=== PATIENT | female | born 2005 | race Hispanic/Latino ===

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

== ENCOUNTER 2023-02-27 20:08 | Emergency (ER) | payer OTHER ==
--- OUTSIDE RECORDS SUMMARY | 2023-02-27 20:13 | XMS REPORT | Continuity of Care Document ---
:2005 Author Organization [facility] t Address [address] [place] [address] Care Team Providers Name Role Phone LIDIA PHELAN Primary Care Physician Unavailable LES HUGGINS Attending Clinician Unavailable JOYCE ANDREWS Attending Clinician Unavailable ROBERTO GRIFFITH Attending Clinician Unavailable Roberto Griffith MD Attending Clinician WENDY JANE Attending Clinician Unavailable WENDY JANE Attending Clinician Unavailable Joyce Andrews CNM Attending Clinician Doctor Unassigned, Cesar Chavez Attending Clinician Unavailable ALEXIS MITCHELL Attending Clinician Unavailable Alexis Odell S Attending Clinician ANNABELLE JO Attending Clinician Unavailable BANDAR CASTILLO Attending Clinician Unavailable Bandar Castillo MD Attending Clinician Facundo Kwon Attending Clinician Unavailable Mayra Pandey Attending Clinician MAYRA SAAVEDRA Attending Clinician Unavailable RENETTA COON Attending Clinician Unavailable VIANEY GARCIA Attending Clinician Unavailable Renetta Clark Attending Clinician 2, [facility] Attending Clinician Unavailable Annabelle Jo PA-C Attending Clinician Nurse, [facility] Attending Clinician Unavailable Radha MORENO, Vianey Hernandez Attending Clinician Jovanny MORENO, Samanta Groves Attending Clinician Teri RN, Lucrecia M Attending Clinician Unavailable Belinda Hall DO Attending Clinician Les Huggins MD Attending Clinician Lab, [facility] Attending Clinician Unavailable Page Barker Attending Clinician PAGE RED Attending Clinician Unavailable PANKAJ REESE Attending Clinician Unavailable Butch MENDEZ, Mariaa Gibbs Attending Clinician MARIAA RAE Attending Clinician Unavailable LES HUGGINS Admitting Clinician Unavailable KNOW, DOES_NOT Admitting Clinician Unavailable Les Huggins MD Admitting Clinician BELINDA HALL Admitting Clinician Unavailable Payers Payer Name Policy Type Policy Number Effective Date Expiration Date Camille PETERSON [id number] 2020 HEALTH 00:00:00 Problems Condition Condition Condition Status Onset Resolution Last Treating Co mments Source Name Details Category Date Date Treatment Clinician Date Obesity Obesity Disease Active Univers (BMI (BMI 5-06 ity of 30-39.9) 30-39.9) 00:00: [address] Encounter Encounter Disease Active Uni vers for other for other 5-05 ity of general general 00:00: [place] counseling counseling 00 Me dical or advice or advice Bran ch on on contracept contracept ion ion BMI BMI Disease Active 2021- Univers 29.0-29.9, 29.0-29.9, 5-05 it y of adult adult 00:00: [address] BMI BMI Disease Active 2021- Univers 29.0-29.9, 29.0-29.9, 5-05 it y of adult adult 00:00: [address] Menorrhagi Menorrhagi Disease Active U nivers a with a with 3-16 ity of irregular irregular 00:00: [facility] s cycle cycle 00 Medical Branch Vitamin D Vitamin D Disease Active Uni vers deficiency deficiency 3-16 it y of 00:00: [place] 00 Medical Branch Depo-Prove Depo-Prove Disease Active U nivers ra ra 3-16 [place]y of contrace[place] kamran status 00 Me dical Branch Acute Acute Disease Active Overview: Univer s medial medial 9- Formattin ity of meniscus meniscus 00:00: g of this [place] as tear, tear, 00 note Medical left, left, might be Branch subsequent subsequent different encounter encounter from the original. Added automatic ally from request for surgery [id number] Allergies, Adverse Reactions, Alerts Allergy Allergy Status Severity Reaction(s) Onset Inactive Treating Comm ents Source Name Type Date Date Clinician No Known DA Active U [facility] NO KNOWN Drug Active Univers ALLERGIE Class ity of S [facility] Social History Social Habit Start Date Stop Date Quantity Comments Source History [facility] o f Alcohol Comment [place] [facility] ical [facility] Exposure to 2022-12-26 2023-01-05 Not sure [facility] SARS-CoV-2 00:00:00 08:00:00 [facility] (event) Branch Tobacco use and 2022-12-27 2022-12-27 Smokeless tobacco Un iversity of exposure 00:00:00 00:00:00 non-user [facility] Alcohol intake 2022-12-27 2022-12-27 Lifetime University of 00:00:00 00:00:00 non-drinker [place] [facility] (finding) Branch History [facility] 2020-04-05 2020-04-05 1 University o f Alcohol Frequency 00:00:00 00:00:00 [place] M edical Branch History [facility] 2020-04-05 2020-04-05 99 University o f Alcohol Std 00:00:00 00:00:00 [place] [facility] Drinks Branch History [facility] 2020-04-05 2020-04-05 1 University o f Alcohol Binge 00:00:00 00:00:00 [place] [facility] al Branch Sex Assigned At [birth year] Universit y of 00:00:00 00:00:00 [facility] Smoking Status Start Date Stop Date Source Never smoked tobacco [facility] Medications Ordered Filled Start Stop Current Ordering Indication Dosage Frequency Signature Comments Components Source Medication Medication Date Date Medication? Clinician (SIG) Name Name acetaminoph 2022- No 650mg 650 mg, U nivers en 01-05 Oral, ity of (TYLENOL) 13:15: 13:14 ONCE, [place] tablet 650 00 :00 dose, On Medic al mg Fri Branch 01/05/23 at 0815, ALLI amoxicillin 0 Yes [id number] 500mg Take 1 Univers 500 mg 5-12 capsule by ity of capsule 00:00: mouth in [address] and 1 capsule at noon and 1 capsule in the evening. ondansetron Yes [id number] 4mg Take 1 Univers 4 mg 5-12 tablet by ity of disintegrat 00:00: mouth [place] ing tablet 00 every 4 Medica l (four) Branch hours as needed for Nausea and Vomiting (N/V). naproxen 2022- Yes [id number] 500mg Take 1 Univers 500 mg -01-16 tablet by ity of tablet 00:00: 04:59 mouth in [place] 00 :00 [facility] and 1 tablet in the evening. Take with meals. Do all this for 10 days. norethindro Yes [id number] 1{tbl} Take 1 Univers ne-e.estrad 5-03 tablet by ity of ioL-iron 00:00: mouth in [place] (MICROGESTI [facility]) 1.5 morning. Branch mg-30 mcg (21)/75 mg (7) per tablet norethindro Yes [id number] 1{tbl} Take 1 Univers ne-e.estrad 5-03 tablet by ity of ioL-iron 00:00: mouth in [place] (MICROGESTI 00 [facility]) 1.5 morning. Branch mg-30 mcg (21)/75 mg (7) per tablet norethindro 0 Yes [id number] 1{tbl} Take 1 Univers ne-e.estrad 5-03 tablet by ity of ioL-iron 00:00: mouth in [place] (MICROGESTI 00 [facility]) 1.5 morning. Branch mg-30 mcg (21)/75 mg (7) per tablet naproxen 2022-0 Yes [id number] 500mg Take 1 U nivers (NAPROSYN) 2-01 tablet by ity of 500 mg 00:00: mouth in [place] tablet 00 the Medical morning Branch and 1 tablet in the evening. Take with meals. naproxen 2022-0 Yes [id number] 500mg Take 1 U nivers (NAPROSYN) 2- tablet by ity of 500 mg 00:00: mouth in [place] tablet 00 the Medical morning Branch and 1 tablet in the evening. Take with meals. naproxen 2022- No [id number] 500mg Take 1 Univers (NAPROSYN) 09-27- tablet by ity of 500 mg 00:00: 00:00 mouth in [place] tablet 00 :00 the Medical morning Branch and 1 tablet in the evening. Take with meals. naproxen 2022-0 2022- No [id number] 500mg Take 1 Univers (NAPROSYN) 09-27 tablet by ity of 500 mg 00:00: 00:00 mouth in [place] tablet 00 :00 the Medical morning Branch and 1 tablet in the evening. Take with meals. ibuprofen 2022- No 800mg 800 mg, Uni vers (IBU) 09-2530 Oral, ity of tablet 800 04:30: 04:33 ONCE, 1 [place] mg 00 :00 dose, On [facility] Branch 09/24/22 at 2230, ALLI No known No Univers medications -05 ity of 16:08: [address] No known No No known Unive rs medications -05 medication it y of 16:08: s [address] pantoprazol 2021- No 40mg Take 40 mg Univers e 40 mg EC 12-0505 by mouth ity of tablet 00:00: 00:00 daily. [place] 00 :00 [facility] metroNIDAZO 2021- No [id number] 500mg Take 1 Univers LE 500 mg 11-1605 tablet by ity of tablet 00:00: 00:00 mouth [place] 00 :00 every 12 Medical (twelve) Branch hours. ergocalcife 2021- No [id number] 84580N Take 1 Univers rol, 12-29 capsule by ity of vitamin d2, 00:00: 00:00 [place] 1,250 mcg 00 :00 weekly. Medical (50,000 Branch unit) capsule ranitidine 2021- 150mg Take 1 Uni vers (ZANTAC) 10-07 tablet by ity o f 150 mg 00:00: 00:00 mouth 2 [place] tablet 00 :00 (two) Medical times Branch daily. Follow up with your MD for further evaluation and treatment. Immunizations Ordered Immunization Filled Immunization Date Status Commen ts Source Name Name [facility] 2022-12-27 Completed University of 00:00:[place] [id number] 2022-12-27 Completed University of 00:00:00 [place] [id number] 2022-12-27 Completed University of 00:00:00 [facility] Meningococcal 2020-03-30 Completed University of Polysaccharide 00:00:00 [place] Medi lucia (groups A, C, Y and Branc h W-135) conjugate vaccine (MCV4P) Meningococcal 2020-03-30 Completed University of Polysaccharide 00:00:00 [place] Medi lucia (groups A, C, Y and Branc h W-135) conjugate vaccine (MCV4P) Meningococcal 2020-03-30 Completed University of Polysaccharide 00:00:00 [place] Medi lucia (groups A, C, Y and Branc h W-135) conjugate vaccine (MCV4P) [facility] 2016-04-17 Completed University of 00:00:00 [facility] Meningococcal 2016-04-17 Completed University of Polysaccharide 00:00:00 [place] Medi lucia (groups A, C, Y and Branc h W-135) conjugate vaccine (MCV4P) TDAP 2016-04-17 Completed University of 00:00:00 [facility] HPV9 2016-04-17 Completed University of 00:00:00 [facility] Meningococcal 2016-04-17 Completed University of Polysaccharide 00:00:00 [place] Medi lucia (groups A, C, Y and Branc h W-135) conjugate vaccine (MCV4P) TDAP 2016-04-17 Completed University of 00:00:00 [facility] HPV9 2016-04-17 Completed University of 00:00:00 [facility] Meningococcal 2016-04-17 Completed University of Polysaccharide 00:00:00 [place] Medi lucia (groups A, C, Y and Branc h W-135) conjugate vaccine (MCV4P) TDAP 2016-04-17 Completed University of 00:00:00 [facility] HEPATITIS A 2009-06-30 Completed University of 00:00:00 [facility] Varicella 2009-06-30 Completed University of (varivax)(chicken 00:00:00 [place] M edical pox) Branch HEPATITIS A 2009-06-30 Completed University of 00:00:00 [facility] Varicella 2009-06-30 Completed University of (varivax)(chicken 00:00:00 [facility] edical pox) Branch HEPATITIS A 2009-06-30 Completed University of 00:00:00 [facility] Varicella 2009-06-30 Completed University of (varivax)(chicken 00:00:00 [facility] edical pox) Branch DTaP, Unspecified 2007-06-10 Completed Univers ity of Formulation 00:00:00 [facility] HEPATITIS A 2007-06-10 Completed University of 00:00:00 [facility] Hib-HbOC 2007-06-10 Completed University of 00:00:00 [facility] MMR 2007-06-10 Completed University of 00:00:00 [facility] Pneumococcal 7 2007-06-10 Completed University of Conjugate, PCV7 00:00:00 [place] [facility] ical (Prevnar7) Branch IPV 2007-06-10 Completed University of 00:00:00 [facility] DTaP, Unspecified 2007-06-10 Completed Univers ity of Formulation 00:00:00 [facility] HEPATITIS A 2007-06-10 Completed University of 00:00:00 [facility] Hib-HbOC 2007-06-10 Completed University of 00:00:00 [facility] MMR 2007-06-10 Completed University of 00:00:00 [facility] Pneumococcal 7 2007-06-10 Completed University of Conjugate, PCV7 00:00:00 [place] [facility] ical (Prevnar7) Branch IPV 2007-06-10 Completed University of 00:00:00 [facility] DTaP, Unspecified 2007-06-10 Completed Univers ity of Formulation 00:00:00 [facility] HEPATITIS A 2007-06-10 Completed University of 00:00:00 [facility] Hib-HbOC 2007-06-10 Completed University of 00:00:00 [facility] MMR 2007-06-10 Completed University of 00:00:00 [place] [facility] Pneumococcal 7 2007-06-10 Completed University of Conjugate, PCV7 00:00:00 [place] [facility] ical (Prevnar7) Branch IPV 2007-06-10 Completed University of 00:00:00 [facility] Branch DTaP, Unspecified 2004-03-30 Completed Univers ity of Formulation 00:00:00 [facility] HIB 4 Dose Schedule 2004-03-30 Completed Unive rsity of 00:00:00 [facility] MMR 2004-03-30 Completed University of 00:00:00 [facility] Branch IPV 2004-03-30 Completed University of 00:00:00 [facility] Branch Varicella 2004-03-30 Completed University of (varivax)(chicken 00:00:00 [place] M [facility]ical pox) Branch DTaP, Unspecified 2004-03-30 Completed Univers ity of Formulation 00:00:00 [facility] HIB 4 Dose Schedule 2004-03-30 Completed Unive rsity of 00:00:00 [facility] MMR 2004-03-30 Completed University of 00:00:00 [facility] IPV 2004-03-30 Completed University of 00:00:00 [facility] Varicella 2004-03-30 Completed University of (varivax)(chicken 00:00:00 [place] M edical pox) Branch DTaP, Unspecified 2004-03-30 Completed Univers ity of Formulation 00:00:00 [facility] HIB 4 Dose Schedule 2004-03-30 Completed Unive rsity of 00:00:00 [facility] MMR 2004-03-30 Completed University of 00:00:00 [facility] IPV 2004-03-30 Completed University of 00:00:00 [facility] Varicella 2004-03-30 Completed University of (varivax)(chicken 00:00:00 [place] M edical pox) Branch DTaP, Unspecified 2003 Completed Univers ity of Formulation 00:00:00 [facility] Hep B, Adol or Pedi 2003 Completed Unive rsity of Dosage 00:00:00 [facility] HIB 4 Dose Schedule 2003 Completed Unive rsity of 00:00:00 [facility] Pneumococcal 7 2003 Completed University of Conjugate, PCV7 00:00:00 [place] [facility] ical (Prevnar7) Branch IPV 2003 Completed University of 00:00:00 [facility] Branch DTaP, Unspecified 2003 Completed Univers ity of Formulation 00:00:00 [facility] Hep B, Adol or Pedi 2003 Completed Unive rsity of Dosage 00:00:00 [facility] HIB 4 Dose Schedule 2003 Completed Unive rsity of 00:00:00 [facility] Pneumococcal 7 2003 Completed University of Conjugate, PCV7 00:00:00 [place] [facility] ical (Prevnar7) Branch IPV 2003 Completed University of 00:00:00 [facility] DTaP, Unspecified 2003 Completed Univers ity of Formulation 00:00:00 [facility] Hep B, Adol or Pedi 2003 Completed Unive rsity of Dosage 00:00:00 [facility] HIB 4 Dose Schedule 2003 Completed Unive rsity of 00:00:00 [facility] Pneumococcal 7 2003 Completed University of Conjugate, PCV7 00:00:00 [place] [facility] ical (Prevnar7) Branch IPV 2003 Completed University of 00:00:00 [facility] DTaP, Unspecified 2003 Completed Univers ity of Formulation 00:00:00 [facility] Hep B, Adol or Pedi 2003 Completed Unive rsity of Dosage 00:00:00 [facility] HIB 4 Dose Schedule 2003 Completed Unive rsity of 00:00:00 [facility] Pneumococcal 7 2003 Completed University of Conjugate, PCV7 00:00:00 [place] Med ical (Prevnar7) Branch IPV 2003 Completed University of 00:00:00 [facility] DTaP, Unspecified 2003 Completed Univers ity of Formulation 00:00:00 [facility] Hep B, Adol or Pedi 2003 Completed Unive rsity of Dosage 00:00:00 [facility] HIB 4 Dose Schedule 2003 Completed Unive rsity of 00:00:00 [facility] Pneumococcal 7 2003 Completed University of Conjugate, PCV7 00:00:00 [place] [facility] ical (Prevnar7) Branch IPV 2003 Completed University of 00:00:00 [facility] DTaP, Unspecified 2003 Completed Univers ity of Formulation 00:00:00 [facility] Hep B, Adol or Pedi 2003 Completed Unive rsity of Dosage 00:00:00 [facility] HIB 4 Dose Schedule 2003 Completed Unive rsity of 00:00:00 [facility] Pneumococcal 7 2003 Completed University of Conjugate, PCV7 00:00:00 [place] Med ical (Prevnar7) Branch IPV 2003 Completed University of 00:00:00 [facility] Hep B, Adol or Pedi 2003 Completed Unive rsity of Dosage 00:00:00 [facility] Hep B, Adol or Pedi 2003 Completed Unive rsity of Dosage 00:00:00 [facility] Hep B, Adol or Pedi 2003 Completed Unive rsity of Dosage 00:00:00 [facility] Vital Signs Vital Name Observation Time Observation Value Comments Source Body temperature 2023-01-05 14:10:13 37.72 [place] Univ ersity of [facility] Systolic blood 2023-01-05 14:00:00 119 mm[Hg] Univer sity of pressure [facility] Diastolic blood 2023-01-05 14:00:00 79 mm[Hg] Unive rsity of pressure [facility] Heart rate 2023-01-05 14:00:00 89 /min [facility] Respiratory rate 2023-01-05 14:00:00 15 /[facility] in 2023-01-05 14:00:00 96 /min [facility] Arterial blood by [facility] Pulse oximetry [place] Body height 2023-01-05 13:02:00 152.4 cm [facility] Body weight 2023-01-05 13:02:00 72.576 kg [facility] BMI 2023-01-05 13:02:00 31.25 kg/m2 [facility] Systolic blood 2022-12-27 16:46:00 105 mm[Hg] Univer sity of pressure [facility] Diastolic blood 2022-12-27 16:46:00 70 mm[Hg] Unive rsity of pressure [facility] Heart rate 2022-12-27 16:46:00 71 /min [facility] Body temperature 2022-12-27 16:46:00 36.78 [place] Univ ersity of [place] [facility] Respiratory rate 2022-12-27 16:46:00 18 /min Univ ersity of [place] [facility] Body height 2022-12-27 16:46:00 152.4 cm Universi ty of [place] [facility] [place] Body weight 2022-12-27 16:46:00 73.539 kg Universi ty of [place] [facility] BMI 2022-12-27 16:46:00 31.66 kg/m2 Universi ty of [facility] Systolic blood 2022-09-28 02:27:00 133 mm[Hg] Univer sity of pressure [place] [facility] Diastolic blood 2022-09-28 02:27:00 91 mm[Hg] Unive rsity of pressure [facility] Branch Heart rate 2022-09-28 02:27:00 94 /min Universi ty of [facility] Body temperature 2022-09-28 02:27:00 37.39 [place] Univ ersity of [facility] Respiratory rate 2022-09-28 02:27:00 16 /min Univ ersity of [facility] Body height 2022-09-28 02:27:00 152.4 cm Universi ty of [place] [facility] Body weight 2022-09-28 02:27:00 68.13 kg Universi ty of [place] [facility] BMI 2022-09-28 02:27:00 29.33 kg/m2 Universi ty of [place] [facility] Oxygen saturation in 2022-09-28 02:27:00 100 /min University of Arterial blood by [facility] Pulse oximetry Branch Systolic blood 2022-09-25 03:45:00 124 mm[Hg] Univer sity of pressure [place] [facility] Diastolic blood 2022-09-25 03:45:00 79 mm[Hg] Unive rsity of pressure [facility] Heart rate 2022-09-25 03:45:00 81 /min Universi ty of [facility] Body temperature 2022-09-25 03:45:00 36.89 [place] Univ ersity of [facility] Respiratory rate 2022-09-25 03:45:00 15 /min Univ ersity of [facility] Branch Body height 2022-09-25 03:45:00 152.4 cm Universi ty of [facility] Branch Body weight 2022-09-25 03:45:00 68.04 kg [facility] BMI 2022-09-25 03:45:00 29.29 kg/m2 [facility] Oxygen saturation in 2022-09-25 03:45:00 100 /min [facility] blood by [facility] Pulse oximetry Branch Systolic blood 2021-12-29 20:04:00 134 mm[Hg] Univer sity of pressure [facility] Diastolic blood 2021-12-29 20:04:00 86 [facility]Hg[facility] 2021-12-29 20:04:00 76 /min [facility] Body temperature 2021-12-29 20:04:00 36.94 [place] [facility] Respiratory rate 2021-12-29 20:04:00 18 /min [facility] Body height 2021-12-29 20:04:00 152.4 cm [facility] Body weight 2021-12-29 20:04:00 68.856 kg [facility] BMI 2021-12-29 20:04:00 29.65 kg/m2 [facility] Body mass index 2021-12-29 20:04:00 93.49 % Unive rsity of (BMI) [Percentile] [facility] ica Per age and sex Branch Procedures Procedure Date / Time Performing Clinician Source Performed RAPID STREP SCREEN FOR 2023-01-05 13:18:00 [facility] GROUP A [facility] RAPID INFLUENZA A/B 2023-01-05 13:09:00 Roberto Griffith [facility] COVID-19 (ID NOW RAPID 2023-01-05 13:09:00 [facility] TESTING) [facility] THYROID STIMULATING 2022-12-27 17:10:00 Joyce Andrews [facility] HORMONE [facility] CBC WITH DIFF 2022-12-27 17:10:00 Joyce Andrews [facility] GLYCOSYLATED HEMOGLOBIN 2022-12-27 17:10:00 Joyce Andrews [facility] (A1C) [facility] RUBELLA SCREEN IGG 2022-12-27 17:10:00 [facility] HCV ANTIBODY 2022-12-27 17:10:00 Joyce Andrews [facility] GC & CHLAMYDIA 2022-12-27 17:10:00 Joyce Andrews [facility] AMPLIFIED ASSAY [facility] HIV 1/2 AG-AB WITH 2022-12-27 17:10:00 [facility] REFLEX [facility] SYPHILIS IGG/IGM 2022-12-27 17:10:00 Joyce Andrews [facility] GARDASIL 9 (HPV 9V) 2022-12-27 16:53:08 Joyce Andrews [facility] VACCINE [facility] POCT TEST 2022-12-27 16:47:00 Joyce Andrews [facility] ASSIGNMENT OF BENEFITS 2022-12-27 15:53:31 Doctor Unassigned, No [facility] CONSENT/REFUSAL FOR 2022-09-28 02:20:10 [facility] POCT TEST 2022-09-25 04:35:00 Bandar Castillo [facility] NOTICE OF PRIVACY 2022-09-25 03:45:44 Doctor Unassigned, No [facility] PRACTICES [facility] CONSENT/REFUSAL FOR 2022-09-25 03:44:56 [facility] Encounters Start End Encounter Admission Attending Care Care Encounter Source Date/Time Date/Time Type Type Clinicians Facility Department ID 2021-06-[address] [facility] [id number] Univers 08:58:39 [facility] 2021-06-[address] [facility] [id number] Univers 18:43:46 LES [facility] 2023-03-27 2023-03-[address] [facility] [id number] Univers 13:30:00 13:30:00 JOYCE [facility] 2023-01-05 2023-01-05 Emergency X NACHO [facility] ERT [id number] Univers 08:03:00 09:46:00 ROBERTO [facility] 2023-01-05 2023-01-05 Emergency Nacho [facility] [id number] Univers 08:03:00 09:46:00 Roberto ROBERTO [id number] i ty of [place] [id number] [facility] [id number] [address] 2022-12-27 2022-12-[address] [facility] [id number] Univers 11:00:00 12:13:57 JOYCE [facility] 2022-12-27 2022-12-27 [facility] [id number] Univers 11:00:00 12:13:57 Visit Joyce Carl TANNERY GUMMER [id number] i ty of [facility] [id number] [place] as MATERNAL [id number] Med ical & CHILD [address] [place] [address] 2022-12-27 2022-12-27 Orders Doctor BLAYNE [id number] Univers 00:00:00 00:00:00 Only Unassigned, ULISES [id number] ity of Cesar Chavez [facility] [id number] [place] as [id number] [address] 2022-09-27 2022-09-27 Emergency X ANDRES [facility] ERT [id number] Univers 20:33:00 21:45:00 ALEXIS [facility] 2022-09-27 2022-09-27 [facility] [id number] Univers 20:33:00 21:45:00 Alexis ROBERTO [id number] i ty of [place] [id number] [facility] [id number] [address] 2022-09-27 2022-09-[address] [facility] [id number] Univers 10:15:00 10:15:00 ANNABELLE [facility] 2022-09-24 2022-09-24 Emergency X JONATHAN [facility] ERT [id number] Univers 21:55:00 23:00:00 BANDAR ity of [facility] 2022-09-24 2022-09-24 Emergency [facility] 1.2.663.502 [id number] Univers 21:55:00 23:00:00 Bandar Obrien IRON [place] 350.1.13.10 ity of [place] 4.2.7.2.686 [facility] [phone] [facility] [address] 2022-01-06 2022-01-06 Outpatient Facundo Almanzar [facility] DAYS [id number] [facility] 09:56:00 09:56:[address] [place] [address] 2021-12-30 2021-12-30 Telephone [facility] 1.2.668.559 [id number] Univers 00:00:00 00:00:00 Mayra Tony TANNERY GUMMER 350.1.13.10 ity of [facility] 4.2.7.2.686 Marcos as MATERNAL [phone] Med ical & CHILD [address] [place] [address] 2021-12-29 2021-12-[address] [facility] [id number] Univers 15:15:00 15:46:42 JESSEARSEN ity o f [facility] 2021-12-29 2021-12-29 Office [facility] 1.2.840.114 [id number] Univers 15:15:00 15:46:42 Visit Mayra Tony TANNERY GUMMER 350.1.13.10 ity of [facility] 4.2.7.2.686 Marcos as MATERNAL [phone] Med ical & CHILD [address] [place] [address] 2021-12-29 2021-12-29 Orders Doctor CISNEROS 1.2.840.114 [id number] Univers 00:00:00 00:00:00 Only Unassigned, ULISES 350.1.13.10 ity of [place] [facility] 4.2.7.2.686 Marcos as [phone] [facility] [address] 2021-12-22 2021-12-[address] [facility] [id number] Univers 09:45:00 09:45:[address] [facility] 2021-12-22 2021-12-[address] [facility] [id number] Univers 09:45:00 09:45:[address] [facility] 2021-12-14 2021-12-[address] [facility] [id number] Univers 15:00:00 15:00:00 [facility] 2021-12-08 2021-12-[address] [facility] [id number] Univers 08:53:50 23:59:00 [facility] 2021-12-08 2021-12-[address] [facility] [id number] Univers 08:45:00 10:02:07 [facility] 2021-12-08 2021-12-[address] [facility] [id number] Univers 08:45:00 10:02:07 [facility] 2021-12-08 2021-12-08 Office [facility] 1.2.840.114 [id number] Univers 08:45:00 09:00:[address] [facility] 350.1.13.10 it y of [place] 4.2.7.2.686 Marcos as MAURICE?BLEA [phone] In derrellal JOHANNY [address] [place] [address] MEDICAL OFFICE BUILDING 2021-12-01 2021-12-[address] [facility] [id number] Univers 14:15:00 14:15:00 [facility] 2021-12-01 2021-12-[address] [facility] [id number] Univers 14:15:00 14:15:00 [facility] 2021-11-29 2021-11-29 Construction Materials Tester 2, Adc Lab [facility] 1.2.840.114 [id number] Univers 09:15:00 09:30:00 Visit Annabelle Jo 350.1.13.10 ity of [place].2.[place] [phone] [facility] 353 [facility] 2021-11-29 2021-11-[address] [facility] [id number] Univers 09:15:00 09:15:[address] [facility] 2021-11-29 2021-11-[address] [facility] [id number] Univers 09:15:00 09:15:[address] [facility] 2021-11-29 2021-11-29 Office Sandro [facility] 1.2.436.736 [id number] Univers 08:30:00 08:30:00 Visit Annabelle ROBERTO 350.1.13.10 i ty of [place].2.7.2.[place] [phone] [address] 2021-11-24 2021-11-24 Orders Doctor BLAYNE 1.2.840.114 [id number] Univers 00:00:00 00:00:00 Only Unassigned, ULISES 350.1.13.10 ity of [facility] 4.2.7.2.686 Marcos as [phone] [address] 2021-11-17 2021-11-[address] [facility] [id number] Univers 15:00:00 15:00:[address] [facility] 2021-11-09 2021-11-[address] [facility] [id number] Univers 09:00:00 09:00:00 ANNABELLE [facility] 2021-09-21 2021-09-21 Nurse Nurse, [facility] 1.2.840.114 [id number] Univers 15:30:00 15:41:13 Visit Vianey Garcia 350.1.13.10 ity of [place].2.[place] [phone] [address] 2021-09-21 2021-09-[address] [facility] [id number] Univers 15:30:00 15:30:[address] [facility] 2021-09-13 2021-09-13 Outpatient R RADHA, [facility] [id number] Univers 15:30:00 15:30:00 VIANEY ity of [facility] 2021-08-03 2021-08-[address] [facility] [id number] Univers 15:30:00 15:30:00 ity of [facility] 2021-05-11 2021-05-11 Nurse Nurse, [facility] 1.2.840.114 [id number] Univers 15:44:35 16:44:44 Visit Jovanny Samantamane Roberto 350.1.13.10 ity [facility] 4.2.7.2.686 [place] [phone] In dical [address] 2021-05-11 2021-05-[address] [facility] [id number] Univers 08:00:00 08:00:[address] [facility] 2021-05-11 2021-05-11 Orders Doctor CISNEROS 1.2.840.114 [id number] Univers 00:00:00 00:00:00 Only Unassigned, ULISES 350.1.13.10 ity of [facility] 4.2.7.2.686 Marcos as [phone] [facility] [address] 2021-05-10 2021-05-[address] [facility] [id number] Univers 08:00:00 08:00:00 ity of [facility] 2021-05-03 2021-05-[address] [facility] [id number] Univers 15:00:00 15:00:00 ity of [facility] 2021-04-30 2021-04-30 Nurse Lucrecia Williamson 1.2.840.114 [id number] Univers 00:00:00 00:00:00 Triage ULISES 350.1.13.10 it y of [facility] 4.2.7.2.686 Marcos as [phone] [facility] [address] 2021-03-18 2021-03-[address] [facility] [id number] Univers 15:30:00 15:30:00 ity of [facility] 2021-03-16 2021-03-[address] [facility] [id number] Univers 14:30:00 14:30:[address] [facility] 2021-03-16 2021-03-16 Telephone [facility] 1.2.941.483 [id number] Univers 00:00:00 00:00:00 Vianey Pedroton 350.1.13.10 ity of [place].2.7.2.686 [place] [phone] [facility] 134 [facility] 2021-02-25 2021-02-[address] [facility] [id number] Univers 10:15:00 10:15:00 [facility] 2021-02-17 2021-02-17 [facility] [id number] Univers 15:00:00 15:00:00 RENETTA [facility] 2021-02-11 2021-02-[address] [facility] [id number] Univers 10:00:00 10:00:00 RENETTA [facility] 2020-12-15 2020-12-15 Construction Materials Tester 2, [facility] 1.2.840.114 [id number] Univers 14:23:49 14:38:49 Visit Tigrezahida Vianey Hernandez Felisa 350.1.13.10 ity of [place].2.7.2.[place] [phone] [facility] 353 [facility] 2020-12-15 2020-12-15 Nurse Nurse, [facility] 1.2.840.114 [id number] Univers 13:51:57 14:18:57 Visit TigreVianey teagueton 350.1.13.10 ity of [place].2.[place] [phone] [facility] 134 [facility] 2020-12-15 2020-12-[address] [facility] [id number] Univers 14:00:00 14:00:[address] [facility] 2020-12-06 2020-12-06 Out[facility] [id number] Univers 13:30:00 13:30:00 [facility] 2020-11-20 2020-11-20 Emergency [facility] 1.2.840.114 [id number] Univers 17:26:00 17:37:00 Belinda Fenton Felisa 350.1.13.10 ity of [place] 4.2.7.2.686 [place] [phone] [facility] [address] 2020-11-20 2020-11-20 Orders Doctor BLAYNE 1.2.840.114 [id number] Univers 00:00:00 00:00:00 Only Unassigned, ULISES 350.1.13.10 [facility] 4.2.7.2.686 Marcos as [phone] [facility] [address] 2020-11-16 2020-11-16 [facility] 1.2.840.114 [id number] Univers 00:00:00 00:00:00 Management Vianey David Fel[place] 350.1.13.10 ity of [place].2.[place] [phone] In dical nal [address] [place] [address] 2020-11-09 2020-11-09 [facility] 1.2.840.114 [id number] Univers 13:35:56 15:09:56 Visit Vianey Hernandez Felisa 350.1.13.10 ity of [place] 4.2.7.2.686 [place] [phone] In dical nal [address] [place] [address] 2020-11-09 2020-11-09 Outpatient R RADHA, [facility] [id number] Univers 13:30:00 13:30:[address] [facility] 2020-11-08 2020-11-[address] [facility] [id number] Univers 15:45:00 15:45:[address] [facility] 2020-11-05 2020-11-05 Outpatient R RADHA, [facility] [id number] Univers 15:00:00 15:00:[address] [facility] 2020-11-04 2020-11-04 Outpatient R ADUM, [facility] [id number] Univers 14:30:00 14:30:00 VIANEY ity of [facility] 2020-11-02 2020-11-02 Telephone Adum, [facility] 1.2.941.456 [id number] Univers 00:00:00 00:00:00 Vianey Roberto 350.1.13.10 ity of [place].2.[place] [phone] In dical nal 134 [facility] 2020-09-23 2020-09-23 Orders Doctor BLAYNE 1.2.840.114 [id number] Univers 00:00:00 00:00:00 Only Unassigned, ULISES 350.1.13.10 [facility] 4.2.7.2.686 Marcos as [phone] [address] 2020-09-15 2020-09-15 Case Ad, [facility] 1.2.840.114 [id number] Univers 00:00:00 00:00:00 Management Vianey Roberto 350.1.13.10 ity of [place] 4[place]2.7.2.686 [place] [phone] In dical nal 134 [facility] 2020-09-10 2020-09-10 Case Ad, [facility] 1.2.840.114 [id number] Univers 00:00:00 00:00:00 Management Vianey Roberto 350.1.13.10 ity of [place] 4.2.7.2.686 [place] [phone] In dical nal 134 [facility] 2020-09-09 2020-09-09 Construction Materials Tester 2, Adc Lab [facility] 1.2.840.114 [id number] Univers 10:14:30 10:29:30 Visit Adum, Vianey Roberto 350.1.13.10 ity of [place] 4.2.7.2.686 [place] [phone] In dical nal 353 [facility] 2020-09-09 2020-09-09 Office Adum, [facility] 1.2.840.114 [id number] Univers 08:31:02 09:58:53 Visit Vianey Roberto 350.1.13.10 ity of [place] 4.2.7.2.686 [place] [phone] Me dical nal 134 [facility] 2020-09-09 2020-09-[address] [facility] [id number] Univers 09:00:00 09:00:[address] [facility] 2020-09-09 2020-09-09 Orders Doctor BLAYNE 1.2.840.114 [id number] Univers 00:00:00 00:00:00 Only Unassigned, ULISES 350.1.13.10 ity of [facility] 4.2.7.2.686 Marcos as [phone] [address] 2020-06-15 2020-06-15 Orders Doctor BLAYNE 1.2.840.114 [id number] Univers 00:00:00 00:00:00 Only Unassigned, ULISES 350.1.13.10 ity of [facility] 4.2.7.2.686 Marcos as [id number] [address] 2020-06-07 2020-06-07 Office [facility] 1.2.840.114 [id number] Univers 15:12:17 15:27:17 Visit [facility] 350.1.13.10 it y of Surgical 4.2.7.2.686 Marcos as Specialti [phone] In dical 198 [facility] 2020-06-07 2020-06-07 Out[facility] [id number] Univers 15:00:00 15:00:[address] [facility] 2020-05-24 2020-05-24 [facility] 1.2.840.114 [id number] Univers 05:58:00 09:24:00 Encounter Les Roberto 350.1.13.10 ity of [place].2.[place] Surgical [phone] [address] 2020-05-22 2020-05-22 Laboratory Lab, Adc Fam Pob I [facility] 1.2. 840.114 [id number] Univers 13:24:32 13:44:32 Only Page Red [facility] 350.1.13.10 ity of [place] 4.2.7.2.686 Marcos as Professio [phone] Me dical nal [address] Office [facility] 2020-05-22 2020-05-[address] [facility] [id number] Univers 13:20:00 13:20:00 PAGE [facility] 2020-05-21 2020-05-[address] [facility] [id number] Univers 11:00:00 11:00:[address] [facility] 2020-05-17 2020-05-17 Prep [facility] 1.2.840.114 [id number] Univers 00:00:00 00:00:00 Surgery Les Hernandez Health 350.1.13.10 it y of Surgical 4.2.7.2.686 Marcos as Specialti [phone] Me dical es 198 [facility] 2020-05-13 2020-05-13 Office Renetta Coon [facility] 1.2.840.114 [id number] Univers 11:14:45 11:39:37 Visit Les Huggins I.Predictus 350.1.13.10 ity of Surgical 4.2.7.2.686 Marcos as Specialti [phone] Me dical es 198 [facility] 2020-05-13 2020-05-13 Outpatient [facility] [id number] Univers 11:00:00 11:00:00 LES [facility] 2020-05-13 2020-05-13 Letter [facility] 1.2.840.114 [id number] Univers 00:00:00 00:00:00 (Out) Renetta S Health 350.1.13.10 it y of Surgical 4.2.7.2.686 Marcos as Specialti [phone] In dical es 198 [facility] 2020-05-13 2020-05-13 Letter [facility] 1.2.840.114 [id number] Univers 00:00:00 00:00:00 (Out) Renetta S Health 350.1.13.10 it y of Surgical 4.2.7.2.686 Marcos as Specialti [phone] In dical es 198 [facility] 2020-05-05 2020-05-05 Hospital [facility] 1.2.840.114 [id number] Univers 15:15:00 23:59:00 Encounter Les L SPECIALTY 350.1.13.10 ity of [place] 4.2.7.2.686 [place] C[place] AT [phone] In dicmerle FAJARDO 804 [facility] 2020-05-05 2020-05-05 Outpatient [facility] [id number] Univers 00:00:00 00:00:00 [facility] 2020-04-15 2020-04-15 Orders Doctor BLAYNE 1.2.840.114 [id number] Univers 00:00:00 00:00:00 Only Unassigned, ULISES 350.1.13.10 ity of [place] [facility] 4.2.7.2.686 Marcos as [phone] [address] 2020-04-08 2020-04-08 Telephone [facility] 1.2.840.114 [id number] Univers 00:00:00 00:00:00 Les L Health 350.1.13.10 it y of Surgical 4.2.7.2.686 Marcos as Specialti [phone] In dical es 198 [facility] 2020-04-05 2020-04-05 Office [facility] 1.2.840.114 [id number] Univers 14:45:57 15:00:57 Visit [facility] 350.1.13.10 it y of Surgical 4.2.7.2.686 Marcos as Specialti [phone] In dical es 198 [facility] 2020-04-05 2020-04-05 Outpatient Cecily [facility] [id number] Univers 15:00:00 15:00:[address] [facility] 2020-04-01 2020-04-01 Outpatient Cec[facility] [id number] Univers 14:00:00 14:00:00 [facility]ETTA [facility] 2020 2020 Emergency [facility] 1.2.752.178 [id number] Univers 11:37:49 13:13:00 Mariaa Roberto 350.1.13.10 [facility] 4.2.7.2.686 [facility] [phone] [address] 2020 2020 Aishwarya X BUTCH [facility] ERT [id number] Univers 11:37:49 13:13:[address] [facility] Results Test Description Test Time Test Comments Results Result Comments Source RUBELLA SCREEN (ANGELIC) IGG 2022-12-28 19:07:18 Test Item Value Reference Range Interpretation Comme nts Rubella screen IgG (test code = Positive Negative [id number]) ZORAIDA (test code = ZORAIDA) Positive - Indicates the patient was exposed to Rubella through infection or vaccination.Negative - Indicates the patient could be susceptible to Rubella infection.Equivocal - A second specimen should be sent. [facility]IC[facility] [id number] 19:07:18 Test Item Value Reference Range Interpretation Comments Rubella screen IgG Positive Negative (test code = 5232324587) ZORAIDA (test code = ZORAIDA) Positive - Indicates the patient was exposed to Rubella through infection or vaccination.Negative - Indicates the patient could be susceptible to Rubella infection.Equivocal - A second specimen should be sent. [facility] ONLY - SYPHILIS [id number] 17:26:01 Test Item Value Reference Range Interpretation Comments Syphilis IgG/IgM (test Non-reactive Non-reactive code = 08788-0) ZORAIDA (test code = ZORAIDA) Non-reactive - No serologic evidence of T. pallidum infection. Cannot exclude incubating or early syphilis. Submit a second specimen in 2-4 weeks if syphilis is clinically suspected. Equivocal - Further testing to follow. Reactive - Further testing to follow. Lab Interpretation (test Normal code = 56842-3) [facility] ONLY - SYPHILIS [id number] 17:26:01 Test Item Value Reference Range Interpretation Comments Syphilis IgG/IgM (test Non-reactive Non-reactive code = 32384-1) ZORAIDA (test code = ZORAIDA) Non-reactive - No serologic evidence of T. pallidum infection. Cannot exclude incubating or early syphilis. Submit a second specimen in 2-4 weeks if syphilis is clinically suspected. Equivocal - Further testing to follow. Reactive - Further testing to follow. Lab Interpretation (test Normal code = 96663-7) [facility] Center[facility]OGLOBIN (A1C)2022-12-28 15:57:54 Test Item Value Reference Range Interpretation Comments HGB A1C (test code = 5.5 % 4.0-5.7 4548-4) ZORAIDA (test code = ZORAIDA) Reference RangesNormal: <5.7%Prediabetes: 5.7 - 6.4%Diabetes: > 6.5% Lab Interpretation (test Normal code = 12390-6) [facility] (A1C)2022-12-28 15:57:54 Test Item Value Reference Range Interpretation Comments HGB A1C (test code = 5.5 % 4.0-5.7 4548-4) ZORAIDA (test code = ZORAIDA) Reference RangesNormal: <5.7%Prediabetes: 5.7 - 6.4%Diabetes: > 6.5% Lab Interpretation (test Normal code = 05696-5) [facility] Center[facility]/2 AG-AB WITH [id number] 12:20:58 Test Item Value Reference Range Interpretation Comments HIV 0.07 Negative Semi-quantitative (test code = 11006-7) ZORAIDA (test code = Non-reactive for HIV-1 ZORAIDA) antigen and HIV-1/HIV-2 antibodies. ?No laboratory evidence of HIV infection. ?Repeat in 2-4 weeks if acute HIV infection is suspected. [facility] 1/2 AG-AB WITH [id number] 12:20:58 Test Item Value Reference Range Interpretation Comments HIV 0.07 Negative Semi-quantitative (test code = 09018-0) ZORAIDA (test code = Non-reactive for HIV-1 ZROAIDA) antigen and HIV-1/HIV-2 antibodies. ?No laboratory evidence of HIV infection. ?Repeat in 2-4 weeks if acute HIV infection is suspected. [facility] Center[facility] [id number] 09:03:31 Test Item Value Reference Range Interpretation Comments HCV Ab (test code = 05067-6) Negative HCV Semi-Quantitative (test code = 0.02 58418-7) [facility] [id number] 09:03:31 Test Item Value Reference Range Interpretation Comments HCV Ab (test code = 44469-1) Negative HCV Semi-Quantitative (test code = 0.02 03277-8) [facility] CenterTHY[facility]ID STIMULATING [id number] 08:28:04 Test Item Value Reference Range Interpretation Comments TSH (test code = 0.99 See_Comment [Automated message] [id number]) The system [employer] generated this result transmitted ref erence range: 0.45 - 4 .70 mIU/L. The refe rence range was not u sed to interpret this result as normal/abnor mal. Lab Interpretation (test Normal code = 01319-3) [facility] CenterTHY[facility]ID STIMULATING [id number] 08:28:04 Test Item Value Reference Range Interpretation Comments TSH (test code = 0.99 See_Comment [Automated message] [id number]) The system [employer] generated this result transmitted ref erence range: 0.45 - 4 .70 mIU/L. The refe rence range was not u sed to interpret this result as normal/abnor mal. Lab Interpretation (test Normal code = 84028-5) [facility] WITH [id number] 07:54:04 Test Item Value Reference Range Interpretation Comments WBC (test code = 9.41 See_Comment [Automated 6690-2) message] The sy stem which generated this result transmitted reference range : 4.30 - 11.10 10*3/?L. The reference range was not used to interpret this result as normal/abnormal . RBC (test code = 4.84 See_Comment [Automated 789-8) message] The sy stem which generated this result transmitted reference range : 3.93 - 5.25 10*6/?L. The reference range was not used to interpret this result as normal/abnormal . HGB (test code = 14.1 g/dL 11.6-15.0 718-7) HCT (test code = 43.1 % 35.7-45.2 4544-3) MCV (test code = 89.0 fL 80.6-95.5 787-2) MCH (test code = 29.1 pg 25.9-32.8 785-6) MCHC (test code = 32.7 g/dL 31.6-35.1 786-4) RDW-SD (test code = 42.5 fL 39.0-49.9 78260-8) RDW-CV (test code = 13.0 % 12.0-15.5 788-0) PLT (test code = 232 See_Comment [Automated 777-3) message] The sy stem which generated this result transmitted reference range : 166 - 358 10*3/ ?L. The reference r desmond was not used to interpret this result as normal/abnormal . MPV (test code = 11.5 fL 9.5-12.9 46707-0) NRBC/100 WBC (test 0.0 See_Comment [Automat ed code = 6773672317) message] The system which generated this result transmitted reference range : 0.0 - 10.0 /100 WBCs. The refer ence range was not u sed to interpret th is result as normal/abnormal . NRBC x10^3 (test code See_Comment [Auto mated = 1368515316) message] The s ystem which generated this result transmitted reference range : 10*3/?L. The reference range was not used to interpret this result as normal/abnormal . GRAN MAT (NEUT) % 57.6 % (test code = 770-8) IMM GRAN % (test code 0.20 % = 5766749479) LYMPH % (test code = 29.9 % 736-9) MONO % (test code = 8.6 % 5905-5) EOS % (test code = 2.7 % 713-8) BASO % (test code = 1.0 % 706-2) GRAN MAT x10^3(ANC) 5.43 10*3/uL 1.88-7.09 (test code = 3557127968) IMM GRAN x10^3 (test 0.00-0.06 code = 9191509204) LYMPH x10^3 (test code 2.81 10*3/uL 1.32-3.29 = 731-0) MONO x10^3 (test code 0.81 10*3/uL 0.33-0.92 = 742-7) EOS x10^3 (test code = 0.25 10*3/uL 0.03-0.39 711-2) BASO x10^3 (test code 0.09 10*3/uL 0.01-0.07 H = 704-7) Lab Interpretation Abnormal (test code = 26774-5) [facility] WITH [id number] 07:54:04 Test Item Value Reference Range Interpretation Comments WBC (test code = 9.41 See_Comment [Automated 6690-2) message] The sy stem which generated this result transmitted reference range : 4.30 - 11.10 10*3/?L. The reference range was not used to interpret this result as normal/abnormal . RBC (test code = 4.84 See_Comment [Automated 789-8) message] The sy stem which generated this result transmitted reference range : 3.93 - 5.25 10*6/?L. The reference range was not used to interpret this result as normal/abnormal . HGB (test code = 14.1 g/dL 11.6-15.0 718-7) HCT (test code = 43.1 % 35.7-45.2 4544-3) MCV (test code = 89.0 fL 80.6-95.5 787-2) MCH (test code = 29.1 pg 25.9-32.8 785-6) MCHC (test code = 32.7 g/dL 31.6-35.1 786-4) RDW-SD (test code = 42.5 fL 39.0-49.9 68740-3) RDW-CV (test code = 13.0 % 12.0-15.5 788-0) PLT (test code = 232 See_Comment [Automated 777-3) message] The sy stem which generated this result transmitted reference range : 166 - 358 10*3/ ?L. The reference r desmond was not used to interpret this result as normal/abnormal . MPV (test code = 11.5 fL 9.5-12.9 77283-1) NRBC/100 WBC (test 0.0 See_Comment [Automat ed code = [id number]) message] The system which generated this result transmitted reference range : 0.0 - 10.0 /100 WBCs. The refer ence range was not u sed to interpret th is result as normal/abnormal . NRBC x10^3 (test code See_Comment [Auto mated = [id number]) message] The s ystem which generated this result transmitted reference range : 10*3/?L. The reference range was not used to interpret this result as normal/abnormal . GRAN MAT (NEUT) % 57.6 % (test code = 770-8) IMM GRAN % (test code 0.20 % = 0011493483) LYMPH % (test code = 29.9 % 736-9) MONO % (test code = 8.6 % 5905-5) EOS % (test code = 2.7 % 713-8) BASO % (test code = 1.0 % 706-2) GRAN MAT x10^3(ANC) 5.43 10*3/uL 1.88-7.09 (test code = 0481832608) IMM GRAN x10^3 (test 0.00-0.06 code = 2887057844) LYMPH x10^3 (test code 2.81 10*3/uL 1.32-3.29 = 731-0) MONO x10^3 (test code 0.81 10*3/uL 0.33-0.92 = 742-7) EOS x10^3 (test code = 0.25 10*3/uL 0.03-0.39 711-2) BASO x10^3 (test code 0.09 10*3/uL 0.01-0.07 H = 704-7) Lab Interpretation Abnormal (test code = 82711-5) [facility] [id number] 16:47:00 Test Item Value Reference Range Interpretation Comments POCT PREG (test code = 1605) Negative On board controls acceptable with C Yes Line (test code = 3574) POCT PREG LOT # (test code = 3575) POCT PREG TEST DATE (test code = 3576) [facility] [id number] 16:47:00 Test Item Value Reference Range Interpretation Comments POCT PREG (test code = 1605) Negative On board controls acceptable with C Yes Line (test code = 3574) POCT PREG LOT # (test code = 3575) POCT PREG TEST DATE (test code = 3576) [facility] [id number] 04:35:00 Test Item Value Reference Range Interpretation Comments POCT PREG (test code = 1605) negative On board controls acceptable with present C Line (test code = 3574) POCT PREG LOT # (test code = 3575) [id number] POCT PREG TEST DATE (test 2023-11-25 code = 3576) Lab Interpretation (test code = Normal 65221-0) [facility] Test Item Value Reference Range Interpretation Comments SURGICAL (test code = SR) R UN DATE: 01/17/22 [place] - Lab PAGE 1 RUN TIME: 1221 Specimen Inquiry RUN USER: INTERFACE P ATIENT: KATRIN CHASE LOC: ARIELA U #: [id number] AGE/SX: 16/F ROOM: RE01/06/22[facility]: Facundo Kwon MD : 03 BED: DIS: STATUS: ZAHRA JUSTICE TLOC: SPEC #: [id number] RECD: 01/09/22 STATUS: JORDAN LEAVITT #: [id number] KI: 01/06/22-[address] [facility] [address]: Facundo Kwon MD ENTERED: 01/09/22 SP TYPE: SURGICAL OTHR DR: DOES_NOT KNOW ORDERED: 58275/2, 20018, ANATOMIC SPEC COPIES TO: DOES_NOT KNOW Facundo Kwon MD [address] [place] [address] PROCEDURES: 71380 (01/09/22) 12551 (01/10/22-1630) TISSUES: A. DUODENUM BIOPSY B. STOMACH BIOPSY/POLYP - GASTRIC FINAL DIAGNOSIS A) SMALL BOWEL, DUODENUM, BIOPSIES: -Small-bowel duodenal mucosa with no pathologic alteration. -Negative for villous blunting, increased intraepithelial lymphocytes, viral cytopathicchanges, dysplasia, and malignancy. B) STOMACH, BIOPSY:-Gastric mucosa with no pathologic alteration. -Negative for intestinal metaplasia, dysplasia, and malignancy. -Negative for Helicobacter pylori organisms by Giemsa staining; Giemsa control isappropriate. GROSS DESCRIPTION A). The specimen received in formalin labeled, "duodenum biopsy" consists of 3 irregularpink-ibarra soft tissue fragments measuring up to 0.6 cm in greatest dimension in aggregate. The specimen is entirely submitted in cassette A1 B). The specimen received in formalin labeled, "gastric biopsy" consists of 2 irregularpink-ibarra soft tissue fragments measuring up to 0.6 cm in greatest dimension in aggregate. The specimen is entirely submitted in cassette B1 KK CONTINUED ON NEXT PAGE R UN DATE: 01/17/22 [facility] PAGE 2 RUN TIME: 1221 Specimen Inquiry RUN USER: INTERFACE S PEC #: [id number] PATIENT: KATRIN CHASE #[id number] (Continued) GROSS DESCRIPTION (Continued) Technical component excluding immunohistochemistry is performed at [facility], [address] [place] [address] Technical component of all immunohistochemistry is performed at [employer], [address], [address], [place] [address] Immunohistochemistry: This test was developed and its performance characteristicsdetermined by this laboratory. It has not been approved nor does it need approval by the USFDA. Appropriate positive and negative controls are reviewed and judged to be acceptable.This laboratory is certified under the Clinical Laboratory Improvement Amendments (CLIA-88)as qualified to perform high complexity clinical laboratory testing. Unless gross only, the diagnosis is based upon microscopic examination. MICROSCOPIC DESCRIPTION A/B) Microscopic examination supports the pathologic diagnosis. CLINICAL INFORMATION COLLECTION DATE: 01/06/2022 ABDOMINAL PAINPOST-OP DIAGNOSIS: MILD DUODENITIS --------- Signed SIGNATURE ON FILE Zoraida North 01/17/22 1221 END OF REPORT UR HCG [id number] 12:02:00 Test Item Value Reference Range Interpretation Comments UR HCG QUAL (test NEGATIVE This HCGQL test is NOT code = HCGQLU) applicable fo r MALE patients.Check with nurse about probable order error.If Tumor Marker Test needed, nu rse should order test "HCG TU"(Test #[id number])---- - Notes Date/Time Note Provider Source 2022-01-06 15:10:00-00:00 [facility] ([facility]) Post Anesthesia Evaluation REPORT#:[id number] REPORT STATUS: Signed DATE:01/06/22 TIME: 1510 PATIENT: KATRIN CHASE UNIT #: [id number] ROOM/BED: : 03 AGE: 16 SEX: F ATTEND: Facundo Kwon MD ADM AUTHOR: James Conrad MD * ALL edits or amendments must be made on the el [employer]/computer document * Post Anesthesia Evaluation Anes. changes from pre-op eval ORM Surgeries: Surgery Date and Time: 01/06/2022 1040 Proposed Primary Procedure: ESOPHAGOGASTRODUODE NOSCOPY Anesthetic: TIVA Date: 01/06/22 Level of consciousness: tosin ent awake, able to answer questions, participate in this eval. Vital signs: Last Documented: Result Date Time Pulse Ox 100 01/06 141 B/P 121/73 01/06 141 O2 Delivery Room air 01/06 1413 Temp 36.7 01/06 141 Pulse 87 01/06 141 Resp 16 01/06 141 Cardiovascular: CV system stable, vital signs st able Respiratory/Airway: respiratory system stable, m aintains without support Pain: adequately controlled Hydration: adequate, euvolemic Temp status: greater than 96.8F, normothermic Presence of N/V: no Anesthesia complications: no Other changes requiring f/u: none Conclusions: no apparent anes. issues, outpts ev al prior DC home Electronically Signed by James Conrad MD 01/06/[address] [facility] #:[id number] END OF REPORT 2022-01-06 13:42:00-00:00 [id number] [facility] PATIENT NAME: KATRIN CHASE ADMIT DATE: 01/06/22 ACCOUNT NO: [id number] ROOM NO: AGE: 16 REPORT TYPE: ENDOSCOPY REPORT SEX: F DATE OF : 03 ADMITTING PHYSICIAN: ATTENDING PHYSICIAN:Facundo Kwon MD Patient Name: Katrin Chase Attending MD: Edvin Kwon MD Procedure Date: 01/06/2022 1:42 PM 7 Date of : 01/09 Procedure: Upper GI endoscopy Pre Procedure Diagnosis: Epigastric abdominal pa in, Functional Dyspepsia Assistants: Facundo Kwon MD Anesthesia: Monitored Anesthesia Care Procedure: Pre-Anesthesia Assessment: - Prior to the procedure, a History and Physica l was performed, and patient medications and allergies were reviewed. The patient's toleran ce of previous anesthesia was also reviewed. The risk s and benefits of the procedure and the sedation options and risks were discussed with the patie nt. All questions were answered, and informed conse nt was obtained. Prior Anticoagulants: The patien t has taken no anticoagulant or antiplatelet agents. ASA Grade Assessment: I - A normal, healthy patient . After reviewing the risks and benefits, the reggie tenorio was deemed in satisfactory condition to undergo the procedure. The benefits, risks, and alternatives to the procedure were discussed and informed consent w as obtained from the patient. I've assesed the laura beckford on this date and reviewed the medical history, drug history, and previous anesthesia experience. Af ter obtaining informed consent, the scope was passe d under direct vision. Throughout the procedure, the patient's blood pressure, pulse, and oxygen saturations were monitored continuously.s were monitored continuously. The Endoscope was introduced through the mouth, and advanced to t he second part of duodenum. The upper GI endoscopy was accomplished without difficulty. The patient tolerated the procedure well. Post Procedure Findings: The examined esophagus was normal. The entire examined stomach was normal. Biopsi es were taken with a cold forceps for histology. Patchy mild inflammation characterized by PATIENT NAME: KATRIN CHASE 667 congestion (edema) and erythema was found in th e duodenal bulb. Biopsies were taken with a cold forceps for histology. The second portion of the duodenum was normal. Biopsies were taken with a cold forceps for histology. Complications: No immediate complications. Estimated Blood Loss: Estimated blood loss was m inimal. Post Procedure Diagnosis: - Normal esophagus. - Normal stomach. Biopsied. - Duodenitis. Biopsied. - Normal second portion of the duodenum. Biopsi ed. Recommendation: - [facility]. The signs and symptoms of potentia l delayed complications were discussed with the patient. Return to normal activities tomorrow. Written discharge instructions were provided to the patient. - Discharge patient to home. - Resume previous diet. - Continue present medications. - No aspirin, ibuprofen, naproxen, or other non-steroidal anti-inflammatory drugs. - Await pathology results. - Use Protonix (pantoprazole) 40 mg PO daily. - Return to my office in 2 weeks. Facundo Kwon MD 01/06/2022 1:58:50 PM This report has been signed electronically. Number of Addenda: 0 Note Initiated On: 01/06/2022 1:42 PM Procedure Code(s): --- Professional --- 05301, Esophagogastroduodenoscopy, flexible, transoral; with biopsy, single or multiple Diagnosis Code(s): --- Professional --- K29.80, Duodenitis without bleeding R10.13, Epigastric pain K30, Functional dyspepsia CPT copyright 2020 [employer]. All rights reserved. The codes documented in this report are prelimin arjun and upon law clerk review may be revised to meet current compliance requiremen ts. Scope In: Scope Out: Provation {[id number]}.pdf ProVation FT PDF PATIENT NAME: KATRIN CHASE 667 Electronically Signed by Facundo Kwon MD on 01/06 at 1359 PATIENT NAME: KATRIN CHSAE 667
[2023-02-27] MEDS ORDERED: DIPHENHYDRAMINE 50 MG/ML VIAL ONE (20:39)
[2023-02-27] MEDS ORDERED: MORPHINE 4 MG/ML SYR ONE (20:39)
[2023-02-27 20:40] LABS: Absolute Lymphocytes (CBC) 1.1 K/uL (0.7-4.9); Hematocrit 44.8 % (36.0-45.0); Lymphocytes % 6.9 % (15.3-44.8); MCV 87.9 fL (80-100); MPV 8.9 fL (7.6-11.3)
[2023-02-27] MEDS ORDERED: NA CHLORIDE 0.9% 1,000 ML ONE (20:40)
[2023-02-27] MEDS ORDERED: ONDANSETRON 4 MG/2 ML VIAL ONE (20:40)
[2023-02-27] MEDS ORDERED: FAMOTIDINE 20 MG/2 ML VIAL IV ONE (20:40)
[2023-02-27] MEDS ORDERED: KETOROLAC 30 MG/ML INJ ONE (20:40)
[2023-02-27 20:53] LABS: Specific Gravity > 1.030 (1.005-1.030)
[2023-02-27 20:55] LABS: Albumin 4.4 g/dL (3.4-5.0); Bilirubin Total 0.5 mg/dL (0.2-1.0); Potassium 3.8 mEq/L (3.5-5.1); Protein, Total 9.7 g/dL (6.4-8.2)
[2023-02-27 21:06] LABS: Specific Gravity > 1.030 (1.005-1.030); Urine Bacteria None Seen /HPF (<20); Urine Bilirubin NEGATIVE (Negative); Urine Blood 1+ (Negative); Urine Clarity Extremely Turbid (Clear); Urine Color Yellow (Yellow); Urine Glucose NEGATIVE (Negative); Urine Mucus 4+ /HPF (None Seen); Urine Protein 1+ (Negative); Urine Urobilinogen 1+ (Normal)
[2023-02-27 22:13] LABS: Barbiturates NEGATIVE (NEGATIVE); Benzodiazepines NEGATIVE (NEGATIVE); Cocaine NEGATIVE (NEGATIVE); METHAMPHETAM NEGATIVE (NEGATIVE); Methadone NEGATIVE (NEGATIVE); Opiates NEGATIVE (NEGATIVE); Phencyclidine NEGATIVE (NEGATIVE); THC Cannibis POSITIVE (NEGATIVE)
--- NOTE | 2023-02-27 22:17 | RAD REPORT ---
EXAM DESCRIPTION: CT - Abdomen Pelvis W Contrast - 02/27/2023 9:52 pm CLINICAL HISTORY: ABD PAIN COMPARISON: No comparisons TECHNIQUE: Thin cut axial CT imaging of the abdomen and pelvis was performed following intravenous a dministration of 100 mL Isovue 300. Multiplanar reformats were generated and reviewed. All CT scans are performed using dose optimization technique as appropriate and may include automated exposure control or mA/KV adjustment according to patient size. FINDINGS: No suspicious findings in the lung bases. The liver, spleen, and pancreas show no suspicious findings. Gallbladder and biliary tree are also wi thout suspicious finding. Symmetric renal function is seen with no hydronephrosis or suspicious renal mass. No dilated bowel loops or bowel wall thickening. Appendix is not discretely identified. No free air, free fluid or inflammatory stranding. No hernia, mass or bulky lymphadenopathy. The urinary bladder i s suboptimally distended limiting evaluation. Bilateral small ovarian cysts. No suspicious bony findings. IMPRESSION: No acute intra-abdominal process.
--- NOTE | 2023-02-27 22:36 | ER ---
Nurse's Notes [facility] Name: Lizzie Chase Age: 18 yrs Sex: Female : 2005 Arrival Date: 02/27/2023 Time: 20:08 Bed 4 Private MD: Bolivar Cisse W Diagnosis: Lower abdominal pain, unspecified;Acute tension headache, emotional upset, anxiety reaction secondary to stress Presentation: 02/27 20:18 Chief complaint: Patient states: Headache for a week, abdominal pain/nausea/vomiting nj1 since yesterday. Unable to keep anything down. Coronavirus screen: Vaccine status: Patient reports being unvaccinated. Ebola Screen: Patient denies travel to an Ebola-affected area in the 21 days before illness onset. Initial Sepsis Screen: Does the patient meet any 2 criteria? HR > 90 bpm. No. Patient's initial sepsis screen is negative. Does the patient have a suspected source of infection? No. Patient's initial sepsis screen is negative. Risk Assessment: Do you want to hurt yourself or someone else? Patient reports no desire to harm self or others. Onset of symptoms was February 26, 2023. 20:18 Method Of Arrival: Ambulatory [facility] 20:18 Acuity: NACHO 3 nj1 Historical: - Allergies: 20:17 No Known Allergies; nj1 - PSHx: 20:18 Knee surgery, left; nj1 - Immunization history:: Client reports having NOT received the Covid vaccine. - Social history:: Smoking status: Reported history of juuling and/or vaping. - Family history:: not pertinent. - Hospitalizations: : No recent hospitalization is reported. Screenin:49 [facility] ED Fall Risk Assessment (Adult) History of falling in the last 3 months, mb9 including since admission No falls in past 3 months (0 pts) Confusion or Disorientation No (0 pts) Intoxicated or Sedated No (0 pts) Impaired Gait No (0 pts) Mobility Assist Device Used No (0 pt) Altered Elimination No (0 pt) Score/Fall Risk Level 0 - 2 = Low Risk Oriented to surroundings, Maintained a safe environment, Educated pt \T\ family on fall prevention, incl call for assistance when getting out of bed. Abuse screen: Denies threats or abuse. Nutritional screening: No deficits noted. Tuberculosis screening: No symptoms or risk factors identified. Assessment: 20:33 General: Appears uncomfortable, Behavior is crying. Pain: Complains of pain in abdomen mb9 Pain does not radiate. Pain currently is 10 out of 10 on a pain scale. Quality of pain is described as throbbing. Neuro: [place] Agitation-Sedation Scale (RASS): 0 - Alert and Calm Level of Consciousness is awake, alert, obeys commands, Oriented to person, place, time, situation, Appropriate for age. Cardiovascular: Patient's skin is warm and dry. Respiratory: Airway is patent Respiratory effort is even, unlabored, Respiratory pattern is regular, symmetrical. GI: Abdomen is round non-distended, Bowel sounds present X 4 quads. Abd is soft Abdomen is tender to palpation in epigastric area and umbilical area Reports nausea, vomiting, Patient currently denies diarrhea. Derm: Skin is pink, warm \T\ dry. Musculoskeletal: Range of motion: intact in all extremities. 21:43 Reassessment: Patient and/or family updated on plan of care and expected duration. Pain mb9 level reassessed. Patient is alert, oriented x 3, equal unlabored respirations, skin warm/dry/pink. Patient states feeling better. Patient states symptoms have improved. 22:52 Reassessment: Patient appears in no apparent distress at this time. Patient and/or jb4 family updated on plan of care and expected duration. Pain level reassessed. Patient is alert, oriented x 3, equal unlabored respirations, skin warm/dry/pink. Vital Signs: 20:18 BP 121 / 90; Pulse 92; Resp 18; Temp 98.3; Pulse Ox 100% ; Weight 74.39 kg; Height 5 nj1 ft. 0 in. ; Pain 10/10; 21:42 BP 110 / 60; Pulse 74; Resp 16; Pulse Ox 100% on R/A; mb9 20:18 Body Mass Index 32.03 (74.39 kg, 152.4 cm) nj1 20:18 Pain Scale: Adult nj1 [place] Coma Score: 22:32 Eye Response: spontaneous(4). Motor Response: obeys commands(6). Verbal Response: sp4 oriented(5). Total: 15. ED Course: 20:10 Patient arrived in ED. im 20:10 Bolivar Cisse MD is Private Physician. im 20:10 Maged Hernandez MD is Attending Physician. sp4 20:21 Triage completed. nj1 20:21 Arm band placed on left wrist. nj1 20:28 Amarilys Gallo RN is Primary Nurse. mb9 20:33 Placed in gown. Bed in low position. Call light in reach. Side rails up X 1. Client mb9 placed on continuous cardiac and pulse oximetry monitoring. NIBP monitoring applied. 20:33 Inserted saline lock: 20 gauge in right antecubital area, using aseptic technique. ah1 Blood collected. 20:33 CBC with Diff Sent. ah1 20:33 CMP Sent. ah1 20:33 Lipase Sent. ah1 20:34 No provider procedures requiring assistance completed. mb9 20:48 Radiology exam delayed due to test not completed at this time. IV insertion jg10 attempt and/or patient not having appropriate IV at this time. 20:48 Urine Drug Screen Sent. mb9 20:48 Urinalysis W/Microscopic Sent. mb9 20:48 Test, Urine Sent. mb9 21:53 CT Abd/Pelvis - IV Contrast Only In Process Unspecified. EDMS 22:52 IV discontinued, intact, bleeding controlled, No redness/swelling at site. Pressure jb4 dressing applied. Administered Medications: 20:32 Drug: NS 0.9% IV 1000 ml Route: IV; Rate: 1 bolus; Site: right antecubital; mb9 20:32 Drug: Ondansetron IVP 4 mg Route: IVP; Site: right antecubital; mb9 21:04 Follow up: Response: No adverse reaction mb9 20:36 Drug: morphine IVP or IV 4 mg Route: IVP; Infused Over: 4 mins; Site: right antecubital;mb9 21:04 Follow up: Response: No adverse reaction mb9 20:38 Drug: Famotidine IVP 20 mg Route: IVP; Site: right antecubital; mb9 21:05 Follow up: Response: No adverse reaction mb9 20:40 Drug: Ketorolac IVP 30 mg Route: IVP; Site: right antecubital; mb9 21:05 Follow up: Response: No adverse reaction mb9 20:49 Drug: diphenhydrAMINE IVP 25 mg Route: IVP; Site: right antecubital; mb9 21:05 Follow up: Response: No adverse reaction mb9 Medication: 20:34 VIS not applicable for this client. mb9 Outcome: 22:35 Discharge ordered by . sp4 22:52 Discharged to home ambulatory. jb4 22:52 Condition: stable 22:52 Discharge instructions given to patient, Instructed on discharge instructions, follow up and referral plans. medication usage, Demonstrated understanding of instructions, follow-up care, medications, Prescriptions given X 2. 22:52 Patient left the ED. jb4 Signatures: Dispatcher [employer] EDMS Catracho Martínez, RN RN jb4 [facility] Amarilys Gallo RN RN mb9 Maged Hernandez MD MD sp4 Donna Cortez RN RN nj1 Dennis Hogan [facility] Mariah Napier Corrections: (The following items were deleted from the chart) 20:18 20:17 PSHx: None; nj1 nj1 20:21 20:18 Pulse 92bpm; Resp 18bpm; Pulse Ox 100%; Temp 98.3F; 74.39 kg; Height 5 ft. 0 in.; nj1 BMI: 32.0; Pain 10/, Adult; nj1
--- NOTE | 2023-02-27 22:36 | EDPHYS ---
Physician Documentation [facility] Name: Lizzie Chase Age: 18 yrs Sex: Female : 2005 Arrival Date: 02/27/2023 Time: 20:08 Bed 4 Private MD: Bolivar Cisse W ED Physician Maged Hernandez HPI: 02/27 20:10 This 18 yrs old Female presents to ER via Unassigned with complaints of sp4 Abdominal Pain, Headache, Nausea/Vomiting. 20:20 18-year-old female with no significant past medical history presents with a cute onset sp4 of headache and abdominal pain starting yesterday associated with nausea and vomiting. Headache is global, abdominal pain is diffuse. Patient on initial assessment is emotionally upset crying tearful. Patient has history of abdominal issues that were previously assessed at [facility] without any specific diagnosis. . Historical: - Allergies: 20:17 No Known Allergies; nj1 - PSHx: 20:18 Knee surgery, left; nj1 - Immunization history:: Client reports having NOT received the Covid vaccine. - Social history:: Smoking status: Reported history of juuling and/or vaping. - Family history:: not pertinent. - Hospitalizations: : No recent hospitalization is reported. ROS: 20:20 Constitutional: Negative for fever, chills, and weight loss, Eyes: Negative for injury, sp4 pain, redness, and discharge, ENT: Negative for injury, pain, and discharge, Neck: Negative for injury, pain, and swelling, Cardiovascular: Negative for chest pain, palpitations, and edema, Respiratory: Negative for shortness of breath, cough, wheezing, and pleuritic chest pain, Abdomen/GI: Positive for abdominal pain, nausea, vomiting, negative for diarrhea or constipation. Back: Negative for injury and pain, : Negative for injury, bleeding, discharge, and swelling, MS/Extremity: Negative for injury and deformity, Skin: Negative for injury, rash, and discoloration, Neuro: Negative for headache, weakness, numbness, tingling, and seizure, Psych: Negative for depression, anxiety, Allergy/Immunology: Negative for hives, rash, and allergies Endocrine: Negative for neck swelling, polydipsia, polyuria, polyphagia, and weight changes Hematologic/Lymphatic: Negative for swollen nodes, abnormal bleeding, and unusual bruising Exam: 20:20 Constitutional: This is a well developed, well nourished patient who is awake, alert, sp4 emotional upset on exam, tearful and anxious Head/Face: Normocephalic, atraumatic. Eyes: Pupils equal round and reactive to light, extra-ocular motions intact. Lids and lashes normal. Conjunctiva and sclera are not injected. Cornea within normal limits. Periorbital areas with no swelling, redness, or edema. ENT: Nares patent. No nasal discharge, no septal abnormalities noted. Tympanic membranes are normal and external auditory canals are clear. Oropharynx with no redness, swelling, or masses, exudates, or evidence of obstruction, uvula midline. Mucous membranes moist. Neck: Trachea midline, no thyromegaly or masses palpated, and no cervical lymphadenopathy. Supple, full range of motion without nuchal rigidity, or vertebral point tenderness. Chest/axilla: Normal chest wall appearance and motion. Nontender with no deformity. No lesions are appreciated. Cardiovascular: Regular rate and rhythm with a normal S1 and S2. No gallops, murmurs, or rubs. Normal PMI, no JVD. No pulse deficits. Respiratory: Lungs have equal breath sounds bilaterally, clear to auscultation and percussion. No rales, rhonchi or wheezes noted. No increased work of breathing, no retractions or nasal flaring. Abdomen/GI: Soft, there is diffuse abdominal discomfort to palpation, no rebound, no rigidity, no distention, no discoloration, normal active bowel sounds Back: No spinal tenderness. No costovertebral tenderness. Skin: Warm, dry with normal turgor. Normal color with no rashes, no lesions, and no evidence of cellulitis. MS/ Extremity: Pulses equal, no cyanosis. Neurovascular intact. Full, normal range of motion. Neuro: Awake and alert, GCS 15, oriented to person, place, time, and situation. Cranial nerves II-XII grossly intact. Motor strength 5/5 in all extremities. Sensory grossly intact. Psych: Awake, alert, with orientation to person, place and time. Behavior, mood, and affect are within normal limits Vital Signs: 20:18 BP 121 / 90; Pulse 92; Resp 18; Temp 98.3; Pulse Ox 100% ; Weight 74.39 kg; Height 5 nj1 ft. 0 in. ; Pain 10/10; 21:42 BP 110 / 60; Pulse 74; Resp 16; Pulse Ox 100% on R/A; mb9 20:18 Body Mass Index 32.03 (74.39 kg, 152.4 cm) nj1 20:18 Pain Scale: Adult nj1 Monroe Coma Score: 22:32 Eye Response: spontaneous(4). Motor Response: obeys commands(6). Verbal Response: sp4 oriented(5). Total: 15. MDM: 20:13 Patient medically screened. sp4 22:32 Differential diagnosis: migraine, sinusitis, vasomotor headache, Stress related sp4 headache. Data reviewed: vital signs, nurses notes, old medical records, lab test result(s), CBC, electrolytes, hepatic panel, urinalysis, urine drug screen, radiologic studies, CT scan. Consideration of Admission/Observation Escalation of care including admission/observation considered. ED course: Work-up suggests hematuria secondary to menstrual period, CT abdomen pelvis is unremarkable. Labs are consistent with moderate to severe emotional upset with leukocytosis secondary to demargination. Patient did admit that she was very emotionally upset about argument at home. This time patient is stable for discharge home with as needed ondansetron and ibuprofen as needed for symptoms. . 02/27 20:13 Order name: Test, Urine; Complete Time: 21:49 sp4 02/27 20:13 Order name: Urinalysis W/Microscopic; Complete Time: 21:49 sp4 02/27 20:18 Order name: Urine Drug Screen; Complete Time: 22:25 sp4 02/27 20:19 Order name: CBC with Diff; Complete Time: 21:49 sp4 02/27 20:19 Order name: CMP; Complete Time: 21:49 sp4 02/27 20:19 Order name: Lipase; Complete Time: 21:49 sp4 02/27 20:19 Order name: CT Abd/Pelvis - IV Contrast Only; Complete Time: 22:25 sp4 02/27 20:19 Order name: IV Saline Lock; Complete Time: 20:33 sp4 02/27 20:19 Order name: Labs collected and sent; Complete Time: 20:33 sp4 Administered Medications: 20:32 Drug: NS 0.9% IV 1000 ml Route: IV; Rate: 1 bolus; Site: right antecubital; mb9 20:32 Drug: Ondansetron IVP 4 mg Route: IVP; Site: right antecubital; mb9 21:04 Follow up: Response: No adverse reaction mb9 20:36 Drug: morphine IVP or IV 4 mg Route: IVP; Infused Over: 4 mins; Site: right antecubital;mb9 21:04 Follow up: Response: No adverse reaction mb9 20:38 Drug: Famotidine IVP 20 mg Route: IVP; Site: right antecubital; mb9 21:05 Follow up: Response: No adverse reaction mb9 20:40 Drug: Ketorolac IVP 30 mg Route: IVP; Site: right antecubital; mb9 21:05 Follow up: Response: No adverse reaction mb9 20:49 Drug: diphenhydrAMINE IVP 25 mg Route: IVP; Site: right antecubital; mb9 21:05 Follow up: Response: No adverse reaction mb9 Disposition Summary: 02/27/23 22:35 Discharge Ordered Location: Home sp4 Problem: new sp4 Symptoms: have improved sp4 Condition: Stable sp4 Diagnosis - Lower abdominal pain, unspecified sp4 - Acute tension headache, emotional upset, anxiety reaction secondary to stress sp4 Followup: sp4 - With: Private Physician - When: 1 week - Reason: Recheck today's complaints Discharge Instructions: - Discharge Summary Sheet sp4 - Abdominal Pain, Adult, [id number] sp4 Forms: - [email or web address] sp4 Prescriptions: - ondansetron 4 mg Oral Tablet,disintegrating - take 1 tablet by ORAL route every 6 hours PRN anxiety; 30 tablet; Refills: 0, sp4 Product Selection Permitted - Ibuprofen 600 mg Oral Tablet - take 1 tablet by ORAL route every 6 hours As needed take with food; 30 tablet; sp4 Refills: 0, Product Selection Permitted Signatures: [facility] Am[facility]il[facility] Houston RN RN mb9 Maged Hernandez MD MD sp4 Donna Cortez RN RN nj1 Corrections: (The following items were deleted from the chart) 20:18 20:17 PSHx: None; nj1 nj1
[2023-02-27 23:06] VITALS: TEMP 98.3; O2SAT 100
[2023-02-27 23:09] VITALS: BP 110/60
== END 2023-02-27 22:52 | disposition home or self-care (01) ==
LOC: ER 20:08
DX: R10.30 Lower abdominal pain, unspecified (principal); G44.209 Tension-type headache, unspecified, not intractable; F41.1 Generalized anxiety disorder; F43.0 Acute stress reaction
CPT/HCPCS: 85025; 81001; 36415; 81025; 83690; 80053; 80307; 74177; 96375; 96374; 99284; J1200; J2405; J7030

== ENCOUNTER 2023-12-28 01:00 | Emergency (ER) | payer OTHER, SELFPAY ==
--- OUTSIDE RECORDS SUMMARY | 2023-12-28 01:06 | XMS REPORT | Continuity of Care Document ---
Author Name Unknown Address [address] [facility]. 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 Name Role Phone LIDIA PHELAN Primary Care Physician Vannesa vailaLES Trammell Attending Clinician UnavailALAN Wang Attending Clinician Unavailable GERARD NOBLES Attending Clinician Unavailable Gerard Suazo Attending Clinician [phone] CATRACHITA NGUYEN Attending Clinician Unavail able Doctor Unassigned, [place] Attending Clinician U ROBERTO Alegria Attending Clinician Unavailable Roberto Griffith MD Attending Clinician [phone] Sandi Cardozo NP Attending Clinician [phone] VIANEY GARCIA Attending Clinician Unavailable FAROOQ DAVIS Attending Clinician Unavailable Farooq Barnett Attending Clinician [phone] Unknown, Attending Attending Clinician Unavailab JOYCE Kumar Attending Clinician Unavaila Joyce Hinds CNM Attending Clinician WENDY JANE Attending Clinician Unavaila WENDY Fowler Attending Clinician Unavaila ALEXIS Monae S Attending Clinician Unavailable Andres PAC, Alexis S Attending Clinician [phone] ANNABELLE JO Attending Clinician Unavailable BANDAR CASTILLO Attending Clinician Unavailable Bandar Castillo MD Attending Clinician [phone] Facundo Kwon Attending Clinician Unavailable Jacques DORAN, Mayra Tony Attending Clinician [phone] MAYRA SAAVEDRA Attending Clinician Unavailab RENETTA Lam S Attending Clinician Unavailable Renetta Clark S Attending Clinician [phone] , [facility] Attending Clinician Unavailable Annabelle Jo PA-C Attending Clinician [phone] Nurse, [facility] Attending Clinician Un available Vianey Garcia MD Attending Clinician [phone] Samanta Petty MD Attending Clinician [phone] Teri RN, Lucrecia M Attending Clinician Unavailable Belinda Hall DO Attending Clinician [phone] Les Huggins MD Attending Clinician [phone] Lab, [facility] Fam Pob I Attending Clinician Unavailab Page Gorman Attending Clinician [phone] PAGE RED Attending Clinician Unavailable PANKAJ REESE Attending Clinician UnavailMariaa Mccormack NP Attending Clinician [phone] MARIAA RAE Attending Clinician Unavailable LES HUGGINS Admitting Clinician UnavailSANDI Vaughan Admitting Clinician Unavailable KNOW, DOES_NOT Admitting Clinician Unavailable Les Huggins MD Admitting Clinician [phone] BELINDA HALL Admitting Clinician Unavailab niko Payers Payer Name Policy Type Policy Number Effective Date Expirati on Date Source [facility] [id number] 00:00:00 [facility] SHAYLA PANIAGUA COPAY FOCUS 9 [id number] 2023 00:00:00 [employer] [id number] 2023 00:00:00 Problems Condition Name Condition Details Condition Category Status Onset Date Resolution Date Last Treatment Date Treating Clinician Comments Source Obesity (BMI 30-39.9) Obesity (BMI 30-39.9) Disease Active 12-30 00:00: 00 [facility] Encounter for other general counseling or advice on contracept ion Encounter for other general counseling or advice on contracept ion Disease Active 12-29 00:00: 00 [facility] BMI 29.0-29.9, adult BMI 29.0-29.9, adult Disease Active 12-29 00:00: 00 [facility] BMI 29.0-29.9, adult BMI 29.0-29.9, adult Disease Active 12-29 00:00: 00 [facility] Menorrhagi a with irregular cycle Menorrhagi a with irregular cycle Disease Active 11-09 00:00: 00 [facility] Vitamin D deficiency Vitamin D deficiency Disease Active 11-09 00:00: 00 [facility] Depo-Prove ra contracept kamran status Depo-Prove ra contracept kamran status Disease Active 11-09 00:00: 00 [facility] Acute medial meniscus tear, left, subsequent encounter Acute medial meniscus tear, left, subsequent encounter Disease Active -22 00:00: 00 Overview: Formattin g of this note might be different from the original. Added automatic ally from request for surgery [id number] [facility] Allergies, Adverse Reactions, Alerts Allergy Name Allergy Type Status Severity Reaction(s) Onset Date Inactive Date Treating Clinician Comments Source No Known Allergie s DA Active U 01-06 00:00: 00 [facility] NO KNOWN ALLERGIE S Drug Class Active [facility] Social History Social Habit Start Date Stop Date Quantity Comments Source Gender identity [facility] SDOH Alcohol Comment [place] [facility] Alcohol intake 2023-10-26 00:00:00 2023-10-26 00:00:00 Lifetime non-drinker (finding) [facility] Exposure to SARS-CoV-2 (event) 2022-12-26 00:00:00 2023-01-05 08:00:00 Not sure [facility] Tobacco use and exposure 2022-12-27 00:00:00 2022-12-27 00:00:00 Smokeless tobacco non-user [facility] History of Social function 2022-12-27 00:00:00 2022-12-27 00:00:00 [facility] History SDOH Alcohol Frequency 2020-04-05 00:00:00 2020-04-05 00:00:00 1 [facility] History SDOH Alcohol Std Drinks 2020-04-05 00:00:00 2020-04-05 00:00:00 99 [facility] History SDOH Alcohol Binge 2020-04-05 00:00:00 2020-04-05 00:00:00 1 [facility] Sex Assigned At 2005 00:00:00 2005 00:00:00 [facility] Smoking Status Start Date Stop Date Source Never smoked tobacco [facility] Medications Ordered Medication Name Filled Medication Name Start Date Stop Date Current Medication? Ordering Clinician Indication Dosage Frequency Signature (SIG) Comments Components Source ketorolac (TORADOL) injection 30 mg 10-26 06:00: 00 10-26 05:23 :00 No 30mg 30 mg, Slow IV Push, ONCE, 1 dose, On Sun10/27/23 at 0000, Routine [facility] cefTRIAXone (ROCEPHIN) 1,000 mg in NaCl 0.9% (NS) 100 mL MINI-BAG 10-26 05:15: 00 10-26 05:52 :00 No 1000mg 1,000 mg, IV Piggyback, ONCE, 1 dose, On Sun10/26/23 at 2315, Administer over 30 Minutes, 100 mL
Reas on for Anti-Infec tive: Documented Infection< br>Documen christiano Infection Site: Urine
D uration of Therapy: Other (see Comments) [facility] cefdinir 300 mg capsule 10-25 00:00: 11-02 05:59 :00 Yes [id number] 300mg Take 1 capsule by mouth in the morning and 1 capsule in the evening. Do all this for 7 days. [facility] methylPREDN ISolone 4 mg tablets 09-20 00:00: 00 Yes [id number] Take by mouth SEE-INSTRU CTIONS. follow package directions [facility] amoxicillin -clavulanat e 875-125 mg per tablet 09-20 00:00: 00 Yes [id number] 1{tbl} Take 1 tablet by mouth every 12 (twelve) hours. [facility] iopamidol (ISOVUE 370-500 mL) injection 100 mL 2022-08 03:30: 00 07-17 03:30 :00 No [id number] 100mL 100 mL, Intravenou s, ONCE, 1 dose, On Sun07/16/23 at 2130, Routine [facility] methylPREDN ISolone 4 mg tablets 2022-08 00:00: 00 09-20 00:00 :00 No [id number] Take by mouth SEE-INSTRU CTIONS. follow package directions [facility] clindamycin 300 mg capsule 2022-08 00:00: 00 07-27 05:59 :00 No [id number] 300mg Take 1 capsule by mouth 4 (four) times daily for 10 days. [facility] cefdinir 300 mg capsule 05-17 00:00: 00 05-28 04:59 :00 No [id number] 600mg Take 2 capsules by mouth in the morning for 10 days. [facility] acetaminoph en (TYLENOL) tablet 650 mg 01-05 13:15: 00 01-05 13:14 :00 No 650mg 650 mg, Oral, ONCE, 1 dose, On Sun01/05/23 at 0815, ALLI [facility] amoxicillin 500 mg capsule 01-05 00:00: 00 Yes [id number] 500mg Take 1 capsule by mouth in the morning and 1 capsule at noon and 1 capsule in the evening. [facility] ondansetron 4 mg disintegrat ing tablet 01-05 00:00: 00 Yes [id number] 4mg Take 1 tablet by mouth every 4 (four) hours as needed for Nausea and Vomiting (N/V). [facility] naproxen 500 mg tablet 01-05 00:00: 00 01-16 04:59 :00 No [id number] 500mg Take 1 tablet by mouth in the morning and 1 tablet in the evening. Take with meals. Do all this for 10 days. [facility] norethindro ne-e.estrad ioL-iron (MICROGESTI N FE) 1.5 mg-30 mcg (21)/75 mg (7) per tablet 12-27 00:00: 00 Yes [id number] 1{tbl} Take 1 tablet by mouth in the morning. [facility] naproxen (NAPROSYN) 500 mg tablet 09-27 00:00: 00 12-27 00:00 :00 No [id number] 500mg Take 1 tablet by mouth in the morning and 1 tablet in the evening. Take with meals. [facility] ibuprofen (IBU) tablet 800 mg 09-25 04:30: 00 09-25 04:33 :00 No 800mg 800 mg, Oral, ONCE, 1 dose, On 09/24/22 at 2230, ALLI [facility] No known medications 12-29 16:08: 37 No [facility] pantoprazol e 40 mg EC tablet 4-11 00:00: 00 12-29 00:00 :00 No 40mg Take 40 mg by mouth daily. [facility] metroNIDAZO LE 500 mg tablet - 00:00: 00 12-29 00:00 :00 No [id number] 500mg Take 1 tablet by mouth every 12 (twelve) hours. [facility] ergocalcife rol, vitamin d2, 1,250 mcg (50,000 unit) capsule 1-15 00:00: 00 12-29 00:00 :00 No [id number] 53520F Take 1 capsule by mouth weekly. [facility] ranitidine (ZANTAC) 150 mg tablet 10-07 00:00: 00 12-29 00:00 :00 No 150mg Take 1 tablet by mouth 2 (two) times daily. Follow up with your MD for further evaluation and treatment. [facility] Immunizations Ordered Immunization Name Filled Immunization Name Date Status Comments Source [facility] 2022-12-27 00:00:00 Completed [place] [id number] 2022-12-27 00:00:00 Completed [place] [id number] 2022-12-27 00:00:00 Completed [place] [id number] 2022-12-27 00:00:00 Completed [facility] Meningococcal Polysaccharide (groups A, C, Y and W-135) conjugate vaccine (MCV4P) 2020-03-30 00:00:00 Completed [facility] Meningococcal Polysaccharide (groups A, C, Y and W-135) conjugate vaccine (MCV4P) 2020-03-30 00:00:00 Completed [facility] Meningococcal Polysaccharide (groups A, C, Y and W-135) conjugate vaccine (MCV4P) 2020-03-30 00:00:00 Completed [facility] Meningococcal Polysaccharide (groups A, C, Y and W-135) conjugate vaccine (MCV4P) 2020-03-30 00:00:00 Completed [facility] HPV9 2016-04-17 00:00:00 Completed [facility] Meningococcal Polysaccharide (groups A, C, Y and W-135) conjugate vaccine (MCV4P) 2016-04-17 00:00:00 Completed [facility] TDAP 2016-04-17 00:00:00 Completed [facility] HPV9 2016-04-17 00:00:00 Completed [facility] Meningococcal Polysaccharide (groups A, C, Y and W-135) conjugate vaccine (MCV4P) 2016-04-17 00:00:00 Completed [facility] TDAP 2016-04-17 00:00:00 Completed [facility] HPV9 2016-04-17 00:00:00 Completed [facility] Meningococcal Polysaccharide (groups A, C, Y and W-135) conjugate vaccine (MCV4P) 2016-04-17 00:00:00 Completed [facility] TDAP 2016-04-17 00:00:00 Completed [facility] HPV9 2016-04-17 00:00:00 Completed [facility] Meningococcal Polysaccharide (groups A, C, Y and W-135) conjugate vaccine (MCV4P) 2016-04-17 00:00:00 Completed [facility] TDAP 2016-04-17 00:00:00 Completed [facility] HEPATITIS A 2009-06-30 00:00:00 Completed [facility] Varicella (varivax)(chicken pox) 2009-06-30 00:00:00 Completed [facility] HEPATITIS A 2009-06-30 00:00:00 Completed [facility] Varicella (varivax)(chicken pox) 2009-06-30 00:00:00 Completed [facility] HEPATITIS A 2009-06-30 00:00:00 Completed [facility] Varicella (varivax)(chicken pox) 2009-06-30 00:00:00 Completed [facility] HEPATITIS A 2009-06-30 00:00:00 Completed [facility] Varicella (varivax)(chicken pox) 2009-06-30 00:00:00 Completed [facility] DTaP, Unspecified Formulation 2007-06-10 00:00:00 Completed [facility] HEPATITIS A 2007-06-10 00:00:00 Completed [facility] Hib-HbOC 2007-06-10 00:00:00 Completed [facility] MMR 2007-06-10 00:00:00 Completed [facility] Pneumococcal 7 Conjugate, PCV7 (Prevnar7) 2007-06-10 00:00:00 Completed [facility] IPV 2007-06-10 00:00:00 Completed [facility] DTaP, Unspecified Formulation 2007-06-10 00:00:00 Completed [facility] HEPATITIS A 2007-06-10 00:00:00 Completed [facility] Hib-HbOC 2007-06-10 00:00:00 Completed [facility] MMR 2007-06-10 00:00:00 Completed [facility] Pneumococcal 7 Conjugate, PCV7 (Prevnar7) 2007-06-10 00:00:00 Completed [facility] IPV 2007-06-10 00:00:00 Completed [facility] DTaP, Unspecified Formulation 2007-06-10 00:00:00 Completed [facility] HEPATITIS A 2007-06-10 00:00:00 Completed [facility] Hib-HbOC 2007-06-10 00:00:00 Completed [facility] MMR 2007-06-10 00:00:00 Completed [facility] Pneumococcal 7 Conjugate, PCV7 (Prevnar7) 2007-06-10 00:00:00 Completed [facility] IPV 2007-06-10 00:00:00 Completed [facility] DTaP, Unspecified Formulation 2007-06-10 00:00:00 Completed [facility] HEPATITIS A 2007-06-10 00:00:00 Completed [facility] Hib-HbOC 2007-06-10 00:00:00 Completed [facility] MMR 2007-06-10 00:00:00 Completed [facility] Pneumococcal 7 Conjugate, PCV7 (Prevnar7) 2007-06-10 00:00:00 Completed [facility] IPV 2007-06-10 00:00:00 Completed [facility] DTaP, Unspecified Formulation 2004-03-30 00:00:00 Completed [facility] HIB 4 Dose Schedule 2004-03-30 00:00:00 Completed [facility] MMR 2004-03-30 00:00:00 Completed [facility] IPV 2004-03-30 00:00:00 Completed [facility] Varicella (varivax)(chicken pox) 2004-03-30 00:00:00 Completed [facility] DTaP, Unspecified Formulation 2004-03-30 00:00:00 Completed [facility] HIB 4 Dose Schedule 2004-03-30 00:00:00 Completed [facility] MMR 2004-03-30 00:00:00 Completed [facility] IPV 2004-03-30 00:00:00 Completed [facility] Varicella (varivax)(chicken pox) 2004-03-30 00:00:00 Completed [facility] DTaP, Unspecified Formulation 2004-03-30 00:00:00 Completed [facility] HIB 4 Dose Schedule 2004-03-30 00:00:00 Completed [facility] MMR 2004-03-30 00:00:00 Completed [facility] IPV 2004-03-30 00:00:00 Completed [facility] Varicella (varivax)(chicken pox) 2004-03-30 00:00:00 Completed [facility] DTaP, Unspecified Formulation 2004-03-30 00:00:00 Completed [facility] HIB 4 Dose Schedule 2004-03-30 00:00:00 Completed [facility] MMR 2004-03-30 00:00:00 Completed [facility] IPV 2004-03-30 00:00:00 Completed [facility] Varicella (varivax)(chicken pox) 2004-03-30 00:00:00 Completed [facility] DTaP, Unspecified Formulation 2003 00:00:00 Completed [facility] Hep B, Adol or Pedi Dosage 2003 00:00:00 Completed [facility] HIB 4 Dose Schedule 2003 00:00:00 Completed [facility] Pneumococcal 7 Conjugate, PCV7 (Prevnar7) 2003 00:00:00 Completed [facility] IPV 2003 00:00:00 Completed [facility] DTaP, Unspecified Formulation 2003 00:00:00 Completed [facility] Hep B, Adol or Pedi Dosage 2003 00:00:00 Completed [facility] HIB 4 Dose Schedule 2003 00:00:00 Completed [facility] Pneumococcal 7 Conjugate, PCV7 (Prevnar7) 2003 00:00:00 Completed [facility] IPV 2003 00:00:00 Completed [facility] DTaP, Unspecified Formulation 2003 00:00:00 Completed [facility] Hep B, Adol or Pedi Dosage 2003 00:00:00 Completed [facility] HIB 4 Dose Schedule 2003 00:00:00 Completed [facility] Pneumococcal 7 Conjugate, PCV7 (Prevnar7) 2003 00:00:00 Completed [facility] IPV 2003 00:00:00 Completed [facility] DTaP, Unspecified Formulation 2003 00:00:00 Completed [facility] Hep B, Adol or Pedi Dosage 2003 00:00:00 Completed [facility] HIB 4 Dose Schedule 2003 00:00:00 Completed [facility] Pneumococcal 7 Conjugate, PCV7 (Prevnar7) 2003 00:00:00 Completed [facility] IPV 2003 00:00:00 Completed [facility] DTaP, Unspecified Formulation 2003 00:00:00 Completed [facility] Hep B, Adol or Pedi Dosage 2003 00:00:00 Completed [facility] HIB 4 Dose Schedule 2003 00:00:00 Completed [facility] Pneumococcal 7 Conjugate, PCV7 (Prevnar7) 2003 00:00:00 Completed [facility] IPV 2003 00:00:00 Completed [facility] DTaP, Unspecified Formulation 2003 00:00:00 Completed [facility] Hep B, Adol or Pedi Dosage 2003 00:00:00 Completed [facility] HIB 4 Dose Schedule 2003 00:00:00 Completed [facility] Pneumococcal 7 Conjugate, PCV7 (Prevnar7) 2003 00:00:00 Completed [facility] IPV 2003 00:00:00 Completed [facility] DTaP, Unspecified Formulation 2003 00:00:00 Completed [facility] Hep B, Adol or Pedi Dosage 2003 00:00:00 Completed [facility] HIB 4 Dose Schedule 2003 00:00:00 Completed [facility] Pneumococcal 7 Conjugate, PCV7 (Prevnar7) 2003 00:00:00 Completed [facility] IPV 2003 00:00:00 Completed [facility] DTaP, Unspecified Formulation 2003 00:00:00 Completed [facility] Hep B, Adol or Pedi Dosage 2003 00:00:00 Completed [facility] HIB 4 Dose Schedule 2003 00:00:00 Completed [facility] Pneumococcal 7 Conjugate, PCV7 (Prevnar7) 2003 00:00:00 Completed [facility] IPV 2003 00:00:00 Completed [facility] Hep B, Adol or Pedi Dosage 2003 00:00:00 Completed [facility] Hep B, Adol or Pedi Dosage 2003 00:00:00 Completed [facility] Hep B, Adol or Pedi Dosage 2003 00:00:00 Completed [facility] Hep B, Adol or Pedi Dosage 2003 00:00:00 Completed [facility] DTaP, Unspecified Formulation Unknown Completed [facility] DTaP, Unspecified Formulation Unknown Completed [facility] DTaP, Unspecified Formulation Unknown Completed [facility] DTaP, Unspecified Formulation Unknown Completed [facility] HEPATITIS A Unknown Completed [facility] HEPATITIS A Unknown Completed [facility] Hep B, Adol or Pedi Dosage Unknown Completed [facility] Hep B, Adol or Pedi Dosage Unknown Completed [facility] Hep B, Adol or Pedi Dosage Unknown Completed [facility] Hib-HbOC Unknown Completed [facility] HIB 4 Dose Schedule Unknown Completed [facility] HIB 4 Dose Schedule Unknown Completed [facility] HIB 4 Dose Schedule Unknown Completed [facility] HPV9 Unknown Completed [facility] Meningococcal Polysaccharide (groups A, C, Y and W-135) conjugate vaccine (MCV4P) Unknown Completed [facility] Meningococcal Polysaccharide (groups A, C, Y and W-135) conjugate vaccine (MCV4P) Unknown Completed [facility] MMR Unknown Completed [facility] MMR Unknown Completed [facility] Pneumococcal 7 Conjugate, PCV7 (Prevnar7) Unknown Completed [facility] Pneumococcal 7 Conjugate, PCV7 (Prevnar7) Unknown Completed [facility] Pneumococcal 7 Conjugate, PCV7 (Prevnar7) Unknown Completed [facility] IPV Unknown Completed [facility] IPV Unknown Completed [facility] IPV Unknown Completed [facility] IPV Unknown Completed [facility] Varicella (varivax)(chicken pox) Unknown Completed [facility] Varicella (varivax)(chicken pox) Unknown Completed [facility] TDAP Unknown Completed [facility] HPV9 Unknown Completed [facility] DTaP, Unspecified Formulation Unknown Completed [facility] DTaP, Unspecified Formulation Unknown Completed [facility] DTaP, Unspecified Formulation Unknown Completed [facility] DTaP, Unspecified Formulation Unknown Completed [facility] HEPATITIS A Unknown Completed [facility] HEPATITIS A Unknown Completed [facility] Hep B, Adol or Pedi Dosage Unknown Completed [facility] Hep B, Adol or Pedi Dosage Unknown Completed [facility] Hep B, Adol or Pedi Dosage Unknown Completed [facility] Hib-HbOC Unknown Completed [facility] HIB 4 Dose Schedule Unknown Completed [facility] HIB 4 Dose Schedule Unknown Completed [facility] HIB 4 Dose Schedule Unknown Completed [facility] HPV9 Unknown Completed [facility] Meningococcal Polysaccharide (groups A, C, Y and W-135) conjugate vaccine (MCV4P) Unknown Completed [facility] Meningococcal Polysaccharide (groups A, C, Y and W-135) conjugate vaccine (MCV4P) Unknown Completed [facility] MMR Unknown Completed [facility] MMR Unknown Completed [facility] Pneumococcal 7 Conjugate, PCV7 (Prevnar7) Unknown Completed [facility] Pneumococcal 7 Conjugate, PCV7 (Prevnar7) Unknown Completed [facility] Pneumococcal 7 Conjugate, PCV7 (Prevnar7) Unknown Completed [facility] IPV Unknown Completed [facility] IPV Unknown Completed [facility] IPV Unknown Completed [facility] IPV Unknown Completed [facility] Varicella (varivax)(chicken pox) Unknown Completed [facility] Varicella (varivax)(chicken pox) Unknown Completed [facility] TDAP Unknown Completed [facility] HPV9 Unknown Completed [facility] DTaP, Unspecified Formulation Unknown Completed [facility] DTaP, Unspecified Formulation Unknown Completed [facility] DTaP, Unspecified Formulation Unknown Completed [facility] DTaP, Unspecified Formulation Unknown Completed [facility] HEPATITIS A Unknown [facility] HEPATITIS A Unknown Completed [facility] Hep B, Adol or Pedi Dosage Unknown Completed [facility] Hep B, Adol or Pedi Dosage Unknown Completed [facility] Hep B, Adol or Pedi Dosage Unknown Completed [facility] Hib-HbOC Unknown Completed [facility] HIB 4 Dose Schedule Unknown Completed [facility] HIB 4 Dose Schedule Unknown Completed [facility] HIB 4 Dose Schedule Unknown Completed [facility] HPV9 Unknown Completed [facility] Meningococcal Polysaccharide (groups A, C, Y and W-135) conjugate vaccine (MCV4P) Unknown Completed [facility] Meningococcal Polysaccharide (groups A, C, Y and W-135) conjugate vaccine (MCV4P) Unknown Completed [facility] MMR Unknown Completed [facility] MMR Unknown Completed [facility] Pneumococcal 7 Conjugate, PCV7 (Prevnar7) Unknown Completed [facility] Pneumococcal 7 Conjugate, PCV7 (Prevnar7) Unknown Completed [facility] Pneumococcal 7 Conjugate, PCV7 (Prevnar7) Unknown Completed [facility] IPV Unknown Completed [facility] IPV Unknown Completed [facility] IPV Unknown Completed [facility] IPV Unknown Completed [facility] Varicella (varivax)(chicken pox) Unknown Completed [facility] Varicella (varivax)(chicken pox) Unknown Completed [facility] TDAP Unknown Completed [facility] HPV9 Unknown Completed [facility] DTaP, Unspecified Formulation Unknown Completed [facility] DTaP, Unspecified Formulation Unknown Completed [facility] DTaP, Unspecified Formulation Unknown Completed [facility] DTaP, Unspecified Formulation Unknown Completed [facility] HEPATITIS A Unknown Completed [facility] HEPATITIS A Unknown Completed [facility] Hep B, Adol or Pedi Dosage Unknown Completed [facility] Hep B, Adol or Pedi Dosage Unknown Completed [facility] Hep B, Adol or Pedi Dosage Unknown Completed [facility] Hib-HbOC Unknown Completed [facility] HIB 4 Dose Schedule Unknown Completed [facility] HIB 4 Dose Schedule Unknown Completed [facility] HIB 4 Dose Schedule Unknown Completed [facility] HPV9 Unknown Completed [facility] Meningococcal Polysaccharide (groups A, C, Y and W-135) conjugate vaccine (MCV4P) Unknown Completed [facility] Meningococcal Polysaccharide (groups A, C, Y and W-135) conjugate vaccine (MCV4P) Unknown Completed [facility] MMR Unknown Completed [facility] MMR Unknown Completed [facility] Pneumococcal 7 Conjugate, PCV7 (Prevnar7) Unknown Completed [facility] Pneumococcal 7 Conjugate, PCV7 (Prevnar7) Unknown Completed [facility] Pneumococcal 7 Conjugate, PCV7 (Prevnar7) Unknown Completed [facility] IPV Unknown Completed [facility] IPV Unknown Completed [facility] IPV Unknown Completed [facility] IPV Unknown Completed [facility] Varicella (varivax)(chicken pox) Unknown Completed [facility] Varicella (varivax)(chicken pox) Unknown Completed [facility] TDAP Unknown Completed [facility] HPV9 Unknown Completed [facility] DTaP, Unspecified Formulation Unknown Completed [facility] DTaP, Unspecified Formulation Unknown Completed [facility] DTaP, Unspecified Formulation Unknown Completed [facility] DTaP, Unspecified Formulation Unknown Completed [facility] HEPATITIS A Unknown Completed [facility] HEPATITIS A Unknown Completed [facility] Hep B, Adol or Pedi Dosage Unknown Completed [facility] Hep B, Adol or Pedi Dosage Unknown Completed [facility] Hep B, Adol or Pedi Dosage Unknown Completed [facility] Hib-HbOC Unknown Completed [facility] HIB 4 Dose Schedule Unknown Completed [facility] HIB 4 Dose Schedule Unknown Completed [facility] HIB 4 Dose Schedule Unknown Completed [facility] HPV9 Unknown Completed [facility] Meningococcal Polysaccharide (groups A, C, Y and W-135) conjugate vaccine (MCV4P) Unknown Completed [facility] Meningococcal Polysaccharide (groups A, C, Y and W-135) conjugate vaccine (MCV4P) Unknown Completed [facility] MMR Unknown Completed [facility] MMR Unknown Completed [facility] Pneumococcal 7 Conjugate, PCV7 (Prevnar7) Unknown Completed [facility] Pneumococcal 7 Conjugate, PCV7 (Prevnar7) Unknown Completed [facility] Pneumococcal 7 Conjugate, PCV7 (Prevnar7) Unknown Completed [facility] IPV Unknown Completed [facility] IPV Unknown Completed [facility] IPV Unknown Completed [facility] IPV Unknown Completed [facility] Varicella (varivax)(chicken pox) Unknown Completed [facility] Varicella (varivax)(chicken pox) Unknown Completed [facility] TDAP Unknown Completed [facility] HPV9 Unknown Completed [facility] Vital Signs Vital Name Observation Time Observation Value Comments S ource Systolic blood pressure 2023-10-27 03:54:00 135 mm[Hg] [facility] Diastolic blood pressure 2023-10-27 03:54:00 103 mm[Hg] [facility] Heart rate 2023-10-27 03:54:00 95 /min Un[facility] Body temperature 2023-10-27 03:54:00 36.72 [place] [facility] Respiratory rate 2023-10-27 03:54:00 18 /min [facility] Body height 2023-10-27 03:54:00 152.4 cm [facility] Body weight 2023-10-27 03:54:00 70.761 kg [facility] BMI 2023-10-27 03:54:00 30.47 kg/m2 [facility] Oxygen saturation in Arterial blood by Pulse oximetry 2023-10-27 03:54:00 100 /min [facility] Systolic blood pressure 2023-09-21 04:15:00 120 mm[Hg] [facility] Diastolic blood pressure 2023-09-21 04:15:00 68 mm[Hg] [facility] Heart rate 2023-09-21 04:15:00 93 /min Unive [facility] Body temperature 2023-09-21 04:15:00 36.89 [place] [facility] Respiratory rate 2023-09-21 04:15:00 16 /min [facility] Body height 2023-09-21 04:15:00 152.4 cm [facility] Body weight 2023-09-21 04:15:00 70.761 kg [facility] BMI 2023-09-21 04:15:00 30.47 kg/m2 [facility] Oxygen saturation in Arterial blood by Pulse oximetry 2023-09-21 04:15:00 100 /min [facility] Systolic blood pressure 2023-07-17 03:00:00 122 mm[Hg] [facility] Diastolic blood pressure 2023-07-17 03:00:00 86 mm[Hg] [facility] Heart rate 2023-07-17 03:00:00 73 /min Un[facility] Respiratory rate 2023-07-17 03:00:00 16 /min [facility] Oxygen saturation in Arterial blood by Pulse oximetry 2023-07-17 03:00:00 100 /min [facility] Body weight 2023-07-17 00:43:00 69.854 kg [facility] BMI 2023-07-17 00:43:00 30.08 kg/m2 [facility] Body temperature 2023-07-17 00:43:00 36.78 [place] [facility] Body height 2023-07-17 00:43:00 152.4 cm [facility] Systolic blood pressure 2023-05-17 19:58:00 112 mm[Hg] [facility] Diastolic blood pressure 2023-05-17 19:58:00 76 mm[Hg] [facility] Heart rate 2023-05-17 19:58:00 71 /min Unive [facility] Body temperature 2023-05-17 19:58:00 36.61 [place] [facility] Respiratory rate 2023-05-17 19:58:00 16 /min [facility] Body height 2023-05-17 19:58:00 152.4 cm [facility] Body weight 2023-05-17 19:58:00 66.225 kg [facility] BMI 2023-05-17 19:58:00 28.51 kg/m2 [facility] Oxygen saturation in Arterial blood by Pulse oximetry 2023-05-17 19:58:00 98 /min [facility] Body temperature 2023-01-05 14:10:13 37.72 [place] [facility] Systolic blood pressure 2023-01-05 14:00:00 119 mm[Hg] [facility] Diastolic blood pressure 2023-01-05 14:00:00 79 mm[Hg] [facility] Heart rate 2023-01-05 14:00:00 89 /min Un[facility] Respiratory rate 2023-01-05 14:00:00 15 /min [facility] Oxygen saturation in Arterial blood by Pulse oximetry 2023-01-05 14:00:00 96 /min [facility] Body height 2023-01-05 13:02:00 152.4 cm [facility] Body weight 2023-01-05 13:02:00 72.576 kg [facility] BMI 2023-01-05 13:02:00 31.25 kg/m2 [facility] Systolic blood pressure 2022-12-27 16:46:00 105 mm[Hg] [facility] Diastolic blood pressure 2022-12-27 16:46:00 70 mm[Hg] [facility] Heart rate 2022-12-27 16:46:00 71 /min Un[facility] Body temperature 2022-12-27 16:46:00 36.78 [place] [facility] Respiratory rate 2022-12-27 16:46:00 18 /min [facility] Body height 2022-12-27 16:46:00 152.4 cm [facility] Body weight 2022-12-27 16:46:00 73.539 kg [facility] BMI 2022-12-27 16:46:00 31.66 kg/m2 [facility] Systolic blood pressure 2022-09-28 02:27:00 133 mm[Hg] [facility] Diastolic blood pressure 2022-09-28 02:27:00 91 mm[Hg] [facility] Heart rate 2022-09-28 02:27:00 94 /min [facility] Body temperature 2022-09-28 02:27:00 37.39 [place] [facility] Respiratory rate 2022-09-28 02:27:00 16 /min [facility] Body height 2022-09-28 02:27:00 152.4 cm [facility] Body weight 2022-09-28 02:27:00 68.13 kg [facility] BMI 2022-09-28 02:27:00 29.33 kg/m2 [facility] Oxygen saturation in Arterial blood by Pulse oximetry 2022-09-28 02:27:00 100 /min [facility] Systolic blood pressure 2022-09-25 03:45:00 124 mm[Hg] [facility] Diastolic blood pressure 2022-09-25 03:45:00 79 mm[Hg] [facility] Heart rate 2022-09-25 03:45:00 81 /min Unive [facility] Body temperature 2022-09-25 03:45:00 36.89 [place] [facility] Respiratory rate 2022-09-25 03:45:00 15 /min [facility] Body height 2022-09-25 03:45:00 152.4 cm [facility] Body weight 2022-09-25 03:45:00 68.04 kg [facility] BMI 2022-09-25 03:45:00 29.29 kg/m2 [facility] Oxygen saturation in Arterial blood by Pulse oximetry 2022-09-25 03:45:00 100 /min [facility] Systolic blood pressure 2021-12-29 20:04:00 134 mm[Hg] [facility] Diastolic blood pressure 2021-12-29 20:04:00 86 mm[Hg] [facility] Heart rate 2021-12-29 20:04:00 76 /min Unive [facility] Body temperature 2021-12-29 20:04:00 36.94 [place] [facility] Respiratory rate 2021-12-29 20:04:00 18 /min [facility] Body height 2021-12-29 20:04:00 152.4 cm [facility] Body weight 2021-12-29 20:04:00 68.856 kg [facility] BMI 2021-12-29 20:04:00 29.65 kg/m2 [facility] Body mass index (BMI) [Percentile] Per age and sex 2021-12-29 20:04:00 93.49 % [facility] Procedures Procedure Date / Time Performed Performing Clinician Source POCT TEST 2023-10-27 04:27:00 Darion Nobles [facility] TEST, SERUM 2023-10-27 04:26:00 Lory Nobles [facility] COMP. METABOLIC PANEL (00565) 2023-10-27 04:26:00 Gerard Nobles [facility] CBC WITH DIFF 2023-10-27 04:26:00 Gerard Nobles [facility] URINALYSIS 2023-10-27 04:26:00 Gerard Nobles [facility] CONSENT/REFUSAL FOR DIAGNOSIS AND TREATMENT 2023-10-27 03:50:18 Doctor Unassigned, [place] [facility] ASSIGNMENT OF BENEFITS 2023-09-28 16:03:04 Docto r Unassigned, [place] [facility] NOTICE OF PRIVACY PRACTICES 2023-09-21 04:06:10 Doctor Unassigned, [place] [facility] CONSENT/REFUSAL FOR DIAGNOSIS AND TREATMENT 2023-09-21 04:05:29 Doctor Unassigned, [place] [facility] RAPID STREP SCREEN FOR GROUP A 2023-07-17 03:07:00 Roberto Griffith [facility] POCT TEST 2023-07-17 01:53:00 Marcelina Cardozo [facility] COMP. METABOLIC PANEL ([id number]) 2023-07-17 01:51:00 Sandi Cardozo [facility] CBC WITH DIFF 2023-07-17 01:51:00 Sandi Cardozo [facility] URINALYSIS 2023-07-17 01:51:00 Sandi Cardozo [facility] EBV-MONONUCLEOSIS SCREEN 2023-07-17 01:51:00 Roberto Griffith [facility] CONSENT/REFUSAL FOR DIAGNOSIS AND TREATMENT 2023-07-17 00:37:35 Doctor Unassigned, [place] [facility] POCT TEST 2023-05-17 20:06:00 Farooq Davis [facility] POCT URINALYSIS 2023-05-17 20:00:00 Farooq Davis [facility] RAPID STREP SCREEN FOR GROUP A 2023-01-05 13:18:00 Roberto Griffith [facility] RAPID INFLUENZA A/B 2023-01-05 13:09:00 Aminah Griffith [facility] COVID-19 (ID NOW RAPID TESTING) 2023-01-05 13:09:00 Roberto Griffith [facility] THYROID STIMULATING HORMONE 2022-12-27 17:10:00 Joyce Lopez [facility] CBC WITH DIFF 2022-12-27 17:10:00 Joyce Lopez [facility] GLYCOSYLATED HEMOGLOBIN (A1C) 2022-12-27 17:10:00 Joyce Lopez [facility] RUBELLA SCREEN IGG 2022-12-27 17:10:00 Gretchen Lopez [facility] HCV ANTIBODY 2022-12-27 17:10:00 Joyce Lopez [facility] GC & CHLAMYDIA AMPLIFIED ASSAY 2022-12-27 17:10:00 Joyce Lopez [facility] HIV 1/2 AG-AB WITH REFLEX 2022-12-27 17:10:00 Joyce Lopez [facility] SYPHILIS IGG/IGM 2022-12-27 17:10:00 Joyce Lopez [facility] GARDASIL 9 (HPV 9V) VACCINE 2022-12-27 16:53:08 Joyce Lopez [facility] POCT TEST 2022-12-27 16:47:00 Danielle Lopez [facility] ASSIGNMENT OF BENEFITS 2022-12-27 15:53:31 Docto r Unassigned, [place] [facility] CONSENT/REFUSAL FOR DIAGNOSIS AND TREATMENT 2022-09-28 02:20:10 Doctor Unassigned, [place] [facility] POCT TEST 2022-09-25 04:35:00 Bandar Castillo [facility] NOTICE OF PRIVACY PRACTICES 2022-09-25 03:45:44 Doctor Unassigned, [place] [facility] CONSENT/REFUSAL FOR DIAGNOSIS AND TREATMENT 2022-09-25 03:44:56 Doctor Unassigned, [place] [facility] Encounters Start Date/Time End Date/Time Encounter Type Admission Type Attending [facility] Care Facility Care Department Encounter ID Source 2021-06-26 08:58:39 Emergency [facility] [id number] [facility] 2021-06-24 18:43:46 Outpatient LES HUGGINS [facility] [id number] [facility] 2023-11-29 15:30:00 2023-11-29 15:30:00 Outpatient ALAN BAEZA [id number] Yady López 2023-10-26 21:57:00 2023-10-26 23:58:00 Emergency X GERARD NOBLES [facility] ERT [id number] [facility] 2023-10-26 21:57:00 2023-10-26 23:58:00 Emergency Gerard Nobles [facility] 1..840.114 350.1.13.10 4.2.7.2.686 [id number] [facility] 2023-10-16 15:53:57 2023-10-16 15:53:57 Outpatient SFA STEPHANIE [id number] Marquis Gill Tanner 2023-09-28 10:15:00 2023-09-28 10:15:00 Outpatient R CATRACHITA NGUYEN [facility] [id number] [facility] 2023-09-28 00:00:00 2023-09-28 00:00:00 Orders Only Doctor Unassigned, [place] [facility] 1..840.114 350.1.13.10 4.2.7.2.686 [id number] [facility] 2023-09-20 22:18:00 2023-09-20 23:14:00 Emergency X ROBERTO GRIFFITH [facility] ERT [id number] [facility] 2023-09-20 22:18:00 2023-09-20 23:14:00 Emergency Roberto Griffith [facility] 1..840.114 350.1.13.10 4.2.7.2.686 [id number] [facility] 2023-07-16 18:45:00 2023-07-16 22:54:00 Emergency X ROBERTO GRIFFITH [facility] ERT [id number] [facility] 2023-07-16 18:45:00 2023-07-16 22:54:00 Emergency Cas SandiRoberto Reyna [facility] 1..840.114 350.1.13.10 4.2.7.2.686 [id number] [facility] 2023-07-03 14:00:00 2023-07-03 14:00:00 Outpatient R VIANEY GARCIA [facility] [id number] [facility] 2023-05-17 15:00:00 2023-05-17 15:24:56 Outpatient R FAROOQ DAVIS [facility] [id number] [facility] 2023-05-17 15:00:00 2023-05-17 15:20:00 Urgent Care SusanFarooq Unknown, Attending [facility] 1..840.114 350.1.13.10 4.2.7.2.686 [id number] [facility] 2023-03-27 13:30:00 2023-03-27 13:30:00 Outpatient R JOYCE LOPEZ [facility] [id number] [facility] 2023-03-13 00:00:00 2023-03-13 00:00:00 Tele[address] Joyce Lopez [facility] 1.2.840.114 350.1.13.10 4.2.7.2.686 [id number] [facility] 2023-01-05 08:03:00 2023-01-05 09:46:00 Emergency X ISAAC ROBERTO [facility] ERT [id number] [facility] 2023-01-05 08:03:00 2023-01-05 09:46:00 Emergency GriffithRoberto [facility] 1.2.840.114 350.1.13.10 4.2.7.2.686 [id number] [facility] 2022-12-27 11:00:00 2022-12-27 12:13:57 Outpatient R JOYCE LOPEZ [facility] [id number] [facility] 2022-12-27 11:00:00 2022-12-27 12:13:57 Office Visit Joyce Lopez [facility]ILD [facility] 1.2.840.114 350.1.13.10 4.2.7.2.686 [id number] [facility] 2022-12-27 00:00:00 2022-12-27 00:00:00 Orders Only Doctor Unassigned, [place] [facility] 1.2.840.114 350.1.13.10 4.2.7.2.686 [id number] [facility] 2022-09-27 20:33:00 2022-09-27 21:45:00 Emergency X ALEXIS CAMPOS [facility] ERT [id number] [facility] 2022-09-27 20:33:00 2022-09-27 21:45:00 Emergency Alexis Campos [facility] 1.2.840.114 350.1.13.10 4.2.7.2.686 [id number] [facility] 2022-09-27 10:15:00 2022-09-27 10:15:00 Outpatient ANNABELLE WISE [facility] [id number] [facility] 2022-09-24 21:55:00 2022-09-24 23:00:00 Emergency X BANDAR CASTILLO [facility] ERT [id number] [facility] 2022-09-24 21:55:00 2022-09-24 23:00:00 Emergency Bandar Castillo S [facility] 1..114 350.1.13.10 4.2.7.2.686 [id number] [facility] 2022-01-06 09:56:00 2022-01-06 09:56:00 Outpatient Facundo Almanzar [facility] [id number] [facility] 2021-12-30 00:00:00 2021-12-30 00:00:00 Telephone Mayra Saavedra [facility] 1..114 350.1.13.10 4.2.7.2.686 [id number] [facility] 2021-12-29 15:15:00 2021-12-29 15:46:42 Outpatient R MAYRA SAAVEDRA [facility] [id number] [facility] 2021-12-29 15:15:00 2021-12-29 15:46:42 Office Visit Mayra Saavedra [facility] 1..114 350.1.13.10 4.2.7.2.686 [id number] [facility] 2021-12-29 00:00:00 2021-12-29 00:00:00 Orders Only Doctor Unassigned, [place] [facility] 1.114 350.1.13.10 4.2.7.2.686 [id number] [facility] 2021-12-22 09:45:00 2021-12-22 09:45:00 Outpatient RENETTA JULIEN [facility] [id number] [facility] 2021-12-22 09:45:00 2021-12-22 09:45:00 Outpatient RENETTA JULIEN [facility] [id number] [facility] 2021-12-14 15:00:00 2021-12-14 15:00:00 Outpatient VIANEY RUIZ [facility] [id number] [facility] 2021-12-08 08:53:50 2021-12-08 23:59:00 Outpatient RENETTA JULIEN [facility] [id number] [facility] 2021-12-08 08:45:00 2021-12-08 10:02:07 Outpatient RENETTA JULIEN [facility] [id number] [facility] 2021-12-08 08:45:00 2021-12-08 10:02:07 Outpatient Cecily COON [facility] [id number] [facility] 2021-12-08 08:45:00 2021-12-08 09:00:00 Office Visit Renetta Coon [facility] 1.2.840.114 350.1.13.10 4.2.7.2.686 [id number] [facility] 2021-12-01 14:15:00 2021-12-01 14:15:00 Outpatient RENETTA JULIEN [facility] [id number] [facility] 2021-12-01 14:15:00 2021-12-01 14:15:00 Outpatient RENETTA JULIEN [facility] [id number] [facility] 2021-11-29 09:15:00 2021-11-29 09:30:00 Replenishment Buyer Visit 2, [facility], [facility] BUILDING 1..840.114 350.1.13.10 4.2.7.2.686 [id number] [facility] 2021-11-29 09:15:00 2021-11-29 09:15:00 Outpatient Cecily RIVERASOFÍA [facility] [id number] [facility] 2021-11-29 09:15:00 2021-11-29 09:15:00 Outpatient Cecily RIVERASOFÍA [facility] [id number] [facility] 2021-11-29 08:30:00 2021-11-29 08:30:00 Office Visit Tylor Annabelle [facility] 1..840.114 350.1.13.10 4.2.7.2.686 [id number] [facility] 2021-11-24 00:00:00 2021-11-24 00:00:00 Orders Only Doctor Unassigned, [place] [facility] 1..840.114 350.1.13.10 4.2.7.2.686 [id number] [facility] 2021-11-17 15:00:00 2021-11-17 15:00:00 Outpatient Cecily JO [facility] [id number] [facility] 2021-11-09 09:00:00 2021-11-09 09:00:00 Outpatient Cecily JO [facility] [id number] [facility] 2021-09-21 15:30:00 2021-09-21 15:41:13 Nurse Visit Nurse, [facility] Vianey Garcia [facility] 1..840.114 350.1.13.10 4.2.7.2.686 [id number] [facility] 2021-09-21 15:30:00 2021-09-21 15:30:00 Outpatient R VIANEY GARCIA [facility] [id number] [facility] 2021-09-13 15:30:00 2021-09-13 15:30:00 Outpatient R VIANEY GARCIA [facility] [id number] [facility] 2021-08-03 15:30:00 2021-08-03 15:30:00 Outpatient R [facility] [id number] [facility] 2021-05-11 15:44:35 2021-05-11 16:44:44 Nurse Visit Nurse, [facility] Samanta Petty [facility] 1..840.114 350.1.13.10 4.2.7.2.686 [id number] [facility] 2021-05-11 08:00:00 2021-05-11 08:00:00 Outpatient R [facility] [id number] [facility] 2021-05-11 00:00:00 2021-05-11 00:00:00 Orders Only Doctor Unassigned, [place] [facility] 1.840.114 350.1.13.10 4.2.7.2.686 [id number] [facility] 2021-05-10 08:00:00 2021-05-10 08:00:00 Outpatient R [facility] [id number] [facility] 2021-05-03 15:00:00 2021-05-03 15:00:00 Outpatient R [facility] [id number] [facility] 2021-04-30 00:00:00 2021-04-30 00:00:00 Nurse Triage Lucrecia Williamson [facility] 1.840.114 350.1.13.10 4.2.7.2.686 [id number] [facility] 2021-03-18 15:30:00 2021-03-18 15:30:00 Outpatient R [facility] [id number] [facility] 2021-03-16 14:30:00 2021-03-16 14:30:00 Outpatient R [facility] [id number] [facility] 2021-03-16 00:00:00 2021-03-16 00:00:00 [facility] 1..840.114 350.1.13.10 4.2.7.2.686 [id number] [facility] 2021-02-25 10:15:00 2021-02-25 10:15:00 Outpatient Cecily COON [facility] [id number] [facility] [facility] 2021-02-17 15:00:00 2021-02-17 15:00:00 Outpatient Cecily COON [facility] [id number] [facility] 2021-02-11 10:00:00 2021-02-11 10:00:00 Outpatient Cecily COON [facility] [id number] [facility] 2020-12-15 14:23:49 2020-12-15 14:38:49 Replenishment Buyer Visit 2, [facility] Lab AdVianey teague [facility] 1.2.840.114 350.1.13.10 4.2.7.2.686 [id number] [facility] 2020-12-15 13:51:57 2020-12-15 14:18:57 Nurse Visit Nurse, [facility] Ad Vianey [facility] 1.2.840.114 350.1.13.10 4.2.7.2.686 [id number] [facility] 2020-12-15 14:00:00 2020-12-15 14:00:00 Outpatient R JASPREET [facility] [id number] [facility] 2020-12-06 13:30:00 2020-12-06 13:30:00 Outpatient R [facility]ET[facility]ANEY [facility] [id number] [facility] 2020-11-20 17:26:00 2020-11-20 17:37:[address] [facility] 1.2.840.114 350.1.13.10 4.2.7.2.686 [id number] [facility] 2020-11-20 00:00:00 2020-11-20 00:00:00 Orders Only Doctor Unassigned, [place] [facility] 1.2.840.114 350.1.13.10 4.2.7.2.686 [id number] [facility] 2020-11-16 00:00:00 2020-11-16 00:00:00 Case Management Vianey Garcia [facility] 1.2.840.114 350.1.13.10 4.2.7.2.686 [id number] [facility] 2020-11-09 13:35:56 2020-11-09 15:09:56 Office Visit [facility] 1.2.840.114 350.1.13.10 4.2.7.2.686 [id number] [facility] 2020-11-09 13:30:00 2020-11-09 13:30:00 Outpatient R JASPREET [facility] [id number] [facility] 2020-11-08 15:45:00 2020-11-08 15:45:00 Outpatient ANNABELLE WISE [facility] [id number] [facility] 2020-11-05 15:00:00 2020-11-05 15:00:00 Outpatient R JASPREET [facility] [id number] [facility] 2020-11-04 14:30:00 2020-11-04 14:30:00 [facility] [id number] [facility] 2020-11-02 00:00:00 2020-11-02 00:00:00 Telephone Adum, Vianey Hernandez [facility] [place] [facility] 1.2.840.114 350.1.13.10 4.2.7.2.686 [id number] [facility] 2020-09-23 00:00:00 2020-09-23 00:00:00 Orders Only Doctor Unassigned, [place] [facility] 1.2.840.114 350.1.13.10 4.2.7.2.686 [id number] [facility] 2020-09-15 00:00:00 2020-09-15 00:00:00 Case Management Adum, Vianey Hernandez [facility] 1.2840.114 350.1.13.10 4.2.7.2.686 [id number] [facility] 2020-09-10 00:00:00 2020-09-10 00:00:00 Case Management Adum, Vianey Hernandez [facility] 1.2.840.114 350.1.13.10 4.2.7.2.686 [id number] [facility] 2020-09-09 10:14:30 2020-09-09 10:29:30 Replenishment Buyer Visit 2, [facility] Lab Adum, Vianey Hernandez [facility] 1.2.840.114 350.1.13.10 4.2.7.2.686 [id number] [facility] 2020-09-09 08:31:02 2020-09-09 09:58:53 Office Visit Adum, Vianey Hernandez [facility] 1.2.840.114 350.1.13.10 4.2.7.2.686 [id number] [facility] 2020-09-09 09:00:00 2020-09-09 09:00:00 Outpatient R VIANEY GARCIA [facility] [id number] [facility] 2020-09-09 00:00:00 2020-09-09 00:00:00 Orders Only Doctor Unassigned, [place] [facility] 1.0.114 350.1.13.10 4.2.7.2.686 [id number] [facility] 2020-06-15 00:00:00 2020-06-15 00:00:00 Orders Only Doctor Unassigned, [place] [facility] 1..114 350.1.13.10 4.2.7.2.686 [id number] [facility] 2020-06-07 15:12:17 2020-06-07 15:27:17 Office Visit Renetta Coon [facility] 1.114 350.1.13.10 4.2.7.2.686 [id number] [facility] 2020-06-07 15:00:00 2020-06-07 15:00:00 Outpatient R JAYMIE [facility] [id number] [facility] 2020-05-24 05:58:00 2020-05-24 09:24:00 Hospital Encounter Les Huggins [facility] 1.114 350.1.13.10 4.2.7.2.686 [id number] [facility] 2020-05-22 13:24:32 2020-05-22 13:44:32 Laboratory Only Lab, Adc Fam Pob Page Holman [facility] One 1..114 350.1.13.10 4.2.7.2.686 [id number] [facility] 2020-05-22 13:20:00 2020-05-22 13:20:00 Outpatient R PAGE RED [facility] [id number] [facility] 2020-05-21 11:00:00 2020-05-21 11:00:00 Outpatient R PANKAJ REESE [facility] [id number] [facility] 2020-05-17 00:00:00 2020-05-17 00:00:00 Prep For Surgery Les Huggins [facility] Surgical Specialti es [place] 1.20.114 350.1.13.10 4.2.7.2.686 [id number] [facility] 2020-05-13 11:14:45 2020-05-13 11:39:37 Office Visit Renetta Coon [facility] Surgical Specialti yamilex [place] 1..114 350.1.13.10 4.2.7.2.686 [id number] [facility] 2020-05-13 11:00:00 2020-05-13 11:00:00 Outpatient R LES HUGGINS [facility] [id number] [facility] 2020-05-13 00:00:00 2020-05-13 00:00:00 Letter (Out) Renetta Coon [facility] Surgical Specialti es [place] 1.2.114 350.1.13.10 4.2.7.2.686 [id number] [facility] 2020-05-13 00:00:00 2020-05-13 00:00:00 Letter (Out) Renetta Coon [facility] Surgical Specialti es [place] 1.2840.114 350.1.13.10 4.2.7.2.686 [id number] [facility] 2020-05-05 15:15:00 2020-05-05 23:59:00 Hospital Encounter Les Huggins [facility] 1.2840.114 350.1.13.10 4.2.7.2.686 [id number] [facility] 2020-05-05 00:00:00 2020-05-05 00:00:00 Outpatient R LES HUGGINS [facility] [id number] [facility] 2020-04-15 00:00:00 2020-04-15 00:00:00 Orders Only Doctor Unassigned, [place] [facility] 1.2.840.114 350.1.13.10 4.2.7.2.686 [id number] [facility] 2020-04-08 00:00:00 2020-04-08 00:00:00 Telephone Les Huggins [facility] Surgical Specialti [facility] 1.2.840.114 350.1.13.10 4.2.7.2.686 [id number] [facility] 2020-04-05 14:45:57 2020-04-05 15:00:57 Office Visit Renetta Coon [facility] Surgical Specialti [facility] 1.2840.114 350.1.13.10 4.2.7.2.686 [id number] [facility] 2020-04-05 15:00:00 2020-04-05 15:00:00 Outpatient Cecily COON [facility] [id number] [facility] 2020-04-01 14:00:00 2020-04-01 14:00:00 Outpatient Cecily COON [facility] [id number] [facility] 2020 11:37:49 2020 13:13:[address] [facility] 1.284.114 350.1.13.10 4.2.7.2.686 [id number] [facility] 2020 11:37:49 2020 13:13:00 Emergency X MARIAA RAE [facility] ERT [id number] [place] [address] Results Test Description Test Time Test Comments Results Result Co [facility] Source [facility] ([id number])2023-10-27 04:49:57* Test Item Value Reference Range Interpretation Comme nts NA (test code = 7485731128) 139 mmol/L 135-145 K (test code = 1157410368) 4.0 mmol/L 3.5-5.0 CL (test code = 3355727120) 108 mmol/L 98-108 CO2 TOTAL (test code = 5888207558) 25 mmol/L 23-31 AGAP (test code = 8864233570) 6 2-16 BUN (test code = 4258085513) 14 mg/dL 7-23 GLUCOSE (test code = 6938376415) 97 mg/dL 70-110 CREATININE (test code = 2160-0) 0.56 mg/dL 0.50-1.04 TOTAL BILI (test code = 5690136803) 0.7 mg/dL 0.1-1.1 CALCIUM (test code = 4087003528) 8.8 mg/dL 8.6-10.6 T PROTEIN (test code = 9638241202) 8.4 g/dL 6.3-8.2 H ALBUMIN (test code = 0183872048) 4.1 g/dL 3.5-5.0 ALK PHOS (test code = 9442108259) 65 U/L 34-122 ALTv (test code = 1742-6) 21 U/L 5-35 AST(SGOT) (test code = 1886462874) 37 U/L 13-40 eGFR (test code = 69807-9) 134.2 mL/min/1.73m2 CKD-EPI eGFR (2020). Assuming creatinine has been stable day-to-day for at least three months, the eGFR indicates Category G1 (>= 90 mL/min/1.73 m2) Lab Interpretation (test code = 60903-3) [facility]normal [facility] [id number] 04:36:34* Test Item Value Reference Range Interpretation Comme nts WBC (test code = 6690-2) 12.62 4.30-11.10 H RBC (test code = 789-8) 4.18 3.93-5.25 HGB (test code = 718-7) 12.3 g/dL 11.6-15.0 HCT (test code = 4544-3) 36.6 % 35.7-45.2 MCV (test code = 787-2) 87.6 fL 80.6-95.5 MCH (test code = 785-6) 29.4 pg 25.9-32.8 MCHC (test code = 786-4) 33.6 g/dL 31.6-35.1 RDW-SD (test code = 75716-2) 43.0 fL 39.0-49.9 RDW-CV (test code = 788-0) 13.5 % 12.0-15.5 PLT (test code = 777-3) 241 166-358 MPV (test code = 93752-0) 12.1 fL 9.5-12.9 NRBC/100 WBC (test code = 5687230284) 0.0 0.0-10.0 NRBC x10^3 (test code = 0194680995) See_Comment [Automated messa ge] The system which generated this result transmitted reference range: 10*3/?L. The reference range was not used to interpret this result as normal/abnormal. GRAN MAT (NEUT) % (test code = 770-8) 67.8 % IMM GRAN % (test code = 5748573708) 0.60 % LYMPH % (test code = 736-9) 21.2 % MONO % (test code = 5905-5) 8.9 % EOS % (test code = 713-8) 1.0 % BASO % (test code = 706-2) 0.5 % GRAN MAT x10^3(ANC) (test code = 0101945640) 8.58 10*3/uL 1.88-7.09 H IMM GRAN x10^3 (test code = 2882045604) 0.07 10*3/uL 0.00-0.06 H LYMPH x10^3 (test code = 731-0) 2.67 10*3/uL 1.32-3.29 MONO x10^3 (test code = 742-7) 1.12 10*3/uL 0.33-0.92 H EOS x10^3 (test code = 711-2) 0.12 10*3/uL 0.03-0.39 BASO x10^3 (test code = 704-7) 0.06 10*3/uL 0.01-0.07 Lab Interpretation (test code = 09851-3) [facility]normal [facility] [id number] 04:27:00* Test Item Value Reference Range Interpretation Comme nts POCT PREG (test code = 1605) Negative On board controls acceptable with C Line (test code = 3574) Yes POCT PREG LOT # (test code = 3575) [id number] POCT PREG TEST DATE ( test code = 3576) 10-01-2024 Lab Interpretation (test cod e = 92098-6) Normal [facility]. METABOLIC PANEL (16946)2023-07-17 02:17:29* Test Item Value Reference Range Interpretation Comme nts NA (test code = 8796135911) 140 mmol/L 135-145 K (test code = 7035530384) 3.9 mmol/L 3.5-5.0 CL (test code = 2509682931) 103 mmol/L 98-108 CO2 TOTAL (test code = 2886813693) 29 mmol/L 23-31 AGAP (test code = 8287983339) 8 2-16 BUN (test code = 0896774709) 10 mg/dL 7-23 GLUCOSE (test code = 0886720429) 95 mg/dL 70-110 CREATININE (test code = 9704494143) 0.84 mg/dL 0.50-1.04 TOTAL BILI (test code = 3744860888) 0.3 mg/dL 0.1-1.1 CALCIUM (test code = 9189504795) 9.1 mg/dL 8.6-10.6 T PROTEIN (test code = 4245973961) 8.4 g/dL 6.3-8.2 H ALBUMIN (test code = 7338914624) 4.5 g/dL 3.5-5.0 ALK PHOS (test code = 4562815229) 80 U/L 34-122 ALTv (test code = 1742-6) 16 U/L 5-35 AST(SGOT) (test code = 1946795538) 22 U/L 13-40 eGFR (test code = 03526-0) 102.2 mL/min/1.73m2 CKD-EPI eGFR (2020). Assuming creatinine has been stable day-to-day for at least three months, the eGFR indicates Category G1 (>= 90 mL/min/1.73 m2) Lab Interpretation (test code = 36868-8) Abnormal [facility] WITH [id number] 02:15:48* Test Item Value Reference Range Interpretation Comme nts WBC (test code = 6690-2) 11.54 See_Comment H [Automated O2 Medtecha ge] The system which generated this result transmitted reference range: 4.30 - 11.10 10*3/?L. The reference range was not used to interpret this result as normal/abnormal. RBC (test code = 789-8) 4.87 See_Comment [Automated O2 Medtecha ge] The system which generated this result transmitted reference range: 3.93 - 5.25 10*6/?L. The reference range was not used to interpret this result as normal/abnormal. HGB (test code = 718-7) 14.4 g/dL 11.6-15.0 HCT (test code = 4544-3) 43.2 % 35.7-45.2 MCV (test code = 787-2) 88.7 fL 80.6-95.5 MCH (test code = 785-6) 29.6 pg 25.9-32.8 MCHC (test code = 786-4) 33.3 g/dL 31.6-35.1 RDW-SD (test code = 76921-8) 42.6 fL 39.0-49.9 RDW-CV (test code = 788-0) 13.2 % 12.0-15.5 PLT (test code = 777-3) 277 See_Comment [Automated O2 Medtecha ge] The system which generated this result transmitted reference range: 166 - 358 10*3/?L. The reference range was not used to interpret this result as normal/abnormal. MPV (test code = 44155-2) 10.5 fL 9.5-12.9 NRBC/100 WBC (test code = 5213461525) 0.0 See_Comment [Automated [employer] ssage] The system which generated this result transmitted reference range: 0.0 - 10.0 /100 WBCs. The reference range was not used to interpret this result as normal/abnormal. NRBC x10^3 (test code = 5857835099) See_Comment [Automated messa ge] The system which generated this result transmitted reference range: 10*3/?L. The reference range was not used to interpret this result as normal/abnormal. GRAN MAT (NEUT) % (test code = 770-8) 60.3 % IMM GRAN % (test code = 2519895794) 0.30 % LYMPH % (test code = 736-9) 25.9 % MONO % (test code = 5905-5) 10.8 % EOS % (test code = 713-8) 2.0 % BASO % (test code = 706-2) 0.7 % GRAN MAT x10^3(ANC) (test code = 4491975864) 6.95 10*3/uL 1.88-7.09 IMM GRAN x10^3 (test code = 9059994478) 0.04 10*3/uL 0.00-0.06 LYMPH x10^3 (test code = 731-0) 2.99 10*3/uL 1.32-3.29 MONO x10^3 (test code = 742-7) 1.25 10*3/uL 0.33-0.92 H EOS x10^3 (test code = 711-2) 0.23 10*3/uL 0.03-0.39 BASO x10^3 (test code = 704-7) 0.08 10*3/uL 0.01-0.07 H Lab Interpretation (test code = 47997-7) [id number] 01:53:00* Test Item Value Reference Range Interpretation Comme nts POCT PREG (test code = 1605) Negative On board controls acceptable with C Line (test code = 3574) Yes POCT PREG LOT # (test code = 3575) [id number] POCT PREG TEST DATE ( test code = 3576) 2024-11-29 Lab Interpretation (test cod e = 11499-1) [facility] [id number] 20:06:00* Test Item Value Reference Range Interpretation Comme nts POCT PREG (test code = 1605) Negative On board controls acceptable with C Line (test code = 3574) Yes POCT PREG LOT # (test code = 3575) POCT PREG TEST DATE ( test code = 3576) [facility]IFIC [id number] 20:01:00* Test Item Value Reference Range Interpretation Comme nts POCT U SP GRAV (test code = 3255) 1.020 mg/dl 1.005-1.025 POCT PH U (test code = 3254) 5.0 mg/dl 5-8 POCT U LEUK EST (test code = 3263) 1+ Negative - Negative POCT U NIT (test code = 3262) neg Negative - Negati ve POCT U PROT (test code = 3259) trace Negative - Negative POCT U GLU (test code = 3256) normal Negative - Negati ve POCT U KETONE (test code = 3258) neg Negative - Negative POCT U UROBILI (test code = 3260) normal 0.2-1 POCT U BILI (test code = 3261) neg Negative - Negative POCT U BLD (test code = 3257) 50 Negative - Negati ve POCT U COLOR (test code = 3266) yellow POCT U APPEAR (test code = 3267) cloudy [facility] SCREEN (ANGELIC) [id number] 19:07:18 * Test Item Value Reference Range Interpretation Comme [facility] Rubella screen IgG (test code = 9824285881) Positive Negative ZORAIDA (test code = ZORAIDA) Positive - Indicat es the patient was exposed to Rubella through infection or vaccination.Negative - Indicates the patient could be susceptible to Rubella infection.Equivocal - A second specimen should be sent. [facility] SCREEN (ANGELIC) [id number] 19:07:18 * Test Item Value Reference Range Interpretation Comme [facility] Rubella screen IgG (test code = 7618146298) Positive Negative ZORAIDA (test code = ZORAIDA) Positive - Indicat es the patient was exposed to Rubella through infection or vaccination.Negative - Indicates the patient could be susceptible to Rubella infection.Equivocal - A second specimen should be sent. [facility] SY[facility]IL[facility] [id number] 17:26:01* Test Item Value Reference Range Interpretation Comme nts Syphilis IgG/IgM (test code = 61471-0) Non-reactive Non-reactive ZORAIDA (test code = ZORAIDA) Non-reactive - No serologic evidence of T. pallidum infection. Cannot exclude incubating or early syphilis. Submit a second specimen in 2-4 weeks if syphilis is clinically suspected. Equivocal - Further testing to follow. Reactive - Further testing to follow. Lab Interpretation (test code = 05918-9) Normal [facility] SYPHILIS [id number] 17:26:01* Test Item Value Reference Range Interpretation Comme nts Syphilis IgG/IgM (test code = 52399-1) Non-reactive Non-reactive ZORAIDA (test code = ZORAIDA) Non-reactive - No serologic evidence of T. pallidum infection. Cannot exclude incubating or early syphilis. Submit a second specimen in 2-4 weeks if syphilis is clinically suspected. Equivocal - Further testing to follow. Reactive - Further testing to follow. Lab Interpretation (test code = 66470-4) Normal [facility]A1C)2022-12-28 15:57:54* Test Item Value Reference Range Interpretation Comme nts HGB A1C (test code = 4548-4) 5.5 % 4.0-5.7 ZORAIDA (test code = ZORAIDA) Reference RangesNormal: <5.7%Prediabetes: 5.7 - 6.4%Diabetes: > 6.5% Lab Interpretation (test code = 59017-6) Normal [facility]A1C)2022-12-28 15:57:54* Test Item Value Reference Range Interpretation Comme nts HGB A1C (test code = 4548-4) 5.5 % 4.0-5.7 ZORAIDA (test code = ZORAIDA) Reference RangesNormal: <5.7%Prediabetes: 5.7 - 6.4%Diabetes: > 6.5% Lab Interpretation (test code = 09531-7) [facility]-AB WITH [id number] 12:20:58* Test Item Value Reference Range Interpretation Comme nts HIV Semi-quantitative (test code = 45114-3) 0.07 Negative ZORAIDA (test code = ZORAIDA) Non-reactive for HIV-1 antigen and HIV-1/HIV-2 antibodies. ?No laboratory evidence of HIV infection. ?Repeat in 2-4 weeks if acute HIV infection is suspected. [facility] WITH [id number] 12:20:58* Test Item Value Reference Range Interpretation Comme nts HIV Semi-quantitative (test code = 32563-3) 0.07 Negative ZORAIDA (test code = ZORAIDA) Non-reactive for HIV-1 antigen and HIV-1/HIV-2 antibodies. ?No laboratory evidence of HIV infection. ?Repeat in 2-4 weeks if acute HIV infection is suspected. [facility] [id number] 09:03:31* Test Item Value Reference Range Interpretation Comme nts HCV Ab (test code = 60724-3) Negative HCV Semi-Quantitative (test code = 06165-9) 0.02 [facility] [id number] 09:03:31* Test Item Value Reference Range Interpretation Comme nts HCV Ab (test code = 39154-9) Negative HCV Semi-Quantitative (test code = 17013-1) 0.02 [facility] [id number] 08:28:04 * Test Item Value Reference Range Interpretation Comme nts TSH (test code = 8965574634) 0.99 See_Comment [Automated messa ge] The system which generated this result transmitted reference range: 0.45 - 4.70 mIU/L. The reference range was not used to interpret this result as normal/abnormal. Lab Interpretation (test code = 59650-2) Normal [facility] [id number] 08:28:04 * Test Item Value Reference Range Interpretation Comme nts TSH (test code = 7258556914) 0.99 See_Comment [Automated messa ge] The system which generated this result transmitted reference range: 0.45 - 4.70 mIU/L. The reference range was not used to interpret this result as normal/abnormal. Lab Interpretation (test code = 29465-0) Normal [facility] WITH [id number] 07:54:04* Test Item Value Reference Range Interpretation Comme nts WBC (test code = 6690-2) 9.41 See_Comment [Automated messa ge] The system which generated this result transmitted reference range: 4.30 - 11.10 10*3/?L. The reference range was not used to interpret this result as normal/abnormal. RBC (test code = 789-8) 4.84 See_Comment [Automated messa ge] The system which generated this result transmitted reference range: 3.93 - 5.25 10*6/?L. The reference range was not used to interpret this result as normal/abnormal. HGB (test code = 718-7) 14.1 g/dL 11.6-15.0 HCT (test code = 4544-3) 43.1 % 35.7-45.2 MCV (test code = 787-2) 89.0 fL 80.6-95.5 MCH (test code = 785-6) 29.1 pg 25.9-32.8 MCHC (test code = 786-4) 32.7 g/dL 31.6-35.1 RDW-SD (test code = 17179-8) 42.5 fL 39.0-49.9 RDW-CV (test code = 788-0) 13.0 % 12.0-15.5 PLT (test code = 777-3) 232 See_Comment [Automated O2 Medtecha ge] The system which generated this result transmitted reference range: 166 - 358 10*3/?L. The reference range was not used to interpret this result as normal/abnormal. MPV (test code = 91149-9) 11.5 fL 9.5-12.9 NRBC/100 WBC (test code = 6481866786) 0.0 See_Comment [Automated [employer] ssage] The system which generated this result transmitted reference range: 0.0 - 10.0 /100 WBCs. The reference range was not used to interpret this result as normal/abnormal. NRBC x10^3 (test code = 9480810642) See_Comment [Automated O2 Medtecha ge] The system which generated this result transmitted reference range: 10*3/?L. The reference range was not used to interpret this result as normal/abnormal. GRAN MAT (NEUT) % (test code = 770-8) 57.6 % IMM GRAN % (test code = 2293637269) 0.20 % LYMPH % (test code = 736-9) 29.9 % MONO % (test code = 5905-5) 8.6 % EOS % (test code = 713-8) 2.7 % BASO % (test code = 706-2) 1.0 % GRAN MAT x10^3(ANC) (test code = 7036900644) 5.43 10*3/uL 1.88-7.09 IMM GRAN x10^3 (test code = 5787610088) 0.00-0.06 LYMPH x10^3 (test code = 731-0) 2.81 10*3/uL 1.32-3.29 MONO x10^3 (test code = 742-7) 0.81 10*3/uL 0.33-0.92 EOS x10^3 (test code = 711-2) 0.25 10*3/uL 0.03-0.39 BASO x10^3 (test code = 704-7) 0.09 10*3/uL 0.01-0.07 H Lab Interpretation (test code = 22891-0) Abnormal [facility] WITH [id number] 07:54:04* Test Item Value Reference Range Interpretation Comme nts WBC (test code = 6690-2) 9.41 See_Comment [Automated [employer]2 [employer] Hear It First] The system which generated this result transmitted reference range: 4.30 - 11.10 10*3/?L. The reference range was not used to interpret this result as normal/abnormal. RBC (test code = 789-8) 4.84 See_Comment [Automated [employer]2 [employer] Hear It First] The system which generated this result transmitted reference range: 3.93 - 5.25 10*6/?L. The reference range was not used to interpret this result as normal/abnormal. HGB (test code = 718-7) 14.1 g/dL 11.6-15.0 HCT (test code = 4544-3) 43.1 % 35.7-45.2 MCV (test code = 787-2) 89.0 fL 80.6-95.5 MCH (test code = 785-6) 29.1 pg 25.9-32.8 MCHC (test code = 786-4) 32.7 g/dL 31.6-35.1 RDW-SD (test code = 07057-7) 42.5 fL 39.0-49.9 RDW-CV (test code = 788-0) 13.0 % 12.0-15.5 PLT (test code = 777-3) 232 See_Comment [Automated messa ge] The system which generated this result transmitted reference range: 166 - 358 10*3/?L. The reference range was not used to interpret this result as normal/abnormal. MPV (test code = 07298-2) 11.5 fL 9.5-12.9 NRBC/100 WBC (test code = [id number]) 0.0 See_Comment [Automated [employer] ssage] The system which generated this result transmitted reference range: 0.0 - 10.0 /100 WBCs. The reference range was not used to interpret this result as normal/abnormal. NRBC x10^3 (test code = 9026805715) See_Comment [Automated [employer] ge] The system which generated this result transmitted reference range: 10*3/?L. The reference range was not used to interpret this result as normal/abnormal. GRAN MAT (NEUT) % (test code = 770-8) 57.6 % IMM GRAN % (test code = 3944176135) 0.20 % LYMPH % (test code = 736-9) 29.9 % MONO % (test code = 5905-5) 8.6 % EOS % (test code = 713-8) 2.7 % BASO % (test code = 706-2) 1.0 % GRAN MAT x10^3(ANC) (test code = 9905482926) 5.43 10*3/uL 1.88-7.09 IMM GRAN x10^3 (test code = 5332659616) 0.00-0.06 LYMPH x10^3 (test code = 731-0) 2.81 10*3/uL 1.32-3.29 MONO x10^3 (test code = 742-7) 0.81 10*3/uL 0.33-0.92 EOS x10^3 (test code = 711-2) 0.25 10*3/uL 0.03-0.39 BASO x10^3 (test code = 704-7) 0.09 10*3/uL 0.01-0.07 H Lab Interpretation (test code = 20055-7) Abnormal [facility] AHJI2092-06-77 16:47:00* Test Item Value Reference Range Interpretation Comme nts POCT PREG (test code = 1605) Negative On board controls acceptable with C Line (test code = 3574) Yes POCT PREG LOT # (test code = 3575) POCT PREG TEST DATE ( test code = 3576) [facility] BUID3530-08-81 16:47:00* Test Item Value Reference Range Interpretation Comme nts POCT PREG (test code = 1605) Negative On board controls acceptable with C Line (test code = 3574) Yes POCT PREG LOT # (test code = 3575) POCT PREG TEST DATE ( test code = 3576) [facility] WRXM3718-58-40 04:35:00* Test Item Value Reference Range Interpretation Comme nts POCT PREG (test code = 1605) negative On board controls acceptable with C Line (test code = 3574) present POCT PREG LOT # (test code = 3575) [id number] POCT PREG TEST DATE ( test code = 3576) 2023-11-25 Lab Interpretation (test cod e = 98427-1) [facility]* Test Item Value Reference Range Interpretation Comme nts SURGICAL (test code = SR) R UN DATE: 01/17/22 [facility] PAGE 1 RUN TIME: 1221 Specimen Inquiry RUN USER: INTERFACE P ATIENT: KATRIN PEREZ LOC: [facility] U #: [id number] AGE/SX: 16/F ROOM: RE01/06/22REG DR: Facundo Kwon MD : 03 BED: DIS: STATUS: [facility] TLOC: SPEC #: [id number] RECD: 01/09/22 STATUS: [facility] #: [id number] KI: 01/06/22-[address] [place] [address] DR: Facundo Kwon MD ENTERED: 01/09/22 SP TYPE: SURGICAL OTHR DR: DOES_NOT KNOW ORDERED: 00971/2, 87767, ANATOMIC SPEC COPIES TO: DOES_NOT KNOW Facundo Kwon MD [address] [place] [address] PROCEDURES: 04144 (01/09/22-715) 02441 (01/10/22-163) TISSUES: A. DUODENUM BIOPSY B. STOMACH BIOPSY/POLYP [...] ON NEXT PAGE R UN DATE: 01/17/22 [facility] PAGE 2 RUN TIME: 1221 Specimen Inquiry RUN USER: INTERFACE S PEC #: [id number] PATIENT: KATRIN PEREZ #[id number] (Continued) GROSS DESCRIPTION (Continued) Technical component excluding immunohistochemistry is performed at [facility], [address] [facility] [place] [address] Technical component of all immunohistochemistry is performed at [facility], [address] [place] [address], [address], [facility] [place] [address] Immunohistochemistry: This test was developed and its [...] 01/17/22 1221 END OF REPORT UR HCG CFDI0199-30-90 12:02:00* Test Item Value Reference Range Interpretation Comme nts UR HCG QUAL (test code = HCGQLU) NEGATIVE This HCGQL test is NOT applicable for MALE patients.Check with nurse about probable order error.If Tumor Marker Test needed, nurse should order test "HCGTU"(Test #550.17861) Notes Date/Time Note Provider Source 2023-10-26 23:53:53 +L2ms0Yu9/mi10oY0NKc hFxr4YK35FUZr3u Ywk7J3Kv6k7zG8cYlhEpoJzUytpIO4050-2 3:53:53 Pt discharged home following ERP eval. Pt given all education and information regarding s/s of worsening condition, the importance of follow up and prescription use and purpose. Pt verbalized understanding. Alert and ambulatory to pov with family. [address]-[address] EywlUT5174-50-09H98:55:08[facility] NoteTXT1.2.840.502595.1.13.104.2.7. 2.430483|[id number] for patient adlz82888-0MysnYWMTDMCNVDWBjwfchqui C-CDA narrative [id number] A Paul RN[id number] 8OXQAASUJAVXSGFKHKRHQNY9607-69-14J7 3:55:081.2.840.959018.1.72.3.15|1.2 .840.714119.1.13.104.2.7.2.727879_2 [id number] Charlie Romero RN [facility] 2023-10-26 21:57:03 VcwXaz8IQQgz89zG5KE1 NYqcB4t7/A56fOx vsVzklz9THmhYjYETM0q2lwapJLwi1111-9 10-25T21:57:03 Pt given urine cup and placed in the lobby, pt advice to notify nurse with any other concerns or if symptoms worsen. [address] HbqmAH5532-13-41C45:57:12[facility] NoteTXT1.2.840.903160.1.13.104.2.7. 2.124740|[id number] for patient gvib66965-0OpikCGCDCSGLIFHKmycugxit C-CDA narrative text[id number] 6EJJSTNEQVXSOBMDMPWXBSK6679-87-07P1 1:57:121.2.840.314358.1.72.3.15|1.2 .840.533541.1.13.104.2.7.2.727879_2 [id number] [facility] 2023-10-26 21:53:04 MXZHlckhkfzaEykiBR3D L3hLhQxGL3dplq+ OU5wnpzXUaPUslq+LbDsS36e7JAlS4516-9 10-25T21:53:04 Vaginal bleeding that started today with clots, pt states that she has used 4 pads. Pt c/o lower pelvic and lower back pain. Pt states LMP: 10/13/2023 41221-1Erebzietu department Triage uzosIY5353-59-20E52:54:20[facility] Triage noteTXT1.2.840.953201.1.13.104.2.7. 2.932101|[id number] for patient rili26352-4Ytyjupusc department NoteLNNARRATIVEFormatted C-CDA narrative [id number] J Hoot RN[address] XspiOaznlnufzPwglavavbDYNZ347593409 8IFUHWBNSCEMTDJQSBNDEDO8036-25-47Y7 1:54:201.2.840.877105.1.72.3.15|1.2 .840.238526.1.13.104.2.7.2.727879_2 [id number] Cassandra Nassar RN [facility] 2023-09-20 23:01:05 TLoC0P7tImSurxHACoDg U0pIhkXjBwwxMpn pvXMQC9vl9wGPtj736Cc0o/Tn8YiJ3405-9 09-20T23:01:05 Pt given printed and verbal discharge instructions regarding lymphadenitisPrescriptions providedDiscussed antibiotic therapy and to take until all completed unless adverse reaction occurs - if occurs, discontinue medication and follow up with pcp/seek medical attentionPt verbalized understanding of instructions, pt awake alert oriented, resp reg unlabored, skin w/d, color appropriate for race, moves all ext well,pt encouraged to follow up with pcpAdvised to seek medical attention for new/prolonged/worsening of symptomsNo adverse reaction to meds given in ER noted upon dischargeAwake, alert oriented, resp reg unlabored, skin w/d, pt leaving amb with steady gait, in no apparent distress 04506-3Okzaardvi department SuzaUD5297-70-67J62:01:44Emergency department NoteTXT1.2.840.055833.1.13.104.2.7. 2.124180|[id number] for patient gmzu81430-4MwpxKANPEUYAUVJPhyxwgnyw C-CDA narrative spts161571322Swrepyu A Diaz RNUT[address] QdywYhafqnfytVcwaljypxEIFU280593713 8QPAWHIVUNHSHGPXTMAAXQO1613-44-90J6 3:01:441.2.840.567190.1.72.3.15|1.2 .840.487788.1.13.104.2.7.2.727879_2 [id number] Sulema Leger RN [facility] 2023-09-20 22:13:39 1Dlc29GOvU1qBahL6kCI xVeJPzEWSIhtnGt zHH5cvbkFFtFooyQhsVigNDCD3UnM9806-7 09-20T22:13:39 Pt arrives ambulatory to ED reporting that her lymph nodes are swollen and has been since she was here last time. After review pt was seen here 07/16/2023. She also wanted to be checked for all STD's. 60685-5Qatrjgoay department Triage bhvgPL6124-89-29N62:15:12[facility] Triage noteTXT1.2.840.620704.1.13.104.2.7. 2.684823|[id number] for patient cpzm93972-5Zemgmbygy department NoteLNNARRATIVEFormatted C-CDA narrative [id number] L Williams RNUT[address] CbdhTzqzbrrwzReojttuekIIZK030933673 5GJFNIEFXVORAJUUZWVVFWW6661-89-63S6 2:15:121.2.840.780458.1.72.3.15|1.2 .840.365206.1.13.104.2.7.2.727879_2 [id number] Heidi Hall RN [facility] 2022-01-06 15:10:00 [id number]+ nWWemfvz/Lu6ql3 4HNdSYDgraRLGa0+2djlRQ8JRLb3NJW0hnF ckCH1E0131-39-24T64:10:00 [facility]Post Anesthesia EvaluationREPORT#:[id number] REPORT STATUS: SignedDATE:01/06/22 TIME: 1510 PATIENT: KATRIN PEREZ UNIT #: [id number]#: [id number] ROOM/BED:: 03 AGE: 16 SEX: F ATTEND: Facundo Kwon AUTHOR: James Conrad MD * ALL edits or amendments must be made on the electronic/computer document * Post Anesthesia Evaluation Anes. changes from pre-op evalORM Surgeries: Surgery Date and Time: 01/06/2022 1040 Proposed Primary Procedure: ESOPHAGOGASTRODUODENOSCOPY Anesthetic: TIVADate: 01/06/22Level of consciousness: patient awake, able to answer questions, participate in this eval.Vital signs:Last Documented: Result Date Time Pulse Ox 100 01/06 1413 B/P 121/73 01/06 141 O2 Delivery Room air 01/06 1413 Temp 36.7 01/06 141 Pulse 87 01/06 141 Resp 16 01/06 141 Cardiovascular: CV system stable, vital signs stableRespiratory/Airway: respiratory system stable, maintains without supportPain: adequately controlledHydration: adequate, euvolemicTemp status: greater than 96.8F, normothermicPresence of N/V: noAnesthesia complications: noOther changes requiring f/u: noneConclusions: no apparent anes. issues, outpts eval prior DC home at 1511 RPT #:[id number] OF REPORTPRProgress gjsv7737-07-75R96:10:00V.CQMX742271 AVAvailable for patient ogpsBVLBQBEFORXTVL1250-38-95J11:12: 08 [facility] 2022-01-06 13:42:00 [id number] CCp7BNOKQ1rNQ7I fhsYsIqEeaEbKKA0Xujo1mdb2Bp5ZLEqA6v RioklA9037-18-47F59:42:047420-9262 [facility] PATIENT NAME: KATRIN PEREZ ADMIT DATE: 01/06/22ACCOUNT NO: [id number] ROOM NO: AGE: 16 REPORT TYPE: ENDOSCOPY REPORT SEX: F DATE OF : [birth year]ADMITTING PHYSICIAN: ATTENDING PHYSICIAN:Facundo Kwon MD Patient Name: Katrin Perez Attending MD: Chelsi Gonzalez Date: 01/06/2022 1:42 PM Number: [id number] Date of : 2005 Procedure: Upper GI endoscopyPre Procedure Diagnosis: Epigastric abdominal pain, Functional DyspepsiaAssistants: Facundo Kwon MDAnesthesia: Monitored Anesthesia Care Procedure: Pre-Anesthesia Assessment: - Prior to the procedure, a History and Physical was performed, and patient medications and allergies were reviewed. The patient's tolerance of previous anesthesia was also reviewed. The risks and benefits of the procedure and the sedation options and risks were discussed with the patient. All questions were answered, and informed consent was obtained. Prior Anticoagulants: The patient has taken no anticoagulant or antiplatelet agents. ASA Grade Assessment: I - A normal, healthy patient. After reviewing the risks and benefits, the patient was deemed in satisfactory condition to undergo the procedure. The benefits, risks, and alternatives to the procedure were discussed and informed consent was obtained from the patient. I've assesed the patient on this date and reviewed the medical history, drug history, and previous anesthesia experience. After obtaining informed consent, the scope was passed under direct vision. Throughout the procedure, the patient's blood pressure, pulse, and oxygen saturations were monitored continuously.s were monitored continuously. The Endoscope was introduced through the mouth, and advanced to the second part of duodenum. The upper GI endoscopy was accomplished without difficulty. The patient tolerated the procedure well.Post Procedure Findings: The examined esophagus was normal. The entire examined stomach was normal. Biopsies were taken with a cold forceps for histology. Patchy mild inflammation characterized by PATIENT NAME: KATRIN PEREZ congestion (edema) and erythema was found in the duodenal bulb. Biopsies were taken with a cold forceps for histology. The second portion of the duodenum was normal. Biopsies were taken with a cold forceps for histology.Complications: No immediate complications.Estimated Blood Loss: Estimated blood loss was minimal.Post Procedure Diagnosis: - Normal esophagus. - Normal stomach. Biopsied. - Duodenitis. Biopsied. - Normal second portion of the duodenum. Biopsied.Recommendation: - Patient has a contact number available for emergencies. The signs and symptoms of potential delayed complications were discussed with the patient. [...] my office in 2 weeks. Facundo Kwon MD01/06/2022 1:58:50 PMThis report has been signed electronically.Number of Addenda: 0 Note Initiated On: 01/06/2022 1:42 PMProcedure Code(s): --- Professional --- 80010, Esophagogastroduodenoscopy, flexible, transoral; with biopsy, single or multipleDiagnosis Code(s): --- Professional --- K29.80, Duodenitis without bleeding R10.13, Epigastric pain K30, Functional dyspepsia CPT copyright 2020 [employer]. All rights reserved. The codes documented in this report are preliminary and upon tank house operator helper review may be revised to meet current compliance requirements.Scope In:Scope Out:Provation {[id number]}. pdf ProVation FT PDF PATIENT NAME: KATRIN PEREZ at 1359 PATIENT NAME: KATRIN PEREZ awbqpbq7192-56-66K38:59:00V.PGO3923 0513-0114AVAvailable for patient aqdvORSUYZANGIBPKO1521-07-56X86:59: 17 [facility]
[2023-12-28 02:13] LABS: Specific Gravity 1.024 (1.005-1.030)
[2023-12-28 02:16] LABS: Urine Bacteria None Seen /HPF (<20); Urine Culture Reflex Order REFLEXED; Urine Micro Reflex YN NO BILL MICROSCOPIC; Urine Mucus Slight /HPF (None Seen); Urine WBC >50 /HPF (<5)
--- NOTE | 2023-12-28 03:08 | ER ---
Nurse's Notes [facility] Name: Lizzie Chase Age: 18 yrs Sex: Female : 2005 Arrival Date: 12/28/2023 Time: 01:00 Bed 14 Private MD: Diagnosis: Encounter for examination and observation for unspecified reason Presentation: 12/27 01:21 Chief complaint: Patient states: Discharge from belly button onset yesterday. Pt states cm10 that she is also having pain. pt reports the discharge had a foul smell. Pt denies fevers. Coronavirus screen: Client denies travel out of the [place] in the last 14 days. At this time, the client does not indicate any symptoms associated with coronavirus-19. Ebola Screen: Patient denies travel to an Ebola-affected area in the 21 days before illness onset. No symptoms or risks identified at this time. Initial Sepsis Screen: Does the patient meet any 2 criteria? No. Patient's initial sepsis screen is negative. Does the patient have a suspected source of infection? No. Patient's initial sepsis screen is negative. Risk Assessment: Do you want to hurt yourself or someone else? Patient reports no desire to harm self or others. Onset of symptoms was December 28, 2023. 01:21 Method Of Arrival: Ambulatory cm10 01:21 Acuity: NACHO 4 cm10 Triage Assessment: 01:23 General: Appears in no apparent distress. comfortable, Behavior is calm, cooperative. cm10 Pain: Complains of pain in umbilical area Pain currently is 9 out of 10 on a pain scale. Neuro: No deficits noted. Level of Consciousness is awake, alert, obeys commands, Oriented to person, place, time, situation. Respiratory: No deficits noted. Airway is patent Respiratory effort is even, unlabored, Respiratory pattern is regular, symmetrical. Historical: - Allergies: 01: No Known Allergies; cm10 - Home Meds: : None [Active]; cm10 - PMHx: : None; cm10 - PSHx: 01:23 Knee surgery; cm10 - Immunization history:: Adult Immunizations up to date. - Infectious Disease History:: Denies. - Social history:: Smoking status: unknown. Screenin:06 [facility] ED Fall Risk Assessment (Adult) History of falling in the last 3 months, jb4 including since admission No falls in past 3 months (0 pts) Confusion or Disorientation No (0 pts) Intoxicated or Sedated No (0 pts) Impaired Gait No (0 pts) Mobility Assist Device Used No (0 pt) Altered Elimination No (0 pt) Score/Fall Risk Level 0 - 2 = Low Risk Oriented to surroundings, Maintained a safe environment. Abuse screen: Denies threats or abuse. Nutritional screening: No deficits noted. Tuberculosis screening: No symptoms or risk factors identified. Assessment: 01:30 General: Appears in no apparent distress. comfortable, Behavior is calm, cooperative, jb4 appropriate for age. Pain: Complains of pain in umbilical area Pain does not radiate. Pain currently is 9 out of 10 on a pain scale. Neuro: Level of Consciousness is awake, alert, obeys commands, Oriented to person, place, time, situation. Cardiovascular: Patient's skin is warm and dry. Respiratory: Airway is patent Respiratory effort is even, labored, Respiratory pattern is regular, symmetrical. GI: Abdomen is flat, non-distended, Reports white discharge from the umbilical area. : No signs and/or symptoms were reported regarding the genitourinary system. EENT: No signs and/or symptoms were reported regarding the EENT system. Derm: Skin is intact, Skin is pink, warm \T\ dry. 02:29 Reassessment: Patient appears in no apparent distress at this time. Patient and/or tm6 family updated on plan of care and expected duration. Pain level reassessed. Patient is alert, oriented x 3, equal unlabored respirations, skin warm/dry/pink. 03:19 Reassessment: Patient appears in no apparent distress at this time. Patient and/or tm6 family updated on plan of care and expected duration. Pain level reassessed. Patient is alert, oriented x 3, equal unlabored respirations, skin warm/dry/pink. Vital Signs: 01:21 BP 115 / 76; Pulse 79; Resp 16; Temp 97.9(O); Pulse Ox 100% on R/A; Weight 73.5 kg; cm10 Height 5 ft. 0 in. ; Pain 9/10; 02:28 Pulse 89; Pulse Ox 99% on R/A; Pain 0/10; tm6 03:19 BP 118 / 74; Pulse 82; Resp 17; Temp 97.7(TE); Pulse Ox 99% on R/A; Pain 0/10; tm6 01:21 Body Mass Index 31.65 (73.50 kg, 152.4 cm) cm10 01:21 Pain Scale: Adult cm10 02:28 Pain Scale: Adult tm6 03:19 Pain Scale: Adult tm6 ED Course: 01:03 Patient arrived in ED. ra3 01:04 Samuel Bunch PA is PHCP. cp 01:04 Samuel Stewart MD is Attending Physician. cp 01:23 Triage completed. cm10 01:23 Arm band placed on Patient placed in an exam room, on a stretcher. cm10 01:47 US Abdomen Limited In Process Unspecified. EDMS 02:06 Patient has correct armband on for positive identification. Bed in low position. Call jb4 light in reach. Side rails up X 1. Provided Education on: plan of care. 02:06 No provider procedures requiring assistance completed. Patient did not have IV access jb4 during this emergency room visit. 02:28 Gina Burns, RADHA is Primary Nurse. tm6 Administered Medications: No medications were administered Medication: 02:29 VIS not applicable for this client. tm6 Outcome: 03:07 Discharge ordered by MD. cp 03:19 Discharged to home ambulatory, tm6 03:19 Condition: stable 03:19 Discharge instructions given to patient, Instructed on discharge instructions, follow up and referral plans. medication usage, Demonstrated understanding of instructions, follow-up care, medications, Prescriptions given X 1, 03:20 Patient left the ED. tm6 Signatures: Dispatcher [employer] EDNC Samuel Bunch PA PA cp Bryson, James, RN RN jb4 Lavern Brumfield RN RN cm10 Gina Burns RN RN tm6 Gabriela Bloom ra3 Corrections: (The following items were deleted from the chart) 02:09 01:30 Pain: Complains of pain in umbilical area Pain does not radiate. Pain currently jb4 is 4 out of 10 on a pain scale. jb4
--- NOTE | 2023-12-28 03:08 | EDPHYS ---
Physician Documentation [facility] Name: Lizzie Chase Age: 18 yrs Sex: Female : 2005 Arrival Date: 12/28/2023 Time: 01:00 Bed 14 Private MD: [email or web address] Physician Samuel Stewart HPI: 12/27 01:23 This 18 yrs old Female presents to ER via Unassigned with complaints of cp discharge from belly button. 01:23 The patient presents with abdominal pain umbilical drainage from umbilical area. Onset: cp The symptoms/episode began/occurred today. The symptoms do not radiate. Associated signs and symptoms: Pertinent negatives: diarrhea, fever, vomiting. The symptoms are described as dull. : patient reports discharge appeared clear/white, had odor. cp Historical: - Allergies: : No Known Allergies; cm10 - Home Meds: : None [Active]; cm10 - PMHx: : None; cm10 - PSHx: : Knee surgery; cm10 - Immunization history:: Adult Immunizations up to date. - Infectious Disease History:: Denies. - Social history:: Smoking status: unknown. ROS: 01:25 Constitutional: Negative for body aches, chills, fever, poor PO intake, cp 01:25 Cardiovascular: Negative for chest pain, :25 Respiratory: Negative for cough, shortness of breath, wheezing, 01:25 Abdomen/GI: Positive for abdominal pain, of the umbilical area, drainage from umbilical area, Negative for vomiting, diarrhea, constipation, anorexia, 01:25 Skin: Positive for :25 Neuro: Negative for altered mental status, dizziness, headache, weakness, 01:25 All other systems are negative, cp Exam: 01:30 Constitutional: The patient appears in no acute distress, alert, awake, comfortable, cp non-toxic, well developed, well nourished, 01:30 Head/Face: Normocephalic, atraumatic. cp 01:30 Eyes: Periorbital structures: appear normal, Conjunctiva: normal, no exudate, no injection, Sclera: no appreciated abnormality, Lids and lashes: appear normal, bilaterally, 01:30 ENT: External ear(s): are unremarkable, Nose: is normal, Mouth: Lips: moist, Posterior pharynx: Airway: no evidence of obstruction, patent, 01:30 Chest/axilla: Inspection: normal, 01:30 Cardiovascular: Rate: normal, 01:30 Respiratory: the patient does not display signs of respiratory distress, Respirations: normal, no use of accessory muscles, no retractions, 01:30 Abdomen/GI: Inspection: abdomen appears normal, Bowel sounds: active, all quadrants, Palpation: soft, in all quadrants, mild abdominal tenderness, in the umbilical area, no swelling, minimal erythema, no drainage expressed, Vital Signs: 01:21 BP 115 / 76; Pulse 79; Resp 16; Temp 97.9(O); Pulse Ox 100% on R/A; Weight 73.5 kg; cm10 Height 5 ft. 0 in. ; Pain 9/10; 02:28 Pulse 89; Pulse Ox 99% on R/A; Pain 0/10; tm6 03:19 BP 118 / 74; Pulse 82; Resp 17; Temp 97.7(TE); Pulse Ox 99% on R/A; Pain 0/10; tm6 01:21 Body Mass Index 31.65 (73.50 kg, 152.4 cm) cm10 01:21 Pain Scale: Adult cm10 02:28 Pain Scale: Adult tm6 03:19 Pain Scale: Adult tm6 MDM: 01:08 Patient medically screened. cp 03:06 Data reviewed: vital signs, nurses notes, radiologic studies, ultrasound, and as a cp result, I will discharge patient. 03:06 Differential diagnosis: cellulitis, abscess, hernia. Counseling: I had a detailed cp discussion with the patient and/or guardian regarding the historical points, exam findings, and any diagnostic results supporting the discharge/admit diagnosis, radiology results, to return to the emergency department if symptoms worsen or persist or if there are any questions or concerns that arise at home. Response to treatment: the patient's symptoms have mildly improved after treatment, and as a result, I will discharge patient. 12/27 01:22 Order name: Urine Microscopic Only cp 12/27 01:22 Order name: Test, Urine cp 12/27 01:22 Order name: US Abdomen Limited cp Administered Medications: No medications were administered Disposition Summary: 12/28/23 03:07 Discharge Ordered Notes: Location: Home cp Problem: new cp Symptoms: have improved cp Condition: Stable cp Diagnosis - Encounter for examination and observation for unspecified reason cp Followup: cp - With: Private Physician - When: 2 - 3 days - Reason: Worsening of condition Discharge Instructions: - Discharge Summary Sheet cp - Form - Excuse from Work, School, or Physical Activity cp Forms: - Medication Reconciliation Form cp - Antibiotic Education cp - Prescription Opioid Use cp - Patient Portal Instructions cp - Leadership Thank You Letter cp Prescriptions: - Cephalexin 500 mg Oral Capsule - take 1 capsule ORAL route every 8 hours for 10 days; 30 capsule; Refills: 0, cp Product Selection Permitted Signatures: Dispatcher [employer] EDMD Samuel Bunch PA PA cp Lavern Brumfield, RN RN cm10 Corrections: (The following items were deleted from the chart) 01:22 Urine Microscopic+U.LAB.BRZ ordered. [facility] 01:22 Test, Urine+UC.LAB.BRZ ordered. [facility] 12/28 00: 00:50 Skin: Positive for cp cp 00: 00:50 Abdomen/GI: Positive for abdominal pain, of the umbilical area, drainage from cp umbilical area, Negative for vomiting, diarrhea, constipation, anorexia, cp : 00:50 Constitutional: Negative for body aches, chills, fever, poor PO intake, cp cp 00: 00:50 Cardiovascular: Negative for chest pain, cp cp 00: 00:50 Respiratory: Negative for cough, shortness of breath, wheezing, cp cp 00: 00:50 Neuro: Negative for altered mental status, dizziness, headache, weakness, cp cp
[2023-12-29 14:32] VITALS: BP 118/74; TEMP 97.7; O2SAT 99
--- NOTE | 2023-12-29 14:33 | RAD REPORT ---
EXAM DESCRIPTION: Abdomen Exam Limited RadLex: US ABDOMEN LIMITED CLINICAL HISTORY: 18 years Female; pain and drainage from umbilical area TECHNIQUE: Abdominal ultrasound was performed. COMPARISON: None. FINDINGS: Gallbladder is contracted, limiting evaluation. No discrete stones. Correlate measures 3 mm. No focal sonographic abnormality at the umbilical region. IMPRESSION: 1. Contracted gallbladder limiting evaluation. No discrete gallstones. No sonographic evidence of acute cholecystitis. 2. No focal sonographic abnormality at the umbilical region. Electronically signed by: Thuy Sanchez MD 12/28/2023 03:20 AM CDT Due to temporary technical issues with the PACS/Fluency reporting system, reports are being signed by the in house radiologists without review as a courtesy to insure prompt reporting. The interpreting radiologist is fully responsible for the content of the report.
== END 2023-12-28 03:20 | disposition home or self-care (01) ==
LOC: ER 01:00
DX: Z71.1 Person with feared health complaint in whom no diagnosis is made (principal)
CPT/HCPCS: 76705; 81015; 81025; 87086; 87088; 99283

== ENCOUNTER 2024-01-18 03:28 | Emergency (ER) | payer OTHER ==
--- OUTSIDE RECORDS SUMMARY | 2024-01-18 03:33 | XMS REPORT | Continuity of Care Document ---
Author Name Unknown Address [address] [facility] [place] [address] [facility] thconnect Address [address] [facility] [address] [place] [address] Care Team Providers Care Surgical Rn Name Role Phone LIDIA PHELAN Primary Care Physician Vannesa mikelilaLES Trammell Attending Clinician UnavailALAN Wang Attending Clinician Unavailable GERARD NOBLES Attending Clinician Unavailable Gerard Suazo Attending Clinician [phone] CATRACHITA NGUYEN Attending Clinician Unavail able Doctor Unassigned, [place] Attending Clinician U ROBERTO Alegria Attending Clinician Unavailable Roberto Griffith MD Attending Clinician [phone] Sandi Cardozo NP Attending Clinician [phone] VIANEY GARCIA Attending Clinician Unavailable FAROOQ DAVIS Attending Clinician Unavailable Farooq Barnett Attending Clinician [phone] Unknown, Attending Attending Clinician Unavailab JOYCE Kumar Attending Clinician Unavaila Joyce Hinds CNM Attending Clinician WENDY JANE Attending Clinician Unavaila WENDY Fowler Attending Clinician Unavaila ALEXIS Monae S Attending Clinician Unavailable Andres PAC, Alexis S Attending Clinician [phone] ANNABELLE JO Attending Clinician Unavailable BANDAR CASTILLO Attending Clinician Unavailable Bandar Castillo MD Attending Clinician [phone] Facundo Kwon Attending Clinician Unavailable Jacques DORAN, Mayra Tony Attending Clinician + [phone] MAYRA SAAVEDRA Attending Clinician Unavailab RENETTA Lam S Attending Clinician Unavailable Renetta Clark S Attending Clinician [phone] , [facility] Attending Clinician Unavailable Annabelle Jo PA-C Attending Clinician [phone] Nurse, [facility] Attending Clinician Un available Vianey Garcia MD Attending Clinician [phone] Samanta Petty MD Attending Clinician [phone] Teri RN, Lucrecia M Attending Clinician Unavailable Belinda Hall DO Attending Clinician [phone] Les Huggins MD Attending Clinician [phone] Lab, [facility] Attending Clinician Unavailab Page Gorman Attending Clinician [phone] PAGE RED Attending Clinician Unavailable PANKAJ REESE Attending Clinician UnavailMariaa Mccormack NP Attending Clinician [phone] MARIAA RAE Attending Clinician Unavailable LES HUGGINS Admitting Clinician UnavailSANDI Vaughan Admitting Clinician Unavailable KNOW, DOES_NOT Admitting Clinician Unavailable Les Huggins MD Admitting Clinician [phone] BELINDA HALL Admitting Clinician Unavailab niko Payers Payer Name Policy Type Policy Number Effective Date Expirati on Date Source [facility] [id number] 00:00:00 [facility] SHAYLA PANIAGUA COPAY FOCUS 9 [id number] 2023 00:00:00 [employer] [id number] 2023 00:00:00 Problems Condition Name Condition Details Condition Category Status Onset Date Resolution Date Last Treatment Date Treating Clinician Comments Source Obesity (BMI 30-39.9) Obesity (BMI 30-39.9) Disease Active 12-30 00:00: 00 [facility] Encounter for other general counseling or advice on contracept ion Encounter for other general counseling or advice on contracept ion Disease Active 12-29 00:00: 00 [facility] BMI 29.0-29.9, adult BMI 29.0-29.9, adult Disease Active 12-29 00:00: 00 [facility] BMI 29.0-29.9, adult BMI 29.0-29.9, adult Disease Active 12-29 00:00: 00 [facility] Menorrhagi a with irregular cycle Menorrhagi a with irregular cycle Disease Active 11-09 00:00: 00 [facility] Vitamin D deficiency Vitamin D deficiency Disease Active 11-09 00:00: 00 [facility] Depo-Prove ra contracept kamran status Depo-Prove ra contracept kamran status Disease Active 11-09 00:00: 00 [facility] Acute medial meniscus tear, left, subsequent encounter Acute medial meniscus tear, left, subsequent encounter Disease Active -22 00:00: 00 Overview: Formattin g of this note might be different from the original. Added automatic ally from request for surgery [id number] [facility] Allergies, Adverse Reactions, Alerts Allergy Name Allergy Type Status Severity Reaction(s) Onset Date Inactive Date Treating Clinician Comments Source No Known Allergie s DA Active U 01-06 00:00: 00 [facility] NO KNOWN ALLERGIE S Drug Class Active [facility] Social History Social Habit Start Date Stop Date Quantity Comments Source Gender identity [facility] SD[facility] Alcohol Comment Frannie o f [facility] Alcohol intake 2023-10-26 00:00:00 2023-10-26 00:00:00 Lifetime non-drinker (finding) [facility] Exposure to SARS-CoV-2 (event) 2022-12-26 00:00:00 2023-01-05 08:00:00 Not sure [facility] Tobacco use and exposure 2022-12-27 00:00:00 2022-12-27 00:00:00 Smokeless tobacco non-user [facility] History of Social function 2022-12-27 00:00:00 2022-12-27 00:00:00 [facility] History SDOH Alcohol Frequency 2020-04-05 00:00:00 2020-04-05 00:00:00 1 [facility] History SDOH Alcohol Std Drinks 2020-04-05 00:00:00 2020-04-05 00:00:00 99 [facility] History SDOH Alcohol Binge 2020-04-05 00:00:00 2020-04-05 00:00:00 1 [facility] Sex Assigned At 2003 00:00:00 2003 00:00:00 [facility] Smoking Status Start Date Stop Date Source Never smoked tobacco [facility] Medications Ordered Medication Name Filled Medication Name Start Date Stop Date Current Medication? Ordering Clinician Indication Dosage Frequency Signature (SIG) Comments Components Source ketorolac (TORADOL) injection 30 mg 10-26 06:00: 00 10-26 05:23 :00 No 30mg 30 mg, Slow IV Push, ONCE, 1 dose, On Sun10/27/23 at 0000, Routine [facility] cefTRIAXone (ROCEPHIN) 1,000 mg in NaCl 0.9% (NS) 100 mL MINI-BAG 10-26 05:15: 00 10-26 05:52 :00 No 1000mg 1,000 mg, IV Piggyback, ONCE, 1 dose, On Sun10/26/23 at 2315, Administer over 30 Minutes, 100 mL
Reas on for Anti-Infec tive: Documented Infection< br>Documen christiano Infection Site: Urine
D uration of Therapy: Other (see Comments) [facility] cefdinir 300 mg capsule 10-25 00:00: 11-02 05:59 :00 Yes [id number] 300mg Take 1 capsule by mouth in the morning and 1 capsule in the evening. Do all this for 7 days. [facility] methylPREDN ISolone 4 mg tablets 09-20 00:00: 00 Yes [id number] Take by mouth SEE-INSTRU CTIONS. follow package directions [facility] amoxicillin -clavulanat e 875-125 mg per tablet 09-20 00:00: 00 Yes [id number] 1{tbl} Take 1 tablet by mouth every 12 (twelve) hours. [facility] iopamidol (ISOVUE 370-500 mL) injection 100 mL 2022-08 03:30: 00 07-17 03:30 :00 No [id number] 100mL 100 mL, Intravenou s, ONCE, 1 dose, On Sun07/16/23 at 2130, Routine [facility] methylPREDN ISolone 4 mg tablets 2022-08 00:00: 00 Yes [id number] Take by mouth SEE-INSTRU CTIONS. follow package directions [facility] clindamycin 300 mg capsule 2022-08 00:00: 00 07-27 05:59 :00 No [id number] 300mg Take 1 capsule by mouth 4 (four) times daily for 10 days. [facility] cefdinir 300 mg capsule 05-17 00:00: 00 05-28 04:59 :00 No [id number] 600mg Take 2 capsules by mouth in the morning for 10 days. [facility] acetaminoph en (TYLENOL) tablet 650 mg 01-05 13:15: 00 01-05 13:14 :00 No 650mg 650 mg, Oral, ONCE, 1 dose, On Sun01/05/23 at 0815, ALLI [facility] amoxicillin 500 mg capsule 01-05 00:00: 00 Yes [id number] 500mg Take 1 capsule by mouth in the morning and 1 capsule at noon and 1 capsule in the evening. [facility] ondansetron 4 mg disintegrat ing tablet 01-05 00:00: 00 Yes [id number] 4mg Take 1 tablet by mouth every 4 (four) hours as needed for Nausea and Vomiting (N/V). [facility] naproxen 500 mg tablet 01-05 00:00: 00 01-16 04:59 :00 No [id number] 500mg Take 1 tablet by mouth in the morning and 1 tablet in the evening. Take with meals. Do all this for 10 days. [facility] norethindro ne-e.estrad ioL-iron (MICROGESTI N FE) 1.5 mg-30 mcg (21)/75 mg (7) per tablet 12-27 00:00: 00 Yes [id number] 1{tbl} Take 1 tablet by mouth in the morning. [facility] naproxen (NAPROSYN) 500 mg tablet 09-27 00:00: 00 12-27 00:00 :00 No [id number] 500mg Take 1 tablet by mouth in the morning and 1 tablet in the evening. Take with meals. [facility] ibuprofen (IBU) tablet 800 mg 09-25 04:30: 00 09-25 04:33 :00 No 800mg 800 mg, Oral, ONCE, 1 dose, On 09/24/22 at 2230, ALLI [facility] No known medications 12-29 16:08: 37 No [facility] pantoprazol e 40 mg EC tablet 4-11 00:00: 00 12-29 00:00 :00 No 40mg Take 40 mg by mouth daily. [facility] metroNIDAZO LE 500 mg tablet -23 00:00: 00 12-29 00:00 :00 No [id number] 500mg Take 1 tablet by mouth every 12 (twelve) hours. [facility] ergocalcife rol, vitamin d2, 1,250 mcg (50,000 unit) capsule 1-15 00:00: 00 12-29 00:00 :00 No [id number] 82909T Take 1 capsule by mouth weekly. [facility] ranitidine (ZANTAC) 150 mg tablet 2017- 2- 00:00: 00 12-29 00:00 :00 No 150mg Take 1 tablet by mouth 2 (two) times daily. Follow up with your MD for further evaluation and treatment. [facility] Immunizations Ordered Immunization Name Filled Immunization Name Date Status Comments Source [facility] 2022-12-27 00:00:00 Completed [place] [id number] 2022-12-27 00:00:00 Completed [place] [address] 2022-12-27 00:00:00 Completed [place] [address] 2022-12-27 00:00:00 Completed [facility] Meningococcal Polysaccharide (groups A, C, Y and W-135) conjugate vaccine (MCV4P) 2020-03-30 00:00:00 Completed [facility] Meningococcal Polysaccharide (groups A, C, Y and W-135) conjugate vaccine (MCV4P) 2020-03-30 00:00:00 Completed [facility] Meningococcal Polysaccharide (groups A, C, Y and W-135) conjugate vaccine (MCV4P) 2020-03-30 00:00:00 Completed [facility] Meningococcal Polysaccharide (groups A, C, Y and W-135) conjugate vaccine (MCV4P) 2020-03-30 00:00:00 Completed [facility] HPV9 2016-04-17 00:00:00 Completed [facility] Meningococcal Polysaccharide (groups A, C, Y and W-135) conjugate vaccine (MCV4P) 2016-04-17 00:00:00 Completed [facility] TDAP 2016-04-17 00:00:00 Completed [facility] HPV9 2016-04-17 00:00:00 Completed [facility] Meningococcal Polysaccharide (groups A, C, Y and W-135) conjugate vaccine (MCV4P) 2016-04-17 00:00:00 Completed [facility] TDAP 2016-04-17 00:00:00 Completed [facility] HPV9 2016-04-17 00:00:00 Completed [facility] Meningococcal Polysaccharide (groups A, C, Y and W-135) conjugate vaccine (MCV4P) 2016-04-17 00:00:00 Completed [facility] TDAP 2016-04-17 00:00:00 Completed [facility] HPV9 2016-04-17 00:00:00 Completed [facility] Meningococcal Polysaccharide (groups A, C, Y and W-135) conjugate vaccine (MCV4P) 2016-04-17 00:00:00 Completed [facility] TDAP 2016-04-17 00:00:00 Completed [facility] HEPATITIS A 2009-06-30 00:00:00 Completed [facility] Varicella (varivax)(chicken pox) 2009-06-30 00:00:00 Completed [facility] HEPATITIS A 2009-06-30 00:00:00 Completed [facility] Varicella (varivax)(chicken pox) 2009-06-30 00:00:00 Completed [facility] HEPATITIS A 2009-06-30 00:00:00 Completed [facility] Varicella (varivax)(chicken pox) 2009-06-30 00:00:00 Completed [facility] HEPATITIS A 2009-06-30 00:00:00 Completed [facility] Varicella (varivax)(chicken pox) 2009-06-30 00:00:00 Completed [facility] DTaP, Unspecified Formulation 2007-06-10 00:00:00 Completed [facility] HEPATITIS A 2007-06-10 00:00:00 Completed [facility] Hib-HbOC 2007-06-10 00:00:00 Completed [facility] MMR 2007-06-10 00:00:00 Completed [facility] Pneumococcal 7 Conjugate, PCV7 (Prevnar7) 2007-06-10 00:00:00 Completed [facility] IPV 2007-06-10 00:00:00 Completed [facility] DTaP, Unspecified Formulation 2007-06-10 00:00:00 Completed [facility] HEPATITIS A 2007-06-10 00:00:00 Completed [facility] Hib-HbOC 2007-06-10 00:00:00 Completed [facility] MMR 2007-06-10 00:00:00 Completed [facility] Pneumococcal 7 Conjugate, PCV7 (Prevnar7) 2007-06-10 00:00:00 Completed [facility] IPV 2007-06-10 00:00:00 Completed [facility] DTaP, Unspecified Formulation 2007-06-10 00:00:00 Completed [facility] HEPATITIS A 2007-06-10 00:00:00 Completed [facility] Hib-HbOC 2007-06-10 00:00:00 Completed [facility] MMR 2007-06-10 00:00:00 Completed [facility] Pneumococcal 7 Conjugate, PCV7 (Prevnar7) 2007-06-10 00:00:00 Completed [facility] IPV 2007-06-10 00:00:00 Completed [facility] DTaP, Unspecified Formulation 2007-06-10 00:00:00 Completed [facility] HEPATITIS A 2007-06-10 00:00:00 Completed [facility] Hib-HbOC 2007-06-10 00:00:00 Completed [facility] MMR 2007-06-10 00:00:00 Completed [facility] Pneumococcal 7 Conjugate, PCV7 (Prevnar7) 2007-06-10 00:00:00 Completed [facility] IPV 2007-06-10 00:00:00 Completed [facility] DTaP, Unspecified Formulation 2004-03-30 00:00:00 Completed [facility] HIB 4 Dose Schedule 2004-03-30 00:00:00 Completed [facility] MMR 2004-03-30 00:00:00 Completed [facility] IPV 2004-03-30 00:00:00 Completed [facility] Varicella (varivax)(chicken pox) 2004-03-30 00:00:00 Completed [facility] DTaP, Unspecified Formulation 2004-03-30 00:00:00 Completed [facility] HIB 4 Dose Schedule 2004-03-30 00:00:00 Completed [facility] MMR 2004-03-30 00:00:00 Completed [facility] IPV 2004-03-30 00:00:00 Completed [facility] Varicella (varivax)(chicken pox) 2004-03-30 00:00:00 Completed [facility] DTaP, Unspecified Formulation 2004-03-30 00:00:00 Completed [facility] HIB 4 Dose Schedule 2004-03-30 00:00:00 Completed [facility] MMR 2004-03-30 00:00:00 Completed [facility] IPV 2004-03-30 00:00:00 Completed [facility] Varicella (varivax)(chicken pox) 2004-03-30 00:00:00 Completed [facility] DTaP, Unspecified Formulation 2004-03-30 00:00:00 Completed [facility] HIB 4 Dose Schedule 2004-03-30 00:00:00 Completed [facility] MMR 2004-03-30 00:00:00 Completed [facility] IPV 2004-03-30 00:00:00 Completed [facility] Varicella (varivax)(chicken pox) 2004-03-30 00:00:00 Completed [facility] DTaP, Unspecified Formulation 2003 00:00:00 Completed [facility] Hep B, Adol or Pedi Dosage 2003 00:00:00 Completed [facility] HIB 4 Dose Schedule 2003 00:00:00 Completed [facility] Pneumococcal 7 Conjugate, PCV7 (Prevnar7) 2003 00:00:00 Completed [facility] IPV 2003 00:00:00 Completed [facility] DTaP, Unspecified Formulation 2003 00:00:00 Completed [facility] Hep B, Adol or Pedi Dosage 2003 00:00:00 Completed [facility] HIB 4 Dose Schedule 2003 00:00:00 Completed [facility] Pneumococcal 7 Conjugate, PCV7 (Prevnar7) 2003 00:00:00 Completed [facility] IPV 2003 00:00:00 Completed [facility] DTaP, Unspecified Formulation 2003 00:00:00 Completed [facility] Hep B, Adol or Pedi Dosage 2003 00:00:00 Completed [facility] HIB 4 Dose Schedule 2003 00:00:00 Completed [facility] Pneumococcal 7 Conjugate, PCV7 (Prevnar7) 2003 00:00:00 Completed [facility] IPV 2003 00:00:00 Completed [facility] DTaP, Unspecified Formulation 2003 00:00:00 Completed [facility] Hep B, Adol or Pedi Dosage 2003 00:00:00 Completed [facility] HIB 4 Dose Schedule 2003 00:00:00 Completed [facility] Pneumococcal 7 Conjugate, PCV7 (Prevnar7) 2003 00:00:00 Completed [facility] IPV 2003 00:00:00 Completed [facility] DTaP, Unspecified Formulation 2003 00:00:00 Completed [facility] Hep B, Adol or Pedi Dosage 2003 00:00:00 Completed [facility] HIB 4 Dose Schedule 2003 00:00:00 Completed [facility] Pneumococcal 7 Conjugate, PCV7 (Prevnar7) 2003 00:00:00 Completed [facility] IPV 2003 00:00:00 Completed [facility] DTaP, Unspecified Formulation 2003 00:00:00 Completed [facility] Hep B, Adol or Pedi Dosage 2003 00:00:00 Completed [facility] HIB 4 Dose Schedule 2003 00:00:00 Completed [facility] Pneumococcal 7 Conjugate, PCV7 (Prevnar7) 2003 00:00:00 Completed [facility] IPV 2003 00:00:00 Completed [facility] DTaP, Unspecified Formulation 2003 00:00:00 Completed [facility] Hep B, Adol or Pedi Dosage 2003 00:00:00 Completed [facility] HIB 4 Dose Schedule 2003 00:00:00 Completed [facility] Pneumococcal 7 Conjugate, PCV7 (Prevnar7) 2003 00:00:00 Completed [facility] IPV 2003 00:00:00 Completed [facility] DTaP, Unspecified Formulation 2003 00:00:00 Completed [facility] Hep B, Adol or Pedi Dosage 2003 00:00:00 Completed [facility] HIB 4 Dose Schedule 2003 00:00:00 Completed [facility] Pneumococcal 7 Conjugate, PCV7 (Prevnar7) 2003 00:00:00 Completed [facility] IPV 2003 00:00:00 Completed [facility] Hep B, Adol or Pedi Dosage 2003 00:00:00 Completed [facility] Hep B, Adol or Pedi Dosage 2003 00:00:00 Completed [facility] Hep B, Adol or Pedi Dosage 2003 00:00:00 Completed [facility] Hep B, Adol or Pedi Dosage 2003 00:00:00 Completed [facility] DTaP, Unspecified Formulation Unknown Completed [facility] DTaP, Unspecified Formulation Unknown Completed [facility] DTaP, Unspecified Formulation Unknown Completed [facility] DTaP, Unspecified Formulation Unknown Completed [facility] HEPATITIS A Unknown Completed [facility] HEPATITIS A Unknown Completed [facility] Hep B, Adol or Pedi Dosage Unknown Completed [facility] Hep B, Adol or Pedi Dosage Unknown Completed [facility] Hep B, Adol or Pedi Dosage Unknown Completed [facility] Hib-HbOC Unknown Completed [facility] HIB 4 Dose Schedule Unknown Completed [facility] HIB 4 Dose Schedule Unknown Completed [facility] HIB 4 Dose Schedule Unknown Completed [facility] HPV9 Unknown Completed [facility] Meningococcal Polysaccharide (groups A, C, Y and W-135) conjugate vaccine (MCV4P) Unknown Completed [facility] Meningococcal Polysaccharide (groups A, C, Y and W-135) conjugate vaccine (MCV4P) Unknown Completed [facility] MMR Unknown Completed [facility] MMR Unknown Completed [facility] Pneumococcal 7 Conjugate, PCV7 (Prevnar7) Unknown Completed [facility] Pneumococcal 7 Conjugate, PCV7 (Prevnar7) Unknown Completed [facility] Pneumococcal 7 Conjugate, PCV7 (Prevnar7) Unknown Completed [facility] IPV Unknown Completed [facility] IPV Unknown Completed [facility] IPV Unknown Completed [facility] IPV Unknown Completed [facility] Varicella (varivax)(chicken pox) Unknown Completed [facility] Varicella (varivax)(chicken pox) Unknown Completed [facility] TDAP Unknown Completed [facility] HPV9 Unknown Completed [facility] DTaP, Unspecified Formulation Unknown Completed [facility] DTaP, Unspecified Formulation Unknown Completed [facility] DTaP, Unspecified Formulation Unknown Completed [facility] DTaP, Unspecified Formulation Unknown Completed [facility] HEPATITIS A Unknown Completed [facility] HEPATITIS A Unknown Completed [facility] Hep B, Adol or Pedi Dosage Unknown Completed [facility] Hep B, Adol or Pedi Dosage Unknown Completed [facility] Hep B, Adol or Pedi Dosage Unknown Completed [facility] Hib-HbOC Unknown Completed [facility] HIB 4 Dose Schedule Unknown Completed [facility] HIB 4 Dose Schedule Unknown Completed [facility] HIB 4 Dose Schedule Unknown Completed [facility] HPV9 Unknown Completed [facility] Meningococcal Polysaccharide (groups A, C, Y and W-135) conjugate vaccine (MCV4P) Unknown Completed [facility] Meningococcal Polysaccharide (groups A, C, Y and W-135) conjugate vaccine (MCV4P) Unknown Completed [facility] MMR Unknown Completed [facility] MMR Unknown Completed [facility] Pneumococcal 7 Conjugate, PCV7 (Prevnar7) Unknown Completed [facility] Pneumococcal 7 Conjugate, PCV7 (Prevnar7) Unknown Completed [facility] Pneumococcal 7 Conjugate, PCV7 (Prevnar7) Unknown Completed [facility] IPV Unknown Completed [facility] IPV Unknown Completed [facility] IPV Unknown Completed [facility] IPV Unknown Completed [facility] Varicella (varivax)(chicken pox) Unknown Completed [facility] Varicella (varivax)(chicken pox) Unknown Completed [facility] TDAP Unknown Completed [facility] HPV9 Unknown Completed [facility] DTaP, Unspecified Formulation Unknown Completed [facility] DTaP, Unspecified Formulation Unknown Completed [facility] DTaP, Unspecified Formulation Unknown Completed [facility] DTaP, Unspecified Formulation Unknown Completed [facility] HEPATITIS A Unknown Completed [facility] HEPATITIS A Unknown Completed [facility] Hep B, Adol or Pedi Dosage Unknown Completed [facility] Hep B, Adol or Pedi Dosage Unknown Completed [facility] Hep B, Adol or Pedi Dosage Unknown Completed [facility] Hib-HbOC Unknown Completed [facility] HIB 4 Dose Schedule Unknown Completed [facility] HIB 4 Dose Schedule Unknown Completed [facility] HIB 4 Dose Schedule Unknown Completed [facility] HPV9 Unknown Completed [facility] Meningococcal Polysaccharide (groups A, C, Y and W-135) conjugate vaccine (MCV4P) Unknown Completed [facility] Meningococcal Polysaccharide (groups A, C, Y and W-135) conjugate vaccine (MCV4P) Unknown Completed [facility] MMR Unknown Completed [facility] MMR Unknown Completed [facility] Pneumococcal 7 Conjugate, PCV7 (Prevnar7) Unknown Completed [facility] Pneumococcal 7 Conjugate, PCV7 (Prevnar7) Unknown Completed [facility] Pneumococcal 7 Conjugate, PCV7 (Prevnar7) Unknown Completed [facility] IPV Unknown Completed [facility] IPV Unknown Completed [facility] IPV Unknown Completed [facility] IPV Unknown Completed [facility] Varicella (varivax)(chicken pox) Unknown Completed [facility] Varicella (varivax)(chicken pox) Unknown Completed [facility] TDAP Unknown Completed [facility] HPV9 Unknown Completed [facility] DTaP, Unspecified Formulation Unknown Completed [facility] DTaP, Unspecified Formulation Unknown Completed [facility] DTaP, Unspecified Formulation Unknown Completed [facility] DTaP, Unspecified Formulation Unknown Completed [facility] HEPATITIS A [facility] HEPATITIS A Unknown Completed [facility] Hep B, Adol or Pedi Dosage Unknown Completed [facility] Hep B, Adol or Pedi Dosage Unknown Completed [facility] Hep B, Adol or Pedi Dosage Unknown Completed [facility] Hib-HbOC Unknown Completed [facility] HIB 4 Dose Schedule Unknown Completed [facility] HIB 4 Dose Schedule Unknown Completed [facility] HIB 4 Dose Schedule Unknown Completed [facility] HPV9 Unknown Completed [facility] Meningococcal Polysaccharide (groups A, C, Y and W-135) conjugate vaccine (MCV4P) Unknown Completed [facility] Meningococcal Polysaccharide (groups A, C, Y and W-135) conjugate vaccine (MCV4P) Unknown Completed [facility] MMR Unknown Completed [facility] MMR Unknown Completed [facility] Pneumococcal 7 Conjugate, PCV7 (Prevnar7) Unknown Completed [facility] Pneumococcal 7 Conjugate, PCV7 (Prevnar7) Unknown Completed [facility] Pneumococcal 7 Conjugate, PCV7 (Prevnar7) Unknown Completed [facility] IPV Unknown Completed [facility] IPV Unknown Completed [facility] IPV Unknown Completed [facility] IPV Unknown Completed [facility] Varicella (varivax)(chicken pox) Unknown Completed [facility] Varicella (varivax)(chicken pox) Unknown Completed [facility] TDAP Unknown Completed [facility] HPV9 Unknown Completed [facility] DTaP, Unspecified Formulation Unknown Completed [facility] DTaP, Unspecified Formulation Unknown Completed [facility] DTaP, Unspecified Formulation Unknown Completed [facility] DTaP, Unspecified Formulation Unknown Completed [facility] HEPATITIS A Unknown Completed [facility] HEPATITIS A Unknown Completed [facility] Hep B, Adol or Pedi Dosage Unknown Completed [facility] Hep B, Adol or Pedi Dosage Unknown Completed [facility] Hep B, Adol or Pedi Dosage Unknown Completed [facility] Hib-HbOC Unknown Completed [facility] HIB 4 Dose Schedule Unknown Completed [facility] HIB 4 Dose Schedule Unknown Completed [facility] HIB 4 Dose Schedule Unknown Completed [facility] HPV9 Unknown Completed [facility] Meningococcal Polysaccharide (groups A, C, Y and W-135) conjugate vaccine (MCV4P) Unknown Completed [facility] Meningococcal Polysaccharide (groups A, C, Y and W-135) conjugate vaccine (MCV4P) Unknown Completed [facility] MMR Unknown Completed [facility] MMR Unknown Completed [facility] Pneumococcal 7 Conjugate, PCV7 (Prevnar7) Unknown Completed [facility] Pneumococcal 7 Conjugate, PCV7 (Prevnar7) Unknown Completed [facility] Pneumococcal 7 Conjugate, PCV7 (Prevnar7) Unknown Completed [facility] IPV Unknown Completed [facility] IPV Unknown Completed [facility] IPV Unknown Completed [facility] IPV Unknown Completed [facility] Varicella (varivax)(chicken pox) Unknown Completed [facility] Varicella (varivax)(chicken pox) Unknown Completed [facility] TDAP Unknown Completed [facility] HPV9 Unknown Completed [facility] Vital Signs Vital Name Observation Time Observation Value Comments S ource Systolic blood pressure 2023-10-27 03:54:00 135 mm[Hg] [facility] Diastolic blood pressure 2023-10-27 03:54:00 103 mm[Hg] [facility] Heart rate 2023-10-27 03:54:00 95 /min [facility] Body temperature 2023-10-27 03:54:00 36.72 [place] [facility] Respiratory rate 2023-10-27 03:54:00 18 /min [facility] Body height 2023-10-27 03:54:00 152.4 cm [facility] Body weight 2023-10-27 03:54:00 70.761 kg [facility] BMI 2023-10-27 03:54:00 30.47 kg/m2 [facility] Oxygen saturation in Arterial blood by Pulse oximetry 2023-10-27 03:54:00 100 /min [facility] Systolic blood pressure 2023-09-21 04:15:00 120 mm[Hg] [facility] Diastolic blood pressure 2023-09-21 04:15:00 68 mm[Hg] [facility] Heart rate 2023-09-21 04:15:00 93 /min [facility] Body temperature 2023-09-21 04:15:00 36.89 [place] [facility] Respiratory rate 2023-09-21 04:15:00 16 /min [facility] Body height 2023-09-21 04:15:00 152.4 cm [facility] Body weight 2023-09-21 04:15:00 70.761 kg [facility] BMI 2023-09-21 04:15:00 30.47 kg/m2 [facility] Oxygen saturation in Arterial blood by Pulse oximetry 2023-09-21 04:15:00 100 /min [facility] Systolic blood pressure 2023-07-17 03:00:00 122 mm[Hg] [facility] Diastolic blood pressure 2023-07-17 03:00:00 86 mm[Hg] [facility] Heart rate 2023-07-17 03:00:00 73 /min [facility] Respiratory rate 2023-07-17 03:00:00 16 /min [facility] Oxygen saturation in Arterial blood by Pulse oximetry 2023-07-17 03:00:00 100 /min [facility] Body weight 2023-07-17 00:43:00 69.854 kg [facility] BMI 2023-07-17 00:43:00 30.08 kg/m2 [facility] Body temperature 2023-07-17 00:43:00 36.78 [place] [facility] Body height 2023-07-17 00:43:00 152.4 cm [facility] Systolic blood pressure 2023-05-17 19:58:00 112 mm[Hg] [facility] Diastolic blood pressure 2023-05-17 19:58:00 76 mm[Hg] [facility] Heart rate 2023-05-17 19:58:00 71 /min [facility] Body temperature 2023-05-17 19:58:00 36.61 [place] [facility] Respiratory rate 2023-05-17 19:58:00 16 /min [facility] Body height 2023-05-17 19:58:00 152.4 cm [facility] 2023-05-17 19:58:00 66.225 kg [facility] BMI 2023-05-17 19:58:00 28.51 kg/m2 [facility] Oxygen saturation in Arterial blood by Pulse oximetry 2023-05-17 19:58:00 98 /min [facility] Body temperature 2023-01-05 14:10:13 37.72 [place] [facility] Systolic blood pressure 2023-01-05 14:00:00 119 mm[Hg] [facility] Diastolic blood pressure 2023-01-05 14:00:00 79 mm[Hg] [facility] Heart rate 2023-01-05 14:00:00 89 /min [facility] Respiratory rate 2023-01-05 14:00:00 15 /min [facility] Oxygen saturation in Arterial blood by Pulse oximetry 2023-01-05 14:00:00 96 /min [facility] Body height 2023-01-05 13:02:00 152.4 cm [facility] Body weight 2023-01-05 13:02:00 72.576 kg [facility] BMI 2023-01-05 13:02:00 31.25 kg/m2 [facility] Systolic blood pressure 2022-12-27 16:46:00 105 mm[Hg] [facility] Diastolic blood pressure 2022-12-27 16:46:00 70 mm[Hg] [facility] Heart rate 2022-12-27 16:46:00 71 /min [facility] Body temperature 2022-12-27 16:46:00 36.78 [place] [facility] Respiratory rate 2022-12-27 16:46:00 18 /min [facility] Body height 2022-12-27 16:46:00 152.4 cm [facility] Body weight 2022-12-27 16:46:00 73.539 kg [facility] BMI 2022-12-27 16:46:00 31.66 kg/m2 [facility] Systolic blood pressure 2022-09-28 02:27:00 133 mm[Hg] [facility] Diastolic blood pressure 2022-09-28 02:27:00 91 mm[Hg] [facility] Heart rate 2022-09-28 02:27:00 94 /min [facility] Body temperature 2022-09-28 02:27:00 37.39 [place] [facility] Respiratory rate 2022-09-28 02:27:00 16 /min [facility] Body height 2022-09-28 02:27:00 152.4 cm [facility] Body weight 2022-09-28 02:27:00 68.13 kg [facility] BMI 2022-09-28 02:27:00 29.33 kg/m2 [facility] Oxygen saturation in Arterial blood by Pulse oximetry 2022-09-28 02:27:00 100 /min [facility] Systolic blood pressure 2022-09-25 03:45:00 124 mm[Hg] [facility] Diastolic blood pressure 2022-09-25 03:45:00 79 mm[Hg] [facility] Heart rate 2022-09-25 03:45:00 81 /min [facility] Body temperature 2022-09-25 03:45:00 36.89 [place] [facility] Respiratory rate 2022-09-25 03:45:00 15 /min [facility] Body height 2022-09-25 03:45:00 152.4 cm [facility] Body weight 2022-09-25 03:45:00 68.04 kg [facility] BMI 2022-09-25 03:45:00 29.29 kg/m2 [facility] Oxygen saturation in Arterial blood by Pulse oximetry 2022-09-25 03:45:00 100 /min [facility] Systolic blood pressure 2021-12-29 20:04:00 134 mm[Hg] [facility] Diastolic blood pressure 2021-12-29 20:04:00 86 mm[Hg] [facility] Heart rate 2021-12-29 20:04:00 76 /min [facility] Body temperature 2021-12-29 20:04:00 36.94 [place] [facility] Respiratory rate 2021-12-29 20:04:00 18 /min [facility] Body height 2021-12-29 20:04:00 152.4 cm [facility] Body weight 2021-12-29 20:04:00 68.856 kg [facility] BMI 2021-12-29 20:04:00 29.65 kg/m2 [facility] Body mass index (BMI) [Percentile] Per age and sex 2021-12-29 20:04:00 93.49 % [facility] Procedures Procedure Date / Time Performed Performing Clinician Source POCT TEST 2023-10-27 04:27:00 Darion Nobles [facility] TEST, SERUM 2023-10-27 04:26:00 Lory Nobles [facility] COMP. METABOLIC PANEL (87320) 2023-10-27 04:26:00 Gerard Nobles [facility] CBC WITH DIFF 2023-10-27 04:26:00 Gerard Nobles [facility] URINALYSIS 2023-10-27 04:26:00 Gerard Nobles [facility] CONSENT/REFUSAL FOR DIAGNOSIS AND TREATMENT 2023-10-27 03:50:18 Doctor Unassigned, [place] [facility] ASSIGNMENT OF BENEFITS 2023-09-28 16:03:04 Docto r Unassigned, [place] [facility] NOTICE OF PRIVACY PRACTICES 2023-09-21 04:06:10 Doctor Unassigned, [place] [facility] CONSENT/REFUSAL FOR DIAGNOSIS AND TREATMENT 2023-09-21 04:05:29 Doctor Unassigned, [place] [facility] RAPID STREP SCREEN FOR GROUP A 2023-07-17 03:07:00 Roberto Griffith [facility] POCT TEST 2023-07-17 01:53:00 Marcelina Cadrozo [facility] COMP. METABOLIC PANEL ([id number]) 2023-07-17 01:51:00 Sandi Cardozo [facility] CBC WITH DIFF 2023-07-17 01:51:00 Sandi Cardozo [facility] URINALYSIS 2023-07-17 01:51:00 Sandi Cardozo [facility] EBV-MONONUCLEOSIS SCREEN 2023-07-17 01:51:00 Roberto Grfifith [facility] CONSENT/REFUSAL FOR DIAGNOSIS AND TREATMENT 2023-07-17 00:37:35 Doctor Unassigned, [place] [facility] POCT TEST 2023-05-17 20:06:00 Farooq Davis [facility] POCT URINALYSIS 2023-05-17 20:00:00 Farooq Davis [facility] RAPID STREP SCREEN FOR GROUP A 2023-01-05 13:18:00 Roberto Griffith [facility] RAPID INFLUENZA A/B 2023-01-05 13:09:00 Aminah Griffith [facility] COVID-19 (ID NOW RAPID TESTING) 2023-01-05 13:09:00 Roberto Griffith [facility] THYROID STIMULATING HORMONE 2022-12-27 17:10:00 Joyce Lopez [facility] CBC WITH DIFF 2022-12-27 17:10:00 Joyce Lopez [facility] GLYCOSYLATED HEMOGLOBIN (A1C) 2022-12-27 17:10:00 Joyce Lopez [facility] RUBELLA SCREEN IGG 2022-12-27 17:10:00 Gretchen Lopez [facility] HCV ANTIBODY 2022-12-27 17:10:00 Joyce Lopez [facility] GC & CHLAMYDIA AMPLIFIED ASSAY 2022-12-27 17:10:00 Joyce Lopez [facility] HIV 1/2 AG-AB WITH REFLEX 2022-12-27 17:10:00 Joyce Lopez [facility] SYPHILIS IGG/IGM 2022-12-27 17:10:00 Joyce Lopez [facility] GARDASIL 9 (HPV 9V) VACCINE 2022-12-27 16:53:08 Joyce Lopez [facility] POCT TEST 2022-12-27 16:47:00 Vignesh Lopez [facility] ASSIGNMENT OF BENEFITS 2022-12-27 15:53:31 Docto r Unassigned, [place] [facility] CONSENT/REFUSAL FOR DIAGNOSIS AND TREATMENT 2022-09-28 02:20:10 Doctor Unassigned, [place] [facility] POCT TEST 2022-09-25 04:35:00 Bandar Castillo [facility] NOTICE OF PRIVACY PRACTICES 2022-09-25 03:45:44 Doctor Unassigned, [place] [facility] CONSENT/REFUSAL FOR DIAGNOSIS AND TREATMENT 2022-09-25 03:44:56 Doctor Unassigned, [place] [facility] Encounters Start Date/Time End Date/Time Encounter Type Admission Type Attending [facility] Care Facility Care Department Encounter ID Source 2021-06-26 08:58:[address] [facility] [id number] [facility] 2021-06-24 18:43:46 Outpatient LES HUGGINS [facility] [id number] [facility] 2023-11-29 15:30:00 2023-11-29 15:30:00 Outpatient LAAN BAEZA [id number] Yady López 2023-10-26 21:57:00 2023-10-26 23:58:00 Emergency X GERARD NOBLES [facility] ERT [id number] [facility] 2023-10-26 21:57:00 2023-10-26 23:58:00 Emergency Gerard Nobles [facility] 1..840.114 350.1.13.10 4.2.7.2.686 [id number] [facility] 2023-10-16 15:53:57 2023-10-16 15:53:57 Outpatient SFA STEPHANIE [id number] Marquis Hart 2023-09-28 10:15:00 2023-09-28 10:15:00 Outpatient R CATRACHITA GNUYEN [facility] [id number] [facility] 2023-09-28 00:00:00 2023-09-28 00:00:00 Orders Only Doctor Unassigned, [place] [facility] 1..840.114 350.1.13.10 4.2.7.2.686 [id number] [facility] 2023-09-20 22:18:00 2023-09-20 23:14:00 Emergency X ROBERTO GRIFFITH [facility] ERT [id number] [facility] 2023-09-20 22:18:00 2023-09-20 23:14:00 Emergency Roberto Griffith [facility] 1.2.840.114 350.1.13.10 4.2.7.2.686 [id number] [facility] 2023-07-16 18:45:00 2023-07-16 22:54:00 Emergency X ROBERTO GRIFFITH [facility] ERT [id number] [facility] 2023-07-16 18:45:00 2023-07-16 22:54:00 Emergency Sandi Cardozo Roberto [facility] 1..840.114 350.1.13.10 4.2.7.2.686 [id number] [facility] 2023-07-03 14:00:00 2023-07-03 14:00:00 Outpatient R VIANEY GARCIA [facility] [id number] [facility] 2023-05-17 15:00:00 2023-05-17 15:24:56 Outpatient R FAROOQ DAVIS [facility] [id number] [facility] 2023-05-17 15:00:00 2023-05-17 15:20:00 Urgent Care SusanFarooq Unknown, Attending [facility] 1..840.114 350.1.13.10 4.2.7.2.686 [id number] [facility] 2023-03-27 13:30:00 2023-03-27 13:30:00 Outpatient R JOYCE LOPEZ [facility] [id number] [facility] 2023-03-13 00:00:00 2023-03-13 00:00:00 Telephone Joyce Lopez [facility] STATISTICAL METHODS [facility] CHILD [facility] 1.2.840.114 350.1.13.10 4.2.7.2.686 [id number] [facility] 2023-01-05 08:03:00 2023-01-05 09:46:00 Emergency X ROBERTO GRIFFITH [facility] ERT [id number] [facility] 2023-01-05 08:03:00 2023-01-05 09:46:00 Emergency Roberto Griffith [facility] 1.2.840.114 350.1.13.10 4.2.7.2.686 [id number] [facility] 2022-12-27 11:00:00 2022-12-27 12:13:57 Outpatient R JOYCE LOPEZ [facility] [id number] [facility] 2022-12-27 11:00:00 2022-12-27 12:13:57 Office Visit Joyce Lopez [facility] STATISTICAL METHODS TEACHER [facility] MATERNAL & CHILD [facility] 1.2840.114 350.1.13.10 4.2.7.2.686 [id number] [facility] 2022-12-27 00:00:00 2022-12-27 00:00:00 Orders Only Doctor Unassigned, [place] [facility] 1.2840.114 350.1.13.10 4.2.7.2.686 [id number] [facility] 2022-09-27 20:33:00 2022-09-27 21:45:00 Emergency X ALEXIS CAMPOS [facility] ERT [id number] [facility] 2022-09-27 20:33:00 2022-09-27 21:45:00 Emergency Alexis Campos S [facility] 1.2.840.114 350.1.13.10 4.2.7.2.686 [id number] [facility] 2022-09-27 10:15:00 2022-09-27 10:15:00 Outpatient DARRON WISECY [facility] [id number] [facility] 2022-09-24 21:55:00 2022-09-24 23:00:00 Emergency X BANDAR CASTILLO [facility] ERT [id number] [facility] 2022-09-24 21:55:00 2022-09-24 23:00:00 Emergency Bandar Castillo S [facility] 1.0.114 350.1.13.10 4.2.7.2.686 [id number] [facility] 2022-01-06 09:56:00 2022-01-06 09:56:00 Outpatient Facundo Almanzar [facility] [id number] [facility] 2021-12-30 00:00:00 2021-12-30 00:00:00 Telephone Mayra Saavedra [facility] STATISTICAL METHODS TEACHER [facility] MATERNAL & CHILD HEALTH [facility] 1..114 350.1.13.10 4.2.7.2.686 [id number] [facility] 2021-12-29 15:15:00 2021-12-29 15:46:42 Outpatient R MAYRA SAAVEDRA [facility] [id number] [facility] 2021-12-29 15:15:00 2021-12-29 15:46:42 Office Visit Mayra Saavedra [facility] STATISTICAL METHODS TEACHER [facility] MATERNAL & CHILD [facility] 1.0.114 350.1.13.10 4.2.7.2.686 [id number] [facility] 2021-12-29 00:00:00 2021-12-29 00:00:00 Orders Only Doctor Unassigned, [place] [facility] 1.840.114 350.1.13.10 4.2.7.2.686 [id number] [facility] 2021-12-22 09:45:00 2021-12-22 09:45:00 Outpatient RENETTA JULIEN [facility] [id number] [facility] 2021-12-22 09:45:00 2021-12-22 09:45:00 Outpatient Cecily COON RENETTA [facility] [id number] [facility] 2021-12-14 15:00:00 2021-12-14 15:00:00 Outpatient VIANEY RUIZ [facility] [id number] [facility] 2021-12-08 08:53:50 2021-12-08 23:59:00 Outpatient RENETTA JULIEN [facility] [id number] [facility] 2021-12-08 08:45:00 2021-12-08 10:02:07 Outpatient RENETTA JULIEN [facility] [id number] [facility] 2021-12-08 08:45:00 2021-12-08 10:02:07 Outpatient Cecily COON RENETTA [facility] [id number] [facility] 2021-12-08 08:45:00 2021-12-08 09:00:00 [facility] 1.2.840.114 350.1.13.10 4.2.7.2.686 [id number] [facility] 2021-12-01 14:15:00 2021-12-01 14:15:00 Outpatient RENETTA JULIEN [facility] [id number] [facility] 2021-12-01 14:15:00 2021-12-01 14:15:00 Outpatient RENETTA JULIEN [facility] [id number] [facility] 2021-11-29 09:15:00 2021-11-29 09:30:00 Silviculture Professor Visit 2, [facility] Annabelle Jo [facility] NAL BUILD[facility] 1..840.114 350.1.13.10 4.2.7.2.686 [id number] [facility] 2021-11-29 09:15:00 2021-11-29 09:15:00 Outpatient Cecily JO ANNABELLE [facility] [id number] [facility] 2021-11-29 09:15:00 2021-11-29 09:15:00 Outpatient [facility] [id number] [facility] 2021-11-29 08:30:00 2021-11-29 08:30:00 Office Visit Annabelle Jo [facility] BUILD[facility] 1..840.114 350.1.13.10 4.2.7.2.686 [id number] [facility] 2021-11-24 00:00:00 2021-11-24 00:00:00 Orders Only Doctor Unassigned, [place] [facility] 1..840.114 350.1.13.10 4.2.7.2.686 [id number] [id number] [facility] 2021-11-17 15:00:00 2021-11-17 15:00:00 Outpatient Cecily JO [facility] [id number] [facility] 2021-11-09 09:00:00 2021-11-09 09:00:00 Outpatient ANNABELLE WISE [facility] [id number] [facility] 2021-09-21 15:30:00 2021-09-21 15:41:13 Nurse Visit Nurse, [facility] Vianey Garcia [facility] 1..840.114 350.1.13.10 4.2.7.2.686 [id number] [facility] 2021-09-21 15:30:00 2021-09-21 15:30:00 Outpatient R ADUM, [facility] [id number] [facility] 2021-09-13 15:30:00 2021-09-13 15:30:00 Outpatient R VIANEY GARCIA [facility] [id number] [facility] 2021-08-03 15:30:00 2021-08-03 15:30:00 Outpatient R [facility] [id number] [facility] 2021-05-11 15:44:35 2021-05-11 16:44:44 Nurse Visit Nurse, [facility] PettySamanta [facility] 1..840.114 350.1.13.10 4.2.7.2.686 [id number] [facility] 2021-05-11 08:00:00 2021-05-11 08:00:00 Outpatient R [facility] [id number] [facility] 2021-05-11 00:00:00 2021-05-11 00:00:00 Orders Only Doctor Unassigned, [place] [facility] 1..840.114 350.1.13.10 4.2.7.2.686 [id number] [id number] [facility] 2021-05-10 08:00:00 2021-05-10 08:00:00 Outpatient R [facility] [id number] [facility] 2021-05-03 15:00:00 2021-05-03 15:00:00 Outpatient R [facility] [id number] [facility] 2021-04-30 00:00:00 2021-04-30 00:00:00 Nurse Triage Lucrecia Williamson [facility] 1..840.114 350.1.13.10 4.2.7.2.686 [id number] [facility] 2021-03-18 15:30:00 2021-03-18 15:30:00 Outpatient R [facility] [id number] [facility] 2021-03-16 14:30:00 2021-03-16 14:30:00 Outpatient R [facility] [id number] [facility] 2021-03-16 00:00:00 2021-03-16 00:00:00 Telephone AdVianey teague [facility] 1.2.840.114 350.1.13.10 4.2.7.2.686 [id number] [facility] 2021-02-25 10:15:00 2021-02-25 10:15:00 Outpatient Cecily COON RENETTA [facility] [id number] [facility] 2021-02-17 15:00:00 2021-02-17 15:00:00 [facility] [id number] [facility] 2021-02-11 10:00:00 2021-02-11 10:00:00 Outpatient Cecily COON RENETTA [facility] [id number] [facility] 2020-12-15 14:23:49 2020-12-15 14:38:49 Silviculture Professor Visit 2, [facility] AdVianey teague [facility] 1.2.840.114 350.1.13.10 4.2.7.2.686 [id number] [facility] 2020-12-15 13:51:57 2020-12-15 14:18:57 Nurse Visit Nurse, [facility] AdVianey teague [facility] 1.2.840.114 350.1.13.10 4.2.7.2.686 [id number] [facility] 2020-12-15 14:00:00 2020-12-15 14:00:00 Outpatient R JABIERWOODROW [facility] [id number] [facility] 2020-12-06 13:30:00 2020-12-06 13:30:00 Outpatient R JASPREET [facility] [id number] [facility] 2020-11-20 17:26:00 2020-11-20 17:37:00 Emergency EdmundBelinda [facility] 1.2.840.114 350.1.13.10 4.2.7.2.686 [id number] [facility] 2020-11-20 00:00:00 2020-11-20 00:00:00 Orders Only Doctor Unassigned, [place] [facility] 1.2.840.114 350.1.13.10 4.2.7.2.686 [id number] [facility] 2020-11-16 00:00:00 2020-11-16 00:00:00 Case Management Adwoodrow Vianey Hernandez [facility] 1.2.840.114 350.1.13.10 4.2.7.2.686 [id number] [facility] 2020-11-09 13:35:56 2020-11-09 15:09:56 Office Visit Adwoodrow Vianey Hernandez [facility] 1.2.840.114 350.1.13.10 4.2.7.2.686 [id number] [facility] 2020-11-09 13:30:00 2020-11-09 13:30:00 Outpatient R JASPREET VIANEY [facility] [id number] [facility] 2020-11-08 15:45:00 2020-11-08 15:45:00 Outpatient R ANNABELLE JO [facility] [id number] [facility] 2020-11-05 15:00:00 2020-11-05 15:00:00 Outpatient R JASPREET [facility] [id number] [facility] 2020-11-04 14:30:00 2020-11-04 14:30:00 Outpatient R JASPREET [facility] [id number] [facility] 2020-11-02 00:00:00 2020-11-02 00:00:00 Telephone Adum, Vianey Hernandez [facility] 1.2.840.114 350.1.13.10 4.2.7.2.686 [id number] [facility] 2020-09-23 00:00:00 2020-09-23 00:00:00 Orders Only Doctor Unassigned, [place] [facility] 1.2.840.114 350.1.13.10 4.2.7.2.686 [id number] [id number] [facility] 2020-09-15 00:00:00 2020-09-15 00:00:00 Case Management Adum, Vianey Hernandez [facility] 1.2.840.114 350.1.13.10 4.2.7.2.686 [id number] [facility] 2020-09-10 00:00:00 2020-09-10 00:00:00 Case Management Adum, Vianey Hernandez [facility] 1.2.840.114 350.1.13.10 4.2.7.2.686 [id number] 134 [id number] [facility] 2020-09-09 10:14:30 2020-09-09 10:29:30 Silviculture Professor Visit 2, Adc Lab Adum, Vianey Hernandez [facility] 1.2.840.114 350.1.13.10 4.2.7.2.686 [id number] [facility] 2020-09-09 08:31:02 2020-09-09 09:58:53 Office Visit Adum, Vianey Hernandez [facility] 1.2.840.114 350.1.13.10 4.2.7.2.686 [id number] [facility] 2020-09-09 09:00:00 2020-09-09 09:00:00 Outpatient R VIANEY GARCIA [facility] [id number] [facility] 2020-09-09 00:00:00 2020-09-09 00:00:00 Orders Only Doctor Unassigned, [place] [facility] 1..114 350.1.13.10 4.2.7.2.686 [id number] [facility] 2020-06-15 00:00:00 2020-06-15 00:00:00 Orders Only Doctor Unassigned, [place] [facility] 1.114 350.1.13.10 4.2.7.2.686 [id number] [id number] [facility] 2020-06-07 15:12:17 2020-06-07 15:27:17 Office Visit Renetta Coon [facility] 1.114 350.1.13.10 4.2.7.2.686 [id number] [facility] 2020-06-07 15:00:00 2020-06-07 15:00:00 Outpatient R RENETTA COON [facility] [id number] [facility] 2020-05-24 05:58:00 2020-05-24 09:24:00 Hospital Encounter Les Huggins [facility] 1.114 350.1.13.10 4.2.7.2.686 [id number] [facility] 2020-05-22 13:24:32 2020-05-22 13:44:32 Laboratory Only Lab, Adc Fam Pob Page [facility] Professio nal Office Building One 1..114 350.1.13.10 4.2.7.2.686 [id number] [facility] 2020-05-22 13:20:00 2020-05-22 13:20:00 Outpatient PAGE BALDERAS [facility] [id number] [facility] 2020-05-21 11:00:00 2020-05-21 11:00:00 Outpatient R PANKAJ REESE [facility] [id number] [facility] 2020-05-17 00:00:00 2020-05-17 00:00:00 Prep For Surgery Les Huggins [facility] Surgical Specialti es [place] 1.2.840.114 350.1.13.10 4.2.7.2.686 [id number] [facility] 2020-05-13 11:14:45 2020-05-13 11:39:37 [facility] 1.2840.114 350.1.13.10 4.2.7.2.686 [id number] [facility] 2020-05-13 11:00:00 2020-05-13 11:00:00 Outpatient R LES HUGGINS [facility] [id number] [facility] 2020-05-13 00:00:00 2020-05-13 00:00:00 Letter (Out) Renetta Coon [facility]ti y[place] 1.2.840.114 350.1.13.10 4.2.7.2.686 [id number] [facility] 2020-05-13 00:00:00 2020-05-13 00:00:00 Letter (Out) Renetta Coon [facility] Surgical Specialti y[place]x [place] 1.2.840.114 350.1.13.10 4.2.7.2.686 [id number] [facility] 2020-05-05 15:15:00 2020-05-05 23:59:00 Hospital Encounter Les Huggins [facility] 1.2.840.114 350.1.13.10 4.2.7.2.686 [id number] [facility] 2020-05-05 00:00:00 2020-05-05 00:00:00 Outpatient R LES HUGGINS [facility] [id number] [facility] 2020-04-15 00:00:00 2020-04-15 00:00:00 Orders Only Doctor Unassigned, [place] [facility] 1.2840.114 350.1.13.10 4.2.7.2.686 [id number] [facility] 2020-04-08 00:00:00 2020-04-08 00:00:00 Telephone Les Huggins [facility] 1.2.840.114 350.1.13.10 4.2.7.2.686 [id number] [facility] 2020-04-05 14:45:57 2020-04-05 15:00:57 Office Visit Renetta Coon [facility] 1.2840.114 350.1.13.10 4.2.7.2.686 [id number] [facility] 2020-04-05 15:00:00 2020-04-05 15:00:00 [facility] [id number] 2020-04-01 14:00:00 2020-04-01 14:00:00 Outpatient R RENETTA COON [facility] [id number] [facility] 2020 11:37:49 2020 13:13:00 Emergency Mariaa Rae [facility] 1.284.114 350.1.13.10 4.2.7.2.686 [id number] [facility] 2020 11:37:49 2020 13:13:00 Emergency X MARIAA RAE [facility] ERT [id number] [facility] Results Test Description Test Time Test Comments Results Result Co mments Source [facility] ([id number])2023-10-27 04:49:57* Test Item Value Reference Range Interpretation Comme nts NA (test code = 7427706014) 139 mmol/L 135-145 K (test code = 0288309733) 4.0 mmol/L 3.5-5.0 CL (test code = 4531634357) 108 mmol/L 98-108 CO2 TOTAL (test code = 8863059337) 25 mmol/L 23-31 AGAP (test code = 8737121582) 6 2-16 BUN (test code = 1399842332) 14 mg/dL 7-23 GLUCOSE (test code = 9022494070) 97 mg/dL 70-110 CREATININE (test code = 2160-0) 0.56 mg/dL 0.50-1.04 TOTAL BILI (test code = 6357572682) 0.7 mg/dL 0.1-1.1 CALCIUM (test code = 4060541632) 8.8 mg/dL 8.6-10.6 T PROTEIN (test code = 9149851323) 8.4 g/dL 6.3-8.2 H ALBUMIN (test code = 9057959959) 4.1 g/dL 3.5-5.0 ALK PHOS (test code = 3799070501) 65 U/L 34-122 ALTv (test code = 1742-6) 21 U/L 5-35 AST(SGOT) (test code = 2421300097) 37 U/L 13-40 eGFR (test code = 62800-8) 134.2 mL/min/1.73m2 CKD-EPI eGFR (2020). Assuming creatinine has been stable day-to-day for at least three months, the eGFR indicates Category G1 (>= 90 mL/min/1.73 m2) Lab Interpretation (test code = 90509-7) Abnormal [facility] with [id number] 04:36:34* Test Item Value Reference Range Interpretation [...] 33.6 g/dL 31.6-35.1 RDW-SD (test code = 25591-1) 43.0 fL 39.0-49.9 RDW-CV (test code = 788-0) 13.5 % 12.0-15.5 PLT (test code = 777-3) 241 166-358 MPV (test code = 42344-5) 12.1 fL 9.5-12.9 NRBC/100 WBC (test code = 9174037722) 0.0 0.0-10.0 NRBC x10^3 (test code = 4199390161) See_Comment [Automated messa ge] The system which generated this result transmitted reference range: 10*3/?L. The reference range was not used to interpret this result as normal/abnormal. GRAN MAT (NEUT) % (test code = 770-8) 67.8 % IMM GRAN % (test code = 4921069345) 0.60 % LYMPH % (test code = 736-9) 21.2 % MONO % (test code = 5905-5) 8.9 % EOS % (test code = 713-8) 1.0 % BASO % (test code = 706-2) 0.5 % GRAN MAT x10^3(ANC) (test code = 8062458363) 8.58 10*3/uL 1.88-7.09 H IMM GRAN x10^3 (test code = 4222472625) 0.07 10*3/uL 0.00-0.06 H LYMPH x10^3 (test code = 731-0) 2.67 10*3/uL 1.32-3.29 MONO x10^3 (test code = 742-7) 1.12 10*3/uL 0.33-0.92 H EOS x10^3 (test code = 711-2) 0.12 10*3/uL 0.03-0.39 BASO x10^3 (test code = 704-7) 0.06 10*3/uL 0.01-0.07 Lab Interpretation (test code = 94562-6) Abnormal [facility] [id number] 04:27:00* Test Item Value Reference Range Interpretation Comme nts POCT PREG (test code = 1605) Negative On board controls acceptable with C Line (test code = 3574) Yes POCT PREG LOT # (test code = 3575) [id number] POCT PREG TEST DATE ( test code = 3576) 10-01-2024 Lab Interpretation (test cod e = 09283-0) Normal [facility]. METABOLIC PANEL (62774)2023-07-17 02:17:29* Test Item Value Reference Range Interpretation Comme nts NA (test code = 4757860951) 140 mmol/L 135-145 K (test code = 1175859758) 3.9 mmol/L 3.5-5.0 CL (test code = 2985334268) 103 mmol/L 98-108 CO2 TOTAL (test code = 7964519925) 29 mmol/L 23-31 AGAP (test code = 4064793319) 8 2-16 BUN (test code = 1690179318) 10 mg/dL 7-23 GLUCOSE (test code = 4920998639) 95 mg/dL 70-110 CREATININE (test code = 4242735306) 0.84 mg/dL 0.50-1.04 TOTAL BILI (test code = 1186395432) 0.3 mg/dL 0.1-1.1 CALCIUM (test code = 0564077347) 9.1 mg/dL 8.6-10.6 T PROTEIN (test code = 8379097920) 8.4 g/dL 6.3-8.2 H ALBUMIN (test code = 3112617872) 4.5 g/dL 3.5-5.0 ALK PHOS (test code = 8780130248) 80 U/L 34-122 ALTv (test code = 1742-6) 16 U/L 5-35 AST(SGOT) (test code = 7932525542) 22 U/L 13-40 eGFR (test code = 78576-8) 102.2 mL/min/1.73m2 CKD-EPI eGFR (2020). Assuming creatinine has been stable day-to-day for at least three months, the eGFR indicates Category G1 (>= 90 mL/min/1.73 m2) Lab Interpretation (test code = 58438-8) Abnormal [facility] WITH [id number] 02:15:48* Test Item Value Reference Range Interpretation Comme nts WBC (test code = 6690-2) 11.54 See_Comment H [Automated messa ge] The system which generated this result transmitted reference range: 4.30 - 11.10 10*3/?L. The reference range was not used to interpret this result as normal/abnormal. RBC (test code = 789-8) 4.87 See_Comment [Automated G.ho.sta ge] The system which generated this result [...] 33.3 g/dL 31.6-35.1 RDW-SD (test code = 76390-1) 42.6 fL 39.0-49.9 RDW-CV (test code = 788-0) 13.2 % 12.0-15.5 PLT (test code = 777-3) 277 See_Comment [Automated messa ge] The system which generated this result transmitted reference range: 166 - 358 10*3/?L. The reference range was not used to interpret this result as normal/abnormal. MPV (test code = 84161-4) 10.5 fL 9.5-12.9 NRBC/100 WBC (test code = 4454829528) 0.0 See_Comment [Automated [employer] ssage] The system which generated this result transmitted reference range: 0.0 - 10.0 /100 WBCs. The reference range was not used to interpret this result as normal/abnormal. NRBC x10^3 (test code = 6323670787) See_Comment [Automated messa ge] The system which generated this result transmitted reference range: 10*3/?L. The reference range was not used to interpret this result as normal/abnormal. GRAN MAT (NEUT) % (test code = 770-8) 60.3 % IMM GRAN % (test code = 1145748582) 0.30 % LYMPH % (test code = 736-9) 25.9 % MONO % (test code = 5905-5) 10.8 % EOS % (test code = 713-8) 2.0 % BASO % (test code = 706-2) 0.7 % GRAN MAT x10^3(ANC) (test code = 4846785458) 6.95 10*3/uL 1.88-7.09 IMM GRAN x10^3 (test code = 0086486272) 0.04 10*3/uL 0.00-0.06 LYMPH x10^3 (test code = 731-0) 2.99 10*3/uL 1.32-3.29 MONO x10^3 (test code = 742-7) 1.25 10*3/uL 0.33-0.92 H EOS x10^3 (test code = 711-2) 0.23 10*3/uL 0.03-0.39 BASO x10^3 (test code = 704-7) 0.08 10*3/uL 0.01-0.07 H Lab Interpretation (test code = 42353-2) Abnormal [facility] [id number] 01:53:00* Test Item Value Reference Range Interpretation Comme nts POCT PREG (test code = 1605) Negative On board controls acceptable with C Line (test code = 3574) Yes POCT PREG LOT # (test code = 3575) [id number] POCT PREG TEST DATE ( test code = 3576) 2024-11-29 Lab Interpretation (test cod e = 82694-1) [facility] [id number] 20:06:00* Test Item Value Reference Range Interpretation Comme nts POCT PREG (test code = 1605) Negative On board controls acceptable with C Line (test code = 3574) Yes POCT PREG LOT # (test code = 3575) POCT PREG TEST DATE ( test code = 3576) [facility] W SPECIFIC [id number] 20:01:00* Test Item Value Reference Range Interpretation [...] U APPEAR (test code = 3267) cloudy [facility] SCREEN (ANGELIC) [id number] 19:07:18 * Test Item Value Reference Range Interpretation Comme [facility] IgG (test code = 9453261541) Positive Negative ZORAIDA (test code = ZORAIDA) Positive - Indicat es the patient was exposed to Rubella through infection or vaccination.Negative - Indicates the patient could be susceptible to Rubella infection.Equivocal - A second specimen should be sent. [facility] (ANGELIC) [id number] 19:07:18 * Test Item Value Reference Range Interpretation Comme [facility] Rub[facility] IgG (test code = 6685930039) Positive Negative ZORAIDA (test code = ZORAIDA) Positive - Indicat es the patient was exposed to Rubella through infection or vaccination.Negative - Indicates the patient could be susceptible to Rubella infection.Equivocal - A second specimen should be sent. [facility] ONLY - SYPHILIS [id number] 17:26:01* Test Item Value Reference Range Interpretation Comme nts Syphilis IgG/IgM (test code = 16841-6) Non-reactive Non-reactive ZORAIDA (test code = ZORAIDA) Non-reactive - No serologic evidence of T. pallidum infection. Cannot exclude incubating or early syphilis. Submit a second specimen in 2-4 weeks if syphilis is clinically suspected. Equivocal - Further testing to follow. Reactive - Further testing to follow. Lab Interpretation (test code = 05001-1) Normal [facility] - SYPHILIS [id number] 17:26:01* Test Item Value Reference Range Interpretation Comme nts Syphilis IgG/IgM (test code = 58453-5) Non-reactive Non-reactive ZORAIDA (test code = ZORAIDA) Non-reactive - No serologic evidence of T. pallidum infection. Cannot exclude incubating or early syphilis. Submit a second specimen in 2-4 weeks if syphilis is clinically suspected. Equivocal - Further testing to follow. Reactive - Further testing to follow. Lab Interpretation (test code = 43328-3) Normal [facility]OSYL[facility] HEMOGLOBIN (A1C)2022-12-28 15:57:54* Test Item Value Reference Range Interpretation Comme nts HGB A1C (test code = 4548-4) 5.5 % 4.0-5.7 ZORAIDA (test code = ZORAIDA) Reference RangesNormal: <5.7%Prediabetes: 5.7 - 6.4%Diabetes: > 6.5% Lab Interpretation (test code = 90725-6) Normal [facility]GLOB[facility] (A1C)2022-12-28 15:57:54* Test Item Value Reference Range Interpretation Comme nts HGB A1C (test code = 4548-4) 5.5 % 4.0-5.7 ZORAIDA (test code = ZORAIDA) Reference RangesNormal: <5.7%Prediabetes: 5.7 - 6.4%Diabetes: > 6.5% Lab Interpretation (test code = 00140-0) Normal [facility]2 AG-AB WITH [id number] 12:20:58* Test Item Value Reference Range Interpretation Comme nts HIV Semi-quantitative (test code = 06984-0) 0.07 Negative ZORAIDA (test code = ZORAIDA) Non-reactive for HIV-1 antigen and HIV-1/HIV-2 antibodies. ?No laboratory evidence of HIV infection. ?Repeat in 2-4 weeks if acute HIV infection is suspected. [facility]/2 AG-AB WITH [id number] 12:20:58* Test Item Value Reference Range Interpretation Comme nts HIV Semi-quantitative (test code = 78028-6) 0.07 Negative ZORAIDA (test code = ZORAIDA) Non-reactive for HIV-1 antigen and HIV-1/HIV-2 antibodies. ?No laboratory evidence of HIV infection. ?Repeat in 2-4 weeks if acute HIV infection is suspected. [facility] District[facility] [id number] 09:03:31* Test Item Value Reference Range Interpretation Comme nts HCV Ab (test code = 35052-1) Negative HCV Semi-Quantitative (test code = 67262-8) 0.02 [facility] [id number] 09:03:31* Test Item Value Reference Range Interpretation Comme nts HCV Ab (test code = 76329-8) Negative HCV Semi-Quantitative (test code = 17329-8) 0.02 [facility]YRO[facility] STIMULATING [id number] 08:28:04 * Test Item Value Reference Range Interpretation Comme nts TSH (test code = 0290385143) 0.99 See_Comment [Automated messa ge] The system which generated this result transmitted reference range: 0.45 - 4.70 mIU/L. The reference range was not used to interpret this result as normal/abnormal. Lab Interpretation (test code = 13622-2) Normal [facility] STIMULATING [id number] 08:28:04 * Test Item Value Reference Range Interpretation Comme nts TSH (test code = 7955847190) 0.99 See_Comment [Automated messa ge] The system which generated this result transmitted reference range: 0.45 - 4.70 mIU/L. The reference range was not used to interpret this result as normal/abnormal. Lab Interpretation (test code = 65030-8) Normal [facility] WITH [id number] 07:54:04* Test Item Value Reference Range Interpretation [...] 32.7 g/dL 31.6-35.1 RDW-SD (test code = 57251-6) 42.5 fL 39.0-49.9 RDW-CV (test code = 788-0) 13.0 % 12.0-15.5 PLT (test code = 777-3) 232 See_Comment [Automated messa ge] The system which generated this result transmitted reference range: 166 - 358 10*3/?L. The reference range was not used to interpret this result as normal/abnormal. MPV (test code = 40619-6) 11.5 fL 9.5-12.9 NRBC/100 WBC (test code = 5026361979) 0.0 See_Comment [Automated [employer] ssage] The system which generated this result transmitted reference range: 0.0 - 10.0 /100 WBCs. The reference range was not used to interpret this result as normal/abnormal. NRBC x10^3 (test code = 9286981840) See_Comment [Automated messa ge] The system which generated this result transmitted reference range: 10*3/?L. The reference range was not used to interpret this result as normal/abnormal. GRAN MAT (NEUT) % (test code = 770-8) 57.6 % IMM GRAN % (test code = 6260777445) 0.20 % LYMPH % (test code = 736-9) 29.9 % MONO % (test code = 5905-5) 8.6 % EOS % (test code = 713-8) 2.7 % BASO % (test code = 706-2) 1.0 % GRAN MAT x10^3(ANC) (test code = 0497319182) 5.43 10*3/uL 1.88-7.09 IMM GRAN x10^3 (test code = 1141949465) 0.00-0.06 LYMPH x10^3 (test code = 731-0) 2.81 10*3/uL 1.32-3.29 MONO x10^3 (test code = 742-7) 0.81 10*3/uL 0.33-0.92 EOS x10^3 (test code = 711-2) 0.25 10*3/uL 0.03-0.39 BASO x10^3 (test code = 704-7) 0.09 10*3/uL 0.01-0.07 H Lab Interpretation (test code = 16554-9) Abnormal [facility] WITH MOTE8543-04-94 07:54:04* Test Item Value Reference Range Interpretation Comme nts WBC (test code = 6690-2) 9.41 See_Comment [Automated G.ho[employer]sta ge] The system which generated this result transmitted reference range: 4.30 - 11.10 10*3/?L. The reference range was not used to interpret this result as normal/abnormal. RBC (test code = 789-8) 4.84 See_Comment [Automated G.ho[employer]sta ge] The system which generated this result [...] 32.7 g/dL 31.6-35.1 RDW-SD (test code = 67612-8) 42.5 fL 39.0-49.9 RDW-CV (test code = 788-0) 13.0 % 12.0-15.5 PLT (test code = 777-3) 232 See_Comment [Automated messa ge] The system which generated this result transmitted reference range: 166 - 358 10*3/?L. The reference range was not used to interpret this result as normal/abnormal. MPV (test code = 95964-5) 11.5 fL 9.5-12.9 NRBC/100 WBC (test code = 6860560245) 0.0 See_Comment [Automated me ssage] The system which generated this result transmitted reference range: 0.0 - 10.0 /100 WBCs. The reference range was not used to interpret this result as normal/abnormal. NRBC x10^3 (test code = 3415835816) See_Comment [Automated messa ge] The system which generated this result transmitted reference range: 10*3/?L. The reference range was not used to interpret this result as normal/abnormal. GRAN MAT (NEUT) % (test code = 770-8) 57.6 % IMM GRAN % (test code = 4535582728) 0.20 % LYMPH % (test code = 736-9) 29.9 % MONO % (test code = 5905-5) 8.6 % EOS % (test code = 713-8) 2.7 % BASO % (test code = 706-2) 1.0 % GRAN MAT x10^3(ANC) (test code = 0115954812) 5.43 10*3/uL 1.88-7.09 IMM GRAN x10^3 (test code = 8361183470) 0.00-0.06 LYMPH x10^3 (test code = 731-0) 2.81 10*3/uL 1.32-3.29 MONO x10^3 (test code = 742-7) 0.81 10*3/uL 0.33-0.92 EOS x10^3 (test code = 711-2) 0.25 10*3/uL 0.03-0.39 BASO x10^3 (test code = 704-7) 0.09 10*3/uL 0.01-0.07 H Lab Interpretation (test code = 36342-3) [facility] 16:47:00* Test Item Value Reference Range Interpretation Comme nts POCT PREG (test code = 1605) Negative On board controls acceptable with C Line (test code = 3574) Yes POCT PREG LOT # (test code = 3575) POCT PREG TEST DATE ( test code = 3576) [facility] BIZZ9858-74-87 16:47:00* Test Item Value Reference Range Interpretation Comme nts POCT PREG (test code = 1605) Negative On board controls acceptable with C Line (test code = 3574) Yes POCT PREG LOT # (test code = 3575) POCT PREG TEST DATE ( test code = 3576) [facility] EMNM9900-48-18 04:35:00* Test Item Value Reference Range Interpretation Comme nts POCT PREG (test code = 1605) negative On board controls acceptable with C Line (test code = 3574) present POCT PREG LOT # (test code = 3575) [id number] POCT PREG TEST DATE ( test code = 3576) 2023-11-25 Lab Interpretation (test cod e = 66615-4) [facility]21[facility]* Test Item Value Reference Range Interpretation Comme nts SURGICAL (test code = SR) R UN DATE: 01/17/22 [facility] Lab PAGE 1 RUN TIME: 1221 Specimen Inquiry RUN USER: INTERFACE P ATIENT: KATRIN PEREZ LOC: ARIELA #: [id number] AGE/SX: 16/F ROOM: RE01/06/22REG DR: Facundo Kwon MD : 03 BED: DIS: STATUS: [facility] TLOC: SPEC #: [id number] RECD: 01/09/22 STATUS: [facility] #: [id number] KI: 01/06/22 [facility] DR: Facundo Kwon MD ENTERED: 01/09/22 SP TYPE: SURGICAL OTHR DR: DOES_NOT KNOW ORDERED: 70912/2, 89387, ANATOMIC SPEC COPIES TO: DOES_NOT KNOW Facundo Kwon MD [address] [place] [address] PROCEDURES: 09761 (01/09/22) 68492 (01/10/22) TISSUES: A. DUODENUM BIOPSY B. STOMACH BIOPSY/POLYP [...] ON NEXT PAGE R UN DATE: 01/17/22 [place] - Lab PAGE 2 RUN TIME: 1221 Specimen Inquiry RUN USER: INTERFACE S PEC #: [id number] PATIENT: KATRIN PEREZ #[id number] (Continued) GROSS DESCRIPTION (Continued) Technical component excluding immunohistochemistry is performed at [facility], [address] [place] [address] Technical component of all immunohistochemistry is performed at [facility], [address] [place] [address], [address], [facility] [place] [place] [address] Immunohistochemistry: This test was developed and its [...] MILD DUODENITIS --------- Signed SIGNATURE ON FILE [place] 01/17/22 1221 END OF REPORT UR HCG [id number] 12:02:00* Test Item Value Reference Range Interpretation Comme nts UR HCG QUAL (test code = HCGQLU) NEGATIVE This HCGQL test is NOT applicable for MALE patients.Check with nurse about probable order error.If Tumor Marker Test needed, nurse should order test "HCGTU"(Test #550.73145) Notes Date/Time Note Provider Source 2023-10-26 23:53:53 +W9jr1De5/fi67iV6KVo nRds7OU35CDVu6m Qbv7E0Aj3v9nJ9lNxoFwuFiOqwzXS9736-2 10-25T23:53:53 Pt discharged home following ERP eval. Pt given all education and information regarding s/s of worsening condition, the importance of follow up and prescription use and purpose. Pt verbalized understanding. Alert and ambulatory to pov with family. 74945-7Vnedbywdg department OzgmZC7954-51-34E51:55:08[facility] NoteTXT1.2.840.502556.1.13.104.2.7. 2.723727|[id number] for patient chre67763-2MlkaLAZRGVVJEZWXgcfcdngn C-CDA narrative ltdi613090681Ubvpbt A Paul RN[id number] 6HWBCOCCLUFEFITTTIMEKZQ1085-35-26V5 3:55:081.2.840.128384.1.72.3.15|1.2 .840.623858.1.13.104.2.7.2.727879_2 [id number] Charlie Romero RN [facility] 2023-10-26 21:57:03 AvqVqn8EJXbi80wH4ZL0 WGymM0l3/A56fOx leYdunr2BVmiMbDCPY0w0effkXXxb3049-4 10-25T21:57:03 Pt given urine cup and placed in the lobby, pt advice to notify nurse with any other concerns or if symptoms worsen. 15060-7Oeposfhie department OcjkSD7522-08-71S42:57:12[facility] NoteTXT1.2.840.196097.1.13.104.2.7. 2.009557|[id number] for patient frnp50179-9WpdcQUFPLSZUMANLifkrvyhe C-CDA narrative text[id number] 0YMWPERUWNACKZQZIQLBCQS0826-38-90B0 1:57:121.2.840.004958.1.72.3.15|1.2 .840.593808.1.13.104.2.7.2.727879_2 [id number] [facility] 2023-10-26 21:53:04 ZARYdhffbohkLywcTJ8B V2pOjChUQ1bmoa+ AT6gfeaVWfKCqlq+XtXzA42u4BUbF4885-1 10-25T21:53:04 Vaginal bleeding that started today with clots, pt states that she has used 4 pads. Pt c/o lower pelvic and lower back pain. Pt states LMP: 10/13/2023 25554-3Mockzowgq department Triage dihuRG0491-03-90R34:54:20[facility] Triage noteTXT1.2.840.283695.1.13.104.2.7. 2.685149|[id number] for patient vqnf75930-7Xfewvaont department NoteLNNARRATIVEFormatted C-CDA narrative [id number] J Hoot RN[address] TvubXkookthwjDcsokgrtoWGHD063083064 0EYFKCSDAQJSUNIFDKHVRWM7972-85-24F2 1:54:201.2.840.728517.1.72.3.15|1.2 .840.726911.1.13.104.2.7.2.727879_2 [id number] Cassandra Nassar RN [facility] 2023-09-20 23:01:05 ROoM5S1tLmLbvmTYCbAw O2kYzxPfHmvxKdq eyYJMP7vd2qYBkc301Ey4s/Fs4GzG7669-2 09-20T23:01:05 Pt given printed and verbal discharge [...] with steady gait, in no apparent distress 04220-2Akzmisqku department GnaaRA8497-88-38I24:01:44[facility] NoteTXT1.2.840.602254.1.13.104.2.7. 2.341223|[id number] for patient aslp88565-4CunhPRXLBJWWXHYAzngisjmq C-CDA narrative jkde472085074Eutgdft A Diaz RNUT[address] MbsqTpgvfldlyYpglxgpmqWKWF811723879 8QEPXMFFJVOBGCAAWIUACTL6683-15-07U7 3:01:441.2.840.428051.1.72.3.15|1.2 .840.103638.1.13.104.2.7.2.727879_2 [id number] Sulema Leger RN [facility] 2023-09-20 22:13:39 0Cnd80SQvK0eMasD7gPU xVeJPzEWSIhtnGt bMT0luygAPpRthiZhwYbhUXHC3OdJ4050-2 09-20T22:13:39 Pt arrives ambulatory to ED reporting that her lymph nodes are swollen and has been since she was here last time. After review pt was seen here 07/16/2023. She also wanted to be checked for all STD's. 55515-7Sivtjabrw department Triage prtmBM8403-71-48M59:15:12[facility] Triage noteTXT1.2.840.260232.1.13.104.2.7. 2.100306|[id number] for patient lwlc33726-5Atbepheie department NoteLNNARRATIVEFormatted C-CDA narrative jglr284372368Qsospw L Williams RNUT[address] ThfrDwufedpqpYupfzzsvgLRBS115855142 2AJOCITLJKUDMLUAMEYAPUZ7974-98-81G1 2:15:121.2.840.912795.1.72.3.15|1.2 .840.835993.1.13.104.2.7.2.727879_2 [id number] Heidi Hall RN [facility] 2022-01-06 15:10:00 A04013982918Nfr4Mus+ nWWemfvz/Lu6ql3 4OBoGJLkzcVRTf4+0zdvIO2RDFz0FBT1bqT huMX5I6551-28-51Z08:10:00 [facility] EvaluationREPORT#:[id number] REPORT STATUS: SignedDATE:01/06/22 TIME: 1510 PATIENT: KATRIN PEREZ UNIT #: [id number]#: [id number] ROOM/BED:: 03 AGE: 16 SEX: F ATTEND: Facundo Kwon [facility] AUTHOR: Jamse Conrad MD * ALL edits or amendments must be made on the electronic/computer document * Post Anesthesia Evaluation Anes. changes from pre-op evalORM Surgeries: Surgery Date and Time: 01/06/2022 1040 Proposed Primary Procedure: ESOPHAGOGASTRODUODENOSCOPY Anesthetic: TIVADate: 01/06/22Level of consciousness: patient awake, able to answer questions, participate in this eval.Vital signs:Last Documented: Result Date Time Pulse Ox 100 01/06 1413 B/P 121/73 01/06 1413 O2 Delivery Room air 01/06 141 Temp 36.7 01/06 141 Pulse 87 01/06 1413 Resp 16 01/06 1413 Cardiovascular: CV system stable, vital signs stableRespiratory/Airway: respiratory system stable, maintains without supportPain: adequately controlledHydration: adequate, euvolemicTemp status: greater than 96.8F, normothermicPresence of N/V: noAnesthesia complications: noOther changes requiring f/u: noneConclusions: no apparent anes. issues, outpts eval prior DC home at 1511 [facility] #:[id number] OF REPORTPRProgress pnxf3482-43-79W74:10:00V.XMBO228764 AVAvailable for patient ibulCVHESKBRIQLRGP7894-59-42D90:12: 08 [facility] 2022-01-06 13:42:00 [id number] HLz7IRQHI0tJR1C igcOfSyNkcEhGTB5Edgz6cmj9Sl5ZFHzV2w UqurdZ1867-97-24J47:42:601630-1553 [facility] PATIENT NAME: KATRIN PEREZ ADMIT DATE: 01/06/22ACCOUNT NO: [id number] ROOM NO: AGE: 16 REPORT TYPE: ENDOSCOPY REPORT SEX: F DATE OF : [birth year]ADMITTING PHYSICIAN: ATTENDING PHYSICIAN:Facundo Kwon MD Patient Name: Katrin Perez Attending MD: ABIDA Gonzalezroceddanette Date: 01/06/2022 1:42 PM Number: [id number] Date of : 2005 Procedure: Upper GI endoscopyPre Procedure Diagnosis: Epigastric abdominal pain, Functional DyspepsiaAssistants: Juan Manuel Gonzalezthesia: Monitored Anesthesia Care Procedure: Pre-Anesthesia Assessment: - [...] 01/06/2022 1:42 PMProcedure Code(s): --- Professional --- 45114, Esophagogastroduodenoscopy, flexible, transoral; with biopsy, single or multipleDiagnosis Code(s): --- Professional --- K29.80, Duodenitis without bleeding R10.13, Epigastric pain K30, Functional dyspepsia CPT copyright 2020 [employer]. All rights reserved. The codes documented in this report are preliminary and upon state inspector review may be revised to meet current compliance requirements.Scope In:Scope Out:Provation {[id number]}. pdf ProVation FT PDF PATIENT NAME: KATRIN PEREZ at 1359 PATIENT NAME: KATRIN PEREZ daaatpk0592-44-00M63:59:00V.RAN2514 0513-0114AVAvailable for patient hngeVOKOLQYJBHXNXW4003-62-58Y24:59: 17 [facility]
[2024-01-18 04:23] LABS: Specific Gravity < 1.005 (1.005-1.030); Sqamous Epithelial <5 /HPF (None Seen); Urine Bacteria None Seen /HPF (<20); Urine Bilirubin NEGATIVE (Negative); Urine Blood Negative (Negative); Urine Clarity Turbid (Clear); Urine Color Colorless (Yellow); Urine Culture Reflex Order NOT NEEDED; Urine Glucose NEGATIVE (Negative); Urine Ketones NEGATIVE (Negative); Urine Micro Reflex YN NO BILL MICROSCOPIC; Urine Nitrite NEGATIVE (Negative); Urine Protein NEGATIVE (Negative); Urine RBC <5 /HPF (None Seen); Urine Urobilinogen Normal (Normal)
[2024-01-18 04:24] LABS: Specific Gravity 1.004 (1.005-1.030)
--- NOTE | 2024-01-18 04:35 | ER ---
Nurse's Notes [facility] Name: Lizzie Chase Age: 19 yrs Sex: Female : 2005 Arrival Date: 01/18/2024 Time: 03:28 Bed 8 Private MD: Diagnosis: Dysuria Presentation: 01/17 03:36 Chief complaint: Patient states: urinary frequency, urgency, dysuria and having pink pf1 tinged urine when wiping,onset yesterday. Patient stated is currently 4 days late with her menstrual cycle. 03:36 Coronavirus screen: Vaccine status: Patient reports being unvaccinated. Client denies pf1 travel out of the [place] in the last 14 days. At this time, the client does not indicate any symptoms associated with coronavirus-19. Ebola Screen: Patient negative for fever greater than or equal to 101.5 degrees Fahrenheit, and additional compatible Ebola Virus Disease symptoms. Initial Sepsis Screen: Does the patient meet any 2 criteria? No. Patient's initial sepsis screen is negative. Does the patient have a suspected source of infection? No. Patient's initial sepsis screen is negative. Risk Assessment: Do you want to hurt yourself or someone else? Patient reports no desire to harm self or others. Onset of symptoms was January 17, 2024. 03:36 Method Of Arrival: Ambulatory pf1 03:36 Acuity: NACHO 4 pf1 Triage Assessment: 03:38 General: Appears in no apparent distress. comfortable, well groomed, well developed, pf1 Behavior is calm, cooperative, appropriate for age, quiet. Pain: Denies pain. : Reports burning with urination, urgency, urinary frequency. Historical: - Allergies: 03:59 No Known Allergies; pf1 - PMHx: 03:59 None; pf1 - PSHx: 03:59 Knee surgery; pf1 - Immunization history:: Adult Immunizations not up to date, Client reports having NOT received the Covid vaccine. Last tetanus immunization: < 10 years ago Flu vaccine is up to date. - Infectious Disease History:: Denies. - Social history:: Smoking status: Patient denies any tobacco usage or history of. Patient/guardian denies using alcohol, street drugs. Screenin:10 [facility] ED Fall Risk Assessment (Adult) History of falling in the last 3 months, cm10 including since admission No falls in past 3 months (0 pts) Confusion or Disorientation No (0 pts) Intoxicated or Sedated No (0 pts) Impaired Gait No (0 pts) Mobility Assist Device Used No (0 pt) Altered Elimination No (0 pt) Score/Fall Risk Level 0 - 2 = Low Risk Oriented to surroundings, Maintained a safe environment, Hourly rounding (assess needs \T\ fall precautionary measures) done. Abuse screen: Denies threats or abuse. Denies injuries from another. Nutritional screening: No deficits noted. Tuberculosis screening: No symptoms or risk factors identified. Assessment: 04:09 General: Appears in no apparent distress. comfortable, Behavior is calm, cooperative. cm10 Pain: Complains of pain in suprapubic area Pain currently is 0 out of 10 on a pain scale. Neuro: No deficits noted. Level of Consciousness is awake, alert, obeys commands, Oriented to person, place, time, situation. Cardiovascular: No deficits noted. Patient's skin is warm and dry. : Reports burning with urination, urgency, urinary frequency. Derm: No deficits noted. Skin is healthy with good turgor, Skin is pink, warm \T\ dry. Musculoskeletal: No deficits noted. Range of motion: intact in all extremities. Vital Signs: 03:36 BP 118 / 77; Pulse 87; Resp 16; Temp 97.9; Pulse Ox 100% on R/A; Weight 73.03 kg; pf1 Height 5 ft. 0 in. ; Pain 0/10; 04:41 BP 114 / 65; Pulse 89; Resp 19; Temp 97.3(TE); Pulse Ox 100% on R/A; Pain 0/10; tm6 03:36 Body Mass Index 31.44 (73.03 kg, 152.4 cm) pf1 03:36 Pain Scale: Adult pf1 04:41 Pain Scale: Adult tm6 ED Course: 03:30 Patient arrived in ED. jj6 03:31 Clary Moreno MD is Attending Physician. sp3 03:42 Triage completed. pf1 04:00 Lavern Brumfield, RADHA is Primary Nurse. cm10 04:00 Urine collected: clean catch specimen, cloudy. cm10 04:08 Arm band placed on Patient placed in an exam room, on a stretcher, on pulse oximetry. cm10 04:08 Patient has correct armband on for positive identification. Bed in low position. Call tm6 light in reach. Side rails up X 1. Provided Education on: use of call [employer]. 04:39 No provider procedures requiring assistance completed. Patient did not have IV access tm6 during this emergency room visit. Administered Medications: No medications were administered Medication: 04:10 VIS not applicable for this client. cm10 Outcome: 04:34 Discharge ordered by . sp3 04:42 Discharged to home ambulatory, with friend, tm6 04:42 Condition: stable 04:42 Discharge instructions given to patient, Instructed on discharge instructions, follow up and referral plans. Demonstrated understanding of instructions, follow-up care, 04:43 Patient left the ED. tm6 Signatures: Clary Morneo MD MD sp3 Johnna Rivera Pamala RN RN pf1 Lavern Brumfield RN RN cm10 Gina Burns RN RN tm6 Corrections: (The following items were deleted from the chart) 03:59 03:58 Triage completed. pf1 pf1 04:41 04:38 Reassessment: patient left without receiving discharge paperwork and before nurse tm6 obtained discharge vitals. tm6
--- NOTE | 2024-01-18 04:35 | EDPHYS ---
Physician Documentation [facility] Name: Lizzie Chase Age: 19 yrs Sex: Female : 2005 Arrival Date: 01/18/2024 Time: 03:28 Bed 8 Private MD: ED Physician Clary Moreno HPI: 01/17 04:31 This 19 yrs old Female presents to ER via Ambulatory with complaints of sp3 Urinary Incontinence, PT STATES SHE IS HAVING UTI SYMPTOMS AND WOULD LIKE A TEST. 04:31 19-year-old female presents with dysuria and "I am 4 days late on my cycle". She denies sp3 any vaginal bleeding, discharge, flank pain, urinary frequency, or any other signs or symptoms on ROS at this time. Symptoms been going on for 2 to 3 days.. Historical: - Allergies: 03:59 No Known Allergies; pf1 - PMHx: 03:59 None; pf1 - PSHx: 03:59 Knee surgery; pf1 - Immunization history:: Adult Immunizations not up to date, Client reports having NOT received the Covid vaccine. Last tetanus immunization: < 10 years ago Flu vaccine is up to date. - Infectious Disease History:: Denies. - Social history:: Smoking status: Patient denies any tobacco usage or history of. Patient/guardian denies using alcohol, street drugs. ROS: 04:32 Constitutional: Negative for fever, chills, and weight loss, Eyes: Negative for injury, sp3 pain, redness, and discharge, Neck: Negative for injury, pain, and swelling, Cardiovascular: Negative for chest pain, palpitations, and edema, Respiratory: Negative for shortness of breath, cough, wheezing, and pleuritic chest pain, Abdomen/GI: Negative for abdominal pain, nausea, vomiting, diarrhea, and constipation, Back: Negative for injury and pain, MS/Extremity: Negative for injury and deformity, Skin: Negative for injury, rash, and discoloration, Neuro: Negative for headache, weakness, numbness, tingling, and seizure, Psych: Negative for depression, anxiety, suicide ideation, homicidal ideation, and hallucinations, Allergy/Immunology: Negative for hives, rash, and allergies, Endocrine: Negative for neck swelling, polydipsia, polyuria, polyphagia, and marked weight changes, 04:32 All other systems are negative, Exam: 04:32 Constitutional: This is a well developed, well nourished patient who is awake, alert, sp3 and in no acute distress. Head/Face: Normocephalic, atraumatic. Chest/axilla: Normal chest wall appearance and motion. Nontender with no deformity. No lesions are appreciated. Cardiovascular: Regular rate and rhythm with a normal S1 and S2. No gallops, murmurs, or rubs. Normal PMI, no JVD. No pulse deficits. Respiratory: Lungs have equal breath sounds bilaterally, clear to auscultation and percussion. No rales, rhonchi or wheezes noted. No increased work of breathing, no retractions or nasal flaring. Abdomen/GI: Soft, non-tender, with normal bowel sounds. No distension or tympany. No guarding or rebound. No evidence of tenderness throughout. Back: No spinal tenderness. No costovertebral tenderness. Full range of motion. Skin: Warm, dry with normal turgor. Normal color with no rashes, no lesions, and no evidence of cellulitis. MS/ Extremity: Pulses equal, no cyanosis. Neurovascular intact. Full, normal range of motion. Neuro: Awake and alert, GCS 15, oriented to person, place, time, and situation. Cranial nerves II-XII grossly intact. Motor strength 5/5 in all extremities. Sensory grossly intact. Cerebellar exam normal. Normal gait. Vital Signs: 03:36 BP 118 / 77; Pulse 87; Resp 16; Temp 97.9; Pulse Ox 100% on R/A; Weight 73.03 kg; pf1 Height 5 ft. 0 in. ; Pain 0/10; 04:41 BP 114 / 65; Pulse 89; Resp 19; Temp 97.3(TE); Pulse Ox 100% on R/A; Pain 0/10; tm6 03:36 Body Mass Index 31.44 (73.03 kg, 152.4 cm) pf1 03:36 Pain Scale: Adult pf1 04:41 Pain Scale: Adult tm6 MDM: 03:37 Patient medically screened. sp3 04:33 Data reviewed: vital signs, nurses notes, lab test result(s). ED course: Differential sp3 diagnosis includes dysuria versus UTI/pyelonephritis spectrum versus hCG positive/ versus kidney stone. Clinically have ruled out kidney stone, aortic pathology, sepsis, shock. Patient is in no acute distress with friends laughing and on her phone. UA demonstrates no UTI and hCG is negative. We will safely discharge patient home at this time.. 01/17 03:37 Order name: UAM; Complete Time: 04:27 sp3 01/17 03:37 Order name: Test, Urine; Complete Time: 04: sp3 Administered Medications: No medications were administered Disposition Summary: 01/18/24 04:34 Discharge Ordered Notes: Location: Home sp3 Condition: Stable sp3 Diagnosis - Dysuria sp3 Followup: sp3 - With: Private Physician - When: Upon discharge from the Emergency Department - Reason: Continuance of care Discharge Instructions: - Discharge Summary Sheet sp3 - Dysuria sp3 Forms: - Medication Reconciliation Form sp3 - Antibiotic Education sp3 - Prescription Opioid Use sp3 - Patient Portal Instructions sp3 - Leadership Thank You Letter sp3 Signatures: Dispatcher [employer] Clary Jose MD MD sp3 Mariaa Harris RN RN pf1
[2024-01-18 05:06] VITALS: O2SAT 100
[2024-01-18 05:23] VITALS: BP 114/65; TEMP 97.3
== END 2024-01-18 04:43 | disposition home or self-care (01) ==
LOC: ER 03:28
DX: R30.0 Dysuria (principal)
CPT/HCPCS: 81001; 81025; 99283

== ENCOUNTER 2024-05-02 15:18 | Emergency (ER) | payer OTHER ==
--- OUTSIDE RECORDS SUMMARY | 2024-05-02 15:24 | XMS REPORT | Continuity of Care Document ---
Author Name Unknown Address [address] [facility]. [address] [place] [address] [facility] [address] [facility] [address] [place] [address] Care Team Providers Care Well Digger Name Role Phone LIDIA PHELAN Primary Care Physician Vannesa vailable LES HUGGINS Attending Clinician UnavailALAN Wang Attending Clinician Unavailable GERARD NOBLES Attending Clinician Unavailable Gerard Suazo Attending Clinician [phone] CATRACHITA NGUYEN Attending Clinician Unavail able Doctor Unassigned, [place] Attending Clinician U ROBERTO Alegria Attending Clinician Unavailable Roberto Griffith MD Attending Clinician [phone] Sandi Cardozo NP Attending Clinician [phone] VIANEY GARCIA Attending Clinician Unavailable FAROOQ DAVIS Attending Clinician Unavailable Farooq Barnett Attending Clinician [phone] Unknown, Attending Attending Clinician UnavailJOYCE aLuren Attending Clinician UnavailJoyce Fuentes CNM Attending Clinician [phone] WENDY JANE Attending Clinician UnavailWENDY Crane Attending Clinician Unavaila ALEXIS Monae Attending Clinician Unavailable Alexis Odell S Attending Clinician [phone] ANNABELLE JO Attending Clinician Unavailable BANDAR CASTILLO Attending Clinician Unavailable Bandar Castillo MD Attending Clinician [phone] Facundo Kwon Attending Clinician Unavailable Jacques DORAN, Mayra R Attending Clinician + [phone] MAYRA SAAVEDRA R Attending Clinician Unavailab RENETTA Lam Attending Clinician Unavailable Renetta Clark S Attending Clinician [phone] , [facility] Attending Clinician Unavailable Annabelle Jo PA-C Attending Clinician [phone] Nurse, [facility] Attending Clinician Un available Vianey Garcia MD Attending Clinician [phone] Samanta Petty MD Attending Clinician [phone] Teri RN, Lucrecia M Attending Clinician Unavailable Belinda Hall DO Attending Clinician [phone] Les Huggins MD Attending Clinician [phone] [facility], [facility] Attending Clinician Unavailab Page Gorman Attending Clinician [phone] PAGE RED Attending Clinician Unavailable PANKAJ REESE Attending Clinician UnavailMariaa Mccormack NP Attending Clinician [phone] MARIAA RAE Attending Clinician Unavailable LES HUGGINS Admitting Clinician UnavailSANDI Vaughan Admitting Clinician Unavailable KNOW, DOES_NOT Admitting Clinician Unavailable Les Huggins MD Admitting Clinician [phone] BELINDA HALL Admitting Clinician Unavailab niko Payers Payer Name Policy Type Policy Number Effective Date Expirati on Date Source [facility] [id number] 00:00:00 [facility] SHAYLA PANIAGUA COPAY FOCUS 9 [id number] 2023 00:00:00 [employer] [id number] 2023 00:00:00 Problems Condition Name Condition Details Condition Category Status Onset Date Resolution Date Last Treatment Date Treating Clinician Comments Source Obesity (BMI 30-39.9) Obesity (BMI 30-39.9) Disease Active 12-30 00:00: 00 [facility] Encounter for other general counseling or advice on contracept ion Encounter for other general counseling or advice on contracept ion Disease Active 12-29 00:00: 00 [facility] BMI 29.0-29.9, adult BMI 29.0-29.9, adult Disease Active 12-29 00:00: 00 [facility] BMI 29.0-29.9, adult BMI 29.0-29.9, adult Disease Active 12-29 00:00: 00 [facility] Menorrhagi a with irregular cycle Menorrhagi a with irregular cycle Disease Active 11-09 00:00: 00 [facility] Vitamin D deficiency Vitamin D deficiency Disease Active 16 00:00: 00 [facility] Depo-Prove ra contracept kamran status Depo-Prove ra contracept kamran status Disease Active 16 00:00: 00 [facility] Acute medial meniscus tear, left, subsequent encounter Acute medial meniscus tear, left, subsequent encounter Disease Active -22 00:00: 00 Overview: Formattin g of this note might be different from the original. Added automatic ally from request for surgery [id number] [facility] Allergies, Adverse Reactions, Alerts Allergy Name Allergy Type Status Severity Reaction(s) Onset Date Inactive Date Treating Clinician Comments Source No Known Allergie s DA Active U 01-06 00:00: [address] [facility] NO KNOWN ALLERGIE S Drug Class Active [facility] Social History Social Habit Start Date Stop Date Quantity Comments Source [facility] SDOH Alcohol Comment [facility] Alcohol intake 2023-10-26 00:00:00 2023-10-26 00:00:00 Lifetime non-drinker (finding) [facility] Exposure to SARS-CoV-2 (event) 2022-12-26 00:00:00 2023-01-05 08:00:00 Not sure [facility] Tobacco use and exposure 2022-12-27 00:00:00 2022-12-27 00:00:00 Smokeless tobacco non-user [facility] History of Social function 2022-12-27 00:00:00 2022-12-27 00:00:00 [facility] History SDOH Alcohol Frequency 2020-04-05 00:00:00 2020-04-05 00:00:00 1 [facility] History SDOH Alcohol Std Drinks 2020-04-05 00:00:00 2020-04-05 00:00:00 99 [facility] History SDOH Alcohol Binge 2020-04-05 00:00:00 2020-04-05 00:00:00 1 [facility] Sex Assigned At 2003 00:00:00 2005 00:00:00 [facility] Smoking Status Start Date Stop Date Source Never smoked tobacco [facility] Medications Ordered Medication Name Filled Medication Name Start Date Stop Date Current Medication? Ordering Clinician Indication Dosage Frequency Signature (SIG) Comments Components Source ketorolac (TORADOL) injection 30 mg 10-26 06:00: 00 10-26 05:23 :00 No 30mg 30 mg, Slow IV Push, ONCE, 1 dose, On Sun10/27/23 at 0000, Routine [facility] cefTRIAXone (ROCEPHIN) 1,000 mg in NaCl 0.9% (NS) 100 mL MINI-BAG 10-26 05:15: 00 10-26 05:52 :00 No 1000mg 1,000 mg, IV Piggyback, ONCE, 1 dose, On Sun10/26/23 at 2315, Administer over 30 Minutes, 100 mL
Reas on for Anti-Infec tive: Documented Infection< br>Documen christiano Infection Site: Urine
D uration of Therapy: Other (see Comments) [facility] cefdinir 300 mg capsule 10-25 00:00: 00 11-02 05:59 :00 No [id number] 300mg Take 1 capsule by mouth in the morning and 1 capsule in the evening. Do all this for 7 days. [facility] methylPREDN ISolone 4 mg tablets 09-20 00:00: 00 Yes [id number] Take by mouth SEE-INSTRU CTIONS. follow package directions [facility] amoxicillin -clavulanat e 875-125 mg per tablet 09-20 00:00: 00 Yes [id number] 1{tbl} Take 1 tablet by mouth every 12 (twelve) hours. [facility] iopamidol (ISOVUE 370-500 mL) injection 100 mL 2022-08 03:30: 00 07-17 03:30 :00 No [id number] 100mL 100 mL, Intravenou s, ONCE, 1 dose, On Sun07/16/23 at 2130, Routine [facility] methylPREDN ISolone 4 mg tablets 2022-08 00:00: 00 Yes [id number] Take by mouth SEE-INSTRU CTIONS. follow package directions [facility] clindamycin 300 mg capsule 2022-08 00:00: 00 07-27 05:59 :00 No [id number] 300mg Take 1 capsule by mouth 4 (four) times daily for 10 days. [facility] cefdinir 300 mg capsule 05-17 00:00: 00 05-28 04:59 :00 No [id number] 600mg Take 2 capsules by mouth in the morning for 10 days. [facility] acetaminoph en (TYLENOL) tablet 650 mg 01-05 13:15: 00 01-05 13:14 :00 No 650mg 650 mg, Oral, ONCE, 1 dose, On Sun01/05/23 at 0815, ALLI [facility] amoxicillin 500 mg capsule 01-05 00:00: 00 Yes [id number] 500mg Take 1 capsule by mouth in the morning and 1 capsule at noon and 1 capsule in the evening. [facility] ondansetron 4 mg disintegrat ing tablet 01-05 00:00: 00 Yes [id number] 4mg Take 1 tablet by mouth every 4 (four) hours as needed for Nausea and Vomiting (N/V). [facility] naproxen 500 mg tablet 01-05 00:00: 00 01-16 04:59 :00 No [id number] 500mg Take 1 tablet by mouth in the morning and 1 tablet in the evening. Take with meals. Do all this for 10 days. [facility] norethindro ne-e.estrad ioL-iron (MICROGESTI N FE) 1.5 mg-30 mcg (21)/75 mg (7) per tablet 12-27 00:00: 00 Yes [id number] 1{tbl} Take 1 tablet by mouth in the morning. [facility] naproxen (NAPROSYN) 500 mg tablet 09-27 00:00: 00 12-27 00:00 :00 No [id number] 500mg Take 1 tablet by mouth in the morning and 1 tablet in the evening. Take with meals. [facility] ibuprofen (IBU) tablet 800 mg 09-25 04:30: 00 09-25 04:33 :00 No 800mg 800 mg, Oral, ONCE, 1 dose, On 09/24/22 at 2230, ALLI [facility] No known medications 12-29 16:08: 37 No [facility] pantoprazol e 40 mg EC tablet -11 00:00: 00 12-29 00:00 :00 No 40mg Take 40 mg by mouth daily. [facility] metroNIDAZO LE 500 mg tablet 11-16 00:00: 00 12-29 00:00 :00 No [id number] 500mg Take 1 tablet by mouth every 12 (twelve) hours. [facility] ergocalcife rol, vitamin d2, 1,250 mcg (50,000 unit) capsule 2021-0 1-15 00:00: 00 12-29 00:00 :00 No [id number] 32446E Take 1 capsule by mouth weekly. [facility] ranitidine (ZANTAC) 150 mg tablet 2-11 00:00: 00 12-29 00:00 :00 No 150mg Take 1 tablet by mouth 2 (two) times daily. Follow up with your MD for further evaluation and treatment. [facility] Immunizations Ordered Immunization Name Filled Immunization Name Date Status Comments Source [facility] 2022-12-27 00:00:00 Completed [place] [id number] 2022-12-27 00:00:00 Completed [place] [address] 2022-12-27 00:00:00 Completed [place] [address] 2022-12-27 00:00:00 Completed [facility] Meningococcal Polysaccharide (groups A, C, Y and W-135) conjugate vaccine (MCV4P) 2020-03-30 00:00:00 Completed [facility] Meningococcal Polysaccharide (groups A, C, Y and W-135) conjugate vaccine (MCV4P) 2020-03-30 00:00:00 Completed [facility] Meningococcal Polysaccharide (groups A, C, Y and W-135) conjugate vaccine (MCV4P) 2020-03-30 00:00:00 Completed [facility] Meningococcal Polysaccharide (groups A, C, Y and W-135) conjugate vaccine (MCV4P) 2020-03-30 00:00:00 Completed [facility] 2016-04-17 00:00:00 Completed [facility] Meningococcal Polysaccharide (groups A, C, Y and W-135) conjugate vaccine (MCV4P) 2016-04-17 00:00:00 Completed [facility] TDAP 2016-04-17 00:00:00 Completed [facility] HPV9 2016-04-17 00:00:00 Completed [facility] Meningococcal Polysaccharide (groups A, C, Y and W-135) conjugate vaccine (MCV4P) 2016-04-17 00:00:00 Completed [facility] TDAP 2016-04-17 00:00:00 Completed [facility] HPV9 2016-04-17 00:00:00 Completed [facility] Meningococcal Polysaccharide (groups A, C, Y and W-135) conjugate vaccine (MCV4P) 2016-04-17 00:00:00 Completed [facility] TDAP 2016-04-17 00:00:00 Completed [facility] HPV9 2016-04-17 00:00:00 Completed [facility] Meningococcal Polysaccharide (groups A, C, Y and W-135) conjugate vaccine (MCV4P) 2016-04-17 00:00:00 Completed [facility] TDAP 2016-04-17 00:00:00 Completed [facility] HEPATITIS A 2009-06-30 00:00:00 Completed [facility] Varicella (varivax)(chicken pox) 2009-06-30 00:00:00 Completed [facility] HEPATITIS A 2009-06-30 00:00:00 Completed [facility] Varicella (varivax)(chicken pox) 2009-06-30 00:00:00 Completed [facility] HEPATITIS A 2009-06-30 00:00:00 Completed [facility] Varicella (varivax)(chicken pox) 2009-06-30 00:00:00 Completed [facility] HEPATITIS A 2009-06-30 00:00:00 Completed [facility] Varicella (varivax)(chicken pox) 2009-06-30 00:00:00 Completed [facility] DTaP, Unspecified Formulation 2007-06-10 00:00:00 Completed [facility] HEPATITIS A 2007-06-10 00:00:00 Completed [facility] Hib-HbOC 2007-06-10 00:00:00 Completed [facility] MMR 2007-06-10 00:00:00 Completed [facility] Pneumococcal 7 Conjugate, PCV7 (Prevnar7) 2007-06-10 00:00:00 Completed [facility] IPV 2007-06-10 00:00:00 Completed [facility] DTaP, Unspecified Formulation 2007-06-10 00:00:00 Completed [facility] HEPATITIS A 2007-06-10 00:00:00 Completed [facility] Hib-HbOC 2007-06-10 00:00:00 Completed [facility] MMR 2007-06-10 00:00:00 Completed [facility] Pneumococcal 7 Conjugate, PCV7 (Prevnar7) 2007-06-10 00:00:00 Completed [facility] IPV 2007-06-10 00:00:00 Completed [facility] DTaP, Unspecified Formulation 2007-06-10 00:00:00 Completed [facility] HEPATITIS A 2007-06-10 00:00:00 Completed [facility] Hib-HbOC 2007-06-10 00:00:00 Completed [facility] MMR 2007-06-10 00:00:00 Completed [facility] Pneumococcal 7 Conjugate, PCV7 (Prevnar7) 2007-06-10 00:00:00 Completed [facility] IPV 2007-06-10 00:00:00 Completed [facility] DTaP, Unspecified Formulation 2007-06-10 00:00:00 Completed [facility] HEPATITIS A 2007-06-10 00:00:00 Completed [facility] Hib-HbOC 2007-06-10 00:00:00 Completed [facility] MMR 2007-06-10 00:00:00 Completed [facility] Pneumococcal 7 Conjugate, PCV7 (Prevnar7) 2007-06-10 00:00:00 Completed [facility] IPV 2007-06-10 00:00:00 Completed [facility] DTaP, Unspecified Formulation 2004-03-30 00:00:00 Completed [facility] HIB 4 Dose Schedule 2004-03-30 00:00:00 Completed [facility] MMR 2004-03-30 00:00:00 Completed [facility] IPV 2004-03-30 00:00:00 Completed [facility] Varicella (varivax)(chicken pox) 2004-03-30 00:00:00 Completed [facility] DTaP, Unspecified Formulation 2004-03-30 00:00:00 Completed [facility] HIB 4 Dose Schedule 2004-03-30 00:00:00 Completed [facility] MMR 2004-03-30 00:00:00 Completed [facility] IPV 2004-03-30 00:00:00 Completed [facility] Varicella (varivax)(chicken pox) 2004-03-30 00:00:00 Completed [facility] DTaP, Unspecified Formulation 2004-03-30 00:00:00 Completed [facility] HIB 4 Dose Schedule 2004-03-30 00:00:00 Completed [facility] MMR 2004-03-30 00:00:00 Completed [facility] IPV 2004-03-30 00:00:00 Completed [facility] Varicella (varivax)(chicken pox) 2004-03-30 00:00:00 Completed [facility] DTaP, Unspecified Formulation 2004-03-30 00:00:00 Completed [facility] HIB 4 Dose Schedule 2004-03-30 00:00:00 Completed [facility] MMR 2004-03-30 00:00:00 Completed [facility] IPV 2004-03-30 00:00:00 Completed [facility] Varicella (varivax)(chicken pox) 2004-03-30 00:00:00 Completed [facility] DTaP, Unspecified Formulation 2003 00:00:00 Completed [facility] Hep B, Adol or Pedi Dosage 2003 00:00:00 Completed [facility] HIB 4 Dose Schedule 2003 00:00:00 Completed [facility] Pneumococcal 7 Conjugate, PCV7 (Prevnar7) 2003 00:00:00 Completed [facility] IPV 2003 00:00:00 Completed [facility] DTaP, Unspecified Formulation 2003 00:00:00 Completed [facility] Hep B, Adol or Pedi Dosage 2003 00:00:00 Completed [facility] HIB 4 Dose Schedule 2003 00:00:00 Completed [facility] Pneumococcal 7 Conjugate, PCV7 (Prevnar7) 2003 00:00:00 Completed [facility] IPV 2003 00:00:00 Completed [facility] DTaP, Unspecified Formulation 2003 00:00:00 Completed [facility] Hep B, Adol or Pedi Dosage 2003 00:00:00 Completed [facility] HIB 4 Dose Schedule 2003 00:00:00 Completed [facility] Pneumococcal 7 Conjugate, PCV7 (Prevnar7) 2003 00:00:00 Completed [facility] IPV 2003 00:00:00 Completed [facility] DTaP, Unspecified Formulation 2003 00:00:00 Completed [facility] Hep B, Adol or Pedi Dosage 2003 00:00:00 Completed [facility] HIB 4 Dose Schedule 2003 00:00:00 Completed [facility] Pneumococcal 7 Conjugate, PCV7 (Prevnar7) 2003 00:00:00 Completed [facility] IPV 2003 00:00:00 Completed [facility] DTaP, Unspecified Formulation 2003 00:00:00 Completed [facility] Hep B, Adol or Pedi Dosage 2003 00:00:00 Completed [facility] HIB 4 Dose Schedule 2003 00:00:00 Completed [facility] Pneumococcal 7 Conjugate, PCV7 (Prevnar7) 2003 00:00:00 Completed [facility] IPV 2003 00:00:00 Completed [facility] DTaP, Unspecified Formulation 2003 00:00:00 Completed [facility] Hep B, Adol or Pedi Dosage 2003 00:00:00 Completed [facility] HIB 4 Dose Schedule 2003 00:00:00 Completed [facility] Pneumococcal 7 Conjugate, PCV7 (Prevnar7) 2003 00:00:00 Completed [facility] IPV 2003 00:00:00 Completed [facility] DTaP, Unspecified Formulation 2003 00:00:00 Completed [facility] Hep B, Adol or Pedi Dosage 2003 00:00:00 Completed [facility] HIB 4 Dose Schedule 2003 00:00:00 Completed [facility] Pneumococcal 7 Conjugate, PCV7 (Prevnar7) 2003 00:00:00 Completed [facility] IPV 2003 00:00:00 Completed [facility] DTaP, Unspecified Formulation 2003 00:00:00 Completed [facility] Hep B, Adol or Pedi Dosage 2003 00:00:00 Completed [facility] HIB 4 Dose Schedule 2003 00:00:00 Completed [facility] Pneumococcal 7 Conjugate, PCV7 (Prevnar7) 2003 00:00:00 Completed [facility] IPV 2003 00:00:00 Completed [facility] Hep B, Adol or Pedi Dosage 2003 00:00:00 Completed [facility] Hep B, Adol or Pedi Dosage 2003 00:00:00 Completed [facility] Hep B, Adol or Pedi Dosage 2003 00:00:00 Completed [facility] Hep B, Adol or Pedi Dosage 2003 00:00:00 Completed [facility] DTaP, Unspecified Formulation Unknown Completed [facility] DTaP, Unspecified Formulation Unknown Completed [facility] DTaP, Unspecified Formulation Unknown Completed [facility] DTaP, Unspecified Formulation Unknown Completed [facility] HEPATITIS A Unknown Completed [facility] HEPATITIS A Unknown Completed [facility] Hep B, Adol or Pedi Dosage Unknown Completed [facility] Hep B, Adol or Pedi Dosage Unknown Completed [facility] Hep B, Adol or Pedi Dosage Unknown Completed [facility] Hib-HbOC Unknown Completed [facility] HIB 4 Dose Schedule Unknown Completed [facility] HIB 4 Dose Schedule Unknown Completed [facility] HIB 4 Dose Schedule Unknown Completed [facility] HPV9 Unknown Completed [facility] Meningococcal Polysaccharide (groups A, C, Y and W-135) conjugate vaccine (MCV4P) Unknown Completed [facility] Meningococcal Polysaccharide (groups A, C, Y and W-135) conjugate vaccine (MCV4P) Unknown Completed [facility] MMR Unknown Completed [facility] MMR Unknown Completed [facility] Pneumococcal 7 Conjugate, PCV7 (Prevnar7) Unknown Completed [facility] Pneumococcal 7 Conjugate, PCV7 (Prevnar7) Unknown Completed [facility] Pneumococcal 7 Conjugate, PCV7 (Prevnar7) Unknown Completed [facility] IPV Unknown Completed [facility] IPV Unknown Completed [facility] IPV Unknown Completed [facility] IPV Unknown Completed [facility] Varicella (varivax)(chicken pox) Unknown Completed [facility] Varicella (varivax)(chicken pox) Unknown Completed [facility] TDAP Unknown Completed [facility] HPV9 Unknown Completed [facility] DTaP, Unspecified Formulation Unknown Completed [facility] DTaP, Unspecified Formulation Unknown Completed [facility] DTaP, Unspecified Formulation Unknown Completed [facility] DTaP, Unspecified Formulation Unknown Completed [facility] HEPATITIS A Unknown Completed [facility] HEPATITIS A Unknown Completed [facility] Hep B, Adol or Pedi Dosage Unknown Completed [facility] Hep B, Adol or Pedi Dosage Unknown Completed [facility] Hep B, Adol or Pedi Dosage Unknown Completed [facility] Hib-HbOC Unknown Completed [facility] HIB 4 Dose Schedule Unknown Completed [facility] HIB 4 Dose Schedule Unknown Completed [facility] HIB 4 Dose Schedule Unknown Completed [facility] HPV9 Unknown Completed [facility] Meningococcal Polysaccharide (groups A, C, Y and W-135) conjugate vaccine (MCV4P) Unknown Completed [facility] Meningococcal Polysaccharide (groups A, C, Y and W-135) conjugate vaccine (MCV4P) Unknown Completed [facility] MMR Unknown Completed [facility] MMR Unknown Completed [facility] Pneumococcal 7 Conjugate, PCV7 (Prevnar7) Unknown Completed [facility] Pneumococcal 7 Conjugate, PCV7 (Prevnar7) Unknown Completed [facility] Pneumococcal 7 Conjugate, PCV7 (Prevnar7) Unknown Completed [facility] IPV Unknown Completed [facility] IPV Unknown Completed [facility] IPV Unknown Completed [facility] IPV Unknown Completed [facility] Varicella (varivax)(chicken pox) Unknown Completed [facility] Varicella (varivax)(chicken pox) Unknown Completed [facility] TDAP Unknown Completed [facility] HPV9 Unknown Completed [facility] DTaP, Unspecified Formulation Unknown Completed [facility] DTaP, Unspecified Formulation Unknown Completed [facility] DTaP, Unspecified Formulation Unknown Completed [facility] DTaP, Unspecified Formulation Unknown Completed [facility] HEPATITIS A Unknown [facility] HEPATITIS A Unknown Completed [facility] Hep B, Adol or Pedi Dosage Unknown Completed [facility] Hep B, Adol or Pedi Dosage Unknown Completed [facility] [facility] Hep B, Adol or Pedi Dosage Unknown Completed [facility] Hib-HbOC Unknown Completed [facility] HIB 4 Dose Schedule Unknown Completed [facility] HIB 4 Dose Schedule Unknown Completed [facility] HIB 4 Dose Schedule Unknown Completed [facility] HPV9 Unknown Completed [facility] Meningococcal Polysaccharide (groups A, C, Y and W-135) conjugate vaccine (MCV4P) Unknown Completed [facility] Meningococcal Polysaccharide (groups A, C, Y and W-135) conjugate vaccine (MCV4P) Unknown Completed [facility] MMR Unknown Completed [facility] MMR Unknown Completed [facility] Pneumococcal 7 Conjugate, PCV7 (Prevnar7) Unknown Completed [facility] Pneumococcal 7 Conjugate, PCV7 (Prevnar7) Unknown Completed [facility] Pneumococcal 7 Conjugate, PCV7 (Prevnar7) Unknown Completed [facility] IPV Unknown Completed [facility] IPV Unknown Completed [facility] IPV Unknown Completed [facility] IPV Unknown Completed [facility] Varicella (varivax)(chicken pox) Unknown Completed [facility] Varicella (varivax)(chicken pox) Unknown Completed [facility] TDAP Unknown Completed [facility] HPV9 Unknown Completed [facility] DTaP, Unspecified Formulation Unknown Completed [facility] DTaP, Unspecified Formulation Unknown Completed [facility] DTaP, Unspecified Formulation Unknown Completed [facility] DTaP, Unspecified Formulation Unknown Completed [facility] HEPATITIS A Unknown Completed [facility] HEPATITIS A Unknown Completed [facility] Hep B, Adol or Pedi Dosage Unknown Completed [facility] Hep B, Adol or Pedi Dosage Unknown Completed [facility] Hep B, Adol or Pedi Dosage Unknown Completed [facility] Hib-HbOC Unknown Completed [facility] HIB 4 Dose Schedule Unknown Completed [facility] HIB 4 Dose Schedule Unknown Completed [facility] HIB 4 Dose Schedule Unknown Completed [facility] HPV9 Unknown Completed [facility] Meningococcal Polysaccharide (groups A, C, Y and W-135) conjugate vaccine (MCV4P) Unknown Completed [facility] Meningococcal Polysaccharide (groups A, C, Y and W-135) conjugate vaccine (MCV4P) Unknown Completed [facility] MMR Unknown Completed [facility] MMR Unknown Completed [facility] Pneumococcal 7 Conjugate, PCV7 (Prevnar7) Unknown Completed [facility] Pneumococcal 7 Conjugate, PCV7 (Prevnar7) Unknown Completed [facility] Pneumococcal 7 Conjugate, PCV7 (Prevnar7) Unknown Completed [facility] IPV Unknown Completed [facility] IPV Unknown Completed [facility] IPV Unknown Completed [facility] IPV Unknown Completed [facility] Varicella (varivax)(chicken pox) Unknown Completed [facility] Varicella (varivax)(chicken pox) Unknown Completed [facility] TDAP Unknown Completed [facility] HPV9 Unknown Completed [facility] DTaP, Unspecified Formulation Unknown Completed [facility] DTaP, Unspecified Formulation Unknown Completed [facility] DTaP, Unspecified Formulation Unknown Completed [facility] DTaP, Unspecified Formulation Unknown Completed [facility] HEPATITIS A Unknown Completed [facility] HEPATITIS A Unknown Completed [facility] Hep B, Adol or Pedi Dosage Unknown Completed [facility] Hep B, Adol or Pedi Dosage Unknown Completed [facility] Hep B, Adol or Pedi Dosage Unknown Completed [facility] Hib-HbOC Unknown Completed [facility] HIB 4 Dose Schedule Unknown Completed [facility] HIB 4 Dose Schedule Unknown Completed [facility] HIB 4 Dose Schedule Unknown Completed [facility] HPV9 Unknown Completed [facility] Meningococcal Polysaccharide (groups A, C, Y and W-135) conjugate vaccine (MCV4P) Unknown Completed [facility] Meningococcal Polysaccharide (groups A, C, Y and W-135) conjugate vaccine (MCV4P) Unknown Completed [facility] MMR Unknown Completed [facility] MMR Unknown Completed [facility] Pneumococcal 7 Conjugate, PCV7 (Prevnar7) Unknown Completed [facility] Pneumococcal 7 Conjugate, PCV7 (Prevnar7) Unknown Completed [facility] Pneumococcal 7 Conjugate, PCV7 (Prevnar7) Unknown Completed [facility] IPV Unknown Completed [facility] IPV Unknown Completed [facility] IPV Unknown Completed [facility] IPV Unknown Completed [facility] Varicella (varivax)(chicken pox) Unknown Completed [facility] Varicella (varivax)(chicken pox) Unknown Completed [facility] TDAP Unknown Completed [facility] HPV9 Unknown Completed [facility] Vital Signs Vital Name Observation Time Observation Value Comments S ource Systolic blood pressure 2023-10-27 03:54:00 135 mm[Hg] [facility] Diastolic blood pressure 2023-10-27 03:54:00 103 mm[Hg] [facility] Heart rate 2023-10-27 03:54:00 95 /min [facility] Body temperature 2023-10-27 03:54:00 36.72 [place] [facility] Respiratory rate 2023-10-27 03:54:00 18 /min [facility] Body height 2023-10-27 03:54:00 152.4 cm [facility] Body weight 2023-10-27 03:54:00 70.761 kg [facility] BMI 2023-10-27 03:54:00 30.47 kg/m2 [facility] Oxygen saturation in Arterial blood by Pulse oximetry 2023-10-27 03:54:00 100 /min [facility] Systolic blood pressure 2023-09-21 04:15:00 120 mm[Hg] [facility] Diastolic blood pressure 2023-09-21 04:15:00 68 mm[Hg] [facility] Heart rate 2023-09-21 04:15:00 93 /min [facility] Body temperature 2023-09-21 04:15:00 36.89 [place] [facility] Respiratory rate 2023-09-21 04:15:00 16 /min [facility] Body height 2023-09-21 04:15:00 152.4 cm [facility] Body weight 2023-09-21 04:15:00 70.761 kg [facility] BMI 2023-09-21 04:15:00 30.47 kg/m2 [facility] Oxygen saturation in Arterial blood by Pulse oximetry 2023-09-21 04:15:00 100 /min [facility] Systolic blood pressure 2023-07-17 03:00:00 122 mm[Hg] [facility] Diastolic blood pressure 2023-07-17 03:00:00 86 mm[Hg] [facility] Heart rate 2023-07-17 03:00:00 73 /min [facility] Respiratory rate 2023-07-17 03:00:00 16 /min [facility] Oxygen saturation in Arterial blood by Pulse oximetry 2023-07-17 03:00:00 100 /min [facility] Body weight 2023-07-17 00:43:00 69.854 kg [facility] BMI 2023-07-17 00:43:00 30.08 kg/m2 [facility] Body temperature 2023-07-17 00:43:00 36.78 [place] [facility] Body height 2023-07-17 00:43:00 152.4 cm [facility] Systolic blood pressure 2023-05-17 19:58:00 112 mm[Hg] [facility] Diastolic blood pressure 2023-05-17 19:58:00 76 mm[Hg] [facility] Heart rate 2023-05-17 19:58:00 71 /min [facility] Body temperature 2023-05-17 19:58:00 36.61 [place] [facility] Respiratory rate 2023-05-17 19:58:00 16 /min [facility] Body height 2023-05-17 19:58:00 152.4 cm [facility] Body weight 2023-05-17 19:58:00 66.225 kg [facility] BMI 2023-05-17 19:58:00 28.51 kg/m2 [facility] Oxygen saturation in Arterial blood by Pulse oximetry 2023-05-17 19:58:00 98 /min [facility] Body temperature 2023-01-05 14:10:13 37.72 [place] [facility] Systolic blood pressure 2023-01-05 14:00:00 119 mm[Hg] [facility] Diastolic blood pressure 2023-01-05 14:00:00 79 mm[Hg] [facility] Heart rate 2023-01-05 14:00:00 89 /min [facility] Respiratory rate 2023-01-05 14:00:00 15 /min [facility] Oxygen saturation in Arterial blood by Pulse oximetry 2023-01-05 14:00:00 96 /min [facility] Body height 2023-01-05 13:02:00 152.4 cm [facility] Body weight 2023-01-05 13:02:00 72.576 kg [facility] BMI 2023-01-05 13:02:00 31.25 kg/m2 [facility] Systolic blood pressure 2022-12-27 16:46:00 105 mm[Hg] [facility] Diastolic blood pressure 2022-12-27 16:46:00 70 mm[Hg] [facility] Heart rate 2022-12-27 16:46:00 71 /min [facility] Body temperature 2022-12-27 16:46:00 36.78 [place] [facility] Respiratory rate 2022-12-27 16:46:00 18 /min [facility] Body height 2022-12-27 16:46:00 152.4 cm [facility] Body weight 2022-12-27 16:46:00 73.539 kg [facility] BMI 2022-12-27 16:46:00 31.66 kg/m2 [facility] Systolic blood pressure 2022-09-28 02:27:00 133 mm[Hg] [facility] Diastolic blood pressure 2022-09-28 02:27:00 91 mm[Hg] [facility] Heart rate 2022-09-28 02:27:00 94 /min [facility] Body temperature 2022-09-28 02:27:00 37.39 [place] [facility] Respiratory rate 2022-09-28 02:27:00 16 /min [facility] Body height 2022-09-28 02:27:00 152.4 cm [facility] Body weight 2022-09-28 02:27:00 68.13 kg [facility] BMI 2022-09-28 02:27:00 29.33 kg/m2 [facility] Oxygen saturation in Arterial blood by Pulse oximetry 2022-09-28 02:27:00 100 /min [facility] Systolic blood pressure 2022-09-25 03:45:00 124 mm[Hg] [facility] Diastolic blood pressure 2022-09-25 03:45:00 79 mm[Hg] [facility] Heart rate 2022-09-25 03:45:00 81 /min [facility] Body temperature 2022-09-25 03:45:00 36.89 [place] [facility] Respiratory rate 2022-09-25 03:45:00 15 /min [facility] Body height 2022-09-25 03:45:00 152.4 cm [facility] Body weight 2022-09-25 03:45:00 68.04 kg [facility] BMI 2022-09-25 03:45:00 29.29 kg/m2 [facility] Oxygen saturation in Arterial blood by Pulse oximetry 2022-09-25 03:45:00 100 /min [facility] Systolic blood pressure 2021-12-29 20:04:00 134 mm[Hg] [facility] Diastolic blood pressure 2021-12-29 20:04:00 86 mm[Hg] [facility] Heart rate 2021-12-29 20:04:00 76 /min [facility] Body temperature 2021-12-29 20:04:00 36.94 [place] [facility] Respiratory rate 2021-12-29 20:04:00 18 /min [facility] Body height 2021-12-29 20:04:00 152.4 cm [facility] Body weight 2021-12-29 20:04:00 68.856 kg [facility] BMI 2021-12-29 20:04:00 29.65 kg/m2 [facility] Body mass index (BMI) [Percentile] Per age and sex 2021-12-29 20:04:00 93.49 % [facility] Procedures Procedure Date / Time Performed Performing Clinician Source POCT TEST 2023-10-27 04:27:00 Darion Nobles [facility] TEST, SERUM 2023-10-27 04:26:00 Lory Nobles [facility] COMP. METABOLIC PANEL (38331) 2023-10-27 04:26:00 Gerard Nobles [facility] CBC WITH DIFF 2023-10-27 04:26:00 Gerard Nobles [facility] URINALYSIS 2023-10-27 04:26[facility]REATMENT 2023-10-27 03:50:18 Doctor Unassigned, [place] [facility] ASSIGNMENT OF BENEFITS 2023-09-28 16:03:04 Docto r Unassigned, [place] [facility] NOTICE OF PRIVACY PRACTICES 2023-09-21 04:06:10 Doctor Unassigned, [place] [facility] CONSENT/REFUSAL FOR DIAGNOSIS AND TREATMENT 2023-09-21 04:05:29 Doctor Unassigned, [place] [facility] RAPID STREP SCREEN FOR GROUP A 2023-07-17 03:07:00 Roberto Griffith [facility] POCT TEST 2023-07-17 01:53:00 Marcelina Cardozo [facility] COMP. METABOLIC PANEL ([id number]) 2023-07-17 01:51:00 Sandi Cardozo [facility] CBC WITH DIFF 2023-07-17 01:51:00 Sandi Cardozo [facility] URINALYSIS 2023-07-17 01:51:00 Sandi Cardozo [facility] EBV-MONONUCLEOSIS SCREEN 2023-07-17 01:51:00 Roberto Griffith [facility] CONSENT/REFUSAL FOR DIAGNOSIS AND TREATMENT 2023-07-17 00:37:35 Doctor Unassigned, [place] [facility] POCT TEST 2023-05-17 20:06:00 Farooq Davis [facility] POCT URINALYSIS 2023-05-17 20:00:00 Farooq Davis [facility] RAPID STREP SCREEN FOR GROUP A 2023-01-05 13:18:00 Roberto Griffith [facility] RAPID INFLUENZA A/B 2023-01-05 13:09:00 Aminah Griffith [facility] COVID-19 (ID NOW RAPID TESTING) 2023-01-05 13:09:00 Roberto Griffith [facility] THYROID STIMULATING HORMONE 2022-12-27 17:10:00 Joyce Lopez [facility] CBC WITH DIFF 2022-12-27 17:10:00 Joyce Lopez [facility] GLYCOSYLATED HEMOGLOBIN (A1C) 2022-12-27 17:10:00 Joyce Lopez [facility] RUBELLA SCREEN IGG 2022-12-27 17:10:00 Gretchen Lopez [facility] HCV ANTIBODY 2022-12-27 17:10:00 Joyce Lopez [facility] GC & CHLAMYDIA AMPLIFIED ASSAY 2022-12-27 17:10:00 Joyce Lopez [facility] HIV 1/2 AG-AB WITH REFLEX 2022-12-27 17:10:00 Joyce Lopez [facility] SYPHILIS IGG/IGM 2022-12-27 17:10:00 Joyce Lopez [facility] GARDASIL 9 (HPV 9V) VACCINE 2022-12-27 16:53:08 Joyce Lopez [facility] POCT TEST 2022-12-27 16:47:00 Danielle Lopez [facility] ASSIGNMENT OF BENEFITS 2022-12-27 15:53:31 Docto r Unassigned, [place] [facility] CONSENT/REFUSAL FOR DIAGNOSIS AND TREATMENT 2022-09-28 02:20:10 Doctor Unassigned, [place] [facility] POCT TEST 2022-09-25 04:35:00 Bandar Castillo [facility] NOTICE OF PRIVACY PRACTICES 2022-09-25 03:45:44 Doctor Unassigned, [place] [facility] CONSENT/REFUSAL FOR DIAGNOSIS AND TREATMENT 2022-09-25 03:44:56 Doctor Unassigned, [place] [facility] Encounters Start Date/Time End Date/Time Encounter Type Admission Type Attending [facility] Facility Care Department Encounter ID Source 2021-06-26 08:58:39 Emergency [facility] [id number] [facility] 2021-06-24 18:43:46 Outpatient LES HUGGINS [facility] [id number] [facility] 2023-11-29 15:30:00 2023-11-29 15:30:00 Outpatient ALAN BAEZA [id number] Yady López 2023-10-26 21:57:00 2023-10-26 23:58:00 Emergency X GERARD NOBLES [facility] ERT [id number] [facility] 2023-10-26 21:57:00 2023-10-26 23:58:00 Emergency Gerard Nobles [facility] 1.840.114 350.1.13.10 4.2.7.2.686 [id number] [facility] 2023-10-16 15:53:57 2023-10-16 15:53:57 Outpatient SFA STEPHANIE [id number] Marquis Jairo Hart 2023-09-28 10:15:00 2023-09-28 10:15:00 Outpatient CATRACHITA PRATHER [facility] [id number] [facility] 2023-09-28 00:00:00 2023-09-28 00:00:00 Orders Only Doctor Unassigned, [place] [facility] 1.840.114 350.1.13.10 4.2.7.2.686 [id number] [facility] 2023-09-20 22:18:00 2023-09-20 23:14:00 Emergency X ROBERTO GRIFFITH [facility] ERT [id number] [facility] 2023-09-20 22:18:00 2023-09-20 23:14:00 Emergency Roberto Griffith [facility] 1..840.114 350.1.13.10 4.2.7.2.686 [id number] [facility] 2023-07-16 18:45:00 2023-07-16 22:54:00 Emergency X ROBERTO GRIFFITH [facility] ERT [id number] [facility] 2023-07-16 18:45:00 2023-07-16 22:54:00 Emergency Cas Sandi Nacho [facility] 1..840.114 350.1.13.10 4.2.7.2.686 [id number] [facility] 2023-07-03 14:00:00 2023-07-03 14:00:00 Outpatient R VIANEY GARCIA [facility] [id number] [facility] 2023-05-17 15:00:00 2023-05-17 15:24:56 Outpatient R FAROOQ DAVIS [facility] [id number] [facility] 2023-05-17 15:00:00 2023-05-17 15:20:00 Urgent Care Farooq Davis Unknown, Attending [facility] 1..840.114 350.1.13.10 4.2.7.2.686 [id number] [facility] 2023-03-27 13:30:00 2023-03-27 13:30:00 Outpatient R JOYCE LOPEZ [facility] [id number] [facility] 2023-03-13 00:00:00 2023-03-13 00:00:00 Telephone Joyce Lopez [facility] 1.2.840.114 350.1.13.10 4.2.7.2.686 [id number] [facility] 2023-01-05 08:03:00 2023-01-05 09:46:00 Emergency X ROBERTO GRIFFITH [facility] ERT [id number] [facility] 2023-01-05 08:03:00 2023-01-05 09:46:00 Emergency Roberto Griffith [facility] 1.2840.114 350.1.13.10 4.2.7.2.686 [id number] [facility] 2022-12-27 11:00:00 2022-12-27 12:13:57 Outpatient R JOYCE LOPEZ [facility] [id number] [facility] 2022-12-27 11:00:00 2022-12-27 12:13:57 Office Visit Joyce Lopez [facility] 1.2.840.114 350.1.13.10 4.2.7.2.686 [id number] [facility] 2022-12-27 00:00:00 2022-12-27 00:00:00 Orders Only Doctor Unassigned, [place] [facility] 1.2.840.114 350.1.13.10 4.2.7.2.686 [id number] [facility] 2022-09-27 20:33:00 2022-09-27 21:45:00 Emergency X ALEXIS CAMPOS [facility] ERT [id number] [facility] 2022-09-27 20:33:00 2022-09-27 21:45:00 Emergency Alexis Campos [facility] 1.2.840.114 350.1.13.10 4.2.7.2.686 [id number] [facility] 2022-09-27 10:15:00 2022-09-27 10:15:00 Outpatient Cecily RIVERAANNABELLE GORE [facility] [id number] [facility] 2022-09-24 21:55:00 2022-09-24 23:00:00 Emergency X BANDAR CASTILLO [facility] ERT [id number] [facility] 2022-09-24 21:55:00 2022-09-24 23:00:00 Emergency Bandar Castillo S [facility] 1..840.114 350.1.13.10 4.2.7.2.686 [id number] [facility] 2022-01-06 09:56:00 2022-01-06 09:56:00 Outpatient Facundo Almanzar [facility] [id number] [address] [facility] 2021-12-30 00:00:00 2021-12-30 00:00:00 Telephone Mayra Saavedra [facility] 1..840.114 350.1.13.10 4.2.7.2.686 [id number] [facility] 2021-12-29 15:15:00 2021-12-29 15:46:42 Outpatient R MAYRA SAAVEDRA [facility] [id number] [facility] 2021-12-29 15:15:00 2021-12-29 15:46:42 Office Visit Mayra Saavedra [facility] 1..840.114 350.1.13.10 4.2.7.2.686 [id number] [facility] 2021-12-29 00:00:00 2021-12-29 00:00:00 Orders Only Doctor Unassigned, [place] [facility] 1..840.114 350.1.13.10 4.2.7.2.686 [id number] [facility] 2021-12-22 09:45:00 2021-12-22 09:45:00 Outpatient RENETTA JULIEN [facility] [id number] [facility] 2021-12-22 09:45:00 2021-12-22 09:45:00 Outpatient RENETTA JULIEN [facility] [id number] [facility] 2021-12-14 15:00:00 2021-12-14 15:00:00 Outpatient VIANEY RUIZ [facility] [id number] [facility] 2021-12-08 08:53:50 2021-12-08 23:59:00 Outpatient RENETTA JULIEN [facility] [id number] [facility] 2021-12-08 08:45:00 2021-12-08 10:02:07 Outpatient RENETTA JULIEN [facility] [id number] [facility] 2021-12-08 08:45:00 2021-12-08 10:02:07 Outpatient RENETTA JULIEN [facility] [id number] [facility] 2021-12-08 08:45:00 2021-12-08 09:00:00 Office Visit Renetta Coon [facility] [address].840.114 350.1.13.10 4.2.7.2.686 [id number] [facility] 2021-12-01 14:15:00 2021-12-01 14:15:00 Outpatient RENETTA JULIEN [facility] [id number] [facility] 2021-12-01 14:15:00 2021-12-01 14:15:00 Outpatient RENETTA JULIEN [facility] [id number] [facility] 2021-11-29 09:15:00 2021-11-29 09:30:00 Game Agent Visit 2, [facility] Annabelle Jo [facility] 1.840.114 350.1.13.10 4.2.7.2.686 [id number] [facility] 2021-11-29 09:15:00 2021-11-29 09:15:00 Outpatient Cecily JO [facility] [id number] [facility] 2021-11-29 09:15:00 2021-11-29 09:15:00 Outpatient R SANDRO [facility] [id number] [facility] 2021-11-29 08:30:00 2021-11-29 08:30:00 Office Visit Annabelle Jo [facility] 1.2840.114 350.1.13.10 4.2.7.2.686 [id number] [facility] 2021-11-24 00:00:00 2021-11-24 00:00:00 Orders Only Doctor Unassigned, [place] [facility] 1.84.114 350.1.13.10 4.2.7.2.686 [id number] [facility] 2021-11-17 15:00:00 2021-11-17 15:00:00 Outpatient Cecily JO [facility] [id number] [facility] 2021-11-09 09:00:00 2021-11-09 09:00:00 Outpatient R SANDRO [facility] [id number] [facility] 2021-09-21 15:30:00 2021-09-21 15:41:13 Nurse Visit Nurse, [facility] AdumVianey [facility] 1..84.114 350.1.13.10 4.2.7.2.686 [id number] [facility] 2021-09-21 15:30:00 2021-09-21 15:30:00 Outpatient R VIANEY GARCIA [facility] [id number] [facility] 2021-09-13 15:30:00 2021-09-13 15:30:00 Outpatient R VIANEY GARCIA [facility] [id number] [facility] 2021-08-03 15:30:00 2021-08-03 15:30:00 Outpatient R [facility] [id number] [facility] 2021-05-11 15:44:35 2021-05-11 16:44:44 Nurse Visit Nurse, [facility] Samanta Petty [facility] 1..840.114 350.1.13.10 4.2.7.2.686 [id number] [facility] 2021-[facility]11 08:00:00 2021-05-11 08:00:00 Outpatient [facility] [id number] [facility] 2021-05-11 00:00:00 2021-05-11 00:00:00 Orders Only Doctor Unassigned, [place] [facility] 1.840.114 350.1.13.10 4.2.7.2.686 [id number] [facility] 2021-05-10 08:00:00 2021-05-10 08:00:00 Outpatient [facility] [id number] [facility] 2021-05-03 15:00:00 2021-05-03 15:00:00 Outpatient [facility] [id number] [facility] 2021-04-30 00:00:00 2021-04-30 00:00:00 Nurse Triage Lucrecia Williamson [facility] 1.840.114 350.1.13.10 4.2.7.2.686 [id number] [facility] 2021-03-18 15:30:00 2021-03-18 15:30:00 Outpatient [facility] [id number] [facility] 2021-03-16 14:30:00 2021-03-16 14:30:00 Outpatient [facility] [id number] [facility] 2021-03-16 00:00:00 2021-03-16 00:00:00 Telephone AdVianey teague [facility] 1.2.840.114 350.1.13.10 4.2.7.2.686 [id number] [facility] 2021-02-25 10:15:00 2021-02-25 10:15:00 Outpatient Cecily JAYMIE REN[facility]TA [facility] [id number] [facility] 2021-02-17 15:00:00 2021-02-17 15:00:00 Outpatient Cecily JAYMIE [facility] [id number] [facility] 2021-02-11 10:00:00 2021-02-11 10:00:00 Outpatient Cecily JAYMIE [facility] [id number] [facility] 2020-12-15 14:23:49 2020-12-15 14:38:49 Game Agent Visit 2, [facility] AdVianey teague [facility] 1.2.840.114 350.1.13.10 4.2.7.2.686 [id number] [facility] 2020-12-15 13:51:57 2020-12-15 14:18:57 Nurse Visit Nurse, [facility] 1.2.840.114 350.1.13.10 4.2.7.2.686 [id number] [facility] 2020-12-15 14:00:00 2020-12-15 14:00:[address] [facility] [id number] [facility] 2020-12-06 13:30:00 2020-12-06 13:30:00 Outpatient R JASPREETVIANEY [facility] [id number] [facility] 2020-11-20 17:26:00 2020-11-20 17:37:00 Emergency Belinda Hall [facility] 1.2.840.114 350.1.13.10 4.2.7.2.686 [id number] [facility] 2020-11-20 00:00:00 2020-11-20 00:00:00 Orders Only Doctor Unassigned, [place] [facility] 1.2.840.114 350.1.13.10 4.2.7.2.686 [id number] [facility] 2020-11-16 00:00:00 2020-11-16 00:00:00 Case Management Ad[facility]ianey teague [facility] 1.2.840.114 350.1.13.10 4.2.7.2.686 [id number] [facility] 2020-11-09 13:35:56 2020-11-09 15:09:56 Office [facility]ey [facility] 1.2.840.114 350.1.13.10 4.2.7.2.686 [id number] [facility] 2020-11-09 13:30:00 2020-11-09 13:30:00 Outpatient R JASPREET VIANEY [facility] [id number] [facility] 2020-11-08 15:45:00 2020-11-08 15:45:00 Outpatient R ANNABELLE JO [facility] [id number] [facility] 2020-11-05 15:00:00 2020-11-05 15:00:00 Outpatient R JASPREET VIANEY [facility] [id number] [facility] 2020-11-04 14:30:00 2020-11-04 14:30:00 Outpatient R ADUM, VIANEY [facility] [id number] [facility] 2020-11-02 00:00:00 2020-11-02 00:00:00 Telephone Adum, Vianey Hernandez [facility] [place] [facility] 1.2.840.114 350.1.13.10 4.2.7.2.686 [id number] [facility] 2020-09-23 00:00:00 2020-09-23 00:00:00 Orders Only Doctor Unassigned, [place] [facility] 1.2.840.114 350.1.13.10 4.2.7.2.686 [id number] [facility] 2020-09-15 00:00:00 2020-09-15 00:00:00 Case Management Adum, Vianey Hernandez [facility] 1.2.840.114 350.1.13.10 4.2.7.2.686 [id number] [facility] 2020-09-10 00:00:00 2020-09-10 00:00:00 Case Management Adum, Vianey Hernandez [facility] 1.2.840.114 350.1.13.10 4.2.7.2.686 [id number] [facility] 2020-09-09 10:14:30 2020-09-09 10:29:30 Game Agent Visit 2, [facility] Lab Adum, Vianey Hernandez [facility] 1.2.840.114 350.1.13.10 4.2.7.2.686 [id number] [facility] 2020-09-09 08:31:02 2020-09-09 09:58:53 Office Visit Adum, Vianey Hernandez [facility] 1.2.840.114 350.1.13.10 4.2.7.2.686 [id number] [facility] 2020-09-09 09:00:00 2020-09-09 09:00:00 Outpatient R VIANEY GARCIA [facility] [id number] [facility] 2020-09-09 00:00:00 2020-09-09 00:00:00 Orders Only Doctor Unassigned, [place] [facility] 1.2840.114 350.1.13.10 4.2.7.2.686 [id number] [facility] 2020-06-15 00:00:00 2020-06-15 00:00:00 Orders Only Doctor Unassigned, [place] [facility] 1.0.114 350.1.13.10 4.2.7.2.686 [id number] [id number] [facility] 2020-06-07 15:12:17 2020-06-07 15:27:17 Office Visit Renetta Coon [facility] 1..114 350.1.13.10 4.2.7.2.686 [id number] [facility] 2020-06-07 15:00:00 2020-06-07 15:00:00 Outpatient R JAYMIE [facility] [id number] [facility] 2020-05-24 05:58:00 2020-05-24 09:24:00 Hospital Encounter Les Huggins [facility] 1.114 350.1.13.10 4.2.7.2.686 [id number] [facility] 2020-05-22 13:24:32 2020-05-22 13:44:32 Laboratory Only Lab, Adc Fam Pob Page Hol[facility] 1..114 350.1.13.10 4.2.7.2.686 [id number] [facility] 2020-05-22 13:20:00 2020-05-22 13:20:00 Outpatient PAGE BALDERAS [facility] [id number] [facility] 2020-05-21 11:00:00 2020-05-21 11:00:00 Outpatient R PANKAJ REESE [facility] [id number] [facility] 2020-05-17 00:00:00 2020-05-17 00:00:00 Prep For Surgery Les Huggins [facility] [place] 1..840.114 350.1.13.10 4.2.7.2.686 [id number] [facility] 2020-05-13 11:14:45 2020-05-13 11:39:37 Office Visit Renetta Coon [facility] [place] 1..840.114 350.1.13.10 4.2.7.2.686 [id number] [facility] 2020-05-13 11:00:00 2020-05-13 11:00:00 Outpatient R LES HUGGINS [facility] [id number] [facility] 2020-05-13 00:00:00 2020-05-13 00:00:00 Letter (Out) Renetta Coon [facility] 1..840.114 350.1.13.10 4.2.7.2.686 [id number] [facility] 2020-05-13 00:00:00 2020-05-13 00:00:00 Letter (Out) Renetta Coon [facility] [place] 1..840.114 350.1.13.10 4.2.7.2.686 [id number] [facility] 2020-05-05 15:15:00 2020-05-05 23:59:00 Hospital Encounter Les Huggins [facility] 1.2.840.114 350.1.13.10 4.2.7.2.686 [id number] [facility] 2020-05-05 00:00:00 2020-05-05 00:00:00 Outpatient R HUGGINSLES [facility] [id number] [facility] 2020-04-15 00:00:00 2020-04-15 00:00:00 Orders Only Doctor Unassigned, [place] [facility] 1.2.840.114 350.1.13.10 4.2.7.2.686 [id number] [facility] 2020-04-08 00:00:00 2020-04-08 00:00:00 Telephone Les Huggins [facility] [place] 1.2.840.114 350.1.13.10 4.2.7.2.686 [id number] [facility] 2020-04-05 14:45:57 2020-04-05 15:00:57 Office Visit Renetta Coon [facility] [place] 1.2.840.114 350.1.13.10 4.2.7.2.686 [id number] [facility] 2020-04-05 15:00:00 2020-04-05 15:00:00 Outpatient R RENETTA COON [facility] [id number] [facility] 2020-04-01 14:00:00 2020-04-01 14:00:00 Outpatient R JAYMIE RENETTA [facility] [id number] [facility] 2020 11:37:49 2020 13:13:00 Emergency Mariaa Rae [facility] 1.2.840.114 350.1.13.10 4.2.7.2.686 [id number] [facility] 2020 11:37:49 2020 13:13:00 Emergency X MARIAA RAE [facility] ERT [id number] [facility] Results Test Description Test Time Test Comments Results Result Co mments Source [facility] ([id number])2023-10-27 04:49:57* Test Item Value Reference Range Interpretation Comme nts NA (test code = 6022022294) 139 mmol/L 135-145 K (test code = 7785329367) 4.0 mmol/L 3.5-5.0 CL (test code = 2067879381) 108 mmol/L 98-108 CO2 TOTAL (test code = 6380275652) 25 mmol/L 23-31 AGAP (test code = 4487176506) 6 2-16 BUN (test code = 8796814447) 14 mg/dL 7-23 GLUCOSE (test code = 7051469953) 97 mg/dL 70-110 CREATININE (test code = 2160-0) 0.56 mg/dL 0.50-1.04 TOTAL BILI (test code = 3675872560) 0.7 mg/dL 0.1-1.1 CALCIUM (test code = 0081754102) 8.8 mg/dL 8.6-10.6 T PROTEIN (test code = 3126821058) 8.4 g/dL 6.3-8.2 H ALBUMIN (test code = 0285013535) 4.1 g/dL 3.5-5.0 ALK PHOS (test code = 9542587056) 65 U/L 34-122 ALTv (test code = 1742-6) 21 U/L 5-35 AST(SGOT) (test code = 1300943430) 37 U/L 13-40 eGFR (test code = 30416-7) 134.2 mL/min/1.73m2 CKD-EPI eGFR (2020). Assuming creatinine has been stable day-to-day for at least three months, the eGFR indicates Category G1 (>= 90 mL/min/1.73 m2) Lab Interpretation (test code = 58692-9) Abnormal [facility] [id number] 04:36:34* Test Item Value Reference Range Interpretation [...] 33.6 g/dL 31.6-35.1 RDW-SD (test code = 73517-0) 43.0 fL 39.0-49.9 RDW-CV (test code = 788-0) 13.5 % 12.0-15.5 PLT (test code = 777-3) 241 166-358 MPV (test code = 71283-4) 12.1 fL 9.5-12.9 NRBC/100 WBC (test code = 4094558551) 0.0 0.0-10.0 NRBC x10^3 (test code = 1652774406) See_Comment [Automated messa ge] The system which generated this result transmitted reference range: 10*3/?L. The reference range was not used to interpret this result as normal/abnormal. GRAN MAT (NEUT) % (test code = 770-8) 67.8 % IMM GRAN % (test code = 2750154614) 0.60 % LYMPH % (test code = 736-9) 21.2 % MONO % (test code = 5905-5) 8.9 % EOS % (test code = 713-8) 1.0 % BASO % (test code = 706-2) 0.5 % GRAN MAT x10^3(ANC) (test code = 2970048180) 8.58 10*3/uL 1.88-7.09 H IMM GRAN x10^3 (test code = 2943906866) 0.07 10*3/uL 0.00-0.06 H LYMPH x10^3 (test code = 731-0) 2.67 10*3/uL 1.32-3.29 MONO x10^3 (test code = 742-7) 1.12 10*3/uL 0.33-0.92 H EOS x10^3 (test code = 711-2) 0.12 10*3/uL 0.03-0.39 BASO x10^3 (test code = 704-7) 0.06 10*3/uL 0.01-0.07 Lab Interpretation (test code = 18091-8) Abnormal [facility] [id number] 04:27:00* Test Item Value Reference Range Interpretation Comme nts POCT PREG (test code = 1605) Negative On board controls acceptable with C Line (test code = 3574) Yes POCT PREG LOT # (test code = 3575) [id number] POCT PREG TEST DATE ( test code = 3576) 10-01-2024 Lab Interpretation (test cod e = 12932-6) Normal [facility]. METABOLIC PANEL (63244)2023-07-17 02:17:29* Test Item Value Reference Range Interpretation Comme nts NA (test code = 6840159116) 140 mmol/L 135-145 K (test code = 4047155452) 3.9 mmol/L 3.5-5.0 CL (test code = 4334477297) 103 mmol/L 98-108 CO2 TOTAL (test code = 7154645435) 29 mmol/L 23-31 AGAP (test code = 0850575362) 8 2-16 BUN (test code = 1255461835) 10 mg/dL 7-23 GLUCOSE (test code = 0488948719) 95 mg/dL 70-110 CREATININE (test code = 5163992231) 0.84 mg/dL 0.50-1.04 TOTAL BILI (test code = 8318763764) 0.3 mg/dL 0.1-1.1 CALCIUM (test code = 7823802952) 9.1 mg/dL 8.6-10.6 T PROTEIN (test code = 9124338510) 8.4 g/dL 6.3-8.2 H ALBUMIN (test code = 9653251342) 4.5 g/dL 3.5-5.0 ALK PHOS (test code = 0960219989) 80 U/L 34-122 ALTv (test code = 1742-6) 16 U/L 5-35 AST(SGOT) (test code = 9487401775) 22 U/L 13-40 eGFR (test code = 73936-0) 102.2 mL/min/1.73m2 CKD-EPI eGFR (2020). Assuming creatinine has been stable day-to-day for at least three months, the eGFR indicates Category G1 (>= 90 mL/min/1.73 m2) Lab Interpretation (test code = 57334-1) Abnormal [facility] WITH [id number] 02:15:48* Test Item Value Reference Range Interpretation Comme nts WBC (test code = 6690-2) 11.54 See_Comment H [Automated messa ge] The system which generated this result transmitted reference range: 4.30 - 11.10 10*3/?L. The reference range was not used to interpret this result as normal/abnormal. RBC (test code = 789-8) 4.87 See_Comment [Automated messa ge] The system which [...] 33.3 g/dL 31.6-35.1 RDW-SD (test code = 57962-7) 42.6 fL 39.0-49.9 RDW-CV (test code = 788-0) 13.2 % 12.0-15.5 PLT (test code = 777-3) 277 See_Comment [Automated messa ge] The system which generated this result transmitted reference range: 166 - 358 10*3/?L. The reference range was not used to interpret this result as normal/abnormal. MPV (test code = 01305-9) 10.5 fL 9.5-12.9 NRBC/100 WBC (test code = 5448946034) 0.0 See_Comment [Automated me ssage] The system which generated this result transmitted reference range: 0.0 - 10.0 /100 WBCs. The reference range was not used to interpret this result as normal/abnormal. NRBC x10^3 (test code = 2208781581) See_Comment [Automated messa ge] The system which generated this result transmitted reference range: 10*3/?L. The reference range was not used to interpret this result as normal/abnormal. GRAN MAT (NEUT) % (test code = 770-8) 60.3 % IMM GRAN % (test code = 9545421344) 0.30 % LYMPH % (test code = 736-9) 25.9 % MONO % (test code = 5905-5) 10.8 % EOS % (test code = 713-8) 2.0 % BASO % (test code = 706-2) 0.7 % GRAN MAT x10^3(ANC) (test code = 4496651597) 6.95 10*3/uL 1.88-7.09 IMM GRAN x10^3 (test code = 7438911161) 0.04 10*3/uL 0.00-0.06 LYMPH x10^3 (test code = 731-0) 2.99 10*3/uL 1.32-3.29 MONO x10^3 (test code = 742-7) 1.25 10*3/uL 0.33-0.92 H EOS x10^3 (test code = 711-2) 0.23 10*3/uL 0.03-0.39 BASO x10^3 (test code = 704-7) 0.08 10*3/uL 0.01-0.07 H Lab Interpretation (test code = 96437-0) Abnormal [facility] [id number] 01:53:00* Test Item Value Reference Range Interpretation Comme nts POCT PREG (test code = 1605) Negative On board controls acceptable with C Line (test code = 3574) Yes POCT PREG LOT # (test code = 3575) [id number] POCT PREG TEST DATE ( test code = 3576) 2024-11-29 Lab Interpretation (test cod e = 74686-4) [id number] 20:06:00* Test Item Value Reference Range Interpretation Comme nts POCT PREG (test code = 1605) Negative On board controls acceptable with C Line (test code = 3574) Yes POCT PREG LOT # (test code = 3575) POCT PREG TEST DATE ( test code = 3576) [facility] SPECIFIC [id number] 20:01:00* Test Item Value Reference Range Interpretation [...] U APPEAR (test code = 3267) cloudy [facility] SCREEN (ANGELIC) [id number] 19:07:18 * Test Item Value Reference Range Interpretation Comme [facility] Rubella screen IgG (test code = 2265469289) Positive Negative ZORAIDA (test code = ZORAIDA) Positive - Indicat es the patient was exposed to Rubella through infection or vaccination.Negative - Indicates the patient could be susceptible to Rubella infection.Equivocal - A second specimen should be sent. [facility] SCREEN (ANGELIC) [id number] 19:07:18 * Test Item Value Reference Range Interpretation Comme [facility] Rubella screen IgG (test code = 4718566099) Positive Negative ZORAIDA (test code = ZORAIDA) Positive - Indicat es the patient was exposed to Rubella through infection or vaccination.Negative - Indicates the patient could be susceptible to Rubella infection.Equivocal - A second specimen should be sent. [facility] ONLY - SYPHILIS [id number] 17:26:01* Test Item Value Reference Range Interpretation Comme nts Syphilis IgG/IgM (test code = 02996-7) Non-reactive Non-reactive ZORAIDA (test code = ZORAIDA) Non-reactive - No serologic evidence of T. pallidum infection. Cannot exclude incubating or early syphilis. Submit a second specimen in 2-4 weeks if syphilis is clinically suspected. Equivocal - Further testing to follow. Reactive - Further testing to follow. Lab Interpretation (test code = 65203-0) Normal [facility] ONLY - SYPHILIS [id number] 17:26:01* Test Item Value Reference Range Interpretation Comme nts Syphilis IgG/IgM (test code = 69195-6) Non-reactive Non-reactive ZORAIDA (test code = ZORAIDA) Non-reactive - No serologic evidence of T. pallidum infection. Cannot exclude incubating or early syphilis. Submit a second specimen in 2-4 weeks if syphilis is clinically suspected. Equivocal - Further testing to follow. Reactive - Further testing to follow. Lab Interpretation (test code = 68741-6) Normal [facility] (A1C)2022-12-28 15:57:54* Test Item Value Reference Range Interpretation Comme nts HGB A1C (test code = 4548-4) 5.5 % 4.0-5.7 ZORAIDA (test code = ZORAIDA) Reference RangesNormal: <5.7%Prediabetes: 5.7 - 6.4%Diabetes: > 6.5% Lab Interpretation (test code = 31599-2) Normal [facility] (A1C)2022-12-28 15:57:54* Test Item Value Reference Range Interpretation Comme nts HGB A1C (test code = 4548-4) 5.5 % 4.0-5.7 ZORAIDA (test code = ZORAIDA) Reference RangesNormal: <5.7%Prediabetes: 5.7 - 6.4%Diabetes: > 6.5% Lab Interpretation (test code = 63926-7) Normal [facility] AG-AB WITH [id number] 12:20:58* Test Item Value Reference Range Interpretation Comme nts HIV Semi-quantitative (test code = 55978-6) 0.07 Negative ZORAIDA (test code = ZROAIDA) Non-reactive for HIV-1 antigen and HIV-1/HIV-2 antibodies. ?No laboratory evidence of HIV infection. ?Repeat in 2-4 weeks if acute HIV infection is suspected. [facility] WITH [id number] 12:20:58* Test Item Value Reference Range Interpretation Comme nts HIV Semi-quantitative (test code = 14286-7) 0.07 Negative ZORAIDA (test code = ZORAIDA) Non-reactive for HIV-1 antigen and HIV-1/HIV-2 antibodies. ?No laboratory evidence of HIV infection. ?Repeat in 2-4 weeks if acute HIV infection is suspected. [facility] [id number] 09:03:31* Test Item Value Reference Range Interpretation Comme nts HCV Ab (test code = 77556-8) Negative HCV Semi-Quantitative (test code = 97947-8) 0.02 [facility] [id number] 09:03:31* Test Item Value Reference Range Interpretation Comme nts HCV Ab (test code = 63026-8) Negative HCV Semi-Quantitative (test code = 11455-8) 0.02 [facility] Hospital[facility]ID STIMULATING [id number] 08:28:04 * Test Item Value Reference Range Interpretation Comme nts TSH (test code = 1209340396) 0.99 See_Comment [Automated messa ge] The system which generated this result transmitted reference range: 0.45 - 4.70 mIU/L. The reference range was not used to interpret this result as normal/abnormal. Lab Interpretation (test code = 92495-6) Normal [facility]IM[facility] [id number] 08:28:04 * Test Item Value Reference Range Interpretation Comme nts TSH (test code = 0721468147) 0.99 See_Comment [Automated messa ge] The system which generated this result transmitted reference range: 0.45 - 4.70 mIU/L. The reference range was not used to interpret this result as normal/abnormal. Lab Interpretation (test code = 40972-8) Normal [facility] WITH [id number] 07:54:04* Test Item Value Reference Range Interpretation [...] 32.7 g/dL 31.6-35.1 RDW-SD (test code = 76575-4) 42.5 fL 39.0-49.9 RDW-CV (test code = 788-0) 13.0 % 12.0-15.5 PLT (test code = 777-3) 232 See_Comment [Automated [employer]] The system which generated this result transmitted reference range: 166 - 358 10*3/?L. The reference range was not used to interpret this result as normal/abnormal. MPV (test code = 91878-6) 11.5 fL 9.5-12.9 NRBC/100 WBC (test code = 2484857219) 0.0 See_Comment [Automated [employer] ssage] The system which generated this result transmitted reference range: 0.0 - 10.0 /100 WBCs. The reference range was not used to interpret this result as normal/abnormal. NRBC x10^3 (test code = 4900735202) See_Comment [Automated [employer]] The system which generated this result transmitted reference range: 10*3/?L. The reference range was not used to interpret this result as normal/abnormal. GRAN MAT (NEUT) % (test code = 770-8) 57.6 % IMM GRAN % (test code = 9377525541) 0.20 % LYMPH % (test code = 736-9) 29.9 % MONO % (test code = 5905-5) 8.6 % EOS % (test code = 713-8) 2.7 % BASO % (test code = 706-2) 1.0 % GRAN MAT x10^3(ANC) (test code = 1643039584) 5.43 10*3/uL 1.88-7.09 IMM GRAN x10^3 (test code = 7305130065) 0.00-0.06 LYMPH x10^3 (test code = 731-0) 2.81 10*3/uL 1.32-3.29 MONO x10^3 (test code = 742-7) 0.81 10*3/uL 0.33-0.92 EOS x10^3 (test code = 711-2) 0.25 10*3/uL 0.03-0.39 BASO x10^3 (test code = 704-7) 0.09 10*3/uL 0.01-0.07 H Lab Interpretation (test code = 05722-7) Abnormal [facility] acute [facility] WITH [id number] 07:54:04* Test Item Value Reference Range Interpretation Comme nts WBC (test code = 6690-2) 9.41 See_Comment [Automated [employer]] The system which generated this result transmitted reference range: 4.30 - 11.10 10*3/?L. The reference range was not used to interpret this result as normal/abnormal. RBC (test code = 789-8) 4.84 See_Comment [Automated [employer]] The system which generated this result [...] 32.7 g/dL 31.6-35.1 RDW-SD (test code = 92731-0) 42.5 fL 39.0-49.9 RDW-CV (test code = 788-0) 13.0 % 12.0-15.5 PLT (test code = 777-3) 232 See_Comment [Automated messa ge] The system which generated this result transmitted reference range: 166 - 358 10*3/?L. The reference range was not used to interpret this result as normal/abnormal. MPV (test code = 84340-8) 11.5 fL 9.5-12.9 NRBC/100 WBC (test code = 7475315107) 0.0 See_Comment [Automated [employer] ssage] The system which generated this result transmitted reference range: 0.0 - 10.0 /100 WBCs. The reference range was not used to interpret this result as normal/abnormal. NRBC x10^3 (test code = 8530745956) See_Comment [Automated messa ge] The system which generated this result transmitted reference range: 10*3/?L. The reference range was not used to interpret this result as normal/abnormal. GRAN MAT (NEUT) % (test code = 770-8) 57.6 % IMM GRAN % (test code = 9314395343) 0.20 % LYMPH % (test code = 736-9) 29.9 % MONO % (test code = 5905-5) 8.6 % EOS % (test code = 713-8) 2.7 % BASO % (test code = 706-2) 1.0 % GRAN MAT x10^3(ANC) (test code = 6942125963) 5.43 10*3/uL 1.88-7.09 IMM GRAN x10^3 (test code = 1263214289) 0.00-0.06 LYMPH x10^3 (test code = 731-0) 2.81 10*3/uL 1.32-3.29 MONO x10^3 (test code = 742-7) 0.81 10*3/uL 0.33-0.92 EOS x10^3 (test code = 711-2) 0.25 10*3/uL 0.03-0.39 BASO x10^3 (test code = 704-7) 0.09 10*3/uL 0.01-0.07 H Lab Interpretation (test code = 71325-7) Abnormal [facility] [id number] 16:47:00* Test Item Value Reference Range Interpretation Comme nts POCT PREG (test code = 1605) Negative On board controls acceptable with C Line (test code = 3574) Yes POCT PREG LOT # (test code = 3575) POCT PREG TEST DATE ( test code = 3576) [facility] [id number] 16:47:00* Test Item Value Reference Range Interpretation Comme nts POCT PREG (test code = 1605) Negative On board controls acceptable with C Line (test code = 3574) Yes POCT PREG LOT # (test code = 3575) POCT PREG TEST DATE ( test code = 3576) [facility] [id number] 04:35:00* Test Item Value Reference Range Interpretation Comme nts POCT PREG (test code = 1605) negative On board controls acceptable with C Line (test code = 3574) present POCT PREG LOT # (test code = 3575) [id number] POCT PREG TEST DATE ( test code = 3576) 2023-11-25 Lab Interpretation (test cod e = [address]-4) [facility]* Test Item Value Reference Range Interpretation Comme nts SURGICAL (test code = SR) Cecily PEREZ DATE: 01/17/22 [place] - Lab PAGE 1 RUN TIME: 1221 Specimen Inquiry RUN USER: INTERFACE P ATIENT: KATRIN PEREZ LOC: [facility] U #: [id number] AGE/SX: 16/F ROOM: RE01/06/22REG DR: Facundo Kwon MD : 03 BED: DIS: STATUS: [facility] TLOC: SPEC #: [id number] RECD: 01/09/22 STATUS: [facility] #: [id number] KI: 01/06/[address] [facility] [address]: Facundo Kwon MD ENTERED: 01/09/22 SP TYPE: SURGICAL OTHR DR: DOES_NOT KNOW ORDERED: 10302/2, 37601, ANATOMIC SPEC COPIES TO: DOES_NOT KNOW Facundo Kwon MD [address] [place] [address] PROCEDURES: [id number] (01/09/22) 71735 (01/10/22) TISSUES: A. DUODENUM BIOPSY B. STOMACH [...] ON NEXT PAGE R UN DATE: 01/17/22 [facility] ([facility]) PAGE 2 RUN TIME: 1221 Specimen Inquiry RUN USER: INTERFACE S PEC #: [id number] PATIENT: KATRIN PEREZ #[id number] (Continued) GROSS DESCRIPTION (Continued) Technical component excluding immunohistochemistry is performed at [facility], [address] [place] [address] Technical component of all immunohistochemistry is performed at [email or web address], [address] [place] [address], [address], [place] [address] Immunohistochemistry: This test was developed and its [...] 01/17/22 1221 END OF REPORT UR HCG [id number] 12:02:00* Test Item Value Reference Range Interpretation Comme nts UR HCG QUAL (test code = HCGQLU) NEGATIVE This HCGQL test is NOT applicable for MALE patients.Check with nurse about probable order error.If Tumor Marker Test needed, nurse should order test "HCGTU"(Test #[id number]) Notes Date/Time Note Provider Source 2023-10-26 23:53:53 Pt discharged home following ERP eval. Pt given all education and information regarding s/s of worsening condition, the importance of follow up and prescription use and purpose. Pt verbalized understanding. Alert and ambulatory to pov with family. UCE RUNNER Charlie Romero RN [facility] 2023-10-26 21:57:03 Pt given urine cup and placed in the lobby, pt advice to notify nurse with any other concerns or if symptoms worsen. [facility] 2023-10-26 21:53:04 Vaginal bleeding that started today with clots, pt states that she has used 4 pads. Pt c/o lower pelvic and lower back pain. Pt states LMP: 10/13/2023 Nassar RN [facility] 2023-09-20 23:01:05 Pt given printed and verbal discharge instructions regarding lymphadenitis Prescriptions provided Discussed antibiotic therapy and to take until all completed unless adverse reaction occurs - if occurs, discontinue medication and follow up with pcp/seek medical attention Pt verbalized understanding of instructions, pt awake alert oriented, resp reg unlabored, skin w/d, color appropriate for race, moves all ext well,pt encouraged to follow up with pcp Advised to seek medical attention for new/prolonged/worsening of symptoms No adverse reaction to meds given in ER noted upon discharge Awake, alert oriented, resp reg unlabored, skin w/d, pt leaving amb with steady gait, in no apparent distress Leger RN [facility] 2023-09-20 22:13:39 Pt arrives ambulatory to ED reporting that her lymph nodes are swollen and has been since she was here last time. After review pt was seen here 07/16/2023. She also wanted to be checked for all STD's. Hall RN [facility] 2022-01-06 15:10:00 [facility] ([facility]) Post Anesthesia Evaluation REPORT#:[id number] REPORT STATUS: Signed DATE:01/06/22 TIME: 1510 PATIENT: KATRIN PEREZ UNIT #: [id number] ROOM/BED: : 03 AGE: 16 SEX: F ATTEND: Facundo Kwon MD ADM AUTHOR: James Conrad MD * ALL edits or amendments must be made on the electronic/computer document * Post Anesthesia Evaluation Anes. changes from pre-op eval ORM Surgeries: Surgery Date and Time: 01/06/2022 1040 Proposed Primary Procedure: ESOPHAGOGASTRODUODENOSCOPY Anesthetic: TIVA Date: 01/06/22 Level of consciousness: patient awake, able to answer questions, participate in this eval. Vital signs: Last Documented: Result Date Time Pulse Ox 100 01/06 1413 B/P 121/73 01/06 1413 O2 Delivery Room air 01/06 141 Temp 36.7 01/06 141 Pulse 87 01/06 1413 Resp 16 01/06 1413 Cardiovascular: CV system stable, vital signs stable Respiratory/Airway: respiratory system stable, maintains without support Pain: adequately controlled Hydration: adequate, euvolemic Temp status: greater than 96.8F, normothermic Presence of N/V: no Anesthesia complications: no Other changes requiring f/u: none Conclusions: no apparent anes. issues, outpts eval prior DC home at 1511 RPT #:[id number] END OF REPORT [facility] 2022-01-06 13:42:00 [id number] [facility] PATIENT NAME: KATRIN PEREZ ADMIT DATE: 01/06/22 ACCOUNT NO: [id number] ROOM NO: AGE: 16 REPORT TYPE: ENDOSCOPY REPORT SEX: F DATE OF : 03 ADMITTING PHYSICIAN: ATTENDING PHYSICIAN:Facundo Kwon MD Patient Name: Katrin Perez Attending MD: Facundo Kwon MD Procedure Date: 01/06/2022 1:42 PM Date of : 2005 Procedure: Upper GI endoscopy Pre Procedure Diagnosis: Epigastric abdominal pain, Functional Dyspepsia Assistants: Facundo Kwon MD Anesthesia: [...] Estimated Blood Loss: Estimated blood loss was minimal. Post Procedure Diagnosis: - Normal esophagus. - Normal stomach. Biopsied. - Duodenitis. Biopsied. - Normal second portion of the duodenum. Biopsied. Recommendation: - Patient has a contact number available [...] 1:42 PM Procedure Code(s): --- Professional --- 20971, Esophagogastroduodenoscopy, flexible, transoral; with biopsy, single or multiple Diagnosis Code(s): --- Professional --- K29.80, Duodenitis without bleeding R10.13, Epigastric pain K30, Functional dyspepsia CPT copyright 2020 [employer]. All rights reserved. The codes documented in this report are preliminary and upon physician coder review may be revised to meet current compliance requirements. Scope In: Scope Out: Provation {[id number]}. pdf ProVation FT PDF PATIENT NAME: KATRIN PEREZ at 1359 PATIENT NAME: KATRIN PEREZ [facility]
[2024-05-02 16:59] LABS: Specific Gravity 1.025 (1.005-1.030)
[2024-05-02 17:00] LABS: Specific Gravity 1.026 (1.005-1.030); Urine Bacteria None Seen /HPF (<20); Urine Bilirubin NEGATIVE (Negative); Urine Blood Negative (Negative); Urine Clarity Turbid (Clear); Urine Color Light-Yellow (Yellow); Urine Culture Reflex Order NOT NEEDED; Urine Glucose NEGATIVE (Negative); Urine Ketones NEGATIVE (Negative); Urine Micro Reflex YN NO BILL MICROSCOPIC; Urine Mucus Slight /HPF (None Seen); Urine Nitrite NEGATIVE (Negative); Urine Protein NEGATIVE (Negative); Urine RBC <5 /HPF (None Seen); Urine Urobilinogen Normal (Normal); Urine WBC <5 /HPF (<5)
[2024-05-02 17:02] LABS: Absolute Basophils 0.1 K/uL (0-0.5); Absolute Eosinophils 0.5 K/uL (0-0.5); Absolute Lymphocytes (CBC) 3.4 K/uL (0.7-4.9); Absolute Monocytes 1.3 K/uL (0.1-1.3); Basophils % 1.1 % (0-1.3); Eosinophils % 3.6 % (0-4.4); Hematocrit 42.7 % (36.0-45.0); Lymphocytes % 25.3 % (15.3-44.8); MCH 27.8 pg (27.0-35.0); MCHC 32.7 g/dL (32.0-36.0); MCV 84.9 fL (80-100); MPV 9.9 fL (7.6-11.3); Monocytes % 9.8 % (3.3-12.3); Neutrophils % 60.2 % (41.7-73.7); Nucleated Red Blood Cells % 0.2 % (0-0); Platelets 195 thou/uL (152-406); RBC Red Blood Cell Count 5.03 M/uL (3.86-4.86); Red Cell Distribution Width 16.4 % (12.1-15.2)
[2024-05-02 17:15] LABS: Anion Gap 8.8 mEq/L (5.0-15.0)
[2024-05-02 17:16] LABS: Potassium 3.8 mEq/L (3.5-5.1)
[2024-05-02] MEDS ORDERED: ONDANSETRON 4 MG/2 ML VIAL ONE (17:52)
[2024-05-02] MEDS ORDERED: KETOROLAC 30 MG/ML INJ ONE (17:52)
[2024-05-02] MEDS ORDERED: NA CHLORIDE 0.9% 1,000 ML ONE (17:53)
[2024-05-02 18:05] LABS: Blood Morphology Comment NOT SEEN (NOT SEEN); Platelet Estimate ADEQ; Platelets Clumped FEW; White Blood Cell Scan OK (OK)
[2024-05-02 18:21] LABS: SARS-CoV-2 Antigen CONTROL BLUE LINE VIS/BG OK; SARS-CoV-2 Antigen Rapid Res Negative (Negative)
--- NOTE | 2024-05-02 18:31 | EDPHYS ---
Physician Documentation [facility] Name: Lizzie Chase Age: 19 yrs Sex: Female : 2005 Arrival Date: 05/02/2024 Time: 15:18 Bed 10 Private MD: ED Physician Varghese Kumar HPI: 05/02 15:34 This 19 yrs old Female presents to ER via Ambulatory with complaints of sb4 Headache, Nausea. 15:34 headache, nausea, and urinary frequency x 3 days. no vomiting, blurry vision, chest sb4 pain, palpitations, diarrhea, abdominal pain. 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 - Infectious Disease History:: Denies. - Social history:: Smoking status: Patient denies any tobacco usage or history of. Patient/guardian denies using alcohol. ROS: 15:34 Constitutional: Negative for fever, chills, and weight loss, sb4 15:34 Abdomen/GI: Positive for nausea, 15:34 : Positive for urinary frequency, 15:34 Neuro: Positive for headache, 15:34 All other systems are negative, Exam: 15:34 Head/Face: Normocephalic, atraumatic. Eyes: Extra-ocular motions intact. Periorbital sb4 areas with no swelling, redness, or edema. ENT: Mucous membranes moist. Cardiovascular: Regular rate and rhythm with a normal S1 and S2. Respiratory: Lungs have equal breath sounds bilaterally, clear to auscultation and percussion. No rales, rhonchi or wheezes noted. No increased work of breathing, no retractions or nasal flaring. Abdomen/GI: Soft, non-tender, no distension. Skin: Warm, dry with normal turgor. Normal color with no rashes, no lesions, and no evidence of cellulitis. 15:34 Constitutional: The patient appears in no acute distress, alert, awake, 15:34 Psych: Affect is flat, Vital Signs: 15:29 BP 136 / 94; Pulse 81; Resp 18; Temp 97.4(TE); Pulse Ox 99% on R/A; Weight 68.04 kg; ld1 Height 5 ft. 0 in. ; 15:29 Pain 0/10; ld1 18:02 BP 117 / 76; Pulse 77; Resp 18; Temp 98.3; Pulse Ox 100% ; ar6 18:44 BP 118 / 74; Pulse 78; Resp 16; Pulse Ox 99% on R/A; ar6 15:29 Body Mass Index 29.29 (68.04 kg, 152.4 cm) ld1 15:29 Pain Scale: Adult ld1 Nicolette Coma Score: 18:31 Eye Response: spontaneous(4). Motor Response: obeys commands(6). Verbal Response: sb4 oriented(5). Total: 15. MDM: 15:30 Patient medically screened. sb4 18:31 Data reviewed: vital signs, nurses notes, lab test result(s), and as a result, I will sb4 discharge patient. Counseling: I had a detailed discussion with the patient and/or guardian regarding the historical points, exam findings, and any diagnostic results supporting the discharge/admit diagnosis, lab results, to return to the emergency department if symptoms worsen or persist or if there are any questions or concerns that arise at home. 05/02 15:34 Order name: UAM; Complete Time: 17:01 sb4 05/02 15:34 Order name: Test, Urine; Complete Time: 17:01 sb4 05/02 15:34 Order name: CBC with Diff; Complete Time: 18:05 sb4 05/02 15:34 Order name: BMP; Complete Time: 17:18 sb4 05/02 17:09 Order name: CBC Smear Scan; Complete Time: 18:05 EDMS 05/02 17:19 Order name: SARS RAPID; Complete Time: 18:27 sb4 05/02 17:19 Order name: Flu; Complete Time: 18:27 sb4 05/02 15:34 Order name: IV Start; Complete Time: 16:47 sb4 Administered Medications: 18:01 Drug: Ketorolac IVP 30 mg IVP once Route: IVP; Site: left hand; ar6 18:47 Follow up: Response: No adverse reaction; Pain is decreased ar6 18:01 Drug: Ondansetron IVP 4 mg IVP once; over 2 minutes Route: IVP; Site: left hand; ar6 18:47 Follow up: Response: No adverse reaction ar6 18:02 Drug: NS 0.9% IV 1000 ml IV at 1 bolus Per protocol; 1000 mL bolus Route: IV; Rate: 1 ar6 bolus; Site: left hand; 18:47 Follow up: Response: No adverse reaction; IV Status: Completed infusion; IV Intake: ar6 1000ml Disposition: 16:25 I was immediately available on-site in the Emergency Department for consultation in the ms3 care of the patient. Disposition Summary: 05/02/24 18:31 Discharge Ordered Notes: Location: Home sb4 Problem: new sb4 Symptoms: have improved sb4 Condition: Stable sb4 Diagnosis - Nausea sb4 - Headache sb4 Followup: sb4 - With: Private Physician - When: 2 - 3 days - Reason: Recheck today's complaints, Re-evaluation by your physician Discharge Instructions: - Discharge Summary Sheet sb4 - Nausea, Adult sb4 - General Headache Without Cause, [id number] sb4 Forms: - Patient Portal Instructions sb4 - Leadership Thank You Letter sb4 Prescriptions: - Zofran 4 mg Oral tablet - take 1 tablet ORAL route every 6 hours As needed; 12 tablet; Refills: 0, sb4 Product Selection Permitted Signatures: Dispatcher [employer] EDMS Varghese Kumar, DO ms3 Jessie Kumar RN RN ld1 Alejandrina Yanez PA-C PA-C sb4 Maryann Min RN RN ar6 Corrections: (The following items were deleted from the chart) 15:30 15:30 PSHx: Knee surgery, left; ld1 ld1
--- NOTE | 2024-05-02 18:31 | ER ---
Nurse's Notes [facility] Name: Lizzie Chase Age: 19 yrs Sex: Female : 2005 Arrival Date: 05/02/2024 Time: 15:18 Bed 10 Private MD: Diagnosis: Nausea;Headache Presentation: 05/02 15:29 Chief complaint: Patient states: headache and nausea, frequent urination. Coronavirus ld1 screen: At this time, the client does not indicate any symptoms associated with coronavirus-19. Ebola Screen: No symptoms or risks identified at this time. Initial Sepsis Screen: Does the patient meet any 2 criteria? No. Patient's initial sepsis screen is negative. Does the patient have a suspected source of infection? No. Patient's initial sepsis screen is negative. Risk Assessment: Do you want to hurt yourself or someone else? Patient reports no desire to harm self or others. Onset of symptoms was May 02, 2024. 15:29 Method Of Arrival: Ambulatory ld1 15:29 Acuity: NACHO 4 ld1 Triage Assessment: 15:30 Headache History: Denies prior headaches. General: Appears in no apparent distress. ld1 comfortable, Behavior is calm, cooperative, appropriate for age. Pain: Complains of pain in face Pain does not radiate. Pain currently is 6 out of 10 on a pain scale. Quality of pain is described as throbbing, Pain began suddenly, Is continuous, Also complains of no other associated symptoms. EENT: No signs and/or symptoms were reported regarding the EENT system. Neuro: Level of Consciousness is awake, alert, obeys commands, Oriented to person, place, time, situation, Appropriate for age. Cardiovascular: Capillary refill < 3 seconds Patient's skin is warm and dry. Respiratory: Airway is patent Respiratory effort is even, unlabored. GI: Abdomen is round non-distended. : No signs and/or symptoms were reported regarding the genitourinary system. Derm: No signs and/or symptoms reported regarding the dermatologic system. Musculoskeletal: No signs and/or symptoms reported regarding the musculoskeletal system. 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 - Infectious Disease History:: Denies. - Social history:: Smoking status: Patient denies any tobacco usage or history of. Patient/guardian denies using alcohol. Screenin:02 [facility] ED Fall Risk Assessment (Adult) History of falling in the last 3 months, ar6 including since admission No falls in past 3 months (0 pts) Confusion or Disorientation No (0 pts) Intoxicated or Sedated No (0 pts) Impaired Gait No (0 pts) Mobility Assist Device Used No (0 pt) Altered Elimination No (0 pt) Score/Fall Risk Level 0 - 2 = Low Risk Oriented to surroundings, Maintained a safe environment, Educated pt \T\ family on fall prevention, incl call for assistance when getting out of bed, Hourly rounding (assess needs \T\ fall precautionary measures) done. Abuse screen: Denies threats or abuse. Denies injuries from another. Nutritional screening: No deficits noted. Tuberculosis screening: No symptoms or risk factors identified. Assessment: 18:02 General: Appears in no apparent distress. comfortable, Behavior is calm, cooperative, ar6 appropriate for age. Pain: Complains of pain in scalp. Neuro: Level of Consciousness is awake, alert, obeys commands, Oriented to person, place, time, situation. Cardiovascular: Capillary refill < 3 seconds. Respiratory: Airway is patent. GI: Abdomen is round non-distended, Reports nausea. : No signs and/or symptoms were reported regarding the genitourinary system. EENT: Oral mucosa is moist. Derm: Skin is intact, is healthy with good turgor, Skin is dry, Skin is pink, warm \T\ dry. Musculoskeletal: No signs and/or symptoms reported regarding the musculoskeletal system. Vital Signs: 15:29 BP 136 / 94; Pulse 81; Resp 18; Temp 97.4(TE); Pulse Ox 99% on R/A; Weight 68.04 kg; ld1 Height 5 ft. 0 in. ; 15:29 Pain 0/10; ld1 18:02 BP 117 / 76; Pulse 77; Resp 18; Temp 98.3; Pulse Ox 100% ; ar6 18:44 BP 118 / 74; Pulse 78; Resp 16; Pulse Ox 99% on R/A; ar6 15:29 Body Mass Index 29.29 (68.04 kg, 152.4 cm) ld1 15:29 Pain Scale: Adult ld1 [place] Coma Score: 18:31 Eye Response: spontaneous(4). Motor Response: obeys commands(6). Verbal Response: sb4 oriented(5). Total: 15. ED Course: 15:20 Patient arrived in ED. mr 15:27 Alejandrina [facility]anez [facility] sb4 15:27 Varghese Kumar DO is Attending Physician. sb4 15:30 Triage completed. ld1 15:30 Arm band placed on right wrist. ld1 16:47 Initial lab(s) drawn, by me, sent to lab. Inserted saline lock: 22 gauge in right em1 wrist, using aseptic technique. Blood collected. Flushed with 10 mL NS. 16:47 BMP Sent. em1 16:47 CBC with Diff Sent. em1 16:47 Test, Urine Sent. em1 16:47 UAM Sent. em1 16:55 Test, Urine Sent. hb 16:55 UAM Sent. hb 16:55 BMP Sent. hb 16:55 CBC with Diff Sent. hb 17:49 Maryann Min, RN is Primary Nurse. ar6 18:01 Flu Sent. ar6 18:01 SARS RAPID Sent. ar6 18:02 No apparent distress. Awaiting lab results. ar6 18:02 Patient has correct armband on for positive identification. Bed in low position. Call ar6 light in reach. Side rails up X 1. Provided Education on: fall precautions and call light. Pulse ox on. NIBP on. Door closed. Noise minimized. Lights dimmed. Warm blanket given. Head of bed elevated. 18:02 No provider procedures requiring assistance completed. IV is patent, is intact. ar6 18:44 IV discontinued, intact, bleeding controlled, No redness/swelling at site. Pressure ar6 dressing applied. Administered Medications: 18:01 Drug: Ketorolac IVP 30 mg IVP once Route: IVP; Site: left hand; ar6 18:47 Follow up: Response: No adverse reaction; Pain is decreased ar6 18:01 Drug: Ondansetron IVP 4 mg IVP once; over 2 minutes Route: IVP; Site: left hand; ar6 18:47 Follow up: Response: No adverse reaction ar6 18:02 Drug: NS 0.9% IV 1000 ml IV at 1 bolus Per protocol; 1000 mL bolus Route: IV; Rate: 1 ar6 bolus; Site: left hand; 18:47 Follow up: Response: No adverse reaction; IV Status: Completed infusion; IV Intake: ar6 1000ml Medication: 18:02 VIS not applicable for this client. ar6 Intake: 18:47 IV: 1000ml; Total: 1000ml. ar6 Outcome: 18:31 Discharge ordered by MD. sb4 18:44 Discharged to home ambulatory, ar6 18:44 Condition: good 18:44 Discharge instructions given to patient, Instructed on discharge instructions, follow up and referral plans. medication usage, Demonstrated understanding of instructions, follow-up care, medications, Prescriptions given X 1, 18:45 Patient left the ED. ar6 Signatures: Amarilys Mar, Reg Reg Tayo Ramirez em1 Hazel Dorman RN RN Jessie Kumar RN RN ld1 Alejandrina Yanez, PA-C PA-C Maryann Rivas, RADHA RN ar6 Corrections: (The following items were deleted from the chart) 15:30 15:30 PSHx: Knee surgery, left; ld1 ld1
[2024-05-02 19:47] VITALS: TEMP 98.3
[2024-05-02 19:48] VITALS: BP 118/74; O2SAT 99
== END 2024-05-02 18:45 | disposition home or self-care (01) ==
LOC: ER 15:18
DX: R11.0 Nausea (principal); R51.9 Headache, unspecified; Z11.52 Encounter for screening for COVID-19
CPT/HCPCS: 96361; 85025; 81001; 80048; 36415; 81025; 87804 ×2; 96375; 96374; 99284; 87811; J2405; J7030

== ENCOUNTER 2024-06-02 00:30 | Emergency (ER) | payer OTHER ==
--- OUTSIDE RECORDS SUMMARY | 2024-06-02 00:36 | XMS REPORT | Continuity of Care Document ---
Author Name Unknown Address [address] [facility] [address] [place] [address] [facility] thconnect Address [address] [facility]. [address] [place] [address] Care Team Providers Care Cooker Loader Name Role Phone Tanna Bolivar Harrell Primary Care Physician [phone]- [phone] LES HUGGINS Attending Clinician Unavailabl e Kristian TERRELL Attending Clinician Unavailable Kristian TERRELL Attending Clinician Unavailable Kristian Denney Attending Clinician [phone] ALAN BAEZA Attending Clinician Unavailable GERARD NOBLES Attending Clinician Unavailable Gerard Suazo Attending Clinician [phone] CATRACHITA NGUYEN Attending Clinician Unavail able Doctor Unassigned, [place] Attending Clinician ROBERTO Echavarria Attending Clinician Unavailable Roberto Griffith MD Attending Clinician [phone] Sandi Cardozo NP Attending Clinician [phone] VIANEY GARCIA Attending Clinician Unavailable FAROOQ DAVIS Attending Clinician Unavailable Farooq Barnett Attending Clinician [phone], Attending Attending Clinician Unavailab JOYCE Kumar Attending Clinician Unavailsiddhartha Lopez CNM Joyce Cral Attending Clinician [phone] WENDY JANE Attending Clinician UnavailWENDY Crane Attending Clinician UnavailALEXIS Shore S Attending Clinician Unavailable Campos PACJudsonya S Attending Clinician [phone] ANNABELLE JO Attending Clinician Unavailable BANDAR CASTILLO Attending Clinician Unavailable Bandar Castillo MD Attending Clinician [phone] Facundo Kwon Attending Clinician Unavailable Mayra Pandey Attending Clinician + [phone] MAYRA SAAVEDRA Attending Clinician Unavailab RENETTA Lam S Attending Clinician Unavailable Renetta Clark S Attending Clinician [phone] , [facility] Attending Clinician Unavailable Annabelle Jo PA-C Attending Clinician [phone] Nurse, [facility] Attending Clinician Un available Vianey Garcia MD Attending Clinician [phone] Samanta Petty MD Attending Clinician [phone] Teri GARCIA, Lucrecia Martínez Attending Clinician Unavailable Belinda Hall DO Attending Clinician [phone] Les Huggins MD Attending Clinician [phone] Lab, [facility] Fam Pob I Attending Clinician Unavailab Page Gorman Attending Clinician [phone] PAGE RED Attending Clinician Unavailable PANKAJ REESE Attending Clinician UnavailMariaa Mccormack NP Attending Clinician [phone] MARIAA RAE Attending Clinician Unavailable LES HUGGINS Admitting Clinician UnavailSANDI Vaughan Admitting Clinician Unavailable KNOW, DOES_NOT Admitting Clinician Unavailable Les Huggins MD Admitting Clinician [phone] BELINDA HALL Admitting Clinician Unavailab niko Payers Payer Name Policy Type Policy Number Effective Date Expirati on Date Source [facility] [id number] 2020 00:00:00 [employer] W/ YADY LÓPEZ OOO [id number] 2024 00:00:00 [facility] SHAYLA DURAN COPAY FOCUS 9 [id number] 2023 00:00:00 Problems Condition Name Condition Details Condition Category Status Onset Date Resolution Date Last Treatment Date Treating Clinician Comments Source Obesity (BMI 30-39.9) Obesity (BMI 30-39.9) Disease Active 12-30 00:00: 00 [facility] BMI 29.0-29.9, adult BMI 29.0-29.9, adult Disease Active 12-29 00:00: 00 [facility] Menorrhagi a with irregular cycle Menorrhagi a with irregular cycle Disease Active 11-09 00:00: 00 [facility] Encounter for other general counseling or advice on contracept ion Encounter for other general counseling or advice on contracept ion Disease Resolve d 12-29 00:00: 00 2022-12-30 00:00:00 2022-12-30 11:00:39 [facility] BMI 29.0-29.9, adult BMI 29.0-29.9, adult Disease Resolve d 505 00:00: 00 2022-12-30 00:00:00 2022-12-30 11:00:33 [facility] Vitamin D deficiency Vitamin D deficiency Disease Resolve d -16 00:00: 00 2022-12-30 00:00:00 2022-12-30 11:00:56 [facility] Depo-Prove ra contracept kamran status Depo-Prove ra contracept kamran status Disease Resolve d 3-16 00:00: 00 2022-12-30 00:00:00 2022-12-30 11:00:37 [facility] Acute medial meniscus tear, left, subsequent encounter Acute medial meniscus tear, left, subsequent encounter Disease Resolve d 9-22 00:00: 00 2022-12-30 00:00:00 2022-12-30 11:00:54 Overview: Formattin g of this note might be different from the original. Added automatic ally from request for surgery [id number] [facility] Allergies, Adverse Reactions, Alerts Allergy Name Allergy Type Status Severity Reaction(s) Onset Date Inactive Date Treating Clinician Comments Source No Known Allergie s DA Active U 01-06 00:00: 00 [facility] NO KNOWN ALLERGIE S Drug Class Active [facility] Social History Social Habit Start Date Stop Date Quantity Comments Source Gender identity [facility] Sexual orientation [facility] History SDOH Alcohol Comment [place] [facility] Alcoholic beverage intake 2023-10-26 00:00:00 2023-10-26 00:00:00 Lifetime non-drinker (finding) [facility] Alcohol intake 2023-10-26 00:00:00 2023-10-26 00:00:00 Lifetime non-drinker (finding) [facility] Exposure to SARS-CoV-2 (event) 2022-12-26 00:00:00 2023-01-05 08:00:[address] [facility] Tobacco use and exposure 2022-12-27 00:00:00 2022-12-27 00:00:00 Smokeless tobacco non-user [facility] History of Social function 2022-12-27 00:00:00 2022-12-27 00:00:00 [facility] History SDOH Alcohol Frequency 2020-04-05 00:00:00 2020-04-05 00:00:[address] [facility] History SDOH Alcohol Std Drinks 2020-04-05 00:00:00 2020-04-05 00:00:[address] [facility] History SDOH Alcohol Binge 2020-04-05 00:00:00 2020-04-05 00:00:[address] [facility] Sex assigned at 2003 00:00:00 2003 00:00:00 [facility] Smoking Status Start Date Stop Date Source Never smoked tobacco [facility] Medications Ordered Medication Name Filled Medication Name Start Date Stop Date Current Medication? Ordering Clinician Indication Dosage Frequency Signature (SIG) Comments Components Source cefdinir 300 mg capsule 2023-08 00:00: 00 06-09 04:59 :00 Yes [id number] 300mg Take 1 capsule by mouth every 12 (twelve) hours for 10 days. [facility] ketorolac (TORADOL) injection 30 mg 10-26 06:00: 00 10-26 05:23 :00 No 30mg 30 mg, Slow IV Push, ONCE, 1 dose, On Sun10/27/23 at 0000, Routine [facility] cefTRIAXone (ROCEPHIN) 1,000 mg in NaCl 0.9% (NS) 100 mL MINI-BAG 10-26 05:15: 00 10-26 05:52 :00 No 1000mg 1,000 mg, IV Piggyback, ONCE, 1 dose, On Sun10/26/23 at 2315, Administer over 30 Minutes, 100 mL
Reas on for Anti-Infec tive: Documented Infection< br>Documen christiano Infection Site: Urine
D uration of Therapy: Other (see Comments) [facility] cefdinir 300 mg capsule 10-25 00:00: 00 11-02 05:59 :00 No [id number] 300mg Take 1 capsule by mouth in the morning and 1 capsule in the evening. Do all this for 7 days. [facility] methylPREDN ISolone 4 mg tablets 09-20 00:00: 00 Yes [id number] Take by mouth SEE-INSTRU CTIONS. follow package directions [facility] amoxicillin -clavulanat e 875-125 mg per tablet 09-20 00:00: 00 Yes [id number] 1{tbl} Take 1 tablet by mouth every 12 (twelve) hours. [facility] iopamidol (ISOVUE 370-500 mL) injection 100 mL 2022-08 03:30: 00 07-17 03:30 :00 No [id number] 100mL 100 mL, Intravenou s, ONCE, 1 dose, On 07/16/23 at 2130, Routine [facility] methylPREDN ISolone 4 mg tablets 2023-1 1-20 00:00: 00 Yes [id number] Take by mouth SEE-INSTRU CTIONS. follow package directions [facility] clindamycin 300 mg capsule 2022-08 1-20 00:00: 00 07-27 05:59 :00 No [id number] 300mg Take 1 capsule by mouth 4 (four) times daily for 10 days. [facility] cefdinir 300 mg capsule 05-17 00:00: 00 05-28 04:59 :00 No [id number] 600mg Take 2 capsules by mouth in the morning for 10 days. [facility] acetaminoph en (TYLENOL) tablet 650 mg 01-05 13:15: 00 01-05 13:14 :00 No 650mg 650 mg, Oral, ONCE, 1 dose, On Sun01/05/23 at 0815, ALLI [facility] amoxicillin 500 mg capsule 01-05 00:00: 00 Yes [id number] 500mg Take 1 capsule by mouth in the morning and 1 capsule at noon and 1 capsule in the evening. [facility] ondansetron 4 mg disintegrat ing tablet 01-05 00:00: 00 Yes [id number] 4mg Take 1 tablet by mouth every 4 (four) hours as needed for Nausea and Vomiting (N/V). [facility] naproxen 500 mg tablet 01-05 00:00: 01-16 04:59 :00 No [id number] 500mg Take 1 tablet by mouth in the morning and 1 tablet in the evening. Take with meals. Do all this for 10 days. [facility] norethindro michelle-teestrad ioL-iron (MICROGESTI N FE) 1.5 mg-30 mcg (21)/75 mg (7) per tablet 12-27 00:00: 00 Yes [id number] 1{tbl} Take 1 tablet by mouth in the morning. [facility] naproxen (NAPROSYN) 500 mg tablet 09-27 00:00: 00 12-27 00:00 :00 No [id number] 500mg Take 1 tablet by mouth in the morning and 1 tablet in the evening. Take with meals. [facility] ibuprofen (IBU) tablet 800 mg 09-25 04:30: 00 09-25 04:33 :00 No 800mg 800 mg, Oral, ONCE, 1 dose, On 09/24/22 at 2230, ALLI [facility] No known medications 12-29 16:08: 37 No [facility] pantoprazol e 40 mg EC tablet 4-11 00:00: 00 12-29 00:00 :00 No 40mg Take 40 mg by mouth daily. [facility] metroNIDAZO LE 500 mg tablet 11-16 00:00: 00 12-29 00:00 :00 No [id number] 500mg Take 1 tablet by mouth every 12 (twelve) hours. [facility] ergocalcife rol, vitamin d2, 1,250 mcg (50,000 unit) capsule 1-15 00:00: 00 12-29 00:00 :00 No [id number] 43685M Take 1 capsule by mouth weekly. [facility] ranitidine (ZANTAC) 150 mg tablet 2 00:00: 00 12-29 00:00 :00 No 150mg Take 1 tablet by mouth 2 (two) times daily. Follow up with your MD for further evaluation and treatment. [facility] Immunizations Ordered Immunization Name Filled Immunization Name Date Status Comments Source [facility] 2022-12-27 00:00:00 Completed HPV9 2022-12-27 00:00:[address] [facility] HPV9 2022-12-27 00:00:[address] [facility] HPV9 2022-12-27 00:00:[address] [facility] Meningococcal Polysaccharide (groups A, C, Y and W-135) conjugate vaccine (MCV4P) 2020-03-30 00:00:00 Completed Meningococcal Polysaccharide (groups A, C, Y and W-135) conjugate vaccine (MCV4P) 2020-03-30 00:00:[address] [facility] Meningococcal Polysaccharide (groups A, C, Y and W-135) conjugate vaccine (MCV4P) 2020-03-30 00:00:[address] [facility] Meningococcal Polysaccharide (groups A, C, Y and W-135) conjugate vaccine (MCV4P) 2020-03-30 00:00:[address] [facility] HPV9 2016-04-17 00:00:00 Completed Meningococcal Polysaccharide (groups A, C, Y and W-135) conjugate vaccine (MCV4P) 2016-04-17 00:00:00 Completed TDAP 2016-04-17 00:00:00 Completed HPV9 2016-04-17 00:00:[address] [facility] Meningococcal Polysaccharide (groups A, C, Y and W-135) conjugate vaccine (MCV4P) 2016-04-17 00:00:[address] [facility] TDAP 2016-04-17 00:00:[address] [facility] HPV9 2016-04-17 00:00:[address] [facility] Meningococcal Polysaccharide (groups A, C, Y and W-135) conjugate vaccine (MCV4P) 2016-04-17 00:00:[address] [facility] TDAP 2016-04-17 00:00:[address] [facility] HPV9 2016-04-17 00:00:[address] [facility] Meningococcal Polysaccharide (groups A, C, Y and W-135) conjugate vaccine (MCV4P) 2016-04-17 00:00:[address] [facility] TDAP 2016-04-17 00:00:[address] [facility] HEPATITIS A 2009-06-30 00:00:00 Completed Varicella (varivax)(chicken pox) 2009-06-30 00:00:00 Completed HEPATITIS A 2009-06-30 00:00:[address] [facility] Varicella (varivax)(chicken pox) 2009-06-30 00:00:[address] [facility] HEPATITIS A 2009-06-30 00:00:[address] [facility] Varicella (varivax)(chicken pox) 2009-06-30 00:00:[address] [facility] HEPATITIS A 2009-06-30 00:00:[address] [facility] Varicella (varivax)(chicken pox) 2009-06-30 00:00:[address] [facility] DTaP, Unspecified Formulation 2007-06-10 00:00:00 Completed HEPATITIS A 2007-06-10 00:00:00 Completed Hib-HbOC 2007-06-10 00:00:00 Completed MMR 2007-06-10 00:00:00 Completed Pneumococcal 7 Conjugate, PCV7 (Prevnar7) 2007-06-10 00:00:00 Completed IPV 2007-06-10 00:00:00 Completed DTaP, Unspecified Formulation 2007-06-10 00:00:[address] [facility] HEPATITIS A 2007-06-10 00:00:[address] [facility] Hib-HbOC 2007-06-10 00:00:[address] [facility] MMR 2007-06-10 00:00:[address] [facility] Pneumococcal 7 Conjugate, PCV7 (Prevnar7) 2007-06-10 00:00:[address] [facility] IPV 2007-06-10 00:00:[address] [facility] DTaP, Unspecified Formulation 2007-06-10 00:00:[address] [facility] HEPATITIS A 2007-06-10 00:00:[address] [facility] Hib-HbOC 2007-06-10 00:00:[address] [facility] MMR 2007-06-10 00:00:[address] [facility] Pneumococcal 7 Conjugate, PCV7 (Prevnar7) 2007-06-10 00:00:[address] [facility] IPV 2007-06-10 00:00:[address] [facility] DTaP, Unspecified Formulation 2007-06-10 00:00:[address] [facility] HEPATITIS A 2007-06-10 00:00:[address] [facility] Hib-HbOC 2007-06-10 00:00:[address] [facility] MMR 2007-06-10 00:00:[address] [facility] Pneumococcal 7 Conjugate, PCV7 (Prevnar7) 2007-06-10 00:00:[address] [facility] IPV 2007-06-10 00:00:[address] [facility] DTaP, Unspecified Formulation 2004-03-30 00:00:[address] [facility] HIB 4 Dose Schedule 2004-03-30 00:00:00 Completed MMR 2004-03-30 00:00:00 Completed IPV 2004-03-30 00:00:00 Completed Varicella (varivax)(chicken pox) 2004-03-30 00:00:00 Completed DTaP, Unspecified Formulation 2004-03-30 00:00:[address] [facility] HIB 4 Dose Schedule 2004-03-30 00:00:[address] [facility] MMR 2004-03-30 00:00:[address] [facility] IPV 2004-03-30 00:00:[address] [facility] Varicella (varivax)(chicken pox) 2004-03-30 00:00:[address] [facility] DTaP, Unspecified Formulation 2004-03-30 00:00:[address] [facility] HIB 4 Dose Schedule 2004-03-30 00:00:[address] [facility] MMR 2004-03-30 00:00:[address] [facility] IPV 2004-03-30 00:00:[address] [facility] Varicella (varivax)(chicken pox) 2004-03-30 00:00:[address] [facility] DTaP, Unspecified Formulation 2004-03-30 00:00:[address] [facility] HIB 4 Dose Schedule 2004-03-30 00:00:[address] [facility] MMR 2004-03-30 00:00:[address] [facility] IPV 2004-03-30 00:00:[address] [facility] Varicella (varivax)(chicken pox) 2004-03-30 00:00:[address] [facility] DTaP, Unspecified Formulation 2003 00:00:00 Completed Hep B, Adol or Pedi Dosage 2003 00:00:00 Completed HIB 4 Dose Schedule 2003 00:00:00 Completed Pneumococcal 7 Conjugate, PCV7 (Prevnar7) 2003 00:00:00 Completed IPV 2003 00:00:00 Completed DTaP, Unspecified Formulation 2003 00:00:[address] [facility] Hep B, Adol or Pedi Dosage 2003 00:00:[address] [facility] HIB 4 Dose Schedule 2003 00:00:[address] [facility] Pneumococcal 7 Conjugate, PCV7 (Prevnar7) 2003 00:00:[address] [facility] IPV 2003 00:00:[address] [facility] DTaP, Unspecified Formulation 2003 00:00:[address] [facility] Hep B, Adol or Pedi Dosage 2003 00:00:[address] [facility] HIB 4 Dose Schedule 2003 00:00:[address] [facility] Pneumococcal 7 Conjugate, PCV7 (Prevnar7) 2003 00:00:[address] [facility] IPV 2003 00:00:[address] [facility] DTaP, Unspecified Formulation 2003 00:00:[address] [facility] Hep B, Adol or Pedi Dosage 2003 00:00:[address] [facility] HIB 4 Dose Schedule 2003 00:00:[address] [facility] Pneumococcal 7 Conjugate, PCV7 (Prevnar7) 2003 00:00:[address] [facility] IPV 2003 00:00:[address] [facility] DTaP, Unspecified Formulation 2003 00:00:00 Completed Hep B, Adol or Pedi Dosage 2003 00:00:00 Completed HIB 4 Dose Schedule 2003 00:00:00 Completed Pneumococcal 7 Conjugate, PCV7 (Prevnar7) 2003 00:00:00 Completed IPV 2003 00:00:00 Completed DTaP, Unspecified Formulation 2003 00:00:[address] [facility] Hep B, Adol or Pedi Dosage 2003 00:00:[address] [facility] HIB 4 Dose Schedule 2003 00:00:[address] [facility] Pneumococcal 7 Conjugate, PCV7 (Prevnar7) 2003 00:00:[address] [facility] IPV 2003 00:00:[address] [facility] DTaP, Unspecified Formulation 2003 00:00:[address] [facility] Hep B, Adol or Pedi Dosage 2003 00:00:[address] [facility] HIB 4 Dose Schedule 2003 00:00:[address] [facility] Pneumococcal 7 Conjugate, PCV7 (Prevnar7) 2003 00:00:[address] [facility] IPV 2003 00:00:[address] [facility] DTaP, Unspecified Formulation 2003 00:00:[address] [facility] Hep B, Adol or Pedi Dosage 2003 00:00:[address] [facility] HIB 4 Dose Schedule 2003 00:00:[address] [facility] Pneumococcal 7 Conjugate, PCV7 (Prevnar7) 2003 00:00:[address] [facility] IPV 2003 00:00:[address] [facility] Hep B, Adol or Pedi Dosage 2003 00:00:00 Completed Hep B, Adol or Pedi Dosage 2003 00:00:[address] [facility] Hep B, Adol or Pedi Dosage 2003 00:00:[address] [facility] Hep B, Adol or Pedi Dosage 2003 00:00:[address] [facility] DTaP, Unspecified Formulation Unknown Completed [facility] HEPATITIS A Unknown Completed [facility] Hep B, Adol or Pedi Dosage Unknown Completed [facility] Hib-HbOC Unknown Completed [facility] HIB 4 Dose Schedule Unknown Completed [facility] HPV9 [address] [facility] Meningococcal Polysaccharide (groups A, C, Y and W-135) conjugate vaccine (MCV4P) Unknown Completed [facility] MMR Unknown Completed [facility] Pneumococcal 7 Conjugate, PCV7 (Prevnar7) Unknown Completed [facility] IPV Unknown Completed [facility] Varicella (varivax)(chicken pox) Unknown Completed [facility] TDAP Unknown Completed [facility] DTaP, Unspecified Formulation Unknown Completed [facility] HEPATITIS A Unknown Completed [facility] Hep B, Adol or Pedi Dosage Unknown Completed [facility] Hib-HbOC Unknown Completed [facility] HIB 4 Dose Schedule Unknown Completed [facility] HPV9 [address] [facility] Meningococcal Polysaccharide (groups A, C, Y and W-135) conjugate vaccine (MCV4P) Unknown Completed [facility] MMR Unknown Completed [facility] Pneumococcal 7 Conjugate, PCV7 (Prevnar7) Unknown Completed [facility] IPV Unknown Completed [facility] Varicella (varivax)(chicken pox) Unknown Completed [facility] TDAP Unknown Completed [facility] DTaP, Unspecified Formulation Unknown Completed [facility] HEPATITIS A Unknown Completed [facility] Hep B, Adol or Pedi Dosage Unknown Completed [facility] Hib-HbOC Unknown Completed [facility] HIB 4 Dose Schedule Unknown Completed [facility] HPV9 [address] [facility] Meningococcal Polysaccharide (groups A, C, Y and W-135) conjugate vaccine (MCV4P) Unknown Completed [facility] MMR Unknown Completed [facility] Pneumococcal 7 Conjugate, PCV7 (Prevnar7) Unknown Completed [facility] IPV Unknown Completed [facility] Varicella (varivax)(chicken pox) Unknown Completed [facility] TDAP Unknown Completed [facility] DTaP, Unspecified Formulation Unknown Completed [facility] HEPATITIS A Unknown Completed [facility] Hep B, Adol or Pedi Dosage Unknown Completed [facility] Hib-HbOC Unknown Completed [facility] HIB 4 Dose Schedule Unknown Completed [facility] HPV9 [address] Com[address] [facility] Meningococcal Polysaccharide (groups A, C, Y and W-135) conjugate vaccine (MCV4P) Unknown Completed [facility] MMR Unknown Completed [facility] Pneumococcal 7 Conjugate, PCV7 (Prevnar7) Unknown Completed [facility] IPV Unknown Completed [facility] Varicella (varivax)(chicken pox) Unknown Completed [facility] TDAP Unknown Completed [facility] DTaP, Unspecified Formulation Unknown Completed [facility] HEPATITIS A Unknown Completed [facility] Hep B, Adol or Pedi Dosage Unknown Completed [facility] Hib-HbOC Unknown Completed [facility] HIB 4 Dose Schedule Unknown Completed [facility] HPV9 [address] Com[address] [facility] Meningococcal Polysaccharide (groups A, C, Y and W-135) conjugate vaccine (MCV4P) Unknown Completed [facility] MMR Unknown Completed [facility] Pneumococcal 7 Conjugate, PCV7 (Prevnar7) Unknown Completed [facility] IPV Unknown Completed [facility] Varicella (varivax)(chicken pox) Unknown Completed [facility] TDAP Unknown Completed [facility] Vital Signs Vital Name Observation Time Observation Value Comments S ource Systolic blood pressure 2024-05-29 21:17:00 135 mm[Hg] [facility] Diastolic blood pressure 2024-05-29 21:17:00 91 mm[Hg] [facility] Heart rate 2024-05-29 21:17:00 102 /min [facility] Body temperature 2024-05-29 21:17:[address] [place] [facility] Respiratory rate 2024-05-29 21:17:00 16 /min [facility] Body height 2024-05-29 21:17:00 152.4 cm [facility] Body weight 2024-05-29 21:17:00 79.833 kg [facility] BMI 2024-05-29 21:17:00 34.37 kg/m2 [facility] Oxygen saturation in Arterial blood by Pulse oximetry 2024-05-29 21:17:00 100 /min [facility] Systolic blood pressure 2023-10-27 03:54:00 135 mm[Hg] [facility] Diastolic blood pressure 2023-10-27 03:54:00 103 mm[Hg] [facility] Heart rate 2023-10-27 03:54:00 95 /min [facility] Body temperature 2023-10-27 03:54:00 36.72 [place] [facility] Respiratory rate 2023-10-27 03:54:00 18 /min [facility] Body height 2023-10-27 03:54:00 152.4 cm [facility] Body weight 2023-10-27 03:54:00 70.761 kg [facility] BMI 2023-10-27 03:54:00 30.47 kg/m2 [facility] Oxygen saturation in Arterial blood by Pulse oximetry 2023-10-27 03:54:00 100 /min [facility] Systolic blood pressure 2023-09-21 04:15:00 120 mm[Hg] [facility] Diastolic blood pressure 2023-09-21 04:15:00 68 mm[Hg] [facility] Heart rate 2023-09-21 04:15:00 93 /min [facility] Body temperature 2023-09-21 04:15:[address] [facility] Respiratory rate 2023-09-21 04:15:00 16 /min [facility] Body height 2023-09-21 04:15:00 152.4 cm [facility] Body weight 2023-09-21 04:15:00 70.761 kg [facility] BMI 2023-09-21 04:15:00 30.47 kg/m2 [facility] Oxygen saturation in Arterial blood by Pulse oximetry 2023-09-21 04:15:00 100 /min [facility] Systolic blood pressure 2023-07-17 03:00:00 122 mm[Hg] [facility] Diastolic blood pressure 2023-07-17 03:00:00 86 mm[Hg] [facility] Heart rate 2023-07-17 03:00:00 73 /min [facility] Respiratory rate 2023-07-17 03:00:00 16 /min [facility] Oxygen saturation in Arterial blood by Pulse oximetry 2023-07-17 03:00:00 100 /min [facility] Body weight 2023-07-17 00:43:00 69.854 kg [facility] BMI 2023-07-17 00:43:00 30.08 kg/m2 [facility] Body temperature 2023-07-17 00:43:[address] [facility] Body height 2023-07-17 00:43:00 152.4 cm [facility] Systolic blood pressure 2023-05-17 19:58:00 112 mm[Hg] [facility] Diastolic blood pressure 2023-05-17 19:58:00 76 mm[Hg] [facility] Heart rate 2023-05-17 19:58:00 71 /min [facility] Body temperature 2023-05-17 19:58:[address] [facility] Respiratory rate 2023-05-17 19:58:00 16 /min [facility] Body height 2023-05-17 19:58:00 152.4 cm [facility] Body weight 2023-05-17 19:58:00 66.225 kg [facility] BMI 2023-05-17 19:58:00 28.51 kg/m2 [facility] Oxygen saturation in Arterial blood by Pulse oximetry 2023-05-17 19:58:00 98 /min [facility] Body temperature 2023-01-05 14:10:[address] [facility] Systolic blood pressure 2023-01-05 14:00:00 119 mm[Hg] [facility] Diastolic blood pressure 2023-01-05 14:00:00 79 mm[Hg] [facility] Heart rate 2023-01-05 14:00:00 89 /min [facility] Respiratory rate 2023-01-05 14:00:00 15 /min [facility] Oxygen saturation in Arterial blood by Pulse oximetry 2023-01-05 14:00:00 96 /min [facility] Body height 2023-01-05 13:02:00 152.4 cm [facility] Body weight 2023-01-05 13:02:00 72.576 kg [facility] BMI 2023-01-05 13:02:00 31.25 kg/m2 [facility] Systolic blood pressure 2022-12-27 16:46:00 105 mm[Hg] [facility] Diastolic blood pressure 2022-12-27 16:46:00 70 mm[Hg] [facility] Heart rate 2022-12-27 16:46:00 71 /min [facility] Body temperature 2022-12-27 16:46:[address] [facility] Respiratory rate 2022-12-27 16:46:00 18 /min [facility] Body height 2022-12-27 16:46:00 152.4 cm [facility] Body weight 2022-12-27 16:46:00 73.539 kg [facility] BMI 2022-12-27 16:46:00 31.66 kg/m2 [facility] Systolic blood pressure 2022-09-28 02:27:00 133 mm[Hg] [facility] Diastolic blood pressure 2022-09-28 02:27:00 91 mm[Hg] [facility] Heart rate 2022-09-28 02:27:00 94 /min [facility] Body temperature 2022-09-28 02:27:[address] [facility] Respiratory rate 2022-09-28 02:27:00 16 /min [facility] Body height 2022-09-28 02:27:00 152.4 cm [facility] Body weight 2022-09-28 02:27:00 68.13 kg [facility] BMI 2022-09-28 02:27:00 29.33 kg/m2 [facility] Oxygen saturation in Arterial blood by Pulse oximetry 2022-09-28 02:27:00 100 /min [facility] Systolic blood pressure 2022-09-25 03:45:00 124 mm[Hg] [facility] Diastolic blood pressure 2022-09-25 03:45:00 79 mm[Hg] [facility] Heart rate 2022-09-25 03:45:00 81 /min [facility] Body temperature 2022-09-25 03:45:[address] [facility] Respiratory rate 2022-09-25 03:45:00 15 /min [facility] Body height 2022-09-25 03:45:00 152.4 cm [facility] Body weight 2022-09-25 03:45:00 68.04 kg [facility] BMI 2022-09-25 03:45:00 29.29 kg/m2 [facility] Oxygen saturation in Arterial blood by Pulse oximetry 2022-09-25 03:45:00 100 /min [facility] Systolic blood pressure 2021-12-29 20:04:00 134 mm[Hg] [facility] Diastolic blood pressure 2021-12-29 20:04:00 86 mm[Hg] [facility] Heart rate 2021-12-29 20:04:00 76 /min [facility] Body temperature 2021-12-29 20:04:[address] [facility] Respiratory rate 2021-12-29 20:04:00 18 /min [facility] Body height 2021-12-29 20:04:00 152.4 cm [facility] Body weight 2021-12-29 20:04:00 68.856 kg [facility] BMI 2021-12-29 20:04:00 29.65 kg/m2 [facility] Body mass index (BMI) [Percentile] Per age and sex 2021-12-29 20:04:00 93.49 % [facility] Procedures Procedure Date / Time Performed Performing Clinician Source URINALYSIS 2024-05-29 21:20:00 [facility] TEST 2024-05-29 21:20:[address] [facility] POCT TEST 2023-10-27 04:27:[address] [facility] TEST, SERUM 2023-10-27 04:26:[address] [facility] COMP. METABOLIC PANEL ([id number]) 2023-10-27 04:26:[address] [facility] CBC WITH DIFF 2023-10-27 04:26:00 Gerard Nobles [facility] URINALYSIS 2023-10-27 04:26:00 [facility] CONSENT/REFUSAL FOR DIAGNOSIS AND TREATMENT 2023-10-27 03:50:18 Doctor Unassigned, [place] [facility] ASSIGNMENT OF BENEFITS 2023-09-28 16:03:04 Docto r Unassigned, [place] [facility] NOTICE OF PRIVACY PRACTICES 2023-09-21 04:06:10 Doctor Unassigned, [place] [facility] CONSENT/REFUSAL FOR DIAGNOSIS AND TREATMENT 2023-09-21 04:05:29 Doctor Unassigned, [place] [facility] RAPID STREP SCREEN FOR GROUP A 2023-07-17 03:07:[address] [facility] POCT TEST 2023-07-17 01:53:[address] [facility] COMP. METABOLIC PANEL ([id number]) 2023-07-17 01:51:[address] [facility] CBC WITH DIFF 2023-07-17 01:51:00 Sandi Cardozo [facility] URINALYSIS 2023-07-17 01:51:00 Sandi Cardozo [facility] EBV-MONONUCLEOSIS SCREEN 2023-07-17 01:51:[address] [facility] CONSENT/REFUSAL FOR DIAGNOSIS AND TREATMENT 2023-07-17 00:37:35 Doctor Unassigned, [place] [facility] POCT TEST 2023-05-17 20:06:[address] [facility] POCT URINALYSIS 2023-05-17 20:00:00 Farooq Davis [facility] RAPID STREP SCREEN FOR GROUP A 2023-01-05 13:18:[address] [facility] RAPID INFLUENZA A/B 2023-01-05 13:09:[address] [facility] COVID-19 (ID NOW RAPID TESTING) 2023-01-05 13:09:[address] [facility] THYROID STIMULATING HORMONE 2022-12-27 17:10:[address] [facility] CBC WITH DIFF 2022-12-27 17:10:[address] [facility] GLYCOSYLATED HEMOGLOBIN (A1C) 2022-12-27 17:10:[address] [facility] RUBELLA SCREEN IGG 2022-12-27 17:10:[address] [facility] HCV ANTIBODY 2022-12-27 17:10:00 [facility] & CHLAMYDIA AMPLIFIED ASSAY 2022-12-27 17:10:[address] [facility] HIV 1/2 AG-AB WITH REFLEX 2022-12-27 17:10:[address] [facility] SYPHILIS IGG/IGM 2022-12-27 17:10:[address] [facility] GARDASIL 9 (HPV 9V) VACCINE 2022-12-27 16:53:[address] [facility] POCT TEST 2022-12-27 16:47:[address] [facility] ASSIGNMENT OF BENEFITS 2022-12-27 15:53:31 Docto r Unassigned, [place] [facility] CONSENT/REFUSAL FOR DIAGNOSIS AND TREATMENT 2022-09-28 02:20:10 Doctor Unassigned, [place] [facility] POCT TEST 2022-09-25 04:35:[address] [facility] NOTICE OF PRIVACY PRACTICES 2022-09-25 03:45:44 Doctor Unassigned, [place] [facility] CONSENT/REFUSAL FOR DIAGNOSIS AND TREATMENT 2022-09-25 03:44:56 Doctor Unassigned, [place] [facility] Encounters Start Date/Time End Date/Time Encounter Type Admission Type Attending Clinicians Care Facility Care Department Encounter ID Source 2021-06-26 08:58:39 Emergency [facility] [id number] [facility] 2021-06-24 18:43:46 Outpatient LES HUGGINS [facility] [id number] [facility] 2024-05-29 16:19:00 2024-05-29 17:53:00 Emergency X Kristian TERRELL K [facility] ERT [id number] [facility] 2024-05-29 16:19:00 2024-05-29 17:53:00 Emergency Kristian Terrell [facility] 1.840.114 350.1.13.10 4.2.7.2.686 [id number] [facility] 2023-11-29 15:30:00 2023-11-29 15:30:00 Outpatient ALAN BAEZA [id number] Yady López 2023-10-26 21:57:00 2023-10-26 23:58:00 Emergency X GERARD NOBLES [facility] ERT [id number] [facility] 2023-10-26 21:57:00 2023-10-26 23:58:00 [facility] 1.2840.114 350.1.13.10 4.2.7.2.686 [id number] [facility] 2023-10-16 15:53:57 2023-10-16 15:53:[address] [facility] [id number] Marquis Hart 2023-09-28 10:15:00 2023-09-28 10:15:00 Outpatient CATRACHITA PRATHER [facility] [id number] [facility] 2023-09-28 00:00:00 2023-09-28 00:00:00 Orders Only Doctor Unassigned, [place] [facility] 1.0.114 350.1.13.10 4.2.7.2.686 [id number] [facility] 2023-09-20 22:18:00 2023-09-20 23:14:00 Emergency X ROBERTO GRIFFITH [facility] ERT [id number] [facility] 2023-09-20 22:18:00 2023-09-20 23:14:00 Emergency Roberto Griffith [facility] 1.840.114 350.1.13.10 4.2.7.2.686 [id number] [facility] 2023-07-16 18:45:00 2023-07-16 22:54:00 Emergency X ROBERTO GRIFFITH [facility] ERT [id number] [facility] 2023-07-16 18:45:00 2023-07-16 22:54:00 Emergency CasSandi simpson Roberto Griffith [facility] 1..840.114 350.1.13.10 4.2.7.2.686 [id number] [facility] 2023-07-03 14:00:00 2023-07-03 14:00:00 Outpatient R VIANEY GARCIA [facility] [id number] [facility] 2023-05-17 15:00:00 2023-05-17 15:24:56 Outpatient R FAROOQ DAVIS [facility] [id number] [facility] 2023-05-17 15:00:00 2023-05-17 15:20:00 Urgent Care Farooq Davis Unknown, Attending [facility]TANYA [facility] 1..840.114 350.1.13.10 4.2.7.2.686 [id number] [facility] 2023-03-27 13:30:00 2023-03-27 13:30:00 Outpatient R JOYCE LOPEZ [facility] [id number] [facility] 2023-03-13 00:00:00 2023-03-13 00:00:00 Telephone Joyce Lopez [facility] [employer] [facility] 1..840.114 350.1.13.10 4.2.7.2.686 [id number] [facility] 2023-01-05 08:03:00 2023-01-05 09:46:00 Emergency X ROBERTO GRIFFITH [facility] ERT [id number] [facility] 2023-01-05 08:03:00 2023-01-05 09:46:00 Emergency Roberto Griffith [facility] 1.2.840.114 350.1.13.10 4.2.7.2.686 [id number] [facility] 2022-12-27 11:00:00 2022-12-27 12:13:57 Outpatient R JOYCE LOPEZ [facility] [id number] [facility] 2022-12-27 11:00:00 2022-12-27 12:13:57 Office Visit Joyce Lopez [facility] [employer]PER[employer] [facility] 1.2.840.114 350.1.13.10 4.2.7.2.686 [id number] [facility] 2022-12-27 00:00:00 2022-12-27 00:00:00 Orders Only Doctor Unassigned, [place] [facility] 1.2.840.114 350.1.13.10 4.2.7.2.686 [id number] [facility] 2022-09-27 20:33:00 2022-09-27 21:45:00 Emergency X ALEXIS CAMPOS [facility] ERT [id number] [facility] 2022-09-27 20:33:00 2022-09-27 21:45:00 Emergency Alexis Campos S [facility] 1.2.840.114 350.1.13.10 4.2.7.2.686 [id number] [facility] 2022-09-27 10:15:00 2022-09-27 10:15:00 Outpatient ANNABELLE WISE [facility] [id number] [facility] 2022-09-24 21:55:00 2022-09-24 23:00:00 Emergency X BANDAR CASTILLO [facility] ERT [id number] [facility] 2022-09-24 21:55:00 2022-09-24 23:00:00 Emergency Bandar Castillo [facility] 1.2.840.114 350.1.13.10 4.2.7.2.686 [id number] [facility] 2022-01-06 09:56:00 2022-01-06 09:56:00 Outpatient Facundo Almanzar [facility] [id number] [facility] 2021-12-30 00:00:00 2021-12-30 00:00:00 Telephone Mayra Saavedra [facility] [employer] [facility] 1.2.840.114 350.1.13.10 4.2.7.2.686 [id number] [facility] 2021-12-29 15:15:00 2021-12-29 15:46:42 Outpatient R MAYRA SAAVEDRA [facility] [id number] [facility] 2021-12-29 15:15:00 2021-12-29 15:46:42 Office Visit Mayra Saavedra [facility] [employer] OPERATOR [facility] 1.2.840.114 350.1.13.10 4.2.7.2.686 [id number] [facility] 2021-12-29 00:00:00 2021-12-29 00:00:00 Orders Only Doctor Unassigned, [place] [facility] 1..840.114 350.1.13.10 4.2.7.2.686 [id number] [facility] 2021-12-22 09:45:00 2021-12-22 09:45:00 Outpatient RENETTA JULIEN [facility] [id number] [facility] 2021-12-22 09:45:00 2021-12-22 09:45:00 Outpatient RENETTA JULIEN [facility] [id number] [facility] 2021-12-14 15:00:00 2021-12-14 15:00:00 Outpatient R VIANEY GARCIA [facility] [id number] [facility] 2021-12-08 08:53:50 2021-12-08 23:59:00 Outpatient Cecily VIGNESH COONTT [facility] [id number] [facility] 2021-12-08 08:45:00 2021-12-08 10:02:07 Outpatient VIGNESH JULIENTT [facility] [id number] [facility] 2021-12-08 08:45:00 2021-12-08 10:02:07 Outpatient Cecily COON RENETTA [facility] [id number] [facility] 2021-12-08 08:45:00 2021-12-08 09:00:00 [facility] 1.2.840.114 350.1.13.10 4.2.7.2.686 [id number] [facility] 2021-12-01 14:15:00 2021-12-01 14:15:00 Outpatient RENETTA JULIEN [facility] [id number] [facility] 2021-12-01 14:15:00 2021-12-01 14:15:00 Outpatient RENETTA JULIEN [facility] [id number] [facility] 2021-11-29 09:15:00 2021-11-29 09:30:00 Collar Padder Blindstitch Visit 2, [facility] 1.2.840.114 350.1.13.10 4.2.7.2.686 [id number] [facility] 2021-11-29 09:15:00 2021-11-29 09:15:00 Outpatient ANNABELLE WISE [facility] [id number] [facility] 2021-11-29 09:15:00 2021-11-29 09:15:00 Outpatient R ANNABELLE JO [facility] [id number] [facility] 2021-11-29 08:30:00 2021-11-29 08:30:00 Office Visit Annabelle Jo [facility] 1.2.840.114 350.1.13.10 4.2.7.2.686 [id number] [facility] 2021-11-24 00:00:00 2021-11-24 00:00:00 Orders Only Doctor Unassigned, [place] [facility] 1.2.840.114 350.1.13.10 4.2.7.2.686 [id number] [facility] 2021-11-17 15:00:00 2021-11-17 15:00:00 [id number] 2021-11-09 09:00:00 2021-11-09 09:00:00 [facility] [id number] [facility] 2021-09-21 15:30:00 2021-09-21 15:41:13 Nurse Visit Nurse, [facility] Vianey Garcia [facility] 1.2.840.114 350.1.13.10 4.2.7.2.686 [id number] [facility] 2021-09-21 15:30:00 2021-09-21 15:30:00 Outpatient R JASPREET [facility] [id number] [facility] 2021-09-13 15:30:00 2021-09-13 15:30:00 Outpatient Cecily GARCIA [facility] [id number] [facility] 2021-08-03 15:30:00 2021-08-03 15:30:00 Outpatient R [facility] [id number] [facility] 2021-05-11 15:44:35 2021-05-11 16:44:44 Nurse Visit Nurse, [facility] Samanta Petty [facility] 1.84.114 350.1.13.10 4.2.7.2.686 [id number] [facility] 2021-05-11 08:00:00 2021-05-11 08:00:00 Outpatient R [facility] [id number] [facility] 2021-05-11 00:00:00 2021-05-11 00:00:00 Orders Only Doctor Unassigned, [place] [facility] 1..114 350.1.13.10 4.2.7.2.686 [id number] [facility] 2021-05-10 08:00:00 2021-05-10 08:00:00 Outpatient R [facility] [id number] [facility] 2021-05-03 15:00:00 2021-05-03 15:00:00 Outpatient R [facility] [id number] [facility] 2021-04-30 00:00:00 2021-04-30 00:00:00 Nurse Triage Lucrecia Williamson [facility] 1..114 350.1.13.10 4.2.7.2.686 [id number] [facility] 2021-03-18 15:30:00 2021-03-18 15:30:00 Outpatient R [facility] [id number] [facility] 2021-03-16 14:30:00 2021-03-16 14:30:00 Outpatient R [facility] [id number] [facility] 2021-03-16 00:00:00 2021-03-16 00:00:00 Telephone AdVianey troy [facility] 1.840.114 350.1.13.10 4.2.7.2.686 [id number] [facility] 2021-02-25 10:15:00 2021-02-25 10:15:00 Outpatient RENETTA JULIEN [facility] [id number] [facility] 2021-02-17 15:00:00 2021-02-17 15:00:00 Outpatient RENETTA JULIEN [facility] [id number] [facility] 2021-02-11 10:00:00 2021-02-11 10:00:00 Outpatient RENETTA JULIEN [facility] [id number] [facility] 2020-12-15 14:23:49 2020-12-15 14:38:49 Collar Padder Blindstitch Visit 2, [facility] Lab Adum, Vianey Hernandez [facility] 1.2.840.114 350.1.13.10 4.2.7.2.686 [id number] [facility] 2020-12-15 13:51:57 2020-12-15 14:18:57 Nurse Visit Nurse, [facility] Ad, [facility] 1..840.114 350.1.13.10 4.2.7.2.686 [id number] [facility] 2020-12-15 14:00:00 2020-12-15 14:00:00 Outpatient Cecily JASPREET [facility] [id number] [facility] 2020-12-06 13:30:00 2020-12-06 13:30:00 Outpatient Cecily GARCIA [facility] [id number] [facility] 2020-11-20 17:26:00 2020-11-20 17:37:00 Emergency Belinda Hall [facility] 1..840.114 350.1.13.10 4.2.7.2.686 [id number] [facility] 2020-11-20 00:00:00 2020-11-20 00:00:00 Orders Only Doctor Unassigned, [place] [facility] 1.840.114 350.1.13.10 4.2.7.2.686 [id number] [facility] 2020-11-16 00:00:00 2020-11-16 00:00:00 Case Management Adum Vianey Hernandez [facility] 1..840.114 350.1.13.10 4.2.7.2.686 [id number] [facility] 2020-11-09 13:35:56 2020-11-09 15:09:56 Office Visit Adzahida, Vianey Hernandez [facility] 1..840.114 350.1.13.10 4.2.7.2.686 [id number] [facility] 2020-11-09 13:30:00 2020-11-09 13:30:00 Outpatient R JASPREET VIANEY [facility] [id number] [facility] 2020-11-08 15:45:00 2020-11-08 15:45:00 Outpatient R ANNABELLE JO [facility] [id number] [facility] 2020-11-05 15:00:00 2020-11-05 15:00:00 Outpatient R JASPREET [facility] [id number] [facility] 2020-11-04 14:30:00 2020-11-04 14:30:00 Outpatient R JASPREET [facility] [id number] [facility] 2020-11-02 00:00:00 2020-11-02 00:00:00 Telephone Adzahida Vianey Hernandez [facility] 1..840.114 350.1.13.10 4.2.7.2.686 [id number] [facility] 2020-09-23 00:00:00 2020-09-23 00:00:00 Orders Only Doctor Unassigned, [place] [facility] 1.2.840.114 350.1.13.10 4.2.7.2.686 [id number] [facility] 2020-09-15 00:00:00 2020-09-15 00:00:00 Case Management AdVianey troy [facility] 1.2.840.114 350.1.13.10 4.2.7.2.686 [id number] [facility] 2020-09-10 00:00:00 2020-09-10 00:00:00 Case Management Vianey Garcia [facility] 1.2.840.114 350.1.13.10 4.2.7.2.686 [id number] [facility] 2020-09-09 10:14:30 2020-09-09 10:29:30 Collar Padder Blindstitch Visit 2, Adc Lab Vianey Garcia [facility] 1.2840.114 350.1.13.10 4.2.7.2.686 [id number] [facility] 2020-09-09 08:31:02 2020-09-09 09:58:53 Office Visit Vianey Garcia [facility] 1.2840.114 350.1.13.10 4.2.7.2.686 [id number] 134 [id number] [facility] 2020-09-09 09:00:00 2020-09-09 09:00:00 Outpatient R [facility] [id number] [facility] 2020-09-09 00:00:00 2020-09-09 00:00:00 Orders Only Doctor Unassigned, [place] [facility] 1.2840.114 350.1.13.10 4.2.7.2.686 [id number] [id number] [facility] 2020-06-15 00:00:00 2020-06-15 00:00:00 Orders Only Doctor Unassigned, [place] [facility] 1.2840.114 350.1.13.10 4.2.7.2.686 [id number] 009 [id number] [facility] 2020-06-07 15:12:17 2020-06-07 15:27:17 Office Visit Renetta [facility]on [facility] [place] 1.84.114 350.1.13.10 4.2.7.2.686 [id number] [facility] 2020-06-07 15:00:00 2020-06-07 15:00:00 Outpatient R [facility]TA [facility] [id number] [facility] 2020-05-24 05:58:00 2020-05-24 09:24:00 Hospital Encounter Les Huggins [facility] 1..114 350.1.13.10 4.2.7.2.686 [id number] [facility] 2020-05-22 13:24:32 2020-05-22 13:44:32 Laboratory Only Lab, Adc Fam Pob I Adam [facility] Professio nal Office Building One 1.84.114 350.1.13.10 4.2.7.2.686 [id number] [facility] 2020-05-22 13:20:00 2020-05-22 13:20:00 Outpatient R [facility] [id number] [facility] 2020-05-21 11:00:00 2020-05-21 11:00:00 Outpatient PANKAJ [facility]ERS [facility] [id number] [facility] 2020-05-17 00:00:00 2020-05-17 00:00:00 Prep For Surgery Les Huggins [facility] Surgical Specialti yamilex [place] 1.2.840.114 350.1.13.10 4.2.7.2.686 [id number] [facility] 2020-05-13 11:14:45 2020-05-13 11:39:37 Office Visit Renetta Coon Craig L [facility] Surgical Special yamilex [place] 1.2.840.114 350.1.13.10 4.2.7.2.686 [id number] [facility] 2020-05-13 11:00:00 2020-05-13 11:00:00 Outpatient R LES [facility] [id number] [facility] 2020-05-13 00:00:00 2020-05-13 00:00:00 Letter (Out) Vignesh Coonjim Obrien [facility] Surgical Special yamilex [place] 1.2840.114 350.1.13.10 4.2.7.2.686 [id number] [facility] 2020-05-13 00:00:00 2020-05-13 00:00:00 Letter (Out) Renetta Coon [facility] Surgical Special yamilex [place] 1.2.840.114 350.1.13.10 4.2.7.2.686 [id number] [facility] 2020-05-05 15:15:00 2020-05-05 23:59:00 Hospital Encounter Les Huggins [facility] 1.2.840.114 350.1.13.10 4.2.7.2.686 [id number] [facility] 2020-05-05 00:00:00 2020-05-05 00:00:00 Outpatient R LES HU[facility]INS [facility] [id number] [facility] 2020-04-15 00:00:00 2020-04-15 00:00:00 Orders Only Doctor Unassigned, [place] [facility] 1.2.840.114 350.1.13.10 4.2.7.2.686 [id number] [facility] 2020-04-08 00:00:00 2020-04-08 00:00:00 Telephone Les Huggins [facility] Surgical Specialti yamilex [place] 1.2.840.114 350.1.13.10 4.2.7.2.686 [id number] [facility] 2020-04-05 14:45:57 2020-04-05 15:00:57 Office Visit Sergo Renetta Obrien [facility] Surgical Specialti yamilex [place] 1.2.840.114 350.1.13.10 4.2.7.2.686 [id number] [facility] 2020-04-05 15:00:00 2020-04-05 15:00:00 Outpatient Cecily COON [facility] [id number] [facility] 2020-04-01 14:00:00 2020-04-01 14:00:00 Outpatient Cecily COON [facility] [id number] [facility] 2020 11:37:49 2020 13:13:00 Emergency Mariaa Rae [facility] 1.2.840.114 350.1.13.10 4.2.7.2.686 [id number] [facility] 2020 11:37:49 2020 13:13:00 Emergency X AMRIAA RAE [facility] ERT [id number] [facility] Results Test Description Test Time Test Comments Results Result Co mments Source [facility], [id number] 04:54:53* Test Item Value Reference Range Interpretation Comme nts PREG SERUM (test code = 3520747739) Negative ZORAIDA (test code = ZORAIDA) Less than 10 IU/L. ?If low titer or ectopic is suspected, resubmit specimen in 48-[address] [facility] Met[facility] Panel (80293)2023-10-27 04:49:57* Test Item Value Reference Range Interpretation Comme nts NA (test code = 7812637501) 139 mmol/L 135-145 K (test code = 4476615009) 4.0 mmol/L 3.5-5.0 CL (test code = 2458059353) 108 mmol/L 98-108 CO2 TOTAL (test code = 0818097022) 25 mmol/L 23-31 AGAP (test code = 5494234150) 6 2-16 BUN (test code = 2172968556) 14 mg/dL 7-23 GLUCOSE (test code = 8832137086) 97 mg/dL 70-110 CREATININE (test code = 2160-0) 0.56 mg/dL 0.50-1.04 TOTAL BILI (test code = 0691530266) 0.7 mg/dL 0.1-1.1 CALCIUM (test code = 4549756492) 8.8 mg/dL 8.6-10.6 T PROTEIN (test code = 7059572069) 8.4 g/dL 6.3-8.2 H ALBUMIN (test code = 1122717325) 4.1 g/dL 3.5-5.0 ALK PHOS (test code = 3366113075) 65 U/L 34-122 ALTv (test code = 1742-6) 21 U/L 5-35 AST(SGOT) (test code = 2759606535) 37 U/L 13-40 eGFR (test code = 25262-9) 134.2 mL/min/1.73m2 CKD-EPI eGFR (2020). Assuming creatinine has been stable day-to-day for at least three months, the eGFR indicates Category G1 (>= 90 mL/min/1.73 m2) Lab Interpretation (test code = 63656-3) Abnormal [facility] with [id number] 04:36:34* Test Item Value Reference Range Interpretation [...] 33.6 g/dL 31.6-35.1 RDW-SD (test code = 36615-4) 43.0 fL 39.0-49.9 RDW-CV (test code = 788-0) 13.5 % 12.0-15.5 PLT (test code = 777-3) 241 166-358 MPV (test code = 43302-0) 12.1 fL 9.5-12.9 NRBC/100 WBC (test code = 2171474393) 0.0 0.0-10.0 NRBC x10^3 (test code = 7368245831) See_Comment [Automated messa ge] The system which generated this result transmitted reference range: 10*3/?L. The reference range was not used to interpret this result as normal/abnormal. GRAN MAT (NEUT) % (test code = 770-8) 67.8 % IMM GRAN % (test code = 7302431167) 0.60 % LYMPH % (test code = 736-9) 21.2 % MONO % (test code = 5905-5) 8.9 % EOS % (test code = 713-8) 1.0 % BASO % (test code = 706-2) 0.5 % GRAN MAT x10^3(ANC) (test code = 7718355644) 8.58 10*3/uL 1.88-7.09 H IMM GRAN x10^3 (test code = 2855215458) 0.07 10*3/uL 0.00-0.06 H LYMPH x10^3 (test code = 731-0) 2.67 10*3/uL 1.32-3.29 MONO x10^3 (test code = 742-7) 1.12 10*3/uL 0.33-0.92 H EOS x10^3 (test code = 711-2) 0.12 10*3/uL 0.03-0.39 BASO x10^3 (test code = 704-7) 0.06 10*3/uL 0.01-0.07 Lab Interpretation (test code = 75739-0) [facility]normal [facility] [id number] 04:27:00* Test Item Value Reference Range Interpretation Comme nts POCT PREG (test code = 1605) Negative On board controls acceptable with C Line (test code = 3574) Yes POCT PREG LOT # (test code = 3575) [id number] POCT PREG TEST DATE ( test code = 3576) 10-01-2024 Lab Interpretation (test cod e = 76430-9) Normal [facility]. METABOLIC PANEL (58239)2023-07-17 02:17:29* Test Item Value Reference Range Interpretation Comme nts NA (test code = 9053301615) 140 mmol/L 135-145 K (test code = 8853149584) 3.9 mmol/L 3.5-5.0 CL (test code = 9401046553) 103 mmol/L 98-108 CO2 TOTAL (test code = 5595814945) 29 mmol/L 23-31 AGAP (test code = 7576512624) 8 2-16 BUN (test code = 3528598633) 10 mg/dL 7-23 GLUCOSE (test code = 2982375390) 95 mg/dL 70-110 CREATININE (test code = 0334538972) 0.84 mg/dL 0.50-1.04 TOTAL BILI (test code = 3287378554) 0.3 mg/dL 0.1-1.1 CALCIUM (test code = 5968133658) 9.1 mg/dL 8.6-10.6 T PROTEIN (test code = 5960831484) 8.4 g/dL 6.3-8.2 H ALBUMIN (test code = 9066485298) 4.5 g/dL 3.5-5.0 ALK PHOS (test code = 3083966143) 80 U/L 34-122 ALTv (test code = 1742-6) 16 U/L 5-35 AST(SGOT) (test code = 2650842297) 22 U/L 13-40 eGFR (test code = 14604-6) 102.2 mL/min/1.73m2 CKD-EPI eGFR (2020). Assuming creatinine has been stable day-to-day for at least three months, the eGFR indicates Category G1 (>= 90 mL/min/1.73 m2) Lab Interpretation (test code = 92148-4) Abnormal [facility] WITH [id number] 02:15:48* Test Item Value Reference Range Interpretation [...] 33.3 g/dL 31.6-35.1 RDW-SD (test code = 49379-9) 42.6 fL 39.0-49.9 RDW-CV (test code = 788-0) 13.2 % 12.0-15.5 PLT (test code = 777-3) 277 See_Comment [Automated messa ge] The system which generated this result transmitted reference range: 166 - 358 10*3/?L. The reference range was not used to interpret this result as normal/abnormal. MPV (test code = 23672-4) 10.5 fL 9.5-12.9 NRBC/100 WBC (test code = 7997036160) 0.0 See_Comment [Automated Fididel ssage] The system which generated this result transmitted reference range: 0.0 - 10.0 /100 WBCs. The reference range was not used to interpret this result as normal/abnormal. NRBC x10^3 (test code = 9341143054) See_Comment [Automated messa ge] The system which generated this result transmitted reference range: 10*3/?L. The reference range was not used to interpret this result as normal/abnormal. GRAN MAT (NEUT) % (test code = 770-8) 60.3 % IMM GRAN % (test code = 2185761808) 0.30 % LYMPH % (test code = 736-9) 25.9 % MONO % (test code = 5905-5) 10.8 % EOS % (test code = 713-8) 2.0 % BASO % (test code = 706-2) 0.7 % GRAN MAT x10^3(ANC) (test code = 7513722839) 6.95 10*3/uL 1.88-7.09 IMM GRAN x10^3 (test code = 4512890030) 0.04 10*3/uL 0.00-0.06 LYMPH x10^3 (test code = 731-0) 2.99 10*3/uL 1.32-3.29 MONO x10^3 (test code = 742-7) 1.25 10*3/uL 0.33-0.92 H EOS x10^3 (test code = 711-2) 0.23 10*3/uL 0.03-0.39 BASO x10^3 (test code = 704-7) 0.08 10*3/uL 0.01-0.07 H Lab Interpretation (test code = 32498-6) Abnormal [facility] [id number] 01:53:00* Test Item Value Reference Range Interpretation Comme nts POCT PREG (test code = 1605) Negative On board controls acceptable with C Line (test code = 3574) Yes POCT PREG LOT # (test code = 3575) [id number] POCT PREG TEST DATE ( test code = 3576) 2024-11-29 Lab Interpretation (test cod e = 71641-9) Normal [facility] [id number] 20:06:00* Test Item Value Reference Range Interpretation Comme nts POCT PREG (test code = 1605) Negative On board controls acceptable with C Line (test code = 3574) Yes POCT PREG LOT # (test code = 3575) POCT PREG TEST DATE ( test code = 3576) [facility] SPECIFIC [id number] 20:01:00* Test Item Value Reference Range Interpretation [...] APPEAR (test code = 3267) cloudy [facility] SCREEN (ANGELIC) [id number] 19:07:18 * Test Item Value Reference Range Interpretation Comme [facility] IgG (test code = 2685229721) Positive Negative ZORAIDA (test code = ZORAIDA) Positive - Indicat es the patient was exposed to Rubella through infection or vaccination.Negative - Indicates the patient could be susceptible to Rubella infection.Equivocal - A second specimen should be sent. [facility] (ANGELIC) [id number] 19:07:18 * Test Item Value Reference Range Interpretation Comme [facility] Rubella screen IgG (test code = 5421423038) Positive Negative ZORAIDA (test code = ZORAIDA) Positive - Indicat es the patient was exposed to Rubella through infection or vaccination.Negative - Indicates the patient could be susceptible to Rubella infection.Equivocal - A second specimen should be sent. [facility] ONLY - SYPHILIS IGG/[id number] 17:26:01* Test Item Value Reference Range Interpretation Comme [facility] Syphilis IgG/IgM (test code = 53062-6) Non-reactive Non-reactive ZORAIDA (test code = ZORAIDA) Non-reactive - No serologic evidence of T. pallidum infection. Cannot exclude incubating or early syphilis. Submit a second specimen in 2-4 weeks if syphilis is clinically suspected. Equivocal - Further testing to follow. Reactive - Further testing to follow. Lab Interpretation (test code = 62158-1) Normal [facility] ONLY - SYPHILIS IGG/[id number] 17:26:01* Test Item Value Reference Range Interpretation Comme nts Syphilis IgG/IgM (test code = 58511-4) Non-reactive Non-reactive ZORAIDA (test code = ZORAIDA) Non-reactive - No serologic evidence of T. pallidum infection. Cannot exclude incubating or early syphilis. Submit a second specimen in 2-4 weeks if syphilis is clinically suspected. Equivocal - Further testing to follow. Reactive - Further testing to follow. Lab Interpretation (test code = 54094-0) Normal [facility]YLATED HEMOGLOBIN (A1C)2022-12-28 15:57:54* Test Item Value Reference Range Interpretation Comme nts HGB A1C (test code = 4548-4) 5.5 % 4.0-5.7 ZORAIDA (test code = ZORAIDA) Reference RangesNormal: <5.7%Prediabetes: 5.7 - 6.4%Diabetes: > 6.5% Lab Interpretation (test code = 47387-6) Normal [facility]EMOGLOBIN (A1C)2022-12-28 15:57:54* Test Item Value Reference Range Interpretation Comme nts HGB A1C (test code = 4548-4) 5.5 % 4.0-5.7 ZORAIDA (test code = ZORAIDA) Reference RangesNormal: <5.7%Prediabetes: 5.7 - 6.4%Diabetes: > 6.5% Lab Interpretation (test code = 46546-6) Normal [facility] 1/2 AG-AB WITH [id number] 12:20:58* Test Item Value Reference Range Interpretation Comme nts HIV Semi-quantitative (test code = 80381-9) 0.07 Negative ZORAIDA (test code = ZORAIDA) Non-reactive for HIV-1 antigen and HIV-1/HIV-2 antibodies. ?No laboratory evidence of HIV infection. ?Repeat in 2-4 weeks if acute HIV infection is suspected. [facility] WITH [id number] 12:20:58* Test Item Value Reference Range Interpretation Comme nts HIV Semi-quantitative (test code = 70888-2) 0.07 Negative ZORAIDA (test code = ZORAIDA) Non-reactive for HIV-1 antigen and HIV-1/HIV-2 antibodies. ?No laboratory evidence of HIV infection. ?Repeat in 2-4 weeks if acute HIV infection is suspected. [facility] Hospital[facility] [id number] 09:03:31* Test Item Value Reference Range Interpretation Comme nts HCV Ab (test code = 93005-3) Negative HCV Semi-Quantitative (test code = 56079-5) 0.02 [facility] [id number] 09:03:31* Test Item Value Reference Range Interpretation Comme nts HCV Ab (test code = 76069-4) Negative HCV Semi-Quantitative (test code = 08727-9) 0.02 [facility] HospitalTHYROID STIMULATING [id number] 08:28:04 * Test Item Value Reference Range Interpretation Comme nts TSH (test code = 1394939951) 0.99 See_Comment [Automated messa ge] The system which generated this result transmitted reference range: 0.45 - 4.70 mIU/L. The reference range was not used to interpret this result as normal/abnormal. Lab Interpretation (test code = 53925-1) Normal [facility] HospitalTHY[facility]ID STIMULATING [id number] 08:28:04 * Test Item Value Reference Range Interpretation Comme nts TSH (test code = 5487319696) 0.99 See_Comment [Automated messa ge] The system which generated this result transmitted reference range: 0.45 - 4.70 mIU/L. The reference range was not used to interpret this result as normal/abnormal. Lab Interpretation (test code = 41734-3) Normal [facility] WITH [id number] 07:54:04* Test Item Value Reference Range Interpretation [...] 32.7 g/dL 31.6-35.1 RDW-SD (test code = 22138-7) 42.5 fL 39.0-49.9 RDW-CV (test code = 788-0) 13.0 % 12.0-15.5 PLT (test code = 777-3) 232 See_Comment [Automated messa ge] The system which generated this result transmitted reference range: 166 - 358 10*3/?L. The reference range was not used to interpret this result as normal/abnormal. MPV (test code = 62067-4) 11.5 fL 9.5-12.9 NRBC/100 WBC (test code = 7652665132) 0.0 See_Comment [Automated Fididel ssage] The system which generated this result transmitted reference range: 0.0 - 10.0 /100 WBCs. The reference range was not used to interpret this result as normal/abnormal. NRBC x10^3 (test code = 9289086807) See_Comment [Automated messa ge] The system which generated this result transmitted reference range: 10*3/?L. The reference range was not used to interpret this result as normal/abnormal. GRAN MAT (NEUT) % (test code = 770-8) 57.6 % IMM GRAN % (test code = 3470806331) 0.20 % LYMPH % (test code = 736-9) 29.9 % MONO % (test code = 5905-5) 8.6 % EOS % (test code = 713-8) 2.7 % BASO % (test code = 706-2) 1.0 % GRAN MAT x10^3(ANC) (test code = 1083489714) 5.43 10*3/uL 1.88-7.09 IMM GRAN x10^3 (test code = 6408242488) 0.00-0.06 LYMPH x10^3 (test code = 731-0) 2.81 10*3/uL 1.32-3.29 MONO x10^3 (test code = 742-7) 0.81 10*3/uL 0.33-0.92 EOS x10^3 (test code = 711-2) 0.25 10*3/uL 0.03-0.39 BASO x10^3 (test code = 704-7) 0.09 10*3/uL 0.01-0.07 H Lab Interpretation (test code = 37651-7) Abnormal [facility] WITH [id number] 07:54:04* Test Item Value Reference Range Interpretation Comme nts WBC (test code = 6690-2) 9.41 See_Comment [Automated Openbuildsa ge] The system which generated this result transmitted reference range: 4.30 - 11.10 10*3/?L. The reference range was not used to interpret this result as normal/abnormal. RBC (test code = 789-8) 4.84 See_Comment [Automated Openbuildsa ge] The system which generated this result [...] 32.7 g/dL 31.6-35.1 RDW-SD (test code = 72456-9) 42.5 fL 39.0-49.9 RDW-CV (test code = 788-0) 13.0 % 12.0-15.5 PLT (test code = 777-3) 232 See_Comment [Automated Openbuildsa ge] The system which generated this result transmitted reference range: 166 - 358 10*3/?L. The reference range was not used to interpret this result as normal/abnormal. MPV (test code = 20758-8) 11.5 fL 9.5-12.9 NRBC/100 WBC (test code = 5219114962) 0.0 See_Comment [Automated Fididel ssage] The system which generated this result transmitted reference range: 0.0 - 10.0 /100 WBCs. The reference range was not used to interpret this result as normal/abnormal. NRBC x10^3 (test code = 5584066747) See_Comment [Automated Openbuildsa ge] The system which generated this result transmitted reference range: 10*3/?L. The reference range was not used to interpret this result as normal/abnormal. GRAN MAT (NEUT) % (test code = 770-8) 57.6 % IMM GRAN % (test code = 7448356967) 0.20 % LYMPH % (test code = 736-9) 29.9 % MONO % (test code = 5905-5) 8.6 % EOS % (test code = 713-8) 2.7 % BASO % (test code = 706-2) 1.0 % GRAN MAT x10^3(ANC) (test code = 3407751858) 5.43 10*3/uL 1.88-7.09 IMM GRAN x10^3 (test code = 3160096224) 0.00-0.06 LYMPH x10^3 (test code = 731-0) 2.81 10*3/uL 1.32-3.29 MONO x10^3 (test code = 742-7) 0.81 10*3/uL 0.33-0.92 EOS x10^3 (test code = 711-2) 0.25 10*3/uL 0.03-0.39 BASO x10^3 (test code = 704-7) 0.09 10*3/uL 0.01-0.07 H Lab Interpretation (test code = 78375-0) Abnormal [facility] [id number] 16:47:00* Test Item Value Reference Range Interpretation Comme nts POCT PREG (test code = 1605) Negative On board controls acceptable with C Line (test code = 3574) Yes POCT PREG LOT # (test code = 3575) POCT PREG TEST DATE ( test code = 3576) [facility] [id number] 16:47:00* Test Item Value Reference Range Interpretation Comme nts POCT PREG (test code = 1605) Negative On board controls acceptable with C Line (test code = 3574) Yes POCT PREG LOT # (test code = 3575) POCT PREG TEST DATE ( test code = 3576) [facility] [id number] 04:35:00* Test Item Value Reference Range Interpretation Comme nts POCT PREG (test code = 1605) negative On board controls acceptable with C Line (test code = 3574) present POCT PREG LOT # (test code = 3575) [id number] POCT PREG TEST DATE ( test code = 3576) 2023-11-25 Lab Interpretation (test cod e = 63168-6) Normal [facility]2022-05-24 12:21:00* Test Item Value Reference Range Interpretation Comme nts SURGICAL (test code = SR) R UN DATE: 01/17/22 [facility] - Lab PAGE 1 RUN TIME: 1221 Specimen Inquiry RUN USER: INTERFACE P ATIENT: KATRIN PEREZ LOC: ARIELA U #: [id number] AGE/SX: 16/F ROOM: RE01/06/22REG DR: Facundo Kwon MD : 03 BED: DIS: STATUS: [facility] TLOC: SPEC #: [id number] RECD: 01/09/22 STATUS: [facility] #: [id number] KI: 01/06/22-13[address] [facility] [address]: Facundo Kwon MD ENTERED: 01/09/22 SP TYPE: SURGICAL OTHR DR: DOES_NOT KNOW ORDERED: 65980/2, 69498, ANATOMIC SPEC COPIES TO: DOES_NOT KNOW Facundo Kwon MD [address] [place] [address] PROCEDURES: 81207 (01/09/22-715) 56485 (01/10/22-1630) TISSUES: A. DUODENUM BIOPSY B. STOMACH [...] ON NEXT PAGE R UN DATE: 01/17/22 [facility] PAGE 2 RUN TIME: 1221 Specimen Inquiry RUN USER: INTERFACE S PEC #: [id number] PATIENT: KATRIN PEREZ #[id number] (Continued) GROSS DESCRIPTION (Continued) Technical component excluding immunohistochemistry is performed at [facility], [address] [place] [address] Technical component of all immunohistochemistry is performed at [facility], [address] [place] [address], [address], [facility] [place] [address] Immunohistochemistry: This test was developed and its [...] 01/17/22 1221 END OF REPORT UR HCG [id number] 12:02:00* Test Item Value Reference Range Interpretation Comme nts UR HCG QUAL (test code = HCGQLU) NEGATIVE This HCGQL test is NOT applicable for MALE patients.Check with nurse about probable order error.If Tumor Marker Test needed, nurse should order test "HCGTU"(Test #550.88134) Notes Date/Time Note Provider Source 2024-05-29 17:41:[address] Lynda Mejia RN [facility] [employer] 2024-05-29 17:38:00 Not in lobby to discharge [facility] 2024-05-29 16:16:33 Summary: Triage CC: Patient vomited this morning and is late on her period, patient is here for a test PMHx: none PSH:none MEDS:none LMP: 04/19/24 Tetanus: UTD Awake, alert, oriented, resp reg unlabored, skin warm, color appropriate for race, moves all ext without difficulty, amb with out assistance Appears in no distress Shu Singh RN [facility] 2023-10-26 23:53:53 Pt discharged home following ERP eval. Pt given all education and information regarding s/s of worsening condition, the importance of follow up and prescription use and purpose. Pt verbalized understanding. Alert and ambulatory to pov with family. [employer] PRINTING MACHINIST Charlie Rmoero RN [facility] 2023-10-26 21:57:03 Pt given urine cup and placed in the lobby, pt advice to notify nurse with any other concerns or if symptoms worsen. [facility] 2023-10-26 21:53:04 Vaginal bleeding that started today with clots, pt states that she has used 4 pads. Pt c/o lower pelvic and lower back pain. Pt states LMP: 10/13/2023 [employer] PRINTING MACHINIST Cassandra Nassar RN [facility] 2023-09-20 23:01:05 Pt given printed and [...] with steady gait, in no apparent distress U[employer] PR[employer] MACHINIST Sulema Leger RN [facility] 2023-09-20 22:13:39 Pt arrives ambulatory to ED reporting that her lymph nodes are swollen and has been since she was here last time. After review pt was seen here 07/16/2023. She also wanted to be checked for all STD's. URE PRINTING MACHINIST Heidi Hall RN [facility] 2022-01-06 15:10:00 [facility] ([facility] Post Anesthesia Evaluation REPORT#:[id number] REPORT STATUS: Signed DATE:01/06/22 TIME: 1510 PATIENT: KATRIN PEREZ UNIT #: [id number] ROOM/BED: : 03 AGE: 16 SEX: F [...] Room air 01/06 1413 Temp 36.7 01/06 1413 Pulse 87 01/06 141 Resp 16 01/06 141 Cardiovascular: CV system stable, vital signs stable Respiratory/Airway: respiratory system stable, maintains without support Pain: adequately controlled Hydration: adequate, euvolemic Temp status: greater than 96.8F, normothermic Presence of N/V: no Anesthesia complications: no Other changes requiring f/u: none Conclusions: no apparent anes. issues, outpts eval prior DC home at 1511 RPT #:[id number] END OF REPORT [facility] 2022-01-06 13:42:00 [id number] [facility] PATIENT NAME: KATRIN PEREZ ADMIT DATE: 01/06/22 ACCOUNT NO: [id number] ROOM NO: AGE: 16 REPORT TYPE: ENDOSCOPY [...] 1:42 PM Procedure Code(s): --- Professional --- 21068, Esophagogastroduodenoscopy, flexible, transoral; with biopsy, single or multiple Diagnosis Code(s): --- Professional --- K29.80, Duodenitis without bleeding R10.13, Epigastric pain K30, Functional dyspepsia CPT copyright 2020 [employer]. All rights reserved. The codes documented in this report are preliminary and upon machine clothing man review may be revised to meet current compliance requirements. Scope In: Scope Out: Provation {[id number]}. pdf ProVation FT PDF PATIENT NAME: KATRIN PEREZ at 1359 PATIENT NAME: KATRIN PEREZ [facility]
--- NOTE | 2024-06-02 00:58 | EDPHYS ---
Physician Documentation [facility] Name: Lizzie Chase Age: 19 yrs Sex: Female : 2005 Arrival Date: 06/02/2024 Time: 00:30 Bed 11 Private MD: ED Physician Jj Anderson HPI: 06/02 01:00 This 19 yrs old Female presents to ER via Ambulatory with complaints of ec2 Patient states her belly button is "leaking with an odor" and is also now red and hurting from her messing with it.. 01:00 Patient arrives today for evaluation of leakage from her bellybutton. No fevers or ec2 chills, no abdominal pain, no stool leakage. No vomiting, no diarrhea. 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 - Infectious Disease History:: Denies. - Social history:: Smoking status: Patient denies any tobacco usage or history of. ROS: 01:00 Constitutional: as per hpi ec2 Exam: 01:00 Constitutional: GEN: NAD Head: atraumatic Eyes: EOMI Ears: External ears are ec2 normal. CV: regular rate LUNGS: no respiratory distress ABD: non-distended, soft, nontender, not guarding, not rigid SKIN: Scant erythema noted within the umbilicus MSK: no evidence of trauma Vital Signs: 00:38 BP 119 / 90; Pulse 82; Resp 17 S; Temp 98.1; Pulse Ox 100% on R/A; Weight 77.56 kg; ha1 Height 5 ft. 0 in. ; 00:38 Body Mass Index 33.40 (77.56 kg, 152.4 cm) ha1 MDM: 00:44 Patient medically screened. ec2 01:00 Data reviewed: vital signs. ED course: Patient arrives today for irritation of the ec2 umbilicus. Examination remarkable for skin findings as above. Start the patient on Augmentin and bacitracin. Patient discharged. Return precautions given.. Administered Medications: 01:00 Drug: Bacitracin Topical Ointment (500 unit/g) 1 application Topical once Route: ha1 Topical; Site: affected area; 01:19 Follow up: Response: No adverse reaction ha1 01:00 Drug: Amoxicillin-Clavulanate PO 875 mg PO once Route: PO; ha1 01:18 Follow up: Response: No adverse reaction ha1 Disposition Summary: 06/02/24 00:57 Discharge Ordered Notes: Location: Home ec2 Condition: Stable ec2 Diagnosis - Cellulitis of abdominal wall ec2 Followup: ec2 - With: Private Physician - When: - Reason: Re-evaluation by your physician Discharge Instructions: - Discharge Summary Sheet ec2 - Cellulitis, Adult ec2 Forms: - Medication Reconciliation Form ec2 - Antibiotic Education ec2 - Prescription Opioid Use ec2 - Patient Portal Instructions ec2 - Leadership Thank You Letter ec2 Prescriptions: - bacitracin 500 unit/gram Topical Packet - apply 1 application TOPICAL route daily; 14 gram tube; Refills: 0, Product ec2 Selection Permitted - Augmentin 875-125 mg Oral Tablet - take 1 tablet ORAL route every 12 hours for 10 days; 20 tablet; Refills: 0, ec2 Product Selection Permitted Signatures: Fany Quiroz RN RN ha1 Jj Anderson MD MD ec2
--- NOTE | 2024-06-02 00:58 | ER ---
Nurse's Notes [facility] Name: Lizzie Chase Age: 19 yrs Sex: Female : 2005 Arrival Date: 06/02/2024 Time: 00:30 Bed 11 Private MD: Diagnosis: Cellulitis of abdominal wall Presentation: 06/02 00:38 Chief complaint: Patient states: DISCHARGE FROM [facility]. TI HAS BEEN GOING ON FOR ha1 16 YEARS. 00:38 Coronavirus screen: Vaccine status: Patient reports being unvaccinated. Ebola Screen: ha1 No symptoms or risks identified at this time. Initial Sepsis Screen: Does the patient meet any 2 criteria? No. Patient's initial sepsis screen is negative. Does the patient have a suspected source of infection? No. Patient's initial sepsis screen is negative. Risk Assessment: Do you want to hurt yourself or someone else? Patient reports no desire to harm self or others. Onset of symptoms was June 02, 2024. 00:38 Method Of Arrival: Ambulatory ha1 00:38 Acuity: NACHO 4 ha1 Triage Assessment: 00:38 General: Appears in no apparent distress. comfortable, well nourished, Behavior is ha1 calm, cooperative, Reports PAIN IN NAVEL WITH YELLOW IN COLOR DISCHARGE. Pain: Complains of pain in umbilical area Pain currently is 9 out of 10 on a pain scale. Quality of pain is described as pulsating, Pain began years ago. Is intermittent. Neuro:. Cardiovascular: Capillary refill < 3 seconds Patient's skin is warm and dry. Respiratory: Airway is patent Respiratory effort is even, unlabored, Respiratory pattern is regular, symmetrical. GI: Reports DISCHARGE FROM [facility]. 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 - Infectious Disease History:: Denies. - Social history:: Smoking status: Patient denies any tobacco usage or history of. Screenin:38 [facility] ED Fall Risk Assessment (Adult) History of falling in the last 3 months, ha1 including since admission No falls in past 3 months (0 pts) Confusion or Disorientation No (0 pts) Intoxicated or Sedated No (0 pts) Impaired Gait No (0 pts) Mobility Assist Device Used No (0 pt) Altered Elimination No (0 pt) Score/Fall Risk Level 0 - 2 = Low Risk Oriented to surroundings, Maintained a safe environment, Educated pt \T\ family on fall prevention, incl call for assistance when getting out of bed, Hourly rounding (assess needs \T\ fall precautionary measures) done. 00:39 Abuse screen: Denies threats or abuse. Denies injuries from another. Nutritional ha1 screening: No deficits noted. Tuberculosis screening: No symptoms or risk factors identified. Assessment: 01:20 Reassessment: Patient and/or family updated on plan of care and expected duration. Pain ha1 level reassessed. Patient is alert, oriented x 3, equal unlabored respirations, skin warm/dry/pink. Vital Signs: 00:38 BP 119 / 90; Pulse 82; Resp 17 S; Temp 98.1; Pulse Ox 100% on R/A; Weight 77.56 kg; ha1 Height 5 ft. 0 in. ; 00:38 Body Mass Index 33.40 (77.56 kg, 152.4 cm) ha1 ED Course: 00:33 Patient arrived in ED. [email or web address] 00:38 Patient has correct armband on for positive identification. Placed in gown. Bed in low ha1 position. Call light in reach. Side rails up X 1. 00:42 Jj Anderson MD is Attending Physician. ec2 01:00 Triage completed. ha1 01:07 Fany Quiroz, RN is Primary Nurse. ha1 01:20 Arm band placed on right wrist. ha1 01:20 Provided Education on: FOLLOWING UP WITH PCP. ha1 01:20 No provider procedures requiring assistance completed. ha1 01:20 Patient did not have IV access during this emergency room visit. ha1 Administered Medications: 01:00 Drug: Bacitracin Topical Ointment (500 unit/g) 1 application Topical once Route: ha1 Topical; Site: affected area; 01:19 Follow up: Response: No adverse reaction ha1 01:00 Drug: Amoxicillin-Clavulanate PO 875 mg PO once Route: PO; ha1 01:18 Follow up: Response: No adverse reaction ha1 Medication: 01:34 VIS not applicable for this client. ha1 Outcome: 00:57 Discharge ordered by . ec2 01:20 Patient left the ED. ha1 01:20 Discharged to home ambulatory, ha1 01:20 Condition: stable 01:20 Discharge instructions given to patient, Instructed on discharge instructions, follow ha1 up and referral plans. medication usage, Demonstrated understanding of instructions, follow-up care, medications, Prescriptions given X 2, Signatures: Johnna Rivera [email or web address] Fany Quiroz RN RN ha1 Jj Anderson MD MD ec2 Corrections: (The following items were deleted from the chart) 01:06 00:38 GI: Reports [facility] 01:32 Abuse screen: Denies threats or abuse. Denies injuries from another. [facility] 01:32 Nutritional screening: No deficits noted. 1 01:32 Tuberculosis screening: No symptoms or risk factors identified. [facility] 01:32 [facility] ED Fall Risk Assessment (Adult) History of falling in the last 3 months, ha1 including since admission No falls in past 3 months (0 pts) Confusion or Disorientation No (0 pts) Intoxicated or Sedated No (0 pts) Impaired Gait No (0 pts) Mobility Assist Device Used No (0 pt) Altered Elimination No (0 pt) Score/Fall Risk Level 0 - 2 = Low Risk Oriented to surroundings, Maintained a safe environment, Educated pt \T\ family on fall prevention, incl call for assistance when getting out of bed, Hourly rounding (assess needs \T\ fall precautionary measures) done, ha1
[2024-06-02] MEDS ORDERED: AMOX/K CLAV 875 MG TAB ONE (01:13)
[2024-06-02 01:45] VITALS: BP 119/90; TEMP 98.1; O2SAT 100
== END 2024-06-02 01:20 | disposition home or self-care (01) ==
LOC: ER 00:30
DX: L03.311 Cellulitis of abdominal wall (principal)
CPT/HCPCS: 99283

== ENCOUNTER 2024-06-16 20:57 | Emergency (ER) | payer OTHER ==
--- OUTSIDE RECORDS SUMMARY | 2024-06-16 21:01 | XMS REPORT | Continuity of Care Document ---
Author Name Unknown Address [address] [facility] [address] [place] [address] [facility] thconnect Address [address] [facility]. [address] [place] [address] Care Team Providers Care Staff Respiratory Therapist Name Role Phone Bolivar Cisse Primary Care Physician + [phone] LES HUGGINS Attending Clinician Unavailabl Kristian Miranda Attending Clinician Unavailable Kristian TERRELL Attending Clinician Unavailable Kristian Denney Attending Clinician [phone] ALAN BAEZA Attending Clinician Unavailable GERARD NOBLES Attending Clinician Unavailable Gerard Suazo Attending Clinician [phone] CATRACHITA NGUYEN Attending Clinician Unavail able Doctor Unassigned, [place] Attending Clinician ROBERTO Echavarria Attending Clinician Unavailable Roberto Griffith MD Attending Clinician [phone] Sandi Cardozo NP Attending Clinician [phone] VIANEY GARCIA Attending Clinician Unavailable FAROOQ DAVIS Attending Clinician Unavailable Farooq Barnett Attending Clinician [phone] Unknown, Attending Attending Clinician Unavailab JOYCE Kumar Attending Clinician UnavailJoyce Fuentes CNM Attending Clinician [phone] WENDY JANE Attending Clinician UnavailWENDY Crane Attending Clinician UnavailALEXIS Shore S Attending Clinician Unavailable Campos PAC, Alexis S Attending Clinician [phone] ANNABELLE JO Attending Clinician Unavailable BANDAR CASTILLO Attending Clinician Unavailable Bandar Castillo MD Attending Clinician [phone] Facundo Kwon Attending Clinician Unavailable Mayra Pandey Attending Clinician + [phone] MAYRA SAAVEDRA Attending Clinician Unavailab RENETTA Lam S Attending Clinician Unavailable Renetta Clark S Attending Clinician [phone] , [facility] Attending Clinician Unavailable Annabelle Jo PA-C Attending Clinician [phone] Nurse, [facility] Attending Clinician Un available Vianey Garcia MD Attending Clinician [phone] Samanta Petty MD Attending Clinician [phone] Teri GARCIA, Lucrecia Martínez Attending Clinician Unavailable Belinda Hall DO Attending Clinician [phone] Les Huggins MD Attending Clinician [phone] Lab, [facility] Pob I Attending Clinician Unavailab Page Gorman Attending Clinician [phone] PAGE MEDINA Attending Clinician Unavailable PANKAJ REESE Attending Clinician UnavailMariaa Mccormack NP Attending Clinician [phone] MARIAA RAE Attending Clinician Unavailable LES HUGGINS Admitting Clinician UnavailSANDI Vaughan Admitting Clinician Unavailable KNOW, DOES_NOT Admitting Clinician Unavailable Les Huggins MD Admitting Clinician [phone] BELINDA HALL Admitting Clinician Unavailab niko Payers Payer Name Policy Type Policy Number Effective Date Expirati on Date Source [facility] [id number] 2020 00:00:00 AERICKY W/ YADY LÓPEZ OOO [id number] 2024 00:00:00 [facility] SHAYLA DURAN COPAY FOCUS 9 [id number] 2023 00:00:00 Problems Condition Name Condition Details Condition Category Status Onset Date Resolution Date Last Treatment Date Treating Clinician Comments Source Obesity (BMI 30-39.9) Obesity (BMI 30-39.9) Disease Active 12-30 00:00: 00 [facility] BMI 29.0-29.9, adult BMI 29.0-29.9, adult Disease Active 12-29 00:00: 00 [facility] Menorrhagi a with irregular cycle Menorrhagi a with irregular cycle Disease Active 11-09 00:00: 00 [facility] Encounter for other general counseling or advice on contracept ion Encounter for other general counseling or advice on contracept ion Disease Resolve d 12-29 00:00: 00 2022-12-30 00:00:00 2022-12-30 11:00:39 [facility] BMI 29.0-29.9, adult BMI 29.0-29.9, adult Disease Resolve d 505 00:00: 00 2022-12-30 00:00:00 2022-12-30 11:00:33 [facility] Vitamin D deficiency Vitamin D deficiency Disease Resolve d 16 00:00: 00 2022-12-30 00:00:00 2022-12-30 11:00:56 [facility] Depo-Prove ra contracept kamran status Depo-Prove ra contracept kamran status Disease Resolve d -16 00:00: 00 2022-12-30 00:00:00 2022-12-30 11:00:37 [facility] Acute medial meniscus tear, left, subsequent encounter Acute medial meniscus tear, left, subsequent encounter Disease Resolve d 9-22 00:00: 00 2022-12-30 00:00:00 2022-12-30 11:00:54 Overview: Formattin g of this note might be different from the original. Added automatic ally from request for surgery [id number] [facility] Allergies, Adverse Reactions, Alerts Allergy Name Allergy Type Status Severity Reaction(s) Onset Date Inactive Date Treating Clinician Comments Source No Known Allergie s DA Active U 01-06 00:00: 00 [facility] NO KNOWN ALLERGIE S Drug Class Active [facility] Social History Social Habit Start Date Stop Date Quantity Comments Source [facility] History SDOH Alcohol Comment [place] [facility] Alcoholic beverage intake 2023-10-26 00:00:00 2023-10-26 00:00:00 Lifetime non-drinker (finding) [facility] Alcohol intake 2023-10-26 00:00:00 2023-10-26 00:00:00 Lifetime non-drinker (finding) [facility] Exposure to SARS-CoV-2 (event) 2022-12-26 00:00:00 2023-01-05 08:00:00 Not sure [facility] Tobacco use and exposure 2022-12-27 00:00:00 2022-12-27 00:00:00 Smokeless tobacco non-user [facility] History of Social function 2022-12-27 00:00:00 2022-12-27 00:00:00 [facility] History SDOH Alcohol Frequency 2020-04-05 00:00:00 2020-04-05 00:00:00 1 [facility] History SDOH Alcohol Std Drinks 2020-04-05 00:00:00 2020-04-05 00:00:00 99 [facility] History SDOH Alcohol Binge 2020-04-05 00:00:00 2020-04-05 00:00:00 1 [facility] Sex assigned at 2003 00:00:00 2003 00:00:00 [facility] Smoking Status Start Date Stop Date Source Never smoked tobacco [facility] Medications Ordered Medication Name Filled Medication Name Start Date Stop Date Current Medication? Ordering Clinician Indication Dosage Frequency Signature (SIG) Comments Components Source cefdinir 300 mg capsule 2023-08 00:00: 00 06-09 04:59 :00 Yes [id number] 300mg Take 1 capsule by mouth every 12 (twelve) hours for 10 days. [facility] ketorolac (TORADOL) injection 30 mg 10-26 06:00: 00 10-26 05:23 :00 No 30mg 30 mg, Slow IV Push, ONCE, 1 dose, On Sun10/27/23 at 0000, Routine [facility] cefTRIAXone (ROCEPHIN) 1,000 mg in NaCl 0.9% (NS) 100 mL MINI-BAG 10-26 05:15: 00 10-26 05:52 :00 No 1000mg 1,000 mg, IV Piggyback, ONCE, 1 dose, On Sun10/26/23 at 2315, Administer over 30 Minutes, 100 mL
Reas on for Anti-Infec tive: Documented Infection< br>Documen christiano Infection Site: Urine
D uration of Therapy: Other (see Comments) [facility] cefdinir 300 mg capsule 10-25 00:00: 00 11-02 05:59 :00 No [id number] 300mg Take 1 capsule by mouth in the morning and 1 capsule in the evening. Do all this for 7 days. [facility] methylPREDN ISolone 4 mg tablets 09-20 00:00: 00 Yes [id number] Take by mouth SEE-INSTRU CTIONS. follow package directions [facility] amoxicillin -clavulanat e 875-125 mg per tablet 09-20 00:00: 00 Yes [id number] 1{tbl} Take 1 tablet by mouth every 12 (twelve) hours. [facility] iopamidol (ISOVUE 370-500 mL) injection 100 mL 2022-08 03:30: 00 07-17 03:30 :00 No [id number] 100mL 100 mL, Intravenou s, ONCE, 1 dose, On 07/16/23 at 2130, Routine [facility] methylPREDN ISolone 4 mg tablets 2022-08 00:00: 00 Yes [id number] Take by mouth SEE-INSTRU CTIONS. follow package directions [facility] clindamycin 300 mg capsule 2022-08 00:00: 00 07-27 05:59 :00 No [id number] 300mg Take 1 capsule by mouth 4 (four) times daily for 10 days. [facility] cefdinir 300 mg capsule 05-17 00:00: 00 05-28 04:59 :00 No [id number] 600mg Take 2 capsules by mouth in the morning for 10 days. [facility] acetaminoph en (TYLENOL) tablet 650 mg 01-05 13:15: 00 01-05 13:14 :00 No 650mg 650 mg, Oral, ONCE, 1 dose, On Sun01/05/23 at 0815, ALLI [facility] amoxicillin 500 mg capsule 01-05 00:00: 00 Yes [id number] 500mg Take 1 capsule by mouth in the morning and 1 capsule at noon and 1 capsule in the evening. [facility] ondansetron 4 mg disintegrat ing tablet 01-05 00:00: 00 Yes [id number] 4mg Take 1 tablet by mouth every 4 (four) hours as needed for Nausea and Vomiting (N/V). [facility] naproxen 500 mg tablet 01-05 00:00: 01-16 04:59 :00 No [id number] 500mg Take 1 tablet by mouth in the morning and 1 tablet in the evening. Take with meals. Do all this for 10 days. [facility] norethindro michelle-teestrad ioL-iron (MICROGESTI N FE) 1.5 mg-30 mcg (21)/75 mg (7) per tablet 12-27 00:00: 00 Yes [id number] 1{tbl} Take 1 tablet by mouth in the morning. [facility] naproxen (NAPROSYN) 500 mg tablet 09-27 00:00: 00 12-27 00:00 :00 No [id number] 500mg Take 1 tablet by mouth in the morning and 1 tablet in the evening. Take with meals. [facility] ibuprofen (IBU) tablet 800 mg 09-25 04:30: 00 09-25 04:33 :00 No 800mg 800 mg, Oral, ONCE, 1 dose, On 09/24/22 at 2230, ALLI [facility] No known medications 12-29 16:08: 37 No [facility] pantoprazol e 40 mg EC tablet 4-11 00:00: 00 12-29 00:00 :00 No 40mg Take 40 mg by mouth daily. [facility] metroNIDAZO LE 500 mg tablet 11-16 00:00: 00 12-29 00:00 :00 No [id number] 500mg Take 1 tablet by mouth every 12 (twelve) hours. [facility] ergocalcife rol, vitamin d2, 1,250 mcg (50,000 unit) capsule 1-15 00:00: 00 12-29 00:00 :00 No [id number] 79510F Take 1 capsule by mouth weekly. [facility] ranitidine (ZANTAC) 150 mg tablet 10-07 00:00: 00 12-29 00:00 :00 No 150mg Take 1 tablet by mouth 2 (two) times daily. Follow up with your MD for further evaluation and treatment. [facility] Immunizations Ordered Immunization Name Filled Immunization Name Date Status Comments Source [facility] 2022-12-27 00:00:00 Completed [facility] 2022-12-27 00:00:00 Completed [facility] HPV9 2022-12-27 00:00:00 Completed [facility] 2022-12-27 00:00:00 Completed [facility] Meningococcal Polysaccharide (groups A, C, Y and W-135) conjugate vaccine (MCV4P) 2020-03-30 00:00:00 Completed Meningococcal Polysaccharide (groups A, C, Y and W-135) conjugate vaccine (MCV4P) 2020-03-30 00:00:00 Completed [facility] Meningococcal Polysaccharide (groups A, C, Y and W-135) conjugate vaccine (MCV4P) 2020-03-30 00:00:00 Completed [facility] Meningococcal Polysaccharide (groups A, C, Y and W-135) conjugate vaccine (MCV4P) 2020-03-30 00:00:00 Completed [facility] HPV9 2016-04-17 00:00:00 Completed Meningococcal Polysaccharide (groups A, C, Y and W-135) conjugate vaccine (MCV4P) 2016-04-17 00:00:00 Completed TDAP 2016-04-17 00:00:00 Completed HPV9 2016-04-17 00:00:00 Completed [facility] Meningococcal Polysaccharide (groups A, C, Y and W-135) conjugate vaccine (MCV4P) 2016-04-17 00:00:00 Completed [facility] TDAP 2016-04-17 00:00:00 Completed [facility] HPV9 2016-04-17 00:00:00 Completed [facility] Meningococcal Polysaccharide (groups A, C, Y and W-135) conjugate vaccine (MCV4P) 2016-04-17 00:00:00 Completed [facility] TDAP 2016-04-17 00:00:00 Completed [facility] HPV9 2016-04-17 00:00:00 Completed [facility] Meningococcal Polysaccharide (groups A, C, Y and W-135) conjugate vaccine (MCV4P) 2016-04-17 00:00:00 Completed [facility] TDAP 2016-04-17 00:00:00 Completed [facility] HEPATITIS A 2009-06-30 00:00:00 Completed Varicella (varivax)(chicken pox) 2009-06-30 00:00:00 Completed HEPATITIS A 2009-06-30 00:00:00 Completed [facility] Varicella (varivax)(chicken pox) 2009-06-30 00:00:00 Completed [facility] HEPATITIS A 2009-06-30 00:00:00 Completed [facility] Varicella (varivax)(chicken pox) 2009-06-30 00:00:00 Completed [facility] HEPATITIS A 2009-06-30 00:00:00 Completed [facility] Varicella (varivax)(chicken pox) 2009-06-30 00:00:00 Completed [facility] DTaP, Unspecified Formulation 2007-06-10 00:00:00 Completed HEPATITIS A 2007-06-10 00:00:00 Completed Hib-HbOC 2007-06-10 00:00:00 Completed MMR 2007-06-10 00:00:00 Completed Pneumococcal 7 Conjugate, PCV7 (Prevnar7) 2007-06-10 00:00:00 Completed IPV 2007-06-10 00:00:00 Completed DTaP, Unspecified Formulation 2007-06-10 00:00:00 Completed [facility] HEPATITIS A 2007-06-10 00:00:00 Completed [facility] Hib-HbOC 2007-06-10 00:00:00 Completed [facility] MMR 2007-06-10 00:00:00 Completed [facility] Pneumococcal 7 Conjugate, PCV7 (Prevnar7) 2007-06-10 00:00:00 Completed [facility] IPV 2007-06-10 00:00:00 Completed [facility] DTaP, Unspecified Formulation 2007-06-10 00:00:00 Completed [facility] HEPATITIS A 2007-06-10 00:00:00 Completed [facility] Hib-HbOC 2007-06-10 00:00:00 Completed [facility] MMR 2007-06-10 00:00:00 Completed [facility] Pneumococcal 7 Conjugate, PCV7 (Prevnar7) 2007-06-10 00:00:00 Completed [facility] IPV 2007-06-10 00:00:00 Completed [facility] DTaP, Unspecified Formulation 2007-06-10 00:00:00 Completed [facility] HEPATITIS A 2007-06-10 00:00:00 Completed [facility] Hib-HbOC 2007-06-10 00:00:00 Completed [facility] MMR 2007-06-10 00:00:00 Completed [facility] Pneumococcal 7 Conjugate, PCV7 (Prevnar7) 2007-06-10 00:00:00 Completed [facility] IPV 2007-06-10 00:00:00 Completed [facility] DTaP, Unspecified Formulation 2004-03-30 00:00:00 Completed [facility] HIB 4 Dose Schedule 2004-03-30 00:00:00 Completed MMR 2004-03-30 00:00:00 Completed IPV 2004-03-30 00:00:00 Completed Varicella (varivax)(chicken pox) 2004-03-30 00:00:00 Completed DTaP, Unspecified Formulation 2004-03-30 00:00:00 Completed [facility] HIB 4 Dose Schedule 2004-03-30 00:00:00 Completed [facility] MMR 2004-03-30 00:00:00 Completed [facility] IPV 2004-03-30 00:00:00 Completed [facility] Varicella (varivax)(chicken pox) 2004-03-30 00:00:00 Completed [facility] DTaP, Unspecified Formulation 2004-03-30 00:00:00 Completed [facility] HIB 4 Dose Schedule 2004-03-30 00:00:00 Completed [facility] MMR 2004-03-30 00:00:00 Completed [facility] IPV 2004-03-30 00:00:00 Completed [facility] Varicella (varivax)(chicken pox) 2004-03-30 00:00:00 Completed [facility] DTaP, Unspecified Formulation 2004-03-30 00:00:00 Completed [facility] HIB 4 Dose Schedule 2004-03-30 00:00:00 Completed [facility] MMR 2004-03-30 00:00:00 Completed [facility] IPV 2004-03-30 00:00:00 Completed [facility] Varicella (varivax)(chicken pox) 2004-03-30 00:00:00 Completed [facility] DTaP, Unspecified Formulation 2003 00:00:00 Completed Hep B, Adol or Pedi Dosage 2003 00:00:00 Completed HIB 4 Dose Schedule 2003 00:00:00 Completed Pneumococcal 7 Conjugate, PCV7 (Prevnar7) 2003 00:00:00 Completed IPV 2003 00:00:00 Completed DTaP, Unspecified Formulation 2003 00:00:00 Completed [facility] Hep B, Adol or Pedi Dosage 2003 00:00:00 Completed [facility] HIB 4 Dose Schedule 2003 00:00:00 Completed [facility] Pneumococcal 7 Conjugate, PCV7 (Prevnar7) 2003 00:00:00 Completed [facility] IPV 2003 00:00:00 Completed [facility] DTaP, Unspecified Formulation 2003 00:00:00 Completed [facility] Hep B, Adol or Pedi Dosage 2003 00:00:00 Completed [facility] HIB 4 Dose Schedule 2003 00:00:00 Completed [facility] Pneumococcal 7 Conjugate, PCV7 (Prevnar7) 2003 00:00:00 Completed [facility] IPV 2003 00:00:00 Completed [facility] DTaP, Unspecified Formulation 2003 00:00:00 Completed [facility] Hep B, Adol or Pedi Dosage 2003 00:00:00 Completed [facility] HIB 4 Dose Schedule 2003 00:00:00 Completed [facility] Pneumococcal 7 Conjugate, PCV7 (Prevnar7) 2003 00:00:00 Completed [facility] IPV 2003 00:00:00 Completed [facility] DTaP, Unspecified Formulation 2003 00:00:00 Completed Hep B, Adol or Pedi Dosage 2003 00:00:00 Completed HIB 4 Dose Schedule 2003 00:00:00 Completed Pneumococcal 7 Conjugate, PCV7 (Prevnar7) 2003 00:00:00 Completed IPV 2003 00:00:00 Completed DTaP, Unspecified Formulation 2003 00:00:00 Completed [facility] Hep B, Adol or Pedi Dosage 2003 00:00:00 Completed [facility] HIB 4 Dose Schedule 2003 00:00:00 Completed [facility] Pneumococcal 7 Conjugate, PCV7 (Prevnar7) 2003 00:00:00 Completed [facility] IPV 2003 00:00:00 Completed [facility] DTaP, Unspecified Formulation 2003 00:00:00 Completed [facility] Hep B, Adol or Pedi Dosage 2003 00:00:00 Completed [facility] HIB 4 Dose Schedule 2003 00:00:00 Completed [facility] Pneumococcal 7 Conjugate, PCV7 (Prevnar7) 2003 00:00:00 Completed [facility] IPV 2003 00:00:00 Completed [facility] DTaP, Unspecified Formulation 2003 00:00:00 Completed [facility] Hep B, Adol or Pedi Dosage 2003 00:00:00 Completed [facility] HIB 4 Dose Schedule 2003 00:00:00 Completed [facility] Pneumococcal 7 Conjugate, PCV7 (Prevnar7) 2003 00:00:00 Completed [facility] IPV 2003 00:00:00 Completed [facility] Hep B, Adol or Pedi Dosage 2003 00:00:00 Completed Hep B, Adol or Pedi Dosage 2003 00:00:00 Completed [facility] Hep B, Adol or Pedi Dosage 2003 00:00:00 Completed [facility] Hep B, Adol or Pedi Dosage 2003 00:00:00 Completed [facility] DTaP, Unspecified Formulation Unknown Completed [facility] HEPATITIS A Unknown Completed [facility] Hep B, Adol or Pedi Dosage Unknown Completed [facility] Hib-HbOC Unknown Completed [facility] HIB 4 Dose Schedule Unknown Completed [facility] HPV9 Unknown Completed [facility] Meningococcal Polysaccharide (groups A, C, Y and W-135) conjugate vaccine (MCV4P) Unknown Completed [facility] MMR Unknown Completed [facility] Pneumococcal 7 Conjugate, PCV7 (Prevnar7) Unknown Completed [facility] IPV Unknown Completed [facility] Varicella (varivax)(chicken pox) Unknown Completed [facility] TDAP Unknown Completed [facility] DTaP, Unspecified Formulation Unknown Completed [facility] HEPATITIS A Unknown Completed [facility] Hep B, Adol or Pedi Dosage Unknown Completed [facility] Hib-HbOC Unknown Completed [facility] HIB 4 Dose Schedule Unknown Completed [facility] HPV9 Unknown Completed [facility] Meningococcal Polysaccharide (groups A, C, Y and W-135) conjugate vaccine (MCV4P) Unknown Completed [facility] MMR Unknown Completed [facility] Pneumococcal 7 Conjugate, PCV7 (Prevnar7) Unknown Completed [facility] IPV Unknown Completed [facility] Varicella (varivax)(chicken pox) Unknown Completed [facility] TDAP Unknown Completed [facility] DTaP, Unspecified Formulation Unknown Completed [facility] HEPATITIS A Unknown Completed [facility] Hep B, Adol or Pedi Dosage Unknown Completed [facility] Hib-HbOC Unknown Completed [facility] HIB 4 Dose Schedule Unknown Completed [facility] HPV9 Unknown Completed [facility] Meningococcal Polysaccharide (groups A, C, Y and W-135) conjugate vaccine (MCV4P) Unknown Completed [facility] MMR Unknown Completed [facility] Pneumococcal 7 Conjugate, PCV7 (Prevnar7) Unknown Completed [facility] IPV Unknown Completed [facility] Varicella (varivax)(chicken pox) Unknown Completed [facility] TDAP Unknown Completed [facility] DTaP, Unspecified Formulation Unknown Completed [facility] HEPATITIS A Unknown Completed [facility] Hep B, Adol or Pedi Dosage Unknown Completed [facility] Hib-HbOC Unknown Completed [facility] HIB 4 Dose Schedule Unknown Completed [facility] HPV9 Unknown Completed [facility] Meningococcal Polysaccharide (groups A, C, Y and W-135) conjugate vaccine (MCV4P) Unknown Completed [facility] MMR Unknown Completed [facility] Pneumococcal 7 Conjugate, PCV7 (Prevnar7) Unknown Completed [facility] IPV Unknown Completed [facility] Varicella (varivax)(chicken pox) Unknown Completed [facility] TDAP Unknown Completed [facility] DTaP, Unspecified Formulation Unknown Completed [facility] HEPATITIS A Unknown Completed [facility] Hep B, Adol or Pedi Dosage Unknown Completed [facility] Hib-HbOC Unknown Completed [facility] HIB 4 Dose Schedule Unknown Completed [facility] HPV9 Unknown Completed [facility] Meningococcal Polysaccharide (groups A, C, Y and W-135) conjugate vaccine (MCV4P) Unknown Completed [facility] MMR Unknown Completed [facility] Pneumococcal 7 Conjugate, PCV7 (Prevnar7) Unknown Completed [facility] IPV Unknown Completed [facility] Varicella (varivax)(chicken pox) Unknown Completed [facility] TDAP Unknown Completed [facility] Vital Signs Vital Name Observation Time Observation Value Comments S ource Systolic blood pressure 2024-05-29 21:17:00 135 mm[Hg] [facility] Diastolic blood pressure 2024-05-29 21:17:00 91 mm[Hg] [facility] Heart rate 2024-05-29 21:17:00 102 /min [facility] Body temperature 2024-05-29 21:17:00 36.89 [place] [facility] Respiratory rate 2024-05-29 21:17:00 16 /min [facility] Body height 2024-05-29 21:17:00 152.4 cm [facility] Body weight 2024-05-29 21:17:00 79.833 kg [facility] [facility] BMI 2024-05-29 21:17:00 34.37 kg/m2 [facility] Oxygen saturation in Arterial blood by Pulse oximetry 2024-05-29 21:17:00 100 /min [facility] Systolic blood pressure 2023-10-27 03:54:00 135 mm[Hg] [facility] Diastolic blood pressure 2023-10-27 03:54:00 103 mm[Hg] [facility] Heart rate 2023-10-27 03:54:00 95 /min [facility] Body temperature 2023-10-27 03:54:00 36.72 [place] [facility] Respiratory rate 2023-10-27 03:54:00 18 /min [facility] Body height 2023-10-27 03:54:00 152.4 cm [facility] Body weight 2023-10-27 03:54:00 70.761 kg [facility] BMI 2023-10-27 03:54:00 30.47 kg/m2 [facility] Oxygen saturation in Arterial blood by Pulse oximetry 2023-10-27 03:54:00 100 /min [facility] Systolic blood pressure 2023-09-21 04:15:00 120 mm[Hg] [facility] Diastolic blood pressure 2023-09-21 04:15:00 68 mm[Hg] [facility] Heart rate 2023-09-21 04:15:00 93 /min [facility] Body temperature 2023-09-21 04:15:00 36.89 [place] [facility] Respiratory rate 2023-09-21 04:15:00 16 /min [facility] Body height 2023-09-21 04:15:00 152.4 cm [facility] Body weight 2023-09-21 04:15:00 70.761 kg [facility] BMI 2023-09-21 04:15:00 30.47 kg/m2 [facility] Oxygen saturation in Arterial blood by Pulse oximetry 2023-09-21 04:15:00 100 /min [facility] Systolic blood pressure 2023-07-17 03:00:00 122 mm[Hg] [facility] Diastolic blood pressure 2023-07-17 03:00:00 86 mm[Hg] [facility] Heart rate 2023-07-17 03:00:00 73 /min [facility] Respiratory rate 2023-07-17 03:00:00 16 /min [facility] Oxygen saturation in Arterial blood by Pulse oximetry 2023-07-17 03:00:00 100 /min [facility] Body weight 2023-07-17 00:43:00 69.854 kg [facility] BMI 2023-07-17 00:43:00 30.08 kg/m2 [facility] Body temperature 2023-07-17 00:43:00 36.78 [place] [facility] Body height 2023-07-17 00:43:00 152.4 cm [facility] Systolic blood pressure 2023-05-17 19:58:00 112 mm[Hg] [facility] Diastolic blood pressure 2023-05-17 19:58:00 76 mm[Hg] [facility] Heart rate 2023-05-17 19:58:00 71 /min [facility] Body temperature 2023-05-17 19:58:00 36.61 [place] [facility] Respiratory rate 2023-05-17 19:58:00 16 /min [facility] Body height 2023-05-17 19:58:00 152.4 cm [facility] Body weight 2023-05-17 19:58:00 66.225 kg [facility] BMI 2023-05-17 19:58:00 28.51 kg/m2 [facility] Oxygen saturation in Arterial blood by Pulse oximetry 2023-05-17 19:58:00 98 /min [facility] Body temperature 2023-01-05 14:10:13 37.72 [place] [facility] Systolic blood pressure 2023-01-05 14:00:00 119 mm[Hg] [facility] Diastolic blood pressure 2023-01-05 14:00:00 79 mm[Hg] [facility] Heart rate 2023-01-05 14:00:00 89 /min [facility] Respiratory rate 2023-01-05 14:00:00 15 /min [facility] Oxygen saturation in Arterial blood by Pulse oximetry 2023-01-05 14:00:00 96 /min [facility] Body height 2023-01-05 13:02:00 152.4 cm [facility] Body weight 2023-01-05 13:02:00 72.576 kg [facility] BMI 2023-01-05 13:02:00 31.25 kg/m2 [facility] Systolic blood pressure 2022-12-27 16:46:00 105 mm[Hg] [facility] Diastolic blood pressure 2022-12-27 16:46:00 70 mm[Hg] [facility] Heart rate 2022-12-27 16:46:00 71 /min [facility] Body temperature 2022-12-27 16:46:00 36.78 [place] [facility] Respiratory rate 2022-12-27 16:46:00 18 /min [facility] Body height 2022-12-27 16:46:00 152.4 cm [facility] Body weight 2022-12-27 16:46:00 73.539 kg [facility] BMI 2022-12-27 16:46:00 31.66 kg/m2 [facility] Systolic blood pressure 2022-09-28 02:27:00 133 mm[Hg] [facility] Diastolic blood pressure 2022-09-28 02:27:00 91 mm[Hg] [facility] Heart rate 2022-09-28 02:27:00 94 /min [facility] Body temperature 2022-09-28 02:27:00 37.39 [place] [facility] Respiratory rate 2022-09-28 02:27:00 16 /min [facility] Body height 2022-09-28 02:27:00 152.4 cm [facility] Body weight 2022-09-28 02:27:00 68.13 kg [facility] BMI 2022-09-28 02:27:00 29.33 kg/m2 [facility] Oxygen saturation in Arterial blood by Pulse oximetry 2022-09-28 02:27:00 100 /min [facility] Systolic blood pressure 2022-09-25 03:45:00 124 mm[Hg] [facility] Diastolic blood pressure 2022-09-25 03:45:00 79 mm[Hg] [facility] Heart rate 2022-09-25 03:45:00 81 /min [facility] Body temperature 2022-09-25 03:45:00 36.89 [place] [facility] Respiratory rate 2022-09-25 03:45:00 15 /min [facility] Body height 2022-09-25 03:45:00 152.4 cm [facility] Body weight 2022-09-25 03:45:00 68.04 kg [facility] BMI 2022-09-25 03:45:00 29.29 kg/m2 [facility] Oxygen saturation in Arterial blood by Pulse oximetry 2022-09-25 03:45:00 100 /min [facility] Systolic blood pressure 2021-12-29 20:04:00 134 mm[Hg] [facility] Diastolic blood pressure 2021-12-29 20:04:00 86 mm[Hg] [facility] Heart rate 2021-12-29 20:04:00 76 /min [facility] Body temperature 2021-12-29 20:04:00 36.94 [place] [facility] Respiratory rate 2021-12-29 20:04:00 18 /min [facility] Body height 2021-12-29 20:04:00 152.4 cm [facility] Body weight 2021-12-29 20:04:00 68.856 kg [facility] BMI 2021-12-29 20:04:00 29.65 kg/m2 [facility] Body mass index (BMI) [Percentile] Per age and sex 2021-12-29 20:04:00 93.49 % [facility] Procedures Procedure Date / Time Performed Performing Clinician Source URINALYSIS 2024-05-29 21:20:00 Kristian Terrell [facility] POCT TEST 2024-05-29 21:20:00 Kristian Terrell [facility] POCT TEST 2023-10-27 04:27:00 Darion Nobles [facility] TEST, SERUM 2023-10-27 04:26:00 Lory Nobles [facility] COMP. METABOLIC PANEL (29412) 2023-10-27 04:26:00 Gerard Nobles [facility] CBC WITH DIFF 2023-10-27 04:26:00 Gerard Nobles [facility] URINALYSIS 2023-10-27 04:26:00 Gerard Nobles [facility] CONSENT/REFUSAL FOR DIAGNOSIS AND TREATMENT 2023-10-27 03:50:18 Doctor Unassigned, [place] [facility] ASSIGNMENT OF BENEFITS 2023-09-28 16:03:04 Docto r Unassigned, [place] [facility] NOTICE OF PRIVACY PRACTICES 2023-09-21 04:06:10 Doctor Unassigned, [place] [facility] CONSENT/REFUSAL FOR DIAGNOSIS AND TREATMENT 2023-09-21 04:05:29 Doctor Unassigned, [place] [facility] RAPID STREP SCREEN FOR GROUP A 2023-07-17 03:07:00 Roberto Griffith [facility] POCT TEST 2023-07-17 01:53:00 Marcelina Cardozo [facility] COMP. METABOLIC PANEL (79324) 2023-07-17 01:51:00 Sandi Cardozo [facility] CBC WITH DIFF 2023-07-17 01:51:00 Sandi Cardozo [facility] URINALYSIS 2023-07-17 01:51:00 Sandi Cardozo [facility] EBV-MONONUCLEOSIS SCREEN 2023-07-17 01:51:00 Roberto Griffith [facility] CONSENT/REFUSAL FOR DIAGNOSIS AND TREATMENT 2023-07-17 00:37:35 Doctor Unassigned, [place] [facility] POCT TEST 2023-05-17 20:06:00 Farooq Davis [facility] POCT URINALYSIS 2023-05-17 20:00:00 Farooq Davis [facility] RAPID STREP SCREEN FOR GROUP A 2023-01-05 13:18:00 Roberto Griffith [facility] RAPID INFLUENZA A/B 2023-01-05 13:09:00 Aminah Griffith [facility] COVID-19 (ID NOW RAPID TESTING) 2023-01-05 13:09:00 Roberto Griffith [facility] THYROID STIMULATING HORMONE 2022-12-27 17:10:00 Joyce Lopez [facility] CBC WITH DIFF 2022-12-27 17:10:00 Joyce Lopez [facility] GLYCOSYLATED HEMOGLOBIN (A1C) 2022-12-27 17:10:00 Joyce Lopez [facility] RUBELLA SCREEN IGG 2022-12-27 17:10:00 Gretchen Lopez [facility] HCV ANTIBODY 2022-12-27 17:10:00 [facility] GC & CHLAMYDIA AMPLIFIED ASSAY 2022-12-27 17:10:00 Joyce Lopez [facility] HIV 1/2 AG-AB WITH REFLEX 2022-12-27 17:10:00 Joyce Lopez [facility] SYPHILIS IGG/IGM 2022-12-27 17:10:00 Joyce Lopez [facility] GARDASIL 9 (HPV 9V) VACCINE 2022-12-27 16:53:08 Joyce Lopez [facility] POCT TEST 2022-12-27 16:47:00 Vignesh Lopez [facility] ASSIGNMENT OF BENEFITS 2022-12-27 15:53:31 Docto r Unassigned, [place] [facility] CONSENT/REFUSAL FOR DIAGNOSIS AND TREATMENT 2022-09-28 02:20:10 Doctor Unassigned, [place] [facility] POCT TEST 2022-09-25 04:35:00 Bandar Castillo [facility] NOTICE OF PRIVACY PRACTICES 2022-09-25 03:45:44 Doctor Unassigned, [place] [facility] CONSENT/REFUSAL FOR DIAGNOSIS AND TREATMENT 2022-09-25 03:44:56 Doctor Unassigned, [place] [facility] Encounters Start Date/Time End Date/Time Encounter Type Admission Type Attending Clinicians Care Facility Care Department Encounter ID Source 2021-06-26 08:58:39 Emergency [place] [id number] [facility] 2021-06-24 18:43:46 Outpatient LES HUGGINS [place] [id number] [facility] 2024-05-29 16:19:00 2024-05-29 17:53:00 Emergency X Kristian TERRELL K [facility] E[facility] [id number] [facility] 2024-05-29 16:19:2024-05-29 17:53:00 Emergency Kristian Terrell [facility] 1.840.114 350.1.13.10 4.2.7.2.686 [id number] [facility] 2023-11-29 15:30:00 2023-11-29 15:30:00 Outpatient ALAN BAEZA [id number] Yady López 2023-10-26 21:57:00 2023-10-26 23:58:00 [facility] [id number] [facility] 2023-10-26 21:57:00 2023-10-26 23:58:00 Emergency Gerard Nobles [facility] 1.840.114 350.1.13.10 4.2.7.2.686 [id number] [facility] 2023-10-16 15:53:57 2023-10-16 15:53:57 Outpatient [facility] [id number] Marquis Hart 2023-09-28 10:15:00 2023-09-28 10:15:00 Outpatient CATRACHITA PRATHER [place] [id number] [facility] 2023-09-28 00:00:00 2023-09-28 00:00:00 Orders Only Doctor Unassigned, [place] [facility] 1.0.114 350.1.13.10 4.2.7.2.686 [id number] [facility] 2023-09-20 22:18:00 2023-09-20 23:14:00 Emergency X ROBERTO GRIFFITH [facility] ERT [id number] [facility] 2023-09-20 22:18:00 2023-09-20 23:14:00 Emergency Roberto Griffith [facility] 1.840.114 350.1.13.10 4.2.7.2.686 [id number] [facility] 2023-07-16 18:45:00 2023-07-16 22:54:00 Emergency X ROBERTO GRIFFITH [facility] ERT [id number] [facility] 2023-07-16 18:45:00 2023-07-16 22:54:00 Emergency CasSandi simpson Roberto Griffith [facility] 1..840.114 350.1.13.10 4.2.7.2.686 [id number] [facility] 2023-07-03 14:00:00 2023-07-03 14:00:00 Outpatient R VIANEY GARCIA [place] [id number] [facility] 2023-05-17 15:00:00 2023-05-17 15:24:56 Outpatient R FAROOQ DAVIS [place] [id number] [facility] 2023-05-17 15:00:00 2023-05-17 15:20:00 Urgent Care Farooq Davis Unknown, Attending [facility] 1..840.114 350.1.13.10 4.2.7.2.686 [id number] [facility] 2023-03-27 13:30:00 2023-03-27 13:30:00 Outpatient R JOYCE LOPEZ [place] [id number] [facility] 2023-03-13 00:00:00 2023-03-13 00:00:00 Telephone Joyce Lopez [facility] [employer] [facility] 1..840.114 350.1.13.10 4.2.7.2.686 [id number] [facility] 2023-01-05 08:03:00 2023-01-05 09:46:00 Emergency X ROBERTO GRIFFITH [facility] ERT [id number] [facility] 2023-01-05 08:03:00 2023-01-05 09:46:00 Emergency Roberto Griffith [facility] 1.2.840.114 350.1.13.10 4.2.7.2.686 [id number] [facility] 2022-12-27 11:00:00 2022-12-27 12:13:57 Outpatient R JOYCE LOPEZ [place] [id number] [facility] 2022-12-27 11:00:00 2022-12-27 12:13:57 Office Visit Joyce Lopez [facility] [employer] [facility] 1.2.840.114 350.1.13.10 4.2.7.2.686 [id number] [facility] 2022-12-27 00:00:00 2022-12-27 00:00:00 Orders Only Doctor Unassigned, [place] [facility] 1.2.840.114 350.1.13.10 4.2.7.2.686 [id number] [facility] 2022-09-27 20:33:00 2022-09-27 21:45:00 Emergency X ALEXIS CAMPOS [facility] ERT [id number] [facility] 2022-09-27 20:33:00 2022-09-27 21:45:00 Emergency Alexis Campos S [facility] 1.2.840.114 350.1.13.10 4.2.7.2.686 [id number] [facility] 2022-09-27 10:15:00 2022-09-27 10:15:00 Outpatient R ANNABELLE JO [place] [id number] [facility] 2022-09-24 21:55:00 2022-09-24 23:00:00 Emergency X BANDAR CASTILLO [facility] ERT [id number] [facility] 2022-09-24 21:55:00 2022-09-24 23:00:00 Emergency Bandar Castillo [facility] 1.2.840.114 350.1.13.10 4.2.7.2.686 [id number] [facility] 2022-01-06 09:56:00 2022-01-06 09:56:00 Outpatient Facundo Almanzar [facility] [id number] [facility] 2021-12-30 00:00:00 2021-12-30 00:00:00 Telephone Mayra Saavedra [facility] [employer] [facility] 1.2.840.114 350.1.13.10 4.2.7.2.686 [id number] [facility] 2021-12-29 15:15:00 2021-12-29 15:46:42 Outpatient R MAYRA SAAVEDRA [place] [id number] [facility] 2021-12-29 15:15:00 2021-12-29 15:46:42 Office Visit Mayra Saavedra [facility] [employer]PER[employer] [facility] 1.2.840.114 350.1.13.10 4.2.7.2.686 [id number] [facility] 2021-12-29 00:00:00 2021-12-29 00:00:00 Orders Only Doctor Unassigned, [place] [facility] 1.2.840.114 350.1.13.10 4.2.7.2.686 [id number] [facility] 2021-12-22 09:45:00 2021-12-22 09:45:00 Outpatient RENETTA JULIEN [place] [id number] [facility] 2021-12-22 09:45:00 2021-12-22 09:45:00 Outpatient RENETTA JULIEN [place] [id number] [facility] 2021-12-14 15:00:00 2021-12-14 15:00:00 Outpatient R VIANEY GARCIA [place] [id number] [facility] 2021-12-08 08:53:50 2021-12-08 23:59:00 Outpatient Cecily RENETTA COON [place] [id number] [facility] 2021-12-08 08:45:00 2021-12-08 10:02:07 Outpatient Cecily VIGNESH COONTT [place] [id number] [facility] 2021-12-08 08:45:00 2021-12-08 10:02:07 Outpatient Cecily COON RENETTA [place] [id number] [facility] 2021-12-08 08:45:00 2021-12-08 09:00:00 [facility] 1.2.840.114 350.1.13.10 4.2.7.2.686 [id number] [facility] 2021-12-01 14:15:00 2021-12-01 14:15:00 Outpatient RENETTA JULIEN [place] [id number] [facility] 2021-12-01 14:15:00 2021-12-01 14:15:00 Out[facility] [id number] [facility] 2021-11-29 09:15:00 2021-11-29 09:30:00 [place] Visit 2, [facility] 1.2.840.114 350.1.13.10 4.2.7.2.686 [id number] [facility] 2021-11-29 09:15:00 2021-11-29 09:15:00 Outpatient ANNABELLE WISE [place] [id number] [facility] 2021-11-29 09:15:00 2021-11-29 09:15:00 Outpatient R ANNABELLE JO [place] [id number] [facility] 2021-11-29 08:30:00 2021-11-29 08:30:00 Office Visit Annabelle Jo [facility] 1.2.840.114 350.1.13.10 4.2.7.2.686 [id number] [facility] 2021-11-24 00:00:00 2021-11-24 00:00:00 Orders Only Doctor Unassigned, [place] [facility] 1.2.840.114 350.1.13.10 4.2.7.2.686 [id number] [facility] 2021-11-17 15:00:00 2021-11-17 15:00:00 [id number] 2021-11-09 09:00:00 2021-11-09 09:00:00 Outpatient R SANDRO [facility] [id number] [facility] 2021-09-21 15:30:00 2021-09-21 15:41:13 Nurse Visit Nurse, [facility] Vianey Garcia [facility] 1.2.840.114 350.1.13.10 4.2.7.2.686 [id number] [facility] 2021-09-21 15:30:00 2021-09-21 15:30:00 Outpatient R JASPREET [facility] [id number] [facility] 2021-09-13 15:30:00 2021-09-13 15:30:00 Outpatient R JASPREET [facility] [id number] [facility] 2021-08-03 15:30:00 2021-08-03 15:30:00 Outpatient R [place] [id number] [facility] 2021-05-11 15:44:35 2021-05-11 16:44:44 Nurse Visit Nurse, [facility] Samanta Petty [facility] 1.840.114 350.1.13.10 4.2.7.2.686 [id number] [facility] 2021-05-11 08:00:00 2021-05-11 08:00:00 Outpatient R [place] [id number] [facility] 2021-05-11 00:00:00 2021-05-11 00:00:00 Orders Only Doctor Unassigned, [place] [facility] 1.840.114 350.1.13.10 4.2.7.2.686 [id number] [facility] 2021-05-10 08:00:00 2021-05-10 08:00:00 Outpatient R [place] [id number] [facility] 2021-05-03 15:00:00 2021-05-03 15:00:00 Outpatient R [place] [id number] [facility] 2021-04-30 00:00:00 2021-04-30 00:00:00 Nurse Triage Lucrecia Williamson [facility] 1.84.114 350.1.13.10 4.2.7.2.686 [id number] [facility] 2021-03-18 15:30:00 2021-03-18 15:30:00 Outpatient R [place] [id number] [facility] 2021-03-16 14:30:00 2021-03-16 14:30:00 Outpatient R [place] [id number] [facility] 2021-03-16 00:00:00 2021-03-16 00:00:00 Telephone AdVianey troy [facility] 1.840.114 350.1.13.10 4.2.7.2.686 [id number] [facility] 2021-02-25 10:15:00 2021-02-25 10:15:00 Outpatient RENETTA JULIEN [place] [id number] [facility] 2021-02-17 15:00:00 2021-02-17 15:00:00 Outpatient RENETTA JULIEN [place] [id number] [facility] 2021-02-11 10:00:00 2021-02-11 10:00:00 Outpatient Cecily COON RENETTA [place] [id number] [facility] 2020-12-15 14:23:49 2020-12-15 14:38:49 [place] Visit 2, [facility] Adum, Vianey [facility] 1..840.114 350.1.13.10 4.2.7.2.686 [id number] [facility] 2020-12-15 13:51:57 2020-12-15 14:18:57 Nurse Visit Nurse, [facility], [facility] 1..840.114 350.1.13.10 4.2.7.2.686 [id number] [facility] 2020-12-15 14:00:00 2020-12-15 14:00:00 Outpatient Cecily GARCIA [facility] [id number] [facility] 2020-12-06 13:30:00 2020-12-06 13:30:00 Outpatient Cecily GARCIA [facility] [id number] [facility] 2020-11-20 17:26:00 2020-11-20 17:37:00 Emergency Belinda Hall [facility] 1..840.114 350.1.13.10 4.2.7.2.686 [id number] [facility] 2020-11-20 00:00:2020-11-20 00:00:00 Orders Only Doctor Unassigned, [place] [facility] 1.840.114 350.1.13.10 4.2.7.2.686 [id number] [facility] 2020-11-16 00:00:00 2020-11-16 00:00:00 Case Management Adum Vianey Hernandez [facility] Building 1..840.114 350.1.13.10 4.2.7.2.686 [id number] [facility] 2020-11-09 13:35:56 2020-11-09 15:09:56 Office Visit Adzahida, Vianey Hernandez [facility] 1..840.114 350.1.13.10 4.2.7.2.686 [id number] [facility] 2020-11-09 13:30:00 2020-11-09 13:30:00 Outpatient R JASPREET VIANEY [place] [id number] [facility] 2020-11-08 15:45:00 2020-11-08 15:45:00 Outpatient R ANNABELLE JO [place] [id number] [facility] 2020-11-05 15:00:00 2020-11-05 15:00:00 Outpatient R JASPREET [facility] [id number] [facility] 2020-11-04 14:30:00 2020-11-04 14:30:00 Outpatient R JASPREET [facility] [id number] [facility] 2020-11-02 00:00:00 2020-11-02 00:00:00 Telephone Adzahida Vianey Hernandez [facility] 1..840.114 350.1.13.10 4.2.7.2.686 [id number] [facility] 2020-09-23 00:00:00 2020-09-23 00:00:00 Orders Only Doctor Unassigned, [place] [facility] 1.2.840.114 350.1.13.10 4.2.7.2.686 [id number] [facility] 2020-09-15 00:00:00 2020-09-15 00:00:00 Case Management AdVianey troy [facility] 1.2.840.114 350.1.13.10 4.2.7.2.686 [id number] [facility] [facility]:00:00 2020-09-10 00:00:00 Case Management Vianey Garcia [facility] 1.2.840.114 350.1.13.10 4.2.7.2.686 [id number] [facility] 2020-09-09 10:14:30 2020-09-09 10:29:30 Laborer [place] Visit 2, Adc Lab Vianey Garcia [facility] 1.2.840.114 350.1.13.10 4.2.7.2.686 [id number] [facility] 2020-09-09 08:31:02 2020-09-09 09:58:53 Office Visit Vianey Garcia [facility] 1.2.840.114 350.1.13.10 4.2.7.2.686 [id number] [facility] 2020-09-09 09:00:00 2020-09-09 09:00:00 Outpatient R JABIERVIANEY TROY [place] [id number] [facility] 2020-09-09 00:00:00 2020-09-09 00:00:00 Orders Only Doctor Unassigned, [place] [facility] 1.2.840.114 350.1.13.10 4.2.7.2.686 [id number] [facility] 2020-06-15 00:00:00 2020-06-15 00:00:00 Orders Only Doctor Unassigned, [place] [facility] 1.2840.114 350.1.13.10 4.2.7.2.686 [id number] [facility] 2020-06-07 15:12:17 2020-06-07 15:27:17 Office Visit [facility]etta [facility]on [facility] 1.0.114 350.1.13.10 4.2.7.2.686 [id number] [facility] 2020-06-07 15:00:00 2020-06-07 15:00:00 Outpatient R RENETTA COON [place] [id number] [facility] 2020-05-24 05:58:00 2020-05-24 09:24:00 Hospital Encounter Les Huggins [facility] 1.84.114 350.1.13.10 4.2.7.2.686 [id number] [facility] 2020-05-22 13:24:32 2020-05-22 13:44:32 Laboratory Only Lab, Adc Fam Pob Jasmina Medina [facility] Profess[facility] nal Office Building One 1.84.114 350.1.13.10 4.2.7.2.686 [id number] [facility] 2020-05-22 13:20:00 2020-05-22 13:20:00 Outpatient R PAGE MEDINA [place] [id number] [facility] 2020-05-21 11:00:00 2020-05-21 11:00:00 Outpatient PANKAJ MYERS [place] [id number] [facility] 2020-05-17 00:00:00 2020-05-17 00:00:00 Prep For Surgery Les Huggins [facility] 1.2.840.114 350.1.13.10 4.2.7.2.686 [id number] [facility] 2020-05-13 11:14:45 2020-05-13 11:39:37 Office Visit CoonRenetta eLs Huggins [facility] yamilex [place] 1.2.840.114 350.1.13.10 4.2.7.2.686 [id number] [facility] 2020-05-13 11:00:00 2020-05-13 11:00:00 Outpatient R LES HUGGINS [place] [id number] [facility] 2020-05-13 00:00:00 2020-05-13 00:00:00 Letter (Out) SergoRenetta [facility] yamilex [place] 1.2840.114 350.1.13.10 4.2.7.2.686 [id number] [facility] 2020-05-13 00:00:00 2020-05-13 00:00:00 Letter (Out) Renetta Coon [facility] yamilex [place] 1.2.840.114 350.1.13.10 4.2.7.2.686 [id number] [facility] 2020-05-05 15:15:00 2020-05-05 23:59:00 Hospital Encounter Les Huggins [facility] 1.2.840.114 350.1.13.10 4.2.7.2.686 [id number] [facility] 2020-05-05 00:00:00 2020-05-05 00:00:00 Outpatient R LES HUGGINS [place] [id number] [facility] 2020-04-15 00:00:00 2020-04-15 00:00:00 Orders Only Doctor Unassigned, [place] [facility] 1.2.840.114 350.1.13.10 4.2.7.2.686 [id number] [facility] 2020-04-08 00:00:00 2020-04-08 00:00:00 Telephone Les Huggins [facility] yamilex [place] 1.2.840.114 350.1.13.10 4.2.7.2.686 [id number] [facility] 2020-04-05 14:45:57 2020-04-05 15:00:57 Office Visit Renetta Coon [facility] yamilex [place] 1.2.840.114 350.1.13.10 4.2.7.2.686 [id number] [facility] 2020-04-05 15:00:00 2020-04-05 15:00:00 Outpatient Cecily COON [facility] [id number] [facility] 2020-04-01 14:00:00 2020-04-01 14:00:00 Outpatient Cecily COON [facility] [id number] [facility] 2020 11:37:49 2020 13:13:00 Emergency Mariaa aRe [facility] 1.2.840.114 350.1.13.10 4.2.7.2.686 [id number] [facility] 2020 11:37:49 2020 13:13:00 Emergency X MARIAA RAE [facility] ERT [id number] [facility] Results Test Description Test Time Test Comments Results Result Co mments Source [facility], [id number] 04:54:53* Test Item Value Reference Range Interpretation Comme nts PREG SERUM (test code = 4761773894) Negative ZORAIDA (test code = ZORAIDA) Less than 10 IU/L. ?If low titer or ectopic is suspected, resubmit specimen in 48-72 hours. [facility] Center[facility]. Metabolic Panel (24188)2023-10-27 04:49:57* Test Item Value Reference Range Interpretation Comme nts NA (test code = 1532890404) 139 mmol/L 135-145 K (test code = 1218806494) 4.0 mmol/L 3.5-5.0 CL (test code = 4188725527) 108 mmol/L 98-108 CO2 TOTAL (test code = 8559359484) 25 mmol/L 23-31 AGAP (test code = 3183977050) 6 2-16 BUN (test code = 7969373244) 14 mg/dL 7-23 GLUCOSE (test code = 1503384615) 97 mg/dL 70-110 CREATININE (test code = 2160-0) 0.56 mg/dL 0.50-1.04 TOTAL BILI (test code = 5835627261) 0.7 mg/dL 0.1-1.1 CALCIUM (test code = 4204184504) 8.8 mg/dL 8.6-10.6 T PROTEIN (test code = 5224130546) 8.4 g/dL 6.3-8.2 H ALBUMIN (test code = 2753034556) 4.1 g/dL 3.5-5.0 ALK PHOS (test code = 8864539046) 65 U/L 34-122 ALTv (test code = 1742-6) 21 U/L 5-35 AST(SGOT) (test code = 5095614125) 37 U/L 13-40 eGFR (test code = 43764-2) 134.2 mL/min/1.73m2 CKD-EPI eGFR (2020). Assuming creatinine has been stable day-to-day for at least three months, the eGFR indicates Category G1 (>= 90 mL/min/1.73 m2) Lab Interpretation (test code = 95620-5) Abnormal [facility] with [id number] 04:36:34* Test Item Value Reference Range Interpretation [...] 33.6 g/dL 31.6-35.1 RDW-SD (test code = 84236-0) 43.0 fL 39.0-49.9 RDW-CV (test code = 788-0) 13.5 % 12.0-15.5 PLT (test code = 777-3) 241 166-358 MPV (test code = 82729-6) 12.1 fL 9.5-12.9 NRBC/100 WBC (test code = 4620043851) 0.0 0.0-10.0 NRBC x10^3 (test code = 0211579263) See_Comment [Automated messa ge] The system which generated this result transmitted reference range: 10*3/?L. The reference range was not used to interpret this result as normal/abnormal. GRAN MAT (NEUT) % (test code = 770-8) 67.8 % IMM GRAN % (test code = 6552180183) 0.60 % LYMPH % (test code = 736-9) 21.2 % MONO % (test code = 5905-5) 8.9 % EOS % (test code = 713-8) 1.0 % BASO % (test code = 706-2) 0.5 % GRAN MAT x10^3(ANC) (test code = 6557219279) 8.58 10*3/uL 1.88-7.09 H IMM GRAN x10^3 (test code = 2650219122) 0.07 10*3/uL 0.00-0.06 H LYMPH x10^3 (test code = 731-0) 2.67 10*3/uL 1.32-3.29 MONO x10^3 (test code = 742-7) 1.12 10*3/uL 0.33-0.92 H EOS x10^3 (test code = 711-2) 0.12 10*3/uL 0.03-0.39 BASO x10^3 (test code = 704-7) 0.06 10*3/uL 0.01-0.07 Lab Interpretation (test code = 12929-3) Abnormal [facility] [id number] 04:27:00* Test Item Value Reference Range Interpretation Comme nts POCT PREG (test code = 1605) Negative On board controls acceptable with C Line (test code = 3574) Yes POCT PREG LOT # (test code = 3575) [id number] POCT PREG TEST DATE ( test code = 3576) 10-01-2024 Lab Interpretation (test cod e = 50296-3) Normal [facility]. METABOLIC PANEL (77807)2023-07-17 02:17:29* Test Item Value Reference Range Interpretation Comme nts NA (test code = 3210529576) 140 mmol/L 135-145 K (test code = 0090689190) 3.9 mmol/L 3.5-5.0 CL (test code = 1516169276) 103 mmol/L 98-108 CO2 TOTAL (test code = 0639156225) 29 mmol/L 23-31 AGAP (test code = 5186004254) 8 2-16 BUN (test code = 5999817158) 10 mg/dL 7-23 GLUCOSE (test code = 6461249495) 95 mg/dL 70-110 CREATININE (test code = 4567465821) 0.84 mg/dL 0.50-1.04 TOTAL BILI (test code = 5186087112) 0.3 mg/dL 0.1-1.1 CALCIUM (test code = 7603102186) 9.1 mg/dL 8.6-10.6 T PROTEIN (test code = 8192537586) 8.4 g/dL 6.3-8.2 H ALBUMIN (test code = 6346862211) 4.5 g/dL 3.5-5.0 ALK PHOS (test code = 7787608285) 80 U/L 34-122 ALTv (test code = 1742-6) 16 U/L 5-35 AST(SGOT) (test code = 5261190030) 22 U/L 13-40 eGFR (test code = 52153-1) 102.2 mL/min/1.73m2 CKD-EPI eGFR (2020). Assuming creatinine has been stable day-to-day for at least three months, the eGFR indicates Category G1 (>= 90 mL/min/1.73 m2) Lab Interpretation (test code = 01543-2) Abnormal [facility] WITH [id number] 02:15:48* Test Item Value Reference Range Interpretation [...] 33.3 g/dL 31.6-35.1 RDW-SD (test code = 32782-8) 42.6 fL 39.0-49.9 RDW-CV (test code = 788-0) 13.2 % 12.0-15.5 PLT (test code = 777-3) 277 See_Comment [Automated messa ge] The system which generated this result transmitted reference range: 166 - 358 10*3/?L. The reference range was not used to interpret this result as normal/abnormal. MPV (test code = 38468-5) 10.5 fL 9.5-12.9 NRBC/100 WBC (test code = 3293801039) 0.0 See_Comment [Automated [employer] ssage] The system which generated this result transmitted reference range: 0.0 - 10.0 /100 WBCs. The reference range was not used to interpret this result as normal/abnormal. NRBC x10^3 (test code = 6303396166) See_Comment [Automated messa ge] The system which generated this result transmitted reference range: 10*3/?L. The reference range was not used to interpret this result as normal/abnormal. GRAN MAT (NEUT) % (test code = 770-8) 60.3 % IMM GRAN % (test code = 1518281852) 0.30 % LYMPH % (test code = 736-9) 25.9 % MONO % (test code = 5905-5) 10.8 % EOS % (test code = 713-8) 2.0 % BASO % (test code = 706-2) 0.7 % GRAN MAT x10^3(ANC) (test code = 9541967824) 6.95 10*3/uL 1.88-7.09 IMM GRAN x10^3 (test code = 8520645782) 0.04 10*3/uL 0.00-0.06 LYMPH x10^3 (test code = 731-0) 2.99 10*3/uL 1.32-3.29 MONO x10^3 (test code = 742-7) 1.25 10*3/uL 0.33-0.92 H EOS x10^3 (test code = 711-2) 0.23 10*3/uL 0.03-0.39 BASO x10^3 (test code = 704-7) 0.08 10*3/uL 0.01-0.07 H Lab Interpretation (test code = 40006-6) Abnormal [facility] [id number] 01:53:00* Test Item Value Reference Range Interpretation Comme nts POCT PREG (test code = 1605) Negative On board controls acceptable with C Line (test code = 3574) Yes POCT PREG LOT # (test code = 3575) [id number] POCT PREG TEST DATE ( test code = 3576) 2024-11-29 Lab Interpretation (test cod e = 85058-1) Normal [facility] [id number] 20:06:00* Test Item Value Reference Range Interpretation Comme nts POCT PREG (test code = 1605) Negative On board controls acceptable with C Line (test code = 3574) Yes POCT PREG LOT # (test code = 3575) POCT PREG TEST DATE ( test code = 3576) [facility] W SPECIFIC [id number] 20:01:00* Test Item Value Reference Range Interpretation [...] U APPEAR (test code = 3267) cloudy [facility] SCREEN (ANGELIC) [id number] 19:07:18 * Test Item Value Reference Range Interpretation Comme [facility] Rubella screen IgG (test code = 8002094095) Positive Negative ZORAIDA (test code = ZORAIDA) Positive - Indicat es the patient was exposed to Rubella through infection or vaccination.Negative - Indicates the patient could be susceptible to Rubella infection.Equivocal - A second specimen should be sent. [facility] ([facility] [id number] 19:07:18 * Test Item Value Reference Range Interpretation Comme [facility] Rubella screen IgG (test code = 2775992162) Positive Negative ZORAIDA (test code = ZORAIDA) Positive - Indicat es the patient was exposed to Rubella through infection or vaccination.Negative - Indicates the patient could be susceptible to Rubella infection.Equivocal - A second specimen should be sent. [facility] CenterGAL ONLY - SYPHILIS [id number] 17:26:01* Test Item Value Reference Range Interpretation Comme [facility] Syphilis IgG/IgM (test code = 53145-5) Non-reactive Non-reactive ZORAIDA (test code = ZORAIDA) Non-reactive - No serologic evidence of T. pallidum infection. Cannot exclude incubating or early syphilis. Submit a second specimen in 2-4 weeks if syphilis is clinically suspected. Equivocal - Further testing to follow. Reactive - Further testing to follow. Lab Interpretation (test code = 82517-1) Normal [facility] CenterGALV ONLY - SYPHILIS [id number] 17:26:01* Test Item Value Reference Range Interpretation Comme nts Syphilis IgG/IgM (test code = 55623-3) Non-reactive Non-reactive ZORAIDA (test code = ZORAIDA) Non-reactive - No serologic evidence of T. pallidum infection. Cannot exclude incubating or early syphilis. Submit a second specimen in 2-4 weeks if syphilis is clinically suspected. Equivocal - Further testing to follow. Reactive - Further testing to follow. Lab Interpretation (test code = 24805-2) Normal [facility] CenterGLYCOSYLATED HEMOGLOBIN (A1C)2022-12-28 15:57:54* Test Item Value Reference Range Interpretation Comme nts HGB A1C (test code = 4548-4) 5.5 % 4.0-5.7 ZORAIDA (test code = ZORAIDA) Reference RangesNormal: <5.7%Prediabetes: 5.7 - 6.4%Diabetes: > 6.5% Lab Interpretation (test code = 39425-6) Normal [facility] CenterGLYCOSYLATED HEMOGLOBIN (A1C)2022-12-28 15:57:54* Test Item Value Reference Range Interpretation Comme nts HGB A1C (test code = 4548-4) 5.5 % 4.0-5.7 ZORAIDA (test code = ZORAIDA) Reference RangesNormal: <5.7%Prediabetes: 5.7 - 6.4%Diabetes: > 6.5% Lab Interpretation (test code = 25262-4) Normal [facility] CenterHI 1/2 AG-AB WITH [id number] 12:20:58* Test Item Value Reference Range Interpretation Comme nts HIV Semi-quantitative (test code = 27063-2) 0.07 Negative ZORAIDA (test code = ZORAIDA) Non-reactive for HIV-1 antigen and HIV-1/HIV-2 antibodies. ?No laboratory evidence of HIV infection. ?Repeat in 2-4 weeks if acute HIV infection is suspected. [facility] CenterHIV [facility]2 AG-AB WITH [id number] 12:20:58* Test Item Value Reference Range Interpretation Comme nts HIV Semi-quantitative (test code = 99066-3) 0.07 Negative ZORAIDA (test code = ZORAIDA) Non-reactive for HIV-1 antigen and HIV-1/HIV-2 antibodies. ?No laboratory evidence of HIV infection. ?Repeat in 2-4 weeks if acute HIV infection is suspected. [facility] CenterHCV [id number] 09:03:31* Test Item Value Reference Range Interpretation Comme nts HCV Ab (test code = 86860-3) Negative HCV Semi-Quantitative (test code = 24959-1) 0.02 [facility] CenterH[facility] [id number] 09:03:31* Test Item Value Reference Range Interpretation Comme nts HCV Ab (test code = 28603-3) Negative HCV Semi-Quantitative (test code = 60703-0) 0.02 [facility] CenterTHYROID STIMULATING [id number] 08:28:04 * Test Item Value Reference Range Interpretation Comme nts TSH (test code = 8033242485) 0.99 See_Comment [Automated messa ge] The system which generated this result transmitted reference range: 0.45 - 4.70 mIU/L. The reference range was not used to interpret this result as normal/abnormal. Lab Interpretation (test code = 04948-2) Normal [facility] CenterTHYROID STIMULATING [id number] 08:28:04 * Test Item Value Reference Range Interpretation Comme nts TSH (test code = 7547619586) 0.99 See_Comment [Automated messa ge] The system which generated this result transmitted reference range: 0.45 - 4.70 mIU/L. The reference range was not used to interpret this result as normal/abnormal. Lab Interpretation (test code = 14657-3) Normal [facility] CenterCB WITH [id number] 07:54:04* Test Item Value Reference Range Interpretation [...] 32.7 g/dL 31.6-35.1 RDW-SD (test code = 99166-6) 42.5 fL 39.0-49.9 RDW-CV (test code = 788-0) 13.0 % 12.0-15.5 PLT (test code = 777-3) 232 See_Comment [Automated messa ge] The system which generated this result transmitted reference range: 166 - 358 10*3/?L. The reference range was not used to interpret this result as normal/abnormal. MPV (test code = 04760-4) 11.5 fL 9.5-12.9 NRBC/100 WBC (test code = 8667176155) 0.0 See_Comment [Automated [employer] ssage] The system which generated this result transmitted reference range: 0.0 - 10.0 /100 WBCs. The reference range was not used to interpret this result as normal/abnormal. NRBC x10^3 (test code = 3203545206) See_Comment [Automated [employer] ge] The system which generated this result transmitted reference range: 10*3/?L. The reference range was not used to interpret this result as normal/abnormal. GRAN MAT (NEUT) % (test code = 770-8) 57.6 % IMM GRAN % (test code = 1275074790) 0.20 % LYMPH % (test code = 736-9) 29.9 % MONO % (test code = 5905-5) 8.6 % EOS % (test code = 713-8) 2.7 % BASO % (test code = 706-2) 1.0 % GRAN MAT x10^3(ANC) (test code = 4062404337) 5.43 10*3/uL 1.88-7.09 IMM GRAN x10^3 (test code = 7724405348) 0.00-0.06 LYMPH x10^3 (test code = 731-0) 2.81 10*3/uL 1.32-3.29 MONO x10^3 (test code = 742-7) 0.81 10*3/uL 0.33-0.92 EOS x10^3 (test code = 711-2) 0.25 10*3/uL 0.03-0.39 BASO x10^3 (test code = 704-7) 0.09 10*3/uL 0.01-0.07 H Lab Interpretation (test code = 74644-4) Abnormal [facility] WITH [id number] 07:54:04* Test Item Value Reference Range Interpretation Comme nts WBC (test code = 6690-2) 9.41 See_Comment [Automated [employer] ge] The system which generated this result transmitted reference range: 4.30 - 11.10 10*3/?L. The reference range was not used to interpret this result as normal/abnormal. RBC (test code = 789-8) 4.84 See_Comment [Automated [employer] ge] The system which generated this result [...] 32.7 g/dL 31.6-35.1 RDW-SD (test code = 70516-0) 42.5 fL 39.0-49.9 RDW-CV (test code = 788-0) 13.0 % 12.0-15.5 PLT (test code = 777-3) 232 See_Comment [Automated [employer] ge] The system which generated this result transmitted reference range: 166 - 358 10*3/?L. The reference range was not used to interpret this result as normal/abnormal. MPV (test code = 94434-1) 11.5 fL 9.5-12.9 NRBC/100 WBC (test code = 3516000698) 0.0 See_Comment [Automated [employer] ssage] The system which generated this result transmitted reference range: 0.0 - 10.0 /100 WBCs. The reference range was not used to interpret this result as normal/abnormal. NRBC x10^3 (test code = 7593100287) See_Comment [Automated [employer] ge] The system which generated this result transmitted reference range: 10*3/?L. The reference range was not used to interpret this result as normal/abnormal. GRAN MAT (NEUT) % (test code = 770-8) 57.6 % IMM GRAN % (test code = 5892648458) 0.20 % LYMPH % (test code = 736-9) 29.9 % MONO % (test code = 5905-5) 8.6 % EOS % (test code = 713-8) 2.7 % BASO % (test code = 706-2) 1.0 % GRAN MAT x10^3(ANC) (test code = 0440971444) 5.43 10*3/uL 1.88-7.09 IMM GRAN x10^3 (test code = 9559333178) 0.00-0.06 LYMPH x10^3 (test code = 731-0) 2.81 10*3/uL 1.32-3.29 MONO x10^3 (test code = 742-7) 0.81 10*3/uL 0.33-0.92 EOS x10^3 (test code = 711-2) 0.25 10*3/uL 0.03-0.39 BASO x10^3 (test code = 704-7) 0.09 10*3/uL 0.01-0.07 H Lab Interpretation (test code = 47050-1) Abnormal [facility] [id number] 16:47:00* Test Item Value Reference Range Interpretation Comme nts POCT PREG (test code = 1605) Negative On board controls acceptable with C Line (test code = 3574) Yes POCT PREG LOT # (test code = 3575) POCT PREG TEST DATE ( test code = 3576) [facility] [id number] 16:47:00* Test Item Value Reference Range Interpretation Comme nts POCT PREG (test code = 1605) Negative On board controls acceptable with C Line (test code = 3574) Yes POCT PREG LOT # (test code = 3575) POCT PREG TEST DATE ( test code = 3576) [facility] [id number] 04:35:00* Test Item Value Reference Range Interpretation Comme nts POCT PREG (test code = 1605) negative On board controls acceptable with C Line (test code = 3574) present POCT PREG LOT # (test code = 3575) [id number] POCT PREG TEST DATE ( test code = 3576) 2023-11-25 Lab Interpretation (test cod e = 01371-3) Normal [facility] CenterS[facility]ICAL2022-05-24 12:21:00* Test Item Value Reference Range Interpretation Comme nts SURGICAL (test code = SR) R UN DATE: 01/17/22 [facility] - Lab PAGE 1 RUN TIME: 1221 Specimen Inquiry RUN USER: INTERFACE P ATIENT: KATRIN PEREZ #: [id number] LOC: ARIELA U #: [id number] AGE/SX: 16/F ROOM: RE01/06/22REG DR: Facundo Kwon MD : 03 BED: DIS: STATUS: [facility] TLOC: SPEC #: [id number] RECD: 01/09/22 STATUS: JORDAN RE #: [id number] KI: 01/06/22-[address] [facility] [address]: Facundo Kwon MD ENTERED: 01/09/22 SP TYPE: SURGICAL OTHR DR: DOES_NOT KNOW ORDERED: 86708/2, 14534, ANATOMIC SPEC COPIES TO: DOES_NOT KNOW Facundo Kwon MD [address] [place] [address] PROCEDURES: 58667 (01/09/22-715) 47179 (01/10/22-1630) TISSUES: A. DUODENUM BIOPSY B. STOMACH [...] ON NEXT PAGE R UN DATE: 01/17/22 [facility] PAGE 2 RUN TIME: 1221 Specimen Inquiry RUN USER: INTERFACE S TUSHAR #: [id number] PATIENT: KATRIN PEREZ #[id number] (Continued) GROSS DESCRIPTION (Continued) Technical component excluding immunohistochemistry is performed at [facility], [address] [place] [address] Technical component of all immunohistochemistry is performed at [facility], [address] [place] [address], [address], [place] [address] Immunohistochemistry: This test was developed and its [...] 01/17/22 1221 END OF REPORT UR HCG [id number] 12:02:00* Test Item Value Reference Range Interpretation Comme nts UR HCG QUAL (test code = HCGQLU) NEGATIVE This HCGQL test is NOT applicable for MALE patients.Check with nurse about probable order error.If Tumor Marker Test needed, nurse should order test "HCGTU"(Test #550.24226) Notes Date/Time Note Provider Source 2024-05-29 17:41:00 Not in lobby Lynda Mejia RN [facility] [employer] 2024-05-29 17:38:00 [facility] 16:16:33 Summary: Triage CC: Patient vomited this morning and is late on her period, patient is here for a test PMHx: none PSH:none MEDS:none LMP: 04/19/24 Tetanus: UTD Awake, alert, oriented, resp reg unlabored, skin warm, color appropriate for race, moves all ext without difficulty, amb with out assistance Appears in no distress Shu Singh RN [facility] 2023-10-26 23:53:53 Pt discharged home following ERP eval. Pt given all education and information regarding s/s of worsening condition, the importance of follow up and prescription use and purpose. Pt verbalized understanding. Alert and ambulatory to pov with family. WORKER Charlie Romero RN [facility] 2023-10-26 21:57:03 Pt given urine cup and placed in the lobby, pt advice to notify nurse with any other concerns or if symptoms worsen. [facility] 2023-10-26 21:53:04 Vaginal bleeding that started today with clots, pt states that she has used 4 pads. Pt c/o lower pelvic and lower back pain. Pt states LMP: 10/13/2023 WORKER Cassandra Nassar RN [facility] 2023-09-20 23:01:05 Pt given printed and verbal [...] with steady gait, in no apparent distress WORKER Sulema Leger RN [facility] 2023-09-20 22:13:39 Pt arrives ambulatory to ED reporting that her lymph nodes are swollen and has been since she was here last time. After review pt was seen here 07/16/2023. She also wanted to be checked for all STD's. WORKER Heidi Hall RN [facility] 2022-01-06 15:10:00 ([facility] Post Anesthesia Evaluation REPORT#:[id number] REPORT STATUS: Signed DATE:01/06/22 TIME: 1510 PATIENT: KATRIN PEREZ UNIT #: [id number] ROOM/BED: : 03 AGE: 16 SEX: F [...] outpts eval prior DC home at 1511 [facility] #:[id number] END OF REPORT [facility] 2022-01-06 13:42:00 [id number] PATIENT NAME: KATRIN PEREZ ADMIT DATE: 01/06/22 ACCOUNT NO: [id number] ROOM NO: AGE: 16 REPORT TYPE: ENDOSCOPY [...] 1:42 PM Procedure Code(s): --- Professional --- 73107, Esophagogastroduodenoscopy, flexible, transoral; with biopsy, single or multiple Diagnosis Code(s): --- Professional --- K29.80, Duodenitis without bleeding R10.13, Epigastric pain K30, Functional dyspepsia CPT copyright 2020 [employer]. All rights reserved. The codes documented in this report are preliminary and upon lining stuffer review may be revised to meet current compliance requirements. Scope In: Scope Out: Provation {[id number]}. pdf ProVation FT PDF PATIENT NAME: KATRIN PEREZ at 1359 PATIENT NAME: KATRIN PEREZ [facility]
[2024-06-16 22:58] LABS: Sqamous Epithelial <5 /HPF (None Seen); Urine Bacteria None Seen /HPF (<20); Urine Bilirubin NEGATIVE (Negative); Urine Blood Negative (Negative); Urine Clarity Clear (Clear); Urine Color Light-Yellow (Yellow); Urine Culture Reflex Order NOT NEEDED; Urine Glucose NEGATIVE (Negative); Urine Ketones NEGATIVE (Negative); Urine Microscopic Reflex YN ORDER UMIC; Urine Mucus 1+ /HPF (None Seen); Urine Nitrite NEGATIVE (Negative); Urine Protein TRACE (Negative); Urine RBC <5 /HPF (None Seen); Urine Urobilinogen Normal (Normal); Urine WBC <5 /HPF (<5); Urine Yeast (Budding) Trace /HPF (None Seen); Urine pH 6.5 (5.0-7.0)
--- NOTE | 2024-06-16 23:57 | ER ---
Nurse's Notes [facility] Name: Lizzie Chase Age: 19 yrs Sex: Female : 2005 Arrival Date: 06/16/2024 Time: 20:57 Bed 12 Private MD: Diagnosis: Vaginal Discharge Presentation: 06/16 21:19 Chief complaint: Patient states: Headache , nausea, abdominal pain, vaginal discharge cm10 and foul odor. pt also reports that her period is 33 days late and has had negative at home test. PT states that she wants to be checked for STD and check for with blood work. Coronavirus screen: Client denies travel out of the [place] in the last 14 days. Ebola Screen: Patient denies travel to an Ebola-affected area in the 21 days before illness onset. No symptoms or risks identified at this time. Initial Sepsis Screen: Does the patient meet any 2 criteria? No. Patient's initial sepsis screen is negative. Does the patient have a suspected source of infection? No. Patient's initial sepsis screen is negative. Risk Assessment: Do you want to hurt yourself or someone else? Patient reports no desire to harm self or others. Onset of symptoms was June 16, 2024. 21:19 Method Of Arrival: Ambulatory cm10 21:19 Acuity: NACHO 3 cm10 Triage Assessment: 21:21 General: Appears in no apparent distress. comfortable, Behavior is calm, cooperative. cm10 Neuro: No deficits noted. Level of Consciousness is awake, alert, obeys commands, Oriented to person, place, time, situation, Appropriate for age. Respiratory: No deficits noted. Airway is patent Respiratory effort is even, unlabored, Respiratory pattern is regular, symmetrical. 06/17 00:02 GI: Reports. ar6 FLAME CUTTER: 06/16 21:21 LMP 04/15/2024, unknown cm10 Historical: - Allergies: 21:21 No Known Allergies; cm10 - Home Meds: 21:21 None [Active]; cm10 - PMHx: 21:21 None; cm10 - PSHx: 21:21 None; cm10 - Immunization history:: Adult Immunizations unknown. - Infectious Disease History:: Denies. - Social history:: Smoking status: unknown. Screenin:45 [place] [facility] Fall Risk Assessment (Adult) History of falling in the last 3 months, ar6 including since admission No falls in past 3 months (0 pts) Confusion or Disorientation No (0 pts) Intoxicated or Sedated No (0 pts) Impaired Gait No (0 pts) Mobility Assist Device Used No (0 pt) Altered Elimination No (0 pt) Score/Fall Risk Level 0 - 2 = Low Risk Oriented to surroundings, Maintained a safe environment, Educated pt \T\ family on fall prevention, incl call for assistance when getting out of bed, Hourly rounding (assess needs \T\ fall precautionary measures) done. Abuse screen: Denies threats or abuse. Denies injuries from another. Nutritional screening: No deficits noted. Tuberculosis screening: No symptoms or risk factors identified. Assessment: 22:45 General: Appears in no apparent distress. comfortable, Behavior is calm, cooperative, ar6 appropriate for age. Pain: Denies pain. Neuro: Level of Consciousness is awake, alert, obeys commands, Oriented to person, place, time, situation. Cardiovascular: Capillary refill < 3 seconds. Respiratory: Airway is patent. GI: Abdomen is round non-distended, Abd is soft X 4 quads Abdomen is tender to palpation in suprapubic area. : Urine is cloudy, pt. reports odor and discharge. EENT: Oral mucosa is moist. Derm: Skin is intact, is healthy with good turgor, Skin is dry, Skin is pink, warm \T\ dry. Musculoskeletal: No signs and/or symptoms reported regarding the musculoskeletal system. Vital Signs: 21:19 BP 135 / 72; Pulse 92; Resp 16; Temp 97.1; Pulse Ox 99% on R/A; Weight 77.11 kg; Height cm10 5 ft. 0 in. ; Pain 0/10; 22:45 BP 126 / 67; Pulse 77; Resp 17; Pulse Ox 99% on R/A; Pain 0/10; ar6 21:19 Body Mass Index 33.20 (77.11 kg, 152.4 cm) cm10 21:19 Pain Scale: Adult cm10 22:45 Pain Scale: Adult ar6 ED Course: 20:58 Patient arrived in ED. jj6 21:01 Preethi Corbin [facility]-C [facility]. kb 21:01 Maged Hernandez MD is Attending Physician. kb 21:21 Triage completed. cm10 21:22 Arm band placed on Patient placed in waiting room. cm10 22:45 No apparent distress. ar6 22:45 Patient has correct armband on for positive identification. Bed in low position. Call ar6 light in reach. Side rails up X 1. Provided Education on: plan of care. Pulse ox on. NIBP on. Door closed. Lights dimmed. Moved to private room. Warm blanket given. 22:45 No provider procedures requiring assistance completed. Patient did not have IV access ar6 during this emergency room visit. 23:07 Maryann Min, RN is Primary Nurse. ar6 23:07 GC (Hi/Chl) Probe VAGINAL (Do not order if pt is under 13, order Culture instead) Sent.ar6 23:07 Wet Prep Sent. ar6 Administered Medications: No medications were administered Medication: 22:45 VIS not applicable for this client. ar6 Outcome: 23:56 Discharge ordered by . kb 23:58 Discharged to home ambulatory, ar6 23:58 Condition: good 23:58 Discharge instructions given to patient, Instructed on discharge instructions, follow up and referral plans. Demonstrated understanding of instructions, follow-up care, 06/17 00:02 Patient left the ED. ar6 Signatures: Preethi Corbin, PRODUCT SAFETY TEST ENGINEER-C PRODUCT SAFETY TEST ENGINEER-CkJohnna Drew jj6 Lavern Brumfield RN RN cm10 Maryann Min, RN RN ar6
--- NOTE | 2024-06-16 23:57 | EDPHYS ---
Physician Documentation [facility] Name: Lizzie Chase Age: 19 yrs Sex: Female : 2005 Arrival Date: 06/16/2024 Time: 20:57 Bed 12 Private MD: ED Physician Maged Hernandez HPI: 06/17 00:18 This 19 yrs old Female presents to ER via Ambulatory with complaints of Pelvic kb Pain, Nausea, Vaginal Discharge, Vaginal Itching. 00:18 Pt is a 19 year old female who presents for intermittent vaginal discharge that started kb 33 days ago when she missed her last period. States she has taken home tests that were negative. Denies vaginal bleeding, abd pain. FINANCE ADMIN: 06/16 21:21 LMP 04/15/2024, unknown cm10 Historical: - Allergies: 21:21 No Known Allergies; cm10 - Home Meds: 21:21 None [Active]; cm10 - PMHx: 21:21 None; cm10 - PSHx: 21:21 None; cm10 - Immunization history:: Adult Immunizations unknown. - Infectious Disease History:: Denies. - Social history:: Smoking status: unknown. ROS: 06/17 00:18 Constitutional: As per HPI kb Exam: 00:18 Constitutional: This is a well developed, well nourished patient who is awake, alert, kb and in no acute distress. Head/Face: Normocephalic, atraumatic. ENT: Moist Mucous membranes Cardiovascular: Regular rate Respiratory: Respirations even and unlabored. No increased work of breathing. Talking in full sentences Abdomen/GI: Soft, non-tender. No distention Skin: Warm, dry with normal turgor. Normal color. MS/ Extremity: Pulses equal, no cyanosis. Neurovascular intact. Full, normal range of motion. Neuro: Awake and alert, GCS 15, oriented to person, place, time, and situation. Vital Signs: 06/16 21:19 BP 135 / 72; Pulse 92; Resp 16; Temp 97.1; Pulse Ox 99% on R/A; Weight 77.11 kg; Height cm10 5 ft. 0 in. ; Pain 0/10; 22:45 BP 126 / 67; Pulse 77; Resp 17; Pulse Ox 99% on R/A; Pain 0/10; ar6 21:19 Body Mass Index 33.20 (77.11 kg, 152.4 cm) cm10 21:19 Pain Scale: Adult cm10 22:45 Pain Scale: Adult ar6 MDM: 21:01 Medical Screening Exam initiated kb 06/17 00:18 Differential diagnosis: UTI, STI. Data reviewed: vital signs, nurses notes. Counseling: kb I had a detailed discussion with the patient and/or guardian regarding the historical points, exam findings, and any diagnostic results supporting the discharge/admit diagnosis, lab results, the need for outpatient follow up, an OB/Gyne specialist, to return to the emergency department if symptoms worsen or persist or if there are any questions or concerns that arise at home. 06/16 21:24 Order name: Test, Urine; Complete Time: 23:00 kb 06/1624 Order name: Urinalysis w/ reflexes; Complete Time: 23:00 kb 06/16 21:24 Order name: Wet Prep; Complete Time: 23:54 kb 06/16 21:24 Order name: GC (Hi/Chl) Probe VAGINAL (Do not order if pt is under 13, order Culture kb instead) Administered Medications: No medications were administered Disposition: 04:55 Co-signature as Attending Physician, Maged Hernandez MD I agree with the assessment sp4 and plan of care. I reviewed the patient's care provided by the Advanced Practice Provider and agree with the diagnosis and treatment plan. Disposition Summary: 06/16/24 23:56 Discharge Ordered Notes: Location: Home kb Condition: Stable kb Diagnosis - Vaginal Discharge kb Followup: kb - With: Emergency Department - When: As needed - Reason: Worsening of condition Followup: kb - With: Private Physician - When: 2 - 3 days - Reason: Recheck today's complaints, Continuance of care, Re-evaluation by your physician Discharge Instructions: - Discharge Summary Sheet kb - Vaginitis, [id number] kb Forms: - Medication Reconciliation Form kb - Antibiotic Education kb - Prescription Opioid Use kb - Patient Portal Instructions kb - Leadership Thank You Letter kb Signatures: Dispatcher [employer] Preethi Dickinson, Maged Nguyen MD MD sp4 Lavern Brumfield, RN RN cm10
[2024-06-17 05:50] VITALS: TEMP 97.1; O2SAT 99
[2024-06-17 05:51] VITALS: BP 126/67
[2024-06-19 21:20] LABS: C.trachomatis RNA,TMA Not Detected (Not Detected); N.gonorrhoeae RNA,TMA Not Detected (Not Detected)
== END 2024-06-17 00:02 | disposition home or self-care (01) ==
LOC: ER 20:57
DX: N89.8 Other specified noninflammatory disorders of vagina (principal); R10.2 Pelvic and perineal pain
CPT/HCPCS: 81001; 81025; 87210; 87490; 87590; 99283

== ENCOUNTER 2024-07-22 17:31 | Emergency (ER) | payer OTHER ==
--- OUTSIDE RECORDS SUMMARY | 2024-07-22 17:36 | XMS REPORT | Continuity of Care Document ---
Author Name Unknown Address [address] [place] [address] [facility] Address [address] [facility] [address] [place] [address] Care Team Providers Care Dean Of Graduate Studies Name Role Phone LIDIA PHELAN Primary Care Physician Vannesa vailable LES HUGGINS Attending Clinician Unavailabl PHAN Ibarra Attending Clinician Unavailable Kristian TERRELL Attending Clinician Unavailable Kristian TERRELL Attending Clinician Unavailable Kristian Denney Attending Clinician [phone] ALAN BAEZA Attending Clinician Unavailable GERARD NOBLES Attending Clinician Unavailable Gerard Suazo Attending Clinician [phone] CATRACHITA NGUYEN Attending Clinician Unavail able Doctor Unassigned, [place] Attending Clinician ROBERTO Echavarria Attending Clinician Unavailable Roberto Griffith MD Attending Clinician [phone] Sandi Cardozo NP Attending Clinician [phone] VIANEY GARCIA Attending Clinician Unavailable FAROOQ DAVIS Attending Clinician Unavailable Farooq Barnett Attending Clinician [phone] Unknown, Attending Attending Clinician Unavailab JOYCE Kumar Attending Clinician Unavailsiddhartha Lopez CNM Joyce Carl Attending Clinician [phone] WENDY JANE Attending Clinician UnavailWENDY Crane Attending Clinician UnavailALEXIS Shore Attending Clinician Unavailable Andres PACJudsonya S Attending Clinician [phone] ANNABELLE JO Attending Clinician Unavailable BANDAR CASTILLO Attending Clinician Unavailable Bandar Castillo MD Attending Clinician [phone] Facundo Kwon Attending Clinician Unavailable Mayra Pandey Attending Clinician + [phone] MAYRA SAAVEDRA Attending Clinician Unavailab RENETTA Lam S Attending Clinician Unavailable Renetta Clark S Attending Clinician [phone] , [facility] Attending Clinician Unavailable Annabelle Jo PA-C Attending Clinician [phone] Nurse, [facility] Attending Clinician Un available Vianey Garcia MD Attending Clinician [phone] Samanta Petty MD Attending Clinician [phone] Teri GARCIA, Lucrecia Martínez Attending Clinician Unavailable Belinda Hall DO Attending Clinician [phone] Les Huggins MD Attending Clinician [phone] Lab, [facility] Attending Clinician Unavailab Page Gorman Attending Clinician [phone] PAGE MEDINA Attending Clinician Unavailable PANKAJ REESE Attending Clinician UnavailMariaa Mccormack NP Attending Clinician [phone] MARIAA RAE Attending Clinician Unavailable LES HUGGINS Admitting Clinician UnavailSANDI Vaughan Admitting Clinician Unavailable KNOW, DOES_NOT Admitting Clinician Unavailable Les Huggins MD Admitting Clinician [phone] BELINDA HALL Admitting Clinician Unavailab niko Payers Payer Name Policy Type Policy Number Effective Date Expirati on Date Source [facility] [id number] 2020 00:00:00 [employer] W/ YADY LÓPEZ OOO [id number] 2024 00:00:00 [facility] SHAYLA DURAN COPAY FOCUS 9 [id number] 2023 00:00:00 Problems Condition Name Condition Details Condition Category Status Onset Date Resolution Date Last Treatment Date Treating Clinician Comments Source Obesity (BMI 30-39.9) Obesity (BMI 30-39.9) Disease Active 12-30 00:00: 00 [facility] BMI 29.0-29.9, adult BMI 29.0-29.9, adult Disease Active 12-29 00:00: 00 [facility] Menorrhagi a with irregular cycle Menorrhagi a with irregular cycle Disease Active 11-09 00:00: 00 [facility] Encounter for other general counseling or advice on contracept ion Encounter for other general counseling or advice on contracept ion Disease Resolve d - 00:00: 00 2022-12-30 00:00:00 2022-12-30 11:00:39 [facility] BMI 29.0-29.9, adult BMI 29.0-29.9, adult Disease Resolve d 5-05 00:00: 00 2022-12-30 00:00:00 2022-12-30 11:00:33 [facility] Vitamin D deficiency Vitamin D deficiency Disease Resolve d -16 00:00: 00 2022-12-30 00:00:00 2022-12-30 11:00:56 [facility] Depo-Prove ra contracept kamran status Depo-Prove ra contracept kamran status Disease Resolve d 3-16 00:00: 00 2022-12-30 00:00:00 2022-12-30 11:00:37 [facility] Acute medial meniscus tear, left, subsequent encounter Acute medial meniscus tear, left, subsequent encounter Disease Resolve d 9-22 00:00: 00 2022-12-30 00:00:00 2022-12-30 11:00:54 Overview: Formattin g of this note might be different from the original. Added automatic ally from request for surgery [id number] [facility] Allergies, Adverse Reactions, Alerts Allergy Name Allergy Type Status Severity Reaction(s) Onset Date Inactive Date Treating Clinician Comments Source No Known Allergie s DA Active U 01-06 00:00: 00 [facility] ER NO KNOWN ALLERGIE S Drug Class Active [facility] Social History Social Habit Start Date Stop Date Quantity Comments Source Gender [facility] History SDOH Alcohol Comment [place] [facility] Alcoholic beverage intake 2023-10-26 00:00:00 2023-10-26 00:00:00 Lifetime non-drinker (finding) [facility] Alcohol intake 2023-10-26 00:00:00 2023-10-26 00:00:00 Lifetime non-drinker (finding) [facility] Exposure to SARS-CoV-2 (event) 2022-12-26 00:00:00 2023-01-05 08:00:00 Not sure [facility] Tobacco use and exposure 2022-12-27 00:00:00 2022-12-27 00:00:00 Smokeless tobacco non-user [facility] History of Social function 2022-12-27 00:00:00 2022-12-27 00:00:00 [facility] History SDOH Alcohol Frequency 2020-04-05 00:00:00 2020-04-05 00:00:00 1 [facility] History SDOH Alcohol Std Drinks 2020-04-05 00:00:00 2020-04-05 00:00:00 99 [facility] History SDOH Alcohol Binge 2020-04-05 00:00:00 2020-04-05 00:00:00 1 [facility] Sex assigned at 2003 00:00:00 2003 00:00:00 [facility] Smoking Status Start Date Stop Date Source Never smoked tobacco [facility] Medications Ordered Medication Name Filled Medication Name Start Date Stop Date Current Medication? Ordering Clinician Indication Dosage Frequency Signature (SIG) Comments Components Source cefdinir 300 mg capsule 2023-08 00:00: 00 06-09 04:59 :00 Yes [id number] 300mg Take 1 capsule by mouth every 12 (twelve) hours for 10 days. [facility] ketorolac (TORADOL) injection 30 mg 10-26 06:00: 00 10-26 05:23 :00 No 30mg 30 mg, Slow IV Push, ONCE, 1 dose, On Sun10/27/23 at 0000, Routine [facility] cefTRIAXone (ROCEPHIN) 1,000 mg in NaCl 0.9% (NS) 100 mL MINI-BAG 10-26 05:15: 00 10-26 05:52 :00 No 1000mg 1,000 mg, IV Piggyback, ONCE, 1 dose, On Sun10/26/23 at 2315, Administer over 30 Minutes, 100 mL
Reas on for Anti-Infec tive: Documented Infection< br>Documen christiano Infection Site: Urine
D uration of Therapy: Other (see Comments) [facility] cefdinir 300 mg capsule 10-25 00:00: 00 11-02 05:59 :00 No [id number] 300mg Take 1 capsule by mouth in the morning and 1 capsule in the evening. Do all this for 7 days. [facility] methylPREDN ISolone 4 mg tablets 09-20 00:00: 00 Yes [id number] Take by mouth SEE-INSTRU CTIONS. follow package directions [facility] amoxicillin -clavulanat e 875-125 mg per tablet 09-20 00:00: 00 Yes [id number] 1{tbl} Take 1 tablet by mouth every 12 (twelve) hours. [facility] iopamidol (ISOVUE 370-500 mL) injection 100 mL 2022-08 03:30: 00 07-17 03:30 :00 No [id number] 100mL 100 mL, Intravenou s, ONCE, 1 dose, On 07/16/23 at 2130, Routine [facility] methylPREDN ISolone 4 mg tablets 2022-08 00:00: 00 Yes [id number] Take by mouth SEE-INSTRU CTIONS. follow package directions [facility] clindamycin 300 mg capsule 2022-08 1-20 00:00: 00 07-27 05:59 :00 No [id number] 300mg Take 1 capsule by mouth 4 (four) times daily for 10 days. [facility] cefdinir 300 mg capsule 9- 00:00: 00 05-28 04:59 :00 No [id number] 600mg Take 2 capsules by mouth in the morning for 10 days. [facility] acetaminoph en (TYLENOL) tablet 650 mg 01-05 13:15: 00 01-05 13:14 :00 No 650mg 650 mg, Oral, ONCE, 1 dose, On Sun01/05/23 at 0815, ALLI [facility] amoxicillin 500 mg capsule 01-05 00:00: 00 Yes [id number] 500mg Take 1 capsule by mouth in the morning and 1 capsule at noon and 1 capsule in the evening. [facility] ondansetron 4 mg disintegrat ing tablet 01-05 00:00: 00 Yes [id number] 4mg Take 1 tablet by mouth every 4 (four) hours as needed for Nausea and Vomiting (N/V). [facility] naproxen 500 mg tablet 01-05 00:00: 01-16 04:59 :00 No [id number] 500mg Take 1 tablet by mouth in the morning and 1 tablet in the evening. Take with meals. Do all this for 10 days. [facility] norethindro ne-arminda.estrad ioL-iron (MICROGESTI N FE) 1.5 mg-30 mcg (21)/75 mg (7) per tablet 12-27 00:00: 00 Yes [id number] 1{tbl} Take 1 tablet by mouth in the morning. [facility] naproxen (NAPROSYN) 500 mg tablet 09-27 00:00: 00 12-27 00:00 :00 No [id number] 500mg Take 1 tablet by mouth in the morning and 1 tablet in the evening. Take with meals. [facility] ibuprofen (IBU) tablet 800 mg 30 04:30: 00 09-25 04:33 :00 No 800mg 800 mg, Oral, ONCE, 1 dose, On 09/24/22 at 2230, ALLI [facility] No known medications 05 16:08: 37 No [facility] pantoprazol e 40 mg EC tablet 4-11 00:00: 00 12-29 00:00 :00 No 40mg Take 40 mg by mouth daily. [facility] metroNIDAZO LE 500 mg tablet 11-16 00:00: 00 12-29 00:00 :00 No [id number] 500mg Take 1 tablet by mouth every 12 (twelve) hours. [facility] ergocalcife rol, vitamin d2, 1,250 mcg (50,000 unit) capsule 1-15 00:00: 00 12-29 00:00 :00 No [id number] 06196U Take 1 capsule by mouth weekly. [facility] ranitidine (ZANTAC) 150 mg tablet 2-11 00:00: 00 12-29 00:00 :00 No 150mg Take 1 tablet by mouth 2 (two) times daily. Follow up with your MD for further evaluation and treatment. [facility] Immunizations Ordered Immunization Name Filled Immunization Name Date Status Comments Source [facility] 2022-12-27 00:00:00 Completed [facility] 2022-12-27 00:00:00 Completed [facility] HPV9 2022-12-27 00:00:00 Completed [facility] HPV9 2022-12-27 00:00:00 Completed [facility] Meningococcal Polysaccharide (groups A, C, Y and W-135) conjugate vaccine (MCV4P) 2020-03-30 00:00:00 Completed Meningococcal Polysaccharide (groups A, C, Y and W-135) conjugate vaccine (MCV4P) 2020-03-30 00:00:00 Completed [facility] Meningococcal Polysaccharide (groups A, C, Y and W-135) conjugate vaccine (MCV4P) 2020-03-30 00:00:00 Completed [facility] Meningococcal Polysaccharide (groups A, C, Y and W-135) conjugate vaccine (MCV4P) 2020-03-30 00:00:00 Completed [facility] HPV9 2016-04-17 00:00:00 Completed Meningococcal Polysaccharide (groups A, C, Y and W-135) conjugate vaccine (MCV4P) 2016-04-17 00:00:00 Completed TDAP 2016-04-17 00:00:00 Completed HPV9 2016-04-17 00:00:00 Completed [facility] Meningococcal Polysaccharide (groups A, C, Y and W-135) conjugate vaccine (MCV4P) 2016-04-17 00:00:00 Completed [facility] TDAP 2016-04-17 00:00:00 Completed [facility] HPV9 2016-04-17 00:00:00 Completed [facility] Meningococcal Polysaccharide (groups A, C, Y and W-135) conjugate vaccine (MCV4P) 2016-04-17 00:00:00 Completed [facility] TDAP 2016-04-17 00:00:00 Completed [facility] HPV9 2016-04-17 00:00:00 Completed [facility] Meningococcal Polysaccharide (groups A, C, Y and W-135) conjugate vaccine (MCV4P) 2016-04-17 00:00:00 Completed [facility] TDAP 2016-04-17 00:00:00 Completed [facility] HEPATITIS A 2009-06-30 00:00:00 Completed Varicella (varivax)(chicken pox) 2009-06-30 00:00:00 Completed HEPATITIS A 2009-06-30 00:00:00 Completed [facility] Varicella (varivax)(chicken pox) 2009-06-30 00:00:00 Completed [facility] HEPATITIS A 2009-06-30 00:00:00 Completed [facility] Varicella (varivax)(chicken pox) 2009-06-30 00:00:00 Completed [facility] HEPATITIS A 2009-06-30 00:00:00 Completed [facility] Varicella (varivax)(chicken pox) 2009-06-30 00:00:00 Completed [facility] DTaP, Unspecified Formulation 2007-06-10 00:00:00 Completed HEPATITIS A 2007-06-10 00:00:00 Completed Hib-HbOC 2007-06-10 00:00:00 Completed MMR 2007-06-10 00:00:00 Completed Pneumococcal 7 Conjugate, PCV7 (Prevnar7) 2007-06-10 00:00:00 Completed IPV 2007-06-10 00:00:00 Completed DTaP, Unspecified Formulation 2007-06-10 00:00:00 Completed [facility] HEPATITIS A 2007-06-10 00:00:00 Completed [facility] Hib-HbOC 2007-06-10 00:00:00 Completed [facility] MMR 2007-06-10 00:00:00 Completed [facility] Pneumococcal 7 Conjugate, PCV7 (Prevnar7) 2007-06-10 00:00:00 Completed [facility] IPV 2007-06-10 00:00:00 Completed [facility] DTaP, Unspecified Formulation 2007-06-10 00:00:00 Completed [facility] HEPATITIS A 2007-06-10 00:00:00 Completed [facility] Hib-HbOC 2007-06-10 00:00:00 Completed [facility] MMR 2007-06-10 00:00:00 Completed [facility] Pneumococcal 7 Conjugate, PCV7 (Prevnar7) 2007-06-10 00:00:00 Completed [facility] IPV 2007-06-10 00:00:00 Completed [facility] DTaP, Unspecified Formulation 2007-06-10 00:00:00 Completed [facility] HEPATITIS A 2007-06-10 00:00:00 Completed [facility] Hib-HbOC 2007-06-10 00:00:00 Completed [facility] MMR 2007-06-10 00:00:00 Completed [facility] Pneumococcal 7 Conjugate, PCV7 (Prevnar7) 2007-06-10 00:00:00 Completed [facility] IPV 2007-06-10 00:00:00 Completed [facility] DTaP, Unspecified Formulation 2004-03-30 00:00:00 Completed [facility] HIB 4 Dose Schedule 2004-03-30 00:00:00 Completed MMR 2004-03-30 00:00:00 Completed IPV 2004-03-30 00:00:00 Completed Varicella (varivax)(chicken pox) 2004-03-30 00:00:00 Completed DTaP, Unspecified Formulation 2004-03-30 00:00:00 Completed [facility] HIB 4 Dose Schedule 2004-03-30 00:00:00 Completed [facility] MMR 2004-03-30 00:00:00 Completed [facility] IPV 2004-03-30 00:00:00 Completed [facility] Varicella (varivax)(chicken pox) 2004-03-30 00:00:00 Completed [facility] DTaP, Unspecified Formulation 2004-03-30 00:00:00 Completed [facility] HIB 4 Dose Schedule 2004-03-30 00:00:00 Completed [facility] MMR 2004-03-30 00:00:00 Completed [facility] IPV 2004-03-30 00:00:00 Completed [facility] Varicella (varivax)(chicken pox) 2004-03-30 00:00:00 Completed [facility] DTaP, Unspecified Formulation 2004-03-30 00:00:00 Completed [facility] HIB 4 Dose Schedule 2004-03-30 00:00:00 Completed [facility] MMR 2004-03-30 00:00:00 Completed [facility] IPV 2004-03-30 00:00:00 Completed [facility] Varicella (varivax)(chicken pox) 2004-03-30 00:00:00 Completed [facility] DTaP, Unspecified Formulation 2003 00:00:00 Completed Hep B, Adol or Pedi Dosage 2003 00:00:00 Completed HIB 4 Dose Schedule 2003 00:00:00 Completed Pneumococcal 7 Conjugate, PCV7 (Prevnar7) 2003 00:00:00 Completed IPV 2003 00:00:00 Completed DTaP, Unspecified Formulation 2003 00:00:00 Completed [facility] Hep B, Adol or Pedi Dosage 2003 00:00:00 Completed [facility] HIB 4 Dose Schedule 2003 00:00:00 Completed [facility] Pneumococcal 7 Conjugate, PCV7 (Prevnar7) 2003 00:00:00 Completed [facility] IPV 2003 00:00:00 Completed [facility] DTaP, Unspecified Formulation 2003 00:00:00 Completed [facility] Hep B, Adol or Pedi Dosage 2003 00:00:00 Completed [facility] HIB 4 Dose Schedule 2003 00:00:00 Completed [facility] Pneumococcal 7 Conjugate, PCV7 (Prevnar7) 2003 00:00:00 Completed [facility] IPV 2003 00:00:00 Completed [facility] DTaP, Unspecified Formulation 2003 00:00:00 Completed [facility] Hep B, Adol or Pedi Dosage 2003 00:00:00 Completed [facility] HIB 4 Dose Schedule 2003 00:00:00 Completed [facility] Pneumococcal 7 Conjugate, PCV7 (Prevnar7) 2003 00:00:00 Completed [facility] IPV 2003 00:00:00 Completed [facility] DTaP, Unspecified Formulation 2003 00:00:00 Completed Hep B, Adol or Pedi Dosage 2003 00:00:00 Completed HIB 4 Dose Schedule 2003 00:00:00 Completed Pneumococcal 7 Conjugate, PCV7 (Prevnar7) 2003 00:00:00 Completed IPV 2003 00:00:00 Completed DTaP, Unspecified Formulation 2003 00:00:00 Completed [facility] Hep B, Adol or Pedi Dosage 2003 00:00:00 Completed [facility] HIB 4 Dose Schedule 2003 00:00:00 Completed [facility] Pneumococcal 7 Conjugate, PCV7 (Prevnar7) 2003 00:00:00 Completed [facility] IPV 2003 00:00:00 Completed [facility] DTaP, Unspecified Formulation 2003 00:00:00 Completed [facility] Hep B, Adol or Pedi Dosage 2003 00:00:00 Completed [facility] HIB 4 Dose Schedule 2003 00:00:00 Completed [facility] Pneumococcal 7 Conjugate, PCV7 (Prevnar7) 2003 00:00:00 Completed [facility] IPV 2003 00:00:00 Completed [facility] DTaP, Unspecified Formulation 2003 00:00:00 Completed [facility] Hep B, Adol or Pedi Dosage 2003 00:00:00 Completed [facility] HIB 4 Dose Schedule 2003 00:00:00 Completed [facility] Pneumococcal 7 Conjugate, PCV7 (Prevnar7) 2003 00:00:00 Completed [facility] IPV 2003 00:00:00 Completed [facility] Hep B, Adol or Pedi Dosage 2003 00:00:00 Completed Hep B, Adol or Pedi Dosage 2003 00:00:00 Completed [facility] Hep B, Adol or Pedi Dosage 2003 00:00:00 Completed [facility] Hep B, Adol or Pedi Dosage 2003 00:00:00 Completed [facility] DTaP, Unspecified Formulation Unknown Completed [facility] HEPATITIS A Unknown Completed [facility] Hep B, Adol or Pedi Dosage Unknown Completed [facility] Hib-HbOC Unknown Completed [facility] HIB 4 Dose Schedule Unknown Completed [facility] HPV9 Unknown Completed [facility] Meningococcal Polysaccharide (groups A, C, Y and W-135) conjugate vaccine (MCV4P) Unknown Completed [facility] MMR Unknown Completed [facility] Pneumococcal 7 Conjugate, PCV7 (Prevnar7) Unknown Completed [facility] IPV Unknown Completed [facility] Varicella (varivax)(chicken pox) Unknown Completed [facility] TDAP Unknown Completed [facility] DTaP, Unspecified Formulation Unknown Completed [facility] HEPATITIS A Unknown Completed [facility] Hep B, Adol or Pedi Dosage Unknown Completed [facility] Hib-HbOC Unknown Completed [facility] HIB 4 Dose Schedule Unknown Completed [facility] HPV9 Unknown Completed [facility] Meningococcal Polysaccharide (groups A, C, Y and W-135) conjugate vaccine (MCV4P) Unknown Completed [facility] MMR Unknown Completed [facility] Pneumococcal 7 Conjugate, PCV7 (Prevnar7) Unknown Completed [facility] IPV Unknown Completed [facility] Varicella (varivax)(chicken pox) Unknown Completed [facility] TDAP Unknown Completed [facility] DTaP, Unspecified Formulation Unknown Completed [facility] HEPATITIS A Unknown Completed [facility] Hep B, Adol or Pedi Dosage Unknown Completed [facility] Hib-HbOC Unknown Completed [facility] HIB 4 Dose Schedule Unknown Completed [facility] HPV9 Unknown Completed [facility] Meningococcal Polysaccharide (groups A, C, Y and W-135) conjugate vaccine (MCV4P) Unknown Completed [facility] MMR Unknown Completed [facility] Pneumococcal 7 Conjugate, PCV7 (Prevnar7) Unknown Completed [facility] IPV Unknown Completed [facility] Varicella (varivax)(chicken pox) Unknown Completed [facility] TDAP Unknown Completed [facility] DTaP, Unspecified Formulation Unknown Completed [facility] HEPATITIS A Unknown Completed [facility] Hep B, Adol or Pedi Dosage Unknown Completed [facility] Hib-HbOC Unknown Completed [facility] HIB 4 Dose Schedule Unknown Completed [facility] HPV9 Unknown Completed [facility] Meningococcal Polysaccharide (groups A, C, Y and W-135) conjugate vaccine (MCV4P) Unknown Completed [facility] MMR Unknown Completed [facility] Pneumococcal 7 Conjugate, PCV7 (Prevnar7) Unknown Completed [facility] IPV Unknown Completed [facility] Varicella (varivax)(chicken pox) Unknown Completed [facility] TDAP Unknown Completed [facility] DTaP, Unspecified Formulation Unknown Completed [facility] HEPATITIS A Unknown Completed [facility] Hep B, Adol or Pedi Dosage Unknown Completed [facility] Hib-HbOC Unknown Completed [facility] HIB 4 Dose Schedule Unknown Completed [facility] HPV9 Unknown Completed [facility] Meningococcal Polysaccharide (groups A, C, Y and W-135) conjugate vaccine (MCV4P) Unknown Completed [facility] MMR Unknown Completed [facility] Pneumococcal 7 Conjugate, PCV7 (Prevnar7) Unknown Completed [facility] IPV Unknown Completed [facility] Varicella (varivax)(chicken pox) Unknown Completed [facility] TDAP Unknown Completed [facility] Vital Signs Vital Name Observation Time Observation Value Comments S ource Systolic blood pressure 2024-05-29 21:17:00 135 mm[Hg] [facility] Diastolic blood pressure 2024-05-29 21:17:00 91 mm[Hg] [facility] Heart rate 2024-05-29 21:17:00 102 /min [facility] Body temperature 2024-05-29 21:17:00 36.89 [place] [facility] Respiratory rate 2024-05-29 21:17:00 16 /min [facility] Body height 2024-05-29 21:17:00 152.4 cm [facility] Body weight 2024-05-29 21:17:00 79.833 kg [facility] BMI 2024-05-29 21:17:00 34.37 kg/m2 [facility] Oxygen saturation in Arterial blood by Pulse oximetry 2024-05-29 21:17:00 100 /min [facility] Systolic blood pressure 2023-10-27 03:54:00 135 mm[Hg] [facility] Diastolic blood pressure 2023-10-27 03:54:00 103 mm[Hg] [facility] Heart rate 2023-10-27 03:54:00 95 /min [facility] Body temperature 2023-10-27 03:54:00 36.72 [place] [facility] Respiratory rate 2023-10-27 03:54:00 18 /min [facility] Body height 2023-10-27 03:54:00 152.4 cm [facility] Body weight 2023-10-27 03:54:00 70.761 kg [facility] BMI 2023-10-27 03:54:00 30.47 kg/m2 [facility] Oxygen saturation in Arterial blood by Pulse oximetry 2023-10-27 03:54:00 100 /min [facility] Systolic blood pressure 2023-09-21 04:15:00 120 mm[Hg] [facility] Diastolic blood pressure 2023-09-21 04:15:00 68 mm[Hg] [facility] Heart rate 2023-09-21 04:15:00 93 /min [facility] Body temperature 2023-09-21 04:15:00 36.89 [place] [facility] Respiratory rate 2023-09-21 04:15:00 16 /min [facility] Body height 2023-09-21 04:15:00 152.4 cm [facility] Body weight 2023-09-21 04:15:00 70.761 kg [facility] BMI 2023-09-21 04:15:00 30.47 kg/m2 [facility] Oxygen saturation in Arterial blood by Pulse oximetry 2023-09-21 04:15:00 100 /min [facility] Systolic blood pressure 2023-07-17 03:00:00 122 mm[Hg] [facility] Diastolic blood pressure 2023-07-17 03:00:00 86 mm[Hg] [facility] Heart rate 2023-07-17 03:00:00 73 /min [facility] Respiratory rate 2023-07-17 03:00:00 16 /min [facility] Oxygen saturation in Arterial blood by Pulse oximetry 2023-07-17 03:00:00 100 /min [facility] Body weight 2023-07-17 00:43:00 69.854 kg [facility] BMI 2023-07-17 00:43:00 30.08 kg/m2 [facility] Body temperature 2023-07-17 00:43:00 36.78 [place] [facility] Body height 2023-07-17 00:43:00 152.4 cm [facility] Systolic blood pressure 2023-05-17 19:58:00 112 mm[Hg] [facility] Diastolic blood pressure 2023-05-17 19:58:00 76 mm[Hg] [facility] Heart rate 2023-05-17 19:58:00 71 /min [facility] Body temperature 2023-05-17 19:58:00 36.61 [place] [facility] Respiratory rate 2023-05-17 19:58:00 16 /min [facility] Body height 2023-05-17 19:58:00 152.4 cm [facility] Body weight 2023-05-17 19:58:00 66.225 kg [facility] BMI 2023-05-17 19:58:00 28.51 kg/m2 [facility] Oxygen saturation in Arterial blood by Pulse oximetry 2023-05-17 19:58:00 98 /min [facility] Body temperature 2023-01-05 14:10:13 37.72 [place] [facility] Systolic blood pressure 2023-01-05 14:00:00 119 mm[Hg] [facility] Diastolic blood pressure 2023-01-05 14:00:00 79 mm[Hg] [facility] Heart rate 2023-01-05 14:00:00 89 /min [facility] Respiratory rate 2023-01-05 14:00:00 15 /min [facility] Oxygen saturation in Arterial blood by Pulse oximetry 2023-01-05 14:00:00 96 /min [facility] Body height 2023-01-05 13:02:00 152.4 cm [facility] Body weight 2023-01-05 13:02:00 72.576 kg [facility] BMI 2023-01-05 13:02:00 31.25 kg/m2 [facility] Systolic blood pressure 2022-12-27 16:46:00 105 mm[Hg] [facility] Diastolic blood pressure 2022-12-27 16:46:00 70 mm[Hg] [facility] Heart rate 2022-12-27 16:46:00 71 /min [facility] Body temperature 2022-12-27 16:46:00 36.78 [place] [facility] Respiratory rate 2022-12-27 16:46:00 18 /min [facility] Body height 2022-12-27 16:46:00 152.4 cm [facility] Body weight 2022-12-27 16:46:00 73.539 kg [facility] BMI 2022-12-27 16:46:00 31.66 kg/m2 [facility] Systolic blood pressure 2022-09-28 02:27:00 133 mm[Hg] [facility] Diastolic blood pressure 2022-09-28 02:27:00 91 mm[Hg] [facility] Heart rate 2022-09-28 02:27:00 94 /min [facility] Body temperature 2022-09-28 02:27:00 37.39 [place] [facility] Respiratory rate 2022-09-28 02:27:00 16 /min [facility] Body height 2022-09-28 02:27:00 152.4 cm [facility] Body weight 2022-09-28 02:27:00 68.13 kg [facility] BMI 2022-09-28 02:27:00 29.33 kg/m2 [facility] Oxygen saturation in Arterial blood by Pulse oximetry 2022-09-28 02:27:00 100 /min [facility] Systolic blood pressure 2022-09-25 03:45:00 124 mm[Hg] [facility] Diastolic blood pressure 2022-09-25 03:45:00 79 mm[Hg] [facility] Heart rate 2022-09-25 03:45:00 81 /min [facility] Body temperature 2022-09-25 03:45:00 36.89 [place] [facility] Respiratory rate 2022-09-25 03:45:00 15 /min [facility] Body height 2022-09-25 03:45:00 152.4 cm [facility] Body weight 2022-09-25 03:45:00 68.04 kg [facility] BMI 2022-09-25 03:45:00 29.29 kg/m2 [facility] Oxygen saturation in Arterial blood by Pulse oximetry 2022-09-25 03:45:00 100 /min [facility] Systolic blood pressure 2021-12-29 20:04:00 134 mm[Hg] [facility] Diastolic blood pressure 2021-12-29 20:04:00 86 mm[Hg] [facility] Heart rate 2021-12-29 20:04:00 76 /min [facility] Body temperature 2021-12-29 20:04:00 36.94 [place] [facility] Respiratory rate 2021-12-29 20:04:00 18 /min [facility] Body height 2021-12-29 20:04:00 152.4 cm [facility] Body weight 2021-12-29 20:04:00 68.856 kg [facility] BMI 2021-12-29 20:04:00 29.65 kg/m2 [facility] Body mass index (BMI) [Percentile] Per age and sex 2021-12-29 20:04:00 93.49 % [facility] Procedures Procedure Date / Time Performed Performing Clinician Source URINALYSIS 2024-05-29 21:20:00 [facility] POCT TEST 2024-05-29 21:20:00 Kristian Terrell [facility] POCT TEST 2023-10-27 04:27:00 Darion Nobles [facility] TEST, SERUM 2023-10-27 04:26:00 Lory Nobles [facility] COMP. METABOLIC PANEL (52699) 2023-10-27 04:26:00 Gerard Nobles [facility] CBC WITH DIFF 2023-10-27 04:26:00 Gerard Nobles [facility] URINALYSIS 2023-10-27 04:26:00 [facility] CONSENT/REFUSAL FOR DIAGNOSIS AND TREATMENT 2023-10-27 03:50:18 Doctor Unassigned, Sherando [facility] ASSIGNMENT OF BENEFITS 2023-09-28 16:03:04 Docto r Unassigned, Sherando [facility] NOTICE OF PRIVACY PRACTICES 2023-09-21 04:06:10 Doctor Unassigned, Sherando [facility] CONSENT/REFUSAL FOR DIAGNOSIS AND TREATMENT 2023-09-21 04:05:29 Doctor Unassigned, Sherando [facility] RAPID STREP SCREEN FOR GROUP A 2023-07-17 03:07:00 Roberto Griffith [facility] POCT TEST 2023-07-17 01:53:00 Marcelina Cardozo [facility] COMP. METABOLIC PANEL (48664) 2023-07-17 01:51:00 Sandi Cardozo [facility] CBC WITH DIFF 2023-07-17 01:51:00 Sandi Cardozo [facility] URINALYSIS 2023-07-17 01:51:00 Sandi Cardozo [facility] EBV-MONONUCLEOSIS SCREEN 2023-07-17 01:51:00 Roberto Griffith [facility] CONSENT/REFUSAL FOR DIAGNOSIS AND TREATMENT 2023-07-17 00:37:35 Doctor Unassigned, Sherando [facility] POCT TEST 2023-05-17 20:06:00 Farooq Davis [facility] POCT URINALYSIS 2023-05-17 20:00:00 Farooq Davis [facility] RAPID STREP SCREEN FOR GROUP A 2023-01-05 13:18:00 Roberto Griffith [facility] RAPID INFLUENZA A/B 2023-01-05 13:09:00 Aminah Griffith [facility] COVID-19 (ID NOW RAPID TESTING) 2023-01-05 13:09:00 Roberto Griffith [facility] THYROID STIMULATING HORMONE 2022-12-27 17:10:00 Joyce Lopez [facility] CBC WITH DIFF 2022-12-27 17:10:00 Joyce Lopez [facility] GLYCOSYLATED HEMOGLOBIN (A1C) 2022-12-27 17:10:00 Joyce Lopez [facility] RUBELLA SCREEN IGG 2022-12-27 17:10:00 Gretchen Lopez [facility] HCV ANTIBODY 2022-12-27 17:10:00 [facility] GC & CHLAMYDIA AMPLIFIED ASSAY 2022-12-27 17:10:00 Joyce Lopez [facility] HIV 1/2 AG-AB WITH REFLEX 2022-12-27 17:10:00 Joyce Lopez [facility] SYPHILIS IGG/IGM 2022-12-27 17:10:00 Joyce Lopez [facility] GARDASIL 9 (HPV 9V) VACCINE 2022-12-27 16:53:08 Joyce Lopez [facility] POCT TEST 2022-12-27 16:47:00 Danielle Lopez [facility] ASSIGNMENT OF BENEFITS 2022-12-27 15:53:31 Docto r Unassigned, Sherando [facility] CONSENT/REFUSAL FOR DIAGNOSIS AND TREATMENT 2022-09-28 02:20:10 Doctor Unassigned, Sherando [facility] POCT TEST 2022-09-25 04:35:00 Bandar Castillo [facility] NOTICE OF PRIVACY PRACTICES 2022-09-25 03:45:44 Doctor Unassigned, Sherando [facility] CONSENT/REFUSAL FOR DIAGNOSIS AND TREATMENT 2022-09-25 03:44:56 Doctor Unassigned, Sherando [facility] Encounters Start Date/Time End Date/Time Encounter Type Admission Type Attending Clinicians Care Facility Care Department Encounter ID Source 2021-06-26 08:58:39 Emergency [facility] [id number] [facility] 2021-06-24 18:43:46 Outpatient LES HUGGINS [facility] [id number] [facility] 2024-05-29 16:19:00 2024-05-29 17:53:00 Emergency X Kristian TERRELL K [facility] [id number] [facility] 2024-05-29 16:19:00 2024-05-29 17:53:00 Emergency Kristian Terrell [facility] 1.840.114 350.1.13.10 4.2.7.2.686 [id number] [facility] 2023-11-29 15:30:00 2023-11-29 15:30:00 Outpatient FELISHA ALAN YADY YADY [id number] Yady López 2023-10-26 21:57:00 2023-10-26 23:58:00 Emergency X GERARD NOBLES [facility] E[facility] [id number] [facility] 2023-10-26 21:57:00 2023-10-26 23:58:00 Emergency Giuliano [facility] 1.2840.114 350.1.13.10 4.2.7.2.686 [id number] [facility] 2023-10-16 15:53:57 2023-10-16 15:53:57 Outpatient [facility] [id number] Marquis Hart 2023-09-28 10:15:00 2023-09-28 10:15:00 Outpatient CATRACHITA PRATHER [facility] [id number] [facility] 2023-09-28 00:00:00 2023-09-28 00:00:00 Orders Only Doctor Unassigned, Sherando [facility] 1.0.114 350.1.13.10 4.2.7.2.686 [id number] [facility] 2023-09-20 22:18:00 2023-09-20 23:14:00 Emergency X ROBERTO GRIFFITH [facility] [id number] [facility] 2023-09-20 22:18:00 2023-09-20 23:14:00 Emergency Roberto Griffith [facility] 1.840.114 350.1.13.10 4.2.7.2.686 [id number] [facility] 2023-07-16 18:45:00 2023-07-16 22:54:00 Emergency X ROBERTO GRIFFITH [facility] [id number] [facility] 2023-07-16 18:45:00 2023-07-16 22:54:00 Emergency CasSandi simpson Roberto Griffith [facility] 1..840.114 350.1.13.10 4.2.7.2.686 [id number] [facility] 2023-07-03 14:00:00 2023-07-03 14:00:00 Outpatient R VIANEY GARCIA [facility] [id number] [facility] 2023-05-17 15:00:00 2023-05-17 15:24:56 Outpatient R FAROOQ DAVIS [facility] [id number] [facility] 2023-05-17 15:00:00 2023-05-17 15:20:00 Urgent Care Farooq Davis Unknown, Attending [facility] 1..840.114 350.1.13.10 4.2.7.2.686 [id number] [facility] 2023-03-27 13:30:00 2023-03-27 13:30:00 Outpatient R JOYCE LOPEZ [facility] [id number] [facility] 2023-03-13 00:00:00 2023-03-13 00:00:00 Telephone Joyce Lopez [facility] [employer] [facility] 1..840.114 350.1.13.10 4.2.7.2.686 [id number] [facility] 2023-01-05 08:03:00 2023-01-05 09:46:00 Emergency X ROBERTO GRIFFITH [facility] [id number] [facility] 2023-01-05 08:03:00 2023-01-05 09:46:00 Emergency Roberto Griffith [facility] 1.2840.114 350.1.13.10 4.2.7.2.686 [id number] [facility] 2022-12-27 11:00:00 2022-12-27 12:13:57 Outpatient R JOYCE LOPEZ [facility] [id number] [facility] 2022-12-27 11:00:00 2022-12-27 12:13:57 Office Visit Joyce Lopez [facility] [employer] [facility] 1.2840.114 350.1.13.10 4.2.7.2.686 [id number] [facility] 2022-12-27 00:00:00 2022-12-27 00:00:00 Orders Only Doctor Unassigned, Sherando [facility] 1.2840.114 350.1.13.10 4.2.7.2.686 [id number] [facility] 2022-09-27 20:33:00 2022-09-27 21:45:00 Emergency X ALEXIS CAMPOS [facility] [id number] [facility] 2022-09-27 20:33:00 2022-09-27 21:45:00 Emergency Alexis Campos S [facility] 1.2840.114 350.1.13.10 4.2.7.2.686 [id number] [facility] 2022-09-27 10:15:00 2022-09-27 10:15:00 Outpatient ANNABELLE WISE [facility] [id number] [facility] 2022-09-24 21:55:00 2022-09-24 23:00:00 Emergency X BANDAR CASTILLO [facility] [id number] [facility] 2022-09-24 21:55:00 2022-09-24 23:00:00 Emergency Bandar Castillo [facility] 1.2.840.114 350.1.13.10 4.2.7.2.686 [id number] [facility] 2022-01-06 09:56:00 2022-01-06 09:56:00 Outpatient CLARA KwonFacundo [facility] [id number] [facility] ER 2021-12-30 00:00:00 2021-12-30 00:00:00 Telephone Mayra Saavedra [facility] [employer] [employer] [facility] 1.2.840.114 350.1.13.10 4.2.7.2.686 [id number] [facility] 2021-12-29 15:15:00 2021-12-29 15:46:42 Outpatient R MAYRA SAAVEDRA [facility] [id number] [facility] 2021-12-29 15:15:00 2021-12-29 15:46:42 Office Visit Mayra Saavedra [facility] [employer] [facility] 1.2.840.114 350.1.13.10 4.2.7.2.686 [id number] [facility] 2021-12-29 00:00:00 2021-12-29 00:00:00 Orders Only Doctor Unassigned, Sherando [facility] 1..840.114 350.1.13.10 4.2.7.2.686 [id number] [facility] 2021-12-22 09:45:00 2021-12-22 09:45:00 Outpatient RENETTA JULIEN [facility] [id number] [facility] 2021-12-22 09:45:00 2021-12-22 09:45:00 Outpatient RENETTA JULIEN [facility] [id number] [facility] 2021-12-14 15:00:00 2021-12-14 15:00:00 Outpatient R VIANEY GARCIA [facility] [id number] [facility] 2021-12-08 08:53:50 2021-12-08 23:59:00 Outpatient RENETTA JULIEN [facility] [id number] [facility] 2021-12-08 08:45:00 2021-12-08 10:02:07 Outpatient Cecily JAYMIERENETTA [facility] [id number] [facility] 2021-12-08 08:45:00 2021-12-08 10:02:07 Outpatient Cecily JAYMIE RENETTA [facility] [id number] [facility] 2021-12-08 08:45:00 2021-12-08 09:00:00 Office Visit [facility]on [facility] 1.2.840.114 350.1.13.10 4.2.7.2.686 [id number] [facility] 2021-12-01 14:15:00 2021-12-01 14:15:00 Outpatient Cecily JAYMIE RENETTA [facility] [id number] [facility] 2021-12-01 14:15:00 2021-12-01 14:15:00 Outpatient Cecily JAYMIE RENETTA [facility] [id number] [facility] 2021-11-29 09:15:00 2021-11-29 09:30:00 Metal Slitter Visit 2, [facility] 1.2.840.114 350.1.13.10 4.2.7.2.686 [id number] [facility] 2021-11-29 09:15:00 2021-11-29 09:15:00 Outpatient ANNABELLE WISE [facility] [id number] [facility] 2021-11-29 09:15:00 2021-11-29 09:15:00 Outpatient DARRON WISECY [facility] [id number] [facility] 2021-11-29 08:30:00 2021-11-29 08:30:00 Office Visit Annabelle Jo [facility] 1.2.840.114 350.1.13.10 4.2.7.2.686 [id number] [facility] 2021-11-24 00:00:00 2021-11-24 00:00:00 Orders Only Doctor Unassigned, Sherando [facility] 1.2.840.114 350.1.13.10 4.2.7.2.686 [id number] [facility] 2021-11-17 15:00:00 2021-11-17 15:00:00 [facility] [id number] [facility] 2021-11-09 09:00:00 2021-11-09 09:00:00 Outpatient R ANNABELLE JO [facility] [id number] [facility] 2021-09-21 15:30:00 2021-09-21 15:41:13 Nurse Visit Nurse, [facility] Vianey Garcia [facility] 1.2.840.114 350.1.13.10 4.2.7.2.686 [id number] [facility] 2021-09-21 15:30:00 2021-09-21 15:30:00 Outpatient Cecily GARCIA [facility] [id number] [facility] 2021-09-13 15:30:00 2021-09-13 15:30:00 Outpatient Cecily GARCIA VIANEY [facility] [id number] [facility] 2021-08-03 15:30:00 2021-08-03 15:30:00 Outpatient R [facility] [id number] [facility] 2021-05-11 15:44:35 2021-05-11 16:44:44 Nurse Visit Nurse, [facility] Samanta Petty [facility] 1.84.114 350.1.13.10 4.2.7.2.686 [id number] [facility] 2021-05-11 08:00:00 2021-05-11 08:00:00 Outpatient R [facility] [id number] [facility] 2021-05-11 00:00:00 2021-05-11 00:00:00 Orders Only Doctor Unassigned, Sherando [facility] 1..114 350.1.13.10 4.2.7.2.686 [id number] [facility] 2021-05-10 08:00:00 2021-05-10 08:00:00 Outpatient R [facility] [id number] [facility] 2021-05-03 15:00:00 2021-05-03 15:00:00 Outpatient R [facility] [id number] [facility] 2021-04-30 00:00:00 2021-04-30 00:00:00 Nurse Triage Lucrecia Williamson [facility] 1..114 350.1.13.10 4.2.7.2.686 [id number] [facility] 2021-03-18 15:30:00 2021-03-18 15:30:00 Outpatient R [facility] [id number] [facility] 2021-03-16 14:30:00 2021-03-16 14:30:00 Outpatient R [facility] [id number] [facility] 2021-03-16 00:00:00 2021-03-16 00:00:00 Telephone AdVianey teague [facility] 1.84.114 350.1.13.10 4.2.7.2.686 [id number] [facility] 2021-02-25 10:15:00 2021-02-25 10:15:00 Outpatient RENETTA JULIEN [facility] [id number] [facility] 2021-02-17 15:00:00 2021-02-17 15:00:00 Outpatient RENETTA JULIEN [facility] [id number] [facility] 2021-02-11 10:00:00 2021-02-11 10:00:00 Outpatient RENETTA JULIEN [facility] [id number] [facility] 2020-12-15 14:23:49 2020-12-15 14:38:49 Metal Slitter Visit 2, [facility] Lab Adum, Vianey [facility] 1..840.114 350.1.13.10 4.2.7.2.686 [id number] [facility] 2020-12-15 13:51:57 2020-12-15 14:18:57 Nurse Visit Nurse, [facility] Adum, [facility] 1..840.114 350.1.13.10 4.2.7.2.686 [id number] [facility] 2020-12-15 14:00:00 2020-12-15 14:00:00 Outpatient R JABIERWOODROW [facility] [id number] [facility] 2020-12-06 13:30:00 2020-12-06 13:30:00 Outpatient R JASPREET [facility] [id number] [facility] 2020-11-20 17:26:00 2020-11-20 17:37:00 Emergency Belinda Hall [facility] 1..840.114 350.1.13.10 4.2.7.2.686 [id number] [facility] 2020-11-20 00:00:00 2020-11-20 00:00:00 Orders Only Doctor Unassigned, Sherando [facility] 1..840.114 350.1.13.10 4.2.7.2.686 [id number] [facility] 2020-11-16 00:00:00 2020-11-16 00:00:00 Case Management AdumVianey [facility] 1..840.114 350.1.13.10 4.2.7.2.686 [id number] [facility] 2020-11-09 13:35:56 2020-11-09 15:09:56 Office Visit Adwoodrow, Vianey Hernandez [facility] 1..840.114 350.1.13.10 4.2.7.2.686 [id number] [facility] 2020-11-09 13:30:00 2020-11-09 13:30:00 Outpatient R JASPREET [facility] [id number] [facility] 2020-11-08 15:45:00 2020-11-08 15:45:00 Outpatient R ANNABELLE JO [facility] [id number] [facility] 2020-11-05 15:00:00 2020-11-05 15:00:00 Outpatient R JASPREET [facility] [id number] [facility] 2020-11-04 14:30:00 2020-11-04 14:30:00 Outpatient R JASPREET [facility] [id number] [facility] 2020-11-02 00:00:00 2020-11-02 00:00:00 Telephone AdumVianey [facility] 1.2.840.114 350.1.13.10 4.2.7.2.686 [id number] [facility] 2020-09-23 00:00:00 2020-09-23 00:00:00 Orders Only Doctor Unassigned, Sherando [facility] 1.2.840.114 350.1.13.10 4.2.7.2.686 [id number] [facility] 2020-09-15 00:00:00 2020-09-15 00:00:00 Case Management Adum, Vianey Hernandez [facility] 1.2.840.114 350.1.13.10 4.2.7.2.686 [id number] [facility] 2020-09-10 00:00:00 2020-09-10 00:00:00 Case Management Adwoodrow, Vianey Hernandez [facility] 1.2.840.114 350.1.13.10 4.2.7.2.686 [id number] [facility] 2020-09-09 10:14:30 2020-09-09 10:29:30 Metal Slitter Visit 2, Adc Lab AdVianey teague [facility] 1.2.840.114 350.1.13.10 4.2.7.2.686 [id number] [facility] 2020-09-09 08:31:02 2020-09-09 09:58:53 Office Visit Vianey Garcia [facility] 1.2.840.114 350.1.13.10 4.2.7.2.686 [id number] [facility] 2020-09-09 09:00:00 2020-09-09 09:00:00 Outpatient R JABIERWOODROW VIANEY [facility] [id number] [facility] 2020-09-09 00:00:00 2020-09-09 00:00:00 Orders Only Doctor Unassigned, Sherando [facility] 1.2.840.114 350.1.13.10 4.2.7.2.686 [id number] [facility] 2020-06-15 00:00:00 2020-06-15 00:00:00 Orders Only Doctor Unassigned, Sherando [facility] 1.0.114 350.1.13.10 4.2.7.2.686 [id number] [facility] 2020-06-07 15:12:17 2020-06-07 15:27:17 Office Visit Renetta Coon [facility] 1.84.114 350.1.13.10 4.2.7.2.686 [id number] [facility] 2020-06-07 15:00:00 2020-06-07 15:00:00 Outpatient R RENETTA COON [facility] [id number] [facility] 2020-05-24 05:58:00 2020-05-24 09:24:00 Hospital Encounter Les Huggins [facility] 1..114 350.1.13.10 4.2.7.2.686 [id number] [facility] 2020-05-22 13:24:32 2020-05-22 13:44:32 Laboratory Only Lab, Adc Fam Pob Jasmina Medina [facility] 1.84.114 350.1.13.10 4.2.7.2.686 [id number] [facility] 2020-05-22 13:20:00 2020-05-22 13:20:00 Outpatient R NEDA PAGE [facility] [id number] [facility] 2020-05-21 11:00:00 2020-05-21 11:00:00 Outpatient PANKAJ MYERS [facility] [id number] [facility] 2020-05-17 00:00:00 2020-05-17 00:00:00 Prep For Surgery Les Huggins [facility] [place] [id number] 350.1.13.10 4.2.7.2.686 [id number] [facility] 2020-05-13 11:14:45 2020-05-13 11:39:37 Office Visit Renetta Coon Craig L [facility] yamliex [place] 1.2840.114 350.1.13.10 4.2.7.2.686 [id number] [facility] 2020-05-13 11:00:00 2020-05-13 11:00:00 Outpatient R LES HUGGINS [facility] [id number] [facility] 2020-05-13 00:00:00 2020-05-13 00:00:00 Letter (Out) Danielle Coonjim Obrien [facility] yamilex [place] 1.2840.114 350.1.13.10 4.2.7.2.686 [id number] [facility] 2020-05-13 00:00:00 2020-05-13 00:00:00 Letter (Out) Renetta Coon [facility] yamilex Cameron 1.2840.114 350.1.13.10 4.2.7.2.686 [id number] [facility] 2020-05-05 15:15:00 2020-05-05 23:59:00 Hospital Encounter Les Huggins [facility] 1.2840.114 350.1.13.10 4.2.7.2.686 [id number] [facility] 2020-05-05 00:00:00 2020-05-05 00:00:00 Outpatient R LES HUGGINS [facility] [id number] [facility] 2020-04-15 00:00:00 2020-04-15 00:00:00 Orders Only Doctor Unassigned, Sherando [facility] 1.2840.114 350.1.13.10 4.2.7.2.686 [id number] [facility] 2020-04-08 00:00:00 2020-04-08 00:00:00 Telephone Les Huggins [facility] yamilex Cameron 1.2.840.114 350.1.13.10 4.2.7.2.686 [id number] [facility] 2020-04-05 14:45:57 2020-04-05 15:00:57 Office Visit Coon Renetta Obrien [facility] yamilex Cameron 1.2.840.114 350.1.13.10 4.2.7.2.686 [id number] [facility] 2020-04-05 15:00:00 2020-04-05 15:00:00 Outpatient Cecily [facility] [id number] [facility] 2020-04-01 14:00:00 2020-04-01 14:00:00 Outpatient Cecily [facility] [id number] [facility] 2020 11:37:49 2020 13:13:00 Emergency Mariaa Rae [facility] 1.2.840.114 350.1.13.10 4.2.7.2.686 [id number] [facility] 2020 11:37:49 2020 13:13:00 Emergency X MARIAA RAE [facility] ERT [id number] [facility] Results Test Description Test Time Test Comments Results Result Co mments Source [facility] [id number] 04:54:53* Test Item Value Reference Range Interpretation Comme nts PREG SERUM (test code = 4242805407) Negative ZORAIDA (test code = ZORAIDA) Less than 10 IU/L. ?If low titer or ectopic is suspected, resubmit specimen in 48-72 hours. [facility] (19376)2023-10-27 04:49:57* Test Item Value Reference Range Interpretation Comme nts NA (test code = 4112466361) 139 mmol/L 135-145 K (test code = 9493536070) 4.0 mmol/L 3.5-5.0 CL (test code = 9800588976) 108 mmol/L 98-108 CO2 TOTAL (test code = 3474399120) 25 mmol/L 23-31 AGAP (test code = 5590866530) 6 2-16 BUN (test code = 0736875135) 14 mg/dL 7-23 GLUCOSE (test code = 0778415852) 97 mg/dL 70-110 CREATININE (test code = 2160-0) 0.56 mg/dL 0.50-1.04 TOTAL BILI (test code = 6503777142) 0.7 mg/dL 0.1-1.1 CALCIUM (test code = 1751582630) 8.8 mg/dL 8.6-10.6 T PROTEIN (test code = 9539551838) 8.4 g/dL 6.3-8.2 H ALBUMIN (test code = 3144171398) 4.1 g/dL 3.5-5.0 ALK PHOS (test code = 4858678795) 65 U/L 34-122 ALTv (test code = 1742-6) 21 U/L 5-35 AST(SGOT) (test code = 1394359750) 37 U/L 13-40 eGFR (test code = 48914-6) 134.2 mL/min/1.73m2 CKD-EPI eGFR (2020). Assuming creatinine has been stable day-to-day for at least three months, the eGFR indicates Category G1 (>= 90 mL/min/1.73 m2) Lab Interpretation (test code = 54515-8) Abnormal [facility] with [id number] 04:36:34* Test Item Value Reference Range Interpretation [...] 33.6 g/dL 31.6-35.1 RDW-SD (test code = 74456-9) 43.0 fL 39.0-49.9 RDW-CV (test code = 788-0) 13.5 % 12.0-15.5 PLT (test code = 777-3) 241 166-358 MPV (test code = 45509-7) 12.1 fL 9.5-12.9 NRBC/100 WBC (test code = 9436332580) 0.0 0.0-10.0 NRBC x10^3 (test code = 8730633397) See_Comment [Automated messa ge] The system which generated this result transmitted reference range: 10*3/?L. The reference range was not used to interpret this result as normal/abnormal. GRAN MAT (NEUT) % (test code = 770-8) 67.8 % IMM GRAN % (test code = 7824950520) 0.60 % LYMPH % (test code = 736-9) 21.2 % MONO % (test code = 5905-5) 8.9 % EOS % (test code = 713-8) 1.0 % BASO % (test code = 706-2) 0.5 % GRAN MAT x10^3(ANC) (test code = 7670722920) 8.58 10*3/uL 1.88-7.09 H IMM GRAN x10^3 (test code = 5475961413) 0.07 10*3/uL 0.00-0.06 H LYMPH x10^3 (test code = 731-0) 2.67 10*3/uL 1.32-3.29 MONO x10^3 (test code = 742-7) 1.12 10*3/uL 0.33-0.92 H EOS x10^3 (test code = 711-2) 0.12 10*3/uL 0.03-0.39 BASO x10^3 (test code = 704-7) 0.06 10*3/uL 0.01-0.07 Lab Interpretation (test code = 35911-6) [facility]normal [facility] [id number] 04:27:00* Test Item Value Reference Range Interpretation Comme nts POCT PREG (test code = 1605) Negative On board controls acceptable with C Line (test code = 3574) Yes POCT PREG LOT # (test code = 3575) [id number] POCT PREG TEST DATE ( test code = 3576) 10-01-2024 Lab Interpretation (test cod e = 88890-3) Normal [facility] (85648)2023-07-17 02:17:29* Test Item Value Reference Range Interpretation Comme nts NA (test code = 4771131312) 140 mmol/L 135-145 K (test code = 1882859778) 3.9 mmol/L 3.5-5.0 CL (test code = 2720921130) 103 mmol/L 98-108 CO2 TOTAL (test code = 0537352562) 29 mmol/L 23-31 AGAP (test code = 3940951052) 8 2-16 BUN (test code = 3406721387) 10 mg/dL 7-23 GLUCOSE (test code = 3101428682) 95 mg/dL 70-110 CREATININE (test code = 1655959223) 0.84 mg/dL 0.50-1.04 TOTAL BILI (test code = 5503474050) 0.3 mg/dL 0.1-1.1 CALCIUM (test code = 4824387822) 9.1 mg/dL 8.6-10.6 T PROTEIN (test code = 3328964034) 8.4 g/dL 6.3-8.2 H ALBUMIN (test code = 4071661062) 4.5 g/dL 3.5-5.0 ALK PHOS (test code = 6029740507) 80 U/L 34-122 ALTv (test code = 1742-6) 16 U/L 5-35 AST(SGOT) (test code = 0694652751) 22 U/L 13-40 eGFR (test code = 59263-4) 102.2 mL/min/1.73m2 CKD-EPI eGFR (2020). Assuming creatinine has been stable day-to-day for at least three months, the eGFR indicates Category G1 (>= 90 mL/min/1.73 m2) Lab Interpretation (test code = 00426-0) Abnormal [facility] WITH [id number] 02:15:48* Test Item Value Reference Range Interpretation [...] 33.3 g/dL 31.6-35.1 RDW-SD (test code = 57789-4) 42.6 fL 39.0-49.9 RDW-CV (test code = 788-0) 13.2 % 12.0-15.5 PLT (test code = 777-3) 277 See_Comment [Automated messa ge] The system which generated this result transmitted reference range: 166 - 358 10*3/?L. The reference range was not used to interpret this result as normal/abnormal. MPV (test code = 66021-7) 10.5 fL 9.5-12.9 NRBC/100 WBC (test code = 6552583277) 0.0 See_Comment [Automated [employer] ssage] The system which generated this result transmitted reference range: 0.0 - 10.0 /100 WBCs. The reference range was not used to interpret this result as normal/abnormal. NRBC x10^3 (test code = 1623490781) See_Comment [Automated messa ge] The system which generated this result transmitted reference range: 10*3/?L. The reference range was not used to interpret this result as normal/abnormal. GRAN MAT (NEUT) % (test code = 770-8) 60.3 % IMM GRAN % (test code = 3455048650) 0.30 % LYMPH % (test code = 736-9) 25.9 % MONO % (test code = 5905-5) 10.8 % EOS % (test code = 713-8) 2.0 % BASO % (test code = 706-2) 0.7 % GRAN MAT x10^3(ANC) (test code = 3028187309) 6.95 10*3/uL 1.88-7.09 IMM GRAN x10^3 (test code = 4951966874) 0.04 10*3/uL 0.00-0.06 LYMPH x10^3 (test code = 731-0) 2.99 10*3/uL 1.32-3.29 MONO x10^3 (test code = 742-7) 1.25 10*3/uL 0.33-0.92 H EOS x10^3 (test code = 711-2) 0.23 10*3/uL 0.03-0.39 BASO x10^3 (test code = 704-7) 0.08 10*3/uL 0.01-0.07 H Lab Interpretation (test code = 00010-4) Abnormal [facility] [id number] 01:53:00* Test Item Value Reference Range Interpretation Comme nts POCT PREG (test code = 1605) Negative On board controls acceptable with C Line (test code = 3574) Yes POCT PREG LOT # (test code = 3575) [id number] POCT PREG TEST DATE ( test code = 3576) 2024-11-29 Lab Interpretation (test cod e = 22111-0) Normal [facility] [id number] 20:06:00* Test Item Value Reference Range Interpretation Comme nts POCT PREG (test code = 1605) Negative On board controls acceptable with C Line (test code = 3574) Yes POCT PREG LOT # (test code = 3575) POCT PREG TEST DATE ( test code = 3576) [facility] W SPECIFIC [id number] 20:01:00* Test Item Value Reference Range Interpretation [...] U APPEAR (test code = 3267) cloudy [facility] SCREEN (ANGELIC) [id number] 19:07:18 * Test Item Value Reference Range Interpretation Comme [facility] Rubella screen IgG (test code = 4613837637) Positive Negative ZORAIDA (test code = ZORAIDA) Positive - Indicat es the patient was exposed to Rubella through infection or vaccination.Negative - Indicates the patient could be susceptible to Rubella infection.Equivocal - A second specimen should be sent. [facility] SCREEN (ANGELIC) [id number] 19:07:18 * Test Item Value Reference Range Interpretation Comme [facility] Rubella screen IgG (test code = 8082601278) Positive Negative ZORAIDA (test code = ZORAIDA) Positive - Indicat es the patient was exposed to Rubella through infection or vaccination.Negative - Indicates the patient could be susceptible to Rubella infection.Equivocal - A second specimen should be sent. [facility] - SYPHILIS IGG/[id number] 17:26:01* Test Item Value Reference Range Interpretation Comme [facility] Syphilis IgG/IgM (test code = 72378-1) Non-reactive Non-reactive ZORAIDA (test code = ZORAIDA) Non-reactive - No serologic evidence of T. pallidum infection. Cannot exclude incubating or early syphilis. Submit a second specimen in 2-4 weeks if syphilis is clinically suspected. Equivocal - Further testing to follow. Reactive - Further testing to follow. Lab Interpretation (test code = 28151-9) Normal [facility] ONLY - SYPHILIS IGG/[id number] 17:26:01* Test Item Value Reference Range Interpretation Comme nts Syphilis IgG/IgM (test code = 80310-1) Non-reactive Non-reactive ZORAIDA (test code = ZORAIDA) Non-reactive - No serologic evidence of T. pallidum infection. Cannot exclude incubating or early syphilis. Submit a second specimen in 2-4 weeks if syphilis is clinically suspected. Equivocal - Further testing to follow. Reactive - Further testing to follow. Lab Interpretation (test code = 02657-5) Normal [facility] (A1C)2022-12-28 15:57:54* Test Item Value Reference Range Interpretation Comme nts HGB A1C (test code = 4548-4) 5.5 % 4.0-5.7 ZORAIDA (test code = ZORAIDA) Reference RangesNormal: <5.7%Prediabetes: 5.7 - 6.4%Diabetes: > 6.5% Lab Interpretation (test code = 64052-4) Normal [facility]A1C)2022-12-28 15:57:54* Test Item Value Reference Range Interpretation Comme nts HGB A1C (test code = 4548-4) 5.5 % 4.0-5.7 ZORAIDA (test code = ZORAIDA) Reference RangesNormal: <5.7%Prediabetes: 5.7 - 6.4%Diabetes: > 6.5% Lab Interpretation (test code = 58026-9) Normal [facility] 1/2 AG-AB WITH [id number] 12:20:58* Test Item Value Reference Range Interpretation Comme nts HIV Semi-quantitative (test code = 16540-0) 0.07 Negative ZORAIDA (test code = ZORAIDA) Non-reactive for HIV-1 antigen and HIV-1/HIV-2 antibodies. ?No laboratory evidence of HIV infection. ?Repeat in 2-4 weeks if acute HIV infection is suspected. [facility] 1/2 AG-AB WITH [id number] 12:20:58* Test Item Value Reference Range Interpretation Comme nts HIV Semi-quantitative (test code = 90832-9) 0.07 Negative ZORAIDA (test code = ZORAIDA) Non-reactive for HIV-1 antigen and HIV-1/HIV-2 antibodies. ?No laboratory evidence of HIV infection. ?Repeat in 2-4 weeks if acute HIV infection is suspected. [facility] [id number] 09:03:31* Test Item Value Reference Range Interpretation Comme nts HCV Ab (test code = 50345-4) Negative HCV Semi-Quantitative (test code = 55189-8) 0.02 [facility] [id number] 09:03:31* Test Item Value Reference Range Interpretation Comme nts HCV Ab (test code = 12795-8) Negative HCV Semi-Quantitative (test code = 85728-5) 0.02 [facility] STIM[facility]ATING [id number] 08:28:04 * Test Item Value Reference Range Interpretation Comme nts TSH (test code = 8431401728) 0.99 See_Comment [Automated messa ge] The system which generated this result transmitted reference range: 0.45 - 4.70 mIU/L. The reference range was not used to interpret this result as normal/abnormal. Lab Interpretation (test code = 64812-1) Normal [facility] [id number] 08:28:04 * Test Item Value Reference Range Interpretation Comme nts TSH (test code = 3020388513) 0.99 See_Comment [Automated messa ge] The system which generated this result transmitted reference range: 0.45 - 4.70 mIU/L. The reference range was not used to interpret this result as normal/abnormal. Lab Interpretation (test code = 29859-4) Normal [facility] WITH [id number] 07:54:04* Test Item Value Reference Range Interpretation [...] 32.7 g/dL 31.6-35.1 RDW-SD (test code = 54336-1) 42.5 fL 39.0-49.9 RDW-CV (test code = 788-0) 13.0 % 12.0-15.5 PLT (test code = 777-3) 232 See_Comment [Automated messa ge] The system which generated this result transmitted reference range: 166 - 358 10*3/?L. The reference range was not used to interpret this result as normal/abnormal. MPV (test code = 42224-8) 11.5 fL 9.5-12.9 NRBC/100 WBC (test code = 7754393344) 0.0 See_Comment [Automated [employer] ssage] The system which generated this result transmitted reference range: 0.0 - 10.0 /100 WBCs. The reference range was not used to interpret this result as normal/abnormal. NRBC x10^3 (test code = 7898219112) See_Comment [Automated messa ge] The system which generated this result transmitted reference range: 10*3/?L. The reference range was not used to interpret this result as normal/abnormal. GRAN MAT (NEUT) % (test code = 770-8) 57.6 % IMM GRAN % (test code = 0482764960) 0.20 % LYMPH % (test code = 736-9) 29.9 % MONO % (test code = 5905-5) 8.6 % EOS % (test code = 713-8) 2.7 % BASO % (test code = 706-2) 1.0 % GRAN MAT x10^3(ANC) (test code = 5876774695) 5.43 10*3/uL 1.88-7.09 IMM GRAN x10^3 (test code = 4860846203) 0.00-0.06 LYMPH x10^3 (test code = 731-0) 2.81 10*3/uL 1.32-3.29 MONO x10^3 (test code = 742-7) 0.81 10*3/uL 0.33-0.92 EOS x10^3 (test code = 711-2) 0.25 10*3/uL 0.03-0.39 BASO x10^3 (test code = 704-7) 0.09 10*3/uL 0.01-0.07 H Lab Interpretation (test code = 27031-1) Abnormal [facility] WITH [id number] 07:54:04* Test Item Value Reference Range Interpretation Comme nts WBC (test code = 6690-2) 9.41 See_Comment [[facility]ated [facility] The system which generated this result transmitted reference range: 4.30 - 11.10 10*3/?L. The reference range was not used to interpret this result as normal/abnormal. RBC (test code = 789-8) 4.84 See_Comment [Automated [facility]] The system which generated this result [...] 32.7 g/dL 31.6-35.1 RDW-SD (test code = 05136-0) 42.5 fL 39.0-49.9 RDW-CV (test code = 788-0) 13.0 % 12.0-15.5 PLT (test code = 777-3) 232 See_Comment [Automated messa ge] The system which generated this result transmitted reference range: 166 - 358 10*3/?L. The reference range was not used to interpret this result as normal/abnormal. MPV (test code = 14602-2) 11.5 fL 9.5-12.9 NRBC/100 WBC (test code = 9670874619) 0.0 See_Comment [Automated [employer] ssage] The system which generated this result transmitted reference range: 0.0 - 10.0 /100 WBCs. The reference range was not used to interpret this result as normal/abnormal. NRBC x10^3 (test code = 2854405027) See_Comment [Automated messa ge] The system which generated this result transmitted reference range: 10*3/?L. The reference range was not used to interpret this result as normal/abnormal. GRAN MAT (NEUT) % (test code = 770-8) 57.6 % IMM GRAN % (test code = 7487436016) 0.20 % LYMPH % (test code = 736-9) 29.9 % MONO % (test code = 5905-5) 8.6 % EOS % (test code = 713-8) 2.7 % BASO % (test code = 706-2) 1.0 % GRAN MAT x10^3(ANC) (test code = 1774145299) 5.43 10*3/uL 1.88-7.09 IMM GRAN x10^3 (test code = 4034750801) 0.00-0.06 LYMPH x10^3 (test code = 731-0) 2.81 10*3/uL 1.32-3.29 MONO x10^3 (test code = 742-7) 0.81 10*3/uL 0.33-0.92 EOS x10^3 (test code = 711-2) 0.25 10*3/uL 0.03-0.39 BASO x10^3 (test code = 704-7) 0.09 10*3/uL 0.01-0.07 H Lab Interpretation (test code = 69898-6) Abnormal [facility] [id number] 16:47:00* Test Item Value Reference Range Interpretation Comme nts POCT PREG (test code = 1605) Negative On board controls acceptable with C Line (test code = 3574) Yes POCT PREG LOT # (test code = 3575) POCT PREG TEST DATE ( test code = 3576) [facility] [id number] 16:47:00* Test Item Value Reference Range Interpretation Comme nts POCT PREG (test code = 1605) Negative On board controls acceptable with C Line (test code = 3574) Yes POCT PREG LOT # (test code = 3575) POCT PREG TEST DATE ( test code = 3576) [facility] [id number] 04:35:00* Test Item Value Reference Range Interpretation Comme nts POCT PREG (test code = 1605) negative On board controls acceptable with C Line (test code = 3574) present POCT PREG LOT # (test code = 3575) [id number] POCT PREG TEST DATE ( test code = 3576) 2023-11-25 Lab Interpretation (test cod e = 69029-4) [facility] Test Item Value Reference Range Interpretation Comme nts SURGICAL (test code = SR) R UN DATE: 01/17/22 [facility] Lab PAGE 1 RUN TIME: 1221 Specimen Inquiry RUN USER: INTERFACE P ATIENT: KATRIN PEREZ LOC: [facility] U #: [id number] AGE/SX: 16/F ROOM: RE01/06/22REG DR: Facundo Kwon MD : 03 BED: DIS: STATUS: [facility] TLOC: SPEC #: [id number] RECD: 01/09/22 STATUS: BRANDIEHeidi [facility] #: [id number] KI: 01/06/22-[address] [facility] [address]: Facundo Kwon MD ENTERED: 01/09/22 SP TYPE: SURGICAL OTHR DR: DOES_NOT KNOW ORDERED: 06386/2, 21161, ANATOMIC SPEC COPIES TO: DOES_NOT KNOW Facundo Kwon MD [address] [place] [address] PROCEDURES: 89686 (01/09/22-715) 52308 (01/10/22-1630) TISSUES: A. DUODENUM BIOPSY B. STOMACH [...] ON NEXT PAGE R UN DATE: 01/17/22 [facility] PAGE 2 RUN TIME: 1221 Specimen Inquiry RUN USER: INTERFACE S TUSHAR #: [id number] PATIENT: KATRIN PEREZ #[id number] (Continued) GROSS DESCRIPTION (Continued) Technical component excluding immunohistochemistry is performed at [facility], [address] [place] [address] Technical component of all immunohistochemistry is performed at [facility], [address], [address], [place] [address] Immunohistochemistry: This test was developed and its [...] 01/17/22 1221 END OF REPORT UR HCG [id number] 12:02:00* Test Item Value Reference Range Interpretation Comme nts UR HCG QUAL (test code = HCGQLU) NEGATIVE This HCGQL test is NOT applicable for MALE patients.Check with nurse about probable order error.If Tumor Marker Test needed, nurse should order test "HCGTU"(Test #550.13122) Notes Date/Time Note Provider Source 2024-05-29 17:41:[address] Lynda Mejia RN [facility] 2024-05-29 17:38:00 Not in lobby to discharge [facility] 2024-05-29 16:16:33 Summary: Triage CC: Patient vomited this morning and is late on her period, patient is here for a test PMHx: none PSH:none MEDS:none LMP: 04/19/24 Tetanus: UTD Awake, alert, oriented, resp reg unlabored, skin warm, color appropriate for race, moves all ext without difficulty, amb with out assistance Appears in no distress Shu Singh RN [facility] 2023-10-26 23:53:53 Pt discharged home following ERP eval. Pt given all education and information regarding s/s of worsening condition, the importance of follow up and prescription use and purpose. Pt verbalized understanding. Alert and ambulatory to pov with family. CAR BUILDER Charlie Romero RN [facility] 2023-10-26 21:57:03 Pt given urine cup and placed in the lobby, pt advice to notify nurse with any other concerns or if symptoms worsen. [facility] 2023-10-26 21:53:04 Vaginal bleeding that started today with clots, pt states that she has used 4 pads. Pt c/o lower pelvic and lower back pain. Pt states LMP: 10/13/2023 CAR BUILDER Cassandra Nassar RN [facility] 2023-09-20 23:01:05 Pt given printed and verbal [...] with steady gait, in no apparent distress CAR BUILDER Sulema Leger RN [facility] 2023-09-20 22:13:39 Pt arrives ambulatory to ED reporting that her lymph nodes are swollen and has been since she was here last time. After review pt was seen here 07/16/2023. She also wanted to be checked for all STD's. Hall RN [facility] 2022-01-06 15:10:00 [facility] ([facility] Post Anesthesia Evaluation REPORT#:[id number] REPORT STATUS: Signed DATE:01/06/22 TIME: 151 PATIENT: KATRIN PEREZ UNIT #: [id number] ROOM/BED: : 03 AGE: 16 SEX: F [...] Ox 100 01/06 141 B/P 121/73 01/06 1413 O2 Delivery Room air 01/06 1413 Temp 36.7 01/06 1413 Pulse 87 01/06 141 Resp 16 01/06 1413 Cardiovascular: CV system stable, vital signs stable Respiratory/Airway: respiratory system stable, maintains without support Pain: adequately controlled Hydration: adequate, euvolemic Temp status: greater than 96.8F, normothermic Presence of N/V: no Anesthesia complications: no Other changes requiring f/u: none Conclusions: no apparent anes. issues, outpts eval prior DC home at [address] [facility] #:[id number] END OF REPORT [facility] 2022-01-06 13:42:00 [id number] [facility] PATIENT NAME: KATRIN PEREZ ADMIT DATE: 01/06/22 ACCOUNT NO: [id number] ROOM NO: AGE: 16 REPORT TYPE: ENDOSCOPY [...] 1:42 PM Procedure Code(s): --- Professional --- 36167, Esophagogastroduodenoscopy, flexible, transoral; with biopsy, single or multiple Diagnosis Code(s): --- Professional --- K29.80, Duodenitis without bleeding R10.13, Epigastric pain K30, Functional dyspepsia CPT copyright 2020 [employer]. All rights reserved. The codes documented in this report are preliminary and upon cooling machine operator review may be revised to meet current compliance requirements. Scope In: Scope Out: Provation {[id number]}. pdf ProVation FT PDF PATIENT NAME: KATRIN PEREZ at 1359 PATIENT NAME: KATRIN PEREZ [facility]
[2024-07-22 18:47] LABS: Specific Gravity 1.029 (1.005-1.030)
[2024-07-22 18:49] LABS: Specific Gravity 1.029 (1.005-1.030); Sqamous Epithelial <5 /HPF (None Seen); Transitional Epithelial <5 /HPF (None Seen); Urine Bacteria <20 /HPF (<20); Urine Bilirubin NEGATIVE (Negative); Urine Blood Negative (Negative); Urine Clarity Turbid (Clear); Urine Color Light-Yellow (Yellow); Urine Culture Reflex Order NOT NEEDED; Urine Glucose NEGATIVE (Negative); Urine Ketones NEGATIVE (Negative); Urine Microscopic Reflex YN ORDER UMIC; Urine Mucus 1+ /HPF (None Seen); Urine Nitrite NEGATIVE (Negative); Urine Protein TRACE (Negative); Urine Urobilinogen Normal (Normal); Urine WBC <5 /HPF (<5); Urine pH 6.5 (5.0-7.0)
--- NOTE | 2024-07-22 19:58 | ER ---
Nurse's Notes [facility] Name: Lizzie Chase Age: 19 yrs Sex: Female : 2005 Arrival Date: 07/22/2024 Time: 17:31 Bed 11 Private MD: Diagnosis: Candidiasis of vulva and vagina;Trichomoniasis, unspecified Presentation: 07/22 17:56 Chief complaint: Patient states: Vaginal itching and discharge onset 2 days ago. Pt cm10 reports dysuria. Coronavirus screen: Client denies travel out of the [place] in the last 14 days. Ebola Screen: Patient denies travel to an Ebola-affected area in the 21 days before illness onset. No symptoms or risks identified at this time. Initial Sepsis Screen: Does the patient meet any 2 criteria? No. Patient's initial sepsis screen is negative. Does the patient have a suspected source of infection? No. Patient's initial sepsis screen is negative. Risk Assessment: Do you want to hurt yourself or someone else? Patient reports no desire to harm self or others. Onset of symptoms was July 20, 2024. 17:56 Method Of Arrival: Ambulatory cm10 17:56 Acuity: NACHO 4 cm10 Triage Assessment: 17:58 General: Appears in no apparent distress. comfortable, Behavior is calm, cooperative. cm10 Neuro: No deficits noted. Level of Consciousness is awake, alert, obeys commands, Oriented to person, place, time, situation, Appropriate for age. Respiratory: No deficits noted. Airway is patent Respiratory effort is even, unlabored, Respiratory pattern is regular, symmetrical. : Reports discharge, from vagina that is urinary frequency, vaginal itching. Historical: - Allergies: 20:18 No Known Allergies; ha1 - Immunization history:: Adult Immunizations up to date. - Infectious Disease History:: Denies. - Social history:: Smoking status: Patient denies any tobacco usage or history of. Screenin:15 [facility] ED Fall Risk Assessment (Adult) History of falling in the last 3 months, ha1 including since admission No falls in past 3 months (0 pts) Confusion or Disorientation No (0 pts) Intoxicated or Sedated No (0 pts) Impaired Gait No (0 pts) Mobility Assist Device Used No (0 pt) Altered Elimination No (0 pt) Score/Fall Risk Level 0 - 2 = Low Risk Oriented to surroundings, Maintained a safe environment, Hourly rounding (assess needs \T\ fall precautionary measures) done. Abuse screen: Denies threats or abuse. Denies injuries from another. Nutritional screening: No deficits noted. Tuberculosis screening: No symptoms or risk factors identified. Assessment: 20:14 Reassessment: Patient and/or family updated on plan of care and expected duration. Pain ha1 level reassessed. Patient is alert, oriented x 3, equal unlabored respirations, skin warm/dry/pink. Vital Signs: 17:56 BP 124 / 78; Pulse 84; Resp 16; Temp 98.2; Pulse Ox 99% on R/A; Weight 81.65 kg; Height cm10 5 ft. 0 in. ; Pain 7/10; 20:14 BP 122 / 75; Pulse 81; Resp 17 S; Pulse Ox 98% on R/A; ha1 17:56 Body Mass Index 35.15 (81.65 kg, 152.4 cm) cm10 17:56 Pain Scale: Adult cm10 ED Course: 17:35 Patient arrived in ED. ra3 17:36 [facility] Corbin [facility] kb 17:36 Samuel Stewart MD is Attending Physician. kb 17:58 Triage completed. cm10 17:58 Arm band placed on left wrist. Patient placed in an exam room, on a stretcher. cm10 19:00 Patient has correct armband on for positive identification. Bed in low position. Call ha1 light in reach. Side rails up X 1. 20:16 No provider procedures requiring assistance completed. Patient did not have IV access ha1 during this emergency room visit. 20:17 Provided Education on: follow up with OB, and medication administration . ha1 Administered Medications: 20:00 Drug: Fluconazole PO 100 mg PO once Route: PO; ha1 20:14 Follow up: Response: No adverse reaction ha1 20:00 Drug: metroNIDAZOLE PO 500 mg PO once Route: PO; ha1 20:14 Follow up: Response: No adverse reaction ha1 Medication: 20:18 VIS not applicable for this client. ha1 Outcome: 19:58 Discharge ordered by . kb 20:16 Discharged to home ambulatory, ha1 20:16 Condition: stable 20:16 Discharge instructions given to patient, Instructed on discharge instructions, follow up and referral plans. medication usage, Demonstrated understanding of instructions, follow-up care, medications, Prescriptions given X 2, 20:18 Patient left the ED. ha1 Signatures: Preethi Corbin, JUDY DORAN-Fany Turner RN RN ha1 Lavern Brumfield RN RN cm10 Gabriela Bloom 3
--- NOTE | 2024-07-22 19:59 | EDPHYS ---
Physician Documentation [facility] Name: Lizzie Chase Age: 19 yrs Sex: Female : 2005 Arrival Date: 07/22/2024 Time: 17:31 Bed 11 Private MD: ED Physician Samuel Stewart HPI: 07/22 17:53 This 19 yrs old Female presents to ER via Unassigned with complaints of kb Vaginal Discharge - Itching. 17:53 Pt is a 19 year old female who presents for vaginal discharge ("looks like cottage kb cheese") and itching that started 2 days ago. Reports dysuria. Denies fever. . Historical: - Allergies: 20:18 No Known Allergies; ha1 - Immunization history:: Adult Immunizations up to date. - Infectious Disease History:: Denies. - Social history:: Smoking status: Patient denies any tobacco usage or history of. ROS: 17:53 Constitutional: As per HPI kb Exam: 17:53 Constitutional: This is a well developed, well nourished patient who is awake, alert, kb and in no acute distress. Head/Face: Normocephalic, atraumatic. ENT: Moist Mucous membranes Cardiovascular: Regular rate Respiratory: Respirations even and unlabored. No increased work of breathing. Talking in full sentences Abdomen/GI: Soft, non-tender. No distention Skin: Warm, dry with normal turgor. Normal color. MS/ Extremity: Pulses equal, no cyanosis. Neurovascular intact. Full, normal range of motion. Neuro: Awake and alert, GCS 15, oriented to person, place, time, and situation. Vital Signs: 17:56 BP 124 / 78; Pulse 84; Resp 16; Temp 98.2; Pulse Ox 99% on R/A; Weight 81.65 kg; Height cm10 5 ft. 0 in. ; Pain 7/10; 20:14 BP 122 / 75; Pulse 81; Resp 17 S; Pulse Ox 98% on R/A; ha1 17:56 Body Mass Index 35.15 (81.65 kg, 152.4 cm) cm10 17:56 Pain Scale: Adult cm10 MDM: 17:36 Medical Screening Exam initiated kb 19:57 Differential diagnosis: urinary tract infection, vaginosis, STI, yeast. Data reviewed: kb vital signs, nurses notes. Counseling: I had a detailed discussion with the patient and/or guardian regarding the historical points, exam findings, and any diagnostic results supporting the discharge/admit diagnosis, lab results, the need for outpatient follow up, an OB/Gyne specialist, to return to the emergency department if symptoms worsen or persist or if there are any questions or concerns that arise at home. 07/22 17:37 Order name: Test, Urine; Complete Time: 18:49 kb 07/22 17:37 Order name: Urinalysis w/ reflexes; Complete Time: 18:50 kb 07/22 17:37 Order name: Wet Prep; Complete Time: 19:25 kb 07/22 18:46 Order name: GC (Hi/Chl) Probe URINE EDMS Administered Medications: 20:00 Drug: Fluconazole PO 100 mg PO once Route: PO; ha1 20:14 Follow up: Response: No adverse reaction ha1 20:00 Drug: metroNIDAZOLE PO 500 mg PO once Route: PO; ha1 20:14 Follow up: Response: No adverse reaction ha1 Disposition Summary: 07/22/24 19:58 Discharge Ordered Notes: Location: Home kb Condition: Stable kb Diagnosis - Candidiasis of vulva and vagina kb - Trichomoniasis, unspecified kb Followup: kb - With: Emergency Department - When: As needed - Reason: Worsening of condition Followup: kb - With: Private Physician - When: 2 - 3 days - Reason: Recheck today's complaints, Continuance of care, Re-evaluation by your physician Discharge Instructions: - Discharge Summary Sheet kb - Trichomoniasis kb - Vaginal Yeast Infection, Adult kb Forms: - Medication Reconciliation Form kb - Antibiotic Education kb - Prescription Opioid Use kb - Patient Portal Instructions kb - Leadership Thank You Letter kb Prescriptions: - Diflucan 150 mg Oral Tablet - take 1 tablet ORAL route one time for 1 day; 1 tablet; Refills: 0, Product kb Selection Permitted - Flagyl 500 mg Oral Tablet - take 1 tablet ORAL route every 12 hours for 7 days; 14 tablet; Refills: 0, kb Product Selection Permitted Signatures: Dispatcher [employer] EDPreethi Mijares, Fany Vazquez, RN RN ha1 Corrections: (The following items were deleted from the chart) 17:37 17:37 Test, Urine+UC.LAB.BRZ ordered. EDMS EDMS 17:37 17:37 Urinalysis+U.LAB.BRZ ordered. EDMS EDMS 17:37 17:37 Wet Prep+BA.LAB.BRZ ordered. EDMS EDMS 18:46 17:37 GC (Hi/Chl) Probe VAGINAL+R.LAB.BRZ (Do not order if pt is under 13, order EDMS Culture instead) ordered. EDMS
[2024-07-22] MEDS ORDERED: FLUCONAZOLE 100 MG TAB ONE (20:09)
[2024-07-22] MEDS ORDERED: metroNIDAZOLE 500 MG TABLET ONE (20:09)
[2024-07-23 01:31] VITALS: TEMP 98.2
[2024-07-23 01:32] VITALS: BP 122/75; O2SAT 98
[2024-07-26 13:31] LABS: C.trachomatis RNA,TMA Not Detected (Not Detected); N.gonorrhoeae RNA,TMA Not Detected (Not Detected)
== END 2024-07-22 20:18 | disposition home or self-care (01) ==
LOC: ER 17:31
DX: B37.31 Acute candidiasis of vulva and vagina (principal); A59.9 Trichomoniasis, unspecified
CPT/HCPCS: 81001; 81025; 87210; 87490; 87590; 99283

== ENCOUNTER 2024-08-08 01:38 | Emergency (ER) | payer OTHER ==
--- OUTSIDE RECORDS SUMMARY | 2024-08-08 01:42 | XMS REPORT | Continuity of Care Document ---
Author Name Unknown Address [address] [facility] [address] [place] [address] [facility] thconnect Address [address] [facility]. [address] [place] [address] Care Team Providers Care Insemination Worker Name Role Phone LIDIA PHELAN Primary Care Physician Vannesa vailaLES Trammell Attending Clinician UnavailPHAN Charlton Attending Clinician Unavailable Kristian TERRELL Attending Clinician Unavailable Kristian TERRELL Attending Clinician Unavailable Kristian Denney Attending Clinician [phone] ALAN BAEZA Attending Clinician Unavailable GERARD NOBLES Attending Clinician Unavailable GERARD NOBLES Attending Clinician Unavailable CATRACHITA NGUYEN Attending Clinician Unavail able Doctor Unassigned, [place] Attending Clinician U ROBERTO Alegria Attending Clinician Unavailable Roberto Griffith MD Attending Clinician [phone] Sandi Cardozo NP Attending Clinician [phone] VIANEY GARCIA Attending Clinician Unavailable FAROOQ DAVIS Attending Clinician Unavailable Farooq Barnett Attending Clinician [phone] Unknown, Attending Attending Clinician Unavailab JOYCE Kumar Attending Clinician UnavailJoyce Fuentes CNM Attending Clinician [phone] WENDY JANE Attending Clinician UnavailWENDY Crane Attending Clinician UnavailAELXIS Shore Attending Clinician Unavailable Alexis Odell S Attending Clinician [phone] ANNABELLE JO Attending Clinician Unavailable BANDAR CASTILLO Attending Clinician Unavailable Bandar Castillo MD Attending Clinician [phone] Facundo Kwon Attending Clinician Unavailable Mayra Pandey Attending Clinician + [phone] MAYRA SAAVEDRA Attending Clinician Unavailab RENETTA Lam Attending Clinician Unavailable Renetta Clark S Attending Clinician [phone] , [facility] Attending Clinician Unavailable Annabelle Jo PA-C Attending Clinician [phone] Nurse, [facility] Attending Clinician Un available Radha MORENO, Vianey Hernandez Attending Clinician [phone] Jovanny MORENO, Samanta Groves Attending Clinician [phone] Teri RN, Lucrecia M Attending Clinician Unavailable Belinda Hall DO Attending Clinician [phone] Les Huggins MD Attending Clinician [phone] Lab, [facility] Fam Pob I Attending Clinician UnavailPage Gifford Attending Clinician [phone] PAGE RED Attending Clinician Unavailable PANKAJ REESE Attending Clinician UnavailMariaa Mccormack NP Attending Clinician [phone] MARIAA RAE Attending Clinician Unavailable LES HUGGINS Admitting Clinician UnavailSANDI Vaughan Admitting Clinician Unavailable KNOW, DOES_NOT Admitting Clinician Unavailable Les Huggins MD Admitting Clinician [phone] BELINDA HALL Admitting Clinician Unavailab pope Payers Payer Name Policy Type Policy Number Effective Date Expirati on Date Source [facility] [id number] 00:00:00 [employer] [id number] 2023 00:00:00 [facility] [place] [facility] [id number] 00:00:00 [facility] SHAYLA PANIAGUA COPAY FOCUS 9 [id number] 2023 00:00:00 Problems Condition Name Condition Details Condition Category Status Onset Date Resolution Date Last Treatment Date Treating Clinician Comments Source Obesity (BMI 30-39.9) Obesity (BMI 30-39.9) Disease Active 12-30 00:00: 00 [facility] BMI 29.0-29.9, adult BMI 29.0-29.9, adult Disease Active 12-29 00:00: 00 [facility] Menorrhagi a with irregular cycle Menorrhagi a with irregular cycle Disease Active 11-09 00:00: 00 [facility] Encounter for other general counseling or advice on contracept ion Encounter for other general counseling or advice on contracept ion Disease Resolve d 5- 00:00: 00 2022-12-30 00:00:00 2022-12-30 11:00:39 [facility] BMI 29.0-29.9, adult BMI 29.0-29.9, adult Disease Resolve d 5-05 00:00: 00 2022-12-30 00:00:00 2022-12-30 11:00:33 [facility] Vitamin D deficiency Vitamin D deficiency Disease Resolve d -16 00:00: 00 2022-12-30 00:00:00 2022-12-30 11:00:56 [facility] Depo-Prove ra contracept kmaran status Depo-Prove ra contracept kamran status Disease Resolve d 3-16 00:00: 00 2022-12-30 00:00:00 2022-12-30 11:00:37 [facility] Acute medial meniscus tear, left, subsequent encounter Acute medial meniscus tear, left, subsequent encounter Disease Resolve d 9-22 00:00: 00 2022-12-30 00:00:00 2022-12-30 11:00:54 Overview: Formattin g of this note might be different from the original. Added automatic ally from request for surgery [id number] [facility] Allergies, Adverse Reactions, Alerts Allergy Name Allergy Type Status Severity Reaction(s) Onset Date Inactive Date Treating Clinician Comments Source No Known Allergie s DA Active U 01-06 00:00: 00 [facility] NO KNOWN ALLERGIE S Drug Class Active [facility] Social History Social Habit Start Date Stop Date Quantity Comments Source [facility] SDOH Alcohol Comment [facility] Alcoholic beverage intake 2023-10-26 00:00:00 2023-10-26 00:00:00 Lifetime non-drinker (finding) [facility] Alcohol intake 2023-10-26 00:00:00 2023-10-26 00:00:00 Lifetime non-drinker (finding) [facility] Exposure to SARS-CoV-2 (event) 2022-12-26 00:00:00 2023-01-05 08:00:00 Not sure [facility] Tobacco use and exposure 2022-12-27 00:00:00 2022-12-27 00:00:00 Smokeless tobacco non-user [facility] History of Social function 2022-12-27 00:00:00 2022-12-27 00:00:00 [facility] History SDOH Alcohol Frequency 2020-04-05 00:00:00 2020-04-05 00:00:00 1 [facility] History SDOH Alcohol Std Drinks 2020-04-05 00:00:00 2020-04-05 00:00:00 99 [facility] History SDOH Alcohol Binge 2020-04-05 00:00:00 2020-04-05 00:00:00 1 [facility] Sex assigned at 2003 00:00:00 2003 00:00:00 [facility] Smoking Status Start Date Stop Date Source Never smoked tobacco [facility] Medications Ordered Medication Name Filled Medication Name Start Date Stop Date Current Medication? Ordering Clinician Indication Dosage Frequency Signature (SIG) Comments Components Source cefdinir 300 mg capsule 2023-08 00:00: 00 06-09 04:59 :00 Yes [id number] 300mg Take 1 capsule by mouth every 12 (twelve) hours for 10 days. [facility] ketorolac (TORADOL) injection 30 mg 10-26 06:00: 00 10-26 05:23 :00 No 30mg 30 mg, Slow IV Push, ONCE, 1 dose, On Sun10/27/23 at 0000, Routine [facility] cefTRIAXone (ROCEPHIN) 1,000 mg in NaCl 0.9% (NS) 100 mL MINI-BAG 10-26 05:15: 00 10-26 05:52 :00 No 1000mg 1,000 mg, IV Piggyback, ONCE, 1 dose, On Sun10/26/23 at 2315, Administer over 30 Minutes, 100 mL
Reas on for Anti-Infec tive: Documented Infection< br>Documen christiano Infection Site: Urine
D uration of Therapy: Other (see Comments) [facility] cefdinir 300 mg capsule 10-25 00:00: 00 11-02 05:59 :00 No [id number] 300mg Take 1 capsule by mouth in the morning and 1 capsule in the evening. Do all this for 7 days. [facility] methylPREDN ISolone 4 mg tablets 09-20 00:00: 00 Yes [id number] Take by mouth SEE-INSTRU CTIONS. follow package directions [facility] amoxicillin -clavulanat e 875-125 mg per tablet 09-20 00:00: 00 Yes [id number] 1{tbl} Take 1 tablet by mouth every 12 (twelve) hours. [facility] iopamidol (ISOVUE 370-500 mL) injection 100 mL 2022-08 03:30: 00 07-17 03:30 :00 No [id number] 100mL 100 mL, Intravenou s, ONCE, 1 dose, On 07/16/23 at 2130, Routine [facility] methylPREDN ISolone 4 mg tablets 2022-08 00:00: 00 Yes [id number] Take by mouth SEE-INSTRU CTIONS. follow package directions [facility] clindamycin 300 mg capsule 2022-08 00:00: 00 07-27 05:59 :00 No [id number] 300mg Take 1 capsule by mouth 4 (four) times daily for 10 days. [facility] cefdinir 300 mg capsule 05-17 00:00: 00 05-28 04:59 :00 No [id number] 600mg Take 2 capsules by mouth in the morning for 10 days. [facility] acetaminoph en (TYLENOL) tablet 650 mg 01-05 13:15: 00 01-05 13:14 :00 No 650mg 650 mg, Oral, ONCE, 1 dose, On Sun01/05/23 at 0815, ALLI [facility] amoxicillin 500 mg capsule 01-05 00:00: 00 Yes [id number] 500mg Take 1 capsule by mouth in the morning and 1 capsule at noon and 1 capsule in the evening. [facility] ondansetron 4 mg disintegrat ing tablet 01-05 00:00: 00 Yes [id number] 4mg Take 1 tablet by mouth every 4 (four) hours as needed for Nausea and Vomiting (N/V). [facility] naproxen 500 mg tablet 01-05 00:00: 00 01-16 04:59 :00 No [id number] 500mg Take 1 tablet by mouth in the morning and 1 tablet in the evening. Take with meals. Do all this for 10 days. [facility] norethindro sobiaestrad ioL-iron (MICROGESTI N FE) 1.5 mg-30 mcg (21)/75 mg (7) per tablet 12-27 00:00: 00 Yes [id number] 1{tbl} Take 1 tablet by mouth in the morning. [facility] naproxen (NAPROSYN) 500 mg tablet 09-27 00:00: 00 12-27 00:00 :00 No [id number] 500mg Take 1 tablet by mouth in the morning and 1 tablet in the evening. Take with meals. [facility] ibuprofen (IBU) tablet 800 mg 09-25 04:30: 00 09-25 04:33 :00 No 800mg 800 mg, Oral, ONCE, 1 dose, On 09/24/22 at 2230, ALLI [facility] No known medications 12-29 16:08: 37 No [facility] pantoprazol e 40 mg EC tablet 4-11 00:00: 00 12-29 00:00 :00 No 40mg Take 40 mg by mouth daily. [facility] metroNIDAZO LE 500 mg tablet 11-16 00:00: 00 12-29 00:00 :00 No [id number] 500mg Take 1 tablet by mouth every 12 (twelve) hours. [facility] ergocalcife rol, vitamin d2, 1,250 mcg (50,000 unit) capsule 15 00:00: 00 12-29 00:00 :00 No [id number] Take 1 capsule by mouth weekly. [facility] ranitidine (ZANTAC) 150 mg tablet 10-07 00:00: 00 12-29 00:00 :00 No 150mg Take 1 tablet by mouth 2 (two) times daily. Follow up with your MD for further evaluation and treatment. [facility] Immunizations Ordered Immunization Name Filled Immunization Name Date Status Comments Source [facility] 2022-12-27 00:00:00 Completed HPV9 2022-12-27 00:00:00 Completed [facility] HPV9 2022-12-27 00:00:00 Completed [facility] HPV9 2022-12-27 00:00:00 Completed [facility] Meningococcal Polysaccharide (groups A, C, Y and W-135) conjugate vaccine (MCV4P) 2020-03-30 00:00:00 Completed Meningococcal Polysaccharide (groups A, C, Y and W-135) conjugate vaccine (MCV4P) 2020-03-30 00:00:00 Completed [facility] Meningococcal Polysaccharide (groups A, C, Y and W-135) conjugate vaccine (MCV4P) 2020-03-30 00:00:00 Completed [facility] Meningococcal Polysaccharide (groups A, C, Y and W-135) conjugate vaccine (MCV4P) 2020-03-30 00:00:00 Completed [facility] HPV9 2016-04-17 00:00:00 Completed Meningococcal Polysaccharide (groups A, C, Y and W-135) conjugate vaccine (MCV4P) 2016-04-17 00:00:00 Completed TDAP 2016-04-17 00:00:00 Completed HPV9 2016-04-17 00:00:00 Completed [facility] Meningococcal Polysaccharide (groups A, C, Y and W-135) conjugate vaccine (MCV4P) 2016-04-17 00:00:00 Completed [facility] TDAP 2016-04-17 00:00:00 Completed [facility] HPV9 2016-04-17 00:00:00 Completed [facility] Meningococcal Polysaccharide (groups A, C, Y and W-135) conjugate vaccine (MCV4P) 2016-04-17 00:00:00 Completed [facility] TDAP 2016-04-17 00:00:00 Completed [facility] HPV9 2016-04-17 00:00:00 Completed [facility] Meningococcal Polysaccharide (groups A, C, Y and W-135) conjugate vaccine (MCV4P) 2016-04-17 00:00:00 Completed [facility] TDAP 2016-04-17 00:00:00 Completed [facility] HEPATITIS A 2009-06-30 00:00:00 Completed Varicella (varivax)(chicken pox) 2009-06-30 00:00:00 Completed HEPATITIS A 2009-06-30 00:00:00 Completed [facility] Varicella (varivax)(chicken pox) 2009-06-30 00:00:00 Completed [facility] HEPATITIS A 2009-06-30 00:00:00 Completed [facility] Varicella (varivax)(chicken pox) 2009-06-30 00:00:00 Completed [facility] HEPATITIS A 2009-06-30 00:00:00 Completed [facility] Varicella (varivax)(chicken pox) 2009-06-30 00:00:00 Completed [facility] DTaP, Unspecified Formulation 2007-06-10 00:00:00 Completed HEPATITIS A 2007-06-10 00:00:00 Completed Hib-HbOC 2007-06-10 00:00:00 Completed MMR 2007-06-10 00:00:00 Completed Pneumococcal 7 Conjugate, PCV7 (Prevnar7) 2007-06-10 00:00:00 Completed IPV 2007-06-10 00:00:00 Completed DTaP, Unspecified Formulation 2007-06-10 00:00:00 Completed [facility] HEPATITIS A 2007-06-10 00:00:00 Completed [facility] Hib-HbOC 2007-06-10 00:00:00 Completed [facility] MMR 2007-06-10 00:00:00 Completed [facility] Pneumococcal 7 Conjugate, PCV7 (Prevnar7) 2007-06-10 00:00:00 Completed [facility] IPV 2007-06-10 00:00:00 Completed [facility] DTaP, Unspecified Formulation 2007-06-10 00:00:00 Completed [facility] HEPATITIS A 2007-06-10 00:00:00 Completed [facility] Hib-HbOC 2007-06-10 00:00:00 Completed [facility] MMR 2007-06-10 00:00:00 Completed [facility] Pneumococcal 7 Conjugate, PCV7 (Prevnar7) 2007-06-10 00:00:00 Completed [facility] IPV 2007-06-10 00:00:00 Completed [facility] DTaP, Unspecified Formulation 2007-06-10 00:00:00 Completed [facility] HEPATITIS A 2007-06-10 00:00:00 Completed [facility] Hib-HbOC 2007-06-10 00:00:00 Completed [facility] MMR 2007-06-10 00:00:00 Completed [facility] Pneumococcal 7 Conjugate, PCV7 (Prevnar7) 2007-06-10 00:00:00 Completed [facility] IPV 2007-06-10 00:00:00 Completed [facility] DTaP, Unspecified Formulation 2004-03-30 00:00:00 Completed [facility] HIB 4 Dose Schedule 2004-03-30 00:00:00 Completed MMR 2004-03-30 00:00:00 Completed IPV 2004-03-30 00:00:00 Completed Varicella (varivax)(chicken pox) 2004-03-30 00:00:00 Completed DTaP, Unspecified Formulation 2004-03-30 00:00:00 Completed [facility] HIB 4 Dose Schedule 2004-03-30 00:00:00 Completed [facility] MMR 2004-03-30 00:00:00 Completed [facility] IPV 2004-03-30 00:00:00 Completed [facility] Varicella (varivax)(chicken pox) 2004-03-30 00:00:00 Completed [facility] DTaP, Unspecified Formulation 2004-03-30 00:00:00 Completed [facility] HIB 4 Dose Schedule 2004-03-30 00:00:00 Completed [facility] MMR 2004-03-30 00:00:00 Completed [facility] IPV 2004-03-30 00:00:00 Completed [facility] Varicella (varivax)(chicken pox) 2004-03-30 00:00:00 Completed [facility] DTaP, Unspecified Formulation 2004-03-30 00:00:00 Completed [facility] HIB 4 Dose Schedule 2004-03-30 00:00:00 Completed [facility] MMR 2004-03-30 00:00:00 Completed [facility] IPV 2004-03-30 00:00:00 Completed [facility] Varicella (varivax)(chicken pox) 2004-03-30 00:00:00 Completed [facility] DTaP, Unspecified Formulation 2003 00:00:00 Completed Hep B, Adol or Pedi Dosage 2003 00:00:00 Completed HIB 4 Dose Schedule 2003 00:00:00 Completed Pneumococcal 7 Conjugate, PCV7 (Prevnar7) 2003 00:00:00 Completed IPV 2003 00:00:00 Completed DTaP, Unspecified Formulation 2003 00:00:00 Completed [facility] Hep B, Adol or Pedi Dosage 2003 00:00:00 Completed [facility] HIB 4 Dose Schedule 2003 00:00:00 Completed [facility] Pneumococcal 7 Conjugate, PCV7 (Prevnar7) 2003 00:00:00 Completed [facility] IPV 2003 00:00:00 Completed [facility] DTaP, Unspecified Formulation 2003 00:00:00 Completed [facility] Hep B, Adol or Pedi Dosage 2003 00:00:00 Completed [facility] HIB 4 Dose Schedule 2003 00:00:00 Completed [facility] Pneumococcal 7 Conjugate, PCV7 (Prevnar7) 2003 00:00:00 Completed [facility] IPV 2003 00:00:00 Completed [facility] DTaP, Unspecified Formulation 2003 00:00:00 Completed [facility] Hep B, Adol or Pedi Dosage 2003 00:00:00 Completed [facility] HIB 4 Dose Schedule 2003 00:00:00 Completed [facility] Pneumococcal 7 Conjugate, PCV7 (Prevnar7) 2003 00:00:00 Completed [facility] IPV 2003 00:00:00 Completed [facility] DTaP, Unspecified Formulation 2003 00:00:00 Completed Hep B, Adol or Pedi Dosage 2003 00:00:00 Completed HIB 4 Dose Schedule 2003 00:00:00 Completed Pneumococcal 7 Conjugate, PCV7 (Prevnar7) 2003 00:00:00 Completed IPV 2003 00:00:00 Completed DTaP, Unspecified Formulation 2003 00:00:00 Completed [facility] Hep B, Adol or Pedi Dosage 2003 00:00:00 Completed [facility] HIB 4 Dose Schedule 2003 00:00:00 Completed [facility] Pneumococcal 7 Conjugate, PCV7 (Prevnar7) 2003 00:00:00 Completed [facility] IPV 2003 00:00:00 Completed [facility] DTaP, Unspecified Formulation 2003 00:00:00 Completed [facility] Hep B, Adol or Pedi Dosage 2003 00:00:00 Completed [facility] HIB 4 Dose Schedule 2003 00:00:00 Completed [facility] Pneumococcal 7 Conjugate, PCV7 (Prevnar7) 2003 00:00:00 Completed [facility] IPV 2003 00:00:00 Completed [facility] DTaP, Unspecified Formulation 2003 00:00:00 Completed [facility] Hep B, Adol or Pedi Dosage 2003 00:00:00 Completed [facility] HIB 4 Dose Schedule 2003 00:00:00 Completed [facility] Pneumococcal 7 Conjugate, PCV7 (Prevnar7) 2003 00:00:00 Completed [facility] IPV 2003 00:00:00 Completed [facility] Hep B, Adol or Pedi Dosage 2003 00:00:00 Completed Hep B, Adol or Pedi Dosage 2003 00:00:00 Completed [facility] Hep B, Adol or Pedi Dosage 2003 00:00:00 Completed [facility] Hep B, Adol or Pedi Dosage 2003 00:00:00 Completed [facility] DTaP, Unspecified Formulation Unknown Completed [facility] HEPATITIS A Unknown Completed [facility] Hep B, Adol or Pedi Dosage Unknown Completed [facility] Hib-HbOC Unknown Completed [facility] HIB 4 Dose Schedule Unknown Completed [facility] HPV9 Unknown Completed [facility] Meningococcal Polysaccharide (groups A, C, Y and W-135) conjugate vaccine (MCV4P) Unknown Completed [facility] MMR Unknown Completed [facility] Pneumococcal 7 Conjugate, PCV7 (Prevnar7) Unknown Completed [facility] IPV Unknown Completed [facility] Varicella (varivax)(chicken pox) Unknown Completed [facility] TDAP Unknown Completed [facility] DTaP, Unspecified Formulation Unknown Completed [facility] HEPATITIS A Unknown Completed [facility] Hep B, Adol or Pedi Dosage Unknown Completed [facility] Hib-HbOC Unknown Completed [facility] HIB 4 Dose Schedule Unknown Completed [facility] HPV9 Unknown Completed [facility] Meningococcal Polysaccharide (groups A, C, Y and W-135) conjugate vaccine (MCV4P) Unknown Completed [facility] MMR Unknown Completed [facility] Pneumococcal 7 Conjugate, PCV7 (Prevnar7) Unknown Completed [facility] IPV Unknown Completed [facility] Varicella (varivax)(chicken pox) Unknown Completed [facility] TDAP Unknown Completed [facility] DTaP, Unspecified Formulation Unknown Completed [facility] HEPATITIS A Unknown Completed [facility] Hep B, Adol or Pedi Dosage Unknown Completed [facility] Hib-HbOC Unknown Completed [facility] HIB 4 Dose Schedule Unknown Completed [facility] HPV9 Unknown Completed [facility] Meningococcal Polysaccharide (groups A, C, Y and W-135) conjugate vaccine (MCV4P) Unknown Completed [facility] MMR Unknown Completed [facility] Pneumococcal 7 Conjugate, PCV7 (Prevnar7) Unknown Completed [facility] IPV Unknown Completed [facility] Varicella (varivax)(chicken pox) Unknown Completed [facility] TDAP Unknown Completed [facility] DTaP, Unspecified Formulation Unknown Completed [facility]PATITIS A [facility], Adol or Pedi Dosage Unknown Completed [facility] Hib-HbOC Unknown Completed [facility] HIB 4 Dose Schedule Unknown Completed [facility] HPV9 Unknown Completed [facility] Meningococcal Polysaccharide (groups A, C, Y and W-135) conjugate vaccine (MCV4P) Unknown Completed [facility] MMR Unknown Completed [facility] Pneumococcal 7 Conjugate, PCV7 (Prevnar7) Unknown Completed [facility] IPV Unknown Completed [facility] Varicella (varivax)(chicken pox) Unknown Completed [facility] TDAP Unknown Completed [facility] DTaP, Unspecified Formulation Unknown Completed [facility] HEPATITIS A Unknown Completed [facility] Hep B, Adol or Pedi Dosage Unknown Completed [facility] Hib-HbOC Unknown Completed [facility] HIB 4 Dose Schedule Unknown Completed [facility] HPV9 Unknown Completed [facility] Meningococcal Polysaccharide (groups A, C, Y and W-135) conjugate vaccine (MCV4P) Unknown Completed [facility] MMR Unknown Completed [facility] Pneumococcal 7 Conjugate, PCV7 (Prevnar7) Unknown Completed [facility] IPV Unknown Completed [facility] Varicella (varivax)(chicken pox) Unknown Completed [facility] TDAP Unknown Completed [facility] Vital Signs Vital Name Observation Time Observation Value Comments S ource Systolic blood pressure 2024-05-29 21:17:00 135 mm[Hg] [facility] Diastolic blood pressure 2024-05-29 21:17:00 91 mm[Hg] [facility] Heart rate 2024-05-29 21:17:00 102 /min [facility] Body temperature 2024-05-29 21:17:00 36.89 [place] [facility] Respiratory rate 2024-05-29 21:17:00 16 /min [facility] Body height 2024-05-29 21:17:00 152.4 cm [facility] Body weight 2024-05-29 21:17:00 79.833 kg [facility] BMI 2024-05-29 21:17:00 34.37 kg/m2 [facility] Oxygen saturation in Arterial blood by Pulse oximetry 2024-05-29 21:17:00 100 /min [facility] Systolic blood pressure 2023-10-27 03:54:00 135 mm[Hg] [facility] Diastolic blood pressure 2023-10-27 03:54:00 103 mm[Hg] [facility] Heart rate 2023-10-27 03:54:00 95 /min [facility] Body temperature 2023-10-27 03:54:00 36.72 [place] [facility] Respiratory rate 2023-10-27 03:54:00 18 /min [facility] Body height 2023-10-27 03:54:00 152.4 cm [facility] Body weight 2023-10-27 03:54:00 70.761 kg [facility] BMI 2023-10-27 03:54:00 30.47 kg/m2 [facility] Oxygen saturation in Arterial blood by Pulse oximetry 2023-10-27 03:54:00 100 /min [facility] Systolic blood pressure 2023-09-21 04:15:00 120 mm[Hg] [facility] Diastolic blood pressure 2023-09-21 04:15:00 68 mm[Hg] [facility] Heart rate 2023-09-21 04:15:00 93 /min [facility] Body temperature 2023-09-21 04:15:00 36.89 [place] [facility] Respiratory rate 2023-09-21 04:15:00 16 /min [facility] Body height 2023-09-21 04:15:00 152.4 cm [facility] Body weight 2023-09-21 04:15:00 70.761 kg [facility] BMI 2023-09-21 04:15:00 30.47 kg/m2 [facility] Oxygen saturation in Arterial blood by Pulse oximetry 2023-09-21 04:15:00 100 /min [facility] Systolic blood pressure 2023-07-17 03:00:00 122 mm[Hg] [facility] Diastolic blood pressure 2023-07-17 03:00:00 86 mm[Hg] [facility] Heart rate 2023-07-17 03:00:00 73 /min [facility] Respiratory rate 2023-07-17 03:00:00 16 /min [facility] Oxygen saturation in Arterial blood by Pulse oximetry 2023-07-17 03:00:00 100 /min [facility] Body weight 2023-07-17 00:43:00 69.854 kg [facility] BMI 2023-07-17 00:43:00 30.08 kg/m2 [facility] Body temperature 2023-07-17 00:43:00 36.78 [place] Body height 2023-07-17 00:43:00 152.4 cm [facility] Systolic blood pressure 2023-05-17 19:58:00 112 mm[Hg] [facility] Diastolic blood pressure 2023-05-17 19:58:00 76 mm[Hg] [facility] Heart rate 2023-05-17 19:58:00 71 /min [facility] Body temperature 2023-05-17 19:58:00 36.61 [place] [facility] Respiratory rate 2023-05-17 19:58:00 16 /min [facility] Body height 2023-05-17 19:58:00 152.4 cm [facility] Body weight 2023-05-17 19:58:00 66.225 kg [facility] BMI 2023-05-17 19:58:00 28.51 kg/m2 [facility] Oxygen saturation in Arterial blood by Pulse oximetry 2023-05-17 19:58:00 98 /min [facility] Body temperature 2023-01-05 14:10:13 37.72 [place] Systolic blood pressure 2023-01-05 14:00:00 119 mm[Hg] [facility] Diastolic blood pressure 2023-01-05 14:00:00 79 mm[Hg] [facility] Heart rate 2023-01-05 14:00:00 89 /min [facility] Respiratory rate 2023-01-05 14:00:00 15 /min [facility] Oxygen saturation in Arterial blood by Pulse oximetry 2023-01-05 14:00:00 96 /min [facility] Body height 2023-01-05 13:02:00 152.4 cm [facility] Body weight 2023-01-05 13:02:00 72.576 kg [facility] BMI 2023-01-05 13:02:00 31.25 kg/m2 [facility] Systolic blood pressure 2022-12-27 16:46:00 105 mm[Hg] [facility] Diastolic blood pressure 2022-12-27 16:46:00 70 mm[Hg] [facility] Heart rate 2022-12-27 16:46:00 71 /min [facility] Body temperature 2022-12-27 16:46:00 36.78 [place] [facility] Respiratory rate 2022-12-27 16:46:00 18 /min [facility] Body height 2022-12-27 16:46:00 152.4 cm [facility] Body weight 2022-12-27 16:46:00 73.539 kg [facility] BMI 2022-12-27 16:46:00 31.66 kg/m2 [facility] Systolic blood pressure 2022-09-28 02:27:00 133 mm[Hg] [facility] Diastolic blood pressure 2022-09-28 02:27:00 91 mm[Hg] [facility] Heart rate 2022-09-28 02:27:00 94 /min [facility] Body temperature 2022-09-28 02:27:00 37.39 [place] [facility] Respiratory rate 2022-09-28 02:27:00 16 /min [facility] Body height 2022-09-28 02:27:00 152.4 cm [facility] Body weight 2022-09-28 02:27:00 68.13 kg [facility] BMI 2022-09-28 02:27:00 29.33 kg/m2 [facility] Oxygen saturation in Arterial blood by Pulse oximetry 2022-09-28 02:27:00 100 /min [facility] Systolic blood pressure 2022-09-25 03:45:00 124 mm[Hg] [facility] Diastolic blood pressure 2022-09-25 03:45:00 79 mm[Hg] [facility] Heart rate 2022-09-25 03:45:00 81 /min [facility] Body temperature 2022-09-25 03:45:00 36.89 [place] [facility] Respiratory rate 2022-09-25 03:45:00 15 /min [facility] Body height 2022-09-25 03:45:00 152.4 cm [facility] Body weight 2022-09-25 03:45:00 68.04 kg [facility] BMI 2022-09-25 03:45:00 29.29 kg/m2 [facility] Oxygen saturation in Arterial blood by Pulse oximetry 2022-09-25 03:45:00 100 /min [facility] Systolic blood pressure 2021-12-29 20:04:00 134 mm[Hg] [facility] Diastolic blood pressure 2021-12-29 20:04:00 86 mm[Hg] [facility] Heart rate 2021-12-29 20:04:00 76 /min [facility] Body temperature 2021-12-29 20:04:00 36.94 [place] [facility] Respiratory rate 2021-12-29 20:04:00 18 /min [facility] Body height 2021-12-29 20:04:00 152.4 cm [facility] Body weight 2021-12-29 20:04:00 68.856 kg [facility] BMI 2021-12-29 20:04:00 29.65 kg/m2 [facility] Body mass index (BMI) [Percentile] Per age and sex 2021-12-29 20:04:00 93.49 % [facility] Procedures Procedure Date / Time Performed Performing Clinician Source URINALYSIS 2024-05-29 21:20:00 Kristian Terrell [facility] POCT TEST 2024-05-29 21:20:00 Kristian Terrell [facility] POCT TEST 2023-10-27 04:27:00 Darion Nobles [facility] TEST, SERUM 2023-10-27 04:26:00 Lory Nobles [facility] COMP. METABOLIC PANEL (10275) 2023-10-27 04:26:00 Gerard Nobles [facility] CBC WITH DIFF 2023-10-27 04:26:00 Gerard Nobles [facility] URINALYSIS 2023-10-27 04:26:00 Gerard Nobles [facility] CONSENT/REFUSAL FOR DIAGNOSIS AND TREATMENT 2023-10-27 03:50:18 Doctor Unassigned, [place] [facility] ASSIGNMENT OF BENEFITS 2023-09-28 16:03:04 Docto r Unassigned, [place] [facility] NOTICE OF PRIVACY PRACTICES 2023-09-21 04:06:10 Doctor Unassigned, [place] [facility] CONSENT/REFUSAL FOR DIAGNOSIS AND TREATMENT 2023-09-21 04:05:29 Doctor Unassigned, [place] [facility] RAPID STREP SCREEN FOR GROUP A 2023-07-17 03:07:00 Roberto Griffith [facility] POCT TEST 2023-07-17 01:53:00 Marcelina Cardozo [facility] COMP. METABOLIC PANEL (00290) 2023-07-17 01:51:00 Sandi Cardozo [facility] CBC WITH DIFF 2023-07-17 01:51:00 Sandi Cardozo [facility] URINALYSIS 2023-07-17 01:51:00 Sandi Cardozo [facility] EBV-MONONUCLEOSIS SCREEN 2023-07-17 01:51:00 Roberto Griffith [facility] CONSENT/REFUSAL FOR DIAGNOSIS AND TREATMENT 2023-07-17 00:37:35 Doctor Unassigned, [place] [facility] POCT TEST 2023-05-17 20:06:00 Farooq Davis [facility] POCT URINALYSIS 2023-05-17 20:00:00 Farooq Davis [facility] RAPID STREP SCREEN FOR GROUP A 2023-01-05 13:18:00 Roberto Griffith [facility] RAPID INFLUENZA A/B 2023-01-05 13:09:00 Aminah Griffith [facility] COVID-19 (ID NOW RAPID TESTING) 2023-01-05 13:09:00 Roberto Griffith [facility] THYROID STIMULATING HORMONE 2022-12-27 17:10:00 Joyce Lopez [facility] CBC WITH DIFF 2022-12-27 17:10:00 Joyce Lopez [facility] GLYCOSYLATED HEMOGLOBIN (A1C) 2022-12-27 17:10:00 Joyce Lopez [facility] RUBELLA SCREEN IGG 2022-12-27 17:10:00 Gretchen Lopez [facility] HCV ANTIBODY 2022-12-27 17:10:00 [facility] & CHLAMYDIA AMPLIFIED ASSAY 2022-12-27 17:10:00 Joyce Lopez [facility] HIV 1/2 AG-AB WITH REFLEX 2022-12-27 17:10:00 Joyce Lopez [facility] SYPHILIS IGG/IGM 2022-12-27 17:10:00 Joyce Lopez [facility] GARDASIL 9 (HPV 9V) VACCINE 2022-12-27 16:53:08 Joyce Lopez [facility] POCT TEST 2022-12-27 16:47:00 Vignesh Lopez [facility] ASSIGNMENT OF BENEFITS 2022-12-27 15:53:31 Docto r Unassigned, [place] [facility] CONSENT/REFUSAL FOR DIAGNOSIS AND TREATMENT 2022-09-28 02:20:10 Doctor Unassigned, [place] [facility] POCT TEST 2022-09-25 04:35:00 Bandar Castillo [facility] NOTICE OF PRIVACY PRACTICES 2022-09-25 03:45:44 Doctor Unassigned, [place] [facility] CONSENT/REFUSAL FOR DIAGNOSIS AND TREATMENT 2022-09-25 03:44:56 Doctor Unassigned, [place] [facility] Encounters Start Date/Time End Date/Time Encounter Type Admission Type Attending [facility] Care Facility Care Department Encounter ID Source 2021-06-26 08:58:39 Emergency [facility] [id number] [facility] 2021-06-24 18:43:46 Outpatient LES HUGGINS [facility] [id number] [facility] 2024-07-28 09:45:00 2024-07-28 09:45:00 Outpatient PHAN GARAY [facility] [id number] [facility] 2024-07-28 09:07:05 2024-07-28 09:07:05 Outpatient [facility] [id number] Marquis Hart 2024-05-29 16:19:00 2024-05-29 17:53:00 Emergency X Kristian TERRELL K [facility] ERT [id number] [facility] 2024-05-29 16:19:00 2024-05-29 17:53:00 Emergency Kristian Terrell [facility] 1.2.840.114 350.1.13.10 4.2.7.2.686 [id number] [facility] 2023-11-29 15:30:00 2023-11-29 15:30:00 Outpatient ALAN BAEZA [id number] Yady López 2023-10-26 21:57:00 2023-10-26 23:58:00 Emergency X GERARD NOBLES SHINTA [facility] ERT [id number] [facility] 2023-10-26 21:57:00 2023-10-26 23:58:00 Emergency Gerard Nobles [facility] 1..840.114 350.1.13.10 4.2.7.2.686 [id number] [facility] 2023-10-16 15:53:57 2023-10-16 15:53:57 Outpatient [facility] [id number] Marquis Hart 2023-09-28 10:15:00 2023-09-28 10:15:00 Outpatient CATRACHITA PRATHER [facility] [id number] [facility] 2023-09-28 00:00:00 2023-09-28 00:00:00 Orders Only Doctor Unassigned, [place] [facility] 1.2.840.114 350.1.13.10 4.2.7.2.686 [id number] [facility] 2023-09-20 22:18:00 2023-09-20 23:14:00 Emergency X ROBERTO GRIFFITH [facility] ERT [id number] [facility] 2023-09-20 22:18:00 2023-09-20 23:14:00 Emergency Roberto Griffith [facility] 1..840.114 350.1.13.10 4.2.7.2.686 [id number] [facility] 2023-07-16 18:45:00 2023-07-16 22:54:00 Emergency X ROBERTO GRIFFITH [facility] ERT [id number] [facility] 2023-07-16 18:45:00 2023-07-16 22:54:00 Emergency Sandi Cardozo [facility] 1..840.114 350.1.13.10 4.2.7.2.686 [id number] [facility] 2023-07-03 14:00:00 2023-07-03 14:00:00 Outpatient R VIANEY GARCIA [facility] [id number] [facility] 2023-05-17 15:00:00 2023-05-17 15:24:56 Outpatient R FAROOQ DAVIS [facility] [id number] [facility] 2023-05-17 15:00:00 2023-05-17 15:20:00 Urgent Care Farooq Davis Unknown, Attending [facility] ..840.114 350.1.13.10 4.2.7.2.686 [id number] [facility] 2023-03-27 13:30:00 2023-03-27 13:30:00 Outpatient R JOYCE LOPEZ [facility] [id number] [facility] 2023-03-13 00:00:00 2023-03-13 00:00:00 Telephone Joyce Lopez [facility]ONDENCE [facility]ILD [facility] 1..840.114 350.1.13.10 4.2.7.2.686 [id number] [facility] 2023-01-05 08:03:00 2023-01-05 09:46:00 Emergency X ROBERTO GRIFFITH [facility] ERT [id number] [facility] 2023-01-05 08:03:00 2023-01-05 09:46:00 Emergency Roberto Griffith [facility] 1.2840.114 350.1.13.10 4.2.7.2.686 [id number] [facility] 2022-12-27 11:00:00 2022-12-27 12:13:57 Outpatient R JOYCE LOPEZ [facility] [id number] [facility] 2022-12-27 11:00:00 2022-12-27 12:13:57 Office Visit Joyce Lopez [facility] 1.840.114 350.1.13.10 4.2.7.2.686 [id number] [facility] 2022-12-27 00:00:00 2022-12-27 00:00:00 Orders Only Doctor Unassigned, [place] [facility] 1.2840.114 350.1.13.10 4.2.7.2.686 [id number] [facility] 2022-09-27 20:33:00 2022-09-27 21:45:00 Emergency X ALEXIS CAMPOS [facility] ERT [id number] [facility] 2022-09-27 20:33:00 2022-09-27 21:45:00 Emergency Alexis Campos S [facility] 1.2840.114 350.1.13.10 4.2.7.2.686 [id number] [facility] 2022-09-27 10:15:00 2022-09-27 10:15:00 Outpatient R YENNYANNABELLE ACOSTA [facility] [id number] [facility] 2022-09-24 21:55:00 2022-09-24 23:00:00 Emergency X BANDAR CASTILLO [facility] ERT [id number] [facility] 2022-09-24 21:55:00 2022-09-24 23:00:00 Emergency Bandar Castillo S [facility] 1..114 350.1.13.10 4.2.7.2.686 [id number] [facility] 2022-01-06 09:56:00 2022-01-06 09:56:00 Outpatient Facundo Almanzar [facility] [id number] [facility] 2021-12-30 00:00:00 2021-12-30 00:00:00 Telephone Mayra Saavedra [facility] MAT[facility]NAL & CHILD [facility] 1..114 350.1.13.10 4.2.7.2.686 [id number] [facility] 2021-12-29 15:15:00 2021-12-29 15:46:42 Outpatient R MAYRA SAAVEDRA [facility] [id number] [facility] 2021-12-29 15:15:00 2021-12-29 15:46:42 Office Visit Mayra Saavedra [facility]ONDENCE [facility] MAT[facility]NAL & CHILD [facility] 1.84.114 350.1.13.10 4.2.7.2.686 [id number] [facility] 2021-12-29 00:00:00 2021-12-29 00:00:00 Orders Only Doctor Unassigned, [place] [facility] 1..114 350.1.13.10 4.2.7.2.686 [id number] [facility] 2021-12-22 09:45:00 2021-12-22 09:45:00 Outpatient VIGNESH JULIENTT [facility] [id number] [facility] 2021-12-22 09:45:00 2021-12-22 09:45:00 Outpatient Cecily COONRENETTA [facility] [id number] [facility] 2021-12-14 15:00:00 2021-12-14 15:00:00 Outpatient VIANEY RUIZ [facility] [id number] [facility] 2021-12-08 08:53:50 2021-12-08 23:59:00 Outpatient Cecily COON RENETTA [facility] [id number] [facility] 2021-12-08 08:45:00 2021-12-08 10:02:07 Outpatient RENETTA JULIEN [facility] [id number] [facility] 2021-12-08 08:45:00 2021-12-08 10:02:07 Outpatient Cecily COON RENETTA [facility] [id number] [facility] 2021-12-08 08:45:00 2021-12-08 09:00:00 [facility] 1.2.840.114 350.1.13.10 4.2.7.2.686 [id number] [facility] 2021-12-01 14:15:00 2021-12-01 14:15:00 Outpatient RENETTA JULIEN [facility] [id number] [facility] 2021-12-01 14:15:00 2021-12-01 14:15:00 Outpatient RENETTA JULIEN [facility] [id number] [facility] 2021-11-29 09:15:00 2021-11-29 09:30:00 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, [facility] Annabelle Jo [facility] 1.2.840.114 350.1.13.10 4.2.7.2.686 [id number] [facility] 2021-11-29 09:15:00 2021-11-29 09:15:00 Outpatient Cecily JOANNABELLE [facility] [id number] [facility] 2021-11-29 09:15:00 2021-11-29 09:15:00 Outpatient Cecily JOMARGACY [facility] [id number] [facility] 2021-11-29 08:30:00 2021-11-29 08:30:00 Office Visit TylorMargacy [facility] 1.2.840.114 350.1.13.10 4.2.7.2.686 [id number] [facility] 2021-11-24 00:00:00 2021-11-24 00:00:00 Orders Only Doctor Unassigned, [place] [facility] 1..840.114 350.1.13.10 4.2.7.2.686 [id number] [facility] 2021-11-17 15:00:00 2021-11-17 15:00:00 Outpatient [id number] 2021-11-09 09:00:00 2021-11-09 09:00:00 Outpatient Cecily JO [facility] [id number] [facility] 2021-09-21 15:30:00 2021-09-21 15:41:13 Nurse Visit Nurse, [facility] Vianey Garcia [facility] 1..840.114 350.1.13.10 4.2.7.2.686 [id number] [facility] 2021-09-21 15:30:00 2021-09-21 15:30:00 Outpatient VIANEY RUIZ [facility] [id number] [facility] 2021-09-13 15:30:00 2021-09-13 15:30:00 Outpatient R VIANEY GARCIA [facility] [id number] [facility] 2021-08-03 15:30:00 2021-08-03 15:30:00 Outpatient R [facility] [id number] [facility] 2021-05-11 15:44:35 2021-05-11 16:44:44 Nurse Visit Nurse, [facility] Samanta Petty [facility] 1..840.114 350.1.13.10 4.2.7.2.686 [id number] [facility] 2021-05-11 08:00:00 2021-05-11 08:00:00 Outpatient R [facility] [id number] [facility] 2021-05-11 00:00:00 2021-05-11 00:00:00 Orders Only Doctor Unassigned, [place] [facility] 1..840.114 350.1.13.10 4.2.7.2.686 [id number] [facility] 2021-05-10 08:00:00 2021-05-10 08:00:00 Outpatient R [facility] [id number] [facility] 2021-05-03 15:00:00 2021-05-03 15:00:00 Outpatient R [facility] [id number] [facility] 2021-04-30 00:00:00 2021-04-30 00:00:00 Nurse Triage Lcurecia Williamson [facility] 1..840.114 350.1.13.10 4.2.7.2.686 [id number] [facility] 2021-03-18 15:30:00 2021-03-18 15:30:00 Outpatient R [facility] [id number] [facility] 2021-03-16 14:30:00 2021-03-16 14:30:00 Outpatient R [facility] [id number] [facility] 2021-03-16 00:00:00 2021-03-16 00:00:00 Telephone AdVianey teague [facility] 1.2.840.114 350.1.13.10 4.2.7.2.686 [id number] [facility] 2021-02-25 10:15:00 2021-02-25 10:15:00 Outpatient Cecily COON RENETTA [facility] [id number] [facility] 2021-02-17 15:00:00 2021-02-17 15:00:00 Outpatient Cecily COON RENETTA [facility] [id number] [facility] 2021-02-11 10:00:00 2021-02-11 10:00:00 Outpatient Cecily COON [facility] [id number] [facility] 2020-12-15 14:23:49 2020-12-15 14:38:49 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, [facility] Lab AdVianey teague [facility] 1.2.840.114 350.1.13.10 4.2.7.2.686 [id number] [facility] 2020-12-15 13:51:57 2020-12-15 14:18:57 Nurse Visit Nurse, [facility] Adzahida Vianey [facility] 1.2.840.114 350.1.13.10 4.2.7.2.686 [id number] [facility] 2020-12-15 14:00:00 2020-12-15 14:00:00 Outpatient Cecily GARCIA [facility] [id number] [facility] 2020-12-06 13:30:00 2020-12-06 13:30:00 Outpatient Cecily GARCIA [facility] [id number] [facility] 2020-11-20 17:26:00 2020-11-20 17:37:00 Emergency Belinda Hall [facility] 1.2.840.114 350.1.13.10 4.2.7.2.686 [id number] [facility] 2020-11-20 00:00:00 2020-11-20 00:00:00 Orders Only Doctor Unassigned, [place] [facility] 1.2.840.114 350.1.13.10 4.2.7.2.686 [id number] [facility] 2020-11-16 00:00:00 2020-11-16 00:00:00 Case Management AdVianey teague [facility] 1.2.840.114 350.1.13.10 4.2.7.2.686 [id number] [facility] 2020-11-09 13:35:56 2020-11-09 15:09:56 Office Visit AdzahidaVianey [facility] 1.2.840.114 350.1.13.10 4.2.7.2.686 [id number] [facility] 2020-11-09 13:30:00 2020-11-09 13:30:00 Outpatient R VIANEY GARCIA [facility] [id number] [facility] 2020-11-08 15:45:00 2020-11-08 15:45:00 Outpatient R ANNABELLE JO [facility] [id number] [facility] 2020-11-05 15:00:00 2020-11-05 15:00:00 Outpatient R VIANEY GARCIA [facility] [id number] [facility] 2020-11-04 14:30:00 2020-11-04 14:30:00 Outpatient R VIANEY GARCIA [facility] [id number] [facility] 2020-11-02 00:00:00 2020-11-02 00:00:00 Telephone Adum, [facility] 1.2.840.114 350.1.13.10 4.2.7.2.686 [id number] [facility] 2020-09-23 00:00:00 2020-09-23 00:00:00 Orders Only Doctor Unassigned, [place] [facility] 1.2.840.114 350.1.13.10 4.2.7.2.686 [id number] [facility] 2020-09-15 00:00:00 2020-09-15 00:00:00 Case Management Adum, Vianey Hernandez [facility] 1.2.840.114 350.1.13.10 4.2.7.2.686 [id number] [facility] 2020-09-10 00:00:00 2020-09-10 00:00:00 Case Management AdumVianey [facility] 1.2.840.114 350.1.13.10 4.2.7.2.686 [id number] [facility] 2020-09-09 10:14:30 2020-09-09 10:29:30 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, [facility] AdVianey teague [facility] 1.2.840.114 350.1.13.10 4.2.7.2.686 [id number] [facility] 2020-09-09 08:31:02 2020-09-09 09:58:53 Office Visit AdVianey teague [facility] 1.2.840.114 350.1.13.10 4.2.7.2.686 [id number] [facility] 2020-09-09 09:00:00 2020-09-09 09:00:00 Outpatient R VIANEY GARCIA [facility] [id number] [facility] 2020-09-09 00:00:00 2020-09-09 00:00:00 Orders Only Doctor Unassigned, [place] [facility] 1.20.114 350.1.13.10 4.2.7.2.686 [id number] [id number] [facility] 2020-06-15 00:00:00 2020-06-15 00:00:00 Orders Only Doctor Unassigned, [place] [facility] 1.20.114 350.1.13.10 4.2.7.2.686 [id number] [id number] [facility] 2020-06-07 15:12:17 2020-06-07 15:27:17 Office Visit [facility] 1..114 350.1.13.10 4.2.7.2.686 [id number] [facility] 2020-06-07 15:00:00 2020-06-07 15:00:00 Outpatient R RENETTA COON [facility] [id number] [facility] 2020-05-24 05:58:00 2020-05-24 09:24:00 Hospital Encounter Les Huggins [facility] 1.114 350.1.13.10 4.2.7.2.686 [id number] [facility] 2020-05-22 13:24:32 2020-05-22 13:44:32 Laboratory Only Lab, Adc Fam Pob I [facility] Profess[facility] nal Office Building One 1.114 350.1.13.10 4.2.7.2.686 [id number] [facility] 2020-05-22 13:20:00 2020-05-22 13:20:00 Outpatient R [facility] [id number] [facility] 2020-05-21 11:00:00 2020-05-21 11:00:00 Outpatient R PANKAJ REESE [facility] [id number] [facility] 2020-05-17 00:00:00 2020-05-17 00:00:00 Prep For Surgery Les Huggins [facility] [place] 1.2.840.114 350.1.13.10 4.2.7.2.686 [id number] [facility] 2020-05-13 11:14:45 2020-05-13 11:39:37 Office Visit Renetta Coon [facility] [place] 1.2.840.114 350.1.13.10 4.2.7.2.686 [id number] [facility] 2020-05-13 11:00:00 2020-05-13 11:00:00 Outpatient R LES HUGGINS [facility] [id number] [facility] 2020-05-13 00:00:00 2020-05-13 00:00:00 Letter (Out) Renetta Coon [facility] [place] 1.2.840.114 350.1.13.10 4.2.7.2.686 [id number] [facility] 2020-05-13 00:00:00 2020-05-13 00:00:00 Letter (Out) Renetta Coon [facility] [place] 1.2.840.114 350.1.13.10 4.2.7.2.686 [id number] [facility] 2020-05-05 15:15:00 2020-05-05 23:59:00 Hospital Encounter Les Huggins [facility] 1.2.840.114 350.1.13.10 4.2.7.2.686 [id number] [facility] 2020-05-05 00:00:00 2020-05-05 00:00:00 Outpatient R BHAVNA LES [facility] [id number] [facility] 2020-04-15 00:00:00 2020-04-15 00:00:00 Orders Only Doctor Unassigned, [place] [facility] 1.2.840.114 350.1.13.10 4.2.7.2.686 [id number] [facility] 2020-04-08 00:00:00 2020-04-08 00:00:00 Telephone Huggins [facility] 1.2.840.114 350.1.13.10 4.2.7.2.686 [id number] [facility] 2020-04-05 14:45:57 2020-04-05 15:00:57 Office Visit Renetta Coon [facility] 1.2.840.114 350.1.13.10 4.2.7.2.686 [id number] [facility] 2020-04-05 15:00:00 2020-04-05 15:00:00 Outpatient R RENETTA COON [facility] [id number] [facility] 2020-04-01 14:00:00 2020-04-01 14:00:00 Outpatient RENETTA JULIEN [facility] [id number] [facility] 2020 11:37:49 2020 13:13:00 Emergency Mariaa Rae [facility] 1.2.840.114 350.1.13.10 4.2.7.2.686 [id number] [facility] 2020 11:37:49 2020 13:13:00 Emergency X MARIAA RAE [facility] ERT [id number] [facility] Results Test Description Test Time Test Comments Results Result Co mments Source [facility], [id number] 04:54:53* Test Item Value Reference Range Interpretation Comme nts PREG SERUM (test code = 3005744337) Negative ZORAIDA (test code = ZORAIDA) Less than 10 IU/L. ?If low titer or ectopic is suspected, resubmit specimen in 48-72 hours. [facility]. Metabolic Panel (04967)2023-10-27 04:49:57* Test Item Value Reference Range Interpretation Comme nts NA (test code = 2883448951) 139 mmol/L 135-145 K (test code = 7157515499) 4.0 mmol/L 3.5-5.0 CL (test code = 0570408964) 108 mmol/L 98-108 CO2 TOTAL (test code = 7410066207) 25 mmol/L 23-31 AGAP (test code = 7477079429) 6 2-16 BUN (test code = 4005366617) 14 mg/dL 7-23 GLUCOSE (test code = 2791020102) 97 mg/dL 70-110 CREATININE (test code = 2160-0) 0.56 mg/dL 0.50-1.04 TOTAL BILI (test code = 2219901838) 0.7 mg/dL 0.1-1.1 CALCIUM (test code = 8743624634) 8.8 mg/dL 8.6-10.6 T PROTEIN (test code = 4049545778) 8.4 g/dL 6.3-8.2 H ALBUMIN (test code = 3597296833) 4.1 g/dL 3.5-5.0 ALK PHOS (test code = 1480708514) 65 U/L 34-122 ALTv (test code = 1742-6) 21 U/L 5-35 AST(SGOT) (test code = 7562576140) 37 U/L 13-40 eGFR (test code = 81676-6) 134.2 mL/min/1.73m2 CKD-EPI eGFR (2020). Assuming creatinine has been stable day-to-day for at least three months, the eGFR indicates Category G1 (>= 90 mL/min/1.73 m2) Lab Interpretation (test code = 76494-4) Abnormal [facility] with [id number] 04:36:34* Test Item Value Reference Range Interpretation [...] 33.6 g/dL 31.6-35.1 RDW-SD (test code = 41573-7) 43.0 fL 39.0-49.9 RDW-CV (test code = 788-0) 13.5 % 12.0-15.5 PLT (test code = 777-3) 241 166-358 MPV (test code = 94950-5) 12.1 fL 9.5-12.9 NRBC/100 WBC (test code = 3423098307) 0.0 0.0-10.0 NRBC x10^3 (test code = 7032779942) See_Comment [Automated messa ge] The system which generated this result transmitted reference range: 10*3/?L. The reference range was not used to interpret this result as normal/abnormal. GRAN MAT (NEUT) % (test code = 770-8) 67.8 % IMM GRAN % (test code = 6271463215) 0.60 % LYMPH % (test code = 736-9) 21.2 % MONO % (test code = 5905-5) 8.9 % EOS % (test code = 713-8) 1.0 % BASO % (test code = 706-2) 0.5 % GRAN MAT x10^3(ANC) (test code = 4449884291) 8.58 10*3/uL 1.88-7.09 H IMM GRAN x10^3 (test code = 6896358512) 0.07 10*3/uL 0.00-0.06 H LYMPH x10^3 (test code = 731-0) 2.67 10*3/uL 1.32-3.29 MONO x10^3 (test code = 742-7) 1.12 10*3/uL 0.33-0.92 H EOS x10^3 (test code = 711-2) 0.12 10*3/uL 0.03-0.39 BASO x10^3 (test code = 704-7) 0.06 10*3/uL 0.01-0.07 Lab Interpretation (test code = 54281-4) Abnormal [facility] [id number] 04:27:00* Test Item Value Reference Range Interpretation Comme nts POCT PREG (test code = 1605) Negative On board controls acceptable with C Line (test code = 3574) Yes POCT PREG LOT # (test code = 3575) [id number] POCT PREG TEST DATE ( test code = 3576) 10-01-2024 Lab Interpretation (test cod e = 94367-3) Normal [facility]OLIC PANEL (25902)2023-07-17 02:17:29* Test Item Value Reference Range Interpretation Comme nts NA (test code = 2598983122) 140 mmol/L 135-145 K (test code = 8677141777) 3.9 mmol/L 3.5-5.0 CL (test code = 9596115609) 103 mmol/L 98-108 CO2 TOTAL (test code = 1901134945) 29 mmol/L 23-31 AGAP (test code = 5151871565) 8 2-16 BUN (test code = 6419809591) 10 mg/dL 7-23 GLUCOSE (test code = 9984107059) 95 mg/dL 70-110 CREATININE (test code = 2848914026) 0.84 mg/dL 0.50-1.04 TOTAL BILI (test code = 6125344009) 0.3 mg/dL 0.1-1.1 CALCIUM (test code = 0321316187) 9.1 mg/dL 8.6-10.6 T PROTEIN (test code = 1714025251) 8.4 g/dL 6.3-8.2 H ALBUMIN (test code = 4353938446) 4.5 g/dL 3.5-5.0 ALK PHOS (test code = 9278138264) 80 U/L 34-122 ALTv (test code = 1742-6) 16 U/L 5-35 AST(SGOT) (test code = 7631557772) 22 U/L 13-40 eGFR (test code = 32168-1) 102.2 mL/min/1.73m2 CKD-EPI eGFR (2020). Assuming creatinine has been stable day-to-day for at least three months, the eGFR indicates Category G1 (>= 90 mL/min/1.73 m2) Lab Interpretation (test code = 81176-4) Abnormal [facility] WITH [id number] 02:15:48* Test Item Value Reference Range Interpretation Comme nts WBC (test code = 6690-2) 11.54 See_Comment H [Automated Soft Tissue Regenerationa Storenvy] The system which generated this result transmitted reference range: 4.30 - 11.10 10*3/?L. The reference range was not used to interpret this result as normal/abnormal. RBC (test code = 789-8) 4.87 See_Comment [Automated Soft Tissue Regenerationa Storenvy] The system which generated this result transmitted [...] 33.3 g/dL 31.6-35.1 RDW-SD (test code = 39732-1) 42.6 fL 39.0-49.9 RDW-CV (test code = 788-0) 13.2 % 12.0-15.5 PLT (test code = 777-3) 277 See_Comment [Automated Soft Tissue Regenerationa Storenvy] The system which generated this result transmitted reference range: 166 - 358 10*3/?L. The reference range was not used to interpret this result as normal/abnormal. MPV (test code = 70065-0) 10.5 fL 9.5-12.9 NRBC/100 WBC (test code = 6905897451) 0.0 See_Comment [Automated me ssage] The system which generated this result transmitted reference range: 0.0 - 10.0 /100 WBCs. The reference range was not used to interpret this result as normal/abnormal. NRBC x10^3 (test code = 5250215518) See_Comment [Automated messa ge] The system which generated this result transmitted reference range: 10*3/?L. The reference range was not used to interpret this result as normal/abnormal. GRAN MAT (NEUT) % (test code = 770-8) 60.3 % IMM GRAN % (test code = 9291344686) 0.30 % LYMPH % (test code = 736-9) 25.9 % MONO % (test code = 5905-5) 10.8 % EOS % (test code = 713-8) 2.0 % BASO % (test code = 706-2) 0.7 % GRAN MAT x10^3(ANC) (test code = 1220851379) 6.95 10*3/uL 1.88-7.09 IMM GRAN x10^3 (test code = 8239807885) 0.04 10*3/uL 0.00-0.06 LYMPH x10^3 (test code = 731-0) 2.99 10*3/uL 1.32-3.29 MONO x10^3 (test code = 742-7) 1.25 10*3/uL 0.33-0.92 H EOS x10^3 (test code = 711-2) 0.23 10*3/uL 0.03-0.39 BASO x10^3 (test code = 704-7) 0.08 10*3/uL 0.01-0.07 H Lab Interpretation (test code = 69892-3) Abnormal [facility] [id number] 01:53:00* Test Item Value Reference Range Interpretation Comme nts POCT PREG (test code = 1605) Negative On board controls acceptable with C Line (test code = 3574) Yes POCT PREG LOT # (test code = 3572) [id number] POCT PREG TEST DATE ( test code = 3576) 2024-11-29 Lab Interpretation (test cod e = 43524-8) Normal [facility] [id number] 20:06:00* Test Item Value Reference Range Interpretation Comme nts POCT PREG (test code = 1605) Negative On board controls acceptable with C Line (test code = 3574) Yes POCT PREG LOT # (test code = 3575) POCT PREG TEST DATE ( test code = 3576) [facility] URINALYSIS W SPECIFIC [id number] 20:01:00* Test Item Value Reference Range Interpretation [...] U APPEAR (test code = 3267) cloudy [facility] CenterRU[facility]LL SCREEN (ANGELIC) [id number] 19:07:18 * Test Item Value Reference Range Interpretation Comme [facility] Rubella screen IgG (test code = 9959344429) Positive Negative ZORAIDA (test code = ZORAIDA) Positive - Indicat es the patient was exposed to Rubella through infection or vaccination.Negative - Indicates the patient could be susceptible to Rubella infection.Equivocal - A second specimen should be sent. [facility] Center[facility]LLA SCREEN (ANGELIC) [id number] 19:07:18 * Test Item Value Reference Range Interpretation Comme [facility] Rubella screen IgG (test code = 9039893222) Positive Negative ZORAIDA (test code = ZORAIDA) Positive - Indicat es the patient was exposed to Rubella through infection or vaccination.Negative - Indicates the patient could be susceptible to Rubella infection.Equivocal - A second specimen should be sent. [facility] ONLY - SYPHILIS IGG/[id number] 17:26:01* Test Item Value Reference Range Interpretation Comme nts Syphilis IgG/IgM (test code = 00301-4) Non-reactive Non-reactive ZORAIDA (test code = ZORAIDA) Non-reactive - No serologic evidence of T. pallidum infection. Cannot exclude incubating or early syphilis. Submit a second specimen in 2-4 weeks if syphilis is clinically suspected. Equivocal - Further testing to follow. Reactive - Further testing to follow. Lab Interpretation (test code = 14733-0) Normal [facility] ONLY - SYPHILIS IGG/[id number] 17:26:01* Test Item Value Reference Range Interpretation Comme nts Syphilis IgG/IgM (test code = 06493-8) Non-reactive Non-reactive ZORAIDA (test code = ZORAIDA) Non-reactive - No serologic evidence of T. pallidum infection. Cannot exclude incubating or early syphilis. Submit a second specimen in 2-4 weeks if syphilis is clinically suspected. Equivocal - Further testing to follow. Reactive - Further testing to follow. Lab Interpretation (test code = 32174-3) Normal [facility] Center[facility]OSYLATED HEMOGLOBIN (A1C)2022-12-28 15:57:54* Test Item Value Reference Range Interpretation Comme nts HGB A1C (test code = 4548-4) 5.5 % 4.0-5.7 ZORAIDA (test code = ZORAIDA) Reference RangesNormal: <5.7%Prediabetes: 5.7 - 6.4%Diabetes: > 6.5% Lab Interpretation (test code = 03455-5) Normal [facility] Center[facility]YCOSYLATED HEMOGLOBIN (A1C)2022-12-28 15:57:54* Test Item Value Reference Range Interpretation Comme nts HGB A1C (test code = 4548-4) 5.5 % 4.0-5.7 ZORAIDA (test code = ZORAIDA) Reference RangesNormal: <5.7%Prediabetes: 5.7 - 6.4%Diabetes: > 6.5% Lab Interpretation (test code = 14126-9) Normal [facility] 1/2 AG-AB WITH [id number] 12:20:58* Test Item Value Reference Range Interpretation Comme nts HIV Semi-quantitative (test code = 15810-4) 0.07 Negative ZORAIDA (test code = ZORAIDA) Non-reactive for HIV-1 antigen and HIV-1/HIV-2 antibodies. ?No laboratory evidence of HIV infection. ?Repeat in 2-4 weeks if acute HIV infection is suspected. [facility]2 AG-AB WITH [id number] 12:20:58* Test Item Value Reference Range Interpretation Comme nts HIV Semi-quantitative (test code = 28390-9) 0.07 Negative ZORAIDA (test code = ZORAIDA) Non-reactive for HIV-1 antigen and HIV-1/HIV-2 antibodies. ?No laboratory evidence of HIV infection. ?Repeat in 2-4 weeks if acute HIV infection is suspected. [facility] CenterH[facility] [id number] 09:03:31* Test Item Value Reference Range Interpretation Comme nts HCV Ab (test code = 23800-2) Negative HCV Semi-Quantitative (test code = 72084-8) 0.02 [facility] [id number] 09:03:31* Test Item Value Reference Range Interpretation Comme nts HCV Ab (test code = 16980-2) Negative HCV Semi-Quantitative (test code = 21498-5) 0.02 [facility] CenterTHYROID STIMULATING [id number] 08:28:04 * Test Item Value Reference Range Interpretation Comme nts TSH (test code = 2784305273) 0.99 See_Comment [Automated Soft Tissue Regenerationa Storenvy] The system which generated this result transmitted reference range: 0.45 - 4.70 mIU/L. The reference range was not used to interpret this result as normal/abnormal. Lab Interpretation (test code = 65838-1) Normal [facility] CenterTHYROID STIMULATING [id number] 08:28:04 * Test Item Value Reference Range Interpretation Comme nts TSH (test code = 7865515121) 0.99 See_Comment [Automated Soft Tissue Regenerationa ge] The system which generated this result transmitted reference range: 0.45 - 4.70 mIU/L. The reference range was not used to interpret this result as normal/abnormal. Lab Interpretation (test code = 61983-6) Normal [facility] WITH [id number] 07:54:04* Test Item Value Reference Range Interpretation [...] 32.7 g/dL 31.6-35.1 RDW-SD (test code = 08887-2) 42.5 fL 39.0-49.9 RDW-CV (test code = 788-0) 13.0 % 12.0-15.5 PLT (test code = 777-3) 232 See_Comment [Automated messa ge] The system which generated this result transmitted reference range: 166 - 358 10*3/?L. The reference range was not used to interpret this result as normal/abnormal. MPV (test code = 29531-7) 11.5 fL 9.5-12.9 NRBC/100 WBC (test code = 7986129296) 0.0 See_Comment [Automated ReserveOut ssage] The system which generated this result transmitted reference range: 0.0 - 10.0 /100 WBCs. The reference range was not used to interpret this result as normal/abnormal. NRBC x10^3 (test code = 0978255062) See_Comment [Automated messa ge] The system which generated this result transmitted reference range: 10*3/?L. The reference range was not used to interpret this result as normal/abnormal. GRAN MAT (NEUT) % (test code = 770-8) 57.6 % IMM GRAN % (test code = 9712459658) 0.20 % LYMPH % (test code = 736-9) 29.9 % MONO % (test code = 5905-5) 8.6 % EOS % (test code = 713-8) 2.7 % BASO % (test code = 706-2) 1.0 % GRAN MAT x10^3(ANC) (test code = 3930061247) 5.43 10*3/uL 1.88-7.09 IMM GRAN x10^3 (test code = 2869329202) 0.00-0.06 LYMPH x10^3 (test code = 731-0) 2.81 10*3/uL 1.32-3.29 MONO x10^3 (test code = 742-7) 0.81 10*3/uL 0.33-0.92 EOS x10^3 (test code = 711-2) 0.25 10*3/uL 0.03-0.39 BASO x10^3 (test code = 704-7) 0.09 10*3/uL 0.01-0.07 H Lab Interpretation (test code = 87653-1) Abnormal [facility] WITH [id number] 07:54:04* Test Item Value Reference Range Interpretation Comme nts WBC (test code = 6690-2) 9.41 See_Comment [Automated Soft Tissue Regenerationa ge] The system which generated this result [...] 32.7 g/dL 31.6-35.1 RDW-SD (test code = 53684-5) 42.5 fL 39.0-49.9 RDW-CV (test code = 788-0) 13.0 % 12.0-15.5 PLT (test code = 777-3) 232 See_Comment [Automated messa ge] The system which generated this result transmitted reference range: 166 - 358 10*3/?L. The reference range was not used to interpret this result as normal/abnormal. MPV (test code = 18689-7) 11.5 fL 9.5-12.9 NRBC/100 WBC (test code = 7267443777) 0.0 See_Comment [Automated ReserveOut ssage] The system which generated this result transmitted reference range: 0.0 - 10.0 /100 WBCs. The reference range was not used to interpret this result as normal/abnormal. NRBC x10^3 (test code = 5782833224) See_Comment [Automated Soft Tissue Regenerationa ge] The system which generated this result transmitted reference range: 10*3/?L. The reference range was not used to interpret this result as normal/abnormal. GRAN MAT (NEUT) % (test code = 770-8) 57.6 % IMM GRAN % (test code = 7307922075) 0.20 % LYMPH % (test code = 736-9) 29.9 % MONO % (test code = 5905-5) 8.6 % EOS % (test code = 713-8) 2.7 % BASO % (test code = 706-2) 1.0 % GRAN MAT x10^3(ANC) (test code = 2385708994) 5.43 10*3/uL 1.88-7.09 IMM GRAN x10^3 (test code = 8148380223) 0.00-0.06 LYMPH x10^3 (test code = 731-0) 2.81 10*3/uL 1.32-3.29 MONO x10^3 (test code = 742-7) 0.81 10*3/uL 0.33-0.92 EOS x10^3 (test code = 711-2) 0.25 10*3/uL 0.03-0.39 BASO x10^3 (test code = 704-7) 0.09 10*3/uL 0.01-0.07 H Lab Interpretation (test code = 55559-9) Abnormal [facility] [id number] 16:47:00* Test Item Value Reference Range Interpretation Comme nts POCT PREG (test code = 1605) Negative On board controls acceptable with C Line (test code = 3574) Yes POCT PREG LOT # (test code = 3575) POCT PREG TEST DATE ( test code = 3576) [facility] [id number] 16:47:00* Test Item Value Reference Range Interpretation Comme nts POCT PREG (test code = 1605) Negative On board controls acceptable with C Line (test code = 3574) Yes POCT PREG LOT # (test code = 3575) POCT PREG TEST DATE ( test code = 3576) [facility] [id number] 04:35:00* Test Item Value Reference Range Interpretation Comme nts POCT PREG (test code = 1605) negative On board controls acceptable with C Line (test code = 3574) present POCT PREG LOT # (test code = 3575) [id number] POCT PREG TEST DATE ( test code = 3576) 2023-11-25 Lab Interpretation (test cod e = 96034-4) Normal [facility]ICAL2022-[facility]-24 12:21:00* Test Item Value Reference Range Interpretation Comme nts SURGICAL (test code = SR) R UN DATE: 01/17/22 [facility] Lab PAGE 1 RUN TIME: 1221 Specimen Inquiry RUN USER: INTERFACE P ATIENT: KATRIN PEREZ [facility]: [id number] AGE/SX: 16/F ROOM: RE01/06/22REG DR: Facundo Kwon MD : 03 BED: DIS: STATUS: [facility] TLOC: SPEC #: [id number] RECD: 01/09/22 STATUS: JORD[facility] #: [id number] KI: 01/06/[address] [facility] [address]: Facundo Kwon MD ENTERED: 01/09/22 SP TYPE: SURGICAL OTHR DR: DOES_NOT KNOW ORDERED: 63245/2, 30053, ANATOMIC SPEC COPIES TO: DOES_NOT KNOW Facundo Kwon MD [address] [place] [address] PROCEDURES: 11944 (01/09/22) 45595 (01/10/22-4) TISSUES: A. DUODENUM BIOPSY B. STOMACH BIOPSY/POLYP [...] ON NEXT PAGE R UN DATE: 01/17/22 [place] - Lab PAGE 2 RUN TIME: 1221 Specimen Inquiry RUN USER: INTERFACE S TUSHAR #: [id number] PATIENT: KATRIN PEREZ #[id number] (Continued) GROSS DESCRIPTION (Continued) Technical component excluding immunohistochemistry is performed at [facility], [address] [facility] [place] [address] Technical component of all [facility] [address] [place] [address], [address], [place] [address] Immunohistochemistry: This test was developed and its [...] 01/17/22 1221 END OF REPORT UR HCG [id number] 12:02:00* Test Item Value Reference Range Interpretation Comme nts UR HCG QUAL (test code = HCGQLU) NEGATIVE This HCGQL test is NOT applicable for MALE patients.Check with nurse about probable order error.If Tumor Marker Test needed, nurse should order test "HCGTU"(Test #[id number])
--- NOTE | 2024-08-08 02:28 | ER ---
Nurse's Notes [facility] Name: Lizzie Chase Age: 19 yrs Sex: Female : 2005 Arrival Date: 08/08/2024 Time: 01:38 Bed DX3 Private MD: Diagnosis: Other viral warts;Left ring finger distal phalanx Warts , Multiple warts Presentation: 08/08 01:48 Chief complaint: Patient states: left 4th digit wart, wart medicine makes it get bigger vc1 and hurts. Coronavirus screen: Client denies travel out of the [place] in the last 14 days. At this time, the client does not indicate any symptoms associated with coronavirus-19. Ebola Screen: Patient negative for fever greater than or equal to 101.5 degrees Fahrenheit, and additional compatible Ebola Virus Disease symptoms Patient denies exposure to infectious person. Patient denies travel to an Ebola-affected area in the 21 days before illness onset. No symptoms or risks identified at this time. Initial Sepsis Screen: Does the patient meet any 2 criteria? No. Patient's initial sepsis screen is negative. Does the patient have a suspected source of infection? No. Patient's initial sepsis screen is negative. Risk Assessment: Do you want to hurt yourself or someone else? Patient reports no desire to harm self or others. Onset of symptoms is unknown. Care prior to arrival: None. Activity prior to arrival: None. Mechanism of Injury: No Mechanism of Injury. 01:48 Method Of Arrival: Ambulatory vc1 01:48 Acuity: NACHO 5 vc1 Triage Assessment: 01:52 General: Appears in no apparent distress. uncomfortable, Behavior is calm, cooperative, vc1 appropriate for age. Pain: Complains of pain in left ring finger Pain does not radiate. EENT: No deficits noted. No signs and/or symptoms were reported regarding the EENT system. Neuro: Level of Consciousness is awake, alert, obeys commands, Oriented to person, place, time, situation, Appropriate for age. Cardiovascular: Heart tones S1 S2 present Capillary refill < 3 seconds Patient's skin is warm and dry. Respiratory: Airway is patent Respiratory effort is even, unlabored, Respiratory pattern is regular, symmetrical, Breath sounds are clear bilaterally. GI: No deficits noted. No signs and/or symptoms were reported involving the gastrointestinal system. : No deficits noted. No signs and/or symptoms were reported regarding the genitourinary system. Derm: Skin is intact, is healthy with good turgor, Skin is dry, Skin is normal, Skin temperature is warm Wound noted left ring finger. Musculoskeletal: Circulation, motion, and sensation intact. Range of motion: intact in all extremities. 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 Flu vaccine is not up to date. - Infectious Disease History:: Denies. - Social history:: Smoking status: Patient denies any tobacco usage or history of. Patient uses street drugs, marijuana. - Family history:: not pertinent. Screenin:51 [facility] ED Fall Risk Assessment (Adult) History of falling in the last 3 months, vc1 including since admission No falls in past 3 months (0 pts) Confusion or Disorientation No (0 pts) Intoxicated or Sedated No (0 pts) Impaired Gait No (0 pts) Mobility Assist Device Used No (0 pt) Altered Elimination No (0 pt) Score/Fall Risk Level 0 - 2 = Low Risk Oriented to surroundings, Maintained a safe environment, Educated pt \T\ family on fall prevention, incl call for assistance when getting out of bed. Abuse screen: Denies threats or abuse. Nutritional screening: No deficits noted. Tuberculosis screening: No symptoms or risk factors identified. Vital Signs: 01:48 Weight 77.11 kg; Height 5 ft. 0 in. ; Pain 10/10; vc1 01:53 BP 131 / 81; Pulse 67; Resp 15; Temp 97; Pulse Ox 100% ; vc1 01:48 Body Mass Index 33.20 (77.11 kg, 152.4 cm) vc1 01:48 Pain Scale: Adult vc1 ED Course: 01:40 Patient arrived in ED. [id number] 01:50 Triage completed. vc1 01:51 Arm band placed on right wrist. vc1 01:51 Patient has correct armband on for positive identification. seen in diagnostic chair. vc1 Provided Education on: f/u with PCP. 01:51 No provider procedures requiring assistance completed. Patient did not have IV access vc1 during this emergency room visit. 01:56 Maged Hernandez MD is Attending Physician. sp4 02:27 Efren Fischer MD is Referral Physician. sp4 02:48 Rebeca Feng, RN is Primary Nurse. vc1 Administered Medications: No medications were administered Medication: 01:51 VIS not applicable for this client. vc1 Outcome: 02:28 Discharge ordered by . sp4 02:48 Discharged to home ambulatory, vc1 02:48 Condition: good 02:48 Discharge instructions given to patient, Instructed on discharge instructions, follow up and referral plans. Demonstrated understanding of instructions, follow-up care, 02:48 Patient left the ED. vc1 Signatures: Johnna Rivera jj6 Rebeca Feng, RN RN vc1 Maged Hernandez MD MD sp4
--- NOTE | 2024-08-08 02:29 | EDPHYS ---
Physician Documentation [facility] Name: Lizzie Chase Age: 19 yrs Sex: Female : 2005 Arrival Date: 08/08/2024 Time: 01:38 Bed DX3 Private MD: ED Physician Maged Hernandez HPI: 08/08 01:56 This 19 yrs old Female presents to ER via Ambulatory with complaints of sp4 POSSIBLE FINGER ABSCESS/CYST. 20:21 19-year-old female presents with left ring finger lesions. With ring finger lesions sp4 have been present for the past year and a half. Patient reports distal phalangeal lesions also this is extending into the fingernail . 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 Flu vaccine is not up to date. - Infectious Disease History:: Denies. - Social history:: Smoking status: Patient denies any tobacco usage or history of. Patient uses street drugs, marijuana. - Family history:: not pertinent. ROS: 20:21 Constitutional: Negative for fever, chills, and weight loss, Positive for left ring sp4 finger distal phalangeal lesions 20:21 All other systems are negative, Exam: 20:21 Constitutional: This is a well developed, well nourished patient who is awake, alert, sp4 and in no acute distress. Head/Face: Normocephalic, atraumatic. Eyes: Pupils equal round and reactive to light, extra-ocular motions intact. Lids and lashes normal. Conjunctiva and sclera are not injected. Cornea within normal limits. Periorbital areas with no swelling, redness, or edema. ENT: Nares patent. No nasal discharge, no septal abnormalities noted. Tympanic membranes are normal and external auditory canals are clear. Oropharynx with no redness, swelling, or masses, exudates, or evidence of obstruction, uvula midline. Mucous membranes moist. Neck: Trachea midline, no thyromegaly or masses palpated, and no cervical lymphadenopathy. Supple, full range of motion without nuchal rigidity, or vertebral point tenderness. Chest/axilla: Normal chest wall appearance and motion. Nontender with no deformity. No lesions are appreciated. Cardiovascular: Regular rate and rhythm with a normal S1 and S2. No gallops, murmurs, or rubs. Normal PMI, no JVD. No pulse deficits. Respiratory: Lungs have equal breath sounds bilaterally, clear to auscultation and percussion. No rales, rhonchi or wheezes noted. No increased work of breathing, no retractions or nasal flaring. Abdomen/GI: Soft, with normal bowel sounds. No distension or tympany. No guarding or rebound. No evidence of tenderness throughout. Back: No spinal tenderness. No costovertebral tenderness. Skin: Warm, dry with normal turgor. Normal color with no rashes, no lesions, and no evidence of cellulitis. MS/ Extremity: Pulses equal, no cyanosis. Neurovascular intact. Full, normal range of motion. Positive extensive skin warts to the left Ring finger distal phalanx with extension under the finger nail Neuro: Awake and alert, GCS 15, oriented to person, place, time, and situation. Cranial nerves II-XII grossly intact. Motor strength 5/5 in all extremities. Sensory grossly intact. Vital Signs: 01:48 Weight 77.11 kg; Height 5 ft. 0 in. ; Pain 10/10; vc1 01:53 BP 131 / 81; Pulse 67; Resp 15; Temp 97; Pulse Ox 100% ; vc1 01:48 Body Mass Index 33.20 (77.11 kg, 152.4 cm) vc1 01:48 Pain Scale: Adult vc1 MDM: 02:25 Medical Screening Exam initiated sp4 20:24 Differential diagnosis: closed fracture, contusion, abrasion, tendonitis. Data sp4 reviewed: vital signs, nurses notes. ED course: Patient has significant warts to the left distal ring finger. Patient was explained that she should see plastic surgeon, and this is not the condition that is fixed in the ER . . Administered Medications: No medications were administered Disposition Summary: 08/08/24 02:28 Discharge Ordered Notes: Location: Home sp4 Problem: new sp4 Symptoms: have improved sp4 Condition: Stable sp4 Diagnosis - Other viral warts sp4 - Left ring finger distal phalanx Warts , Multiple warts sp4 Followup: sp4 - With: Efren Fischer MD - When: 7 - 10 days - Reason: Recheck today's complaints Discharge Instructions: - Discharge Summary Sheet sp4 - Warts, [id number] sp4 Forms: - Patient Portal Instructions sp4 Signatures: Rebeca Feng RN RN vc1 Maged Hernandez MD MD sp4
[2024-08-08 03:05] VITALS: BP 131/81; TEMP 97; O2SAT 100
== END 2024-08-08 02:48 | disposition home or self-care (01) ==
LOC: ER 01:38
DX: B07.8 Other viral warts (principal)
CPT/HCPCS: 99282

== ENCOUNTER 2024-08-11 14:53 | Emergency (ER) | payer OTHER ==
--- OUTSIDE RECORDS SUMMARY | 2024-08-11 14:59 | XMS REPORT | Continuity of Care Document ---
Author Name Unknown Address [address] [place] [address] [facility] thconnect Address [address] [place] [address] Care Team Providers Care School Counselor Name Role Phone TAPANLIDIA Sharri Primary Care Physician Vannesa LES Calzada Attending Clinician UnavailPHAN Charlton Attending Clinician Unavailable Kristian TERRELL Attending Clinician Unavailable Kristian TERRELL Attending Clinician Unavailable Kristian Denney Attending Clinician [phone] ALAN BAEZA Attending Clinician Unavailable GERARD NOBLES Attending Clinician Unavailable GERARD NOBLES Attending Clinician Unavailable CATRACHITA NGUYEN Attending Clinician Unavail able Doctor Unassigned, Kamrar Attending Clinician U ROBERTO Alegria Attending Clinician Unavailable Roberto Griffith MD Attending Clinician [phone] Sandi Cardozo NP Attending Clinician [phone] VIANEY GARCIA Attending Clinician Unavailable FAROOQ DAVIS Attending Clinician Unavailable Farooq Barnett Attending Clinician [phone] Unknown, Attending Attending Clinician Unavailab JOYCE Kumar Attending Clinician UnavailJoyce Fuentes CNM Attending Clinician [phone] WENDY JANE Attending Clinician Unavaila WENDY Fowler Attending Clinician Unavaila malachi CAMPOS, ALEXIS S Attending Clinician Unavailable Campos PAC, Alexis S Attending Clinician [phone] ANNABELLE JO Attending Clinician Unavailable BANDAR CASTILLO Attending Clinician Unavailable Bandar Castillo MD Attending Clinician [phone] Facundo Kwon Attending Clinician Unavailable Jacques DORAN, Mayra Tony Attending Clinician + [phone] MAYRA SAAVEDRA Attending Clinician Unavailab RENETTA Lam S Attending Clinician Unavailable Renetta Clark S Attending Clinician [phone] , [facility] Attending Clinician Unavailable Annabelle Jo PA-C Attending Clinician [phone] Nurse, [facility] Attending Clinician Un available Vianey Garcia MD Attending Clinician [phone] Samanta Petty MD Attending Clinician [phone] Teri RN, Lucrecia Martínez Attending Clinician Unavailable Belinda Hall DO Attending Clinician [phone] Les Huggins MD Attending Clinician [phone] Lab, [facility] Fam Pob I Attending Clinician Unavailab Page Gorman Attending Clinician [phone] PAGE RED Attending Clinician Unavailable PANKAJ REESE Attending Clinician UnavailMariaa Mccormack NP Attending Clinician [phone] MARIAA RAE Attending Clinician Unavailable LES HUGGINS Admitting Clinician UnavailSANDI Vaughan Admitting Clinician Unavailable KNOW, DOES_NOT Admitting Clinician Unavailable Les Huggins MD Admitting Clinician [phone] BELINDA HALL Admitting Clinician Unavailab niko Payers Payer Name Policy Type Policy Number Effective Date Expirati on Date Source [facility] [id number] 00:00:00 [employer] [id number] 2023 00:00:00 [facility] [place] [facility] [id number] 00:00:00 [facility] YADYALEXUSSAI DURANPapito COPAY FOCUS [id number] 2023 00:00:00 Problems Condition Name Condition Details Condition Category Status Onset Date Resolution Date Last Treatment Date Treating Clinician Comments Source Obesity (BMI 30-39.9) Obesity (BMI 30-39.9) Disease Active 12-30 00:00: 00 [facility] BMI 29.0-29.9, adult BMI 29.0-29.9, adult Disease Active 12-29 00:00: 00 [facility] Menorrhagi a with irregular cycle Menorrhagi a with irregular cycle Disease Active 11-09 00:00: 00 [facility] Encounter for other general counseling or advice on contracept ion Encounter for other general counseling or advice on contracept ion Disease Resolve d 5-05 00:00: 00 2022-12-30 00:00:00 2022-12-30 11:00:39 [facility] BMI 29.0-29.9, adult BMI 29.0-29.9, adult Disease Resolve d 5-05 00:00: 00 2022-12-30 00:00:00 2022-12-30 11:00:33 [facility] Vitamin D deficiency Vitamin D deficiency Disease Resolve d -16 00:00: 00 2022-12-30 00:00:00 2022-12-30 11:00:56 [facility] Depo-Prove ra contracept kamran status Depo-Prove ra contracept kamran status Disease Resolve d 3-16 00:00: 00 2022-12-30 00:00:00 2022-12-30 11:00:37 [facility] Acute medial meniscus tear, left, subsequent encounter Acute medial meniscus tear, left, subsequent encounter Disease Resolve d 2020-0 9-22 00:00: 00 2022-12-30 00:00:00 2022-12-30 11:00:54 Overview: Formattin g of this note might be different from the original. Added automatic ally from request for surgery [id number] [facility] Allergies, Adverse Reactions, Alerts Allergy Name Allergy Type Status Severity Reaction(s) Onset Date Inactive Date Treating Clinician Comments Source No Known Allergie s DA Active U 5-13 00:00: 00 [facility] NO KNOWN ALLERGIE S Drug Class Active [facility] Social History Social Habit Start Date Stop Date Quantity Comments [facility] SDOH Alcohol Comment [place] [facility] Alcoholic beverage intake 2023-10-26 00:00:00 2023-10-26 00:00:00 Lifetime non-drinker (finding) [facility] Alcohol intake 2023-10-26 00:00:00 2023-10-26 00:00:00 Lifetime non-drinker (finding) [facility] Exposure to SARS-CoV-2 (event) 2022-12-26 00:00:00 2023-01-05 08:00:00 Not sure [facility] Tobacco use and exposure 2022-12-27 00:00:00 2022-12-27 00:00:00 Smokeless tobacco non-user [facility] History of Social function 2022-12-27 00:00:00 2022-12-27 00:00:00 [facility] History SDOH Alcohol Frequency 2020-04-05 00:00:00 2020-04-05 00:00:00 1 [facility] History SDOH Alcohol Std Drinks 2020-04-05 00:00:00 2020-04-05 00:00:00 99 [facility] History SDOH Alcohol Binge 2020-04-05 00:00:00 2020-04-05 00:00:00 1 [facility] Sex assigned at 2003 00:00:00 2003 00:00:00 [facility] Smoking Status Start Date Stop Date Source Never smoked tobacco [facility] Medications Ordered Medication Name Filled Medication Name Start Date Stop Date Current Medication? Ordering Clinician Indication Dosage Frequency Signature (SIG) Comments Components Source cefdinir 300 mg capsule 2023-08 00:00: 00 06-09 04:59 :00 Yes [id number] 300mg Take 1 capsule by mouth every 12 (twelve) hours for 10 days. [facility] ketorolac (TORADOL) injection 30 mg 10-26 06:00: 00 10-26 05:23 :00 No 30mg 30 mg, Slow IV Push, ONCE, 1 dose, On 10/27/23 at 0000, Routine [facility] cefTRIAXone (ROCEPHIN) 1,000 mg in NaCl 0.9% (NS) 100 mL MINI-BAG 10-26 05:15: 00 10-26 05:52 :00 No 1000mg 1,000 mg, IV Piggyback, ONCE, 1 dose, On Sun10/26/23 at 2315, Administer over 30 Minutes, 100 mL
Reas on for Anti-Infec tive: Documented Infection< br>Documen christiano Infection Site: Urine
D uration of Therapy: Other (see Comments) [facility] cefdinir 300 mg capsule 10-25 00:00: 00 11-02 05:59 :00 No [id number] 300mg Take 1 capsule by mouth in the morning and 1 capsule in the evening. Do all this for 7 days. [facility] methylPREDN ISolone 4 mg tablets 09-20 00:00: 00 Yes [id number] Take by mouth SEE-INSTRU CTIONS. follow package directions [facility] amoxicillin -clavulanat e 875-125 mg per tablet 09-20 00:00: 00 Yes [id number] 1{tbl} Take 1 tablet by mouth every 12 (twelve) hours. [facility] iopamidol (ISOVUE 370-500 mL) injection 100 mL 2022-08 03:30: 00 07-17 03:30 :00 No [id number] 100mL 100 mL, Intravenou s, ONCE, 1 dose, On 11/20/23 at 2130, Routine [facility] methylPREDN ISolone 4 mg tablets 2022-08 00:00: 00 Yes [id number] Take by mouth SEE-INSTRU CTIONS. follow package directions [facility] clindamycin 300 mg capsule 2022-08 00:00: 00 07-27 05:59 :00 No [id number] 300mg Take 1 capsule by mouth 4 (four) times daily for 10 days. [facility] cefdinir 300 mg capsule 05-17 00:00: 00 05-28 04:59 :00 No [id number] 600mg Take 2 capsules by mouth in the morning for 10 days. [facility] acetaminoph en (TYLENOL) tablet 650 mg 01-05 13:15: 00 01-05 13:14 :00 No 650mg 650 mg, Oral, ONCE, 1 dose, On Sun01/05/23 at 0815, ALLI [facility] amoxicillin 500 mg capsule 01-05 00:00: 00 Yes [id number] 500mg Take 1 capsule by mouth in the morning and 1 capsule at noon and 1 capsule in the evening. [facility] ondansetron 4 mg disintegrat ing tablet 01-05 00:00: 00 Yes [id number] 4mg Take 1 tablet by mouth every 4 (four) hours as needed for Nausea and Vomiting (N/V). [facility] naproxen 500 mg tablet 01-05 00:00: 00 01-16 04:59 :00 No [id number] 500mg Take 1 tablet by mouth in the morning and 1 tablet in the evening. Take with meals. Do all this for 10 days. [facility] claudia ramsayestrad ioL-iron (MICROGESTI N FE) 1.5 mg-30 mcg (21)/75 mg (7) per tablet 12-27 00:00: 00 Yes [id number] 1{tbl} Take 1 tablet by mouth in the morning. [facility] naproxen (NAPROSYN) 500 mg tablet 09-27 00:00: 00 12-27 00:00 :00 No [id number] 500mg Take 1 tablet by mouth in the morning and 1 tablet in the evening. Take with meals. [facility] ibuprofen (IBU) tablet 800 mg 09-25 04:30: 00 09-25 04:33 :00 No 800mg 800 mg, Oral, ONCE, 1 dose, On 09/24/22 at 2230, ALLI [facility] No known medications 5-05 16:08: 37 No [facility] pantoprazol e 40 mg EC tablet 4-11 00:00: 00 12-29 00:00 :00 No 40mg Take 40 mg by mouth daily. [facility] metroNIDAZO LE 500 mg tablet -23 00:00: 00 12-29 00:00 :00 No [id number] 500mg Take 1 tablet by mouth every 12 (twelve) hours. [facility] ergocalcife rol, vitamin d2, 1,250 mcg (50,000 unit) capsule 1-15 00:00: 00 12-29 00:00 :00 No [id number] 68535K Take 1 capsule by mouth weekly. [facility] ranitidine (ZANTAC) 150 mg tablet 2 00:00: 00 12-29 00:00 :00 No 150mg Take 1 tablet by mouth 2 (two) times daily. Follow up with your MD for further evaluation and treatment. [facility] Immunizations Ordered Immunization Name Filled Immunization Name Date Status Comments Source HPV9 2022-12-27 00:00:00 Completed HPV9 2022-12-27 00:00:00 Completed [facility] HPV9 2022-12-27 00:00:00 Completed [facility] HPV9 2022-12-27 00:00:00 Completed [facility] Meningococcal Polysaccharide (groups A, C, Y and W-135) conjugate vaccine (MCV4P) 2020-03-30 00:00:00 Completed Meningococcal Polysaccharide (groups A, C, Y and W-135) conjugate vaccine (MCV4P) 2020-03-30 00:00:00 Completed [facility] Meningococcal Polysaccharide (groups A, C, Y and W-135) conjugate vaccine (MCV4P) 2020-03-30 00:00:00 Completed [facility] Meningococcal Polysaccharide (groups A, C, Y and W-135) conjugate vaccine (MCV4P) 2020-03-30 00:00:00 Completed [facility] HPV9 2016-04-17 00:00:00 Completed Meningococcal Polysaccharide (groups A, C, Y and W-135) conjugate vaccine (MCV4P) 2016-04-17 00:00:00 Completed TDAP 2016-04-17 00:00:00 Completed HPV9 2016-04-17 00:00:00 Completed [facility] Meningococcal Polysaccharide (groups A, C, Y and W-135) conjugate vaccine (MCV4P) 2016-04-17 00:00:00 Completed [facility] TDAP 2016-04-17 00:00:00 Completed [facility] HPV9 2016-04-17 00:00:00 Completed [facility] Meningococcal Polysaccharide (groups A, C, Y and W-135) conjugate vaccine (MCV4P) 2016-04-17 00:00:00 Completed [facility] TDAP 2016-04-17 00:00:00 Completed [facility] HPV9 2016-04-17 00:00:00 Completed [facility] Meningococcal Polysaccharide (groups A, C, Y and W-135) conjugate vaccine (MCV4P) 2016-04-17 00:00:00 Completed [facility] TDAP 2016-04-17 00:00:00 Completed [facility] HEPATITIS A 2009-06-30 00:00:00 Completed Varicella (varivax)(chicken pox) 2009-06-30 00:00:00 Completed HEPATITIS A 2009-06-30 00:00:00 Completed [facility] Varicella (varivax)(chicken pox) 2009-06-30 00:00:00 Completed [facility] HEPATITIS A 2009-06-30 00:00:00 Completed [facility] Varicella (varivax)(chicken pox) 2009-06-30 00:00:00 Completed [facility] HEPATITIS A 2009-06-30 00:00:00 Completed [facility] Varicella (varivax)(chicken pox) 2009-06-30 00:00:00 Completed [facility] DTaP, Unspecified Formulation 2007-06-10 00:00:00 Completed HEPATITIS A 2007-06-10 00:00:00 Completed Hib-HbOC 2007-06-10 00:00:00 Completed MMR 2007-06-10 00:00:00 Completed Pneumococcal 7 Conjugate, PCV7 (Prevnar7) 2007-06-10 00:00:00 Completed IPV 2007-06-10 00:00:00 Completed DTaP, Unspecified Formulation 2007-06-10 00:00:00 Completed [facility] HEPATITIS A 2007-06-10 00:00:00 Completed [facility] Hib-HbOC 2007-06-10 00:00:00 Completed [facility] MMR 2007-06-10 00:00:00 Completed [facility] Pneumococcal 7 Conjugate, PCV7 (Prevnar7) 2007-06-10 00:00:00 Completed [facility] IPV 2007-06-10 00:00:00 Completed [facility] DTaP, Unspecified Formulation 2007-06-10 00:00:00 Completed [facility] HEPATITIS A 2007-06-10 00:00:00 Completed [facility] Hib-HbOC 2007-06-10 00:00:00 Completed [facility] MMR 2007-06-10 00:00:00 Completed [facility] Pneumococcal 7 Conjugate, PCV7 (Prevnar7) 2007-06-10 00:00:00 Completed [facility] IPV 2007-06-10 00:00:00 Completed [facility] DTaP, Unspecified Formulation 2007-06-10 00:00:00 Completed [facility] HEPATITIS A 2007-06-10 00:00:00 Completed [facility] Hib-HbOC 2007-06-10 00:00:00 Completed [facility] MMR 2007-06-10 00:00:00 Completed [facility] Pneumococcal 7 Conjugate, PCV7 (Prevnar7) 2007-06-10 00:00:00 Completed [facility] IPV 2007-06-10 00:00:00 Completed [facility] DTaP, Unspecified Formulation 2004-03-30 00:00:00 Completed [facility] HIB 4 Dose Schedule 2004-03-30 00:00:00 Completed MMR 2004-03-30 00:00:00 Completed IPV 2004-03-30 00:00:00 Completed Varicella (varivax)(chicken pox) 2004-03-30 00:00:00 Completed DTaP, Unspecified Formulation 2004-03-30 00:00:00 Completed [facility] HIB 4 Dose Schedule 2004-03-30 00:00:00 Completed [facility] MMR 2004-03-30 00:00:00 Completed [facility] IPV 2004-03-30 00:00:00 Completed [facility] Varicella (varivax)(chicken pox) 2004-03-30 00:00:00 Completed [facility] DTaP, Unspecified Formulation 2004-03-30 00:00:00 Completed [facility] HIB 4 Dose Schedule 2004-03-30 00:00:00 Completed [facility] MMR 2004-03-30 00:00:00 Completed [facility] IPV 2004-03-30 00:00:00 Completed [facility] Varicella (varivax)(chicken pox) 2004-03-30 00:00:00 Completed [facility] DTaP, Unspecified Formulation 2004-03-30 00:00:00 Completed [facility] HIB 4 Dose Schedule 2004-03-30 00:00:00 Completed [facility] MMR 2004-03-30 00:00:00 Completed [facility] IPV 2004-03-30 00:00:00 Completed [facility] Varicella (varivax)(chicken pox) 2004-03-30 00:00:00 Completed [facility] DTaP, Unspecified Formulation 2003 00:00:00 Completed Hep B, Adol or Pedi Dosage 2003 00:00:00 Completed HIB 4 Dose Schedule 2003 00:00:00 Completed Pneumococcal 7 Conjugate, PCV7 (Prevnar7) 2003 00:00:00 Completed IPV 2003 00:00:00 Completed DTaP, Unspecified Formulation 2003 00:00:00 Completed [facility] Hep B, Adol or Pedi Dosage 2003 00:00:00 Completed [facility] HIB 4 Dose Schedule 2003 00:00:00 Completed [facility] Pneumococcal 7 Conjugate, PCV7 (Prevnar7) 2003 00:00:00 Completed [facility] IPV 2003 00:00:00 Completed [facility] DTaP, Unspecified Formulation 2003 00:00:00 Completed [facility] Hep B, Adol or Pedi Dosage 2003 00:00:00 Completed [facility] HIB 4 Dose Schedule 2003 00:00:00 Completed [facility] Pneumococcal 7 Conjugate, PCV7 (Prevnar7) 2003 00:00:00 Completed [facility] IPV 2003 00:00:00 Completed [facility] DTaP, Unspecified Formulation 2003 00:00:00 Completed [facility] Hep B, Adol or Pedi Dosage 2003 00:00:00 Completed [facility] HIB 4 Dose Schedule 2003 00:00:00 Completed [facility] Pneumococcal 7 Conjugate, PCV7 (Prevnar7) 2003 00:00:00 Completed [facility] IPV 2003 00:00:00 Completed [facility] DTaP, Unspecified Formulation 2003 00:00:00 Completed Hep B, Adol or Pedi Dosage 2003 00:00:00 Completed HIB 4 Dose Schedule 2003 00:00:00 Completed Pneumococcal 7 Conjugate, PCV7 (Prevnar7) 2003 00:00:00 Completed IPV 2003 00:00:00 Completed DTaP, Unspecified Formulation 2003 00:00:00 Completed [facility] Hep B, Adol or Pedi Dosage 2003 00:00:00 Completed [facility] HIB 4 Dose Schedule 2003 00:00:00 Completed [facility] Pneumococcal 7 Conjugate, PCV7 (Prevnar7) 2003 00:00:00 Completed [facility] IPV 2003 00:00:00 Completed [facility] DTaP, Unspecified Formulation 2003 00:00:00 Completed [facility] Hep B, Adol or Pedi Dosage 2003 00:00:00 Completed [facility] HIB 4 Dose Schedule 2003 00:00:00 Completed [facility] Pneumococcal 7 Conjugate, PCV7 (Prevnar7) 2003 00:00:00 Completed [facility] IPV 2003 00:00:00 Completed [facility] DTaP, Unspecified Formulation 2003 00:00:00 Completed [facility] Hep B, Adol or Pedi Dosage 2003 00:00:00 Completed [facility] HIB 4 Dose Schedule 2003 00:00:00 Completed [facility] Pneumococcal 7 Conjugate, PCV7 (Prevnar7) 2003 00:00:00 Completed [facility] IPV 2003 00:00:00 Completed [facility] Hep B, Adol or Pedi Dosage 2003 00:00:00 Completed Hep B, Adol or Pedi Dosage 2003 00:00:00 Completed [facility] Hep B, Adol or Pedi Dosage 2003 00:00:00 Completed [facility] Hep B, Adol or Pedi Dosage 2003 00:00:00 Completed [facility] DTaP, Unspecified Formulation Unknown Completed [facility] HEPATITIS A Unknown Completed [facility] Hep B, Adol or Pedi Dosage Unknown Completed [facility] Hib-HbOC Unknown Completed [facility] HIB 4 Dose Schedule Unknown Completed [facility] HPV9 Unknown Completed [facility] Meningococcal Polysaccharide (groups A, C, Y and W-135) conjugate vaccine (MCV4P) Unknown Completed [facility] MMR Unknown Completed [facility] Pneumococcal 7 Conjugate, PCV7 (Prevnar7) Unknown Completed [facility] IPV Unknown Completed [facility] Varicella (varivax)(chicken pox) Unknown Completed [facility] TDAP Unknown Completed [facility] DTaP, Unspecified Formulation Unknown Completed [facility] HEPATITIS A Unknown Completed [facility] Hep B, Adol or Pedi Dosage Unknown Completed [facility] Hib-HbOC Unknown Completed [facility] HIB 4 Dose Schedule Unknown Completed [facility] HPV9 Unknown Completed [facility] Meningococcal Polysaccharide (groups A, C, Y and W-135) conjugate vaccine (MCV4P) Unknown Completed [facility] MMR Unknown Completed [facility] Pneumococcal 7 Conjugate, PCV7 (Prevnar7) Unknown Completed [facility] IPV Unknown Completed [facility] Varicella (varivax)(chicken pox) Unknown Completed [facility] TDAP Unknown Completed [facility] DTaP, Unspecified Formulation Unknown Completed [facility]ITIS A [facility], Adol or Pedi Dosage Unknown Completed [facility] Hib-HbOC Unknown Completed [facility] HIB 4 Dose Schedule Unknown Completed [facility] HPV9 Unknown Completed [facility] Meningococcal Polysaccharide (groups A, C, Y and W-135) conjugate vaccine (MCV4P) Unknown Completed [facility] MMR Unknown Completed [facility] Pneumococcal 7 Conjugate, PCV7 (Prevnar7) Unknown Completed [facility] IPV Unknown Completed [facility] Varicella (varivax)(chicken pox) Unknown Completed [facility] TDAP Unknown Completed [facility] DTaP, Unspecified Formulation Unknown Completed [facility] HEPATITIS A Unknown Completed [facility] Hep B, Adol or Pedi Dosage Unknown Completed [facility] Hib-HbOC Unknown Completed [facility] HIB 4 Dose Schedule Unknown Completed [facility] HPV9 Unknown Completed [facility] Meningococcal Polysaccharide (groups A, C, Y and W-135) conjugate vaccine (MCV4P) Unknown Completed [facility] MMR Unknown Completed [facility] Pneumococcal 7 Conjugate, PCV7 (Prevnar7) Unknown Completed [facility] IPV Unknown Completed [facility] Varicella (varivax)(chicken pox) Unknown Completed [facility] TDAP Unknown Completed [facility] DTaP, Unspecified Formulation Unknown Completed [facility] HEPATITIS A Unknown Completed [facility] Hep B, Adol or Pedi Dosage Unknown Completed [facility] Hib-HbOC Unknown Completed [facility] HIB 4 Dose Schedule Unknown Completed [facility] HPV9 Unknown Completed [facility] Meningococcal Polysaccharide (groups A, C, Y and W-135) conjugate vaccine (MCV4P) Unknown Completed [facility] MMR Unknown Completed [facility] Pneumococcal 7 Conjugate, PCV7 (Prevnar7) Unknown Completed [facility] IPV Unknown Completed [facility] Varicella (varivax)(chicken pox) Unknown Completed [facility] TDAP Unknown Completed [facility] Vital Signs Vital Name Observation Time Observation Value Comments S ource Systolic blood pressure 2024-05-29 21:17:00 135 mm[Hg] [facility] Diastolic blood pressure 2024-05-29 21:17:00 91 mm[Hg] [facility] Heart rate 2024-05-29 21:17:00 102 /min Unive [facility] Body temperature 2024-05-29 21:17:00 36.89 [place] [facility] Respiratory rate 2024-05-29 21:17:00 16 /min [facility] Body height 2024-05-29 21:17:00 152.4 cm [facility] Body weight 2024-05-29 21:17:00 79.833 kg [facility] BMI 2024-05-29 21:17:00 34.37 kg/m2 [facility] Oxygen saturation in Arterial blood by Pulse oximetry 2024-05-29 21:17:00 100 /min [facility] Systolic blood pressure 2023-10-27 03:54:00 135 mm[Hg] [facility] Diastolic blood pressure 2023-10-27 03:54:00 103 mm[Hg] [facility] Heart rate 2023-10-27 03:54:00 95 /min Unive [facility] Body temperature 2023-10-27 03:54:00 36.72 [place] [facility] Respiratory rate 2023-10-27 03:54:00 18 /min [facility] Body height 2023-10-27 03:54:00 152.4 cm [facility] Body weight 2023-10-27 03:54:00 70.761 kg [facility] BMI 2023-10-27 03:54:00 30.47 kg/m2 [facility] Oxygen saturation in Arterial blood by Pulse oximetry 2023-10-27 03:54:00 100 /min [facility] Systolic blood pressure 2023-09-21 04:15:00 120 mm[Hg] [facility] Diastolic blood pressure 2023-09-21 04:15:00 68 mm[Hg] [facility] Heart rate 2023-09-21 04:15:00 93 /min Un[facility] Body temperature 2023-09-21 04:15:00 36.89 [place] [facility] Respiratory rate 2023-09-21 04:15:00 16 /min [facility] Body height 2023-09-21 04:15:00 152.4 cm [facility] Body weight 2023-09-21 04:15:00 70.761 kg [facility] BMI 2023-09-21 04:15:00 30.47 kg/m2 [facility] Oxygen saturation in Arterial blood by Pulse oximetry 2023-09-21 04:15:00 100 /min [facility] Systolic blood pressure 2023-07-17 03:00:00 122 mm[Hg] [facility] Diastolic blood pressure 2023-07-17 03:00:00 86 mm[Hg] [facility] Heart rate 2023-07-17 03:00:00 73 /min [facility] Respiratory rate 2023-07-17 03:00:00 16 /min [facility] Oxygen saturation in Arterial blood by Pulse oximetry 2023-07-17 03:00:00 100 /min [facility] Body weight 2023-07-17 00:43:00 69.854 kg [facility] BMI 2023-07-17 00:43:00 30.08 kg/m2 [facility] Body temperature 2023-07-17 00:43:00 36.78 [place] [facility] Body height 2023-07-17 00:43:00 152.4 cm [facility] Systolic blood pressure 2023-05-17 19:58:00 112 mm[Hg] [facility] Diastolic blood pressure 2023-05-17 19:58:00 76 mm[Hg] [facility] Heart rate 2023-05-17 19:58:00 71 /min [facility] Body temperature 2023-05-17 19:58:00 36.61 [place] [facility] Respiratory rate 2023-05-17 19:58:00 16 /min [facility] Body height 2023-05-17 19:58:00 152.4 cm [facility] Body weight 2023-05-17 19:58:00 66.225 kg [facility] BMI 2023-05-17 19:58:00 28.51 kg/m2 [facility] Oxygen saturation in Arterial blood by Pulse oximetry 2023-05-17 19:58:00 98 /min [facility] Body temperature 2023-01-05 14:10:13 37.72 [place] [facility] Systolic blood pressure 2023-01-05 14:00:00 119 mm[Hg] [facility] Diastolic blood pressure 2023-01-05 14:00:00 79 mm[Hg] [facility] Heart rate 2023-01-05 14:00:00 89 /min [facility] Respiratory rate 2023-01-05 14:00:00 15 /min [facility] Oxygen saturation in Arterial blood by Pulse oximetry 2023-01-05 14:00:00 96 /min [facility] Body height 2023-01-05 13:02:00 152.4 cm [facility] Body weight 2023-01-05 13:02:00 72.576 kg [facility] BMI 2023-01-05 13:02:00 31.25 kg/m2 [facility] Systolic blood pressure 2022-12-27 16:46:00 105 mm[Hg] [facility] Diastolic blood pressure 2022-12-27 16:46:00 70 mm[Hg] [facility] Heart rate 2022-12-27 16:46:00 71 /min Unive [facility] Body temperature 2022-12-27 16:46:00 36.78 [place] [facility] Respiratory rate 2022-12-27 16:46:00 18 /min [facility] Body height 2022-12-27 16:46:00 152.4 cm [facility] Body weight 2022-12-27 16:46:00 73.539 kg [facility] BMI 2022-12-27 16:46:00 31.66 kg/m2 [facility] Systolic blood pressure 2022-09-28 02:27:00 133 mm[Hg] [facility] Diastolic blood pressure 2022-09-28 02:27:00 91 mm[Hg] [facility] Heart rate 2022-09-28 02:27:00 94 /min Unive [facility] Body temperature 2022-09-28 02:27:00 37.39 [place] [facility] Respiratory rate 2022-09-28 02:27:00 16 /min [facility] Body height 2022-09-28 02:27:00 152.4 cm [facility] Body weight 2022-09-28 02:27:00 68.13 kg [facility] BMI 2022-09-28 02:27:00 29.33 kg/m2 [facility] Oxygen saturation in Arterial blood by Pulse oximetry 2022-09-28 02:27:00 100 /min [facility] Systolic blood pressure 2022-09-25 03:45:00 124 mm[Hg] [facility] Diastolic blood pressure 2022-09-25 03:45:00 79 mm[Hg] [facility] Heart rate 2022-09-25 03:45:00 81 /min Un[facility] Body temperature 2022-09-25 03:45:00 36.89 [place] [facility] Respiratory rate 2022-09-25 03:45:00 15 /min [facility] Body height 2022-09-25 03:45:00 152.4 cm [facility] Body weight 2022-09-25 03:45:00 68.04 kg [facility] BMI 2022-09-25 03:45:00 29.29 kg/m2 [facility] Oxygen saturation in Arterial blood by Pulse oximetry 2022-09-25 03:45:00 100 /min [facility] Systolic blood pressure 2021-12-29 20:04:00 134 mm[Hg] [facility] Diastolic blood pressure 2021-12-29 20:04:00 86 mm[Hg] [facility] Heart rate 2021-12-29 20:04:00 76 /min [facility] Body temperature 2021-12-29 20:04:00 36.94 [place] [facility] Respiratory rate 2021-12-29 20:04:00 18 /min [facility] Body height 2021-12-29 20:04:00 152.4 cm [facility] Body weight 2021-12-29 20:04:00 68.856 kg [facility] BMI 2021-12-29 20:04:00 29.65 kg/m2 [facility] Body mass index (BMI) [Percentile] Per age and sex 2021-12-29 20:04:00 93.49 % [facility] Procedures Procedure Date / Time Performed Performing Clinician Source URINALYSIS 2024-05-29 21:20:00 Kristian Terrell [facility] POCT TEST 2024-05-29 21:20:00 Kristian Terrell [facility] POCT TEST 2023-10-27 04:27:00 Darion Nobles [facility] TEST, SERUM 2023-10-27 04:26:00 Lory Nobles [facility] COMP. METABOLIC PANEL (64501) 2023-10-27 04:26:00 Gerard Nobles [facility] CBC WITH DIFF 2023-10-27 04:26:00 Gerard Nobles [facility] URINALYSIS 2023-10-27 04:26:00 [facility] CONSENT/REFUSAL FOR DIAGNOSIS AND TREATMENT 2023-10-27 03:50:18 Doctor Unassigned, Kamrar [facility] ASSIGNMENT OF BENEFITS 2023-09-28 16:03:04 Docto r Unassigned, Kamrar [facility] NOTICE OF PRIVACY PRACTICES 2023-09-21 04:06:10 Doctor Unassigned, Kamrar [facility] CONSENT/REFUSAL FOR DIAGNOSIS AND TREATMENT 2023-09-21 04:05:29 Doctor Unassigned, Kamrar [facility] RAPID STREP SCREEN FOR GROUP A 2023-07-17 03:07:00 Roberto Griffith [facility] POCT TEST 2023-07-17 01:53:00 Marcelina Cardozo [facility] COMP. METABOLIC PANEL (50174) 2023-07-17 01:51:00 Sandi Cardozo [facility] CBC WITH DIFF 2023-07-17 01:51:00 Sandi Cardozo [facility] URINALYSIS 2023-07-17 01:51:00 Sandi Cardozo [facility] EBV-MONONUCLEOSIS SCREEN 2023-07-17 01:51:00 Roberto Griffith [facility] CONSENT/REFUSAL FOR DIAGNOSIS AND TREATMENT 2023-07-17 00:37:35 Doctor Unassigned, Kamrar [facility] POCT TEST 2023-05-17 20:06:00 Farooq Davis [facility] POCT URINALYSIS 2023-05-17 20:00:00 Farooq Davis [facility] RAPID STREP SCREEN FOR GROUP A 2023-01-05 13:18:00 Roberto Griffith [facility] RAPID INFLUENZA A/B 2023-01-05 13:09:00 Aminah Griffith [facility] COVID-19 (ID NOW RAPID TESTING) 2023-01-05 13:09:00 Roberto Griffith [facility] THYROID STIMULATING HORMONE 2022-12-27 17:10:00 Joyce Lopez [facility] CBC WITH DIFF 2022-12-27 17:10:00 Joyce Lopez [facility] GLYCOSYLATED HEMOGLOBIN (A1C) 2022-12-27 17:10:00 Joyce Lopez [facility] RUBELLA SCREEN IGG 2022-12-27 17:10:00 Gretchen Lopez [facility] HCV ANTIBODY 2022-12-27 17:10:00 [facility] CHLAMYDIA AMPLIFIED ASSAY 2022-12-27 17:10:00 Joyce Lopez [facility] HIV 1/2 AG-AB WITH REFLEX 2022-12-27 17:10:00 Joyce Lopez [facility] SYPHILIS IGG/IGM 2022-12-27 17:10:00 Joyce Lopez [facility] GARDASIL 9 (HPV 9V) VACCINE 2022-12-27 16:53:08 Joyce Lopez [facility] POCT TEST 2022-12-27 16:47:00 Vignesh Lopez [facility] ASSIGNMENT OF BENEFITS 2022-12-27 15:53:31 Docto r Unassigned, Kamrar [facility] CONSENT/REFUSAL FOR DIAGNOSIS AND TREATMENT 2022-09-28 02:20:10 Doctor Unassigned, Kamrar [facility] POCT TEST 2022-09-25 04:35:00 Bandar Castillo [facility] NOTICE OF PRIVACY PRACTICES 2022-09-25 03:45:44 Doctor Unassigned, Kamrar [facility] CONSENT/REFUSAL FOR DIAGNOSIS AND TREATMENT 2022-09-25 03:44:56 Doctor Unassigned, Kamrar [facility] Encounters Start Date/Time End Date/Time Encounter Type Admission Type Attending Clinicians Care Facility Care Department Encounter ID Source 2021-06-26 08:58:39 Emergency [facility] [id number] [facility] 2021-06-24 18:43:46 Outpatient LES HUGGINS [facility] [id number] [facility] 2024-07-28 09:45:00 2024-07-28 09:45:00 Outpatient PHAN GARAY [facility] [id number] [facility] 2024-07-28 09:07:05 2024-07-28 09:07:05 Outpatient [facility] [id number] Marquis Hart 2024-05-29 16:19:00 2024-05-29 17:53:00 Emergency X Kristian TERRELL AJAY, K [facility] ERT [id number] [facility] 2024-05-29 16:19:00 2024-05-29 17:53:00 Emergency Kristian Terrell Jordana [facility] 1.2840.114 350.1.13.10 4.2.7.2.686 [id number] [facility] 2023-11-29 15:30:00 2023-11-29 15:30:00 Outpatient ALAN BAEZA [id number] Yady López 2023-10-26 21:57:00 2023-10-26 23:58:00 Emergency X ROMY[facility] [id number] [facility] 2023-10-26 21:57:00 2023-10-26 23:58:00 Emergency Gerard Nobles [facility] 1.2840.114 350.1.13.10 4.2.7.2.686 [id number] [facility] 2023-10-16 15:53:57 2023-10-16 15:53:57 Outpatient [facility] [id number] Marquis Hart 2023-09-28 10:15:00 2023-09-28 10:15:00 Outpatient R CATRACHITA NGUYEN [facility] [id number] [facility] 2023-09-28 00:00:00 2023-09-28 00:00:00 Orders Only Doctor Unassigned, Kamrar [facility] 1.2.840.114 350.1.13.10 4.2.7.2.686 [id number] [facility] 2023-09-20 22:18:00 2023-09-20 23:14:00 Emergency X ROBERTO GRIFFITH [facility] ERT [id number] [facility] 2023-09-20 22:18:00 2023-09-20 23:14:00 Emergency Roberto Griffith [facility] 1.2.840.114 350.1.13.10 4.2.7.2.686 [id number] [facility] 2023-07-16 18:45:00 2023-07-16 22:54:00 Emergency X ROBERTO GRIFFITH [facility] ERT [id number] [facility] 2023-07-16 18:45:00 2023-07-16 22:54:00 Emergency Sandi Cardozo Donnell [facility] 1.2.840.114 350.1.13.10 4.2.7.2.686 [id number] [facility] 2023-07-03 14:00:00 2023-07-03 14:00:00 Outpatient R VIANEY GARCIA [facility] [id number] [facility] 2023-05-17 15:00:00 2023-05-17 15:24:56 Outpatient R FAROOQ DAVIS [facility] [id number] [facility] 2023-05-17 15:00:00 2023-05-17 15:20:00 Urgent Care AdilsonFarooq segura Unknown, Attending [facility] 1.2.840.114 350.1.13.10 4.2.7.2.686 [id number] [facility] 2023-03-27 13:30:00 2023-03-27 13:30:00 Outpatient R JOYCE LOPEZ [facility] [id number] [facility] 2023-03-13 00:00:00 2023-03-13 00:00:00 Joyce Edwards [facility] MEDICAL COLLECTIONS [facility] 1.2.840.114 350.1.13.10 4.2.7.2.686 [id number] [facility] 2023-01-05 08:03:00 2023-01-05 09:46:00 Emergency X ROBERTO GRIFFITH [facility] ERT [id number] [facility] 2023-01-05 08:03:00 2023-01-05 09:46:00 Emergency Roberto Griffith [facility] 1.2.840.114 350.1.13.10 4.2.7.2.686 [id number] [facility] 2022-12-27 11:00:00 2022-12-27 12:13:57 Outpatient R JOYCE LOPEZ [facility] [id number] [facility] 2022-12-27 11:00:00 2022-12-27 12:13:57 Office Visit Joyce Lopez [facility] MED[facility] COLLE[facility] 1.2840.114 350.1.13.10 4.2.7.2.686 [id number] [facility] 2022-12-27 00:00:00 2022-12-27 00:00:00 Orders Only Doctor Unassigned, Kamrar [facility] 1.2840.114 350.1.13.10 4.2.7.2.686 [id number] [facility] 2022-09-27 20:33:00 2022-09-27 21:45:00 Emergency X ALEXIS CAMPOS [facility] ERT [id number] [facility] 2022-09-27 20:33:00 2022-09-27 21:45:00 Emergency Alexis Campos S [facility] 1.2.840.114 350.1.13.10 4.2.7.2.686 [id number] [facility] 2022-09-27 10:15:00 2022-09-27 10:15:00 Outpatient MARGA WISECY [facility] [id number] [facility] 2022-09-24 21:55:00 2022-09-24 23:00:00 Emergency X BANDAR CASTILLO [facility] ERT [id number] [facility] 2022-09-24 21:55:00 2022-09-24 23:00:00 Emergency Bandar Castillo S [facility] 1..114 350.1.13.10 4.2.7.2.686 [id number] [facility] 2022-01-06 09:56:00 2022-01-06 09:56:00 Outpatient Facundo Almanzar [facility] [id number] 2021-12-30 00:00:00 2021-12-30 00:00:00 Telephone Mayra Saavedra [facility] MEDICAL COLLECTIONS [facility] 1..114 350.1.13.10 4.2.7.2.686 [id number] [facility] 2021-12-29 15:15:00 2021-12-29 15:46:42 Outpatient R MAYRA SAAVEDRA [facility] [id number] [facility] 2021-12-29 15:15:00 2021-12-29 15:46:42 Office Visit Mayra Saavedra [facility] MEDICAL COLLECTIONS [facility] 1..114 350.1.13.10 4.2.7.2.686 [id number] [facility] 2021-12-29 00:00:00 2021-12-29 00:00:00 Orders Only Doctor Unassigned, Kamrar [facility] 1.0.114 350.1.13.10 4.2.7.2.686 [id number] [facility] 2021-12-22 09:45:00 2021-12-22 09:45:00 Outpatient RENETTA JULIEN [facility] [id number] [facility] 2021-12-22 09:45:00 2021-12-22 09:45:00 Outpatient RENETTA JULIEN [facility] [id number] [facility] 2021-12-14 15:00:00 2021-12-14 15:00:00 Outpatient VIANEY RUIZ [facility] [id number] [facility] 2021-12-08 08:53:50 2021-12-08 23:59:00 Outpatient RENETTA JULIEN [facility] [id number] [facility] 2021-12-08 08:45:00 2021-12-08 10:02:07 Outpatient RENETTA JULIEN [facility] [id number] [facility] 2021-12-08 08:45:00 2021-12-08 10:02:07 Outpatient Cecily COON RENETTA [facility] [id number] [facility] 2021-12-08 08:45:00 2021-12-08 09:00:00 [facility] 1.2.840.114 350.1.13.10 4.2.7.2.686 [id number] [facility] 2021-12-01 14:15:00 2021-12-01 14:15:00 Outpatient RENETTA JULIEN [facility] [id number] [facility] 2021-12-01 14:15:00 2021-12-01 14:15:00 Outpatient RENETTA JULIEN [facility] [id number] [facility] 2021-11-29 09:15:00 2021-11-29 09:30:00 Applications Sales Consultant Visit 2, [facility] Annabelle Jo [facility] 1.2.840.114 350.1.13.10 4.2.7.2.686 [id number] [facility] 2021-11-29 09:15:00 2021-11-29 09:15:00 [facility] [id number] [facility] 2021-11-29 09:15:00 2021-11-29 09:15:00 Outpatient R SANDRO [facility] [id number] [facility] 2021-11-29 08:30:00 2021-11-29 08:30:00 Office Visit SandroMargacy [facility] 1..840.114 350.1.13.10 4.2.7.2.686 [id number] [facility] 2021-11-24 00:00:00 2021-11-24 00:00:00 Orders Only Doctor Unassigned, Kamrar [facility] 1..840.114 350.1.13.10 4.2.7.2.686 [id number] [facility] 2021-11-17 15:00:00 2021-11-17 15:00:00 Outpatient Cecily JO [facility] [id number] [facility] 2021-11-09 09:00:00 2021-11-09 09:00:00 [facility] [id number] [facility] 2021-09-21 15:30:00 2021-09-21 15:41:13 Nurse Visit Nurse, [facility] Vianey Garcia [facility] 1.2.840.114 350.1.13.10 4.2.7.2.686 [id number] [facility] 2021-09-21 15:30:00 2021-09-21 15:30:00 Outpatient VIANEY RUIZ [facility] [id number] [facility] 2021-09-13 15:30:00 2021-09-13 15:30:00 Outpatient R VIANEY GARCIA [facility] [id number] [facility] 2021-08-03 15:30:00 2021-08-03 15:30:00 Outpatient R [facility] [id number] [facility] 2021-05-11 15:44:35 2021-05-11 16:44:44 Nurse Visit Nurse, [facility] Samanta Petty [facility] 1..840.114 350.1.13.10 4.2.7.2.686 [id number] [facility] 2021-05-11 08:00:00 2021-05-11 08:00:00 Outpatient R [facility] [id number] [facility] 2021-05-11 00:00:00 2021-05-11 00:00:00 Orders Only Doctor Unassigned, Kamrar [facility] 1..840.114 350.1.13.10 4.2.7.2.686 [id number] [facility] 2021-05-10 08:00:00 2021-05-10 08:00:00 Outpatient R [facility] [id number] [facility] 2021-05-03 15:00:00 2021-05-03 15:00:00 Outpatient R [facility] [id number] [facility] 2021-04-30 00:00:00 2021-04-30 00:00:00 Nurse Triage Lucrecia Williamson [facility] 1..840.114 350.1.13.10 4.2.7.2.686 [id number] [facility] 2021-03-18 15:30:00 2021-03-18 15:30:00 Outpatient R [facility] [id number] [facility] 2021-03-16 14:30:00 2021-03-16 14:30:00 Outpatient R [facility] [id number] [facility] 2021-03-16 00:00:00 2021-03-16 00:00:00 Telephone AdVianey teague [facility] 1.2.840.114 350.1.13.10 4.2.7.2.686 [id number] [facility] 2021-02-25 10:15:00 2021-02-25 10:15:00 Outpatient Cecily COON RENETTA [facility] [id number] [facility] 2021-02-17 15:00:00 2021-02-17 15:00:00 Outpatient Cecily COON [facility]TA [facility] [id number] [facility] 2021-02-11 10:00:00 2021-02-11 10:00:00 Outpatient Cecily COON [facility]ENETTA [facility] [id number] [facility] 2020-12-15 14:23:49 2020-12-15 14:38:49 Applications Sales Consultant Visit 2, [facility] Lab AdVianey teague [facility] Building 1.2.840.114 350.1.13.10 4.2.7.2.686 [id number] [facility] 2020-12-15 13:51:57 2020-12-15 14:18:57 Nurse Visit Nurse, [facility] Women's Health Adzahida Vianey [facility] Building 1.2.840.114 350.1.13.10 4.2.7.2.686 [id number] 134 [id number] [facility] 2020-12-15 14:00:00 2020-12-15 14:00:00 Outpatient R JASPREET [facility] [id number] [facility] 2020-12-06 13:30:00 2020-12-06 13:30:00 [facility] [id number] 2020-11-20 17:26:00 2020-11-20 17:37:00 Emergency EdmundBelinda [facility] 1.2.840.114 350.1.13.10 4.2.7.2.686 [id number] [facility] 2020-11-20 00:00:00 2020-11-20 00:00:00 Orders Only Doctor Unassigned, Kamrar [facility] 1.2.840.114 350.1.13.10 4.2.7.2.686 [id number] [id number] [facility] 2020-11-16 00:00:00 2020-11-16 00:00:00 Case Management Vianey Garcia [facility] 1.2.840.114 350.1.13.10 4.2.7.2.686 [id number] 134 [id number] [facility] 2020-11-09 13:35:56 2020-11-09 15:09:56 Office Visit Vianey Garcia [facility] 1.2.840.114 350.1.13.10 4.2.7.2.686 [id number] 134 [id number] [facility] 2020-11-09 13:30:00 2020-11-09 13:30:00 Outpatient R JASPREET VIANEY [facility] [id number] [facility] 2020-11-08 15:45:00 2020-11-08 15:45:00 Outpatient R ANNABELLE JO [facility] [id number] [facility] 2020-11-05 15:00:00 2020-11-05 15:00:00 Outpatient R JASPREET [facility] [id number] [facility] 2020-11-04 14:30:00 2020-11-04 14:30:00 Outpatient R JASPREET [facility] [id number] [facility] 2020-11-02 00:00:00 2020-11-02 00:00:00 Telephone Adzahida, Vianey Hernandez [facility] 1.2.840.114 350.1.13.10 4.2.7.2.686 [id number] 134 [id number] [facility] 2020-09-23 00:00:00 2020-09-23 00:00:00 Orders Only Doctor Unassigned, Kamrar [facility] 1.2.840.114 350.1.13.10 4.2.7.2.686 [id number] [id number] [facility] 2020-09-15 00:00:00 2020-09-15 00:00:00 Case Management Adzahida, Vianey Hernandez [facility] 1.2.840.114 350.1.13.10 4.2.7.2.686 [id number] 134 [id number] [facility] 2020-09-10 00:00:00 2020-09-10 00:00:00 Case Management AdVianey teague [facility] 1.2.840.114 350.1.13.10 4.2.7.2.686 [id number] 134 [id number] [facility] 2020-09-09 10:14:30 2020-09-09 10:29:30 Applications Sales Consultant Visit 2, [facility] Lab Adzahida, Vianey Hernandez [facility] 1.2.840.114 350.1.13.10 4.2.7.2.686 [id number] 353 [id number] [facility] 2020-09-09 08:31:02 2020-09-09 09:58:53 Office Visit AdVianey teague [facility] 1.2.840.114 350.1.13.10 4.2.7.2.686 [id number] 134 [id number] [facility] 2020-09-09 09:00:00 2020-09-09 09:00:00 Outpatient R VIANEY GARCIA [facility] [id number] [facility] 2020-09-09 00:00:00 2020-09-09 00:00:00 Orders Only Doctor Unassigned, Kamrar [facility] 1..114 350.1.13.10 4.2.7.2.686 [id number] 009 [id number] [facility] 2020-06-15 00:00:00 2020-06-15 00:00:00 Orders Only Doctor Unassigned, Kamrar [facility] 1.114 350.1.13.10 4.2.7.2.686 [id number] 009 [id number] [facility] 2020-06-07 15:12:17 2020-06-07 15:27:17 Office Visit Renetta Coon [facility] 1.114 350.1.13.10 4.2.7.2.686 [id number] [facility] 2020-06-07 15:00:00 2020-06-07 15:00:00 Outpatient R JAYMIE RENETTA [facility] [id number] [facility] 2020-05-24 05:58:00 2020-05-24 09:24:00 Hospital Encounter Les Huggins [facility] 1.114 350.1.13.10 4.2.7.2.686 [id number] [facility] 2020-05-22 13:24:32 2020-05-22 13:44:32 Laboratory Only Lab, Adc Fam Pob Page [facility] Professio nal Office Building One 1.114 350.1.13.10 4.2.7.2.686 [id number] [id number] [facility] 2020-05-22 13:20:00 2020-05-22 13:20:00 Outpatient PAGE BALDERAS [facility] [id number] [facility] 2020-05-21 11:00:00 2020-05-21 11:00:00 Outpatient R PANKAJ REESE [facility] [id number] [facility] 2020-05-17 00:00:00 2020-05-17 00:00:00 Prep For Surgery Les Huggins [facility] [place] 1.2.840.114 350.1.13.10 4.2.7.2.686 [id number] [facility] 2020-05-13 11:14:45 2020-05-13 11:39:37 Office Visit Renetta Coon [facility] [place] 1.2840.114 350.1.13.10 4.2.7.2.686 [id number] [facility] 2020-05-13 11:00:00 2020-05-13 11:00:00 Outpatient R LES HUGGINS [facility] [id number] [facility] 2020-05-13 00:00:00 2020-05-13 00:00:00 Letter (Out) Renetta Coon [facility] [place] 1.2.840.114 350.1.13.10 4.2.7.2.686 [id number] [facility] 2020-05-13 00:00:00 2020-05-13 00:00:00 Letter (Out) Renetta Coon [facility] [place] 1.2.840.114 350.1.13.10 4.2.7.2.686 [id number] [facility] 2020-05-05 15:15:00 2020-05-05 23:59:00 Hospital Encounter Les Huggins [facility] 1.2.840.114 350.1.13.10 4.2.7.2.686 [id number] [facility] 2020-05-05 00:00:00 2020-05-05 00:00:00 Outpatient R BHAVNA LES [facility] [id number] [facility] 2020-04-15 00:00:00 2020-04-15 00:00:00 Orders Only Doctor Unassigned, Kamrar [facility] 1.2.840.114 350.1.13.10 4.2.7.2.686 [id number] [id number] [facility] 2020-04-08 00:00:00 2020-04-08 00:00:00 Telephone [facility] Hug[facility] 1.2.840.114 350.1.13.10 4.2.7.2.686 [id number] [facility] 2020-04-05 14:45:57 2020-04-05 15:00:57 Office Visit Renetta Coon [facility] 1.2.840.114 350.1.13.10 4.2.7.2.686 [id number] [facility] 2020-04-05 15:00:00 2020-04-05 15:00:00 [facility] [id number] [facility] 2020-04-01 14:00:00 2020-04-01 14:00:00 Outpatient R RENETTA COON [facility] [id number] [facility] 2020 11:37:49 2020 13:13:00 Emergency Mariaa Rae [facility] 1.2.840.114 350.1.13.10 4.2.7.2.686 [id number] [facility] 2020 11:37:49 2020 13:13:00 Emergency X MARIAA RAE [facility] ERT [id number] [facility] Results Test Description Test Time Test Comments Results Result Co mments Source [facility], [id number] 04:54:53* Test Item Value Reference Range Interpretation Comme nts PREG SERUM (test code = 8269021900) Negative ZORAIDA (test code = ZORAIDA) Less than 10 IU/L. ?If low titer or ectopic is suspected, resubmit specimen in 48-72 hours. [facility] Metabolic Panel ([id number])2023-10-27 04:49:57* Test Item Value Reference Range Interpretation Comme nts NA (test code = 6026893467) 139 mmol/L 135-145 K (test code = 1093975322) 4.0 mmol/L 3.5-5.0 CL (test code = 6440993677) 108 mmol/L 98-108 CO2 TOTAL (test code = 5379515890) 25 mmol/L 23-31 AGAP (test code = 3764902354) 6 2-16 BUN (test code = 4081350200) 14 mg/dL 7-23 GLUCOSE (test code = 2424056492) 97 mg/dL 70-110 CREATININE (test code = 2160-0) 0.56 mg/dL 0.50-1.04 TOTAL BILI (test code = 2556240194) 0.7 mg/dL 0.1-1.1 CALCIUM (test code = 5376402722) 8.8 mg/dL 8.6-10.6 T PROTEIN (test code = 2563271661) 8.4 g/dL 6.3-8.2 H ALBUMIN (test code = 8493955826) 4.1 g/dL 3.5-5.0 ALK PHOS (test code = 2680853976) 65 U/L 34-122 ALTv (test code = 1742-6) 21 U/L 5-35 AST(SGOT) (test code = 6933002760) 37 U/L 13-40 eGFR (test code = 31054-9) 134.2 mL/min/1.73m2 CKD-EPI eGFR (2020). Assuming creatinine has been stable day-to-day for at least three months, the eGFR indicates Category G1 (>= 90 mL/min/1.73 m2) Lab Interpretation (test code = 05428-8) Abnormal [facility] acute hospital with [id number] 04:36:34* Test Item Value Reference Range Interpretation [...] 33.6 g/dL 31.6-35.1 RDW-SD (test code = 45504-4) 43.0 fL 39.0-49.9 RDW-CV (test code = 788-0) 13.5 % 12.0-15.5 PLT (test code = 777-3) 241 166-358 MPV (test code = 40962-3) 12.1 fL 9.5-12.9 NRBC/100 WBC (test code = 5568515250) 0.0 0.0-10.0 NRBC x10^3 (test code = 8441818736) See_Comment [Automated messa ge] The system which generated this result transmitted reference range: 10*3/?L. The reference range was not used to interpret this result as normal/abnormal. GRAN MAT (NEUT) % (test code = 770-8) 67.8 % IMM GRAN % (test code = 0450195335) 0.60 % LYMPH % (test code = 736-9) 21.2 % MONO % (test code = 5905-5) 8.9 % EOS % (test code = 713-8) 1.0 % BASO % (test code = 706-2) 0.5 % GRAN MAT x10^3(ANC) (test code = 6351738193) 8.58 10*3/uL 1.88-7.09 H IMM GRAN x10^3 (test code = 6068655315) 0.07 10*3/uL 0.00-0.06 H LYMPH x10^3 (test code = 731-0) 2.67 10*3/uL 1.32-3.29 MONO x10^3 (test code = 742-7) 1.12 10*3/uL 0.33-0.92 H EOS x10^3 (test code = 711-2) 0.12 10*3/uL 0.03-0.39 BASO x10^3 (test code = 704-7) 0.06 10*3/uL 0.01-0.07 Lab Interpretation (test code = 05886-1) Abnormal [facility] [id number] 04:27:00* Test Item Value Reference Range Interpretation Comme nts POCT PREG (test code = 1605) Negative On board controls acceptable with C Line (test code = 3574) Yes POCT PREG LOT # (test code = 3575) [id number] POCT PREG TEST DATE ( test code = 3576) 10-01-2024 Lab Interpretation (test cod e = 93542-8) Normal [facility] METABOLIC PANEL (97780)2023-07-17 02:17:29* Test Item Value Reference Range Interpretation Comme nts NA (test code = 4168344630) 140 mmol/L 135-145 K (test code = 3826879385) 3.9 mmol/L 3.5-5.0 CL (test code = 6613883872) 103 mmol/L 98-108 CO2 TOTAL (test code = 5258789452) 29 mmol/L 23-31 AGAP (test code = 2834929977) 8 2-16 BUN (test code = 0148723436) 10 mg/dL 7-23 GLUCOSE (test code = 6847251843) 95 mg/dL 70-110 CREATININE (test code = 7883229812) 0.84 mg/dL 0.50-1.04 TOTAL BILI (test code = 5998759393) 0.3 mg/dL 0.1-1.1 CALCIUM (test code = 8148701260) 9.1 mg/dL 8.6-10.6 T PROTEIN (test code = 2028687673) 8.4 g/dL 6.3-8.2 H ALBUMIN (test code = 0544723198) 4.5 g/dL 3.5-5.0 ALK PHOS (test code = 0957220416) 80 U/L 34-122 ALTv (test code = 1742-6) 16 U/L 5-35 AST(SGOT) (test code = 3777190104) 22 U/L 13-40 eGFR (test code = 26289-9) 102.2 mL/min/1.73m2 CKD-EPI eGFR (2020). Assuming creatinine has been stable day-to-day for at least three months, the eGFR indicates Category G1 (>= 90 mL/min/1.73 m2) Lab Interpretation (test code = 13293-0) Abnormal [facility] WITH [id number] 02:15:48* Test Item Value Reference Range Interpretation Comme nts WBC (test code = 6690-2) 11.54 See_Comment H [Automated Inofilea ge] The system which generated this result [...] 33.3 g/dL 31.6-35.1 RDW-SD (test code = 04295-7) 42.6 fL 39.0-49.9 RDW-CV (test code = 788-0) 13.2 % 12.0-15.5 PLT (test code = 777-3) 277 See_Comment [Automated Inofilea ge] The system which generated this result transmitted reference range: 166 - 358 10*3/?L. The reference range was not used to interpret this result as normal/abnormal. MPV (test code = 61561-8) 10.5 fL 9.5-12.9 NRBC/100 WBC (test code = 7954330133) 0.0 See_Comment [Automated me ssage] The system which generated this result transmitted reference range: 0.0 - 10.0 /100 WBCs. The reference range was not used to interpret this result as normal/abnormal. NRBC x10^3 (test code = 7015215629) See_Comment [Automated messa ge] The system which generated this result transmitted reference range: 10*3/?L. The reference range was not used to interpret this result as normal/abnormal. GRAN MAT (NEUT) % (test code = 770-8) 60.3 % IMM GRAN % (test code = 2361287223) 0.30 % LYMPH % (test code = 736-9) 25.9 % MONO % (test code = 5905-5) 10.8 % EOS % (test code = 713-8) 2.0 % BASO % (test code = 706-2) 0.7 % GRAN MAT x10^3(ANC) (test code = 0431317286) 6.95 10*3/uL 1.88-7.09 IMM GRAN x10^3 (test code = 6589616323) 0.04 10*3/uL 0.00-0.06 LYMPH x10^3 (test code = 731-0) 2.99 10*3/uL 1.32-3.29 MONO x10^3 (test code = 742-7) 1.25 10*3/uL 0.33-0.92 H EOS x10^3 (test code = 711-2) 0.23 10*3/uL 0.03-0.39 BASO x10^3 (test code = 704-7) 0.08 10*3/uL 0.01-0.07 H Lab Interpretation (test code = 93347-3) Abnormal [facility] [id number] 01:53:00* Test Item Value Reference Range Interpretation Comme nts POCT PREG (test code = 1605) Negative On board controls acceptable with C Line (test code = 3574) Yes POCT PREG LOT # (test code = 3575) [id number] POCT PREG TEST DATE ( test code = 3576) 2024-11-29 Lab Interpretation (test cod e = 96496-7) Normal [facility] [id number] 20:06:00* Test Item Value Reference Range Interpretation Comme nts POCT PREG (test code = 1605) Negative On board controls acceptable with C Line (test code = 3574) Yes POCT PREG LOT # (test code = 3575) POCT PREG TEST DATE ( test code = 3576) [facility] URINALYSIS W SPECIFIC [id number] 20:01:00* Test Item Value Reference Range Interpretation [...] U APPEAR (test code = 3267) cloudy [facility]neRUBELLA SCREEN (ANGELIC) [id number] 19:07:18 * Test Item Value Reference Range Interpretation Comme nts Rubella screen IgG (test code = 6568963888) Positive Negative ZORAIDA (test code = ZORAIDA) Positive - Indicat es the patient was exposed to Rubella through infection or vaccination.Negative - Indicates the patient could be susceptible to Rubella infection.Equivocal - A second specimen should be sent. [facility]ne[facility]BELL[facility] S[facility]EN (ANGELIC) [id number] 19:07:18 * Test Item Value Reference Range Interpretation Comme nts Rubella screen IgG (test code = 3318328928) Positive Negative ZORAIDA (test code = ZORAIDA) Positive - Indicat es the patient was exposed to Rubella through infection or vaccination.Negative - Indicates the patient could be susceptible to Rubella infection.Equivocal - A second specimen should be sent. [facility] ONLY - SYPHILIS [id number] 17:26:01* Test Item Value Reference Range Interpretation Comme nts Syphilis IgG/IgM (test code = 20834-4) Non-reactive Non-reactive ZORAIDA (test code = ZORAIDA) Non-reactive - No serologic evidence of T. pallidum infection. Cannot exclude incubating or early syphilis. Submit a second specimen in 2-4 weeks if syphilis is clinically suspected. Equivocal - Further testing to follow. Reactive - Further testing to follow. Lab Interpretation (test code = 79458-0) Normal [facility] ONLY - SYPHILIS [id number] 17:26:01* Test Item Value Reference Range Interpretation Comme nts Syphilis IgG/IgM (test code = 45356-8) Non-reactive Non-reactive ZORAIDA (test code = ZORAIDA) Non-reactive - No serologic evidence of T. pallidum infection. Cannot exclude incubating or early syphilis. Submit a second specimen in 2-4 weeks if syphilis is clinically suspected. Equivocal - Further testing to follow. Reactive - Further testing to follow. Lab Interpretation (test code = 48227-7) Normal [facility]neGLYCOSYLATED HEMOGLOBIN (A1C)2022-12-28 15:57:54* Test Item Value Reference Range Interpretation Comme nts HGB A1C (test code = 4548-4) 5.5 % 4.0-5.7 ZORAIDA (test code = ZORAIDA) Reference RangesNormal: <5.7%Prediabetes: 5.7 - 6.4%Diabetes: > 6.5% Lab Interpretation (test code = 26376-8) Normal [facility]neGLYCOSYLATED HEMOGLOBIN (A1C)2022-12-28 15:57:54* Test Item Value Reference Range Interpretation Comme nts HGB A1C (test code = 4548-4) 5.5 % 4.0-5.7 ZORAIDA (test code = ZORAIDA) Reference RangesNormal: <5.7%Prediabetes: 5.7 - 6.4%Diabetes: > 6.5% Lab Interpretation (test code = 78407-1) Normal [facility] 1/2 AG-AB WITH [id number] 12:20:58* Test Item Value Reference Range Interpretation Comme nts HIV Semi-quantitative (test code = 27712-3) 0.07 Negative ZORAIDA (test code = ZORAIDA) Non-reactive for HIV-1 antigen and HIV-1/HIV-2 antibodies. ?No laboratory evidence of HIV infection. ?Repeat in 2-4 weeks if acute HIV infection is suspected. [facility] [id number] 12:20:58* Test Item Value Reference Range Interpretation Comme nts HIV Semi-quantitative (test code = 06525-1) 0.07 Negative ZORAIDA (test code = ZORAIDA) Non-reactive for HIV-1 antigen and HIV-1/HIV-2 antibodies. ?No laboratory evidence of HIV infection. ?Repeat in 2-4 weeks if acute HIV infection is suspected. [facility] [id number] 09:03:31* Test Item Value Reference Range Interpretation Comme nts HCV Ab (test code = 84833-4) Negative HCV Semi-Quantitative (test code = 34712-3) 0.02 [facility] [id number] 09:03:31* Test Item Value Reference Range Interpretation Comme nts HCV Ab (test code = 62455-2) Negative HCV Semi-Quantitative (test code = 31498-1) 0.02 [facility]neTHYROID STIMULATING [id number] 08:28:04 * Test Item Value Reference Range Interpretation Comme nts TSH (test code = 5120706259) 0.99 See_Comment [Automated messa ge] The system which generated this result transmitted reference range: 0.45 - 4.70 mIU/L. The reference range was not used to interpret this result as normal/abnormal. Lab Interpretation (test code = 59011-9) Normal [facility]ne[facility]YROID STIMULATING [id number] 08:28:04 * Test Item Value Reference Range Interpretation Comme nts TSH (test code = 9304230629) 0.99 See_Comment [Automated messa ge] The system which generated this result transmitted reference range: 0.45 - 4.70 mIU/L. The reference range was not used to interpret this result as normal/abnormal. Lab Interpretation (test code = 52239-2) Normal [facility] WITH [id number] 07:54:04* Test Item Value Reference Range Interpretation [...] 32.7 g/dL 31.6-35.1 RDW-SD (test code = 14325-5) 42.5 fL 39.0-49.9 RDW-CV (test code = 788-0) 13.0 % 12.0-15.5 PLT (test code = 777-3) 232 See_Comment [Automated messa ge] The system which generated this result transmitted reference range: 166 - 358 10*3/?L. The reference range was not used to interpret this result as normal/abnormal. MPV (test code = 01337-5) 11.5 fL 9.5-12.9 NRBC/100 WBC (test code = 3489072373) 0.0 See_Comment [Automated [facility] ssage] The system which generated this result transmitted reference range: 0.0 - 10.0 /100 WBCs. The reference range was not used to interpret this result as normal/abnormal. NRBC x10^3 (test code = 0386917220) See_Comment [Automated messa ge] The system which generated this result transmitted reference range: 10*3/?L. The reference range was not used to interpret this result as normal/abnormal. GRAN MAT (NEUT) % (test code = 770-8) 57.6 % IMM GRAN % (test code = 1034468520) 0.20 % LYMPH % (test code = 736-9) 29.9 % MONO % (test code = 5905-5) 8.6 % EOS % (test code = 713-8) 2.7 % BASO % (test code = 706-2) 1.0 % GRAN MAT x10^3(ANC) (test code = 7802775592) 5.43 10*3/uL 1.88-7.09 IMM GRAN x10^3 (test code = 9771433828) 0.00-0.06 LYMPH x10^3 (test code = 731-0) 2.81 10*3/uL 1.32-3.29 MONO x10^3 (test code = 742-7) 0.81 10*3/uL 0.33-0.92 EOS x10^3 (test code = 711-2) 0.25 10*3/uL 0.03-0.39 BASO x10^3 (test code = 704-7) 0.09 10*3/uL 0.01-0.07 H Lab Interpretation (test code = 43499-8) Abnormal [facility] WITH [id number] 07:54:04* Test Item Value Reference Range Interpretation Comme nts WBC (test code = 6690-2) 9.41 See_Comment [Automated Inofilea ge] The system which generated this result transmitted reference range: 4.30 - 11.10 10*3/?L. The reference range was not used to interpret this result as normal/abnormal. RBC (test code = 789-8) 4.84 See_Comment [Automated Inofilea ge] The system which generated this result [...] 32.7 g/dL 31.6-35.1 RDW-SD (test code = 81579-3) 42.5 fL 39.0-49.9 RDW-CV (test code = 788-0) 13.0 % 12.0-15.5 PLT (test code = 777-3) 232 See_Comment [Automated messa ge] The system which generated this result transmitted reference range: 166 - 358 10*3/?L. The reference range was not used to interpret this result as normal/abnormal. MPV (test code = 44020-5) 11.5 fL 9.5-12.9 NRBC/100 WBC (test code = 1567600103) 0.0 See_Comment [Automated [facility] ssage] The system which generated this result transmitted reference range: 0.0 - 10.0 /100 WBCs. The reference range was not used to interpret this result as normal/abnormal. NRBC x10^3 (test code = 6275385525) See_Comment [Automated Inofilea ge] The system which generated this result transmitted reference range: 10*3/?L. The reference range was not used to interpret this result as normal/abnormal. GRAN MAT (NEUT) % (test code = 770-8) 57.6 % IMM GRAN % (test code = 2667407596) 0.20 % LYMPH % (test code = 736-9) 29.9 % MONO % (test code = 5905-5) 8.6 % EOS % (test code = 713-8) 2.7 % BASO % (test code = 706-2) 1.0 % GRAN MAT x10^3(ANC) (test code = 5748554483) 5.43 10*3/uL 1.88-7.09 IMM GRAN x10^3 (test code = 3213294130) 0.00-0.06 LYMPH x10^3 (test code = 731-0) 2.81 10*3/uL 1.32-3.29 MONO x10^3 (test code = 742-7) 0.81 10*3/uL 0.33-0.92 EOS x10^3 (test code = 711-2) 0.25 10*3/uL 0.03-0.39 BASO x10^3 (test code = 704-7) 0.09 10*3/uL 0.01-0.07 H Lab Interpretation (test code = 75666-3) Abnormal [facility] [id number] 16:47:00* Test Item Value Reference Range Interpretation Comme nts POCT PREG (test code = 1605) Negative On board controls acceptable with C Line (test code = 3574) Yes POCT PREG LOT # (test code = 3575) POCT PREG TEST DATE ( test code = 3576) [facility] [id number] 16:47:00* Test Item Value Reference Range Interpretation Comme nts POCT PREG (test code = 1605) Negative On board controls acceptable with C Line (test code = 3574) Yes POCT PREG LOT # (test code = 3575) POCT PREG TEST DATE ( test code = 3576) [facility] [id number] 04:35:00* Test Item Value Reference Range Interpretation Comme nts POCT PREG (test code = 1605) negative On board controls acceptable with C Line (test code = 3574) present POCT PREG LOT # (test code = 3575) [id number] POCT PREG TEST DATE ( test code = 3576) 2023-11-25 Lab Interpretation (test cod e = 45660-3) [facility]* Test Item Value Reference Range Interpretation Comme nts SURGICAL (test code = SR) R UN DATE: 01/17/22 [place] - Lab PAGE 1 RUN TIME: 1221 Specimen Inquiry RUN USER: INTERFACE P ATIENT: KATRIN PEREZ [facility] U #: [id number] AGE/SX: 16/F ROOM: RE01/06/22REG DR: Facundo Kwon MD : 03 BED: DIS: STATUS: [facility] TLOC: SPEC #: [id number] RECD: 01/09/22 STATUS: JORDAN LEAVITT #: [id number] KI: 01/06/22 [facility] DR: Facundo Kwon MD ENTERED: 01/09/22 SP TYPE: SURGICAL OTHR DR: DOES_NOT KNOW ORDERED: 38032/2, 23789, ANATOMIC SPEC COPIES TO: DOES_NOT KNOW Facundo Kwon MD [address] [place] [id number] PROCEDURES: [id number] (01/09/22-715) [id number] (01/10/22-3955) TISSUES: A. DUODENUM BIOPSY B. STOMACH BIOPSY/POLYP [...] ON NEXT PAGE R UN DATE: 01/17/22 [facility] PAGE 2 RUN TIME: 1221 Specimen Inquiry RUN USER: INTERFACE S TUSHAR #: [id number] PATIENT: KATRIN PEREZ #[id number] (Continued) GROSS DESCRIPTION (Continued) Technical component excluding immunohistochemistry is performed at [facility], [address] [place] [address] Technical component of all immunohistochemistry is performed at [facility], [address] [place] [address], [address], [place] [address] Immunohistochemistry: This test was developed and its [...] 01/17/22 1221 END OF REPORT UR HCG [id number] 12:02:00* Test Item Value Reference Range Interpretation Comme nts UR HCG QUAL (test code = HCGQLU) NEGATIVE This HCGQL test is NOT applicable for MALE patients.Check with nurse about probable order error.If Tumor Marker Test needed, nurse should order test "HCGTU"(Test #[id number])
[2024-08-11 15:57] LABS: Specific Gravity 1.021 (1.005-1.030)
[2024-08-11 15:58] LABS: Specific Gravity 1.021 (1.005-1.030); Sqamous Epithelial <5 /HPF (None Seen); Urine Bacteria None Seen /HPF (<20); Urine Bilirubin NEGATIVE (Negative); Urine Blood Negative (Negative); Urine Clarity Clear (Clear); Urine Color Light-Yellow (Yellow); Urine Culture Reflex Order NOT NEEDED; Urine Glucose NEGATIVE (Negative); Urine Ketones NEGATIVE (Negative); Urine Micro Reflex YN NO BILL MICROSCOPIC; Urine Mucus Slight /HPF (None Seen); Urine Nitrite NEGATIVE (Negative); Urine Protein NEGATIVE (Negative); Urine Urobilinogen Normal (Normal); Urine WBC <5 /HPF (<5)
[2024-08-11 16:26] LABS: SARS-CoV-2 Antigen CONTROL BLUE LINE VIS/BG OK; SARS-CoV-2 Antigen Rapid Res Negative (Negative)
--- NOTE | 2024-08-11 17:35 | EDPHYS ---
Physician Documentation [facility] Name: Lizzie Chsae Age: 19 yrs Sex: Female : 2005 Arrival Date: 08/11/2024 Time: 14:53 Bed 25 Private MD: ED Physician Paul Gonzalez HPI: 08/11 16:25 This 19 yrs old Female presents to ER via Ambulatory with complaints of Flu cp Symptoms. 16:25 The patient or guardian reports cough, body aches, fever, chills. Onset: The cp symptoms/episode began/occurred last night. 16:25 Associated signs and symptoms: Pertinent negatives: diarrhea, sore throat, vomiting. cp Patient reports lower abdomen pain. History of known trichomonas infection in which she was treated but partner was not. Patient reports unknown LMP and concerns about possible . Historical: - Allergies: 15:19 No Known Allergies; cm10 - PMHx: 15:19 PRE-DIABETIC; cm10 - Immunization history:: Adult Immunizations up to date. - Infectious Disease History:: Denies. - Social history:: Smoking status: Patient denies any tobacco usage or history of. ROS: 16:30 Constitutional: Negative for body aches, chills, fever, cp 16:30 Abdomen/GI: Positive for lower abdomen pain, cp 16:30 : Positive for urinary frequency, 16:30 Eyes: Negative for injury, pain, redness, and discharge, cp 16:30 ENT: Negative for ear pain, sore throat, 16:30 Respiratory: Positive for cough, Negative for shortness of breath, wheezing, 16:30 Neuro: Negative for headache, 16:30 All other systems are negative, Exam: 16:35 Constitutional: The patient appears in no acute distress, alert, awake, non-toxic, well cp developed, well nourished, 16:35 Head/Face: Normocephalic, atraumatic. cp 16:35 Eyes: Periorbital structures: appear normal, Conjunctiva: normal, no exudate, no injection, Sclera: no appreciated abnormality, Lids and lashes: appear normal, bilaterally, 16:35 ENT: External ear(s): are unremarkable, Nose: is normal, Mouth: Lips: moist, Oral mucosa: moist, Posterior pharynx: Airway: no evidence of obstruction, patent, 16:35 Chest/axilla: Inspection: normal, 16:35 Cardiovascular: Rate: tachycardic, Rhythm: regular, 16:35 Respiratory: the patient does not display signs of respiratory distress, Respirations: normal, no use of accessory muscles, no retractions, labored breathing, is not present, Breath sounds: are clear throughout, no decreased breath sounds, no stridor, no wheezing, 16:35 Abdomen/GI: Inspection: abdomen appears normal, Palpation: soft, in all quadrants, nontender, in all quadrants, 16:35 Back: CVA tenderness, is absent, Vital Signs: 15:18 BP 140 / 92; Pulse 116; Resp 18; Temp 99.4(O); Pulse Ox 98% on R/A; Weight 77.11 kg; cm10 Height 5 ft. 0 in. ; Pain 10/10; 15:18 Body Mass Index 33.20 (77.11 kg, 152.4 cm) cm10 15:18 Pain Scale: Adult cm10 MDM: 15:23 Medical Screening Exam initiated cp 17:00 Differential diagnosis: bronchitis, flu, URI, uti, , std. cp 17:35 Data reviewed: vital signs, nurses notes, lab test result(s). cp 17:35 Counseling: I had a detailed discussion with the patient and/or guardian regarding the historical points, exam findings, and any diagnostic results supporting the discharge/admit diagnosis, lab results, to return to the emergency department if symptoms worsen or persist or if there are any questions or concerns that arise at home. 08/11 15:26 Order name: Urinalysis W/Microscopic; Complete Time: 17:27 08/11 15:26 Order name: Urine Culture 08/11 15:26 Order name: Test, Urine; Complete Time: 17:27 16 17:31 Interpretation: Reviewed. 12 15:26 Order name: SARS RAPID; Complete Time: 17:27 08/11 15:26 Order name: Strep 08/11 15:26 Order name: RSV; Complete Time: 17:27 08/11 15:26 Order name: Influenza Screen (a \T\ B); Complete Time: 17:27 08/11 16:19 Order name: Throat Culture EDMS Administered Medications: No medications were administered Disposition: 18:13 Co-signature as Attending Physician, Paul Gonzalez MD I reviewed the patient's care rn provided by the Advanced Practice Provider and agree with the diagnosis and treatment plan. Disposition Summary: 08/11/24 17:35 Discharge Ordered Notes: Location: Home cp Problem: new cp Symptoms: have improved cp Condition: Stable cp Diagnosis - Cough cp - Encounter for test, result negative cp Followup: cp - With: Private Physician - When: 2 - 3 days - Reason: Worsening of condition Discharge Instructions: - Discharge Summary Sheet cp - Viral Respiratory Infection cp - Cough, Adult cp Forms: - Medication Reconciliation Form cp - Antibiotic Education cp - Prescription Opioid Use cp - Patient Portal Instructions cp - Leadership Thank You Letter cp Prescriptions: - Tessalon Perles 100 mg Oral capsule - take 2 capsule ORAL route every 8 hours As needed; 30 capsule; Refills: 0, cp Product Selection Permitted Signatures: Dispatcher [employer] EDMS Paul Gonzalez MD MD rn Samuel Bunch PA PA cp Martinez, Clarissa RN RN cm10 Corrections: (The following items were deleted from the chart) 15:26 15:26 Urinalysis W/Microscopic+U.LAB.BRZ ordered. EDNM EDMS 15: 15:26 Urine Culture+BA.LAB.BRZ ordered. EDNM EDMS 15: 15:26 Test, Urine+UC.LAB.BRZ ordered. EDNM EDMS 15:26 15:26 SARS-COV-2 Antigen Rapid+I.LAB.BRZ ordered. EDNM EDMS 15:26 15:26 Group A Streptococcus Rapid Sc+BA.LAB.BRZ ordered. EDNM EDMS 15: 15:26 Respiratory Syncytial Virus Ag+BA.LAB.BRZ ordered. EDNM EDMS 15:26 15:26 Influenza Screen (A \T\ B)+BA.LAB.BRZ ordered. EDNM EDNM 08/12 13:47 08/11 16:25 The patient or guardian reports cough, body aches, fever, cp cp 08/12 13:53 08/11 17:25 Data reviewed: vital signs, nurses notes, lab test result(s), cp cp
--- NOTE | 2024-08-11 17:35 | ER ---
Nurse's Notes [facility] Name: Lizzie Chase Age: 19 yrs Sex: Female : 2005 Arrival Date: 08/11/2024 Time: 14:53 Bed 25 Private MD: Diagnosis: Cough;Encounter for test, result negative Presentation: 08/11 15:18 Chief complaint: Patient states: FEVER, CHILLS, BODY ACHES, AND COUGH ONSET LAST NIGHT. cm10 PT ALSO REPORTS LOWER ABDOMINAL PAIN AND URINARY FREQUENCY. Coronavirus screen: Client denies travel out of the [place] in the last 14 days. Ebola Screen: Patient denies travel to an Ebola-affected area in the 21 days before illness onset. No symptoms or risks identified at this time. Initial Sepsis Screen: Does the patient meet any 2 criteria? HR > 90 bpm. Does the patient have a suspected source of infection? No. Patient's initial sepsis screen is negative. Risk Assessment: Do you want to hurt yourself or someone else? Patient reports no desire to harm self or others. Onset of symptoms was August 10, 2024. 15:18 Method Of Arrival: Ambulatory cm10 15:18 Acuity: NACHO 3 cm10 Triage Assessment: 15:20 General: Appears in no apparent distress. comfortable, Behavior is calm, cooperative. cm10 Neuro: No deficits noted. Level of Consciousness is awake, alert, obeys commands, Oriented to person, place, time, situation, Appropriate for age. Respiratory: No deficits noted. Airway is patent Respiratory effort is even, unlabored, Respiratory pattern is regular, symmetrical. Historical: - Allergies: 15:19 No Known Allergies; cm10 - PMHx: 15:19 PRE-DIABETIC; cm10 - Immunization history:: Adult Immunizations up to date. - Infectious Disease History:: Denies. - Social history:: Smoking status: Patient denies any tobacco usage or history of. Screenin:00 [facility] ED Fall Risk Assessment (Adult) History of falling in the last 3 months, jb4 including since admission No falls in past 3 months (0 pts) Confusion or Disorientation No (0 pts) Intoxicated or Sedated No (0 pts) Impaired Gait No (0 pts) Mobility Assist Device Used No (0 pt) Altered Elimination No (0 pt) Score/Fall Risk Level 0 - 2 = Low Risk Oriented to surroundings, Maintained a safe environment. Abuse screen: Denies threats or abuse. Nutritional screening: No deficits noted. Tuberculosis screening: No symptoms or risk factors identified. Assessment: 16:32 Reassessment: Patient appears in no apparent distress at this time. Patient and/or jb4 family updated on plan of care and expected duration. Pain level reassessed. Patient is alert, oriented x 3, equal unlabored respirations, skin warm/dry/pink. 18:00 Reassessment: Patient appears in no apparent distress at this time. Patient and/or jb4 family updated on plan of care and expected duration. Pain level reassessed. Patient is alert, oriented x 3, equal unlabored respirations, skin warm/dry/pink. Vital Signs: 15:18 BP 140 / 92; Pulse 116; Resp 18; Temp 99.4(O); Pulse Ox 98% on R/A; Weight 77.11 kg; cm10 Height 5 ft. 0 in. ; Pain 10/10; 15:18 Body Mass Index 33.20 (77.11 kg, 152.4 cm) cm10 15:18 Pain Scale: Adult cm10 ED Course: 14:57 Patient arrived in ED. im 15:06 Samuel Bunch PA is PHCP. cp 15:06 Paul Gonzalez MD is Attending Physician. cp 15:19 Triage completed. cm10 15:20 Arm band placed on right wrist. Patient placed in an exam room. cm10 15:34 Catracho Martínez, RN is Primary Nurse. jb4 15:39 Urinalysis W/Microscopic Sent. jb4 15:39 Urine Culture Sent. jb4 15:39 Test, Urine Sent. jb4 15:39 SARS RAPID Sent. jb4 15:39 Strep Sent. jb4 15:39 RSV Sent. jb4 15:39 Influenza Screen (a \T\ B) Sent. jb4 18:00 Patient has correct armband on for positive identification. Bed in low position. Call jb4 light in reach. Side rails up X 1. Provided Education on: discharge instructions.. 18:00 No provider procedures requiring assistance completed. Patient did not have IV access jb4 during this emergency room visit. Administered Medications: No medications were administered Medication: 18:00 VIS not applicable for this client. jb4 Outcome: 17:35 Discharge ordered by . cp 18:00 Discharged to home ambulatory, jb4 18:00 Condition: stable 18:00 Discharge instructions given to patient, Instructed on discharge instructions, follow up and referral plans. medication usage, Demonstrated understanding of instructions, follow-up care, medications, Prescriptions given X 1, 18:01 Patient left the ED. jb4 Signatures: Samuel Bunch PA PA cp Bryson, James RN RN jb4 Mariah Napier Clarissa RN RN cm10
[2024-08-11 18:50] VITALS: BP 140/92; TEMP 99.4; O2SAT 98
== END 2024-08-11 18:01 | disposition home or self-care (01) ==
LOC: ER 14:53
DX: R05.9 Cough, unspecified (principal); Z32.02 Encounter for pregnancy test, result negative; Z11.52 Encounter for screening for COVID-19
CPT/HCPCS: 36415; 81001; 81025; 87070; 87081; 87086; 87088; 87804; 87807; 87811; 99283

== ENCOUNTER 2024-08-26 16:00 | Emergency (ER) | payer OTHER ==
--- OUTSIDE RECORDS SUMMARY | 2024-08-26 16:04 | XMS REPORT | Continuity of Care Document ---
Author Name Unknown Address [address] [facility] [place] [address] [facility] Address [address] [facility] [address] [place] [address] Care Team Providers Care Customer Service Correspondence Clerk Name Role Phone LIDIA PHELAN Primary Care Physician Vannesa vailaLES Trammell Attending Clinician UnavailPHAN Charlton Attending Clinician Unavailable Kristian TERRELL Attending Clinician Unavailable Kristian TERRELL Attending Clinician Unavailable Kristian Denney Attending Clinician [phone] ALAN BAEZA Attending Clinician Unavailable GERARD NOBLES Attending Clinician Unavailable GERARD NOBLES Attending Clinician Unavailable CATRACHITA NGUYEN Attending Clinician Unavail able Doctor Unassigned, [place] Attending Clinician U sandraailROBERTO [place] Attending Clinician Unavailable Roberto Griffith MD Attending Clinician [phone] Sandi Cardozo NP Attending Clinician [phone] VIANEY GARCIA Attending Clinician Unavailable FAROOQ DAVIS Attending Clinician Unavailable Farooq Barnett Attending Clinician [phone] Unknown, Attending Attending Clinician Unavailab JOYCE Kumar Attending Clinician UnavailJoyce Fuentes CNM Attending Clinician [phone] WENDY JANE Attending Clinician UnavailWENDY Crane Attending Clinician UnavailALEXIS Shore S Attending Clinician Unavailable Alexis Odell S Attending Clinician [phone] ANNABELLE JO Attending Clinician Unavailable BANDAR CASTILLO Attending Clinician Unavailable Bandar Castillo MD Attending Clinician [phone] Facundo Kwon Attending Clinician Unavailable Mayra Pandey Attending Clinician [phone] MAYRA SAAVEDRA Attending Clinician Unavailab RENETTA Lam Attending Clinician Unavailable Renetta Clark S Attending Clinician [phone] , [facility] Attending Clinician Unavailable Annabelle Jo PA-C Attending Clinician [phone] Nurse, [facility] Attending Clinician Un available Radha MORENO, Vianey Hernandez Attending Clinician [phone] Samanta Petty MD Attending Clinician [phone] Teri RN, Lucrecia M Attending Clinician Unavailable Belinda Hall DO Attending Clinician [phone] Les Huggins MD Attending Clinician [phone] Lab, [facility] Fam Pob I Attending Clinician Unavailab Page Gorman Attending Clinician [phone] PAGE RED Attending Clinician Unavailable PANKAJ REESE Attending Clinician UnavailMariaa Mccormack NP Attending Clinician [phone] MARIAA RAE Attending Clinician Unavailable LES HUGGINS Admitting Clinician UnavailSANDI Vaughan Admitting Clinician Unavailable KNOW, DOES_NOT Admitting Clinician Unavailable Les Huggins MD Admitting Clinician [phone] BELINDA HALL Admitting Clinician Unavailab niko Payers Payer Name Policy Type Policy Number Effective Date Expirati on Date Source [facility] [id number] 00:00:00 [employer] [id number] 2023 00:00:00 [facility] [place] [facility] [id number] 00:00:00 [facility] SHAYLA ROGERPapito COPAY FOCUS 9 [id number] 2023 00:00:00 Problems Condition Name Condition Details Condition Category Status Onset Date Resolution Date Last Treatment Date Treating Clinician Comments Source Obesity (BMI 30-39.9) Obesity (BMI 30-39.9) Disease Active 12-30 00:00: 00 [facility] BMI 29.0-29.9, adult BMI 29.0-29.9, adult Disease Active 5 00:00: 00 [facility] Menorrhagi a with irregular cycle Menorrhagi a with irregular cycle Disease Active 16 00:00: 00 [facility] Encounter for other general counseling or advice on contracept ion Encounter for other general counseling or advice on contracept ion Disease Resolve d 5-05 00:00: 00 2022-12-30 00:00:00 2022-12-30 11:00:39 [facility] BMI 29.0-29.9, adult BMI 29.0-29.9, adult Disease Resolve d 5-05 00:00: 00 2022-12-30 00:00:00 2022-12-30 11:00:33 [facility] Vitamin D deficiency Vitamin D deficiency Disease Resolve d -16 00:00: 00 2022-12-30 00:00:00 2022-12-30 11:00:56 [facility] Depo-Prove ra contracept kamran status Depo-Prove ra contracept kamran status Disease Resolve d 3-16 00:00: 00 2022-12-30 00:00:00 2022-12-30 11:00:37 [facility] Acute medial meniscus tear, left, subsequent encounter Acute medial meniscus tear, left, subsequent encounter Disease Resolve d 0 9-22 00:00: 00 2022-12-30 00:00:00 2022-12-30 11:00:54 Overview: Formattin g of this note might be different from the original. Added automatic ally from request for surgery [id number] [facility] Allergies, Adverse Reactions, Alerts Allergy Name Allergy Type Status Severity Reaction(s) Onset Date Inactive Date Treating Clinician Comments Source No Known Allergie s DA Active U 01-06 00:00: 00 [facility] NO KNOWN ALLERGIE S Drug Class Active [facility] Social History Social Habit Start Date Stop Date Quantity Comments Source [facility] SDOH Alcohol Comment [place] [facility] Alcoholic beverage intake 2023-10-26 00:00:00 2023-10-26 00:00:00 Lifetime non-drinker (finding) [facility] Alcohol intake 2023-10-26 00:00:00 2023-10-26 00:00:00 Lifetime non-drinker (finding) [facility] Exposure to SARS-CoV-2 (event) 2022-12-26 00:00:00 2023-01-05 08:00:[address] [facility] Tobacco use and exposure 2022-12-27 00:00:00 2022-12-27 00:00:00 Smokeless tobacco non-user [facility] History of Social function 2022-12-27 00:00:00 2022-12-27 00:00:[address] [facility] History SDOH Alcohol Frequency 2020-04-05 00:00:00 2020-04-05 00:00:[address] [facility] History SDOH Alcohol Std Drinks 2020-04-05 00:00:00 2020-04-05 00:00:[address] [facility] History SDOH Alcohol Binge 2020-04-05 00:00:00 2020-04-05 00:00:[address] [facility] Sex assigned at 2003 00:00:00 2003 00:00:[address] [facility] Smoking Status Start Date Stop Date Source Never smoked tobacco [facility] Medications Ordered Medication Name Filled Medication Name Start Date Stop Date Current Medication? Ordering Clinician Indication Dosage Frequency Signature (SIG) Comments Components Source cefdinir 300 mg capsule 2023-08 00:00: 00 06-09 04:59 :00 Yes [id number] 300mg Take 1 capsule by mouth every 12 (twelve) hours for 10 days. [facility] ketorolac (TORADOL) injection 30 mg 10-26 06:00: 00 10-26 05:23 :00 No 30mg 30 mg, Slow IV Push, ONCE, 1 dose, On Sun10/27/23 at 0000, Routine [facility] cefTRIAXone (ROCEPHIN) 1,000 mg in NaCl 0.9% (NS) 100 mL MINI-BAG 10-26 05:15: 00 10-26 05:52 :00 No 1000mg 1,000 mg, IV Piggyback, ONCE, 1 dose, On Sun10/26/23 at 2315, Administer over 30 Minutes, 100 mL
Reas on for Anti-Infec tive: Documented Infection< br>Documen christiano Infection Site: Urine
D uration of Therapy: Other (see Comments) [facility] cefdinir 300 mg capsule 10-25 00:00: 00 11-02 05:59 :00 No [id number] 300mg Take 1 capsule by mouth in the morning and 1 capsule in the evening. Do all this for 7 days. [facility] methylPREDN ISolone 4 mg tablets 09-20 00:00: 00 Yes [id number] Take by mouth SEE-INSTRU CTIONS. follow package directions [facility] amoxicillin -clavulanat e 875-125 mg per tablet 09-20 00:00: 00 Yes [id number] 1{tbl} Take 1 tablet by mouth every 12 (twelve) hours. [facility] iopamidol (ISOVUE 370-500 mL) injection 100 mL 2022-08 03:30: 00 07-17 03:30 :00 No [id number] 100mL 100 mL, Intravenou s, ONCE, 1 dose, On 07/16/23 at 2130, Routine [facility] methylPREDN ISolone 4 mg tablets 2022-08 00:00: 00 Yes [id number] Take by mouth SEE-INSTRU CTIONS. follow package directions [facility] clindamycin 300 mg capsule 2022-08 1-20 00:00: 00 07-27 05:59 :00 No [id number] 300mg Take 1 capsule by mouth 4 (four) times daily for 10 days. [facility] cefdinir 300 mg capsule 9- 00:00: 00 05-28 04:59 :00 No [id number] 600mg Take 2 capsules by mouth in the morning for 10 days. [facility] acetaminoph en (TYLENOL) tablet 650 mg 01-05 13:15: 00 01-05 13:14 :00 No 650mg 650 mg, Oral, ONCE, 1 dose, On Sun01/05/23 at 0815, ALLI [facility] amoxicillin 500 mg capsule 01-05 00:00: 00 Yes [id number] 500mg Take 1 capsule by mouth in the morning and 1 capsule at noon and 1 capsule in the evening. [facility] ondansetron 4 mg disintegrat ing tablet 01-05 00:00: 00 Yes [id number] 4mg Take 1 tablet by mouth every 4 (four) hours as needed for Nausea and Vomiting (N/V). [facility] naproxen 500 mg tablet 01-05 00:00: 01-16 04:59 :00 No [id number] 500mg Take 1 tablet by mouth in the morning and 1 tablet in the evening. Take with meals. Do all this for 10 days. [facility] norethindro ne-arminda.estrad ioL-iron (MICROGESTI N FE) 1.5 mg-30 mcg (21)/75 mg (7) per tablet 12-27 00:00: 00 Yes [id number] 1{tbl} Take 1 tablet by mouth in the morning. [facility] naproxen (NAPROSYN) 500 mg tablet 09-27 00:00: 00 12-27 00:00 :00 No [id number] 500mg Take 1 tablet by mouth in the morning and 1 tablet in the evening. Take with meals. [facility] ibuprofen (IBU) tablet 800 mg 30 04:30: 00 09-25 04:33 :00 No 800mg 800 mg, Oral, ONCE, 1 dose, On 09/24/22 at 2230, ALLI [facility] No known medications 05 16:08: 37 No [facility] pantoprazol e 40 mg EC tablet 4-11 00:00: 00 12-29 00:00 :00 No 40mg Take 40 mg by mouth daily. [facility] metroNIDAZO LE 500 mg tablet 11-16 00:00: 00 12-29 00:00 :00 No [id number] 500mg Take 1 tablet by mouth every 12 (twelve) hours. [facility] ergocalcife rol, vitamin d2, 1,250 mcg (50,000 unit) capsule 1-15 00:00: 00 12-29 00:00 :00 No [id number] 32616Z Take 1 capsule by mouth weekly. [facility] ranitidine (ZANTAC) 150 mg tablet 2-11 00:00: 00 12-29 00:00 :00 No 150mg Take 1 tablet by mouth 2 (two) times daily. Follow up with your MD for further evaluation and treatment. [facility] Immunizations Ordered Immunization Name Filled Immunization Name Date Status Comments Source [facility] 2022-12-27 00:00:00 Completed [facility] 2022-12-27 00:00:[address] [facility] HPV9 2022-12-27 00:00:[address] [facility] HPV9 2022-12-27 00:00:[address] [facility] Meningococcal Polysaccharide (groups A, C, Y and W-135) conjugate vaccine (MCV4P) 2020-03-30 00:00:00 Completed Meningococcal Polysaccharide (groups A, C, Y and W-135) conjugate vaccine (MCV4P) 2020-03-30 00:00:[address] [facility] Meningococcal Polysaccharide (groups A, C, Y and W-135) conjugate vaccine (MCV4P) 2020-03-30 00:00:[address] [facility] Meningococcal Polysaccharide (groups A, C, Y and W-135) conjugate vaccine (MCV4P) 2020-03-30 00:00:[address] [facility] HPV9 2016-04-17 00:00:00 Completed Meningococcal Polysaccharide (groups A, C, Y and W-135) conjugate vaccine (MCV4P) 2016-04-17 00:00:00 Completed TDAP 2016-04-17 00:00:00 Completed HPV9 2016-04-17 00:00:[address] [facility] Meningococcal Polysaccharide (groups A, C, Y and W-135) conjugate vaccine (MCV4P) 2016-04-17 00:00:[address] [facility] TDAP 2016-04-17 00:00:[address] [facility] HPV9 2016-04-17 00:00:[address] [facility] Meningococcal Polysaccharide (groups A, C, Y and W-135) conjugate vaccine (MCV4P) 2016-04-17 00:00:[address] [facility] TDAP 2016-04-17 00:00:[address] [facility] HPV9 2016-04-17 00:00:[address] [facility] Meningococcal Polysaccharide (groups A, C, Y and W-135) conjugate vaccine (MCV4P) 2016-04-17 00:00:[address] [facility] TDAP 2016-04-17 00:00:[address] [facility] HEPATITIS A 2009-06-30 00:00:00 Completed Varicella (varivax)(chicken pox) 2009-06-30 00:00:00 Completed HEPATITIS A 2009-06-30 00:00:[address] [facility] Varicella (varivax)(chicken pox) 2009-06-30 00:00:[address] [facility] HEPATITIS A 2009-06-30 00:00:[address] [facility] Varicella (varivax)(chicken pox) 2009-06-30 00:00:[address] [facility] HEPATITIS A 2009-06-30 00:00:[address] [facility] Varicella (varivax)(chicken pox) 2009-06-30 00:00:[address] [facility] DTaP, Unspecified Formulation 2007-06-10 00:00:00 Completed HEPATITIS A 2007-06-10 00:00:00 Completed Hib-HbOC 2007-06-10 00:00:00 Completed MMR 2007-06-10 00:00:00 Completed Pneumococcal 7 Conjugate, PCV7 (Prevnar7) 2007-06-10 00:00:00 Completed IPV 2007-06-10 00:00:00 Completed DTaP, Unspecified Formulation 2007-06-10 00:00:[address] [facility] HEPATITIS A 2007-06-10 00:00:[address] [facility] Hib-HbOC 2007-06-10 00:00:[address] [facility] MMR 2007-06-10 00:00:[address] [facility] Pneumococcal 7 Conjugate, PCV7 (Prevnar7) 2007-06-10 00:00:[address] [facility] IPV 2007-06-10 00:00:[address] [facility] DTaP, Unspecified Formulation 2007-06-10 00:00:[address] [facility] HEPATITIS A 2007-06-10 00:00:[address] [facility] Hib-HbOC 2007-06-10 00:00:[address] [facility] MMR 2007-06-10 00:00:[address] [facility] Pneumococcal 7 Conjugate, PCV7 (Prevnar7) 2007-06-10 00:00:[address] [facility] IPV 2007-06-10 00:00:[address] [facility] DTaP, Unspecified Formulation 2007-06-10 00:00:[address] [facility] HEPATITIS A 2007-06-10 00:00:[address] [facility] Hib-HbOC 2007-06-10 00:00:[address] [facility] MMR 2007-06-10 00:00:[address] [facility] Pneumococcal 7 Conjugate, PCV7 (Prevnar7) 2007-06-10 00:00:[address] [facility] IPV 2007-06-10 00:00:[address] [facility] DTaP, Unspecified Formulation 2004-03-30 00:00:[address] [facility] HIB 4 Dose Schedule 2004-03-30 00:00:00 Completed MMR 2004-03-30 00:00:00 Completed IPV 2004-03-30 00:00:00 Completed Varicella (varivax)(chicken pox) 2004-03-30 00:00:00 Completed DTaP, Unspecified Formulation 2004-03-30 00:00:[address] [facility] HIB 4 Dose Schedule 2004-03-30 00:00:[address] [facility] MMR 2004-03-30 00:00:[address] [facility] IPV 2004-03-30 00:00:[address] [facility] Varicella (varivax)(chicken pox) 2004-03-30 00:00:[address] [facility] DTaP, Unspecified Formulation 2004-03-30 00:00:[address] [facility] HIB 4 Dose Schedule 2004-03-30 00:00:[address] [facility] MMR 2004-03-30 00:00:[address] [facility] IPV 2004-03-30 00:00:[address] [facility] Varicella (varivax)(chicken pox) 2004-03-30 00:00:[address] [facility] DTaP, Unspecified Formulation 2004-03-30 00:00:[address] [facility] HIB 4 Dose Schedule 2004-03-30 00:00:[address] [facility] MMR 2004-03-30 00:00:[address] [facility] IPV 2004-03-30 00:00:[address] [facility] Varicella (varivax)(chicken pox) 2004-03-30 00:00:[address] [facility] DTaP, Unspecified Formulation 2003 00:00:00 Completed Hep B, Adol or Pedi Dosage 2003 00:00:00 Completed HIB 4 Dose Schedule 2003 00:00:00 Completed Pneumococcal 7 Conjugate, PCV7 (Prevnar7) 2003 00:00:00 Completed IPV 2003 00:00:00 Completed DTaP, Unspecified Formulation 2003 00:00:[address] [facility] Hep B, Adol or Pedi Dosage 2003 00:00:[address] [facility] HIB 4 Dose Schedule 2003 00:00:[address] [facility] Pneumococcal 7 Conjugate, PCV7 (Prevnar7) 2003 00:00:[address] [facility] IPV 2003 00:00:[address] [facility] DTaP, Unspecified Formulation 2003 00:00:[address] [facility] Hep B, Adol or Pedi Dosage 2003 00:00:[address] [facility] HIB 4 Dose Schedule 2003 00:00:[address] [facility] Pneumococcal 7 Conjugate, PCV7 (Prevnar7) 2003 00:00:[address] [facility] IPV 2003 00:00:[address] [facility] DTaP, Unspecified Formulation 2003 00:00:[address] [facility] Hep B, Adol or Pedi Dosage 2003 00:00:[address] [facility] HIB 4 Dose Schedule 2003 00:00:[address] [facility] Pneumococcal 7 Conjugate, PCV7 (Prevnar7) 2003 00:00:[address] [facility] IPV 2003 00:00:[address] [facility] DTaP, Unspecified Formulation 2003 00:00:00 Completed Hep B, Adol or Pedi Dosage 2003 00:00:00 Completed HIB 4 Dose Schedule 2003 00:00:00 Completed Pneumococcal 7 Conjugate, PCV7 (Prevnar7) 2003 00:00:00 Completed IPV 2003 00:00:00 Completed DTaP, Unspecified Formulation 2003 00:00:[address] [facility] Hep B, Adol or Pedi Dosage 2003 00:00:[address] [facility] HIB 4 Dose Schedule 2003 00:00:[address] [facility] Pneumococcal 7 Conjugate, PCV7 (Prevnar7) 2003 00:00:[address] [facility] IPV 2003 00:00:[address] [facility] DTaP, Unspecified Formulation 2003 00:00:[address] [facility] Hep B, Adol or Pedi Dosage 2003 00:00:[address] [facility] HIB 4 Dose Schedule 2003 00:00:[address] [facility] Pneumococcal 7 Conjugate, PCV7 (Prevnar7) 2003 00:00:[address] [facility] IPV 2003 00:00:[address] [facility] DTaP, Unspecified Formulation 2003 00:00:[address] [facility] Hep B, Adol or Pedi Dosage 2003 00:00:[address] [facility] HIB 4 Dose Schedule 2003 00:00:[address] [facility] Pneumococcal 7 Conjugate, PCV7 (Prevnar7) 2003 00:00:[address] [facility] IPV 2003 00:00:[address] [facility] Hep B, Adol or Pedi Dosage 2003 00:00:00 Completed Hep B, Adol or Pedi Dosage 2003 00:00:[address] [facility] Hep B, Adol or Pedi Dosage 2003 00:00:[address] [facility] Hep B, Adol or Pedi Dosage 2003 00:00:[address] [facility] DTaP, Unspecified Formulation Unknown Completed [facility] HEPATITIS A Unknown Completed [facility] Hep B, Adol or Pedi Dosage Unknown Completed [facility] Hib-HbOC Unknown Completed [facility] HIB 4 Dose Schedule Unknown Completed [facility] HPV9 Unknown Completed [facility] Meningococcal Polysaccharide (groups A, C, Y and W-135) conjugate vaccine (MCV4P) Unknown Completed [facility] MMR Unknown Completed [facility] Pneumococcal 7 Conjugate, PCV7 (Prevnar7) Unknown Completed [facility] IPV Unknown Completed [facility] Varicella (varivax)(chicken pox) Unknown Completed [facility] TDAP Unknown Completed [facility] DTaP, Unspecified Formulation Unknown Completed [facility] HEPATITIS A Unknown Completed [facility] Hep B, Adol or Pedi Dosage Unknown Completed [facility] Hib-HbOC Unknown Completed [facility] HIB 4 Dose Schedule Unknown Completed [facility] HPV9 Unknown Completed [facility] Meningococcal Polysaccharide (groups A, C, Y and W-135) conjugate vaccine (MCV4P) Unknown Completed [facility] MMR Unknown Completed [facility] Pneumococcal 7 Conjugate, PCV7 (Prevnar7) Unknown Completed [facility] IPV Unknown Completed [facility] Varicella (varivax)(chicken pox) Unknown Completed [facility] TDAP Unknown Completed [facility] DTaP, Unspecified Formulation Unknown Completed [facility] HEPATITIS A Unknown Completed [facility] Hep B, Adol or Pedi Dosage Unknown Completed [facility] Hib-HbOC Unknown Completed [facility] HIB 4 Dose Schedule Unknown Completed [facility] HPV9 Unknown Completed [facility] Meningococcal Polysaccharide (groups A, C, Y and W-135) conjugate vaccine (MCV4P) Unknown Completed [facility] MMR Unknown Completed [facility] Pneumococcal 7 Conjugate, PCV7 (Prevnar7) Unknown Completed [facility] IPV Unknown Completed [facility] Varicella (varivax)(chicken pox) Unknown Completed [facility] TDAP Unknown Completed [facility] DTaP, Unspecified Formulation Unknown Completed [facility] HEPATITIS A Unknown Completed [facility] Hep B, Adol or Pedi Dosage Unknown Completed [facility] Hib-HbOC Unknown Completed [facility] HIB 4 Dose Schedule Unknown Completed [facility] HPV9 Unknown Completed [facility] [facility] Meningococcal Polysaccharide (groups A, C, Y and W-135) conjugate vaccine (MCV4P) Unknown Completed [facility] MMR Unknown Completed [facility] Pneumococcal 7 Conjugate, PCV7 (Prevnar7) Unknown Completed [facility] IPV Unknown Completed [facility] Varicella (varivax)(chicken pox) Unknown Completed [facility] TDAP Unknown Completed [facility] DTaP, Unspecified Formulation Unknown Completed [facility] HEPATITIS A Unknown Completed [facility] Hep B, Adol or Pedi Dosage Unknown Completed [facility] Hib-HbOC Unknown Completed [facility] HIB 4 Dose Schedule Unknown Completed [facility] HPV9 Unknown Completed [facility] Meningococcal Polysaccharide (groups A, C, Y and W-135) conjugate vaccine (MCV4P) Unknown Completed [facility] MMR Unknown Completed [facility] Pneumococcal 7 Conjugate, PCV7 (Prevnar7) Unknown Completed [facility] IPV Unknown Completed [facility] Varicella (varivax)(chicken pox) Unknown Completed [facility] TDAP Unknown Completed [facility] Vital Signs Vital Name Observation Time Observation Value Comments S ource Systolic blood pressure 2024-05-29 21:17:00 135 mm[Hg] [facility] Diastolic blood pressure 2024-05-29 21:17:00 91 mm[Hg] [facility] Heart rate 2024-05-29 21:17:00 102 /min [facility] Body temperature 2024-05-29 21:17:[address] [facility] Respiratory rate 2024-05-29 21:17:00 16 /min [facility] Body height 2024-05-29 21:17:00 152.4 cm [facility] Body weight 2024-05-29 21:17:00 79.833 kg [facility] BMI 2024-05-29 21:17:00 34.37 kg/m2 [facility] Oxygen saturation in Arterial blood by Pulse oximetry 2024-05-29 21:17:00 100 /min [facility] Systolic blood pressure 2023-10-27 03:54:00 135 mm[Hg] [facility] Diastolic blood pressure 2023-10-27 03:54:00 103 mm[Hg] [facility] Heart rate 2023-10-27 03:54:00 95 /min [facility] Body temperature 2023-10-27 03:54:[address] [facility] Respiratory rate 2023-10-27 03:54:00 18 /min [facility] Body height 2023-10-27 03:54:00 152.4 cm [facility] Body weight 2023-10-27 03:54:00 70.761 kg [facility] BMI 2023-10-27 03:54:00 30.47 kg/m2 [facility] Oxygen saturation in Arterial blood by Pulse oximetry 2023-10-27 03:54:00 100 /min [facility] Systolic blood pressure 2023-09-21 04:15:00 120 mm[Hg] [facility] Diastolic blood pressure 2023-09-21 04:15:00 68 mm[Hg] [facility] Heart rate 2023-09-21 04:15:00 93 /min [facility] Body temperature 2023-09-21 04:15:[address] [facility] Respiratory rate 2023-09-21 04:15:00 16 /min [facility] Body height 2023-09-21 04:15:00 152.4 cm [facility] Body weight 2023-09-21 04:15:00 70.761 kg [facility] BMI 2023-09-21 04:15:00 30.47 kg/m2 [facility] Oxygen saturation in Arterial blood by Pulse oximetry 2023-09-21 04:15:00 100 /min [facility] Systolic blood pressure 2023-07-17 03:00:00 122 mm[Hg] [facility] Diastolic blood pressure 2023-07-17 03:00:00 86 mm[Hg] [facility] Heart rate 2023-07-17 03:00:00 73 /min [facility] Respiratory rate 2023-07-17 03:00:00 16 /min [facility] Oxygen saturation in Arterial blood by Pulse oximetry 2023-07-17 03:00:00 100 /min [facility] Body weight 2023-07-17 00:43:00 69.854 kg [facility] BMI 2023-07-17 00:43:00 30.08 kg/m2 [facility] Body temperature 2023-07-17 00:43:[address] [facility] Body height 2023-07-17 00:43:00 152.4 cm [facility] Systolic blood pressure 2023-05-17 19:58:00 112 mm[Hg] [facility] Diastolic blood pressure 2023-05-17 19:58:00 76 mm[Hg] [facility] Heart rate 2023-05-17 19:58:00 71 /min [facility] Body temperature 2023-05-17 19:58:[address] [facility] Respiratory rate 2023-05-17 19:58:00 16 /min [facility] Body height 2023-05-17 19:58:00 152.4 cm [facility] Body weight 2023-05-17 19:58:00 66.225 kg [facility] BMI 2023-05-17 19:58:00 28.51 kg/m2 [facility] Oxygen saturation in Arterial blood by Pulse oximetry 2023-05-17 19:58:00 98 /min [facility] Body temperature 2023-01-05 14:10:[address] [facility] Systolic blood pressure 2023-01-05 14:00:00 119 mm[Hg] [facility] Diastolic blood pressure 2023-01-05 14:00:00 79 mm[Hg] [facility] Heart rate 2023-01-05 14:00:00 89 /min [facility] Respiratory rate 2023-01-05 14:00:00 15 /min [facility] Oxygen saturation in Arterial blood by Pulse oximetry 2023-01-05 14:00:00 96 /min [facility] Body height 2023-01-05 13:02:00 152.4 cm [facility] Body weight 2023-01-05 13:02:00 72.576 kg [facility] BMI 2023-01-05 13:02:00 31.25 kg/m2 [facility] Systolic blood pressure 2022-12-27 16:46:00 105 mm[Hg] [facility] Diastolic blood pressure 2022-12-27 16:46:00 70 mm[Hg] [facility] Heart rate 2022-12-27 16:46:00 71 /min [facility] Body temperature 2022-12-27 16:46:[address] [facility] Respiratory rate 2022-12-27 16:46:00 18 /min [facility] Body height 2022-12-27 16:46:00 152.4 cm [facility] Body weight 2022-12-27 16:46:00 73.539 kg [facility] BMI 2022-12-27 16:46:00 31.66 kg/m2 [facility] Systolic blood pressure 2022-09-28 02:27:00 133 mm[Hg] [facility] Diastolic blood pressure 2022-09-28 02:27:00 91 mm[Hg] [facility] Heart rate 2022-09-28 02:27:00 94 /min [facility] Body temperature 2022-09-28 02:27:[address] [facility] Respiratory rate 2022-09-28 02:27:00 16 /min [facility] Body height 2022-09-28 02:27:00 152.4 cm [facility] Body weight 2022-09-28 02:27:00 68.13 kg [facility] BMI 2022-09-28 02:27:00 29.33 kg/m2 [facility] Oxygen saturation in Arterial blood by Pulse oximetry 2022-09-28 02:27:00 100 /min [facility] Systolic blood pressure 2022-09-25 03:45:00 124 mm[Hg] [facility] Diastolic blood pressure 2022-09-25 03:45:00 79 mm[Hg] [facility] Heart rate 2022-09-25 03:45:00 81 /min [facility] Body temperature 2022-09-25 03:45:[address] [facility] Respiratory rate 2022-09-25 03:45:00 15 /min [facility] Body height 2022-09-25 03:45:00 152.4 cm [facility] Body weight 2022-09-25 03:45:00 68.04 kg [facility] BMI 2022-09-25 03:45:00 29.29 kg/m2 [facility] Oxygen saturation in Arterial blood by Pulse oximetry 2022-09-25 03:45:00 100 /min [facility] Systolic blood pressure 2021-12-29 20:04:00 134 mm[Hg] [facility] Diastolic blood pressure 2021-12-29 20:04:00 86 mm[Hg] [facility] Heart rate 2021-12-29 20:04:00 76 /min [facility] Body temperature 2021-12-29 20:04:[address] [facility] Respiratory rate 2021-12-29 20:04:00 18 /min [facility] Body height 2021-12-29 20:04:00 152.4 cm [facility] Body weight 2021-12-29 20:04:00 68.856 kg [facility] BMI 2021-12-29 20:04:00 29.65 kg/m2 [facility] Body mass index (BMI) [Percentile] Per age and sex 2021-12-29 20:04:00 93.49 % [facility] Procedures Procedure Date / Time Performed Performing Clinician Source URINALYSIS 2024-05-29 21:20:00 [facility] POCT TEST 2024-05-29 21:20:[address] [facility] POCT TEST 2023-10-27 04:27:[address] [facility] TEST, SERUM 2023-10-27 04:26:[address] [facility] COMP. METABOLIC PANEL (97050) 2023-10-27 04:26:[address] [facility] CBC WITH DIFF 2023-10-27 04:26:00 Gerard Nobles [facility] URINALYSIS 2023-10-27 04:26:00 Ger[facility] Nobles [facility] CONSENT/REFUSAL FOR DIAGNOSIS AND TREATMENT 2023-10-27 03:50:18 Doctor Unassigned, [place] [facility] ASSIGNMENT OF BENEFITS 2023-09-28 16:03:04 Docto r Unassigned, [place] [facility] NOTICE OF PRIVACY PRACTICES 2023-09-21 04:06:10 Doctor Unassigned, [place] [facility] CONSENT/REFUSAL FOR DIAGNOSIS AND TREATMENT 2023-09-21 04:05:29 Doctor Unassigned, [place] [facility] RAPID STREP SCREEN FOR GROUP A 2023-07-17 03:07:[address] [facility] POCT TEST 2023-07-17 01:53:[address] [facility] COMP. METABOLIC PANEL ([id number]) 2023-07-17 01:51:[address] [facility] CBC WITH DIFF 2023-07-17 01:51:00 Sandi Cardozo [facility] URINALYSIS 2023-07-17 01:51:00 Sandi Cardozo [facility] EBV-MONONUCLEOSIS SCREEN 2023-07-17 01:51:[address] [facility] CONSENT/REFUSAL FOR DIAGNOSIS AND TREATMENT 2023-07-17 00:37:35 Doctor Unassigned, [place] [facility] POCT TEST 2023-05-17 20:06:[address] [facility] POCT URINALYSIS 2023-05-17 20:00:00 Farooq Davis [facility] RAPID STREP SCREEN FOR GROUP A 2023-01-05 13:18:[address] [facility] RAPID INFLUENZA A/B 2023-01-05 13:09:[address] [facility] COVID-19 (ID NOW RAPID TESTING) 2023-01-05 13:09:[address] [facility] THYROID STIMULATING HORMONE 2022-12-27 17:10:[address] [facility] CBC WITH DIFF 2022-12-27 17:10:[address] [facility] GLYCOSYLATED HEMOGLOBIN (A1C) 2022-12-27 17:10:[address] [facility] RUBELLA SCREEN IGG 2022-12-27 17:10:[address] [facility] HCV ANTIBODY 2022-12-27 17:10:00 [facility] CHLAMYDIA AMPLIFIED ASSAY 2022-12-27 17:10:[address] [facility] HIV 1/2 AG-AB WITH REFLEX 2022-12-27 17:10:[address] [facility] SYPHILIS IGG/IGM 2022-12-27 17:10:[address] [facility] GARDASIL 9 (HPV 9V) VACCINE 2022-12-27 16:53:[address] [facility] POCT TEST 2022-12-27 16:47:[address] [facility] ASSIGNMENT OF BENEFITS 2022-12-27 15:53:31 Docto r Unassigned, [place] [facility] CONSENT/REFUSAL FOR DIAGNOSIS AND TREATMENT 2022-09-28 02:20:10 Doctor Unassigned, [place] [facility] POCT TEST 2022-09-25 04:35:[address] [facility] NOTICE OF PRIVACY PRACTICES 2022-09-25 03:45:44 Doctor Unassigned, [place] [facility] CONSENT/REFUSAL FOR DIAGNOSIS AND TREATMENT 2022-09-25 03:44:56 Doctor Unassigned, [place] [facility] Encounters Start Date/Time End Date/Time Encounter Type Admission Type Attending Clinicians Care Facility Care Department Encounter ID Source 2021-06-26 08:58:[address] [facility] [id number] [facility] 2021-06-24 18:43:46 Outpatient LES HUGGINS [facility] [id number] [facility] 2024-07-28 09:45:00 2024-07-28 09:45:00 Outpatient PHAN GARAY [facility] [id number] [facility] 2024-07-28 09:07:05 2024-07-28 09:07:05 Outpatient [facility] [id number] Marquis Hart 2024-05-29 16:19:00 2024-05-29 17:53:00 Emergency X Kristian TERRELL K [facility] ERT [id number] [facility] 2024-05-29 16:19:00 2024-05-29 17:53:00 Emergency Kristian Terrell [facility] 1.2840.114 350.1.13.10 4.2.7.2.686 [id number] [facility] 2023-11-29 15:30:00 2023-11-29 15:30:00 Outpatient ALAN BAEZA [id number] Yady López 2023-10-26 21:57:00 2023-10-26 23:58:00 Emergency X GERARD NOBLES SHINTA [facility] ERT [id number] [facility] 2023-10-26 21:57:00 2023-10-26 23:58:00 Emergency Gerard Nobles [facility] 1.840.114 350.1.13.10 4.2.7.2.686 [id number] [facility] 2023-10-16 15:53:57 2023-10-16 15:53:57 Outpatient [facility] [id number] Marquis Hart 2023-09-28 10:15:00 2023-09-28 10:15:00 Outpatient CATRACHITA PRATHER [facility] [id number] [facility] 2023-09-28 00:00:00 2023-09-28 00:00:00 Orders Only Doctor Unassigned, [place] [facility] 1.2840.114 350.1.13.10 4.2.7.2.686 [id number] [facility] 2023-09-20 22:18:00 2023-09-20 23:14:00 Emergency X ROBERTO GRIFFITH [facility] ERT [id number] [facility] 2023-09-20 22:18:00 2023-09-20 23:14:00 Emergency William Griffithnell [facility] ..840.114 350.1.13.10 4.2.7.2.686 [id number] [facility] 2023-07-16 18:45:00 2023-07-16 22:54:00 Emergency X WILLIAM GRIFFITHNELL [facility] ERT [id number] [facility] 2023-07-16 18:45:00 2023-07-16 22:54:00 Emergency [facility]Sandi simpson [facility] ..840.114 350.1.13.10 4.2.7.2.686 [id number] [facility] 2023-07-03 14:00:00 2023-07-03 14:00:00 Outpatient R VIANEY GARCIA [facility] [id number] [facility] 2023-05-17 15:00:00 2023-05-17 15:24:56 Outpatient R FAROOQ DAVIS [facility] [id number] [facility] 2023-05-17 15:00:00 2023-05-17 15:20:00 Urgent Care Farooq Davis Unknown, Attending [facility] ..840.114 350.1.13.10 4.2.7.2.686 [id number] [facility] 2023-03-27 13:30:00 2023-03-27 13:30:00 Outpatient R JOYCE LOPEZ [facility] [id number] [facility] 2023-03-13 00:00:00 2023-03-13 00:00:00 Telephone Joyce Lopez [facility]WN TECHNICIAN [facility] ..840.114 350.1.13.10 4.2.7.2.686 [id number] [facility] 2023-01-05 08:03:00 2023-01-05 09:46:00 Emergency X RBOERTO GRIFFITH [facility] ERT [id number] [facility] 2023-01-05 08:03:00 2023-01-05 09:46:00 Emergency Roberto Griffith [facility] 1.2840.114 350.1.13.10 4.2.7.2.686 [id number] [facility] 2022-12-27 11:00:00 2022-12-27 12:13:57 Outpatient R JOYCE LOPEZ [facility] [id number] [facility] 2022-12-27 11:00:00 2022-12-27 12:13:57 Office Visit Joyce Lpoez [facility] TECHNICIAN [facility] 1.20.114 350.1.13.10 4.2.7.2.686 [id number] [facility] 2022-12-27 00:00:00 2022-12-27 00:00:00 Orders Only Doctor Unassigned, [place] [facility] 1.2840.114 350.1.13.10 4.2.7.2.686 [id number] [facility] 2022-09-27 20:33:00 2022-09-27 21:45:00 Emergency X ALEXIS CAMPOS [facility] ERT [id number] [facility] 2022-09-27 20:33:00 2022-09-27 21:45:00 Emergency Alexis Campos [facility] 1.2840.114 350.1.13.10 4.2.7.2.686 [id number] [facility] 2022-09-27 10:15:00 2022-09-27 10:15:00 Outpatient R ANNABELLE JO [facility] [id number] [facility] 2022-09-24 21:55:00 2022-09-24 23:00:00 Emergency X BANDAR CASTILLO [facility] ERT [id number] [facility] 2022-09-24 21:55:00 2022-09-24 23:00:00 Emergency Bandar Castillo S [facility] 1..114 350.1.13.10 4.2.7.2.686 [id number] [facility] 2022-01-06 09:56:00 2022-01-06 09:56:00 Outpatient Facundo Almanzar [facility] [id number] [facility] 2021-12-30 00:00:00 2021-12-30 00:00:00 Telephone Mayra Saavedra [facility] LAWN TECHNICIAN [facility] 1..114 350.1.13.10 4.2.7.2.686 [id number] [facility] 2021-12-29 15:15:00 2021-12-29 15:46:42 Outpatient R MAYRA SAAVEDRA [facility] [id number] [facility] 2021-12-29 15:15:00 2021-12-29 15:46:42 Office Visit Mayra Saavedra [facility]WN TECHNICIAN [facility] 1..114 350.1.13.10 4.2.7.2.686 [id number] [facility] 2021-12-29 00:00:00 2021-12-29 00:00:00 Orders Only Doctor Unassigned, [place] [facility] 1..114 350.1.13.10 4.2.7.2.686 [id number] [facility] 2021-12-22 09:45:00 2021-12-22 09:45:00 Outpatient Cecily COONRENETTA [facility] [id number] [facility] 2021-12-22 09:45:00 2021-12-22 09:45:00 Outpatient RENETTA JULIEN [facility] [id number] [facility] 2021-12-14 15:00:00 2021-12-14 15:00:00 Outpatient Cecily EUGENEWOODROWVIANEY [facility] [id number] [facility] 2021-12-08 08:53:50 2021-12-08 23:59:00 Outpatient Cecily COON RENETTA [facility] [id number] [facility] 2021-12-08 08:45:00 2021-12-08 10:02:07 Outpatient Cecily COON RENETTA [facility] [id number] [facility] 2021-12-08 08:45:00 2021-12-08 10:02:07 Outpatient Cecily COON RENETTA [facility] [id number] [facility] 2021-12-08 08:45:00 2021-12-08 09:00:00 [facility] 1..840.114 350.1.13.10 4.2.7.2.686 [id number] [facility] 2021-12-01 14:15:00 2021-12-01 14:15:00 Outpatient RENETTA JULIEN [facility] [id number] [facility] 2021-12-01 14:15:00 2021-12-01 14:15:00 Outpatient RENETTA JULIEN [facility] [id number] [facility] 2021-11-29 09:15:00 2021-11-29 09:30:00 Superintendent [employer] Visit 2, [facility] Annabelle Jo [facility] 1.2.840.114 350.1.13.10 4.2.7.2.686 [id number] [facility] 2021-11-29 09:15:00 2021-11-29 09:15:00 Outpatient Cecily JO ANNABELLE [facility] [id number] [facility] 2021-11-29 09:15:00 2021-11-29 09:15:00 Outpatient Cecily JOMARGACY [facility] [id number] [facility] 2021-11-29 08:30:00 2021-11-29 08:30:00 Office Visit TylorMargacy [facility] 1..840.114 350.1.13.10 4.2.7.2.686 [id number] [facility] 2021-11-24 00:00:00 2021-11-24 00:00:00 Orders Only Doctor Unassigned, [place] [facility] 1..840.114 350.1.13.10 4.2.7.2.686 [id number] [facility] 2021-11-17 15:00:00 2021-11-17 15:00:00 [id number] 2021-11-09 09:00:00 2021-11-09 09:00:00 Outpatient Cecily JO [facility] [id number] [facility] 2021-09-21 15:30:00 2021-09-21 15:41:13 Nurse Visit Nurse, [facility] Vianey Garcia [facility] 1..840.114 350.1.13.10 4.2.7.2.686 [id number] [facility] 2021-09-21 15:30:00 2021-09-21 15:30:00 Outpatient VIANEY RUIZ [facility] [id number] [facility] 2021-09-13 15:30:00 2021-09-13 15:30:00 Outpatient R VIANEY GARCIA [facility] [id number] [facility] 2021-08-03 15:30:00 2021-08-03 15:30:00 Outpatient R [facility] [id number] [facility] 2021-05-11 15:44:35 2021-05-11 16:44:44 Nurse Visit Nurse, [facility] 1.2.840.114 350.1.13.10 4.2.7.2.686 [id number] [facility] 2021-05-11 08:00:00 2021-05-11 08:00:00 Outpatient R [facility] [id number] [facility] 2021-05-11 00:00:00 2021-05-11 00:00:00 Orders Only Doctor Unassigned, [place] [facility] 1..840.114 350.1.13.10 4.2.7.2.686 [id number] [facility] 2021-05-10 08:00:00 2021-05-10 08:00:00 Outpatient R [facility] [id number] [facility] 2021-05-03 15:00:00 2021-05-03 15:00:00 Outpatient R [facility] [id number] [facility] 2021-04-30 00:00:00 2021-04-30 00:00:00 Nurse Triage Lucrecia Williamson [facility] 1..840.114 350.1.13.10 4.2.7.2.686 [id number] [facility] [facility] 2021-[facility]-18 15:30:00 2021-03-18 15:30:00 Outpatient R [facility] [id number] [facility] 2021-03-16 14:30:00 2021-03-16 14:30:00 Outpatient R [facility] [id number] [facility] 2021-03-16 00:00:00 2021-03-16 00:00:00 Telephone AdVianey teague [facility] 1.2.840.114 350.1.13.10 4.2.7.2.686 [id number] 134 [id number] [facility] 2021-02-25 10:15:00 2021-02-25 10:15:00 Outpatient Cecily COON RENETTA [facility] [id number] [facility] 2021-02-17 15:00:00 2021-02-17 15:00:00 Outpatient Cecily COON RENETTA [facility] [id number] [facility] 2021-02-11 10:00:00 2021-02-11 10:00:00 Outpatient Cecily [facility]ON [facility] [id number] [facility] 2020-12-15 14:23:49 2020-12-15 14:38:49 Superintendent Geophysical Laboratory Visit 2, [facility] Lab AdVianey teague [facility] 1.2.840.114 350.1.13.10 4.2.7.2.686 [id number] [facility] 2020-12-15 13:51:57 2020-12-15 14:18:57 Nurse Visit Nurse, [facility] Women[facility] AdVianey [facility] 1.2.840.114 350.1.13.10 4.2.7.2.686 [id number] [facility] 2020-12-15 14:00:00 2020-12-15 14:00:00 Outpatient R RADHA [facility] [id number] [facility] 2020-12-06 13:30:00 2020-12-06 13:30:00 Outpatient R RADHA [facility] [id number] [facility] 2020-11-20 17:26:00 2020-11-20 17:37:00 Emergency Belinda Hall [facility] 1.2840.114 350.1.13.10 4.2.7.2.686 [id number] [facility] 2020-11-20 00:00:00 2020-11-20 00:00:00 Orders Only Doctor Unassigned, [place] [facility] 1.2.840.114 350.1.13.10 4.2.7.2.686 [id number] [id number] [facility] 2020-11-16 00:00:00 2020-11-16 00:00:00 Case Management AdVianey teague [facility] 1.2.840.114 350.1.13.10 4.2.7.2.686 [id number] [facility] 2020-11-09 13:35:56 2020-11-09 15:09:56 Office Visit AdwoodrowVianey [facility] 1.2.840.114 350.1.13.10 4.2.7.2.686 [id number] [facility] 2020-11-09 13:30:00 2020-11-09 13:30:00 Outpatient R VIANEY GARCIA [facility] [id number] [facility] 2020-11-08 15:45:00 2020-11-08 15:45:00 Outpatient ANNABELLE WISE [facility] [id number] [facility] 2020-11-05 15:00:00 2020-11-05 15:00:00 Outpatient Cecily GARCIA VIANEY [facility] [id number] [facility] 2020-11-04 14:30:00 2020-11-04 14:30:00 Outpatient R RADHA VIANEY [facility] [id number] [facility] 2020-11-02 00:00:00 2020-11-02 00:00:00 [facility] 1.2.840.114 350.1.13.10 4.2.7.2.686 [id number] [facility] 2020-09-23 00:00:00 2020-09-23 00:00:00 Orders Only Doctor Unassigned, [place] [facility] 1.2.840.114 350.1.13.10 4.2.7.2.686 [id number] [facility] 2020-09-15 00:00:00 2020-09-15 00:00:00 Case Management Adum, Vianey NAVARRETE [facility] 1.2.840.114 350.1.13.10 4.2.7.2.686 [id number] [facility] 2020-09-10 00:00:00 2020-09-10 00:00:00 Case Management Adum, Vianey Hernandez [facility] 1.2.840.114 350.1.13.10 4.2.7.2.686 [id number] [facility] 2020-09-09 10:14:30 2020-09-09 10:29:30 Superintendent Geophysical Laboratory Visit 2, [facility] Lab Adum, Vianey Hernandez [facility] 1.2.840.114 350.1.13.10 4.2.7.2.686 [id number] [facility] 2020-09-09 08:31:02 2020-09-09 09:58:53 [facility] 1.2.840.114 350.1.13.10 4.2.7.2.686 [id number] [facility] 2020-09-09 09:00:00 2020-09-09 09:00:00 Outpatient R VIANEY GARCIA [facility] [id number] [facility] 2020-09-09 00:00:00 2020-09-09 00:00:00 Orders Only Doctor Unassigned, [place] [facility] 1.20.114 350.1.13.10 4.2.7.2.686 [id number] [facility] 2020-06-15 00:00:00 2020-06-15 00:00:00 Orders Only Doctor Unassigned, [place] [facility] 1.2840.114 350.1.13.10 4.2.7.2.686 [id number] [id number] [facility] 2020-06-07 15:12:17 2020-06-07 15:27:17 Office Visit Renetta Coon [facility] 1..114 350.1.13.10 4.2.7.2.686 [id number] [facility] 2020-06-07 15:00:00 2020-06-07 15:00:00 Outpatient R RENETTA COON [facility] [id number] [facility] 2020-05-24 05:58:00 2020-05-24 09:24:00 Hospital Encounter Aguilar Les Hernandez [facility] 1.114 350.1.13.10 4.2.7.2.686 [id number] [facility] 2020-05-22 13:24:32 2020-05-22 13:44:32 Laboratory Only Lab, Adc Fam Pob I Adam [facility] Professio nal Office Building One 1.114 350.1.13.10 4.2.7.2.686 [id number] [facility] 2020-05-22 13:20:00 2020-05-22 13:20:00 Outpatient Cecily RED [facility] [id number] [facility] 2020-05-21 11:00:00 2020-05-21 11:00:00 Outpatient R PANKAJ REESE [facility] [id number] [facility] 2020-05-17 00:00:00 2020-05-17 00:00:00 Prep For Surgery Les Huggins [facility] Surgical Specialti yamilex Cameron 1.2.840.114 350.1.13.10 4.2.7.2.686 [id number] [facility] 2020-05-13 11:14:45 2020-05-13 11:39:37 Office Visit Renetta Coon [facility] Surgical Specialti yamilex Cameron 1.2840.114 350.1.13.10 4.2.7.2.686 [id number] [facility] 2020-05-13 11:00:00 2020-05-13 11:00:00 Outpatient R LES HUGGINS [facility] [id number] [facility] 2020-05-13 00:00:00 2020-05-13 00:00:00 Letter (Out) Renetta Coon [facility] Surgical Special yamilex Cameron 1.2840.114 350.1.13.10 4.2.7.2.686 [id number] [facility] 2020-05-13 00:00:00 2020-05-13 00:00:00 Letter (Out) Renetta Coon [facility] Surgical Specialti yamilex Cameron 1.2.840.114 350.1.13.10 4.2.7.2.686 [id number] [facility] 2020-05-05 15:15:00 2020-05-05 23:59:00 Hospital Encounter Les Huggins [facility] 1.2.840.114 350.1.13.10 4.2.7.2.686 [id number] [facility] 2020-05-05 00:00:00 2020-05-05 00:00:00 Outpatient R HUGGINS LES [facility] [id number] [facility] 2020-04-15 00:00:00 2020-04-15 00:00:00 Orders Only Doctor Unassigned, [place] [facility] 1.2.840.114 350.1.13.10 4.2.7.2.686 [id number] [facility] 2020-04-08 00:00:00 2020-04-08 00:00:00 Telephone Les Huggins David [facility] Surgical Specialti [facility] 1.2.840.114 350.1.13.10 4.2.7.2.686 [id number] [facility] 2020-04-05 14:45:57 2020-04-05 15:00:57 Office Visit Renetta Coon [facility] 1.2.840.114 350.1.13.10 4.2.7.2.686 [id number] [facility] 2020-04-05 15:00:00 2020-04-05 15:00:00 Outpatient RENETTA JULIEN [facility] [id number] [facility] 2020-04-01 14:00:00 2020-04-01 14:00:00 Outpatient RENETTA JULIEN [facility] [id number] [facility] 2020 11:37:49 2020 13:13:00 Emergency Mariaa Rae [facility] 1.2.840.114 350.1.13.10 4.2.7.2.686 [id number] [facility] 2020 11:37:49 2020 13:13:00 Emergency X MARIAA RAE [facility] ERT [id number] [facility] Results Test Description Test Time Test Comments Results Result Co mments Source [facility], [id number] 04:54:53* Test Item Value Reference Range Interpretation Comme nts PREG SERUM (test code = 5095714879) Negative ZORAIDA (test code = ZORAIDA) Less than 10 IU/L. ?If low titer or ectopic is suspected, resubmit specimen in 48-72 hours. [facility]. Metabolic Panel (70131)2023-10-27 04:49:57* Test Item Value Reference Range Interpretation Comme nts NA (test code = 5707519915) 139 mmol/L 135-145 K (test code = 7323857989) 4.0 mmol/L 3.5-5.0 CL (test code = 9795012772) 108 mmol/L 98-108 CO2 TOTAL (test code = 1241042499) 25 mmol/L 23-31 AGAP (test code = 4056401392) 6 2-16 BUN (test code = 9100901189) 14 mg/dL 7-23 GLUCOSE (test code = 3089712541) 97 mg/dL 70-110 CREATININE (test code = 2160-0) 0.56 mg/dL 0.50-1.04 TOTAL BILI (test code = 1971755002) 0.7 mg/dL 0.1-1.1 CALCIUM (test code = 3175500037) 8.8 mg/dL 8.6-10.6 T PROTEIN (test code = 9261626603) 8.4 g/dL 6.3-8.2 H ALBUMIN (test code = 4861819210) 4.1 g/dL 3.5-5.0 ALK PHOS (test code = 4052417742) 65 U/L 34-122 ALTv (test code = 1742-6) 21 U/L 5-35 AST(SGOT) (test code = 3947059050) 37 U/L 13-40 eGFR (test code = 37032-9) 134.2 mL/min/1.73m2 CKD-EPI eGFR (2020). Assuming creatinine has been stable day-to-day for at least three months, the eGFR indicates Category G1 (>= 90 mL/min/1.73 m2) Lab Interpretation (test code = 08739-9) Abnormal [facility] with [id number] 04:36:34* Test Item Value Reference Range Interpretation [...] 33.6 g/dL 31.6-35.1 RDW-SD (test code = 25491-3) 43.0 fL 39.0-49.9 RDW-CV (test code = 788-0) 13.5 % 12.0-15.5 PLT (test code = 777-3) 241 166-358 MPV (test code = 95257-6) 12.1 fL 9.5-12.9 NRBC/100 WBC (test code = 5503727444) 0.0 0.0-10.0 NRBC x10^3 (test code = 7683295529) See_Comment [Automated messa ge] The system which generated this result transmitted reference range: 10*3/?L. The reference range was not used to interpret this result as normal/abnormal. GRAN MAT (NEUT) % (test code = 770-8) 67.8 % IMM GRAN % (test code = 9442063137) 0.60 % LYMPH % (test code = 736-9) 21.2 % MONO % (test code = 5905-5) 8.9 % EOS % (test code = 713-8) 1.0 % BASO % (test code = 706-2) 0.5 % GRAN MAT x10^3(ANC) (test code = 1923268602) 8.58 10*3/uL 1.88-7.09 H IMM GRAN x10^3 (test code = 1637399462) 0.07 10*3/uL 0.00-0.06 H LYMPH x10^3 (test code = 731-0) 2.67 10*3/uL 1.32-3.29 MONO x10^3 (test code = 742-7) 1.12 10*3/uL 0.33-0.92 H EOS x10^3 (test code = 711-2) 0.12 10*3/uL 0.03-0.39 BASO x10^3 (test code = 704-7) 0.06 10*3/uL 0.01-0.07 Lab Interpretation (test code = 45135-7) Abnormal [facility] [id number] 04:27:00* Test Item Value Reference Range Interpretation Comme nts POCT PREG (test code = 1605) Negative On board controls acceptable with C Line (test code = 3574) Yes POCT PREG LOT # (test code = 3575) [id number] POCT PREG TEST DATE ( test code = 3576) 10-01-2024 Lab Interpretation (test cod e = 87341-0) Normal [facility]. METABOLIC PANEL (14060)2023-07-17 02:17:29* Test Item Value Reference Range Interpretation Comme nts NA (test code = 1214405504) 140 mmol/L 135-145 K (test code = 5262245922) 3.9 mmol/L 3.5-5.0 CL (test code = 4223893334) 103 mmol/L 98-108 CO2 TOTAL (test code = 2585000813) 29 mmol/L 23-31 AGAP (test code = 6497934933) 8 2-16 BUN (test code = 5168186022) 10 mg/dL 7-23 GLUCOSE (test code = 0770232210) 95 mg/dL 70-110 CREATININE (test code = 4649296432) 0.84 mg/dL 0.50-1.04 TOTAL BILI (test code = 3029984812) 0.3 mg/dL 0.1-1.1 CALCIUM (test code = 5137998864) 9.1 mg/dL 8.6-10.6 T PROTEIN (test code = 0865520448) 8.4 g/dL 6.3-8.2 H ALBUMIN (test code = 0533733431) 4.5 g/dL 3.5-5.0 ALK PHOS (test code = 0251164588) 80 U/L 34-122 ALTv (test code = 1742-6) 16 U/L 5-35 AST(SGOT) (test code = 4571610000) 22 U/L 13-40 eGFR (test code = 81621-9) 102.2 mL/min/1.73m2 CKD-EPI eGFR (2020). Assuming creatinine has been stable day-to-day for at least three months, the eGFR indicates Category G1 (>= 90 mL/min/1.73 m2) Lab Interpretation (test code = 89656-4) Abnormal [facility] WITH [id number] 02:15:48* Test Item Value Reference Range Interpretation Comme nts WBC (test code = 6690-2) 11.54 See_Comment H [Automated Data [employer]] The system which generated this result transmitted reference range: 4.30 - 11.10 10*3/?L. The reference range was not used to interpret this result as normal/abnormal. RBC (test code = 789-8) 4.87 See_Comment [Automated Data [employer]] The system which generated this result transmitted [...] 33.3 g/dL 31.6-35.1 RDW-SD (test code = 75464-5) 42.6 fL 39.0-49.9 RDW-CV (test code = 788-0) 13.2 % 12.0-15.5 PLT (test code = 777-3) 277 See_Comment [Automated Data [employer]] The system which generated this result transmitted reference range: 166 - 358 10*3/?L. The reference range was not used to interpret this result as normal/abnormal. MPV (test code = 41489-4) 10.5 fL 9.5-12.9 NRBC/100 WBC (test code = 7625698871) 0.0 See_Comment [Automated me ssage] The system which generated this result transmitted reference range: 0.0 - 10.0 /100 WBCs. The reference range was not used to interpret this result as normal/abnormal. NRBC x10^3 (test code = 9536415619) See_Comment [Automated messa ge] The system which generated this result transmitted reference range: 10*3/?L. The reference range was not used to interpret this result as normal/abnormal. GRAN MAT (NEUT) % (test code = 770-8) 60.3 % IMM GRAN % (test code = 0775208802) 0.30 % LYMPH % (test code = 736-9) 25.9 % MONO % (test code = 5905-5) 10.8 % EOS % (test code = 713-8) 2.0 % BASO % (test code = 706-2) 0.7 % GRAN MAT x10^3(ANC) (test code = 0636033187) 6.95 10*3/uL 1.88-7.09 IMM GRAN x10^3 (test code = 2851943954) 0.04 10*3/uL 0.00-0.06 LYMPH x10^3 (test code = 731-0) 2.99 10*3/uL 1.32-3.29 MONO x10^3 (test code = 742-7) 1.25 10*3/uL 0.33-0.92 H EOS x10^3 (test code = 711-2) 0.23 10*3/uL 0.03-0.39 BASO x10^3 (test code = 704-7) 0.08 10*3/uL 0.01-0.07 H Lab Interpretation (test code = 60218-1) Abnormal [facility] [id number] 01:53:00* Test Item Value Reference Range Interpretation Comme nts POCT PREG (test code = 1605) Negative On board controls acceptable with C Line (test code = 3574) Yes POCT PREG LOT # (test code = 3576) [id number] POCT PREG TEST DATE ( test code = 3576) 2024-11-29 Lab Interpretation (test cod e = 81542-1) Normal [facility] [id number] 20:06:00* Test Item Value Reference Range Interpretation Comme nts POCT PREG (test code = 1605) Negative On board controls acceptable with C Line (test code = 3574) Yes POCT PREG LOT # (test code = 3575) POCT PREG TEST DATE ( test code = 3576) [facility] URINALYSIS W SPECIFIC [id number] 20:01:00* Test Item Value Reference Range Interpretation [...] U APPEAR (test code = 3267) cloudy [facility] SCREEN (ANGELIC) [id number] 19:07:18 * Test Item Value Reference Range Interpretation Comme [facility] Rubella screen IgG (test code = 2931911915) Positive Negative ZORAIDA (test code = ZORAIDA) Positive - Indicat es the patient was exposed to Rubella through infection or vaccination.Negative - Indicates the patient could be susceptible to Rubella infection.Equivocal - A second specimen should be sent. [facility] SCREEN (ANGELIC) [id number] 19:07:18 * Test Item Value Reference Range Interpretation Comme [facility] Rubella screen IgG (test code = 7839827262) Positive Negative ZORAIDA (test code = ZORAIDA) Positive - Indicat es the patient was exposed to Rubella through infection or vaccination.Negative - Indicates the patient could be susceptible to Rubella infection.Equivocal - A second specimen should be sent. [facility] ONLY - SYPHILIS [id number] 17:26:01* Test Item Value Reference Range Interpretation Comme nts Syphilis IgG/IgM (test code = 48930-3) Non-reactive Non-reactive ZORAIDA (test code = ZORAIDA) Non-reactive - No serologic evidence of T. pallidum infection. Cannot exclude incubating or early syphilis. Submit a second specimen in 2-4 weeks if syphilis is clinically suspected. Equivocal - Further testing to follow. Reactive - Further testing to follow. Lab Interpretation (test code = 44262-8) Normal [facility] ONLY - SYPHILIS [id number] 17:26:01* Test Item Value Reference Range Interpretation Comme nts Syphilis IgG/IgM (test code = 26169-4) Non-reactive Non-reactive ZORAIDA (test code = ZORAIDA) Non-reactive - No serologic evidence of T. pallidum infection. Cannot exclude incubating or early syphilis. Submit a second specimen in 2-4 weeks if syphilis is clinically suspected. Equivocal - Further testing to follow. Reactive - Further testing to follow. Lab Interpretation (test code = 48221-4) Normal [facility] Hospital[facility]YCOSYLATED HEMOGLOBIN (A1C)2022-12-28 15:57:54* Test Item Value Reference Range Interpretation Comme nts HGB A1C (test code = 4548-4) 5.5 % 4.0-5.7 ZORAIDA (test code = ZORAIDA) Reference RangesNormal: <5.7%Prediabetes: 5.7 - 6.4%Diabetes: > 6.5% Lab Interpretation (test code = 29926-6) Normal [facility]ATED HEMOGLOBIN (A1C)2022-12-28 15:57:54* Test Item Value Reference Range Interpretation Comme nts HGB A1C (test code = 4548-4) 5.5 % 4.0-5.7 ZORAIDA (test code = ZORAIDA) Reference RangesNormal: <5.7%Prediabetes: 5.7 - 6.4%Diabetes: > 6.5% Lab Interpretation (test code = 17219-0) Normal [facility] AG-AB WITH [id number] 12:20:58* Test Item Value Reference Range Interpretation Comme nts HIV Semi-quantitative (test code = 80529-6) 0.07 Negative ZORAIDA (test code = ZORAIDA) Non-reactive for HIV-1 antigen and HIV-1/HIV-2 antibodies. ?No laboratory evidence of HIV infection. ?Repeat in 2-4 weeks if acute HIV infection is suspected. [facility] AG-AB WITH [id number] 12:20:58* Test Item Value Reference Range Interpretation Comme nts HIV Semi-quantitative (test code = 31431-7) 0.07 Negative ZORAIDA (test code = ZORAIDA) Non-reactive for HIV-1 antigen and HIV-1/HIV-2 antibodies. ?No laboratory evidence of HIV infection. ?Repeat in 2-4 weeks if acute HIV infection is suspected. [facility] [id number] 09:03:31* Test Item Value Reference Range Interpretation Comme nts HCV Ab (test code = 68936-1) Negative HCV Semi-Quantitative (test code = 43209-9) 0.[address] [facility] [id number] 09:03:31* Test Item Value Reference Range Interpretation Comme nts HCV Ab (test code = 99413-2) Negative HCV Semi-Quantitative (test code = 95548-6) 0.[address] [facility] HospitalTHYROID STIMULATING [id number] 08:28:04 * Test Item Value Reference Range Interpretation Comme nts TSH (test code = 5327165275) 0.99 See_Comment [Automated messa ge] The system which generated this result transmitted reference range: 0.45 - 4.70 mIU/L. The reference range was not used to interpret this result as normal/abnormal. Lab Interpretation (test code = 47122-9) Normal [facility] HospitalTHYROID STIMULATING [id number] 08:28:04 * Test Item Value Reference Range Interpretation Comme nts TSH (test code = 2700268961) 0.99 See_Comment [Automated messa ge] The system which generated this result transmitted reference range: 0.45 - 4.70 mIU/L. The reference range was not used to interpret this result as normal/abnormal. Lab Interpretation (test code = 23933-5) Normal [facility] WITH [id number] 07:54:04* Test Item Value Reference Range Interpretation [...] 32.7 g/dL 31.6-35.1 RDW-SD (test code = 43414-6) 42.5 fL 39.0-49.9 RDW-CV (test code = 788-0) 13.0 % 12.0-15.5 PLT (test code = 777-3) 232 See_Comment [Automated messa ge] The system which generated this result transmitted reference range: 166 - 358 10*3/?L. The reference range was not used to interpret this result as normal/abnormal. MPV (test code = 46130-3) 11.5 fL 9.5-12.9 NRBC/100 WBC (test code = 0475667851) 0.0 See_Comment [Automated [employer] ssage] The system which generated this result transmitted reference range: 0.0 - 10.0 /100 WBCs. The reference range was not used to interpret this result as normal/abnormal. NRBC x10^3 (test code = 7038490847) See_Comment [Automated messa ge] The system which generated this result transmitted reference range: 10*3/?L. The reference range was not used to interpret this result as normal/abnormal. GRAN MAT (NEUT) % (test code = 770-8) 57.6 % IMM GRAN % (test code = 2408209119) 0.20 % LYMPH % (test code = 736-9) 29.9 % MONO % (test code = 5905-5) 8.6 % EOS % (test code = 713-8) 2.7 % BASO % (test code = 706-2) 1.0 % GRAN MAT x10^3(ANC) (test code = 4810194817) 5.43 10*3/uL 1.88-7.09 IMM GRAN x10^3 (test code = 1281801551) 0.00-0.06 LYMPH x10^3 (test code = 731-0) 2.81 10*3/uL 1.32-3.29 MONO x10^3 (test code = 742-7) 0.81 10*3/uL 0.33-0.92 EOS x10^3 (test code = 711-2) 0.25 10*3/uL 0.03-0.39 BASO x10^3 (test code = 704-7) 0.09 10*3/uL 0.01-0.07 H Lab Interpretation (test code = 47474-4) Abnormal [facility] WITH [id number] 07:54:04* Test Item Value Reference Range Interpretation [...] 32.7 g/dL 31.6-35.1 RDW-SD (test code = 76367-3) 42.5 fL 39.0-49.9 RDW-CV (test code = 788-0) 13.0 % 12.0-15.5 PLT (test code = 777-3) 232 See_Comment [Automated Data [employer] ge] The system which generated this result transmitted reference range: 166 - 358 10*3/?L. The reference range was not used to interpret this result as normal/abnormal. MPV (test code = 65755-5) 11.5 fL 9.5-12.9 NRBC/100 WBC (test code = 2407531001) 0.0 See_Comment [Automated [employer] ssage] The system which generated this result transmitted reference range: 0.0 - 10.0 /100 WBCs. The reference range was not used to interpret this result as normal/abnormal. NRBC x10^3 (test code = 7048739803) See_Comment [Automated Data [employer] ge] The system which generated this result transmitted reference range: 10*3/?L. The reference range was not used to interpret this result as normal/abnormal. GRAN MAT (NEUT) % (test code = 770-8) 57.6 % IMM GRAN % (test code = 5078279197) 0.20 % LYMPH % (test code = 736-9) 29.9 % MONO % (test code = 5905-5) 8.6 % EOS % (test code = 713-8) 2.7 % BASO % (test code = 706-2) 1.0 % GRAN MAT x10^3(ANC) (test code = 4465877371) 5.43 10*3/uL 1.88-7.09 IMM GRAN x10^3 (test code = [id number]) 0.00-0.06 LYMPH x10^3 (test code = 731-0) 2.81 10*3/uL 1.32-3.29 MONO x10^3 (test code = 742-7) 0.81 10*3/uL 0.33-0.92 EOS x10^3 (test code = 711-2) 0.25 10*3/uL 0.03-0.39 BASO x10^3 (test code = 704-7) 0.09 10*3/uL 0.01-0.07 H Lab Interpretation (test code = 25459-8) Abnormal [facility] [id number] 16:47:00* Test Item Value Reference Range Interpretation Comme nts POCT PREG (test code = 1605) Negative On board controls acceptable with C Line (test code = 3574) Yes POCT PREG LOT # (test code = 3575) POCT PREG TEST DATE ( test code = 3576) [facility] [id number] 16:47:00* Test Item Value Reference Range Interpretation Comme nts POCT PREG (test code = 1605) Negative On board controls acceptable with C Line (test code = 3574) Yes POCT PREG LOT # (test code = 3575) POCT PREG TEST DATE ( test code = 3576) [facility] [id number] 04:35:00* Test Item Value Reference Range Interpretation Comme nts POCT PREG (test code = 1605) negative On board controls acceptable with C Line (test code = 3574) present POCT PREG LOT # (test code = 3575) [id number] POCT PREG TEST DATE ( test code = 3576) 2023-11-25 Lab Interpretation (test cod e = 15807-3) Normal [facility]* Test Item Value Reference Range Interpretation Comme nts SURGICAL (test code = SR) R UN DATE: 01/17/22 [place] - Lab PAGE 1 RUN TIME: 1221 Specimen Inquiry RUN USER: INTERFACE P ATIENT: KATRIN PEREZ [facility]: [id number] AGE/SX: 16/F ROOM: RE01/06/22REG DR: Facundo Kwon MD : 03 BED: DIS: STATUS: [facility] TLOC: SPEC #: [id number] RECD: 01/09/22 STATUS: [facility] RE #: [id number] KI: 01/06/[address] [facility] [address]: Facundo Kwon MD ENTERED: 01/09/22 SP TYPE: SURGICAL OTHR DR: DOES_NOT KNOW ORDERED: 52646/2, 01929, ANATOMIC SPEC COPIES TO: DOES_NOT KNOW Facundo Kwon MD [address] [place] [address] PROCEDURES: [id number] (01/09/22) [id number] (01/10/22-1182) TISSUES: A. DUODENUM BIOPSY B. STOMACH BIOPSY/POLYP [...] ON NEXT PAGE R UN DATE: 01/17/22 [facility] PAGE 2 RUN TIME: 1221 Specimen Inquiry RUN USER: INTERFACE S TUSHAR #: [id number] PATIENT: KATRIN PEREZ #[id number] (Continued) GROSS DESCRIPTION (Continued) Technical component excluding immunohistochemistry is performed at [facility], [address] [place] [address] Technical component of all immunohistochemistry is performed at [facility], [address] [place] [address], [address], [place] [address] Immunohistochemistry: This test was developed and its [...] 01/17/22 1221 END OF REPORT UR HCG [id number] 12:02:00* Test Item Value Reference Range Interpretation Comme nts UR HCG QUAL (test code = HCGQLU) NEGATIVE This HCGQL test is NOT applicable for MALE patients.Check with nurse about probable order error.If Tumor Marker Test needed, nurse should order test "HCGTU"(Test #[id number])
[2024-08-26 16:45] LABS: Specific Gravity 1.028 (1.005-1.030)
[2024-08-26 16:47] LABS: Specific Gravity 1.028 (1.005-1.030); Sqamous Epithelial <5 /HPF (None Seen); Transitional Epithelial <5 /HPF (None Seen); Urine Bacteria <20 /HPF (<20); Urine Bilirubin NEGATIVE (Negative); Urine Blood Negative (Negative); Urine Clarity Turbid (Clear); Urine Color Yellow (Yellow); Urine Culture Reflex Order NOT NEEDED; Urine Glucose NEGATIVE (Negative); Urine Ketones NEGATIVE (Negative); Urine Microscopic Reflex YN ORDER UMIC; Urine Mucus 3+ /HPF (None Seen); Urine Nitrite NEGATIVE (Negative); Urine Protein TRACE (Negative); Urine RBC <5 /HPF (None Seen); Urine Urobilinogen Normal (Normal); Urine WBC <5 /HPF (<5)
--- NOTE | 2024-08-26 17:27 | EDPHYS ---
Physician Documentation [facility] Name: Lizzie Chase Age: 19 yrs Sex: Female : 2005 Arrival Date: 08/26/2024 Time: 16:00 Bed Treatment Private MD: ED Physician Paul Gonzalez HPI: 08/26 17:24 This 19 yrs old Female presents to ER via Ambulatory with complaints of kb Urinary Problem, Vomiting. 17:24 Patient is a 19-year-old female who presents for urinary frequency and vaginal kb discharge that started 2 weeks ago. States the discharge was cottage cheeselike then turned to yellow. States the symptoms went away and then came back after few days. Denies dysuria, fever, pelvic pain.. Historical: - Allergies: 16:15 No Known Allergies; ko1 - Home Meds: 16:15 None [Active]; ko1 - PMHx: 16:15 pre-diabetic; ko1 - PSHx: 16:15 None; ko1 - Immunization history:: Adult Immunizations unknown. - Infectious Disease History:: Denies. - Social history:: Smoking status: Patient denies any tobacco usage or history of. ROS: 17:24 Constitutional: As per HPI kb Exam: 17:24 Constitutional: This is a well developed, well nourished patient who is awake, alert, kb and in no acute distress. Head/Face: Normocephalic, atraumatic. ENT: Moist Mucous membranes Cardiovascular: Regular rate Respiratory: Respirations even and unlabored. No increased work of breathing. Talking in full sentences Abdomen/GI: Soft, non-tender. No distention Skin: Warm, dry with normal turgor. Normal color. MS/ Extremity: Pulses equal, no cyanosis. Neurovascular intact. Full, normal range of motion. Neuro: Awake and alert, GCS 15, oriented to person, place, time, and situation. Vital Signs: 16:09 BP 118 / 74; Pulse 72; Resp 15; Temp 98; Pulse Ox 98% ; ko1 17:43 BP 121 / 76; Pulse 74; Resp 18; Pulse Ox 99% on R/A; ld1 MDM: 16:07 Medical Screening Exam initiated kb 17:25 Differential diagnosis: UTI, Gonorrhea, chlamydia, trichomonas, candidiasis, bacterial kb vaginosis. Data reviewed: vital signs, nurses notes. Counseling: I had a detailed discussion with the patient and/or guardian regarding the historical points, exam findings, and any diagnostic results supporting the discharge/admit diagnosis, lab results, the need for outpatient follow up, a family practitioner, to return to the emergency department if symptoms worsen or persist or if there are any questions or concerns that arise at home. 08/26 16:11 Order name: Wet Prep; Complete Time: 16:58 kb 08/26 16:11 Order name: Test, Urine; Complete Time: 16:53 kb 08/26 16:11 Order name: Urinalysis w/ reflexes; Complete Time: 16:53 kb 08/26 16:11 Order name: GC (Hi/Chl) Probe VAGINAL (Do not order if pt is under 13, order Culture kb instead) Administered Medications: 17:43 Drug: Fluconazole PO 150 mg PO once Route: PO; ld1 Disposition Summary: 08/26/24 17:27 Discharge Ordered Notes: Location: Home kb Condition: Stable kb Diagnosis - Candidiasis of vulva and vagina kb - Bacterial vaginosis kb Followup: kb - With: Emergency Department - When: As needed - Reason: Worsening of condition Followup: kb - With: Private Physician - When: 2 - 3 days - Reason: Recheck today's complaints, Continuance of care, Re-evaluation by your physician Discharge Instructions: - Discharge Summary Sheet kb - Vaginal Yeast Infection, Adult kb - Bacterial Vaginosis, [id number]-nz-Mdcb kb Forms: - Medication Reconciliation Form kb - Antibiotic Education kb - Prescription Opioid Use kb - Patient Portal Instructions kb - Leadership Thank You Letter kb Prescriptions: - Cleocin 2 % Vaginal Cream - insert 5 grams VAGINAL route At bedtime for 7 days; 45 gram; Refills: 0, kb Product Selection Permitted - Fluconazole 150 mg Oral tablet - take 1 tablet ORAL route one time; 1 tablet; Refills: 0, Product Selection kb Permitted Addendum: 09/02/2024 06:58 Co-signature as Attending Physician, Paul Gonzalze MD I reviewed the patient's care r n provided by the Advanced Practice Provider and agree with the diagnosis and treatment plan. Signatures: Dispatcher [employer] Preethi Dickinson, ANDREEA-C RELOCATION COORDINATOR-Paul Hernández MD MD rn Sims, Lauren RN RN ld1 Tino, Cici, RN RN ko1
--- NOTE | 2024-08-26 17:27 | ER ---
Nurse's Notes [facility] Name: Lizzie Chase Age: 19 yrs Sex: Female : 2005 Arrival Date: 08/26/2024 Time: 16:00 Bed Treatment Private MD: Diagnosis: Candidiasis of vulva and vagina;Bacterial vaginosis Presentation: 08/26 16:06 Chief complaint: Patient states: I think I have a UTI, I have like cottage cheese ko1 discharge but its like yellow. I am nauseated too. It started about 2 weeks ago, it went away and it came back. Coronavirus screen: At this time, the client does not indicate any symptoms associated with coronavirus-19. Ebola Screen: No symptoms or risks identified at this time. 16:06 Method Of Arrival: Ambulatory ko1 16:09 Initial Sepsis Screen: Does the patient meet any 2 criteria? No. Patient's initial ko1 sepsis screen is negative. Does the patient have a suspected source of infection? No. Patient's initial sepsis screen is negative. Risk Assessment: Do you want to hurt yourself or someone else? Patient reports no desire to harm self or others. Onset of symptoms is unknown. 16:09 Acuity: NACHO 4 ko1 Triage Assessment: 16:15 General: Appears in no apparent distress. Behavior is calm, cooperative, appropriate ko1 for age. Pain: Denies pain. GI: Reports nausea. Historical: - Allergies: 16:15 No Known Allergies; ko1 - Home Meds: 16:15 None [Active]; ko1 - PMHx: 16:15 pre-diabetic; ko1 - PSHx: 16:15 None; ko1 - Immunization history:: Adult Immunizations unknown. - Infectious Disease History:: Denies. - Social history:: Smoking status: Patient denies any tobacco usage or history of. Screenin:44 [facility] ED Fall Risk Assessment (Adult) History of falling in the last 3 months, ld1 including since admission No falls in past 3 months (0 pts) Confusion or Disorientation No (0 pts) Intoxicated or Sedated No (0 pts) Impaired Gait No (0 pts) Mobility Assist Device Used No (0 pt) Altered Elimination No (0 pt) Score/Fall Risk Level 0 - 2 = Low Risk Oriented to surroundings, Maintained a safe environment, Educated pt \T\ family on fall prevention, incl call for assistance when getting out of bed, Assessed \T\ reinforced patient's understanding of fall precautions, Provided non-skid footwear, Hourly rounding (assess needs \T\ fall precautionary measures) done, Used ambulatory aids as needed (educated on \T\ assisted with), Used gait belt as appropriate. Abuse screen: Denies threats or abuse. Denies injuries from another. Nutritional screening: No deficits noted. Tuberculosis screening: No symptoms or risk factors identified. Assessment: 17:43 General: Appears in no apparent distress. comfortable, Behavior is calm, cooperative, ld1 appropriate for age. Pain: Denies pain. Neuro: Level of Consciousness is awake, alert, obeys commands, Oriented to person, place, time, situation. Cardiovascular: Capillary refill < 3 seconds Patient's skin is warm and dry. Respiratory: Airway is patent Respiratory effort is even, unlabored. GI: Abdomen is flat, non-distended. : No signs and/or symptoms were reported regarding the genitourinary system. EENT: No signs and/or symptoms were reported regarding the EENT system. Derm: No signs and/or symptoms reported regarding the dermatologic system. Musculoskeletal: No signs and/or symptoms reported regarding the musculoskeletal system. Vital Signs: 16:09 BP 118 / 74; Pulse 72; Resp 15; Temp 98; Pulse Ox 98% ; ko1 17:43 BP 121 / 76; Pulse 74; Resp 18; Pulse Ox 99% on R/A; ld1 ED Course: 16:02 Patient arrived in ED. mr 16:06 Preethi Corbin FNP-C is [facility]. kb 16:06 Paul Gonzalez MD is Attending Physician. kb 16:15 Triage completed. ko1 16:15 Arm band placed on right wrist. Patient placed in waiting room, Patient notified of ko1 wait time. 17:44 Patient has correct armband on for positive identification. Placed in gown. Bed in low ld1 position. Call light in reach. Side rails up X2. site monitor on. Pulse ox on. NIBP on. Door closed. Noise minimized. Warm blanket given. 17:44 No provider procedures requiring assistance completed. Patient did not have IV access ld1 during this emergency room visit. Administered Medications: 17:43 Drug: Fluconazole PO 150 mg PO once Route: PO; ld1 Medication: 17:43 VIS not applicable for this client. ld1 Outcome: 17:27 Discharge ordered by MD. song 17:45 Discharged to home ambulatory, ld1 17:45 Condition: stable 17:45 Discharge instructions given to patient, Instructed on discharge instructions, follow up and referral plans. medication usage, Demonstrated understanding of instructions, follow-up care, medications, Prescriptions given X 2, 17:45 Patient left the ED. ld1 Signatures: Preethi Corbin, ANDREEA-C ANDREEA-Amarilys Vilchis, Reg Reg mr Jessie Kumar, RN RN ld1 Cici Jiménez, RN RN ko1
[2024-08-26] MEDS ORDERED: FLUCONAZOLE 100 MG TAB ONE (17:36)
[2024-08-27 00:42] VITALS: TEMP 98
[2024-08-27 00:44] VITALS: BP 121/76; O2SAT 99
[2024-08-30 22:47] LABS: C.trachomatis RNA,TMA Not Detected (Not Detected); N.gonorrhoeae RNA,TMA Not Detected (Not Detected)
== END 2024-08-26 17:45 | disposition home or self-care (01) ==
LOC: ER 16:00
DX: B37.31 Acute candidiasis of vulva and vagina (principal); N76.0 Acute vaginitis
CPT/HCPCS: 81001; 81025; 87210; 87490; 87590; 99284

== ENCOUNTER 2024-11-15 10:30 | Emergency (ER) | payer OTHER, SELFPAY ==
--- OUTSIDE RECORDS SUMMARY | 2024-11-15 10:36 | XMS REPORT | Continuity of Care Document ---
Author Name Unknown Address [address] [facility] [place] [address] [facility] [place] Address [address] [facility] [place] [address] Care Team Providers Care Business Process Engineer Name Role Phone Bolivar Cisse Primary Care Physician + [phone] LES HUGGINS Attending Clinician UnavailGERARD Ngo Attending Clinician Unavailable GERARD NOBLES Attending Clinician Unavailable Gerard Suazo Attending Clinician [phone] PHAN RICHARDSON Attending Clinician Unavailable Kristian TERRELL Attending Clinician Unavailable Kristian TERRELL Attending Clinician Unavailable Kristian Denney Attending Clinician [phone] ALAN BAEZA Attending Clinician Unavailable CATRACHITA NGUYEN Attending Clinician Unavail able Doctor Unassigned, [place] Attending Clinician U ROBERTO Alegria Attending Clinician Unavailable Roberto Griffith MD Attending Clinician [phone] Sandi Cardozo NP Attending Clinician VIANEY GARCIA Attending Clinician Unavailable FAROOQ DAVIS Attending Clinician Unavailable Ebrahim ORTHOPEDIC RADIOLOGIC TECHNOLOGIST, Farooq Attending Clinician [phone] Unknown, Attending Attending Clinician Unavailab JOYCE Kumar Attending Clinician UnavailJoyce Fuentes CNM Attending Clinician [phone] WENDY JANE Attending Clinician UnavailWENDY Crane Attending Clinician Unavaila ALEXIS Monae S Attending Clinician Unavailable Campos PAC, Alexis S Attending Clinician [phone] ANNABELLE JO Attending Clinician Unavailable BANDAR CASTILLO Attending Clinician Unavailable Bandar Castillo MD Attending Clinician [phone] Facundo Kwon Attending Clinician Unavailable Jacques DORAN, Mayra Tony Attending Clinician + [phone] MAYRA SAAVEDRA Attending Clinician Unavailab RENETTA Lam Attending Clinician Unavailable Renetta Clark S Attending Clinician [phone], [facility] Attending Clinician Unavailable Annabelle Jo PA-C Attending Clinician [phone] Nurse, [facility] Attending Clinician Un available Vianey Garcia MD Attending Clinician [phone] Samanta Petty MD Attending Clinician [phone] Teri GARCIA, Lucrecia M Attending Clinician Unavailable Belinda Hall DO Attending Clinician [phone] Les Huggins MD Attending Clinician [phone] Lab, [facility] F[facility] Pob I Attending Clinician Unavailab Page Gorman Attending Clinician [phone] PAGE RED Attending Clinician Unavailable PANKAJ REESE Attending Clinician Unavailrommel Rae NP, Mariaa Gibbs Attending Clinician [phone] MARIAA RAE Attending Clinician Unavailable LES HUGGINS Admitting Clinician UnavailSANDI Vaughan Admitting Clinician Unavailable KNOW, DOES_NOT Admitting Clinician Unavailable Les Huggins MD Admitting Clinician [phone] BELINDA HALL Admitting Clinician Unavailab le Payers Payer Name Policy Type Policy Number Effective Date Expirati on Date Source [facility] [id number] 2020 00:00:00 LEANDRAMARY Harrell/ YADY LÓPEZ OOO [id number] 2023 00:00:00 [facility] [place] [facility] [id number] 2024 00:00:00 [facility] SHAYLA DURAN COPAY FOCUS 9 [id number] 2023 00:00:00 Problems Condition Name Condition Details [...] adult BMI 29.0-29.9, adult Disease Resolve d 12-29 00:00: 00 2022-12-30 00:00:00 2022-12-30 11:00:33 Tri [...] tear, left, subsequent encounter Disease Resolve d 2019- 9-22 00:00: 00 2022-12-30 00:00:00 2022-12-30 11:00:54 Overview: Formattin g of this note might be different from the original. Added automatic ally from request for surgery [id number] [facility] Allergies, Adverse Reactions, Alerts Allergy Name Allergy Type Status Severity Reaction(s) Onset Date Inactive Date Treating Clinician Comments Source No Known Allergie s DA Active U 5 00:00: 00 [facility] NO KNOWN ALLERGIE S Drug Class Active [facility] Social History Social Habit Start Date Stop Date Quantity Comments Source Gender identity [facility] SDOH Alcohol Comment [place] [facility] Alcoholic beverage intake 2024-05-31 00:00:00 2024-05-31 00:00:00 Lifetime non-drinker (finding) [facility] Alcohol intake 2023-10-26 00:00:00 2023-10-26 00:00:00 Lifetime non-drinker (finding) [facility] Exposure to SARS-CoV-2 (event) 2022-12-26 00:00:00 2023-01-05 08:00:[address] [facility] Tobacco use and exposure 2022-12-27 00:00:00 2022-12-27 00:00:[address]okeless tobacco non-user [facility] History of Social function 2022-12-27 00:00:00 2022-12-27 00:00:00 [facility] History SDOH Alcohol Frequency 2020-04-05 00:00:00 2020-04-05 00:00:[address] [facility] History SDOH Alcohol Std Drinks 2020-04-05 00:00:00 2020-04-05 00:00:[address] [facility] History SDOH Alcohol Binge 2020-04-05 00:00:00 2020-04-05 00:00:[address] [facility] Sex assigned at 2003 00:00:00 2003 00:00:00 [facility] Smoking Status Start Date Stop Date Source Never smoked tobacco [facility] Medications Ordered Medication Name Filled Medication Name Start Date Stop Date Current Medication? Ordering Clinician Indication Dosage Frequency Signature (SIG) Comments Components Source cefdinir 300 mg capsule 2023-08 00:00: 00 06-09 04:59 :00 No [id number] 300mg Take 1 capsule by mouth every [...] 10-25 00:00: 00 11-02 05:59 :00 No [id number] 300mg Take 1 capsule by mouth in the morning and 1 capsule in the evening. Do all this for 7 days. [facility] methylPREDN ISolone 4 mg tablets 09-20 00:00: 00 Yes [id number] Take by mouth SEE-INSTRU CTIONS. follow package directions [facility] amoxicillin -clavulanat e 875-125 mg per tablet 09-20 00:00: 00 Yes [id number] 1{tbl} Take 1 tablet by mouth every 12 (twelve) hours. [facility] iopamidol (ISOVUE 370-500 mL) injection 100 mL 2022-08 03:30: 00 07-17 03:30 :00 No [id number] 100mL 100 mL, Intravenou s, ONCE, 1 dose, On Sun07/16/23 at 2130, Routine [facility] methylPREDN ISolone 4 mg tablets 2022-08 00:00: 00 Yes [id number] Take by mouth SEE-INSTRU CTIONS. follow package directions [facility] clindamycin 300 mg capsule 2022-08 00:00: 00 07-27 05:59 :00 No [id number] 300mg Take 1 capsule by mouth 4 (four) times daily for 10 days. [facility] cefdinir 300 mg capsule 05-17 00:00: 00 05-28 04:59 :00 No [id number] 600mg Take 2 capsules by mouth in the morning for 10 days. [facility] acetaminoph en (TYLENOL) tablet 650 mg 01-05 13:15: 00 01-05 13:14 :00 No 650mg 650 mg, Oral, ONCE, 1 dose, On Sun01/05/23 at 0815, ALLI [facility] amoxicillin 500 mg capsule 01-05 00:00: 00 Yes [id number] 500mg Take 1 capsule by mouth in the morning and 1 capsule at noon and 1 capsule in the evening. [facility] ondansetron 4 mg disintegrat ing tablet 01-05 00:00: 00 Yes [id number] 4mg Take 1 tablet by mouth every 4 (four) hours as needed for Nausea and Vomiting (N/V). [facility] naproxen 500 mg tablet 01-05 00:00: 00 01-16 04:59 :00 No [id number] 500mg Take 1 tablet by mouth in the morning and 1 tablet in the evening. Take with meals. Do all this for 10 days. [facility] norethindro sobiaestrad ioL-iron (MICROGESTI N FE) 1.5 mg-30 mcg (21)/75 mg (7) per tablet 12-27 00:00: 00 Yes [id number] 1{tbl} Take 1 tablet by mouth in the morning. [facility] naproxen (NAPROSYN) 500 mg tablet 09-27 00:00: 00 12-27 00:00 :00 No [id number] 500mg Take 1 tablet by mouth in the morning and 1 tablet in the evening. Take with meals. [facility] ibuprofen (IBU) tablet 800 mg 09-25 04:30: 00 09-25 04:33 :00 No 800mg 800 mg, Oral, ONCE, 1 dose, On 09/24/22 at 2230, ALLI [facility] No known medications 505 16:08: 37 No [facility] pantoprazol e 40 mg EC tablet 4-11 00:00: 00 12-29 00:00 :00 No 40mg Take 40 mg by mouth daily. [facility] metroNIDAZO LE 500 mg tablet - 00:00: 00 12-29 00:00 :00 No [id number] 500mg Take 1 tablet by mouth every 12 (twelve) hours. [facility] ergocalcife rol, vitamin d2, 1,250 mcg (50,000 unit) capsule 1-15 00:00: 00 12-29 00:00 :00 No [id number] 29075A Take 1 capsule by mouth weekly. [facility] ranitidine (ZANTAC) 150 mg tablet 2 00:00: 00 12-29 00:00 :00 No 150mg Take 1 tablet by mouth 2 (two) times daily. Follow up with your MD for further evaluation and treatment. [facility] Immunizations Ordered Immunization Name Filled Immunization Name Date Status Comments Source HPV9 2022-12-27 00:00:00 [facility] 2022-12-27 00:00:00 Completed HPV9 2022-12-27 00:00:[address] [facility] HPV9 2022-12-27 00:00:[address] [facility] HPV9 2022-12-27 00:00:[address] [facility] Meningococcal Polysaccharide (groups A, C, Y and W-135) conjugate vaccine (MCV4P) 2020-03-30 00:00:00 Completed Meningococcal Polysaccharide (groups A, C, Y and W-135) conjugate vaccine (MCV4P) 2020-03-30 00:00:00 Completed Meningococcal Polysaccharide (groups A, C, Y and W-135) conjugate vaccine (MCV4P) 2020-03-30 00:00:[address] [facility] Meningococcal Polysaccharide (groups A, C, Y and W-135) conjugate vaccine (MCV4P) 2020-03-30 00:00:[address] [facility] Meningococcal Polysaccharide (groups A, C, Y and W-135) conjugate vaccine (MCV4P) 2020-03-30 00:00:[address] [facility] HPV9 2016-04-17 00:00:00 Completed Meningococcal Polysaccharide (groups A, C, Y and W-135) conjugate vaccine (MCV4P) 2016-04-17 00:00:00 Completed TDAP 2016-04-17 00:00:00 Completed HPV9 2016-04-17 00:00:00 Completed Meningococcal Polysaccharide (groups A, C, Y and W-135) conjugate vaccine (MCV4P) 2016-04-17 00:00:00 Completed TDAP 2016-04-17 00:00:00 Completed HPV9 2016-04-17 00:00:[address] [facility] Meningococcal Polysaccharide (groups A, C, Y and W-135) conjugate vaccine (MCV4P) 2016-04-17 00:00:[address] [facility] TDAP 2016-04-17 00:00:[address] [facility] HPV9 2016-04-17 00:00:[address] [facility] Meningococcal Polysaccharide (groups A, C, Y and W-135) conjugate vaccine (MCV4P) 2016-04-17 00:00:[address] [facility] TDAP 2016-04-17 00:00:[address] [facility] HPV9 2016-04-17 00:00:[address] [facility] Meningococcal Polysaccharide (groups A, C, Y and W-135) conjugate vaccine (MCV4P) 2016-04-17 00:00:[address] [facility] TDAP 2016-04-17 00:00:[address] [facility] HEPATITIS A 2009-06-30 00:00:00 Completed Varicella (varivax)(chicken pox) 2009-06-30 00:00:00 Completed HEPATITIS A 2009-06-30 00:00:00 Completed Varicella (varivax)(chicken pox) 2009-06-30 00:00:00 Completed HEPATITIS A 2009-06-30 00:00:[address] [facility] Varicella (varivax)(chicken pox) 2009-06-30 00:00:[address] [facility] HEPATITIS A 2009-06-30 00:00:[address] [facility] Varicella (varivax)(chicken pox) 2009-06-30 00:00:[address] [facility] HEPATITIS A 2009-06-30 00:00:[address] [facility] Varicella (varivax)(chicken pox) 2009-06-30 00:00:[address] [facility] DTaP, Unspecified Formulation 2007-06-10 00:00:00 Completed HEPATITIS A 2007-06-10 00:00:00 Completed Hib-HbOC 2007-06-10 00:00:00 Completed MMR 2007-06-10 00:00:00 Completed Pneumococcal 7 Conjugate, PCV7 (Prevnar7) 2007-06-10 00:00:00 Completed IPV 2007-06-10 00:00:00 Completed DTaP, Unspecified Formulation 2007-06-10 00:00:00 Completed HEPATITIS A 2007-06-10 00:00:00 Completed Hib-HbOC 2007-06-10 00:00:00 Completed MMR 2007-06-10 00:00:00 Completed Pneumococcal 7 Conjugate, PCV7 (Prevnar7) 2007-06-10 00:00:00 Completed IPV 2007-06-10 00:00:00 Completed DTaP, Unspecified Formulation 2007-06-10 00:00:[address] [facility] HEPATITIS A 2007-06-10 00:00:[address] [facility] Hib-HbOC 2007-06-10 00:00:[address] [facility] MMR 2007-06-10 00:00:[address] [facility] Pneumococcal 7 Conjugate, PCV7 (Prevnar7) 2007-06-10 00:00:[address] [facility] IPV 2007-06-10 00:00:[address] [facility] DTaP, Unspecified Formulation 2007-06-10 00:00:[address] [facility] HEPATITIS A 2007-06-10 00:00:[address] [facility] Hib-HbOC 2007-06-10 00:00:[address] [facility] MMR 2007-06-10 00:00:[address] [facility] Pneumococcal 7 Conjugate, PCV7 (Prevnar7) 2007-06-10 00:00:[address] [facility] IPV 2007-06-10 00:00:[address] [facility] DTaP, Unspecified Formulation 2007-06-10 00:00:[address] [facility] HEPATITIS A 2007-06-10 00:00:[address] [facility] Hib-HbOC 2007-06-10 00:00:[address] [facility] MMR 2007-06-10 00:00:[address] [facility] Pneumococcal 7 Conjugate, PCV7 (Prevnar7) 2007-06-10 00:00:[address] [facility] IPV 2007-06-10 00:00:[address] [facility] DTaP, Unspecified Formulation 2004-03-30 00:00:[address] [facility] HIB 4 Dose Schedule 2004-03-30 00:00:00 Completed MMR 2004-03-30 00:00:00 Completed IPV 2004-03-30 00:00:00 Completed Varicella (varivax)(chicken pox) 2004-03-30 00:00:00 Completed DTaP, Unspecified Formulation 2004-03-30 00:00:[address] [facility] HIB 4 Dose Schedule 2004-03-30 00:00:00 Completed MMR 2004-03-30 00:00:00 Completed IPV 2004-03-30 00:00:00 Completed Varicella (varivax)(chicken pox) 2004-03-30 00:00:00 Completed DTaP, Unspecified Formulation 2004-03-30 00:00:[address] [facility] HIB 4 Dose Schedule 2004-03-30 00:00:[address] [facility] MMR 2004-03-30 00:00:[address] [facility] IPV 2004-03-30 00:00:[address] [facility] Varicella (varivax)(chicken pox) 2004-03-30 00:00:[address] [facility] DTaP, Unspecified Formulation 2004-03-30 00:00:[address] [facility] HIB 4 Dose Schedule 2004-03-30 00:00:[address] [facility] MMR 2004-03-30 00:00:[address] [facility] IPV 2004-03-30 00:00:[address] [facility] Varicella (varivax)(chicken pox) 2004-03-30 00:00:[address] [facility] DTaP, Unspecified Formulation 2004-03-30 00:00:[address] [facility] HIB 4 Dose Schedule 2004-03-30 00:00:[address] [facility] MMR 2004-03-30 00:00:[address] [facility] IPV 2004-03-30 00:00:[address] [facility] Varicella (varivax)(chicken pox) 2004-03-30 00:00:[address] [facility] DTaP, Unspecified Formulation 2003 00:00:00 Completed Hep B, Adol or Pedi Dosage 2003 00:00:00 Completed HIB 4 Dose Schedule 2003 00:00:00 Completed Pneumococcal 7 Conjugate, PCV7 (Prevnar7) 2003 00:00:00 Completed IPV 2003 00:00:00 Completed DTaP, Unspecified Formulation 2003 00:00:00 Completed Hep B, Adol or Pedi Dosage 2003 00:00:00 Completed HIB 4 Dose Schedule 2003 00:00:00 Completed Pneumococcal 7 Conjugate, PCV7 (Prevnar7) 2003 00:00:00 Completed IPV 2003 00:00:00 Completed DTaP, Unspecified Formulation 2003 00:00:[address] [facility] Hep B, Adol or Pedi Dosage 2003 00:00:[address] [facility] HIB 4 Dose Schedule 2003 00:00:[address] [facility] Pneumococcal 7 Conjugate, PCV7 (Prevnar7) 2003 00:00:[address] [facility] IPV 2003 00:00:[address] [facility] DTaP, Unspecified Formulation 2003 00:00:[address] [facility] Hep B, Adol or Pedi Dosage 2003 00:00:[address] [facility] HIB 4 Dose Schedule 2003 00:00:[address] [facility] Pneumococcal 7 Conjugate, PCV7 (Prevnar7) 2003 00:00:[address] [facility] IPV 2003 00:00:[address] [facility] DTaP, Unspecified Formulation 2003 00:00:[address] [facility] Hep B, Adol or Pedi Dosage 2003 00:00:[address] [facility] HIB 4 Dose Schedule 2003 00:00:[address] [facility] Pneumococcal 7 Conjugate, PCV7 (Prevnar7) 2003 00:00:[address] [facility] IPV 2003 00:00:[address] [facility] DTaP, Unspecified Formulation 2003 00:00:00 Completed Hep B, Adol or Pedi Dosage 2003 00:00:00 Completed HIB 4 Dose Schedule 2003 00:00:00 Completed Pneumococcal 7 Conjugate, PCV7 (Prevnar7) 2003 00:00:00 Completed IPV 2003 00:00:00 Completed DTaP, Unspecified Formulation 2003 00:00:00 Completed Hep B, Adol or Pedi Dosage 2003 00:00:00 Completed HIB 4 Dose Schedule 2003 00:00:00 Completed Pneumococcal 7 Conjugate, PCV7 (Prevnar7) 2003 00:00:00 Completed IPV 2003 00:00:00 Completed DTaP, Unspecified Formulation 2003 00:00:[address] [facility] Hep B, Adol or Pedi Dosage 2003 00:00:[address] [facility] HIB 4 Dose Schedule 2003 00:00:[address] [facility] Pneumococcal 7 Conjugate, PCV7 (Prevnar7) 2003 00:00:[address] [facility] IPV 2003 00:00:[address] [facility] DTaP, Unspecified Formulation 2003 00:00:[address] [facility] Hep B, Adol or Pedi Dosage 2003 00:00:[address] [facility] HIB 4 Dose Schedule 2003 00:00:[address] [facility] Pneumococcal 7 Conjugate, PCV7 (Prevnar7) 2003 00:00:[address] [facility] IPV 2003 00:00:[address] [facility] DTaP, Unspecified Formulation 2003 00:00:[address] [facility] Hep B, Adol or Pedi Dosage 2003 00:00:[address] [facility] HIB 4 Dose Schedule 2003 00:00:[address] [facility] Pneumococcal 7 Conjugate, PCV7 (Prevnar7) 2003 00:00:[address] [facility] IPV 2003 00:00:[address] [facility] Hep B, Adol or Pedi Dosage 2003 00:00:00 Completed Hep B, Adol or Pedi Dosage 2003 00:00:00 Completed Hep B, Adol or Pedi Dosage 2003 00:00:[address] [facility] Hep B, Adol or Pedi Dosage 2003 00:00:[address] [facility] Hep B, Adol or Pedi Dosage 2003 00:00:[address] [facility] DTaP, Unspecified Formulation Unknown Completed [facility] HEPATITIS A Unknown Completed [facility] Hep B, Adol or Pedi Dosage Unknown Completed [facility] Hib-HbOC Unknown Completed [facility] HIB 4 Dose Schedule Unknown Completed [facility] HPV9 [address] Com[address] [facility] Meningococcal Polysaccharide (groups A, C, Y and W-135) conjugate vaccine (MCV4P) Unknown Completed [facility] MMR Unknown Completed [facility] Pneumococcal 7 Conjugate, PCV7 (Prevnar7) Unknown Completed [facility] IPV Unknown Completed [facility] Varicella (varivax)(chicken pox) Unknown Completed [facility] TDAP Unknown Completed [facility] DTaP, Unspecified Formulation Unknown Completed [facility] HEPATITIS A Unknown Completed [facility] Hep B, Adol or Pedi Dosage Unknown Completed [facility] Hib-HbOC Unknown Completed [facility] HIB 4 Dose Schedule Unknown Completed [facility] HPV9 [address] Com[address] [facility] Meningococcal Polysaccharide (groups A, C, Y and W-135) conjugate vaccine (MCV4P) Unknown Completed [facility] MMR Unknown Completed [facility] Pneumococcal 7 Conjugate, PCV7 (Prevnar7) Unknown Completed [facility] IPV Unknown Completed [facility] Varicella (varivax)(chicken pox) Unknown Completed [facility] TDAP Unknown Completed [facility] DTaP, Unspecified Formulation Unknown Completed [facility] HEPATITIS A Unknown Completed [facility] Hep B, Adol or Pedi Dosage Unknown Completed [facility] Hib-HbOC Unknown Completed [facility] HIB 4 Dose Schedule Unknown Completed [facility] HPV9 [address] Com[address] [facility] Meningococcal Polysaccharide (groups A, C, Y and W-135) conjugate vaccine (MCV4P) Unknown Completed [facility] MMR Unknown Completed [facility] Pneumococcal 7 Conjugate, PCV7 (Prevnar7) Unknown Completed [facility] IPV Unknown Completed [facility] Varicella (varivax)(chicken pox) Unknown Completed [facility] TDAP Unknown Completed [facility] DTaP, Unspecified Formulation Unknown Completed [facility] HEPATITIS A Unknown Completed [facility] Hep B, Adol or Pedi Dosage Unknown Completed [facility] Hib-HbOC Unknown Completed [facility] HIB 4 Dose Schedule Unknown Completed [facility] HPV9 [address] Com[address] [facility] Meningococcal Polysaccharide (groups A, C, Y and W-135) conjugate vaccine (MCV4P) Unknown Completed [facility] MMR Unknown Completed [facility] Pneumococcal 7 Conjugate, PCV7 (Prevnar7) Unknown Completed [facility] IPV Unknown Completed [facility] Varicella (varivax)(chicken pox) Unknown Completed [facility] TDAP Unknown Completed [facility] DTaP, Unspecified Formulation Unknown Completed [facility] HEPATITIS A Unknown Completed [facility] Hep B, Adol or Pedi Dosage Unknown Completed [facility] Hib-HbOC Unknown Completed [facility] HIB 4 Dose Schedule Unknown Completed [facility] HPV9 Unknown Completed [facility] Meningococcal Polysaccharide (groups A, C, Y and W-135) conjugate vaccine (MCV4P) Unknown Completed [facility] MMR Unknown Completed [facility] Pneumococcal 7 Conjugate, PCV7 (Prevnar7) Unknown Completed [facility] IPV Unknown Completed [facility] Varicella (varivax)(chicken pox) Unknown Completed [facility] TDAP Unknown Completed [facility] Vital Signs Vital Name Observation Time Observation Value Comments S ource Systolic blood pressure 2024-09-30 20:40:00 125 mm[Hg] [facility] Diastolic blood pressure 2024-09-30 20:40:00 85 mm[Hg] [facility] Heart rate 2024-09-30 20:40:00 78 /min [facility] Body temperature 2024-09-30 20:40:[address] [facility] Respiratory rate 2024-09-30 20:40:00 16 /min [facility] Oxygen saturation in Arterial blood by Pulse oximetry 2024-09-30 20:40:00 97 /min [facility] Body height 2024-09-30 20:37:00 152.4 cm [facility] Body weight 2024-09-30 20:37:00 78.245 kg [facility] BMI 2024-09-30 20:37:00 33.69 kg/m2 [facility] Systolic blood pressure 2024-05-29 21:17:00 135 mm[Hg] [facility] Diastolic blood pressure 2024-05-29 21:17:00 91 mm[Hg] [facility] Heart rate 2024-05-29 21:17:00 102 /min [facility] Body temperature 2024-05-29 21:17:[address] [facility] Respiratory rate 2024-05-29 21:17:00 16 /min [facility] Body height 2024-05-29 21:17:00 152.4 cm [facility] Body weight 2024-05-29 21:17:00 79.833 kg [facility] BMI 2024-05-29 21:17:00 34.37 kg/m2 [facility] Oxygen saturation in Arterial blood by Pulse oximetry 2024-05-29 21:17:00 100 /min [facility] Systolic blood pressure 2023-10-27 03:54:00 135 mm[Hg] [facility] Diastolic blood pressure 2023-10-27 03:54:00 103 mm[Hg] [facility] Heart rate 2023-10-27 03:54:00 95 /min [facility] Body temperature 2023-10-27 03:54:[address] [facility] Respiratory rate 2023-10-27 03:54:00 18 /min [facility] Body height 2023-10-27 03:54:00 152.4 cm [facility] Body weight 2023-10-27 03:54:00 70.761 kg [facility] BMI 2023-10-27 03:54:00 30.47 kg/m2 [facility] Oxygen saturation in Arterial blood by Pulse oximetry 2023-10-27 03:54:00 100 /min [facility] Systolic blood pressure 2023-09-21 04:15:00 120 mm[Hg] [facility] Diastolic blood pressure 2023-09-21 04:15:00 68 mm[Hg] [facility] Heart rate 2023-09-21 04:15:00 93 /min [facility] Body temperature 2023-09-21 04:15:[address] [facility] Respiratory rate 2023-09-21 04:15:00 16 /min [facility] Body height 2023-09-21 04:15:00 152.4 cm [facility] Body weight 2023-09-21 04:15:00 70.761 kg [facility] BMI 2023-09-21 04:15:00 30.47 kg/m2 [facility] Oxygen saturation in Arterial blood by Pulse oximetry 2023-09-21 04:15:00 100 /min [facility] Systolic blood pressure 2023-07-17 03:00:00 122 mm[Hg] [facility] Diastolic blood pressure 2023-07-17 03:00:00 86 mm[Hg] [facility] Heart rate 2023-07-17 03:00:00 73 /min [facility] Respiratory rate 2023-07-17 03:00:00 16 /min [facility] Oxygen saturation in Arterial blood by Pulse oximetry 2023-07-17 03:00:00 100 /min [facility] Body weight 2023-07-17 00:43:00 69.854 kg [facility] BMI 2023-07-17 00:43:00 30.08 kg/m2 [facility] Body temperature 2023-07-17 00:43:[address] [facility] Body height 2023-07-17 00:43:00 152.4 cm [facility] Systolic blood pressure 2023-05-17 19:58:00 112 mm[Hg] [facility] Diastolic blood pressure 2023-05-17 19:58:00 76 mm[Hg] [facility] Heart rate 2023-05-17 19:58:00 71 /min [facility] Body temperature 2023-05-17 19:58:[address] [facility] Respiratory rate 2023-05-17 19:58:00 16 /min [facility] Body height 2023-05-17 19:58:00 152.4 cm [facility] Body weight 2023-05-17 19:58:00 66.225 kg [facility] BMI 2023-05-17 19:58:00 28.51 kg/m2 [facility] Oxygen saturation in Arterial blood by Pulse oximetry 2023-05-17 19:58:00 98 /min [facility] Body temperature 2023-01-05 14:10:[address] [facility] Systolic blood pressure 2023-01-05 14:00:00 119 mm[Hg] [facility] Diastolic blood pressure 2023-01-05 14:00:00 79 mm[Hg] [facility] Heart rate 2023-01-05 14:00:00 89 /min [facility] Respiratory rate 2023-01-05 14:00:00 15 /min [facility] Oxygen saturation in Arterial blood by Pulse oximetry 2023-01-05 14:00:00 96 /min [facility] Body height 2023-01-05 13:02:00 152.4 cm [facility] Body weight 2023-01-05 13:02:00 72.576 kg [facility] BMI 2023-01-05 13:02:00 31.25 kg/m2 [facility] Systolic blood pressure 2022-12-27 16:46:00 105 mm[Hg] [facility] Diastolic blood pressure 2022-12-27 16:46:00 70 mm[Hg] [facility] Heart rate 2022-12-27 16:46:00 71 /min [facility] Body temperature 2022-12-27 16:46:[address] [facility] Respiratory rate 2022-12-27 16:46:00 18 /min [facility] Body height 2022-12-27 16:46:00 152.4 cm [facility] Body weight 2022-12-27 16:46:00 73.539 kg [facility] BMI 2022-12-27 16:46:00 31.66 kg/m2 [facility] Systolic blood pressure 2022-09-28 02:27:00 133 mm[Hg] [facility] Diastolic blood pressure 2022-09-28 02:27:00 91 mm[Hg] [facility] Heart rate 2022-09-28 02:27:00 94 /min [facility] Body temperature 2022-09-28 02:27:[address] [facility] Respiratory rate 2022-09-28 02:27:00 16 /min [facility] Body height 2022-09-28 02:27:00 152.4 cm [facility] Body weight 2022-09-28 02:27:00 68.13 kg [facility] BMI 2022-09-28 02:27:00 29.33 kg/m2 [facility] Oxygen saturation in Arterial blood by Pulse oximetry 2022-09-28 02:27:00 100 /min [facility] Systolic blood pressure 2022-09-25 03:45:00 124 mm[Hg] [facility] Diastolic blood pressure 2022-09-25 03:45:00 79 mm[Hg] [facility] Heart rate 2022-09-25 03:45:00 81 /min [facility] Body temperature 2022-09-25 03:45:[address] [facility] Respiratory rate 2022-09-25 03:45:00 15 /min [facility] Body height 2022-09-25 03:45:00 152.4 cm [facility] Body weight 2022-09-25 03:45:00 68.04 kg [facility] BMI 2022-09-25 03:45:00 29.29 kg/m2 [facility] Oxygen saturation in Arterial blood by Pulse oximetry 2022-09-25 03:45:00 100 /min [facility] Systolic blood pressure 2021-12-29 20:04:00 134 mm[Hg] [facility] Diastolic blood pressure 2021-12-29 20:04:00 86 mm[Hg] [facility] Heart rate 2021-12-29 20:04:00 76 /min [facility] Body temperature 2021-12-29 20:04:[address] [facility] Respiratory rate 2021-12-29 20:04:00 18 /min [facility] Body height 2021-12-29 20:04:00 152.4 [facility] 2021-12-29 20:04:00 68.856 kg [facility] BMI 2021-12-29 20:04:00 29.65 kg/m2 [facility] Body mass index (BMI) [Percentile] Per age and sex 2021-12-29 20:04:00 93.49 % [facility] Procedures Procedure Date / Time Performed Performing Clinician Source POCT TEST 2024-09-30 21:32:[address] [facility] URINALYSIS 2024-09-30 21:30:00 Gerard Nobles [facility] INFLUENZA A/B RSV COVID NAAT 2024-09-30 21:30:[address] [facility] URINALYSIS 2024-05-29 21:20:00 Kristian Terrell [facility] POCT TEST 2024-05-29 21:20:[address] [facility] POCT TEST 2023-10-27 04:27:[address] [facility] TEST, SERUM 2023-10-27 04:26:[address] [facility] COMP. METABOLIC PANEL (46944) 2023-10-27 04:26:[address] [facility] CBC WITH DIFF 2023-10-27 04:26:00 Gerard Nobles [facility] URINALYSIS 2023-10-27 04:26:00 Gerard Nobles [facility] CONSENT/REFUSAL FOR DIAGNOSIS AND TREATMENT 2023-10-27 03:50:18 Doctor Unassigned, [place] [facility] ASSIGNMENT OF BENEFITS 2023-09-28 16:03:04 Docto r Unassigned, [place] [facility] NOTICE OF PRIVACY PRACTICES 2023-09-21 04:06:10 Doctor Unassigned, [place] [facility] CONSENT/REFUSAL FOR DIAGNOSIS AND TREATMENT 2023-09-21 04:05:29 Doctor Unassigned, [place] [facility] RAPID STREP SCREEN FOR GROUP A 2023-07-17 03:07:[address] [facility] POCT TEST 2023-07-17 01:53:[address] [facility] COMP. METABOLIC PANEL (70510) 2023-07-17 01:51:[address] [facility] CBC WITH DIFF 2023-07-17 01:51:00 Sandi Cardozo [facility] URINALYSIS 2023-07-17 01:51[facility] 2023-07-17 01:51:[address] [facility] CONSENT/REFUSAL FOR DIAGNOSIS AND TREATMENT 2023-07-17 00:37:35 Doctor Unassigned, [place] [facility] POCT TEST 2023-05-17 20:06:[address] [facility] POCT URINALYSIS 2023-05-17 20:00:00 Farooq Davis [facility] RAPID STREP SCREEN FOR GROUP A 2023-01-05 13:18:[address] [facility] RAPID INFLUENZA A/B 2023-01-05 13:09:[address] [facility] COVID-19 (ID NOW RAPID TESTING) 2023-01-05 13:09:[address] [facility] THYROID STIMULATING HORMONE 2022-12-27 17:10:[address] [facility] CBC WITH DIFF 2022-12-27 17:10:[address] [facility] GLYCOSYLATED HEMOGLOBIN (A1C) 2022-12-27 17:10:[address] [facility] RUBELLA SCREEN IGG 2022-12-27 17:10:[address] [facility] HCV ANTIBODY 2022-12-27 17:10[facility]00 [facility] & CHLAMYDIA AMPLIFIED ASSAY 2022-12-27 17:10:[address] [facility] HIV 1/2 AG-AB WITH REFLEX 2022-12-27 17:10:[address] [facility] SYPHILIS IGG/IGM 2022-12-27 17:10:[address] [facility] GARDASIL 9 (HPV 9V) VACCINE 2022-12-27 16:53:[address] [facility] POCT TEST 2022-12-27 16:47:[address] [facility] ASSIGNMENT OF BENEFITS 2022-12-27 15:53:31 Docto r Unassigned, [place] [facility] CONSENT/REFUSAL FOR DIAGNOSIS AND TREATMENT 2022-09-28 02:20:10 Doctor Unassigned, [place] [facility] POCT TEST 2022-09-25 04:35:[address] [facility] NOTICE OF PRIVACY PRACTICES 2022-09-25 03:45:44 Doctor Unassigned, [place] [facility] CONSENT/REFUSAL FOR DIAGNOSIS AND TREATMENT 2022-09-25 03:44:56 Doctor Unassigned, [place] [facility] Encounters Start Date/Time End Date/Time Encounter Type Admission Type Attending [facility] Facility Care Department Encounter ID Source 2021-06-26 08:58:39 Emergency [facility] [id number] [facility] 2021-06-24 18:43:46 Outpatient LES HUGGINS [facility] [id number] [facility] 2024-09-30 14:42:00 2024-09-30 18:18:00 Emergency X GERARD NOBLES SHINTA [facility] ERT [id number] [facility] 2024-09-30 14:42:00 2024-09-30 18:18:00 Emergency Gerard Nobles [facility] AT [facility] 1.2.840.114 350.1.13.10 4.2.7.2.686 [id number] [facility] 2024-07-28 09:45:00 2024-07-28 09:45:00 Outpatient PHAN GARAY [facility] [id number] [facility] 2024-07-28 09:07:05 2024-07-28 09:07:05 Outpatient [facility] [id number] Marquis Hart 2024-05-29 16:19:00 2024-05-29 17:53:00 Emergency X Kristian TERRELL K [facility] ERT [id number] [facility] 2024-05-29 16:19:00 2024-05-29 17:53:00 Emergency Kristina Terrell [facility] 1.2840.114 350.1.13.10 4.2.7.2.686 [id number] [facility] 2023-11-29 15:30:00 2023-11-29 15:30:00 Outpatient ALAN BAEZA [id number] Yady López 2023-10-26 21:57:00 2023-10-26 23:58:00 Emergency X GERARD NOBLES SHINTA [facility] ERT [id number] [facility] 2023-10-26 21:57:00 2023-10-26 23:58:00 Emergency Gerard Nobles [facility] 1.840.114 350.1.13.10 4.2.7.2.686 [id number] [facility] 2023-10-16 15:53:57 2023-10-16 15:53:57 Outpatient [facility] [id number] Marquis Hart 2023-09-28 10:15:00 2023-09-28 10:15:00 Outpatient CATRACHITA PRATHER [facility] [id number] [facility] 2023-09-28 00:00:00 2023-09-28 00:00:00 Orders Only Doctor Unassigned, [place] [facility] 1.2840.114 350.1.13.10 4.2.7.2.686 [id number] [facility] 2023-09-20 22:18:00 2023-09-20 23:14:00 Emergency X ROBERTO GRIFFITH [facility] ERT [id number] [facility] 2023-09-20 22:18:00 2023-09-20 23:14:00 Emergency William Griffithnell [facility] ..840.114 350.1.13.10 4.2.7.2.686 [id number] [facility] 2023-07-16 18:45:00 2023-07-16 22:54:00 Emergency X WILLIAM GRIFFITHNELL [facility] ERT [id number] [facility] 2023-07-16 18:45:00 2023-07-16 22:54:00 [facility]840.114 350.1.13.10 4.2.7.2.686 [id number] [facility] 2023-07-03 14:00:00 2023-07-03 14:00:00 Outpatient R VIANEY GARCIA [facility] [id number] [facility] 2023-05-17 15:00:00 2023-05-17 15:24:56 Outpatient R FAROOQ DAVIS [facility] [id number] [facility] 2023-05-17 15:00:00 2023-05-17 15:20:00 Urgent Care Farooq Davis Unknown, Attending [facility] ..840.114 350.1.13.10 4.2.7.2.686 [id number] [facility] 2023-03-27 13:30:00 2023-03-27 13:30:00 Outpatient R JOYCE LOPEZ [facility] [id number] [facility] 2023-03-13 00:00:00 2023-03-13 00:00:00 Telephone Joyce Lopez [facility] IT SALES REPRESENTATIVE [facility] ..840.114 350.1.13.10 4.2.7.2.686 [id number] [facility] 2023-01-05 08:03:00 2023-01-05 09:46:00 Emergency X ROBERTO GRIFFITH [facility] ERT [id number] [facility] 2023-01-05 08:03:00 2023-01-05 09:46:00 Emergency Roberto Griffith [facility] 1.2840.114 350.1.13.10 4.2.7.2.686 [id number] [facility] 2022-12-27 11:00:00 2022-12-27 12:13:57 Outpatient R JOYCE LOPEZ [facility] [id number] [facility] 2022-12-27 11:00:00 2022-12-27 12:13:57 Office Visit Joyce Lopez [facility] IT SALES REPRESENTATIVE [facility] 1.20.114 350.1.13.10 4.2.7.2.686 [id number] [facility] 2022-12-27 00:00:00 2022-12-27 00:00:00 Orders Only Doctor Unassigned, [place] [facility] 1.2840.114 350.1.13.10 4.2.7.2.686 [id number] [facility] 2022-09-27 20:33:00 2022-09-27 21:45:00 Emergency X ALEXIS CAMPOS [facility] ERT [id number] [facility] 2022-09-27 20:33:00 2022-09-27 21:45:00 Emergency Alexis Campos [facility] 1.2840.114 350.1.13.10 4.2.7.2.686 [id number] [facility] 2022-09-27 10:15:00 2022-09-27 10:15:00 Outpatient R ANNABELLE JO [facility] [id number] [facility] 2022-09-24 21:55:00 2022-09-24 23:00:00 Emergency X BANDAR CASTILOL [facility] ERT [id number] [facility] 2022-09-24 21:55:00 2022-09-24 23:00:00 Emergency Bandar Castillo S [facility] 1..114 350.1.13.10 4.2.7.2.686 [id number] [facility] 2022-01-06 09:56:00 2022-01-06 09:56:00 Outpatient Facundo Almanzar [facility] [id number] [facility] 2021-12-30 00:00:00 2021-12-30 00:00:00 Telephone Mayra Saavedra [facility] IT SALES REPRESENTATIVE [facility] MATERNAL & CHILD [facility]ALTH [facility] 1..114 350.1.13.10 4.2.7.2.686 [id number] [facility] 2021-12-29 15:15:00 2021-12-29 15:46:42 Outpatient R MAYRA SAAVEDRA [facility] [id number] [facility] 2021-12-29 15:15:00 2021-12-29 15:46:42 Office Visit Mayra Saavedra [facility] IT SALES REPRESENTATIVE [facility] 1..114 350.1.13.10 4.2.7.2.686 [id number] [facility] 2021-12-29 00:00:00 2021-12-29 00:00:00 Orders Only Doctor Unassigned, [place] [facility] 1..114 350.1.13.10 4.2.7.2.686 [id number] [facility] 2021-12-22 09:45:00 2021-12-22 09:45:00 Outpatient Cecily COONRENETTA [facility] [id number] [facility] 2021-12-22 09:45:00 2021-12-22 09:45:00 Outpatient RENETTA JULIEN [facility] [id number] [facility] 2021-12-14 15:00:00 2021-12-14 15:00:00 Outpatient Cecily EUGENEWOODROWVIANEY [facility] [id number] [facility] 2021-12-08 08:53:50 2021-12-08 23:59:00 Outpatient Cecily COON RENETTA [facility] [id number] [facility] 2021-12-08 08:45:00 2021-12-08 10:02:07 Outpatient Cecily COON RENETTA [facility] [id number] [facility] 2021-12-08 08:45:00 2021-12-08 10:02:07 Outpatient Cecily COON RENETTA [facility] [id number] [facility] 2021-12-08 08:45:00 2021-12-08 09:00:00 [facility] 1..840.114 350.1.13.10 4.2.7.2.686 [id number] [facility] 2021-12-01 14:15:00 2021-12-01 14:15:00 Outpatient RENETTA JULIEN [facility] [id number] [facility] 2021-12-01 14:15:00 2021-12-01 14:15:00 Outpatient RENETTA JULIEN [facility] [id number] [facility] 2021-11-29 09:15:00 2021-11-29 09:30:00 Reporting Specialist Visit 2, [facility] Annabelle Jo [facility] 1.2.840.114 350.1.13.10 4.2.7.2.686 [id number] [facility] 2021-11-29 09:15:00 2021-11-29 09:15:00 Outpatient Cecily JO ANNABELLE [facility] [id number] [facility] 2021-11-29 09:15:00 2021-11-29 09:15:00 Outpatient Cecily JOMARGACY [facility] [id number] [facility] 2021-11-29 08:30:00 2021-11-29 08:30:00 Office Visit TylorMargacy [facility] 1..840.114 350.1.13.10 4.2.7.2.686 [id number] [facility] 2021-11-24 00:00:00 2021-11-24 00:00:00 Orders Only Doctor Unassigned, [place] [facility] 1..840.114 350.1.13.10 4.2.7.2.686 [id number] [facility] 2021-11-17 15:00:00 2021-11-17 15:00:00 [facility] [id number] [facility] 2021-11-09 09:00:00 2021-11-09 09:00:00 Outpatient Cecily JO [facility] [id number] [facility] 2021-09-21 15:30:00 2021-09-21 15:41:13 Nurse Visit Nurse, [facility] Vianey Garcia [facility] 1..840.114 350.1.13.10 4.2.7.2.686 [id number] [facility] 2021-09-21 15:30:00 2021-09-21 15:30:00 Outpatient IVANEY RUIZ [facility] [id number] [facility] 2021-09-13 15:30:00 2021-09-13 15:30:00 Outpatient R VIANEY GARCIA [facility] [id number] [facility] 2021-08-03 15:30:00 2021-08-03 15:30:00 Outpatient R [facility] [id number] [facility] 2021-05-11 15:44:35 2021-05-11 16:44:44 Nurse Visit Nurse, [facility] 1.2.840.114 350.1.13.10 4.2.7.2.686 [id number] [facility] 2021-05-11 08:00:00 2021-05-11 08:00:00 Outpatient R [facility] [id number] [facility] 2021-05-11 00:00:00 2021-05-11 00:00:00 Orders Only Doctor Unassigned, [place] [facility] 1..840.114 350.1.13.10 4.2.7.2.686 [id number] [facility] 2021-05-10 08:00:00 2021-05-10 08:00:00 Outpatient R [facility] [id number] [facility] 2021-05-03 15:00:00 2021-05-03 15:00:00 Outpatient R [facility] [id number] [facility] 2021-04-30 00:00:00 2021-04-30 00:00:00 Nurse Triage Lucrecia Williamson [facility] 1..840.114 350.1.13.10 4.2.7.2.686 [id number] [facility] 2021-03-18 15:30:00 2021-03-18 15:30:00 Outpatient R [facility] [id number] [facility] 2021-03-16 14:30:00 2021-03-16 14:30:00 Outpatient R [facility] [id number] [facility] 2021-03-16 00:00:00 2021-03-16 00:00:00 Telephone AdVianey teague [facility] 1.2.840.114 350.1.13.10 4.2.7.2.686 [id number] [facility] 2021-02-25 10:15:00 2021-02-25 10:15:00 Outpatient Cecily COON RENETTA [facility] [id number] [facility] 2021-02-17 15:00:00 2021-02-17 15:00:00 Outpatient Cecily COON RENETTA [facility] [id number] [facility] 2021-02-11 10:00:00 2021-02-11 10:00:00 Outpatient Cecily COON [facility] [id number] [facility] 2020-12-15 14:23:49 2020-12-15 14:38:49 Reporting Specialist Visit 2, [facility] Lab AdVianey teague [facility] 1.2.840.114 350.1.13.10 4.2.7.2.686 [id number] [facility] 2020-12-15 13:51:57 2020-12-15 14:18:57 Nurse Visit Nurse, [facility] AdVianey [facility] 1.2.840.114 350.1.13.10 4.2.7.2.686 [id number] [facility] 2020-12-15 14:00:00 2020-12-15 14:00:00 Outpatient R [facility]ASPREET [facility] [id number] [facility] 2020-12-06 13:30:00 2020-12-06 13:30:00 Outpatient R JASPREET [facility] [id number] [facility] 2020-11-20 17:26:00 2020-11-20 17:37:00 Emergency Belinda Hall [facility] 1.2840.114 350.1.13.10 4.2.7.2.686 [id number] [facility] 2020-11-20 00:00:00 2020-11-20 00:00:00 Orders Only Doctor Unassigned, [place] [facility] 1.2.840.114 350.1.13.10 4.2.7.2.686 [id number] [facility] 2020-11-16 00:00:00 2020-11-16 00:00:00 Case Management AdVianey teague [facility] 1.2.840.114 350.1.13.10 4.2.7.2.686 [id number] [facility] 2020-11-09 13:35:56 2020-11-09 15:09:56 Office Visit AdwoodrowVianey [facility] 1.2.840.114 350.1.13.10 4.2.7.2.686 [id number] [facility] 2020-11-09 13:30:00 2020-11-09 13:30:00 Outpatient R VIANEY GARCIA [facility] [id number] [facility] 2020-11-08 15:45:00 2020-11-08 15:45:00 Outpatient ANNABELLE WISE [facility] [id number] [facility] 2020-11-05 15:00:00 2020-11-05 15:00:00 Outpatient Cecily GARCIA VIANEY [facility] [id number] [facility] 2020-11-04 14:30:00 2020-11-04 14:30:00 Outpatient R JASPREET VIANEY [facility] [id number] [facility] 2020-11-02 00:00:00 2020-11-02 00:00:00 [facility] 1.2.840.114 350.1.13.10 4.2.7.2.686 [id number] [facility] 2020-09-23 00:00:00 2020-09-23 00:00:00 Orders Only Doctor Unassigned, [place] [facility] 1.2.840.114 350.1.13.10 4.2.7.2.686 [id number] [id number] [facility] 2020-09-15 00:00:00 2020-09-15 00:00:00 Case Management Adum, Vianey NAVARRETE [facility] 1.2.840.114 350.1.13.10 4.2.7.2.686 [id number] [facility] 2020-09-10 00:00:00 2020-09-10 00:00:00 Case Management Adum, Vianey Hernandez [facility] 1.2.840.114 350.1.13.10 4.2.7.2.686 [id number] [facility] 2020-09-09 10:14:30 2020-09-09 10:29:30 Reporting Specialist Visit 2, Adc Lab Adum, Vianey Hernandez [facility] 1.2.840.114 350.1.13.10 4.2.7.2.686 [id number] [facility] 2020-09-09 08:31:02 2020-09-09 09:58:53 [facility] 1.2.840.114 350.1.13.10 4.2.7.2.686 [id number] [facility] 2020-09-09 09:00:00 2020-09-09 09:00:00 Outpatient R VIANEY GARICA [facility] [id number] [facility] 2020-09-09 00:00:00 2020-09-09 00:00:00 Orders Only Doctor Unassigned, [place] [facility] 1.20.114 350.1.13.10 4.2.7.2.686 [id number] [facility] 2020-06-15 00:00:00 2020-06-15 00:00:00 Orders Only Doctor Unassigned, [place] [facility] 1.2840.114 350.1.13.10 4.2.7.2.686 [id number] [id number] [facility] 2020-06-07 15:12:17 2020-06-07 15:27:17 Office Visit Renetta Coon [facility] 1..114 350.1.13.10 4.2.7.2.686 [id number] [facility] 2020-06-07 15:00:00 2020-06-07 15:00:00 Outpatient R RENETTA COON [facility] [id number] [facility] 2020-05-24 05:58:00 2020-05-24 09:24:00 Hospital Encounter Aguilar Les Hernandez [facility] 1.114 350.1.13.10 4.2.7.2.686 [id number] [facility] 2020-05-22 13:24:32 2020-05-22 13:44:32 Laboratory Only Lab, Adc Fam Pob I Adam [facility] Professio nal Office Building One 1.114 350.1.13.10 4.2.7.2.686 [id number] [facility] 2020-05-22 13:20:00 2020-05-22 13:20:00 Outpatient Cecily RED [facility] [id number] [facility] 2020-05-21 11:00:00 2020-05-21 11:00:00 Outpatient R PANKAJ REESE [facility] [id number] [facility] 2020-05-17 00:00:00 2020-05-17 00:00:00 Prep For Surgery Les Huggins [facility] yamilex [place] 1.2.840.114 350.1.13.10 4.2.7.2.686 [id number] [facility] 2020-05-13 11:14:45 2020-05-13 11:39:37 Office Visit Renetta Coon [facility] Special[facility] yamilex [place] 1.2840.114 350.1.13.10 4.2.7.2.686 [id number] [facility] 2020-05-13 11:00:00 2020-05-13 11:00:00 Outpatient R LES HUGGINS [facility] [id number] [facility] 2020-05-13 00:00:00 2020-05-13 00:00:00 Letter (Out) Renetta Coon [facility] Surgical Special yamilex [place] 1.2840.114 350.1.13.10 4.2.7.2.686 [id number] [facility] 2020-05-13 00:00:00 2020-05-13 00:00:00 Letter (Out) Renetta Coon [facility] Special[facility] yamilex Cameron 1.2.840.114 350.1.13.10 4.2.7.2.686 [id number] [facility] 2020-05-05 15:15:00 2020-05-05 23:59:00 Hospital Encounter Les Huggins [facility] 1.2.840.114 350.1.13.10 4.2.7.2.686 [id number] [facility] 2020-05-05 00:00:00 2020-05-05 00:00:00 Outpatient R HUGGINS LES [facility] [id number] [facility] 2020-04-15 00:00:00 2020-04-15 00:00:00 Orders Only Doctor Unassigned, [place] [facility] 1.2.840.114 350.1.13.10 4.2.7.2.686 [id number] [facility] 2020-04-08 00:00:00 2020-04-08 00:00:00 Telephone Les Huggins David [facility] Surgical Specialti [facility] 1.2.840.114 350.1.13.10 4.2.7.2.686 [id number] [facility] 2020-04-05 14:45:57 2020-04-05 15:00:57 Office Visit [facility] Coon [facility] 1.2.840.114 350.1.13.10 4.2.7.2.686 [id number] [facility] 2020-04-05 15:00:00 2020-04-05 15:00:00 Outpatient RENETTA JULIEN [facility] [id number] [facility] 2020-04-01 14:00:00 2020-04-01 14:00:00 Outpatient RENETTA JULIEN [facility] [id number] [facility] 2020 11:37:49 2020 13:13:00 Emergency Mariaa Rae [facility] 1.2.840.114 350.1.13.10 4.2.7.2.686 [id number] [facility] 2020 11:37:49 2020 13:13:00 Emergency X MARIAA RAE [facility] ERT [id number] [facility] Results Test Description Test Time Test Comments Results Result Co mments Source [facility] [id number] 21:20:00* Test Item Value Reference Range Interpretation Comme nts POCT PREG (test code = 1605) Negative On board controls acceptable with C Line (test code = 3574) Yes POCT PREG LOT # (test code = 3575) [id number] POCT PREG TEST DATE ( test code = 3576) 08/04/2025 Lab Interpretation (test cod e = 79661-7) Normal [facility], [id number] 04:54:53* Test Item Value Reference Range Interpretation Comme nts PREG SERUM (test code = 8175521879) Negative ZORAIDA (test code = ZORAIDA) Less than 10 IU/L. ?If low titer or ectopic is suspected, resubmit specimen in 48-72 hours. [facility]. Metabolic Panel (01525)2023-10-27 04:49:57* Test Item Value Reference Range Interpretation Comme nts NA (test code = 3124423525) 139 mmol/L 135-145 K (test code = 1410754939) 4.0 mmol/L 3.5-5.0 CL (test code = 3428670138) 108 mmol/L 98-108 CO2 TOTAL (test code = 5868500498) 25 mmol/L 23-31 AGAP (test code = 3855262747) 6 2-16 BUN (test code = 2403847036) 14 mg/dL 7-23 GLUCOSE (test code = 3061524925) 97 mg/dL 70-110 CREATININE (test code = 2160-0) 0.56 mg/dL 0.50-1.04 TOTAL BILI (test code = 1660228792) 0.7 mg/dL 0.1-1.1 CALCIUM (test code = 5900759922) 8.8 mg/dL 8.6-10.6 T PROTEIN (test code = 6233655067) 8.4 g/dL 6.3-8.2 H ALBUMIN (test code = 0972420360) 4.1 g/dL 3.5-5.0 ALK PHOS (test code = 7545877919) 65 U/L 34-122 ALTv (test code = 1742-6) 21 U/L 5-35 AST(SGOT) (test code = 4310735636) 37 U/L 13-40 eGFR (test code = 93581-7) 134.2 mL/min/1.73m2 CKD-EPI eGFR (2020). Assuming creatinine has been stable day-to-day for at least three months, the eGFR indicates Category G1 (>= 90 mL/min/1.73 m2) Lab Interpretation (test code = 23054-7) Abnormal [facility] with [id number] 04:36:34* Test Item Value Reference Range Interpretation [...] 33.6 g/dL 31.6-35.1 RDW-SD (test code = 98817-0) 43.0 fL 39.0-49.9 RDW-CV (test code = 788-0) 13.5 % 12.0-15.5 PLT (test code = 777-3) 241 166-358 MPV (test code = 47824-2) 12.1 fL 9.5-12.9 NRBC/100 WBC (test code = 4623556414) 0.0 0.0-10.0 NRBC x10^3 (test code = 5578573833) See_Comment [Automated [employer] ge] The system which generated this result transmitted reference range: 10*3/?L. The reference range was not used to interpret this result as normal/abnormal. GRAN MAT (NEUT) % (test code = 770-8) 67.8 % IMM GRAN % (test code = 6673973635) 0.60 % LYMPH % (test code = 736-9) 21.2 % MONO % (test code = 5905-5) 8.9 % EOS % (test code = 713-8) 1.0 % BASO % (test code = 706-2) 0.5 % GRAN MAT x10^3(ANC) (test code = 7089217415) 8.58 10*3/uL 1.88-7.09 H IMM GRAN x10^3 (test code = 3360203691) 0.07 10*3/uL 0.00-0.06 H LYMPH x10^3 (test code = 731-0) 2.67 10*3/uL 1.32-3.29 MONO x10^3 (test code = 742-7) 1.12 10*3/uL 0.33-0.92 H EOS x10^3 (test code = 711-2) 0.12 10*3/uL 0.03-0.39 BASO x10^3 (test code = 704-7) 0.06 10*3/uL 0.01-0.07 Lab Interpretation (test code = 93847-9) Abnormal [facility] [id number] 04:27:00* Test Item Value Reference Range Interpretation Comme nts POCT PREG (test code = 1605) Negative On board controls acceptable with C Line (test code = 3574) Yes POCT PREG LOT # (test code = 3575) [id number] POCT PREG TEST DATE ( test code = 3576) 10-01-2024 Lab Interpretation (test cod e = 90697-6) Normal [facility]. METABOLIC PANEL (96375)2023-07-17 02:17:29* Test Item Value Reference Range Interpretation Comme nts NA (test code = 9334584362) 140 mmol/L 135-145 K (test code = 6984367418) 3.9 mmol/L 3.5-5.0 CL (test code = 8590396569) 103 mmol/L 98-108 CO2 TOTAL (test code = 1634154153) 29 mmol/L 23-31 AGAP (test code = 9951683964) 8 2-16 BUN (test code = 9228431758) 10 mg/dL 7-23 GLUCOSE (test code = 0997397740) 95 mg/dL 70-110 CREATININE (test code = 2163149062) 0.84 mg/dL 0.50-1.04 TOTAL BILI (test code = 9995444664) 0.3 mg/dL 0.1-1.1 CALCIUM (test code = 7180682176) 9.1 mg/dL 8.6-10.6 T PROTEIN (test code = 2840142799) 8.4 g/dL 6.3-8.2 H ALBUMIN (test code = 6283726208) 4.5 g/dL 3.5-5.0 ALK PHOS (test code = 3083541837) 80 U/L 34-122 ALTv (test code = 1742-6) 16 U/L 5-35 AST(SGOT) (test code = 2475136463) 22 U/L 13-40 eGFR (test code = 60009-0) 102.2 mL/min/1.73m2 CKD-EPI eGFR (2020). Assuming creatinine has been stable day-to-day for at least three months, the eGFR indicates Category G1 (>= 90 mL/min/1.73 m2) Lab Interpretation (test code = 60484-9) Abnormal [facility] WITH [id number] 02:15:48* Test Item Value Reference Range Interpretation Comme nts WBC (test code = 6690-2) 11.54 See_Comment H [Automated [employer]] The system which generated this result transmitted reference range: 4.30 - 11.10 10*3/?L. The reference range was not used to interpret this result as normal/abnormal. RBC (test code = 789-8) 4.87 See_Comment [Automated [employer]] The system which generated this result transmitted [...] 33.3 g/dL 31.6-35.1 RDW-SD (test code = 25727-3) 42.6 fL 39.0-49.9 RDW-CV (test code = 788-0) 13.2 % 12.0-15.5 PLT (test code = 777-3) 277 See_Comment [Automated messa ge] The system which generated this result transmitted reference range: 166 - 358 10*3/?L. The reference range was not used to interpret this result as normal/abnormal. MPV (test code = 73220-5) 10.5 fL 9.5-12.9 NRBC/100 WBC (test code = 0940771211) 0.0 See_Comment [Automated [employer] ssage] The system which generated this result transmitted reference range: 0.0 - 10.0 /100 WBCs. The reference range was not used to interpret this result as normal/abnormal. NRBC x10^3 (test code = 1504603577) See_Comment [Automated messa ge] The system which generated this result transmitted reference range: 10*3/?L. The reference range was not used to interpret this result as normal/abnormal. GRAN MAT (NEUT) % (test code = 770-8) 60.3 % IMM GRAN % (test code = 8230076572) 0.30 % LYMPH % (test code = 736-9) 25.9 % MONO % (test code = 5905-5) 10.8 % EOS % (test code = 713-8) 2.0 % BASO % (test code = 706-2) 0.7 % GRAN MAT x10^3(ANC) (test code = 1535010825) 6.95 10*3/uL 1.88-7.09 IMM GRAN x10^3 (test code = 9618995183) 0.04 10*3/uL 0.00-0.06 LYMPH x10^3 (test code = 731-0) 2.99 10*3/uL 1.32-3.29 MONO x10^3 (test code = 742-7) 1.25 10*3/uL 0.33-0.92 H EOS x10^3 (test code = 711-2) 0.23 10*3/uL 0.03-0.39 BASO x10^3 (test code = 704-7) 0.08 10*3/uL 0.01-0.07 H Lab Interpretation (test code = 11007-0) Abnormal [facility] [id number] 01:53:00* Test Item Value Reference Range Interpretation Comme nts POCT PREG (test code = 1605) Negative On board controls acceptable with C Line (test code = 3574) Yes POCT PREG LOT # (test code = 3575) [id number] POCT PREG TEST DATE ( test code = 3576) 2024-11-29 Lab Interpretation (test cod e = 28192-2) Normal [facility] [id number] 20:06:00* Test Item Value Reference Range Interpretation Comme nts POCT PREG (test code = 1605) Negative On board controls acceptable with C Line (test code = 3574) Yes POCT PREG LOT # (test code = 3575) POCT PREG TEST DATE ( test code = 3576) [facility] URINALYSIS W SPECIFIC [id number] 20:01:00* Test Item Value Reference Range Interpretation [...] APPEAR (test code = 3267) cloudy [facility] CenterRU[facility]LL[facility] SCREEN (ANGELIC) [id number] 19:07:18 * Test Item Value Reference Range Interpretation Comme nts Rubella screen IgG (test code = 7681388581) Positive Negative ZORAIDA (test code = ZORAIDA) Positive - Indicat es the patient was exposed to Rubella through infection or vaccination.Negative - Indicates the patient could be susceptible to Rubella infection.Equivocal - A second specimen should be sent. [facility] SCRE[facility] (ANGELIC) [id number] 19:07:18 * Test Item Value Reference Range Interpretation Comme [facility] Rubella screen IgG (test code = 7216554141) Positive Negative ZORAIDA (test code = ZORAIDA) Positive - Indicat es the patient was exposed to Rubella through infection or vaccination.Negative - Indicates the patient could be susceptible to Rubella infection.Equivocal - A second specimen should be sent. [facility] ONLY - SYPHILIS IGG/[id number] 17:26:01* Test Item Value Reference Range Interpretation Comme [facility] Syphilis IgG/IgM (test code = 07002-9) Non-reactive Non-reactive ZORAIDA (test code = ZORAIDA) Non-reactive - No serologic evidence of T. pallidum infection. Cannot exclude incubating or early syphilis. Submit a second specimen in 2-4 weeks if syphilis is clinically suspected. Equivocal - Further testing to follow. Reactive - Further testing to follow. Lab Interpretation (test code = 47785-2) Normal [facility] ONLY - SYPHILIS IGG/[id number] 17:26:01* Test Item Value Reference Range Interpretation Comme [facility] Syphilis IgG/IgM (test code = 34681-4) Non-reactive Non-reactive ZORAIDA (test code = ZORAIDA) Non-reactive - No serologic evidence of T. pallidum infection. Cannot exclude incubating or early syphilis. Submit a second specimen in 2-4 weeks if syphilis is clinically suspected. Equivocal - Further testing to follow. Reactive - Further testing to follow. Lab Interpretation (test code = 83294-0) Normal [facility] Center[facility]OSYLATED HEMOGLOBIN (A1C)2022-12-28 15:57:54* Test Item Value Reference Range Interpretation Comme [facility] HGB A1C (test code = 4548-4) 5.5 % 4.0-5.7 ZORAIDA (test code = ZORAIDA) Reference RangesNormal: <5.7%Prediabetes: 5.7 - 6.4%Diabetes: > 6.5% Lab Interpretation (test code = 23035-1) Normal [facility] Center[facility]OS[facility]ATED HEMOGLOBIN (A1C)2022-12-28 15:57:54* Test Item Value Reference Range Interpretation Comme nts HGB A1C (test code = 4548-4) 5.5 % 4.0-5.7 ZORAIDA (test code = ZORAIDA) Reference RangesNormal: <5.7%Prediabetes: 5.7 - 6.4%Diabetes: > 6.5% Lab Interpretation (test code = 96111-4) Normal [facility] 1/2 AG-AB WITH [id number] 12:20:58* Test Item Value Reference Range Interpretation Comme [facility] HIV Semi-quantitative (test code = 03465-6) 0.07 Negative ZORAIDA (test code = ZORAIDA) Non-reactive for HIV-1 antigen and HIV-1/HIV-2 antibodies. ?No laboratory evidence of HIV infection. ?Repeat in 2-4 weeks if acute HIV infection is suspected. [facility] 1/2 AG-AB WITH [id number] 12:20:58* Test Item Value Reference Range Interpretation Comme [facility] HIV Semi-quantitative (test code = 05190-6) 0.07 Negative ZORAIDA (test code = ZORAIDA) Non-reactive for HIV-1 antigen and HIV-1/HIV-2 antibodies. ?No laboratory evidence of HIV infection. ?Repeat in 2-4 weeks if acute HIV infection is suspected. [facility] [id number] 09:03:31* Test Item Value Reference Range Interpretation Comme [facility] HCV Ab (test code = 27086-6) Negative HCV Semi-Quantitative (test code = 86483-5) 0.02 [facility] [id number] 09:03:31* Test Item Value Reference Range Interpretation Comme [facility] HCV Ab (test code = 56629-3) Negative HCV Semi-Quantitative (test code = 49923-4) 0.02 [facility] CenterTHY[facility]ID STIMULATING [id number] 08:28:04 * Test Item Value Reference Range Interpretation Comme [facility] TSH (test code = 2808695010) 0.99 See_Comment [Automated messa ge] The system which generated this result transmitted reference range: 0.45 - 4.70 mIU/L. The reference range was not used to interpret this result as normal/abnormal. Lab Interpretation (test code = 11275-7) Normal [facility] CenterTHY[facility]ID STIM[facility]ATING [id number] 08:28:04 * Test Item Value Reference Range Interpretation Comme nts TSH (test code = 4591360134) 0.99 See_Comment [Automated messa ge] The system which generated this result transmitted reference range: 0.45 - 4.70 mIU/L. The reference range was not used to interpret this result as normal/abnormal. Lab Interpretation (test code = 30762-8) Normal [facility] CenterCB WITH [id number] 07:54:04* Test Item Value Reference Range Interpretation [...] 32.7 g/dL 31.6-35.1 RDW-SD (test code = 56492-1) 42.5 fL 39.0-49.9 RDW-CV (test code = 788-0) 13.0 % 12.0-15.5 PLT (test code = 777-3) 232 See_Comment [Automated messa ge] The system which generated this result transmitted reference range: 166 - 358 10*3/?L. The reference range was not used to interpret this result as normal/abnormal. MPV (test code = 77079-3) 11.5 fL 9.5-12.9 NRBC/100 WBC (test code = 8825293406) 0.0 See_Comment [Automated me ssage] The system which generated this result transmitted reference range: 0.0 - 10.0 /100 WBCs. The reference range was not used to interpret this result as normal/abnormal. NRBC x10^3 (test code = 1951027285) See_Comment [Automated messa ge] The system which generated this result transmitted reference range: 10*3/?L. The reference range was not used to interpret this result as normal/abnormal. GRAN MAT (NEUT) % (test code = 770-8) 57.6 % IMM GRAN % (test code = 2549159021) 0.20 % LYMPH % (test code = 736-9) 29.9 % MONO % (test code = 5905-5) 8.6 % EOS % (test code = 713-8) 2.7 % BASO % (test code = 706-2) 1.0 % GRAN MAT x10^3(ANC) (test code = 8469681762) 5.43 10*3/uL 1.88-7.09 IMM GRAN x10^3 (test code = 6295837565) 0.00-0.06 LYMPH x10^3 (test code = 731-0) 2.81 10*3/uL 1.32-3.29 MONO x10^3 (test code = 742-7) 0.81 10*3/uL 0.33-0.92 EOS x10^3 (test code = 711-2) 0.25 10*3/uL 0.03-0.39 BASO x10^3 (test code = 704-7) 0.09 10*3/uL 0.01-0.07 H Lab Interpretation (test code = 43418-6) Abnormal [facility] WITH [id number] 07:54:04* Test Item Value Reference Range Interpretation [...] 32.7 g/dL 31.6-35.1 RDW-SD (test code = 00968-5) 42.5 fL 39.0-49.9 RDW-CV (test code = 788-0) 13.0 % 12.0-15.5 PLT (test code = 777-3) 232 See_Comment [Automated messa ge] The system which generated this result transmitted reference range: 166 - 358 10*3/?L. The reference range was not used to interpret this result as normal/abnormal. MPV (test code = 39006-6) 11.5 fL 9.5-12.9 NRBC/100 WBC (test code = 7254693327) 0.0 See_Comment [Automated [employer] ssage] The system which generated this result transmitted reference range: 0.0 - 10.0 /100 WBCs. The reference range was not used to interpret this result as normal/abnormal. NRBC x10^3 (test code = 0899666941) See_Comment [Automated messa ge] The system which generated this result transmitted reference range: 10*3/?L. The reference range was not used to interpret this result as normal/abnormal. GRAN MAT (NEUT) % (test code = 770-8) 57.6 % IMM GRAN % (test code = 9334372043) 0.20 % LYMPH % (test code = 736-9) 29.9 % MONO % (test code = 5905-5) 8.6 % EOS % (test code = 713-8) 2.7 % BASO % (test code = 706-2) 1.0 % GRAN MAT x10^3(ANC) (test code = 6511553090) 5.43 10*3/uL 1.88-7.09 IMM GRAN x10^3 (test code = 5050654253) 0.00-0.06 LYMPH x10^3 (test code = 731-0) 2.81 10*3/uL 1.32-3.29 MONO x10^3 (test code = 742-7) 0.81 10*3/uL 0.33-0.92 EOS x10^3 (test code = 711-2) 0.25 10*3/uL 0.03-0.39 BASO x10^3 (test code = 704-7) 0.09 10*3/uL 0.01-0.07 H Lab Interpretation (test code = 48763-0) Abnormal [facility] [id number] 16:47:00* Test Item Value Reference Range Interpretation Comme nts POCT PREG (test code = 1605) Negative On board controls acceptable with C Line (test code = 3574) Yes POCT PREG LOT # (test code = 3575) POCT PREG TEST DATE ( test code = 3576) [facility] [id number] 16:47:00* Test Item Value Reference Range Interpretation Comme nts POCT PREG (test code = 1605) Negative On board controls acceptable with C Line (test code = 3574) Yes POCT PREG LOT # (test code = 3575) POCT PREG TEST DATE ( test code = 3576) [facility] [id number] 04:35:00* Test Item Value Reference Range Interpretation Comme nts POCT PREG (test code = 1605) negative On board controls acceptable with C Line (test code = 3574) present POCT PREG LOT # (test code = 3575) [id number] POCT PREG TEST DATE ( test code = 3576) 2023-11-25 Lab Interpretation (test cod e = 91722-5) [facility] 12:21:00* Test Item Value Reference Range Interpretation Comme nts SURGICAL (test code = SR) R UN DATE: 01/17/22 [facility] Lab PAGE 1 RUN TIME: 1221 Specimen Inquiry RUN USER: INTERFACE P ATIENT: PEREZKATRIN LOC: G U #: [id number] AGE/SX: 16/F ROOM: RE01/06/22[facility] DR: Facundo Kwon MD : 03 BED: DIS: STATUS: [facility] TLOC: SPEC #: [id number] RECD: 01/09/22 STATUS: JORDAN LEAVITT #: [id number] KI: 01/06/[address] [facility] [address]: Facundo Kwon MD ENTERED: 01/09/22 SP TYPE: SURGICAL OTHR DR: DOES_NOT KNOW ORDERED: 90008/2, 12732, ANATOMIC SPEC COPIES TO: DOES_NOT KNOW Facundo Kwon MD [address] [place] [address] PROCEDURES: 53722 (01/09/22) 29226 (01/10/22) TISSUES: A. DUODENUM BIOPSY B. STOMACH [...] ON NEXT PAGE R UN DATE: 01/17/22 [facility] PAGE 2 RUN TIME: 1221 Specimen Inquiry RUN USER: INTERFACE S PEC #: [id number] PATIENT: KATRIN PEREZ #[id number] (Continued) GROSS DESCRIPTION (Continued) Technical component excluding immunohistochemistry is performed at [facility], [address] [place] [address] Technical component of all immunohistochemistry is performed at [facility], [address], [address], [place] [address] Immunohistochemistry: This test was developed and its [...] 01/17/22 1221 END OF REPORT UR HCG [id number] 12:02:00* Test Item Value Reference Range Interpretation Comme nts UR HCG QUAL (test code = HCGQLU) NEGATIVE This HCGQL test is NOT applicable for MALE patients.Check with nurse about probable order error.If Tumor Marker Test needed, nurse should order test "HCGTU"(Test #[id number]) Notes Date/Time Note Provider Source 2024-09-30 18:14:02 Patient eloped from lobby. CIPAL EXAMINER Joe Srinivasan RN [facility] 2024-09-30 14:37:43 Pt arrived ambulatory suprapubic pain, and breast pain since 09/08/2024, frequent urination, nausea. LMP 09/03/2024. CIPAL EXAMINER Lynda Laird RN [facility] 2024-05-29 17:41:00 Not in lobby Lynda Mejia RN [facility] 2024-05-29 17:38:00 Not in lobby to discharge [facility] 2024-05-29 16:16:33 Summary: Triage CC: Patient vomited this morning and is late on her period, patient is here for a test PMHx: none PSH:none MEDS:none LMP: 04/19/24 Tetanus: UTD Awake, alert, oriented, resp reg unlabored, skin warm, color appropriate for race, moves all ext without difficulty, amb with out assistance Appears in no distress Shu Singh RN [facility] 2023-10-26 23:53:53 Pt discharged home following ERP eval. Pt given all education and information regarding s/s of worsening condition, the importance of follow up and prescription use and purpose. Pt verbalized understanding. Alert and ambulatory to pov with family. CIPAL EXAMINER Charlie Romero RN [facility] 2023-10-26 21:57:03 Pt given urine cup and placed in the lobby, pt advice to notify nurse with any other concerns or if symptoms worsen. [facility] 2023-10-26 21:53:04 Vaginal bleeding that started today with clots, pt states that she has used 4 pads. Pt c/o lower pelvic and lower back pain. Pt states LMP: 10/13/2023 Nassar RN [facility] 2023-09-20 23:01:05 Pt given printed and [...] with steady gait, in no apparent distress CIPAL EXAMINER Sulema Leger RN [facility] 2023-09-20 22:13:39 Pt arrives ambulatory to ED reporting that her lymph nodes are swollen and has been since she was here last time. After review pt was seen here 07/16/2023. She also wanted to be checked for all STD's. CIPAL EXAMINER Heidi Hall RN [facility] 2022-01-06 15:10:00 [facility] ([facility]) Post Anesthesia Evaluation REPORT#:[id number] REPORT STATUS: Signed DATE:01/06/22 TIME: 151 PATIENT: KATRIN PEREZ UNIT #: [id number] ROOM/BED: : 03 AGE: 16 SEX: F [...] eval prior DC home at 1511 RPT #:[id number] END OF REPORT [facility] 2022-01-06 13:42:00 [id number] [facility] PATIENT NAME: KATRIN PEREZ ADMIT DATE: 01/06/22 ACCOUNT NO: [id number] ROOM NO: AGE: 16 REPORT TYPE: ENDOSCOPY [...] 1:42 PM Procedure Code(s): --- Professional --- 33296, Esophagogastroduodenoscopy, flexible, transoral; with biopsy, single or multiple Diagnosis Code(s): --- Professional --- K29.80, Duodenitis without bleeding R10.13, Epigastric pain K30, Functional dyspepsia CPT copyright 2020 [employer]. All rights reserved. The codes documented in this report are preliminary and upon swager operator review may be revised to meet current compliance requirements. Scope In: Scope Out: Provation {[id number]}. pdf ProVation FT PDF PATIENT NAME: KATRIN PEREZ at 1359 PATIENT NAME: KATRIN PEREZ [facility]
[2024-11-15] MEDS ORDERED: KETOROLAC 30 MG/ML INJ ONE (11:07)
[2024-11-15] MEDS ORDERED: NA CHLORIDE 0.9% 1,000 ML ONE (11:07)
[2024-11-15] MEDS ORDERED: ONDANSETRON 4 MG/2 ML VIAL ONE (11:07)
[2024-11-15 11:39] LABS: Absolute Lymphocytes (CBC) 1.6 K/uL (0.7-4.9); Absolute Monocytes 0.7 K/uL (0.1-1.3); Absolute Neutrophil 1.8 K/uL (1.8-8.0); Basophils % 0.3 % (0-1.3); Eosinophils % 0.2 % (0-4.4); Hematocrit 41.5 % (36.0-45.0); Hemoglobin 14.1 g/dL (12.0-15.0); Lymphocytes % 38.7 % (15.3-44.8); MCH 28.6 pg (27.0-35.0); MCHC 33.9 g/dL (32.0-36.0); MCV 84.2 fL (80-100); MPV 9.2 fL (7.6-11.3); Monocytes % 16.3 % (3.3-12.3); Neutrophils % 44.5 % (41.7-73.7); Nucleated Red Blood Cells % 0.1 % (0-0); Platelets 195 thou/uL (152-406); RBC Red Blood Cell Count 4.93 M/uL (3.86-4.86); Red Cell Distribution Width 14.1 % (12.1-15.2)
[2024-11-15 11:56] LABS: Albumin 3.3 g/dL (3.4-5.0); Albumin/Globulin Ratio 0.7 (1.1-1.8); Anion Gap 4.6 mEq/L (5.0-15.0); Bilirubin Total 0.3 mg/dL (0.2-1.0); Globulin 4.6 g/dL (2.3-3.5); Potassium 3.6 mEq/L (3.5-5.1); Protein, Total 7.9 g/dL (6.4-8.2)
--- NOTE | 2024-11-15 12:17 | EDPHYS ---
Physician Documentation [facility] Name: Lizzie Chase Age: 19 yrs Sex: Female : 2005 Arrival Date: 11/15/2024 Time: 10:30 Bed 14 Private MD: ED Physician Clary Moreno HPI: 11/15 10:56 This 19 yrs old Female presents to ER via Ambulatory with complaints of sp3 Headache, Vomiting. 10:56 19-year-old female no significant past medical history presents with headache, sp3 generalized weakness and fatigue after consuming heavy amounts of alcohol yesterday. She denies any other substance. She had emesis yesterday but has now resolved. She denies any neck pain, chest pain, shortness of breath, lower abdominal pain, FACILITY REHAB DIRECTOR symptoms, symptoms or any other concerning signs or symptoms on ROS at this time.. TOUR NARRATOR: 10:56 LMP 10/29/2024, unknown ap3 Historical: - Allergies: 10:40 No Known Allergies; ll1 - Home Meds: 10:40 None [Active]; ll1 - PMHx: 10:40 pre-diabetic; ll1 - PSHx: 10:40 L knee surgery; ll1 - Immunization history:: Adult Immunizations up to date. - Infectious Disease History:: Denies. - Social history:: Smoking status: Patient reports the use of cigarette tobacco products, cigars. ROS: 10:56 Constitutional: Negative for fever, chills, and weight loss, Eyes: Negative for injury, sp3 pain, redness, and discharge, ENT: Negative for injury, pain, and discharge, Neck: Negative for injury, pain, and swelling, Cardiovascular: Negative for chest pain, palpitations, and edema, Respiratory: Negative for shortness of breath, cough, wheezing, and pleuritic chest pain, Back: Negative for injury and pain, MS/Extremity: Negative for injury and deformity, Skin: Negative for injury, rash, and discoloration, Psych: Negative for depression, anxiety, suicide ideation, homicidal ideation, and hallucinations, Allergy/Immunology: Negative for hives, rash, and allergies, Endocrine: Negative for neck swelling, polydipsia, polyuria, polyphagia, and marked weight changes, Hematologic/Lymphatic: Negative for swollen nodes, abnormal bleeding, and unusual bruising, 10:56 All other systems are negative, Exam: 10:56 Constitutional: This is a well developed, well nourished patient who is awake, alert, sp3 and in no acute distress. Head/Face: Normocephalic, atraumatic. Eyes: Pupils equal round and reactive to light, extra-ocular motions intact. Lids and lashes normal. Conjunctiva and sclera are non-icteric and not injected. Cornea within normal limits. Periorbital areas with no swelling, redness, or edema. ENT: Nares patent. No nasal discharge, no septal abnormalities noted. External auditory canals are clear. Oropharynx with no redness, swelling, or masses, exudates, or evidence of obstruction, uvula midline. Mucous membranes moist. Neck: Trachea midline, no thyromegaly or masses palpated, and no cervical lymphadenopathy. Supple, full range of motion without nuchal rigidity, or vertebral point tenderness. No Meningismus. Chest/axilla: Normal chest wall appearance and motion. Nontender with no deformity. No lesions are appreciated. Cardiovascular: Regular rate and rhythm with a normal S1 and S2. No gallops, murmurs, or rubs. Normal PMI, no JVD. No pulse deficits. Respiratory: Lungs have equal breath sounds bilaterally, clear to auscultation and percussion. No rales, rhonchi or wheezes noted. No increased work of breathing, no retractions or nasal flaring. Abdomen/GI: Soft, non-tender, with normal bowel sounds. No distension or tympany. No guarding or rebound. No evidence of tenderness throughout. Back: No spinal tenderness. No costovertebral tenderness. Full range of motion. Skin: Warm, dry with normal turgor. Normal color with no rashes, no lesions, and no evidence of cellulitis. MS/ Extremity: Pulses equal, no cyanosis. Neurovascular intact. Full, normal range of motion. Neuro: Awake and alert, GCS 15, oriented to person, place, time, and situation. Cranial nerves II-XII grossly intact. Motor strength 5/5 in all extremities. Sensory grossly intact. Cerebellar exam normal. Normal gait. Psych: Awake, alert, with orientation to person, place and time. Behavior, mood, and affect are within normal limits. Vital Signs: 10:40 BP 127 / 83; Pulse 88; Resp 17; Temp 98.1; Pulse Ox 100% ; Weight 80.74 kg; Height 5 ll1 ft. 0 in. ; Pain 10/10; 12:00 BP 117 / 92; Pulse 80; Resp 18; Pulse Ox 100% ; me1 10:40 Body Mass Index 34.76 (80.74 kg, 152.4 cm) ll1 10:40 Pain Scale: Adult ll1 MDM: 10:50 Medical Screening Exam initiated sp3 10:57 Data reviewed: vital signs, nurses notes, lab test result(s). ED course: 19-year-old sp3 female with headache and hangover type symptoms. I am not highly suspicious of any surgical abdomen or other critical abdominal pathology including pancreatitis, biliary pathology aortic pathology, sepsis or shock. Will administer IV fluids and check general electrolytes as well as administer Zofran and ketorolac. Probable discharge if workup negative.. 11/15 10:55 Order name: CBC with Diff; Complete Time: 12:16 sp3 11/15 10:55 Order name: CMP; Complete Time: 12:16 sp3 11/15 10:55 Order name: Lipase; Complete Time: 12:16 sp3 11/15 10:55 Order name: IV Saline Lock; Complete Time: 11:38 sp3 11/15 10:55 Order name: Labs collected and sent; Complete Time: 11:38 sp3 Administered Medications: 11:38 Drug: NS 0.9% IV 1000 ml IV at 1 bolus Per protocol; to be given as a bolus over 60 ap3 minutes Route: IV; Rate: 1 bolus; Site: right forearm; 12:22 Follow up: Response: No adverse reaction; IV Status: Completed infusion; IV Intake: me1 1000ml 11:38 Drug: Ketorolac IVP 30 mg IVP once Route: IVP; Site: right forearm; ap3 12:23 Follow up: Response: No adverse reaction; Pain is decreased me1 11:39 Drug: Ondansetron IVP 4 mg IVP once; over 2 minutes Route: IVP; Site: right forearm; ap3 12:22 Follow up: Response: No adverse reaction; Nausea is decreased me1 Disposition Summary: 11/15/24 12:16 Discharge Ordered Notes: Location: Home sp3 Condition: Stable sp3 Diagnosis - Dehydration, headache sp3 Followup: sp3 - With: Private Physician - When: Upon discharge from the Emergency Department - Reason: Continuance of care Discharge Instructions: - Discharge Summary Sheet sp3 - Dehydration, Adult sp3 Forms: - Medication Reconciliation Form sp3 - Antibiotic Education sp3 - Prescription Opioid Use sp3 - Patient Portal Instructions sp3 - Leadership Thank You Letter sp3 Signatures: Dispatcher [employer] EDHeidi Bradshaw RN RN ap3 Kasia Tran RN RN ll1 Clary Moreno MD MD sp3 Cecilia Montejo RN RN me1
--- NOTE | 2024-11-15 12:17 | ER ---
Nurse's Notes [facility] Name: Lizzie Chase Age: 19 yrs Sex: Female : 2005 Arrival Date: 11/15/2024 Time: 10:30 Bed 14 Private MD: Diagnosis: Dehydration, headache Presentation: 11/15 10:40 Chief complaint: Patient states: Lower abdominal pain with CAVANAUGH and N/V started this AM. ll1 No fever. Coronavirus screen: Client denies travel out of the [place] in the last 14 days. Coronavirus screen: cough unrelated to allergies, fatigue, headache, nausea, vomiting. Client presents with at least one sign or symptom that may indicate coronavirus-19. Standard/surgical mask placed on the client. Ebola Screen: Patient denies travel to an Ebola-affected area in the 21 days before illness onset. Initial Sepsis Screen: Does the patient meet any 2 criteria? No. Patient's initial sepsis screen is negative. Does the patient have a suspected source of infection? No. Patient's initial sepsis screen is negative. Risk Assessment: Do you want to hurt yourself or someone else? Patient reports no desire to harm self or others. Onset of symptoms was November 15, 2024. 10:40 Method Of Arrival: Ambulatory ll1 10:40 Acuity: NACHO 3 ll1 Triage Assessment: 10:41 General: Appears uncomfortable, Behavior is calm, cooperative, appropriate for age, ll1 Reports fatigue for. Pain: Complains of pain in head Pain Quality of pain is described as aching. EENT: Reports nasal congestion. Neuro: Reports headache. Respiratory: Reports cough that is. GI: Reports nausea, vomiting. 10:56 Headache History: The patient has had previous headaches. Pain: Pain began gradually, ap3 this morning. Pain: Also complains of nausea. 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 - Infectious Disease History:: Denies. - Social history:: Smoking status: Patient reports the use of cigarette tobacco products, cigars. Screenin:55 [facility] ED Fall Risk Assessment (Adult) History of falling in the last 3 months, ap3 including since admission No falls in past 3 months (0 pts) Confusion or Disorientation No (0 pts) Intoxicated or Sedated No (0 pts) Impaired Gait No (0 pts) Mobility Assist Device Used No (0 pt) Altered Elimination No (0 pt) Score/Fall Risk Level 0 - 2 = Low Risk Oriented to surroundings, Maintained a safe environment, Educated pt \T\ family on fall prevention, incl call for assistance when getting out of bed, Assessed \T\ reinforced patient's understanding of fall precautions, Hourly rounding (assess needs \T\ fall precautionary measures) done, Used ambulatory aids as needed (educated on \T\ assisted with). Abuse screen: Denies threats or abuse. Nutritional screening: No deficits noted. Tuberculosis screening: No symptoms or risk factors identified. Assessment: 10:55 General: Appears in no apparent distress. Behavior is calm, cooperative, appropriate ap3 for age. Pain: Complains of pain in abdomen. Neuro: Level of Consciousness is awake, alert, obeys commands, Oriented to person, place, time, situation, Appropriate for age. Cardiovascular: Patient's skin is warm and dry. Respiratory: Airway is patent Respiratory effort is even, unlabored, Respiratory pattern is regular, symmetrical. GI: Reports nausea, vomiting. Vital Signs: 10:40 BP 127 / 83; Pulse 88; Resp 17; Temp 98.1; Pulse Ox 100% ; Weight 80.74 kg; Height 5 ll1 ft. 0 in. ; Pain 10/10; 12:00 BP 117 / 92; Pulse 80; Resp 18; Pulse Ox 100% ; me1 10:40 Body Mass Index 34.76 (80.74 kg, 152.4 cm) ll1 10:40 Pain Scale: Adult ll1 ED Course: 10:34 Patient arrived in ED. sj2 10:34 Clary Moreno MD is Attending Physician. sp3 10:41 Triage completed. ll1 10:55 Heidi Acevedo, RADHA is Primary Nurse. ap3 10:56 Arm band placed on right wrist. ap3 10:56 Patient has correct armband on for positive identification. Bed in low position. Call ap3 light in reach. Side rails up X 1. Adult w/ patient. Provided Education on: fall risk education. Pulse ox on. NIBP on. 12:01 Initial lab(s) drawn, by me, sent to lab. Inserted saline lock: 22 gauge in right em1 forearm, using aseptic technique. Blood collected. Flushed with 10 mL NS. 12:21 No provider procedures requiring assistance completed. IV discontinued, intact, me1 bleeding controlled, No redness/swelling at site. Pressure dressing applied. Administered Medications: 11:38 Drug: NS 0.9% IV 1000 ml IV at 1 bolus Per protocol; to be given as a bolus over 60 ap3 minutes Route: IV; Rate: 1 bolus; Site: right forearm; 12:22 Follow up: Response: No adverse reaction; IV Status: Completed infusion; IV Intake: me1 1000ml 11:38 Drug: Ketorolac IVP 30 mg IVP once Route: IVP; Site: right forearm; ap3 12:23 Follow up: Response: No adverse reaction; Pain is decreased me1 11:39 Drug: Ondansetron IVP 4 mg IVP once; over 2 minutes Route: IVP; Site: right forearm; ap3 12:22 Follow up: Response: No adverse reaction; Nausea is decreased me1 Medication: 10:56 VIS not applicable for this client. ap3 Intake: 12:22 IV: 1000ml; Total: 1000ml. me1 Outcome: 12:16 Discharge ordered by . sp3 12:21 Discharged to home ambulatory, with friend, me1 12:21 Condition: stable 12:21 Discharge instructions given to patient, friend, Instructed on discharge instructions, follow up and referral plans. Demonstrated understanding of instructions, follow-up care, 12:22 Patient left the ED. me1 Signatures: Tayo Brumfield em1 Heidi Acevedo RN RN ap3 Kasia Tran RN RN ll1 Clary Moreno MD MD sp3 Cecilia Montejo RN RN me1 Keith Gardiner2
[2024-11-15 12:56] VITALS: BP 117/92; TEMP 98.1; O2SAT 100
== END 2024-11-15 12:22 | disposition home or self-care (01) ==
LOC: ER 10:30
DX: E86.0 Dehydration (principal)
CPT/HCPCS: 36415; 80053; 83690; 85025; 96361; 96374; 96375; 99284; J2405; J7030

== ENCOUNTER 2024-11-26 17:37 | Emergency (ER) | payer SELFPAY ==
--- OUTSIDE RECORDS SUMMARY | 2024-11-26 17:43 | XMS REPORT | Continuity of Care Document ---
Author Name Unknown Address [address] [facility] [place] [address] [facility] [place] Address [address] [facility] [place] [address] Care Team Providers Care [employer] Driver Name Role Phone Bolivar Cisse Primary Care Physician + [phone] LES HUGGINS Attending Clinician UnavailGERARD Ngo Attending Clinician Unavailable GERARD NOBLES Attending Clinician Unavailable Gerard Suazo Attending Clinician [phone] PHAN RICHARDSON Attending Clinician Unavailable Kristian TERRELL Attending Clinician Unavailable Kristian TERRELL Attending Clinician Unavailable Kristian Denney Attending Clinician [phone] ALAN BAEZA Attending Clinician Unavailable CATRACHITA NGUYEN Attending Clinician Unavail able Doctor Unassigned, [place] Attending Clinician U ROBERTO Alegria Attending Clinician Unavailable Roberto Griffith MD Attending Clinician [phone] Sandi Cardozo NP Attending Clinician [phone] VIANEY GARCIA Attending Clinician Unavailable FAROOQ DAVIS Attending Clinician Unavailable Ebrahim PSYCHOLOGISTS, Rania Attending Clinician [phone] Unknown, Attending Attending Clinician Unavailab JOYCE Kumar Attending Clinician UnavailJoyce Fuentes CNM Attending Clinician WENDY JANE Attending Clinician Unavaila WENDY Fowler Attending Clinician Unavaila malachi MANEYALEXIS S Attending Clinician Unavailable Campos PAC, Alexis S Attending Clinician [phone] ANNABELLE JO Attending Clinician Unavailable BANDAR CASTILLO Attending Clinician Unavailable Bandar Castillo MD Attending Clinician [phone] Facundo Kwon Attending Clinician Unavailable Jacques DORAN, Mayra Tony Attending Clinician + [phone] MAYRA SAAVEDRA Attending Clinician Unavailab RENETTA Lam S Attending Clinician Unavailable Jaymie PAC, Renetta S Attending Clinician [phone] , [facility] Attending Clinician Unavailable Annabelle Jo PA-C Attending Clinician [phone] Nurse, [facility] Attending Clinician Un available Vianey Garcia MD Attending Clinician [phone] Samanta Petty MD Attending Clinician [phone] Lucrecia Williamson RN Attending Clinician Unavailable Belinda Hall DO Attending Clinician [phone] Les Huggins MD Attending Clinician [phone] Lab, [facility] I Attending Clinician Unavailab Page Gorman Attending Clinician [phone] PAGE MEDINA Attending Clinician Unavailable PANKAJ REESE Attending Clinician UnavailMariaa Mccormack NP Attending Clinician [phone] MARIAA RAE Attending Clinician Unavailable LES HUGGINS Admitting Clinician UnavailSANDI Vaughan Admitting Clinician Unavailable KNOW, DOES_NOT Admitting Clinician Unavailable Les Huggins MD Admitting Clinician [phone] BELINDA HALL Admitting Clinician Unavailab le Payers Payer Name Policy Type Policy Number Effective Date Expirati on Date Source [place] [facility] [id number] 2020 00:00:00 LEANDRAMARY W/ YADY AndersenOO [id number] 2023 00:00:00 [facility] [place] [facility] [id number] 2024 00:00:00 [facility] 9 [id number] 2023 00:00:00 Problems Condition Name Condition Details Condition Category Status Onset Date Resolution Date Last Treatment Date Treating Clinician Comments Source Obesity (BMI 30-39.9) Obesity (BMI 30-39.9) Disease Active 12-30 00:00: 00 [facility] BMI 29.0-29.9, adult BMI 29.0-29.9, adult Disease Active 12-29 00:00: 00 [facility] Menorrhagi a with irregular cycle Menorrhagi a with irregular cycle Disease Active 11-09 00:00: 00 [facility] Encounter for other general counseling or advice on contracept ion Encounter for other general counseling or advice on contracept ion Disease Resolve d 0 5-05 00:00: 00 2022-12-30 00:00:00 2022-12-30 11:00:39 [facility] BMI 29.0-29.9, adult BMI 29.0-29.9, adult Disease Resolve d 5-05 00:00: 00 2022-12-30 00:00:00 2022-12-30 11:00:33 [facility] Vitamin D deficiency Vitamin D deficiency Disease Resolve d 3-16 00:00: 00 2022-12-30 00:00:00 2022-12-30 11:00:56 [facility] Depo-Prove ra contracept kamran status Depo-Prove ra contracept kamran status Disease Resolve d 0 3-16 00:00: 00 2022-12-30 00:00:00 2022-12-30 11:00:37 [facility] Acute medial meniscus tear, left, subsequent encounter Acute medial meniscus tear, left, subsequent encounter Disease Resolve d 9-22 00:00: 00 2022-12-30 00:00:00 2022-12-30 11:00:54 Overview: Formattin g of this note might be different from the original. Added automatic ally from request for surgery [id number] [facility] Allergies, Adverse Reactions, Alerts Allergy Name Allergy Type Status Severity Reaction(s) Onset Date Inactive Date Treating Clinician Comments Source No Known Allergie s DA Active U 01-06 00:00: 00 [facility] NO KNOWN ALLERGIE S Drug Class Active [facility] Social History Social Habit Start Date Stop Date Quantity Comments Source [facility] History SDOH Alcohol Comment [place] [facility] Alcoholic beverage intake 2024-05-31 00:00:00 2024-05-31 00:00:00 Lifetime non-drinker (finding) [facility] Alcohol intake 2023-10-26 00:00:00 2023-10-26 00:00:00 Lifetime non-drinker (finding) [facility] Exposure to SARS-CoV-2 (event) 2022-12-26 00:00:00 2023-01-05 08:00:00 Not sure [facility] Tobacco use and exposure 2022-12-27 00:00:00 2022-12-27 00:00:00 Smokeless tobacco non-user [facility] History of Social function 2022-12-27 00:00:00 2022-12-27 00:00:00 [facility] History SDOH Alcohol Frequency 2020-04-05 00:00:00 2020-04-05 00:00:00 1 [facility] History SDOH Alcohol Std Drinks 2020-04-05 00:00:00 2020-04-05 00:00:00 99 [facility] History SDOH Alcohol Binge 2020-04-05 00:00:00 2020-04-05 00:00:00 1 [facility] Sex assigned at 2003 00:00:00 2003 00:00:00 [facility] Smoking Status Start Date Stop Date Source Never smoked tobacco [facility] Medications Ordered Medication Name Filled Medication Name Start Date Stop Date Current Medication? Ordering Clinician Indication Dosage Frequency Signature (SIG) Comments Components Source cefdinir 300 mg capsule 2023-08 00:00: 00 06-09 04:59 :00 No [id number] 300mg Take 1 capsule by mouth every 12 (twelve) hours for 10 days. [facility] ketorolac (TORADOL) injection 30 mg 10-26 06:00: 00 10-26 05:23 :00 No 30mg 30 mg, Slow IV Push, ONCE, 1 dose, On Sun10/27/23 at 0000, Routine [facility] cefTRIAXone (ROCEPHIN) 1,000 mg in NaCl 0.9% (NS) 100 mL MINI-BAG 10-26 05:15: 00 10-26 05:52 :00 No 1000mg 1,000 mg, IV Piggyback, ONCE, 1 dose, On Sun10/26/23 at 2315, Administer over 30 Minutes, 100 mL
Reas on for Anti-Infec tive: Documented Infection< br>Documen christiano Infection Site: Urine
D uration of Therapy: Other (see Comments) [facility] cefdinir 300 mg capsule 10-25 00:00: 00 11-02 05:59 :00 No [id number] 300mg Take 1 capsule by mouth in the morning and 1 capsule in the evening. Do all this for 7 days. [facility] methylPREDN ISolone 4 mg tablets 09-20 00:00: 00 Yes [id number] Take by mouth SEE-INSTRU CTIONS. follow package directions [facility] amoxicillin -clavulanat e 875-125 mg per tablet 09-20 00:00: 00 Yes [id number] 1{tbl} Take 1 tablet by mouth every 12 (twelve) hours. [facility] iopamidol (ISOVUE 370-500 mL) injection 100 mL 2022-08 03:30: 00 07-17 03:30 :00 No [id number] 100mL 100 mL, Intravenou s, ONCE, 1 dose, On Sun07/16/23 at 2130, Routine [facility] methylPREDN ISolone 4 mg tablets 2022-08 00:00: 00 Yes [id number] Take by mouth SEE-INSTRU CTIONS. follow package directions [facility] clindamycin 300 mg capsule 2022-08 00:00: 00 07-27 05:59 :00 No [id number] 300mg Take 1 capsule by mouth 4 (four) times daily for 10 days. [facility] cefdinir 300 mg capsule 05-17 00:00: 00 05-28 04:59 :00 No [id number] 600mg Take 2 capsules by mouth in the morning for 10 days. [facility] acetaminoph en (TYLENOL) tablet 650 mg 01-05 13:15: 00 01-05 13:14 :00 No 650mg 650 mg, Oral, ONCE, 1 dose, On Sun01/05/23 at 0815, ALLI [facility] amoxicillin 500 mg capsule 01-05 00:00: 00 Yes [id number] 500mg Take 1 capsule by mouth in the morning and 1 capsule at noon and 1 capsule in the evening. [facility] ondansetron 4 mg disintegrat ing tablet 01-05 00:00: 00 Yes [id number] 4mg Take 1 tablet by mouth every 4 (four) hours as needed for Nausea and Vomiting (N/V). [facility] naproxen 500 mg tablet 01-05 00:00: 00 01-16 04:59 :00 No [id number] 500mg Take 1 tablet by mouth in the morning and 1 tablet in the evening. Take with meals. Do all this for 10 days. [facility] norethindro ne-teestrad ioL-iron (MICROGESTI N FE) 1.5 mg-30 mcg (21)/75 mg (7) per tablet 12-27 00:00: 00 Yes [id number] 1{tbl} Take 1 tablet by mouth in the morning. [facility] naproxen (NAPROSYN) 500 mg tablet 2- 00:00: 00 12-27 00:00 :00 No [id number] 500mg Take 1 tablet by mouth in the morning and 1 tablet in the evening. Take with meals. [facility] ibuprofen (IBU) tablet 800 mg 1-30 04:30: 00 09-25 04:33 :00 No 800mg 800 mg, Oral, ONCE, 1 dose, On 09/24/22 at 2230, ALLI [facility] No known medications 5-05 16:08: 37 No [facility] pantoprazol e 40 mg EC tablet 4-11 00:00: 00 12-29 00:00 :00 No 40mg Take 40 mg by mouth daily. [facility] metroNIDAZO LE 500 mg tablet 3-23 00:00: 00 12-29 00:00 :00 No [id number] 500mg Take 1 tablet by mouth every 12 (twelve) hours. [facility] ergocalcife rol, vitamin d2, 1,250 mcg (50,000 unit) capsule 1-15 00:00: 00 12-29 00:00 :00 No [id number] 08928D Take 1 capsule by mouth weekly. [facility] ranitidine (ZANTAC) 150 mg tablet 2-11 00:00: 00 12-29 00:00 :00 No 150mg Take 1 tablet by mouth 2 (two) times daily. Follow up with your MD for further evaluation and treatment. [facility] Immunizations Ordered Immunization Name Filled Immunization Name Date Status Comments Source HPV9 2022-12-27 00:00:00 Completed HPV9 2022-12-27 00:00:00 Completed HPV9 2022-12-27 00:00:00 Completed [facility] HPV9 2022-12-27 00:00:00 Completed [facility] HPV9 2022-12-27 00:00:00 Completed [facility] Meningococcal Polysaccharide (groups A, C, Y and W-135) conjugate vaccine (MCV4P) 2020-03-30 00:00:00 Completed Meningococcal Polysaccharide (groups A, C, Y and W-135) conjugate vaccine (MCV4P) 2020-03-30 00:00:00 Completed Meningococcal Polysaccharide (groups A, C, Y and W-135) conjugate vaccine (MCV4P) 2020-03-30 00:00:00 Completed [facility] Meningococcal Polysaccharide (groups A, C, Y and W-135) conjugate vaccine (MCV4P) 2020-03-30 00:00:00 Completed [facility] Meningococcal Polysaccharide (groups A, C, Y and W-135) conjugate vaccine (MCV4P) 2020-03-30 00:00:00 Completed [facility] HPV9 2016-04-17 00:00:00 Completed Meningococcal Polysaccharide (groups A, C, Y and W-135) conjugate vaccine (MCV4P) 2016-04-17 00:00:00 Completed TDAP 2016-04-17 00:00:00 Completed HPV9 2016-04-17 00:00:00 Completed Meningococcal Polysaccharide (groups A, C, Y and W-135) conjugate vaccine (MCV4P) 2016-04-17 00:00:00 Completed TDAP 2016-04-17 00:00:00 Completed HPV9 2016-04-17 00:00:00 Completed [facility] Meningococcal Polysaccharide (groups A, C, Y and W-135) conjugate vaccine (MCV4P) 2016-04-17 00:00:00 Completed [facility] TDAP 2016-04-17 00:00:00 Completed [facility] HPV9 2016-04-17 00:00:00 Completed [facility] Meningococcal Polysaccharide (groups A, C, Y and W-135) conjugate vaccine (MCV4P) 2016-04-17 00:00:00 Completed [facility] TDAP 2016-04-17 00:00:00 Completed [facility] HPV9 2016-04-17 00:00:00 Completed [facility] Meningococcal Polysaccharide (groups A, C, Y and W-135) conjugate vaccine (MCV4P) 2016-04-17 00:00:00 Completed [facility] TDAP 2016-04-17 00:00:00 Completed [facility] HEPATITIS A 2009-06-30 00:00:00 Completed Varicella (varivax)(chicken pox) 2009-06-30 00:00:00 Completed HEPATITIS A 2009-06-30 00:00:00 Completed Varicella (varivax)(chicken pox) 2009-06-30 00:00:00 Completed HEPATITIS A 2009-06-30 00:00:00 Completed [facility] Varicella (varivax)(chicken pox) 2009-06-30 00:00:00 Completed [facility] HEPATITIS A 2009-06-30 00:00:00 Completed [facility] Varicella (varivax)(chicken pox) 2009-06-30 00:00:00 Completed [facility] HEPATITIS A 2009-06-30 00:00:00 Completed [facility] Varicella (varivax)(chicken pox) 2009-06-30 00:00:00 Completed [facility] DTaP, Unspecified Formulation 2007-06-10 [...] Completed DTaP, Unspecified Formulation 2007-06-10 00:00:00 Completed [facility] HEPATITIS A 2007-06-10 00:00:00 Completed [facility] Hib-HbOC 2007-06-10 00:00:00 Completed [facility] MMR 2007-06-10 00:00:00 Completed [facility] Pneumococcal 7 Conjugate, PCV7 (Prevnar7) 2007-06-10 00:00:00 Completed [facility] IPV 2007-06-10 00:00:00 Completed [facility] DTaP, Unspecified Formulation 2007-06-10 00:00:00 Completed [facility] HEPATITIS A 2007-06-10 00:00:00 Completed [facility] Hib-HbOC 2007-06-10 00:00:00 Completed [facility] MMR 2007-06-10 00:00:00 Completed [facility] Pneumococcal 7 Conjugate, PCV7 (Prevnar7) 2007-06-10 00:00:00 Completed [facility] IPV 2007-06-10 00:00:00 Completed [facility] DTaP, Unspecified Formulation 2007-06-10 00:00:00 Completed [facility] HEPATITIS A 2007-06-10 00:00:00 Completed [facility] Hib-HbOC 2007-06-10 00:00:00 Completed [facility] MMR 2007-06-10 00:00:00 Completed [facility] Pneumococcal 7 Conjugate, PCV7 (Prevnar7) 2007-06-10 00:00:00 Completed [facility] IPV 2007-06-10 00:00:00 Completed [facility] DTaP, Unspecified Formulation 2004-03-30 00:00:00 Completed [facility] HIB 4 Dose Schedule 2004-03-30 00:00:00 Completed MMR 2004-03-30 00:00:00 Completed IPV 2004-03-30 00:00:00 Completed Varicella (varivax)(chicken pox) 2004-03-30 00:00:00 Completed DTaP, Unspecified Formulation 2004-03-30 00:00:00 Completed [facility] HIB 4 Dose Schedule 2004-03-30 00:00:00 Completed MMR 2004-03-30 00:00:00 Completed IPV 2004-03-30 00:00:00 Completed Varicella (varivax)(chicken pox) 2004-03-30 00:00:00 Completed DTaP, Unspecified Formulation 2004-03-30 00:00:00 Completed [facility] HIB 4 Dose Schedule 2004-03-30 00:00:00 Completed [facility] MMR 2004-03-30 00:00:00 Completed [facility] IPV 2004-03-30 00:00:00 Completed [facility] Varicella (varivax)(chicken pox) 2004-03-30 00:00:00 Completed [facility] DTaP, Unspecified Formulation 2004-03-30 00:00:00 Completed [facility] HIB 4 Dose Schedule 2004-03-30 00:00:00 Completed [facility] MMR 2004-03-30 00:00:00 Completed [facility] IPV 2004-03-30 00:00:00 Completed [facility] Varicella (varivax)(chicken pox) 2004-03-30 00:00:00 Completed [facility] DTaP, Unspecified Formulation 2004-03-30 00:00:00 Completed [facility] HIB 4 Dose Schedule 2004-03-30 00:00:00 Completed [facility] MMR 2004-03-30 00:00:00 Completed [facility] IPV 2004-03-30 00:00:00 Completed [facility] Varicella (varivax)(chicken pox) 2004-03-30 00:00:00 Completed [facility] DTaP, Unspecified Formulation 2003 [...] Completed DTaP, Unspecified Formulation 2003 00:00:00 Completed [facility] Hep B, Adol or Pedi Dosage 2003 00:00:00 Completed [facility] HIB 4 Dose Schedule 2003 00:00:00 Completed [facility] Pneumococcal 7 Conjugate, PCV7 (Prevnar7) 2003 00:00:00 Completed [facility] IPV 2003 00:00:00 Completed [facility] DTaP, Unspecified Formulation 2003 00:00:00 Completed [facility] Hep B, Adol or Pedi Dosage 2003 00:00:00 Completed [facility] HIB 4 Dose Schedule 2003 00:00:00 Completed [facility] Pneumococcal 7 Conjugate, PCV7 (Prevnar7) 2003 00:00:00 Completed [facility] IPV 2003 00:00:00 Completed [facility] DTaP, Unspecified Formulation 2003 00:00:00 Completed [facility] Hep B, Adol or Pedi Dosage 2003 00:00:00 Completed [facility] HIB 4 Dose Schedule 2003 00:00:00 Completed [facility] Pneumococcal 7 Conjugate, PCV7 (Prevnar7) 2003 00:00:00 Completed [facility] IPV 2003 00:00:00 Completed [facility] DTaP, Unspecified Formulation 2003 [...] Completed DTaP, Unspecified Formulation 2003 00:00:00 Completed [facility] Hep B, Adol or Pedi Dosage 2003 00:00:00 Completed [facility] HIB 4 Dose Schedule 2003 00:00:00 Completed [facility] Pneumococcal 7 Conjugate, PCV7 (Prevnar7) 2003 00:00:00 Completed [facility] IPV 2003 00:00:00 Completed [facility] DTaP, Unspecified Formulation 2003 00:00:00 Completed [facility] Hep B, Adol or Pedi Dosage 2003 00:00:00 Completed [facility] HIB 4 Dose Schedule 2003 00:00:00 Completed [facility] Pneumococcal 7 Conjugate, PCV7 (Prevnar7) 2003 00:00:00 Completed [facility] IPV 2003 00:00:00 Completed [facility] DTaP, Unspecified Formulation 2003 00:00:00 Completed [facility] Hep B, Adol or Pedi Dosage 2003 00:00:00 Completed [facility] HIB 4 Dose Schedule 2003 00:00:00 Completed [facility] Pneumococcal 7 Conjugate, PCV7 (Prevnar7) 2003 00:00:00 Completed [facility] IPV 2003 00:00:00 Completed [facility] Hep B, Adol or Pedi Dosage 2003 00:00:00 Completed Hep B, Adol or Pedi Dosage 2003 00:00:00 Completed Hep B, Adol or Pedi Dosage 2003 00:00:00 Completed [facility] Hep B, Adol or Pedi Dosage 2003 00:00:00 Completed [facility] Hep B, Adol or Pedi Dosage 2003 00:00:00 Completed [facility] DTaP, Unspecified Formulation Unknown Completed [facility] HEPATITIS A Unknown [facility] Hep B, Adol or Pedi Dosage Unknown Completed [facility] Hib-HbOC Unknown Completed [facility] HIB 4 Dose Schedule Unknown Completed [facility] HPV9 Unknown Completed [facility] Meningococcal Polysaccharide (groups A, C, Y and W-135) conjugate vaccine (MCV4P) Unknown Completed [facility] MMR Unknown Completed [facility] Pneumococcal 7 Conjugate, PCV7 (Prevnar7) Unknown Completed [facility] IPV Unknown Completed [facility] Varicella (varivax)(chicken pox) Unknown Completed [facility] TDAP Unknown Completed [facility] DTaP, Unspecified Formulation Unknown Completed [facility] HEPATITIS A Unknown Completed [facility] Hep B, Adol or Pedi Dosage Unknown Completed [facility] Hib-HbOC Unknown Completed [facility] HIB 4 Dose Schedule Unknown Completed [facility] HPV9 Unknown Completed [facility] Meningococcal Polysaccharide (groups A, C, Y and W-135) conjugate vaccine (MCV4P) Unknown Completed [facility] MMR Unknown Completed [facility] Pneumococcal 7 Conjugate, PCV7 (Prevnar7) Unknown Completed [facility] IPV Unknown Completed [facility] Varicella (varivax)(chicken pox) Unknown Completed [facility] TDAP Unknown Completed [facility] DTaP, Unspecified Formulation Unknown Completed [facility] HEPATITIS A Unknown Completed [facility] Hep B, Adol or Pedi Dosage Unknown Completed [facility] Hib-HbOC Unknown Completed [facility] HIB 4 Dose Schedule Unknown Completed [facility] HPV9 Unknown Completed [facility] Meningococcal Polysaccharide (groups A, C, Y and W-135) conjugate vaccine (MCV4P) Unknown Completed [facility] MMR Unknown Completed [facility] Pneumococcal 7 Conjugate, PCV7 (Prevnar7) Unknown Completed [facility] IPV Unknown Completed [facility] Varicella (varivax)(chicken pox) Unknown Completed [facility] TDAP Unknown Completed [facility] DTaP, Unspecified Formulation Unknown Completed [facility] HEPATITIS A Unknown Completed [facility] Hep B, Adol or Pedi Dosage Unknown Completed [facility] Hib-HbOC Unknown Completed [facility] HIB 4 Dose Schedule Unknown Completed [facility] HPV9 Unknown Completed [facility] Meningococcal Polysaccharide (groups A, C, Y and W-135) conjugate vaccine (MCV4P) Unknown Completed [facility] MMR Unknown Completed [facility] Pneumococcal 7 Conjugate, PCV7 (Prevnar7) Unknown Completed [facility] IPV Unknown Completed [facility] Varicella (varivax)(chicken pox) Unknown Completed [facility] TDAP Unknown Completed [facility] DTaP, Unspecified Formulation Unknown Completed [facility] HEPATITIS A Unknown Completed [facility] Hep B, Adol or Pedi Dosage Unknown Completed [facility] Hib-HbOC Unknown Completed [facility] HIB 4 Dose Schedule Unknown Completed [facility] HPV9 Unknown Completed [facility] Meningococcal Polysaccharide (groups A, C, Y and W-135) conjugate vaccine (MCV4P) Unknown Completed [facility] MMR Unknown Completed [facility] Pneumococcal 7 Conjugate, PCV7 (Prevnar7) Unknown Completed [facility] IPV Unknown Completed [facility] Varicella (varivax)(chicken pox) Unknown Completed [facility] TDAP Unknown Completed [facility] Vital Signs Vital Name Observation Time Observation Value Comments S ource Systolic blood pressure 2024-09-30 20:40:00 125 mm[Hg] [facility] Diastolic blood pressure 2024-09-30 20:40:00 85 mm[Hg] [facility] Heart rate 2024-09-30 20:40:00 78 /min [facility] [facility] Body temperature 2024-09-30 20:40:00 36.61 [facility] Respiratory rate 2024-09-30 20:40:00 16 /min [facility] Oxygen saturation in Arterial blood by Pulse oximetry 2024-09-30 20:40:00 97 /min [facility] Body height 2024-09-30 20:37:00 152.4 cm [facility] Body weight 2024-09-30 20:37:00 78.245 [facility] BMI 2024-09-30 20:37:00 33.69 kg/m2 [facility] Systolic blood pressure 2024-05-29 21:17:00 135 mm[Hg] [facility] Diastolic blood pressure 2024-05-29 21:17:00 91 mm[Hg] [facility] Heart rate 2024-05-29 21:17:00 102 /min [facility] Body temperature 2024-05-29 21:17:00 36.89 [facility] Respiratory rate 2024-05-29 21:17:00 16 /min [facility] Body height 2024-05-29 21:17:00 152.4 cm [facility] Body weight 2024-05-29 21:17:00 79.833 kg [facility] BMI 2024-05-29 21:17:00 34.37 kg/m2 [facility] Oxygen saturation in Arterial blood by Pulse oximetry 2024-05-29 21:17:00 100 /min [facility] Systolic blood pressure 2023-10-27 03:54:00 135 mm[Hg] [facility] Diastolic blood pressure 2023-10-27 03:54:00 103 mm[Hg] [facility] Heart rate 2023-10-27 03:54:00 95 /min [facility] Body temperature 2023-10-27 03:54:00 36.72 [facility] Respiratory rate 2023-10-27 03:54:00 18 /min [facility] Body height 2023-10-27 03:54:00 152.4 cm [facility] Body weight 2023-10-27 03:54:00 70.761 [facility] BMI 2023-10-27 03:54:00 30.47 kg/m2 [facility] Oxygen saturation in Arterial blood by Pulse oximetry 2023-10-27 03:54:00 100 /min [facility] Systolic blood pressure 2023-09-21 04:15:00 120 mm[Hg] [facility] Diastolic blood pressure 2023-09-21 04:15:00 68 mm[Hg] [facility] Heart rate 2023-09-21 04:15:00 93 /min [facility] Body temperature 2023-09-21 04:15:00 36.89 [facility] Respiratory rate 2023-09-21 04:15:00 16 /min [facility] Body height 2023-09-21 04:15:00 152.4 cm [facility] Body weight 2023-09-21 04:15:00 70.761 [facility] BMI 2023-09-21 04:15:00 30.47 kg/m2 [facility] Oxygen saturation in Arterial blood by Pulse oximetry 2023-09-21 04:15:00 100 /min [facility] Systolic blood pressure 2023-07-17 03:00:00 122 mm[Hg] [facility] Diastolic blood pressure 2023-07-17 03:00:00 86 mm[Hg] [facility] Heart rate 2023-07-17 03:00:00 73 /min [facility] Respiratory rate 2023-07-17 03:00:00 16 /min [facility] Oxygen saturation in Arterial blood by Pulse oximetry 2023-07-17 03:00:00 100 /min [facility] Body weight 2023-07-17 00:43:00 69.854 [facility] BMI 2023-07-17 00:43:00 30.08 kg/m2 [facility] Body temperature 2023-07-17 00:43:00 36.78 [facility] Body height 2023-07-17 00:43:00 152.4 cm [facility] Systolic blood pressure 2023-05-17 19:58:00 112 mm[Hg] [facility] Diastolic blood pressure 2023-05-17 19:58:00 76 mm[Hg] [facility] Heart rate 2023-05-17 19:58:00 71 /min [facility] Body temperature 2023-05-17 19:58:00 36.61 [facility] Respiratory rate 2023-05-17 19:58:00 16 /min [facility] Body height 2023-05-17 19:58:00 152.4 cm [facility] Body weight 2023-05-17 19:58:00 66.225 kg [facility] BMI 2023-05-17 19:58:00 28.51 kg/m2 [facility] Oxygen saturation in Arterial blood by Pulse oximetry 2023-05-17 19:58:00 98 /min [facility] Body temperature 2023-01-05 14:10:13 37.72 [facility] Systolic blood pressure 2023-01-05 14:00:00 119 mm[Hg] [facility] Diastolic blood pressure 2023-01-05 14:00:00 79 mm[Hg] [facility] Heart rate 2023-01-05 14:00:00 89 /min [facility] Respiratory rate 2023-01-05 14:00:00 15 /min [facility] Oxygen saturation in Arterial blood by Pulse oximetry 2023-01-05 14:00:00 96 /min [facility] Body height 2023-01-05 13:02:00 152.4 cm [facility] Body weight 2023-01-05 13:02:00 72.576 kg [facility] BMI 2023-01-05 13:02:00 31.25 kg/m2 [facility] Systolic blood pressure 2022-12-27 16:46:00 105 mm[Hg] [facility] Diastolic blood pressure 2022-12-27 16:46:00 70 mm[Hg] [facility] Heart rate 2022-12-27 16:46:00 71 /min [facility] Body temperature 2022-12-27 16:46:00 36.78 [facility] Respiratory rate 2022-12-27 16:46:00 18 /min [facility] Body height 2022-12-27 16:46:00 152.4 cm [facility] Body weight 2022-12-27 16:46:00 73.539 [facility] BMI 2022-12-27 16:46:00 31.66 kg/m2 [facility] Systolic blood pressure 2022-09-28 02:27:00 133 mm[Hg] [facility] Diastolic blood pressure 2022-09-28 02:27:00 91 mm[Hg] [facility] Heart rate 2022-09-28 02:27:00 94 /min [facility] Body temperature 2022-09-28 02:27:00 37.39 [facility] Respiratory rate 2022-09-28 02:27:00 16 /min [facility] Body height 2022-09-28 02:27:00 152.4 cm [facility] Body weight 2022-09-28 02:27:00 68.13 kg [facility] BMI 2022-09-28 02:27:00 29.33 kg/m2 [facility] Oxygen saturation in Arterial blood by Pulse oximetry 2022-09-28 02:27:00 100 /min [facility] Systolic blood pressure 2022-09-25 03:45:00 124 mm[Hg] [facility] Diastolic blood pressure 2022-09-25 03:45:00 79 mm[Hg] [facility] Heart rate 2022-09-25 03:45:00 81 /min [facility] Body temperature 2022-09-25 03:45:00 36.89 [facility] Respiratory rate 2022-09-25 03:45:00 15 /min [facility] Body height 2022-09-25 03:45:00 152.4 cm [facility] Body weight 2022-09-25 03:45:00 68.04 kg [facility] BMI 2022-09-25 03:45:00 29.29 kg/m2 [facility] Oxygen saturation in Arterial blood by Pulse oximetry 2022-09-25 03:45:00 100 /min [facility] Systolic blood pressure 2021-12-29 20:04:00 134 mm[Hg] [facility] Diastolic blood pressure 2021-12-29 20:04:00 86 mm[Hg] [facility] Heart rate 2021-12-29 20:04:00 76 /min [facility] Body temperature 2021-12-29 20:04:00 36.94 [facility] Respiratory rate 2021-12-29 20:04:00 18 /min [facility] Body height 2021-12-29 20:04:00 152.4 cm [facility] Body weight 2021-12-29 20:04:00 68.856 kg [facility] BMI 2021-12-29 20:04:00 29.65 kg[facility]m2 [facility] Body mass index (BMI) [Percentile] Per age and sex 2021-12-29 20:04:00 93.49 % [facility] Procedures Procedure Date / Time Performed Performing Clinician Source POCT TEST 2024-09-30 21:32:00 Darion Nobles [facility] URINALYSIS 2024-09-30 21:30:00 Gerard Nobles [facility] INFLUENZA A/B RSV COVID NAAT 2024-09-30 21:30:00 Gerard Nobles [facility] URINALYSIS 2024-05-29 21:20:00 Kristian Terrell [facility] POCT TEST 2024-05-29 21:20:00 Kristian Terrell [facility] POCT TEST 2023-10-27 04:27:00 Darion Nobles [facility] TEST, SERUM 2023-10-27 04:26:00 Lory Nobles [facility] COMP. METABOLIC PANEL (65758) 2023-10-27 04:26:00 Gerard Nobles [facility] CBC WITH DIFF 2023-10-27 04:26:00 Gerard Nobles [facility] URINALYSIS 2023-10-27 04:26:00 Gerard Nobles [facility] CONSENT/REFUSAL FOR DIAGNOSIS AND TREATMENT 2023-10-27 03:50:18 Doctor Unassigned, [place] [facility] ASSIGNMENT OF BENEFITS 2023-09-28 16:03:04 Docto r Unassigned, [place] [facility] NOTICE OF PRIVACY PRACTICES 2023-09-21 04:06:10 Doctor Unassigned, [place] [facility] CONSENT/REFUSAL FOR DIAGNOSIS AND TREATMENT 2023-09-21 04:05:29 Doctor Unassigned, [place] [facility] RAPID STREP SCREEN FOR GROUP A 2023-07-17 03:07:00 Roberto Griffith [facility] POCT TEST 2023-07-17 01:53:00 Marcelina Cardozo [facility] COMP. METABOLIC PANEL ([id number]) 2023-07-17 01:51:00 Sandi Cardozo [facility] CBC WITH DIFF 2023-07-17 01:51:00 Sandi Cardozo [facility] URINALYSIS 2023-07-17 [facility]:51[facility] 2023-07-17 01:51:00 Roberto Griffith [facility] CONSENT/REFUSAL FOR DIAGNOSIS AND TREATMENT 2023-07-17 00:37:35 Doctor Unassigned, [place] [facility] POCT TEST 2023-05-17 20:06:00 Farooq Davis [facility] POCT URINALYSIS 2023-05-17 20:00:00 Farooq Davis [facility] RAPID STREP SCREEN FOR GROUP A 2023-01-05 13:18:00 Roberto Griffith [facility] RAPID INFLUENZA A/B 2023-01-05 13:09:00 Aminah Griffith [facility] COVID-19 (ID NOW RAPID TESTING) 2023-01-05 13:09:00 Roberto Griffith [facility] THYROID STIMULATING HORMONE 2022-12-27 17:10:00 Joyce Lopez [facility] CBC WITH DIFF 2022-12-27 17:10:00 Joyce Lopez [facility] GLYCOSYLATED HEMOGLOBIN (A1C) 2022-12-27 17:10:00 Joyce Lopez [facility] RUBELLA SCREEN IGG 2022-12-27 17:10:00 Gretchen Lopez [facility] HCV ANTIBODY 2022-12-27 17:10:00 [facility] GC & CHLAMYDIA AMPLIFIED ASSAY 2022-12-27 17:10:00 Joyce Lopez [facility] HIV 1/2 AG-AB WITH REFLEX 2022-12-27 17:10:00 Joyce Lopez [facility] SYPHILIS IGG/IGM 2022-12-27 17:10:00 Joyce Lopez [facility] GARDASIL 9 (HPV 9V) VACCINE 2022-12-27 16:53:08 Joyce Lopez [facility] POCT TEST 2022-12-27 16:47:00 Danielle Lopez [facility] ASSIGNMENT OF BENEFITS 2022-12-27 15:53:31 Docto r Unassigned, [place] [facility] CONSENT/REFUSAL FOR DIAGNOSIS AND TREATMENT 2022-09-28 02:20:10 Doctor Unassigned, [place] [facility] POCT TEST 2022-09-25 04:35:00 Bandar Castillo [facility] NOTICE OF PRIVACY PRACTICES 2022-09-25 03:45:44 Doctor Unassigned, [place] [facility] CONSENT/REFUSAL FOR DIAGNOSIS AND TREATMENT 2022-09-25 03:44:56 Doctor Unassigned, [place] [facility] Encounters Start Date/Time End Date/Time Encounter Type Admission Type Attending [facility] Facility Care Department Encounter ID Source 2021-06-26 08:58:39 Emergency [facility] [id number] [facility] 2021-06-24 18:43:46 Outpatient LES HUGGINS [facility] [id number] [facility] 2024-09-30 14:42:00 2024-09-30 18:18:00 Emergency GERARD CRISTOBAL SHINTA [facility] ERT [id number] [facility] 2024-09-30 14:42:00 2024-09-30 18:18:00 Emergency Gerard Nobles [facility] 1.2.840.114 350.1.13.10 4.2.7.2.686 [id number] [facility] 2024-07-28 09:45:00 2024-07-28 09:45:00 Outpatient PHAN GARAY [facility] [id number] [facility] 2024-07-28 09:07:05 2024-07-28 09:07:05 Outpatient SFA STEPHANIE [id number] Marquis Hart 2024-05-29 16:19:00 2024-05-29 17:53:00 Emergency X Kristian TERRELL K [facility] ERT [id number] [facility] 2024-05-29 16:19:00 2024-05-29 17:53:00 Emergency Kristian Terrell [facility] 1.2.840.114 350.1.13.10 4.2.7.2.686 [id number] [facility] 2023-11-29 15:30:00 2023-11-29 15:30:00 Outpatient ALAN BAEZA [id number] Yady López 2023-10-26 21:57:00 2023-10-26 23:58:00 Emergency X GERARD NOBLES SHIN[facility] ERT [id number] [facility] 2023-10-26 21:57:00 2023-10-26 23:58:00 Emergency Gerard Nobles [facility] 1.2.840.114 350.1.13.10 4.2.7.2.686 [id number] [facility] 2023-10-16 15:53:57 2023-10-16 15:53:57 Outpatient SFA STEPHANIE [id number] Marquis Gill Tanner 2023-09-28 10:15:00 2023-09-28 10:15:00 Outpatient CATRACHITA PRATHER [facility] [id number] [facility] 2023-09-28 00:00:00 2023-09-28 00:00:00 Orders Only Doctor Unassigned, [place] [facility] 1.2840.114 350.1.13.10 4.2.7.2.686 [id number] [facility] 2023-09-20 22:18:00 2023-09-20 23:14:00 Emergency X ROBERTO GRIFFITH [facility] ERT [id number] [facility] 2023-09-20 22:18:00 2023-09-20 23:14:00 Emergency Roberto Griffith [facility] 1.840.114 350.1.13.10 4.2.7.2.686 [id number] [facility] 2023-07-16 18:45:00 2023-07-16 22:54:00 Emergency X ROBERTO GRIFFITH [facility] ERT [id number] [facility] 2023-07-16 18:45:00 2023-07-16 22:54:00 Emergency CasSandi simpson Donnell [facility] 1.840.114 350.1.13.10 4.2.7.2.686 [id number] [facility] 2023-07-03 14:00:00 2023-07-03 14:00:00 Outpatient R VIANEY GARCIA [facility] [id number] [facility] 2023-05-17 15:00:00 2023-05-17 15:24:56 Outpatient R FAROOQ DAVIS [facility] [id number] [facility] 2023-05-17 15:00:00 2023-05-17 15:20:00 Urgent Care Farooq Davis Unknown, Attending [facility] 1.840.114 350.1.13.10 4.2.7.2.686 [id number] [facility] 2023-03-27 13:30:00 2023-03-27 13:30:00 Outpatient R JOYCE LOPEZ [facility] [id number] [facility] 2023-03-13 00:00:00 2023-03-13 00:00:00 Telephone Joyce Lopez [facility] DATA EXAMINATION CLERK [facility] MATERNAL & CHILD [facility]ALTH [facility] 1..840.114 350.1.13.10 4.2.7.2.686 [id number] [facility] 2023-01-05 08:03:00 2023-01-05 09:46:00 Emergency X ROBERTO GRIFFITH [facility] ERT [id number] [facility] 2023-01-05 08:03:00 2023-01-05 09:46:00 Emergency Roberto Griffith [facility] 1.2840.114 350.1.13.10 4.2.7.2.686 [id number] [facility] 2022-12-27 11:00:00 2022-12-27 12:13:57 Outpatient JOYCE BARCENAS [facility] [id number] [facility] 2022-12-27 11:00:00 2022-12-27 12:13:57 Office Visit Joyce Lopez [facility] DATA EXAMINATION CLERK [facility] MATERNAL [facility]ILD [facility] 1.2840.114 350.1.13.10 4.2.7.2.686 [id number] [facility] 2022-12-27 00:00:00 2022-12-27 00:00:00 Orders Only Doctor Unassigned, [place] [facility] 1.2840.114 350.1.13.10 4.2.7.2.686 [id number] [facility] 2022-09-27 20:33:00 2022-09-27 21:45:00 Emergency X ALEXIS CAMPOS [facility] ERT [id number] [facility] 2022-09-27 20:33:00 2022-09-27 21:45:00 Emergency Alexis Campos S [facility] 1.20.114 350.1.13.10 4.2.7.2.686 [id number] [facility] 2022-09-27 10:15:00 2022-09-27 10:15:00 Outpatient ANNABELLE WISE [facility] [id number] [facility] 2022-09-24 21:55:00 2022-09-24 23:00:00 Emergency X BANDAR CASTILLO [facility] ERT [id number] [facility] 2022-09-24 21:55:00 2022-09-24 23:00:00 Emergency Bandar Castillo [facility] 1..114 350.1.13.10 4.2.7.2.686 [id number] [facility] 2022-01-06 09:56:00 2022-01-06 09:56:00 Outpatient Facundo Almanzar [facility] [id number] [facility] 2021-12-30 00:00:00 2021-12-30 00:00:00 Telephone Mayra Saavedra [facility] DATA EXAMINATION CLERK [facility] MATERNAL & CHILD [facility] 1..114 350.1.13.10 4.2.7.2.686 [id number] [facility] 2021-12-29 15:15:00 2021-12-29 15:46:42 Outpatient R MAYRA SAAVEDRA [facility] [id number] [facility] 2021-12-29 15:15:00 2021-12-29 15:46:42 Office Visit Mayra Saavedra [facility] DATA EXAMINATION CLERK [facility] & CHILD [facility] 1..114 350.1.13.10 4.2.7.2.686 [id number] [facility] 2021-12-29 00:00:00 2021-12-29 00:00:00 Orders Only Doctor Unassigned, [place] [facility] 1..114 350.1.13.10 4.2.7.2.686 [id number] [facility] 2021-12-22 09:45:00 2021-12-22 09:45:00 Outpatient RENETTA JULIEN [facility] [id number] [facility] 2021-12-22 09:45:00 2021-12-22 09:45:00 Outpatient RENETTA JULIEN [facility] [id number] [facility] 2021-12-14 15:00:00 2021-12-14 15:00:00 Outpatient Cecily VIANEY GARCIA [facility] [id number] [facility] 2021-12-08 08:53:50 2021-12-08 23:59:00 Outpatient RENETTA JULIEN [facility] [id number] [facility] 2021-12-08 08:45:00 2021-12-08 10:02:07 Outpatient RENETTA JULIEN [facility] [id number] [facility] 2021-12-08 08:45:00 2021-12-08 10:02:07 Outpatient Cecily COON [facility] [id number] [facility] 2021-12-08 08:45:00 2021-12-08 09:00:00 [facility] 1..840.114 350.1.13.10 4.2.7.2.686 [id number] [facility] 2021-12-01 14:15:00 2021-12-01 14:15:00 Outpatient RENETTA JULIEN [facility] [id number] [facility] 2021-12-01 14:15:00 2021-12-01 14:15:00 Outpatient RENETTA JULIEN [facility] [id number] [facility] 2021-11-29 09:15:00 2021-11-29 09:30:00 Fowl Blood Tester Visit 2, [facility] 1.2.840.114 350.1.13.10 4.2.7.2.686 [id number] [facility] 2021-11-29 09:15:00 2021-11-29 09:15:00 Outpatient ANNABELLE WISE [facility] [id number] [facility] 2021-11-29 09:15:00 2021-11-29 09:15:00 Outpatient ANNABELLE WISE [facility] [id number] [facility] 2021-11-29 08:30:00 2021-11-29 08:30:00 Office Visit Annabelle Jo [facility] 1..840.114 350.1.13.10 4.2.7.2.686 [id number] [facility] 2021-11-24 00:00:00 2021-11-24 00:00:00 Orders Only Doctor Unassigned, [place] [facility] 1..840.114 350.1.13.10 4.2.7.2.686 [id number] [facility] 2021-11-17 15:00:00 2021-11-17 15:00:00 Outpatient Cecily JO [facility] [id number] [facility] 2021-11-09 09:00:00 2021-11-09 09:00:00 [facility] [id number] [facility] 2021-09-21 15:30:00 2021-09-21 15:41:13 Nurse Visit Nurse, [facility] Vianey Garcia [facility] 1..840.114 350.1.13.10 4.2.7.2.686 [id number] [facility] 2021-09-21 15:30:00 2021-09-21 15:30:00 Outpatient VIANEY RUIZ [facility] [id number] [facility] 2021-09-13 15:30:00 2021-09-13 15:30:00 Outpatient Cecily GARCIA VIANEY [facility] [id number] [facility] 2021-08-03 15:30:00 2021-08-03 15:30:00 Outpatient R [facility] [id number] [facility] 2021-05-11 15:44:35 2021-05-11 16:44:44 Nurse Visit Nurse, [facility] Samanta Petty [facility] 1..840.114 350.1.13.10 4.2.7.2.686 [id number] [facility] 2021-05-11 08:00:00 2021-05-11 08:00:00 Outpatient R [facility] [id number] [facility] 2021-05-11 00:00:00 2021-05-11 00:00:00 Orders Only Doctor Unassigned, [place] [facility] 1..840.114 350.1.13.10 4.2.7.2.686 [id number] [facility] 2021-05-10 08:00:00 2021-05-10 08:00:00 Outpatient R [facility] [id number] [facility] 2021-05-03 15:00:00 2021-05-03 15:00:00 Outpatient R [facility] [id number] [facility] 2021-04-30 00:00:00 2021-04-30 00:00:00 Nurse Triage Lucrecia Williamson [facility] 1..840.114 350.1.13.10 4.2.7.2.686 [id number] [facility] 2021-03-18 15:30:00 2021-03-18 15:30:00 Outpatient R [facility] [id number] [facility] 2021-03-16 14:30:00 2021-03-16 14:30:00 Outpatient R [facility] [id number] [facility] 2021-03-16 00:00:00 2021-03-16 00:00:00 Telephone AdumVianey [facility] 1.2.840.114 350.1.13.10 4.2.7.2.686 [id number] [facility] 2021-02-25 10:15:00 2021-02-25 10:15:00 Outpatient RENETTA JULIEN [facility] [id number] [facility] 2021-02-17 15:00:00 2021-02-17 15:00:00 Outpatient RENETTA JULIEN [facility] [id number] [facility] 2021-02-11 10:00:00 2021-02-11 10:00:00 Outpatient Cecily COON RENETTA [facility] [id number] [facility] 2020-12-15 14:23:49 2020-12-15 14:38:49 Fowl Blood Tester Visit 2, [facility] Lab [facility]um[facility]ian[facility] 1.2.840.114 350.1.13.10 4.2.7.2.686 [id number] [facility] 2020-12-15 13:51:57 2020-12-15 14:18:57 Nurse Visit Nurse, [facility] AdVianey [facility] 1.2.840.114 350.1.13.10 4.2.7.2.686 [id number] [facility] 2020-12-15 14:00:00 2020-12-15 14:00:00 Outpatient R [facility]ET [facility] [id number] [facility] 2020-12-06 13:30:00 2020-12-06 13:30:00 Outpatient R [facility] [id number] [facility] 2020-11-20 17:26:00 2020-11-20 17:37:00 Emergency Belinda Hall [facility] 1.2.840.114 350.1.13.10 [id number] [facility] 2020-11-20 00:00:00 2020-11-20 00:00:00 Orders Only Doctor Unassigned, [place] [facility] [id number] [facility] 2020-11-16 00:00:00 2020-11-16 00:00:00 Case Management Vianey Garcia [facility] [id number] 134 [id number] [facility] 2020-11-09 13:35:56 2020-11-09 15:09:56 Office Visit Vianey Garcia [facility] Building 1.2.840.114 350.1.13.10 4.2.7.2.686 [id number] [facility] 2020-11-09 13:30:00 2020-11-09 13:30:00 Outpatient R VIANEY GARCIA [facility] [id number] [facility] 2020-11-08 15:45:00 2020-11-08 15:45:00 Outpatient R ANNABELLE JO [facility] [id number] [facility] 2020-11-05 15:00:00 2020-11-05 15:00:00 Outpatient R JASPREET [facility] [id number] [facility] 2020-11-04 14:30:00 2020-11-04 14:30:00 Outpatient R JASPREET [facility] [id number] [facility] 2020-11-02 00:00:00 2020-11-02 00:00:00 Telephone AdVianey teague [facility] Building 1.2.840.114 350.1.13.10 4.2.7.2.686 [id number] [facility] 2020-09-23 00:00:00 2020-09-23 00:00:00 Orders Only Doctor Unassigned, [place] [facility] 1.2.840.114 350.1.13.10 4.2.7.2.686 [id number] [facility] 2020-09-15 00:00:00 2020-09-15 00:00:00 Case Management Adum, Vianey Hernandez [facility] [place] [facility] 1.2.840.114 350.1.13.10 4.2.7.2.686 [id number] [facility] 2020-09-10 00:00:00 2020-09-10 00:00:00 Case Management Adum, Vianey Hernandez [facility] 1.2.840.114 350.1.13.10 4.2.7.2.686 [id number] [facility] 2020-09-09 10:14:30 2020-09-09 10:29:30 Fowl Blood Tester Visit 2, Adc Lab [place], [facility]ianey Hernandez [facility] 1.2.840.114 350.1.13.10 4.2.7.2.686 [id number] [facility] 2020-09-09 08:31:02 2020-09-09 09:58:53 Office Visit [place], Vianey Hernandez [facility] 1.2.840.114 350.1.13.10 4.2.7.2.686 [id number] [facility] 2020-09-09 09:00:00 2020-09-09 09:00:00 Outpatient R ADWOODROW VIANEY [facility] [id number] [facility] 2020-09-09 00:00:00 2020-09-09 00:00:00 Orders Only Doctor Unassigned, [place] [facility] 1.2.840.114 350.1.13.10 4.2.7.2.686 [id number] 009 [id number] [facility] 2020-06-15 00:00:00 2020-06-15 00:00:00 Orders Only Doctor Unassigned, [place] [facility] 1.2.840.114 350.1.13.10 4.2.7.2.686 [id number] [facility] 2020-06-07 15:12:17 2020-06-07 15:27:17 Office Visit Renetta Coon [facility] 1.0.114 350.1.13.10 4.2.7.2.686 [id number] [facility] 2020-06-07 15:00:00 2020-06-07 15:00:00 Outpatient R JAYMIE [facility] [id number] [facility] 2020-05-24 05:58:00 2020-05-24 09:24:00 Hospital Encounter Aguilar Les David [facility] [place] 1.114 350.1.13.10 4.2.7.2.686 [id number] [facility] 2020-05-22 13:24:32 2020-05-22 13:44:32 Laboratory Only Lab, Adc Fam Pob Jas[facility] Office Building One 1.114 350.1.13.10 4.2.7.2.686 [id number] [facility] 2020-05-22 13:20:00 2020-05-22 13:20:00 Outpatient Cecily [facility] [id number] [facility] 2020-05-21 11:00:00 2020-05-21 11:00:00 Outpatient PANKAJ MYERS [facility] [id number] [facility] 2020-05-17 00:00:00 2020-05-17 00:00:00 Prep For Surgery Les Huggins [facility] yamilex [place] 1.2.840.114 350.1.13.10 4.2.7.2.686 [id number] [facility] 2020-05-13 11:14:45 2020-05-13 11:39:37 Office Visit Renetta Coon Craig L [facility] yamilex [place] 1.2.840.114 350.1.13.10 4.2.7.2.686 [id number] [facility] 2020-05-13 11:00:00 2020-05-13 11:00:00 Outpatient R LES HUGGINS [facility] [id number] [facility] 2020-05-13 00:00:00 2020-05-13 00:00:00 Letter (Out) Jaymie [facility] yamilex [place] 1.2.840.114 350.1.13.10 4.2.7.2.686 [id number] [facility] 2020-05-13 00:00:00 2020-05-13 00:00:00 Letter (Out) JaymieRenetta [facility] yamilex [place] 1.2.840.114 350.1.13.10 4.2.7.2.686 [id number] [facility] 2020-05-05 15:15:00 2020-05-05 23:59:00 Hospital Encounter Les Huggins [facility] 1.2.840.114 350.1.13.10 4.2.7.2.686 [id number] [facility] 2020-05-05 00:00:00 2020-05-05 00:00:00 Outpatient R LES HUGGINS [facility] [id number] [facility] 2020-04-15 00:00:00 2020-04-15 00:00:00 Orders Only Doctor Unassigned, [place] [facility] 1.2.840.114 350.1.13.10 4.2.7.2.686 [id number] [facility] 2020-04-08 00:00:00 2020-04-08 00:00:00 Telephone AguilarRonnellhanane Hernandez [facility] [place] 1.2.840.114 350.1.13.10 4.2.7.2.686 [id number] [facility] 2020-04-05 14:45:57 2020-04-05 15:00:57 Office Visit Renetta Coon [facility] [place] 1.2.840.114 350.1.13.10 4.2.7.2.686 [id number] [facility] 2020-04-05 15:00:00 2020-04-05 15:00:00 Outpatient Cecily COON RENETTA [facility] [id number] [facility] 2020-04-01 14:00:00 2020-04-01 14:00:00 Outpatient RENETTA JULIEN [facility] [id number] [facility] 2020 11:37:49 2020 13:13:00 Emergency Mariaa Rae [facility] 1.2.840.114 350.1.13.10 4.2.7.2.686 [id number] [facility] 2020 11:37:49 2020 13:13:00 Emergency X MARIAA RAE [facility] ERT [id number] [facility] Results Test Description Test Time Test Comments Results Result Co mments Source [facility] [id number] 21:20:00* Test Item Value Reference Range Interpretation Comme nts POCT PREG (test code = 1605) Negative On board controls acceptable with C Line (test code = 3574) Yes POCT PREG LOT # (test code = 4725) [id number] POCT PREG TEST DATE ( test code = 3576) 08/04/2025 Lab Interpretation (test cod e = 82998-6) Normal [facility], [id number] 04:54:53* Test Item Value Reference Range Interpretation Comme nts PREG SERUM (test code = 7792668540) Negative ZORAIDA (test code = ZORAIDA) Less than 10 IU/L. ?If low titer or ectopic is suspected, resubmit specimen in 48-72 hours. [facility]. Metabolic Panel (54651)2023-10-27 04:49:57* Test Item Value Reference Range Interpretation Comme nts NA (test code = 2108423896) 139 mmol/L 135-145 K (test code = 2421780463) 4.0 mmol/L 3.5-5.0 CL (test code = 9200640099) 108 mmol/L 98-108 CO2 TOTAL (test code = 7621362741) 25 mmol/L 23-31 AGAP (test code = 6818503140) 6 2-16 BUN (test code = 9657561010) 14 mg/dL 7-23 GLUCOSE (test code = 6889942140) 97 mg/dL 70-110 CREATININE (test code = 2160-0) 0.56 mg/dL 0.50-1.04 TOTAL BILI (test code = 9508307816) 0.7 mg/dL 0.1-1.1 CALCIUM (test code = 4838394567) 8.8 mg/dL 8.6-10.6 T PROTEIN (test code = 7925816145) 8.4 g/dL 6.3-8.2 H ALBUMIN (test code = 8544829102) 4.1 g/dL 3.5-5.0 ALK PHOS (test code = 0581801079) 65 U/L 34-122 ALTv (test code = 1742-6) 21 U/L 5-35 AST(SGOT) (test code = 2362542124) 37 U/L 13-40 eGFR (test code = 03587-3) 134.2 mL/min/1.73m2 CKD-EPI eGFR (2020). Assuming creatinine has been stable day-to-day for at least three months, the eGFR indicates Category G1 (>= 90 mL/min/1.73 m2) Lab Interpretation (test code = 08376-8) Abnormal [facility] with [id number] 04:36:34* Test Item Value Reference Range Interpretation [...] 33.6 g/dL 31.6-35.1 RDW-SD (test code = 41979-6) 43.0 fL 39.0-49.9 RDW-CV (test code = 788-0) 13.5 % 12.0-15.5 PLT (test code = 777-3) 241 166-358 MPV (test code = 07246-6) 12.1 fL 9.5-12.9 NRBC/100 WBC (test code = 2106601631) 0.0 0.0-10.0 NRBC x10^3 (test code = 3183757252) See_Comment [Automated messa ge] The system which generated this result transmitted reference range: 10*3/?L. The reference range was not used to interpret this result as normal/abnormal. GRAN MAT (NEUT) % (test code = 770-8) 67.8 % IMM GRAN % (test code = 6651887641) 0.60 % LYMPH % (test code = 736-9) 21.2 % MONO % (test code = 5905-5) 8.9 % EOS % (test code = 713-8) 1.0 % BASO % (test code = 706-2) 0.5 % GRAN MAT x10^3(ANC) (test code = 1466338416) 8.58 10*3/uL 1.88-7.09 H IMM GRAN x10^3 (test code = 7309647705) 0.07 10*3/uL 0.00-0.06 H LYMPH x10^3 (test code = 731-0) 2.67 10*3/uL 1.32-3.29 MONO x10^3 (test code = 742-7) 1.12 10*3/uL 0.33-0.92 H EOS x10^3 (test code = 711-2) 0.12 10*3/uL 0.03-0.39 BASO x10^3 (test code = 704-7) 0.06 10*3/uL 0.01-0.07 Lab Interpretation (test code = 29603-0) Abnormal [facility] [id number] 04:27:00* Test Item Value Reference Range Interpretation Comme nts POCT PREG (test code = 1605) Negative On board controls acceptable with C Line (test code = 3574) Yes POCT PREG LOT # (test code = 3575) [id number] POCT PREG TEST DATE ( test code = 3576) 10-01-2024 Lab Interpretation (test cod e = 16957-0) Normal [facility]. MET[facility]OLIC PANEL (31043)2023-07-17 02:17:29* Test Item Value Reference Range Interpretation Comme nts NA (test code = 3112943743) 140 mmol/L 135-145 K (test code = 0312386856) 3.9 mmol/L 3.5-5.0 CL (test code = 2734381150) 103 mmol/L 98-108 CO2 TOTAL (test code = 9741133248) 29 mmol/L 23-31 AGAP (test code = 4561974809) 8 2-16 BUN (test code = 3755065249) 10 mg/dL 7-23 GLUCOSE (test code = 6104110510) 95 mg/dL 70-110 CREATININE (test code = 0743547772) 0.84 mg/dL 0.50-1.04 TOTAL BILI (test code = 6728154712) 0.3 mg/dL 0.1-1.1 CALCIUM (test code = 0180896495) 9.1 mg/dL 8.6-10.6 T PROTEIN (test code = 9033046838) 8.4 g/dL 6.3-8.2 H ALBUMIN (test code = 0914705023) 4.5 g/dL 3.5-5.0 ALK PHOS (test code = 7398290859) 80 U/L 34-122 ALTv (test code = 1742-6) 16 U/L 5-35 AST(SGOT) (test code = 2810181647) 22 U/L 13-40 eGFR (test code = 78750-9) 102.2 mL/min/1.73m2 CKD-EPI eGFR (2020). Assuming creatinine has been stable day-to-day for at least three months, the eGFR indicates Category G1 (>= 90 mL/min/1.73 m2) Lab Interpretation (test code = 79036-0) Abnormal [facility] WITH [id number] 02:15:48* Test Item Value Reference Range Interpretation Comme nts WBC (test code = 6690-2) 11.54 See_Comment H [Automated [employer]] The system which generated this result transmitted reference range: 4.30 - 11.10 10*3/?L. The reference range was not used to interpret this result as normal/abnormal. RBC (test code = 789-8) 4.87 See_Comment [Automated [employer]] The system which generated this result transmitted [...] 33.3 g/dL 31.6-35.1 RDW-SD (test code = 10933-3) 42.6 fL 39.0-49.9 RDW-CV (test code = 788-0) 13.2 % 12.0-15.5 PLT (test code = 777-3) 277 See_Comment [Automated messa ge] The system which generated this result transmitted reference range: 166 - 358 10*3/?L. The reference range was not used to interpret this result as normal/abnormal. MPV (test code = 28827-5) 10.5 fL 9.5-12.9 NRBC/100 WBC (test code = 1619070027) 0.0 See_Comment [Automated [employer] ssage] The system which generated this result transmitted reference range: 0.0 - 10.0 /100 WBCs. The reference range was not used to interpret this result as normal/abnormal. NRBC x10^3 (test code = 6928103137) See_Comment [Automated messa ge] The system which generated this result transmitted reference range: 10*3/?L. The reference range was not used to interpret this result as normal/abnormal. GRAN MAT (NEUT) % (test code = 770-8) 60.3 % IMM GRAN % (test code = 2275932381) 0.30 % LYMPH % (test code = 736-9) 25.9 % MONO % (test code = 5905-5) 10.8 % EOS % (test code = 713-8) 2.0 % BASO % (test code = 706-2) 0.7 % GRAN MAT x10^3(ANC) (test code = 9916544226) 6.95 10*3/uL 1.88-7.09 IMM GRAN x10^3 (test code = 0763482961) 0.04 10*3/uL 0.00-0.06 LYMPH x10^3 (test code = 731-0) 2.99 10*3/uL 1.32-3.29 MONO x10^3 (test code = 742-7) 1.25 10*3/uL 0.33-0.92 H EOS x10^3 (test code = 711-2) 0.23 10*3/uL 0.03-0.39 BASO x10^3 (test code = 704-7) 0.08 10*3/uL 0.01-0.07 H Lab Interpretation (test code = 69749-8) Abnormal [facility] [id number] 01:53:00* Test Item Value Reference Range Interpretation Comme nts POCT PREG (test code = 1605) Negative On board controls acceptable with C Line (test code = 3574) Yes POCT PREG LOT # (test code = 3575) [id number] POCT PREG TEST DATE ( test code = 3576) 2024-11-29 Lab Interpretation (test cod e = 77492-6) Normal [facility] [id number] 20:06:00* Test Item Value Reference Range Interpretation Comme nts POCT PREG (test code = 1605) Negative On board controls acceptable with C Line (test code = 3574) Yes POCT PREG LOT # (test code = 3575) POCT PREG TEST DATE ( test code = 3576) [facility] URINALYSIS W SPECIFIC [id number] 20:01:00* Test Item Value Reference Range Interpretation [...] U APPEAR (test code = 3267) cloudy [facility] Center[facility] SCREEN (ANGELIC) [id number] 19:07:18 * Test Item Value Reference Range Interpretation Comme [facility] Rubella screen IgG (test code = 7642945703) Positive Negative ZORAIDA (test code = ZORAIDA) Positive - Indicat es the patient was exposed to Rubella through infection or vaccination.Negative - Indicates the patient could be susceptible to Rubella infection.Equivocal - A second specimen should be sent. [facility] Center[facility] SCREEN (ANGELIC) [id number] 19:07:18 * Test Item Value Reference Range Interpretation Comme [facility] Rubella screen IgG (test code = 6220676500) Positive Negative ZORAIDA (test code = ZORAIDA) Positive - Indicat es the patient was exposed to Rubella through infection or vaccination.Negative - Indicates the patient could be susceptible to Rubella infection.Equivocal - A second specimen should be sent. [facility] ONLY - SYPHILIS [id number] 17:26:01* Test Item Value Reference Range Interpretation Comme nts Syphilis IgG/IgM (test code = 98832-1) Non-reactive Non-reactive ZORAIDA (test code = ZORAIDA) Non-reactive - No serologic evidence of T. pallidum infection. Cannot exclude incubating or early syphilis. Submit a second specimen in 2-4 weeks if syphilis is clinically suspected. Equivocal - Further testing to follow. Reactive - Further testing to follow. Lab Interpretation (test code = 54875-0) Normal [facility] ONLY - SYPHILIS [id number] 17:26:01* Test Item Value Reference Range Interpretation Comme nts Syphilis IgG/IgM (test code = 70570-0) Non-reactive Non-reactive ZORAIDA (test code = ZORAIDA) Non-reactive - No serologic evidence of T. pallidum infection. Cannot exclude incubating or early syphilis. Submit a second specimen in 2-4 weeks if syphilis is clinically suspected. Equivocal - Further testing to follow. Reactive - Further testing to follow. Lab Interpretation (test code = 28026-5) Normal [facility] CenterGLYCOSYLATED HEMOGLOBIN (A1C)2022-12-28 15:57:54* Test Item Value Reference Range Interpretation Comme nts HGB A1C (test code = 4548-4) 5.5 % 4.0-5.7 ZORAIDA (test code = ZORAIDA) Reference RangesNormal: <5.7%Prediabetes: 5.7 - 6.4%Diabetes: > 6.5% Lab Interpretation (test code = 64211-1) Normal [facility] CenterGLYCOSYLATED HEMOGLOBIN (A1C)2022-12-28 15:57:54* Test Item Value Reference Range Interpretation Comme nts HGB A1C (test code = 4548-4) 5.5 % 4.0-5.7 ZORAIDA (test code = ZORAIDA) Reference RangesNormal: <5.7%Prediabetes: 5.7 - 6.4%Diabetes: > 6.5% Lab Interpretation (test code = 75349-6) Normal [facility] 1/2 AG-AB WITH [id number] 12:20:58* Test Item Value Reference Range Interpretation Comme nts HIV Semi-quantitative (test code = 62834-6) 0.07 Negative ZORAIDA (test code = ZORAIDA) Non-reactive for HIV-1 antigen and HIV-1/HIV-2 antibodies. ?No laboratory evidence of HIV infection. ?Repeat in 2-4 weeks if acute HIV infection is suspected. [facility] 1/2 AG-AB WITH [id number] 12:20:58* Test Item Value Reference Range Interpretation Comme [facility] HIV Semi-quantitative (test code = 06546-4) 0.07 Negative ZORAIDA (test code = ZORAIDA) Non-reactive for HIV-1 antigen and HIV-1/HIV-2 antibodies. ?No laboratory evidence of HIV infection. ?Repeat in 2-4 weeks if acute HIV infection is suspected. [facility] Center[facility] [id number] 09:03:31* Test Item Value Reference Range Interpretation Comme [facility] HCV Ab (test code = 61413-3) Negative HCV Semi-Quantitative (test code = 53473-2) 0.02 [facility] [id number] 09:03:31* Test Item Value Reference Range Interpretation Comme [facility] HCV Ab (test code = 14237-8) Negative HCV Semi-Quantitative (test code = 30183-2) 0.02 [facility] CenterTHYROID STIMULATING [id number] 08:28:04 * Test Item Value Reference Range Interpretation Comme [facility] TSH (test code = 8251035272) 0.99 See_Comment [Automated [employer]] The system which generated this result transmitted reference range: 0.45 - 4.70 mIU/L. The reference range was not used to interpret this result as normal/abnormal. Lab Interpretation (test code = 96150-0) Normal [facility] CenterTHYROID STIMULATING [id number] 08:28:04 * Test Item Value Reference Range Interpretation Comme nts TSH (test code = 0769512239) 0.99 See_Comment [Automated messa ge] The system which generated this result transmitted reference range: 0.45 - 4.70 mIU/L. The reference range was not used to interpret this result as normal/abnormal. Lab Interpretation (test code = 64127-2) Normal [facility] WITH [id number] 07:54:04* Test Item Value Reference Range Interpretation [...] 32.7 g/dL 31.6-35.1 RDW-SD (test code = 63516-9) 42.5 fL 39.0-49.9 RDW-CV (test code = 788-0) 13.0 % 12.0-15.5 PLT (test code = 777-3) 232 See_Comment [Automated messa ge] The system which generated this result transmitted reference range: 166 - 358 10*3/?L. The reference range was not used to interpret this result as normal/abnormal. MPV (test code = 81277-2) 11.5 fL 9.5-12.9 NRBC/100 WBC (test code = 7370492329) 0.0 See_Comment [Automated [employer] ssage] The system which generated this result transmitted reference range: 0.0 - 10.0 /100 WBCs. The reference range was not used to interpret this result as normal/abnormal. NRBC x10^3 (test code = 0303087720) See_Comment [Automated messa ge] The system which generated this result transmitted reference range: 10*3/?L. The reference range was not used to interpret this result as normal/abnormal. GRAN MAT (NEUT) % (test code = 770-8) 57.6 % IMM GRAN % (test code = 6013495945) 0.20 % LYMPH % (test code = 736-9) 29.9 % MONO % (test code = 5905-5) 8.6 % EOS % (test code = 713-8) 2.7 % BASO % (test code = 706-2) 1.0 % GRAN MAT x10^3(ANC) (test code = 6738005695) 5.43 10*3/uL 1.88-7.09 IMM GRAN x10^3 (test code = 2300167041) 0.00-0.06 LYMPH x10^3 (test code = 731-0) 2.81 10*3/uL 1.32-3.29 MONO x10^3 (test code = 742-7) 0.81 10*3/uL 0.33-0.92 EOS x10^3 (test code = 711-2) 0.25 10*3/uL 0.03-0.39 BASO x10^3 (test code = 704-7) 0.09 10*3/uL 0.01-0.07 H Lab Interpretation (test code = 76774-0) Abnormal [facility] WITH [id number] 07:54:04* Test Item Value Reference Range Interpretation [...] 32.7 g/dL 31.6-35.1 RDW-SD (test code = 13756-0) 42.5 fL 39.0-49.9 RDW-CV (test code = 788-0) 13.0 % 12.0-15.5 PLT (test code = 777-3) 232 See_Comment [Automated messa ge] The system which generated this result transmitted reference range: 166 - 358 10*3/?L. The reference range was not used to interpret this result as normal/abnormal. MPV (test code = 19767-6) 11.5 fL 9.5-12.9 NRBC/100 WBC (test code = 2282671431) 0.0 See_Comment [Automated [employer] ssage] The system which generated this result transmitted reference range: 0.0 - 10.0 /100 WBCs. The reference range was not used to interpret this result as normal/abnormal. NRBC x10^3 (test code = 4706912535) See_Comment [Automated messa ge] The system which generated this result transmitted reference range: 10*3/?L. The reference range was not used to interpret this result as normal/abnormal. GRAN MAT (NEUT) % (test code = 770-8) 57.6 % IMM GRAN % (test code = 7434010289) 0.20 % LYMPH % (test code = 736-9) 29.9 % MONO % (test code = 5905-5) 8.6 % EOS % (test code = 713-8) 2.7 % BASO % (test code = 706-2) 1.0 % GRAN MAT x10^3(ANC) (test code = 1057205190) 5.43 10*3/uL 1.88-7.09 IMM GRAN x10^3 (test code = 0217199263) 0.00-0.06 LYMPH x10^3 (test code = 731-0) 2.81 10*3/uL 1.32-3.29 MONO x10^3 (test code = 742-7) 0.81 10*3/uL 0.33-0.92 EOS x10^3 (test code = 711-2) 0.25 10*3/uL 0.03-0.39 BASO x10^3 (test code = 704-7) 0.09 10*3/uL 0.01-0.07 H Lab Interpretation (test code = 34178-5) Abnormal [facility] [id number] 16:47:00* Test Item Value Reference Range Interpretation Comme nts POCT PREG (test code = 1605) Negative On board controls acceptable with C Line (test code = 3574) Yes POCT PREG LOT # (test code = 3575) POCT PREG TEST DATE ( test code = 3576) [facility] [id number] 16:47:00* Test Item Value Reference Range Interpretation Comme nts POCT PREG (test code = 1605) Negative On board controls acceptable with C Line (test code = 3574) Yes POCT PREG LOT # (test code = 3575) POCT PREG TEST DATE ( test code = 3576) [facility] [id number] 04:35:00* Test Item Value Reference Range Interpretation Comme nts POCT PREG (test code = 1605) negative On board controls acceptable with C Line (test code = 3574) present POCT PREG LOT # (test code = 3575) [id number] POCT PREG TEST DATE ( test code = 3576) 2023-11-25 Lab Interpretation (test cod e = 69012-9) Normal [facility] CenterS[facility]ICAL2022-[facility]-24 12:21:00* Test Item Value Reference Range Interpretation Comme nts SURGICAL (test code = SR) R UN DATE: 01/17/22 [facility] PAGE 1 RUN TIME: 1221 Specimen Inquiry RUN USER: INTERFACE P ATIENT: ANAKATRIN LOC: ARIELA U #: [id number] AGE/SX: 16/F ROOM: RE01/06/22[facility]: Facundo Kwon MD : 03 BED: DIS: [place] [facility]: SPEC #: [id number] RECD: 01/09/22 STATUS: JORDAN LEAVITT #: [id number] KI: 01/06/22-[address] [facility] [address]: Facundo Kwon MD ENTERED: 01/09/22 SP TYPE: SURGICAL OTHR DR: DOES_NOT KNOW ORDERED: 93335/2, 16770, ANATOMIC SPEC COPIES TO: DOES_NOT KNOW Facundo Kwon MD [address] [place] [address] PROCEDURES: 52241 (01/09/22-715) 10243 (01/10/22-1630) TISSUES: A. DUODENUM BIOPSY B. STOMACH [...] ON NEXT PAGE R UN DATE: 01/17/22 [facility] PAGE 2 RUN TIME: 1221 Specimen Inquiry RUN USER: INTERFACE S PEC #: [id number] PATIENT: KATRIN PEREZ #[id number] (Continued) GROSS DESCRIPTION (Continued) Technical component excluding immunohistochemistry is performed at [facility], [address], [place] [address] Technical component of all immunohistochemistry is performed at [facility], [address], [address], [place] [address] Immunohistochemistry: This test was developed and its [...] 01/17/22 1221 END OF REPORT UR HCG [id number] 12:02:00* Test Item Value Reference Range Interpretation Comme nts UR HCG QUAL (test code = HCGQLU) NEGATIVE This HCGQL test is NOT applicable for MALE patients.Check with nurse about probable order error.If Tumor Marker Test needed, nurse should order test "HCGTU"(Test #[id number]) Notes Date/Time Note Provider Source 2024-09-30 18:14:02 Patient eloped from [facility]. LATION AND FLOORING ASSEMBLER Joe Srinivasan RN [facility] 2024-09-30 14:37:43 Pt arrived ambulatory suprapubic pain, and breast pain since 09/08/2024, frequent urination, nausea. LMP 09/03/2024. LATION AND FLOORING ASSEMBLER Lynda Laird RN [facility] 2024-05-29 17:41:00 Not in lobby Lynda Mejia RN [facility] 2024-05-29 17:38:00 Not in [facility] to discharge [facility] 2024-05-29 16:16:33 Summary: Triage CC: Patient vomited this morning and is late on her period, patient is here for a test PMHx: none PSH:none MEDS:none LMP: 04/19/24 Tetanus: UTD Awake, alert, oriented, resp reg unlabored, skin warm, color appropriate for race, moves all ext without difficulty, amb with out assistance Appears in no distress Shu Singh RN [facility] 2023-10-26 23:53:53 Pt discharged home following ERP eval. Pt given all education and information regarding s/s of worsening condition, the importance of follow up and prescription use and purpose. Pt verbalized understanding. Alert and ambulatory to pov with family. Romero RN [facility] 2023-10-26 21:57:03 Pt given urine cup and placed in the lobby, pt advice to notify nurse with any other concerns or if symptoms worsen. [employer]ATION AND FLOORING ASSEMBLER [facility] 2023-10-26 21:53:04 Vaginal bleeding that started today with clots, pt states that she has used 4 pads. Pt c/o lower pelvic and lower back pain. Pt states LMP: 10/13/2023 Nassar RN [facility] 2023-09-20 23:01:05 Pt given printed and [...] gait, in no apparent distress Leger RN [facility] 2023-09-20 22:13:39 Pt arrives ambulatory to ED reporting that her lymph nodes are swollen and has been since she was here last time. After review pt was seen here 07/16/2023. She also wanted to be checked for all STD's. LATION AND FLOORING ASSEMBLER Heidi Hall RN [facility] 2022-01-06 15:10:00 [facility] ([facility]) Post Anesthesia Evaluation REPORT#:[id number] REPORT STATUS: Signed DATE:01/06/22 TIME: 1510 PATIENT: KATRIN PEREZ UNIT #: [id number] ROOM/BED: : 03 AGE: 16 SEX: F [...] Temp 36.7 01/06 1413 Pulse 87 01/06 1413 Resp 16 01/06 1413 Cardiovascular: CV system stable, vital signs stable Respiratory/Airway: respiratory system stable, maintains without support Pain: adequately controlled Hydration: adequate, euvolemic Temp status: greater than 96.8F, normothermic Presence of N/V: no Anesthesia complications: no Other changes requiring f/u: none Conclusions: no apparent anes. issues, outpts eval prior DC home at 1511 RPT #:[id number] END OF REPORT [facility] 2022-01-06 13:42:00 [id number] [facility] PATIENT NAME: KATRIN PEREZ ADMIT DATE: 01/06/22 ACCOUNT NO: [id number] ROOM NO: AGE: 16 REPORT TYPE: ENDOSCOPY [...] 1:42 PM Procedure Code(s): --- Professional --- 81720, Esophagogastroduodenoscopy, flexible, transoral; with biopsy, single or multiple Diagnosis Code(s): --- Professional --- K29.80, Duodenitis without bleeding R10.13, Epigastric pain K30, Functional dyspepsia CPT copyright 2020 [employer]. All rights reserved. The codes documented in this report are preliminary and upon coder operator review may be revised to meet current compliance requirements. Scope In: Scope Out: Provation {[id number]}. pdf ProVation FT PDF PATIENT NAME: KATRIN PEREZ at 1359 PATIENT NAME: KATRIN PEREZ [facility]
[2024-11-26] MEDS ORDERED: LIDOCAINE VISCOUS 2% 10ML ORAL SOLN ONE (17:58)
--- NOTE | 2024-11-26 18:24 | EDPHYS ---
Physician Documentation [facility] Name: Lizzie Chase Age: 19 yrs Sex: Female : 2005 Arrival Date: 11/26/2024 Time: 17:37 Bed Treatment Private MD: ED Physician Paul Gonzalez HPI: 11/26 21:57 This 19 yrs old Female presents to ER via Ambulatory with complaints of kb Swelling Of Tongue - piercing. 21:57 Patient is a 19-year-old female who presents for tongue swelling around piercing. kb States she got her tongue pierced 2 weeks ago and she has had pain and swelling around the piercing. Denies fever.. 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 - Infectious Disease History:: Denies. - Social history:: Smoking status: Patient reports the use of cigarette tobacco products, cigars. ROS: 21:51 Constitutional: As per HPI kb Exam: 21:51 Constitutional: This is a well developed, well nourished patient who is awake, alert, kb and in no acute distress. Head/Face: Normocephalic, atraumatic. Cardiovascular: Regular rate Respiratory: Respirations even and unlabored. No increased work of breathing. Talking in full sentences Skin: Warm, dry with normal turgor. Normal color. MS/ Extremity: Pulses equal, no cyanosis. Neurovascular intact. Full, normal range of motion. Neuro: Awake and alert, GCS 15, oriented to person, place, time, and situation. 21:51 ENT: Mouth: Tongue: is swollen, tip of tongue swollen around jewelry, Vital Signs: 17:46 BP 120 / 65; Pulse 99; Resp 16; Temp 98.1; Pulse Ox 100% on R/A; Weight 81.65 kg; iw Height 5 ft. 0 in. ; Pain 10/10; 17:46 Body Mass Index 35.15 (81.65 kg, 152.4 cm) iw 17:46 Pain Scale: Adult iw MDM: 17:45 Medical Screening Exam initiated kb 21:55 Differential diagnosis: infection, allergic reaction to jewelry. Data reviewed: vital kb signs, nurses notes. Counseling: I had a detailed discussion with the patient and/or guardian regarding the historical points, exam findings, and any diagnostic results supporting the discharge/admit diagnosis, the need for outpatient follow up, a family practitioner, to return to the emergency department if symptoms worsen or persist or if there are any questions or concerns that arise at home. ED course: I attempted to remove jewelry from tongue by unscrewing one ball, but pt was unable to tolerate the procedure. Viscous lidocaine applied to tongue, pt reported resolution of symptoms and was able to unscrew ball and remove jewelry herself. Reports resolution of pain after removal. Educated on use of listerine multiple times per day to prevent infection. No erythema or drainage noted. . Administered Medications: 18:39 Drug: Viscous Lidocaine Mucous Membrane Liquid (4 %) 5 ml Mucous Membrane once Route: iw Mucous Membrane; Disposition: 11/27 07:45 Co-signature as Attending Physician, Paul Gonzalez MD I reviewed the patient's care rn provided by the Advanced Practice Provider and agree with the diagnosis and treatment plan. Disposition Summary: 11/26/24 18:24 Discharge Ordered Notes: Location: Home kb Condition: Stable kb Diagnosis - Foreign body in tongue - piercing kb Followup: kb - With: Emergency Department - When: As needed - Reason: Worsening of condition Followup: kb - With: Private Physician - When: 2 - 3 days - Reason: Recheck today's complaints, Continuance of care, Re-evaluation by your physician Forms: - Medication Reconciliation Form kb - Antibiotic Education kb - Prescription Opioid Use kb - Patient Portal Instructions kb - Leadership Thank You Letter kb Signatures: Preethi Corbin FNP-C FNP-Clarisse Caldwell RN RN iw Paul Gonzalez MD MD rn
--- NOTE | 2024-11-26 18:24 | ER ---
Nurse's Notes [facility] Name: Lizzie Chase Age: 19 yrs Sex: Female : 2005 Arrival Date: 11/26/2024 Time: 17:37 Bed Treatment Private MD: Diagnosis: Foreign body in tongue - piercing Presentation: 11/26 17:46 Chief complaint: Patient states: got a piercing in her tongue about 2-3 weeks ago , it iw is painful and draining. Coronavirus screen: At this time, the client does not indicate any symptoms associated with coronavirus-19. Ebola Screen: No symptoms or risks identified at this time. Initial Sepsis Screen: Does the patient meet any 2 criteria? No. Patient's initial sepsis screen is negative. Does the patient have a suspected source of infection? No. Patient's initial sepsis screen is negative. Risk Assessment: Do you want to hurt yourself or someone else? Patient reports no desire to harm self or others. Onset of symptoms was November 25, 2024. 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 - Infectious Disease History:: Denies. - Social history:: Smoking status: Patient reports the use of cigarette tobacco products, cigars. Screenin:[facility] ED Fall Risk Assessment (Adult) History of falling in the last 3 months, kc6 including since admission No falls in past 3 months (0 pts) Confusion or Disorientation No (0 pts) Intoxicated or Sedated No (0 pts) Impaired Gait No (0 pts) Mobility Assist Device Used No (0 pt) Altered Elimination No (0 pt) Score/Fall Risk Level 0 - 2 = Low Risk Oriented to surroundings, Maintained a safe environment, Educated pt \T\ family on fall prevention, incl call for assistance when getting out of bed. Abuse screen: Denies threats or abuse. Denies injuries from another. Nutritional screening: No deficits noted. Tuberculosis screening: No symptoms or risk factors identified. Assessment: 18:01 General: Appears in no apparent distress. comfortable, well groomed, well developed, kc6 Behavior is calm, cooperative, appropriate for age. Pain: Complains of pain in tongue. Neuro: Level of Consciousness is awake, alert, obeys commands, Oriented to person, place, time, situation, Appropriate for age. Respiratory: Airway is patent Trachea midline Respiratory effort is even, unlabored, Respiratory pattern is regular, symmetrical. Derm: No signs and/or symptoms reported regarding the dermatologic system. Skin is intact, is healthy with good turgor, Skin is pink, warm \T\ dry. Musculoskeletal: Swelling present in tongue. Vital Signs: 17:46 BP 120 / 65; Pulse 99; Resp 16; Temp 98.1; Pulse Ox 100% on R/A; Weight 81.65 kg; iw Height 5 ft. 0 in. ; Pain 10/10; 17:46 Body Mass Index 35.15 (81.65 kg, 152.4 cm) iw 17:46 Pain Scale: Adult iw ED Course: 17:41 Patient arrived in ED. im 17:45 Preethi Corbin, JUDY is PHCP. kb 17:45 Paul Gonzalez MD is Attending Physician. kb 17:47 Triage completed. iw 17:59 Clarisse Shaffer, RN is Primary Nurse. iw 18:01 Patient has correct armband on for positive identification. Bed in low position. Call kc6 light in reach. Side rails up X 1. Adult w/ patient. Pulse ox on. NIBP on. Door closed. Noise minimized. Lights dimmed. Pillow given. Verbal reassurance given. 18:01 Arm band placed on. kc6 18:40 No provider procedures requiring assistance completed. Patient did not have IV access kc6 during this emergency room visit. Patient maintains SpO2 saturation greater than 95% on room air. Administered Medications: 18:39 Drug: Viscous Lidocaine Mucous Membrane Liquid (4 %) 5 ml Mucous Membrane once Route: iw Mucous Membrane; Medication: 18:41 VIS not applicable for this client. kc6 Outcome: 18:24 Discharge ordered by . kb 18:41 Discharged to home ambulatory, with friend, kc6 18:41 Condition: improved 18:41 Discharge instructions given to patient, Instructed on discharge instructions, follow up and referral plans. Demonstrated understanding of instructions, follow-up care, 18:41 Patient left the ED. kc6 Signatures: Preethi Corbin FNP-C FNP-Clarisse Caldwell RN RN iw Charu Mccartney RN RN kc6 Mariah Napier Corrections: (The following items were deleted from the chart) 17:48 17:46 BP 120 / 65; Pulse 99bpm; Resp 16bpm; Pulse Ox 100% RA; Temp 98.1F; 81.65 kg; iw Height 5 ft. 0 in.; BMI: 35.1; iw
[2024-11-26 19:16] VITALS: BP 120/65; TEMP 98.1; O2SAT 100
== END 2024-11-26 18:41 | disposition home or self-care (01) ==
LOC: ER 17:37
DX: T18.0XXA Foreign body in mouth, initial encounter (principal)
CPT/HCPCS: 99283

== ENCOUNTER 2024-12-30 07:03 | Emergency (ER) | payer SELFPAY ==
--- OUTSIDE RECORDS SUMMARY | 2024-12-30 07:08 | XMS REPORT | Continuity of Care Document ---
Author Name Unknown Address [address] [facility] [address] [place] [address] Organization [facility] [place] Address [address] [facility] [place] [address] Care Team Providers Care Aquatic Biologist Name Role Phone Maxwell Cisseald Sharri Primary Care Physician + [phone] LES HUGGINS Attending Clinician UnavailGERARD Ngo Attending Clinician Unavailable GERARD NOBLES Attending Clinician Unavailable Gerard Suazo Attending Clinician [phone] PHAN RICHARDSON Attending Clinician Unavailable Kristian TERRELL Attending Clinician Unavailable Kristian TERRELL Attending Clinician Unavailable Kristian Denney Attending Clinician [phone] ALAN BAEZA Attending Clinician Unavailable CATRACHITA NGUYEN Attending Clinician Unavail able Doctor Unassigned, Nenana Attending Clinician U ROBERTO Alegria Attending Clinician Unavailable Roberto Griffith MD Attending Clinician [phone] Sandi Cardozo NP Attending Clinician [phone] VIANEY GARCIA Attending Clinician Unavailable FAROOQ DAVIS Attending Clinician Unavailable Ebrahim INTERNAL CONTROL ANALYST, Rania Attending Clinician [phone] Unknown, Attending Attending Clinician Unavailab JOYCE Kumar Attending Clinician UnavailJoyce Fuentes CNM Attending Clinician [phone] WENDY JANE Attending Clinician Unavaila WENDY Fowler Attending Clinician Unavaila malachi MANEYALEXIS S Attending Clinician Unavailable Campos PAC, Alexis S Attending Clinician [phone] ANNABELLE JO Attending Clinician Unavailable BANDAR CASTILLO Attending Clinician Unavailable Bandar Castillo MD Attending Clinician [phone] Facundo Kwon Attending Clinician Unavailable Jacques PERRYP, Mayra Tony Attending Clinician + [phone] MAYRA SAAVEDRA Attending Clinician Unavailab RENETTA Lam S Attending Clinician Unavailable Jaymie PAC, Renetta S Attending Clinician [phone] , [facility] Attending Clinician Unavailable Annabelle Jo PA-C Attending Clinician [phone] Nurse, [facility] Attending Clinician Un available Vianey Garcia MD Attending Clinician [phone] Samanta Petty MD Attending Clinician [phone] Teri GARCIA, Lucrecia Martínez Attending Clinician Unavailable Belinda Hall DO Attending Clinician [phone] Les Huggins MD Attending Clinician [phone] Lab, [facility] Attending Clinician Unavailab Page Gorman Attending Clinician [phone] PAGE RED Attending Clinician Unavailable PANKAJ REESE Attending Clinician UnavailMariaa Mccormack NP Attending Clinician [phone] MARIAA RAE Attending Clinician Unavailable LES HUGGINS Admitting Clinician UnavailSANDI Vaughan Admitting Clinician Unavailable KNOW, DOES_NOT Admitting Clinician Unavailable Les Huggins MD Admitting Clinician [phone] BELINDA HALL Admitting Clinician Unavailab le Payers Payer Name Policy Type Policy Number Effective Date Expirati on Date Source [facility] [id number] 2020 00:00:00 ROSITAHeidiMARY Harrell/ YADY LÓPEZ OOO [id number] 2023 00:00:00 [facility] [place] [facility] [id number] 2024 00:00:00 [facility] SHAYLA BANNER COPAY FOCUS 9 [id number] 2023 00:00:00 Problems Condition Name Condition Details Condition Category Status Onset Date Resolution Date Last Treatment Date Treating Clinician Comments Source Obesity (BMI 30-39.9) Obesity (BMI 30-39.9) Disease Active 12-30 00:00: 00 [facility] BMI 29.0-29.9, adult BMI 29.0-29.9, adult Disease Active 12-29 00:00: 00 [facility] Menorrhagi a with irregular cycle Menorrhagi a with irregular cycle Disease Active 11-09 00:00: 00 [facility] Encounter for other general counseling or advice on contracept ion Encounter for other general counseling or advice on contracept ion Disease Resolve d 0 5-05 00:00: 00 2022-12-30 00:00:00 2022-12-30 11:00:39 [facility] BMI 29.0-29.9, adult BMI 29.0-29.9, adult Disease Resolve d 0 5-05 00:00: 00 2022-12-30 00:00:00 2022-12-30 11:00:33 [facility] Vitamin D deficiency Vitamin D deficiency Disease Resolve d 0 3-16 00:00: 00 2022-12-30 00:00:00 2022-12-30 11:00:56 [facility] Depo-Prove ra contracept kamran status Depo-Prove ra contracept kamran status Disease Resolve d 2020-0 3-16 00:00: 00 2022-12-30 00:00:00 2022-12-30 11:00:37 [facility] Acute medial meniscus tear, left, subsequent encounter Acute medial meniscus tear, left, subsequent encounter Disease Resolve d 9-22 00:00: 00 2022-12-30 00:00:00 2022-12-30 11:00:54 Overview: Formattin g of this note might be different from the original. Added automatic ally from request for surgery [id number] [facility] Allergies, Adverse Reactions, Alerts Allergy Name Allergy Type Status Severity Reaction(s) Onset Date Inactive Date Treating Clinician Comments Source No Known Allergie s DA Active U 01-06 00:00: 00 [facility] NO KNOWN ALLERGIE S Drug Class Active [facility] Social History Social Habit Start Date Stop Date Quantity Comments Source [facility] SDOH Alcohol Comment [facility] Alcoholic beverage intake 2024-05-31 00:00:00 2024-05-31 00:00:00 Lifetime non-drinker (finding) [facility] Alcohol intake 2023-10-26 00:00:00 2023-10-26 00:00:00 Lifetime non-drinker (finding) [facility] Exposure to SARS-CoV-2 (event) 2022-12-26 00:00:00 2023-01-05 08:00:00 Not sure [facility] Tobacco use and exposure 2022-12-27 00:00:00 2022-12-27 00:00:00 Smokeless tobacco non-user [facility] History of Social function 2022-12-27 00:00:00 2022-12-27 00:00:00 [facility] History SDOH Alcohol Frequency 2020-04-05 00:00:00 2020-04-05 00:00:00 1 [facility] History SDOH Alcohol Std Drinks 2020-04-05 00:00:00 2020-04-05 00:00:00 99 [facility] History SDOH Alcohol Binge 2020-04-05 00:00:00 2020-04-05 00:00:00 1 [facility] Sex assigned at 2003 00:00:00 2003 00:00:00 [facility] Smoking Status Start Date Stop Date Source Never smoked tobacco [facility] Medications Ordered Medication Name Filled Medication Name Start Date Stop Date Current Medication? Ordering Clinician Indication Dosage Frequency Signature (SIG) Comments Components Source cefdinir 300 mg capsule 2023-08 00:00: 00 06-09 04:59 :00 No [id number] 300mg Take 1 capsule by mouth every 12 (twelve) hours for 10 days. [facility] ketorolac (TORADOL) injection 30 mg 10-26 06:00: 00 10-26 05:23 :00 No 30mg 30 mg, Slow IV Push, ONCE, 1 dose, On Sun10/27/23 at 0000, Routine [facility] cefTRIAXone (ROCEPHIN) 1,000 mg in NaCl 0.9% (NS) 100 mL MINI-BAG 10-26 05:15: 00 10-26 05:52 :00 No 1000mg 1,000 mg, IV Piggyback, ONCE, 1 dose, On Sun10/26/23 at 2315, Administer over 30 Minutes, 100 mL
Reas on for Anti-Infec tive: Documented Infection< br>Documen christiano Infection Site: Urine
D uration of Therapy: Other (see Comments) [facility] cefdinir 300 mg capsule 10-25 00:00: 00 11-02 05:59 :00 No [id number] 300mg Take 1 capsule by mouth in the morning and 1 capsule in the evening. Do all this for 7 days. [facility] methylPREDN ISolone 4 mg tablets 09-20 00:00: 00 Yes [id number] Take by mouth SEE-INSTRU CTIONS. follow package directions [facility] amoxicillin -clavulanat e 875-125 mg per tablet 09-20 00:00: 00 Yes [id number] 1{tbl} Take 1 tablet by mouth every 12 (twelve) hours. [facility] iopamidol (ISOVUE 370-500 mL) injection 100 mL 2022-08 03:30: 00 07-17 03:30 :00 No [id number] 100mL 100 mL, Intravenou s, ONCE, 1 dose, On Sun07/16/23 at 2130, Routine [facility] methylPREDN ISolone 4 mg tablets 2022-08 00:00: 00 Yes [id number] Take by mouth SEE-INSTRU CTIONS. follow package directions [facility] clindamycin 300 mg capsule 2022-08 00:00: 00 07-27 05:59 :00 No [id number] 300mg Take 1 capsule by mouth 4 (four) times daily for 10 days. [facility] cefdinir 300 mg capsule 05-17 00:00: 00 05-28 04:59 :00 No [id number] 600mg Take 2 capsules by mouth in the morning for 10 days. [facility] acetaminoph en (TYLENOL) tablet 650 mg 01-05 13:15: 00 01-05 13:14 :00 No 650mg 650 mg, Oral, ONCE, 1 dose, On Sun01/05/23 at 0815, ALLI [facility] amoxicillin 500 mg capsule 01-05 00:00: 00 Yes [id number] 500mg Take 1 capsule by mouth in the morning and 1 capsule at noon and 1 capsule in the evening. [facility] ondansetron 4 mg disintegrat ing tablet 01-05 00:00: 00 Yes [id number] 4mg Take 1 tablet by mouth every 4 (four) hours as needed for Nausea and Vomiting (N/V). [facility] naproxen 500 mg tablet 01-05 00:00: 00 01-16 04:59 :00 No [id number] 500mg Take 1 tablet by mouth in the morning and 1 tablet in the evening. Take with meals. Do all this for 10 days. [facility] norethindro michelle-teestrad ioL-iron (MICROGESTI N FE) 1.5 mg-30 mcg (21)/75 mg (7) per tablet 12-27 00:00: 00 Yes [id number] 1{tbl} Take 1 tablet by mouth in the morning. [facility] naproxen (NAPROSYN) 500 mg tablet 2- 00:00: 00 12-27 00:00 :00 No [id number] 500mg Take 1 tablet by mouth in the morning and 1 tablet in the evening. Take with meals. [facility] ibuprofen (IBU) tablet 800 mg 1-30 04:30: 00 09-25 04:33 :00 No 800mg 800 mg, Oral, ONCE, 1 dose, On 09/24/22 at 2230, ALLI [facility] No known medications 5-05 16:08: 37 No [facility] pantoprazol e 40 mg EC tablet 4-11 00:00: 00 12-29 00:00 :00 No 40mg Take 40 mg by mouth daily. [facility] metroNIDAZO LE 500 mg tablet 3-23 00:00: 00 12-29 00:00 :00 No [id number] 500mg Take 1 tablet by mouth every 12 (twelve) hours. [facility] ergocalcife rol, vitamin d2, 1,250 mcg (50,000 unit) capsule 1-15 00:00: 00 12-29 00:00 :00 No [id number] 46861I Take 1 capsule by mouth weekly. [facility] ranitidine (ZANTAC) 150 mg tablet 2-11 00:00: 00 12-29 00:00 :00 No 150mg Take 1 tablet by mouth 2 (two) times daily. Follow up with your MD for further evaluation and treatment. [facility] Immunizations Ordered Immunization Name Filled Immunization Name Date Status Comments Source HPV9 2022-12-27 00:00:00 Completed HPV9 2022-12-27 00:00:00 Completed HPV9 2022-12-27 00:00:00 Completed [facility] HPV9 2022-12-27 00:00:00 Completed [facility] HPV9 2022-12-27 00:00:00 Completed [facility] Meningococcal Polysaccharide (groups A, C, Y and W-135) conjugate vaccine (MCV4P) 2020-03-30 00:00:00 Completed Meningococcal Polysaccharide (groups A, C, Y and W-135) conjugate vaccine (MCV4P) 2020-03-30 00:00:00 Completed Meningococcal Polysaccharide (groups A, C, Y and W-135) conjugate vaccine (MCV4P) 2020-03-30 00:00:00 Completed [facility] Meningococcal Polysaccharide (groups A, C, Y and W-135) conjugate vaccine (MCV4P) 2020-03-30 00:00:00 Completed [facility] Meningococcal Polysaccharide (groups A, C, Y and W-135) conjugate vaccine (MCV4P) 2020-03-30 00:00:00 Completed [facility] HPV9 2016-04-17 00:00:00 Completed Meningococcal Polysaccharide (groups A, C, Y and W-135) conjugate vaccine (MCV4P) 2016-04-17 00:00:00 Completed TDAP 2016-04-17 00:00:00 Completed HPV9 2016-04-17 00:00:00 Completed Meningococcal Polysaccharide (groups A, C, Y and W-135) conjugate vaccine (MCV4P) 2016-04-17 00:00:00 Completed TDAP 2016-04-17 00:00:00 Completed HPV9 2016-04-17 00:00:00 Completed [facility] Meningococcal Polysaccharide (groups A, C, Y and W-135) conjugate vaccine (MCV4P) 2016-04-17 00:00:00 Completed [facility] TDAP 2016-04-17 00:00:00 Completed [facility] HPV9 2016-04-17 00:00:00 Completed [facility] Meningococcal Polysaccharide (groups A, C, Y and W-135) conjugate vaccine (MCV4P) 2016-04-17 00:00:00 Completed [facility] TDAP 2016-04-17 00:00:00 Completed [facility] HPV9 2016-04-17 00:00:00 Completed [facility] Meningococcal Polysaccharide (groups A, C, Y and W-135) conjugate vaccine (MCV4P) 2016-04-17 00:00:00 Completed [facility] TDAP 2016-04-17 00:00:00 Completed [facility] HEPATITIS A 2009-06-30 00:00:00 Completed Varicella (varivax)(chicken pox) 2009-06-30 00:00:00 Completed HEPATITIS A 2009-06-30 00:00:00 Completed Varicella (varivax)(chicken pox) 2009-06-30 00:00:00 Completed HEPATITIS A 2009-06-30 00:00:00 Completed [facility] Varicella (varivax)(chicken pox) 2009-06-30 00:00:00 Completed [facility] HEPATITIS A 2009-06-30 00:00:00 Completed [facility] Varicella (varivax)(chicken pox) 2009-06-30 00:00:00 Completed [facility] HEPATITIS A 2009-06-30 00:00:00 Completed [facility] Varicella (varivax)(chicken pox) 2009-06-30 00:00:00 Completed [facility] DTaP, Unspecified Formulation 2007-06-10 00:00:00 Completed HEPATITIS [...] Completed DTaP, Unspecified Formulation 2007-06-10 00:00:00 Completed [facility] HEPATITIS A 2007-06-10 00:00:00 Completed [facility] Hib-HbOC 2007-06-10 00:00:00 Completed [facility] MMR 2007-06-10 00:00:00 Completed [facility] Pneumococcal 7 Conjugate, PCV7 (Prevnar7) 2007-06-10 00:00:00 Completed [facility] IPV 2007-06-10 00:00:00 Completed [facility] DTaP, Unspecified Formulation 2007-06-10 00:00:00 Completed [facility] HEPATITIS A 2007-06-10 00:00:00 Completed [facility] Hib-HbOC 2007-06-10 00:00:00 Completed [facility] MMR 2007-06-10 00:00:00 Completed [facility] Pneumococcal 7 Conjugate, PCV7 (Prevnar7) 2007-06-10 00:00:00 Completed [facility] IPV 2007-06-10 00:00:00 Completed [facility] DTaP, Unspecified Formulation 2007-06-10 00:00:00 Completed [facility] HEPATITIS A 2007-06-10 00:00:00 Completed [facility] Hib-HbOC 2007-06-10 00:00:00 Completed [facility] MMR 2007-06-10 00:00:00 Completed [facility] Pneumococcal 7 Conjugate, PCV7 (Prevnar7) 2007-06-10 00:00:00 Completed [facility] IPV 2007-06-10 00:00:00 Completed [facility] DTaP, Unspecified Formulation 2004-03-30 00:00:00 Completed [facility] HIB 4 Dose Schedule 2004-03-30 00:00:00 Completed MMR 2004-03-30 00:00:00 Completed IPV 2004-03-30 00:00:00 Completed Varicella (varivax)(chicken pox) 2004-03-30 00:00:00 Completed DTaP, Unspecified Formulation 2004-03-30 00:00:00 Completed [facility] HIB 4 Dose Schedule 2004-03-30 00:00:00 Completed MMR 2004-03-30 00:00:00 Completed IPV 2004-03-30 00:00:00 Completed Varicella (varivax)(chicken pox) 2004-03-30 00:00:00 Completed DTaP, Unspecified Formulation 2004-03-30 00:00:00 Completed [facility] HIB 4 Dose Schedule 2004-03-30 00:00:00 Completed [facility] MMR 2004-03-30 00:00:00 Completed [facility] IPV 2004-03-30 00:00:00 Completed [facility] Varicella (varivax)(chicken pox) 2004-03-30 00:00:00 Completed [facility] DTaP, Unspecified Formulation 2004-03-30 00:00:00 Completed [facility] HIB 4 Dose Schedule 2004-03-30 00:00:00 Completed [facility] MMR 2004-03-30 00:00:00 Completed [facility] IPV 2004-03-30 00:00:00 Completed [facility] Varicella (varivax)(chicken pox) 2004-03-30 00:00:00 Completed [facility] DTaP, Unspecified Formulation 2004-03-30 00:00:00 Completed [facility] HIB 4 Dose Schedule 2004-03-30 00:00:00 Completed [facility] MMR 2004-03-30 00:00:00 Completed [facility] IPV 2004-03-30 00:00:00 Completed [facility] Varicella (varivax)(chicken pox) 2004-03-30 00:00:00 Completed [facility] DTaP, Unspecified Formulation 2003 00:00:00 Completed Hep [...] Completed DTaP, Unspecified Formulation 2003 00:00:00 Completed [facility] Hep B, Adol or Pedi Dosage 2003 00:00:00 Completed [facility] HIB 4 Dose Schedule 2003 00:00:00 Completed [facility] Pneumococcal 7 Conjugate, PCV7 (Prevnar7) 2003 00:00:00 Completed [facility] IPV 2003 00:00:00 Completed [facility] DTaP, Unspecified Formulation 2003 00:00:00 Completed [facility] Hep B, Adol or Pedi Dosage 2003 00:00:00 Completed [facility] HIB 4 Dose Schedule 2003 00:00:00 Completed [facility] Pneumococcal 7 Conjugate, PCV7 (Prevnar7) 2003 00:00:00 Completed [facility] IPV 2003 00:00:00 Completed [facility] DTaP, Unspecified Formulation 2003 00:00:00 Completed [facility] Hep B, Adol or Pedi Dosage 2003 00:00:00 Completed [facility] HIB 4 Dose Schedule 2003 00:00:00 Completed [facility] Pneumococcal 7 Conjugate, PCV7 (Prevnar7) 2003 00:00:00 Completed [facility] IPV 2003 00:00:00 Completed [facility] DTaP, Unspecified Formulation 2003 00:00:00 Completed Hep [...] Completed DTaP, Unspecified Formulation 2003 00:00:00 Completed [facility] Hep B, Adol or Pedi Dosage 2003 00:00:00 Completed [facility] HIB 4 Dose Schedule 2003 00:00:00 Completed [facility] Pneumococcal 7 Conjugate, PCV7 (Prevnar7) 2003 00:00:00 Completed [facility] IPV 2003 00:00:00 Completed [facility] DTaP, Unspecified Formulation 2003 00:00:00 Completed [facility] Hep B, Adol or Pedi Dosage 2003 00:00:00 Completed [facility] HIB 4 Dose Schedule 2003 00:00:00 Completed [facility] Pneumococcal 7 Conjugate, PCV7 (Prevnar7) 2003 00:00:00 Completed [facility] IPV 2003 00:00:00 Completed [facility] DTaP, Unspecified Formulation 2003 00:00:00 Completed [facility] Hep B, Adol or Pedi Dosage 2003 00:00:00 Completed [facility] HIB 4 Dose Schedule 2003 00:00:00 Completed [facility] Pneumococcal 7 Conjugate, PCV7 (Prevnar7) 2003 00:00:00 Completed [facility] IPV 2003 00:00:00 Completed [facility] Hep B, Adol or Pedi Dosage 2003 00:00:00 Completed Hep B, Adol or Pedi Dosage 2003 00:00:00 Completed Hep B, Adol or Pedi Dosage 2003 00:00:00 Completed [facility] Hep B, Adol or Pedi Dosage 2003 00:00:00 Completed [facility] Hep B, Adol or Pedi Dosage 2003 00:00:00 Completed [facility] DTaP, Unspecified Formulation Unknown Completed [facility] HEPATITIS A Unknown Completed [facility] Hep B, Adol or Pedi Dosage Unknown Completed [facility] Hib-HbOC Unknown Completed [facility] HIB 4 Dose Schedule Unknown Completed [facility] HPV9 Unknown Completed [facility] Meningococcal Polysaccharide (groups A, C, Y and W-135) conjugate vaccine (MCV4P) Unknown Completed [facility] MMR Unknown Completed [facility] Pneumococcal 7 Conjugate, PCV7 (Prevnar7) Unknown Completed [facility] IPV Unknown Completed [facility] Varicella (varivax)(chicken pox) Unknown Completed [facility] TDAP Unknown Completed [facility] DTaP, Unspecified Formulation Unknown Completed [facility] HEPATITIS A Unknown Completed [facility] Hep B, Adol or Pedi Dosage Unknown Completed [facility] Hib-HbOC Unknown Completed [facility] HIB 4 Dose Schedule Unknown Completed [facility] HPV9 Unknown Completed [facility] Meningococcal Polysaccharide (groups A, C, Y and W-135) conjugate vaccine (MCV4P) Unknown Completed [facility] MMR Unknown Completed [facility] Pneumococcal 7 Conjugate, PCV7 (Prevnar7) Unknown Completed [facility] IPV Unknown Completed [facility] Varicella (varivax)(chicken pox) Unknown Completed [facility] TDAP Unknown Completed [facility] DTaP, Unspecified Formulation Unknown Completed [facility] HEPATITIS A Unknown Completed [facility] Hep B, Adol or Pedi Dosage Unknown Completed [facility] Hib-HbOC Unknown Completed [facility] HIB 4 Dose Schedule Unknown Completed [facility] HPV9 Unknown Completed [facility] Meningococcal Polysaccharide (groups A, C, Y and W-135) conjugate vaccine (MCV4P) Unknown Completed [facility] MMR Unknown Completed [facility] Pneumococcal 7 Conjugate, PCV7 (Prevnar7) Unknown Completed [facility] IPV Unknown Completed [facility] Varicella (varivax)(chicken pox) Unknown Completed [facility] TDAP Unknown Completed [facility] DTaP, Unspecified Formulation Unknown Completed [facility] HEPATITIS A Unknown Completed [facility] Hep B, Adol or Pedi Dosage Unknown Completed [facility] Hib-HbOC Unknown Completed [facility] HIB 4 Dose Schedule Unknown Completed [facility] HPV9 Unknown Completed [facility] Meningococcal Polysaccharide (groups A, C, Y and W-135) conjugate vaccine (MCV4P) Unknown Completed [facility] MMR Unknown Completed [facility] Pneumococcal 7 Conjugate, PCV7 (Prevnar7) Unknown Completed [facility] IPV Unknown Completed [facility] Varicella (varivax)(chicken pox) Unknown Completed [facility] TDAP Unknown Completed [facility] DTaP, Unspecified Formulation Unknown Completed [facility] HEPATITIS A Unknown Completed [facility] Hep B, Adol or Pedi Dosage Unknown Completed [facility] Hib-HbOC Unknown Completed [facility] HIB 4 Dose Schedule Unknown Completed [facility] HPV9 Unknown Completed [facility] Meningococcal Polysaccharide (groups A, C, Y and W-135) conjugate vaccine (MCV4P) Unknown Completed [facility] MMR Unknown Completed [facility] Pneumococcal 7 Conjugate, PCV7 (Prevnar7) Unknown Completed [facility] IPV Unknown Completed [facility] Varicella (varivax)(chicken pox) Unknown Completed [facility] TDAP Unknown Completed [facility] Vital Signs Vital Name Observation Time Observation Value Comments S ource Systolic blood pressure 2024-09-30 20:40:00 125 mm[Hg] [facility] Diastolic blood pressure 2024-09-30 20:40:00 85 mm[Hg] [facility] Heart rate 2024-09-30 20:40:00 78 /min [facility] Body temperature 2024-09-30 20:40:00 36.61 [place] [facility] Respiratory rate 2024-09-30 20:40:00 16 /min [facility] Oxygen saturation in Arterial blood by Pulse oximetry 2024-09-30 20:40:00 97 /min [facility] Body height 2024-09-30 20:37:00 152.4 cm [facility] Body weight 2024-09-30 20:37:00 78.245 kg [facility] BMI 2024-09-30 20:37:00 33.69 kg/m2 [facility] Systolic blood pressure 2024-05-29 21:17:00 135 mm[Hg] [facility] Diastolic blood pressure 2024-05-29 21:17:00 91 mm[Hg] [facility] Heart rate 2024-05-29 21:17:00 102 /min [facility] Body temperature 2024-05-29 21:17:00 36.89 [place] [facility] Respiratory rate 2024-05-29 21:17:00 16 /min [facility] Body height 2024-05-29 21:17:00 152.4 cm [facility] Body weight 2024-05-29 21:17:00 79.833 kg [facility] BMI 2024-05-29 21:17:00 34.37 kg/m2 [facility] Oxygen saturation in Arterial blood by Pulse oximetry 2024-05-29 21:17:00 100 /min [facility] Systolic blood pressure 2023-10-27 03:54:00 135 mm[Hg] [facility] Diastolic blood pressure 2023-10-27 03:54:00 103 mm[Hg] [facility] Heart rate 2023-10-27 03:54:00 95 /min [facility] Body temperature 2023-10-27 03:54:00 36.72 [place] [facility] Respiratory rate 2023-10-27 03:54:00 18 /min [facility] Body height 2023-10-27 03:54:00 152.4 cm [facility] Body weight 2023-10-27 03:54:00 70.761 kg [facility] BMI 2023-10-27 03:54:00 30.47 kg/m2 [facility] Oxygen saturation in Arterial blood by Pulse oximetry 2023-10-27 03:54:00 100 /min [facility] Systolic blood pressure 2023-09-21 04:15:00 120 mm[Hg] [facility] Diastolic blood pressure 2023-09-21 04:15:00 68 mm[Hg] [facility] Heart rate 2023-09-21 04:15:00 93 /min [facility] Body temperature 2023-09-21 04:15:00 36.89 [place] [facility] Respiratory rate 2023-09-21 04:15:00 16 /min [facility] Body height 2023-09-21 04:15:00 152.4 cm [facility] Body weight 2023-09-21 04:15:00 70.761 kg [facility] BMI 2023-09-21 04:15:00 30.47 kg/m2 [facility] Oxygen saturation in Arterial blood by Pulse oximetry 2023-09-21 04:15:00 100 /min [facility] Systolic blood pressure 2023-07-17 03:00:00 122 mm[Hg] [facility] Diastolic blood pressure 2023-07-17 03:00:00 86 mm[Hg] [facility] Heart rate 2023-07-17 03:00:00 73 /min [facility] Respiratory rate 2023-07-17 03:00:00 16 /min [facility] Oxygen saturation in Arterial blood by Pulse oximetry 2023-07-17 03:00:00 100 /min [facility] Body weight 2023-07-17 00:43:00 69.854 kg [facility] BMI 2023-07-17 00:43:00 30.08 kg/m2 [facility] Body temperature 2023-07-17 00:43:00 36.78 [place] [facility] Body height 2023-07-17 00:43:00 152.4 cm [facility] Systolic blood pressure 2023-05-17 19:58:00 112 mm[Hg] [facility] Diastolic blood pressure 2023-05-17 19:58:00 76 mm[Hg] [facility] Heart rate 2023-05-17 19:58:00 71 [facility] 2023-05-17 19:58:00 36.61 [place] [facility] Respiratory rate 2023-05-17 19:58:00 16 /min [facility] Body height 2023-05-17 19:58:00 152.4 cm [facility] Body weight 2023-05-17 19:58:00 66.225 kg [facility] BMI 2023-05-17 19:58:00 28.51 kg/m2 [facility] Oxygen saturation in Arterial blood by Pulse oximetry 2023-05-17 19:58:00 98 /min [facility] Body temperature 2023-01-05 14:10:13 37.72 [place] [facility] Systolic blood pressure 2023-01-05 14:00:00 119 mm[Hg] [facility] Diastolic blood pressure 2023-01-05 14:00:00 79 mm[Hg] [facility] Heart rate 2023-01-05 14:00:00 89 /min [facility] Respiratory rate 2023-01-05 14:00:00 15 /min [facility] Oxygen saturation in Arterial blood by Pulse oximetry 2023-01-05 14:00:00 96 /min [facility] Body height 2023-01-05 13:02:00 152.4 cm [facility] Body weight 2023-01-05 13:02:00 72.576 kg [facility] BMI 2023-01-05 13:02:00 31.25 kg/m2 [facility] Systolic blood pressure 2022-12-27 16:46:00 105 mm[Hg] [facility] Diastolic blood pressure 2022-12-27 16:46:00 70 mm[Hg] [facility] Heart rate 2022-12-27 16:46:00 71 /min [facility] Body temperature 2022-12-27 16:46:00 36.78 [place] [facility] Respiratory rate 2022-12-27 16:46:00 18 /min [facility] Body height 2022-12-27 16:46:00 152.4 cm [facility] Body weight 2022-12-27 16:46:00 73.539 kg [facility] BMI 2022-12-27 16:46:00 31.66 kg/m2 [facility] Systolic blood pressure 2022-09-28 02:27:00 133 mm[Hg] [facility] Diastolic blood pressure 2022-09-28 02:27:00 91 mm[Hg] [facility] Heart rate 2022-09-28 02:27:00 94 /min [facility] Body temperature 2022-09-28 02:27:00 37.39 [place] [facility] Respiratory rate 2022-09-28 02:27:00 16 /min [facility] Body height 2022-09-28 02:27:00 152.4 cm [facility] Body weight 2022-09-28 02:27:00 68.13 kg [facility] BMI 2022-09-28 02:27:00 29.33 kg/m2 [facility] Oxygen saturation in Arterial blood by Pulse oximetry 2022-09-28 02:27:00 100 /min [facility] Systolic blood pressure 2022-09-25 03:45:00 124 mm[Hg] [facility] Diastolic blood pressure 2022-09-25 03:45:00 79 mm[Hg] [facility] Heart rate 2022-09-25 03:45:00 81 /min [facility] Body temperature 2022-09-25 03:45:00 36.89 [place] [facility] Respiratory rate 2022-09-25 03:45:00 15 /min [facility] Body height 2022-09-25 03:45:00 152.4 cm [facility] Body weight 2022-09-25 03:45:00 68.04 kg [facility] BMI 2022-09-25 03:45:00 29.29 kg/m2 [facility] Oxygen saturation in Arterial blood by Pulse oximetry 2022-09-25 03:45:00 100 /min [facility] Systolic blood pressure 2021-12-29 20:04:00 134 mm[Hg] [facility] Diastolic blood pressure 2021-12-29 20:04:00 86 mm[Hg] [facility] Heart rate 2021-12-29 20:04:00 76 /min [facility] Body temperature 2021-12-29 20:04:00 36.94 [place] [facility] Respiratory rate 2021-12-29 20:04:00 18 /min [facility] Body height 2021-12-29 20:04:00 152.4 cm [facility] Body weight 2021-12-29 20:04:00 68.856 kg [facility] BMI 2021-12-29 20:04:00 29.65 kg/m2 [facility] Body mass index (BMI) [Percentile] Per age and sex 2021-12-29 20:04:00 93.49 % [facility] Procedures Procedure Date / Time Performed Performing Clinician Source POCT TEST 2024-09-30 21:32:00 Darion Nobles [facility] URINALYSIS 2024-09-30 21:30:00 Gerard Nobles [facility] INFLUENZA A/B RSV COVID NAAT 2024-09-30 21:30:00 Gerard Nobles [facility] URINALYSIS 2024-05-29 21:20:00 Kristian Terrell [facility] POCT TEST 2024-05-29 21:20:00 Kristian Terrell [facility] POCT TEST 2023-10-27 04:27:00 Darion Nobles [facility] TEST, SERUM 2023-10-27 04:26:00 Lory Nobles [facility] COMP. METABOLIC PANEL ([id number]) 2023-10-27 04:26:00 Gerard Nobles [facility] CBC WITH DIFF 2023-10-27 04:26:00 Gerard Nobles [facility] URINALYSIS 2023-10-27 04:26:00 Gerard Nobles [facility] CONSENT/REFUSAL FOR DIAGNOSIS AND TREATMENT 2023-10-27 03:50:18 Doctor Unassigned, [place] [facility] ASSIGNMENT OF BENEFITS 2023-09-28 16:03:04 Docto r Unassigned, [place] [facility] NOTICE OF PRIVACY PRACTICES 2023-09-21 04:06:10 Doctor Unassigned, [place] [facility] CONSENT/REFUSAL FOR DIAGNOSIS AND TREATMENT 2023-09-21 04:05:29 Doctor Unassigned, [place] [facility] RAPID STREP SCREEN FOR GROUP A 2023-07-17 03:07:00 Roberto Griffith [facility] POCT TEST 2023-07-17 01:53:00 Marcelina Cardozo [facility] COMP. METABOLIC PANEL ([id number]) 2023-07-17 01:51:00 Sandi Cardozo [facility] CBC WITH DIFF 2023-07-17 01:51:00 Sandi Cardozo [facility] URINALYSIS 2023-07-17 01:51[facility]00 [facility]MON[facility]LEOS[facility] 2023-07-17 01:51:00 Roberto Griffith [facility] CONSENT/REFUSAL FOR DIAGNOSIS AND TREATMENT 2023-07-17 00:37:35 Doctor Unassigned, [place] [facility] POCT TEST 2023-05-17 20:06:00 Farooq Davis [facility] POCT URINALYSIS 2023-05-17 20:00:00 Farooq Davis [facility] RAPID STREP SCREEN FOR GROUP A 2023-01-05 13:18:00 Roberto Griffith [facility] RAPID INFLUENZA A/B 2023-01-05 13:09:00 Aminah Griffith [facility] COVID-19 (ID NOW RAPID TESTING) 2023-01-05 13:09:00 Roberto Griffith [facility] THYROID STIMULATING HORMONE 2022-12-27 17:10:00 Joyce Lopez [facility] CBC WITH DIFF 2022-12-27 17:10:00 Joyce Lopez [facility] GLYCOSYLATED HEMOGLOBIN (A1C) 2022-12-27 17:10:00 Joyce Lopez [facility] RUBELLA SCREEN IGG 2022-12-27 17:10:00 Gretchen Lopez [facility] HCV ANTIBODY 2022-12-27 17:10:00 [facility] & CHLAMYDIA AMPLIFIED ASSAY 2022-12-27 17:10:00 Joyce Lopez [facility] HIV 1/2 AG-AB WITH REFLEX 2022-12-27 17:10:00 Joyce Lopez [facility] SYPHILIS IGG/IGM 2022-12-27 17:10:00 Joyce Lopez [facility] GARDASIL 9 (HPV 9V) VACCINE 2022-12-27 16:53:08 Joyce Lopez [facility] POCT TEST 2022-12-27 16:47:00 Danielle Lopez [facility] ASSIGNMENT OF BENEFITS 2022-12-27 15:53:31 Docto r Unassigned, [place] [facility] CONSENT/REFUSAL FOR DIAGNOSIS AND TREATMENT 2022-09-28 02:20:10 Doctor Unassigned, [place] [facility] POCT TEST 2022-09-25 04:35:00 Bandar Castillo [facility] NOTICE OF PRIVACY PRACTICES 2022-09-25 03:45:44 Doctor Unassigned, [place] [facility] CONSENT/REFUSAL FOR DIAGNOSIS AND TREATMENT 2022-09-25 03:44:56 Doctor Unassigned, [place] [facility] Encounters Start Date/Time End Date/Time Encounter Type Admission Type Attending [facility] Care Facility Care Department Encounter ID Source 2021-06-26 08:58:39 Emergency [facility] [id number] [facility] 2021-06-24 18:43:46 Outpatient LES HUGGINS [facility] [id number] [facility] 2024-09-30 14:42:00 2024-09-30 18:18:00 Emergency GERARD CRISTOBAL SHINTA [facility] ERT [id number] [facility] 2024-09-30 14:42:00 2024-09-30 18:18:00 Emergency Gerard Nobles [facility] 1.2.840.114 350.1.13.10 4.2.7.2.686 [id number] [facility] 2024-07-28 09:45:00 2024-07-28 09:45:00 Outpatient PHAN GARAY [facility] [id number] [facility] 2024-07-28 09:07:05 2024-07-28 09:07:05 Outpatient STEPHANIE BROWN [id number] Marquis Hart 2024-05-29 16:19:00 2024-05-29 17:53:00 Emergency X Kristian TERRELL K [facility] ERT [id number] [facility] 2024-05-29 16:19:00 2024-05-29 17:53:[address] [facility] 1.2.840.114 350.1.13.10 4.2.7.2.686 [id number] [facility] 2023-11-29 15:30:00 2023-11-29 15:30:00 Outpatient ALAN BAEZA [id number] Yady López 2023-10-26 21:57:00 2023-10-26 23:58:00 Emergency X GERARD NOBLES SHINTA [facility] ERT [id number] [facility] 2023-10-26 21:57:00 2023-10-26 23:58:00 Emergency Gerard Nobles [facility] 1.2.840.114 350.1.13.10 4.2.7.2.686 [id number] [facility] 2023-10-16 15:53:57 2023-10-16 15:53:57 Outpatient SFA [facility] [id number] Marquis Jairo Hart 2023-09-28 10:15:00 2023-09-28 10:15:00 Outpatient CATRACHITA PRATHER [facility] [id number] [facility] 2023-09-28 00:00:00 2023-09-28 00:00:00 Orders Only Doctor Unassigned, [place] [facility] 1.2840.114 350.1.13.10 4.2.7.2.686 [id number] [facility] 2023-09-20 22:18:00 2023-09-20 23:14:00 Emergency X ROBERTO GRIFFITH [facility] ERT [id number] [facility] 2023-09-20 22:18:00 2023-09-20 23:14:00 Emergency Roberto Griffith [facility] 1.84.114 350.1.13.10 4.2.7.2.686 [id number] [facility] 2023-07-16 18:45:00 2023-07-16 22:54:00 Emergency X ROBERTO GRIFFITH [facility] ERT [id number] [facility] 2023-07-16 18:45:00 2023-07-16 22:54:00 Emergency CasSandi simpson Donnell [facility] 1.84.114 350.1.13.10 4.2.7.2.686 [id number] [facility] 2023-07-03 14:00:00 2023-07-03 14:00:00 Outpatient R VIANEY GARCIA [facility] [id number] [facility] 2023-05-17 15:00:00 2023-05-17 15:24:56 Outpatient R FAROOQ DAVIS [facility] [id number] [facility] 2023-05-17 15:00:00 2023-05-17 15:20:00 Urgent Care Farooq Davis Unknown, Attending [facility] 1.840.114 350.1.13.10 4.2.7.2.686 [id number] [facility] 2023-03-27 13:30:00 2023-03-27 13:30:00 Outpatient R JOYCE LOPEZ [facility] [id number] [facility] 2023-03-13 00:00:00 2023-03-13 00:00:00 Telephone Joyce Lopez [facility] PATIENT FINANCIAL COORDINATOR [facility] MATERNAL & CHILD [facility] 1.840.114 350.1.13.10 4.2.7.2.686 [id number] [facility] 2023-01-05 08:03:00 2023-01-05 09:46:00 Emergency X ROBERTO GRIFFITH [facility] ERT [id number] [facility] 2023-01-05 08:03:00 2023-01-05 09:46:00 Emergency Roberto Griffith [facility] 1.2840.114 350.1.13.10 4.2.7.2.686 [id number] [facility] 2022-12-27 11:00:00 2022-12-27 12:13:57 Outpatient JOYCE BARCENAS [facility] [id number] [facility] 2022-12-27 11:00:00 2022-12-27 12:13:57 Office Visit Joyce Lopez [facility] PATIENT FINANCIAL COORDINATOR [facility] 1.0.114 350.1.13.10 4.2.7.2.686 [id number] [facility] 2022-12-27 00:00:00 2022-12-27 00:00:00 Orders Only Doctor Unassigned, [place] [facility] 1.2840.114 350.1.13.10 4.2.7.2.686 [id number] [facility] 2022-09-27 20:33:00 2022-09-27 21:45:00 Emergency X ALEXIS CAMPOS [facility] ERT [id number] [facility] 2022-09-27 20:33:00 2022-09-27 21:45:00 Emergency Alexis Campos [facility] 1.20.114 350.1.13.10 4.2.7.2.686 [id number] [facility] 2022-09-27 10:15:00 2022-09-27 10:15:00 Outpatient ANNABELLE WISE [facility] [id number] [facility] 2022-09-24 21:55:00 2022-09-24 23:00:00 Emergency X BANDAR CASTILLO [facility] ERT [id number] [facility] 2022-09-24 21:55:00 2022-09-24 23:00:00 Emergency Bandar Castillo S [facility] 1..114 350.1.13.10 4.2.7.2.686 [id number] [facility] 2022-01-06 09:56:00 2022-01-06 09:56:00 Outpatient Facundo Almanzar [facility] [id number] 2021-12-30 00:00:00 2021-12-30 00:00:00 Telephone Mayra Saavedra [facility] PATIENT FINANCIAL COORDINATOR [facility] MATERNAL & CHILD [facility] 1.84.114 350.1.13.10 4.2.7.2.686 [id number] [facility] 2021-12-29 15:15:00 2021-12-29 15:46:42 Outpatient R MAYRA SAAVEDRA [facility] [id number] [facility] 2021-12-29 15:15:00 2021-12-29 15:46:42 Office Visit Mayra Saavedra [facility] PATIENT FINANCIAL COORDINATOR [facility] CHILD [facility] 1..114 350.1.13.10 4.2.7.2.686 [id number] [facility] 2021-12-29 00:00:00 2021-12-29 00:00:00 Orders Only Doctor Unassigned, [place] [facility] 1..114 350.1.13.10 4.2.7.2.686 [id number] [facility] 2021-12-22 09:45:00 2021-12-22 09:45:00 Outpatient RENETTA JULIEN [facility] [id number] [facility] 2021-12-22 09:45:00 2021-12-22 09:45:00 Outpatient RENETTA JULIEN [facility] [id number] [facility] 2021-12-14 15:00:00 2021-12-14 15:00:00 Outpatient Cecily VIANEY GARCIA [facility] [id number] [facility] 2021-12-08 08:53:50 2021-12-08 23:59:00 Outpatient Cecily COON RENETTA [facility] [id number] [facility] 2021-12-08 08:45:00 2021-12-08 10:02:07 Outpatient RENETTA JULIEN [facility] [id number] [facility] 2021-12-08 08:45:00 2021-12-08 10:02:07 Outpatient Cecily COON RENETTA [facility] [id number] [facility] 2021-12-08 08:45:00 2021-12-08 09:00:00 [facility] 1.2.840.114 350.1.13.10 4.2.7.2.686 [id number] [facility] 2021-12-01 14:15:00 2021-12-01 14:15:00 Outpatient RENETTA JULIEN [facility] [id number] [facility] 2021-12-01 14:15:00 2021-12-01 14:15:00 Outpatient Cecily COON RENETTA [facility] [id number] [facility] 2021-11-29 09:15:00 2021-11-29 09:30:00 [place] Inspector Visit 2, [facility] 1.2.840.114 350.1.13.10 4.2.7.2.686 [id number] [facility] 2021-11-29 09:15:00 2021-11-29 09:15:00 Outpatient ANNABELLE WISE [facility] [id number] [facility] 2021-11-29 09:15:00 2021-11-29 09:15:00 Outpatient ANNABELLE WISE [facility] [id number] [facility] 2021-11-29 08:30:00 2021-11-29 08:30:00 Office Visit Annabelle Jo [facility] 1..840.114 350.1.13.10 4.2.7.2.686 [id number] [facility] 2021-11-24 00:00:00 2021-11-24 00:00:00 Orders Only Doctor Unassigned, [place] [facility] 1..840.114 350.1.13.10 4.2.7.2.686 [id number] [facility] 2021-11-17 15:00:00 2021-11-17 15:00:00 [facility] [id number] 2021-11-09 09:00:00 2021-11-09 09:00:00 [facility] [id number] [facility] 2021-09-21 15:30:00 2021-09-21 15:41:13 Nurse Visit Nurse, [facility] Vianey Garcia [facility] 1..840.114 350.1.13.10 4.2.7.2.686 [id number] 134 [id number] [facility] 2021-09-21 15:30:00 2021-09-21 15:30:00 Outpatient VIANEY RUIZ [facility] [id number] [facility] 2021-09-13 15:30:00 2021-09-13 15:30:00 Outpatient Cecily GARCIA [facility] [id number] [facility] 2021-08-03 15:30:00 2021-08-03 15:30:00 Outpatient R [facility] [id number] [facility] 2021-05-11 15:44:35 2021-05-11 16:44:44 Nurse Visit Nurse, [facility] Samanta Petty [facility] 1..840.114 350.1.13.10 4.2.7.2.686 [id number] 134 [id number] [facility] 2021-05-11 08:00:00 2021-05-11 08:00:00 Outpatient R [facility] [id number] [facility] 2021-05-11 00:00:00 2021-05-11 00:00:00 Orders Only Doctor Unassigned, Nenana [facility] 1..840.114 350.1.13.10 4.2.7.2.686 [id number] [id number] [facility] 2021-05-10 08:00:00 2021-05-10 08:00:00 Outpatient R [facility] [id number] [facility] 2021-05-03 15:00:00 2021-05-03 15:00:00 Outpatient R [facility] [id number] [facility] 2021-04-30 00:00:00 2021-04-30 00:00:00 Nurse Triage Lucrecia Williamson [facility] 1..840.114 350.1.13.10 4.2.7.2.686 [id number] [facility] 2021-03-18 15:30:00 2021-03-18 15:30:00 Outpatient R [facility] [id number] [facility] 2021-03-16 14:30:00 2021-03-16 14:30:00 Outpatient R [facility] [id number] [facility] 2021-03-16 00:00:00 2021-03-16 00:00:00 Telephone Adum, Vianey Hernandez [facility] 1.2.840.114 350.1.13.10 4.2.7.2.686 [id number] 134 [id number] [facility] 2021-02-25 10:15:00 2021-02-25 10:15:00 Outpatient RENETTA JULIEN [facility] [id number] [facility] 2021-02-17 15:00:00 2021-02-17 15:00:00 Outpatient RENETTA JULIEN [facility] [id number] [facility] 2021-02-11 10:00:00 2021-02-11 10:00:00 Outpatient Cecily COON RENETTA [facility] [id number] [facility] 2020-12-15 14:23:49 2020-12-15 14:38:49 [place] Inspector Visit 2, [facility] Lab Adum, Vianey Hernandez [facility] 1.2.840.114 350.1.13.10 4.2.7.2.686 [id number] [facility] 2020-12-15 13:51:57 2020-12-15 14:18:57 Nurse Visit Nurse, [facility] AdumVianey [facility] 1.2.840.114 350.1.13.10 4.2.7.2.686 [id number] 134 [id number] [facility] 2020-12-15 14:00:00 2020-12-15 14:00:00 Outpatient R JASPREET [facility] [id number] [facility] 2020-12-06 13:30:00 2020-12-06 13:30:00 Outpatient R JASPREET [facility] [id number] [facility] 2020-11-20 17:26:00 2020-11-20 17:37:00 Emergency Belinda Hall [facility] 1.2.840.114 350.1.13.10 4.2.7.2.686 [id number] [facility] 2020-11-20 00:00:00 2020-11-20 00:00:00 Orders Only Doctor Unassigned, Nenana [facility] 1.2.840.114 350.1.13.10 4.2.7.2.686 [id number] [id number] [facility] 2020-11-16 00:00:00 2020-11-16 00:00:00 Case Management AdJosie troyian [facility] 1.2.840.114 350.1.13.10 4.2.7.2.686 [id number] 134 [id number] [facility] 2020-11-09 13:35:56 2020-11-09 15:09:56 Office Visit Vianey Garcia [facility] 1.2.840.114 350.1.13.10 4.2.7.2.686 [id number] [facility] 2020-11-09 13:30:00 2020-11-09 13:30:00 Outpatient R VIANEY GARCIA [facility] [id number] [facility] 2020-11-08 15:45:00 2020-11-08 15:45:00 Outpatient R ANNABELLE JO [facility] [id number] [facility] 2020-11-05 15:00:00 2020-11-05 15:00:00 Outpatient R JASPREET [facility] [id number] [facility] 2020-11-04 14:30:00 2020-11-04 14:30:00 Outpatient R JASPREET [facility] [id number] [facility] 2020-11-02 00:00:00 2020-11-02 00:00:00 Telephone AdVianey troy [facility] 1.2.840.114 350.1.13.10 4.2.7.2.686 [id number] [facility] 2020-09-23 00:00:00 2020-09-23 00:00:00 Orders Only Doctor Unassigned, Nenana [facility] 1.2.840.114 350.1.13.10 4.2.7.2.686 [id number] [id number] [facility] 2020-09-15 00:00:00 2020-09-15 00:00:00 Case Management Adum, Vianey Hernandez [facility] [place] [facility] 1.2.840.114 350.1.13.10 4.2.7.2.686 [id number] 134 [id number] [facility] 2020-09-10 00:00:00 2020-09-10 00:00:00 Case Management Adum, Vianey Hernandez [facility] 1.2.840.114 350.1.13.10 4.2.7.2.686 [id number] 134 [id number] [facility] 2020-09-09 10:14:30 2020-09-09 10:29:30 [place] Inspector Visit 2, [facility] Lab Adzahida Vianey Hernandez [facility] 1.2.840.114 350.1.13.10 4.2.7.2.686 [id number] [facility] 2020-09-09 08:31:02 2020-09-09 09:58:53 Office Visit Adzahida Vianey Hernandez [facility] [place] [facility] 1.2.840.114 350.1.13.10 4.2.7.2.686 [id number] 134 [id number] [facility] 2020-09-09 09:00:00 2020-09-09 09:00:00 Outpatient R ADVIANEY TROY [facility] [id number] [facility] 2020-09-09 00:00:00 2020-09-09 00:00:00 Orders Only Doctor Unassigned, Nenana [facility] 1.2.840.114 350.1.13.10 4.2.7.2.686 [id number] [id number] [facility] 2020-06-15 00:00:00 2020-06-15 00:00:00 Orders Only Doctor Unassigned, Nenana [facility] 1.2.840.114 350.1.13.10 4.2.7.2.686 [id number] [id number] [facility] 2020-06-07 15:12:17 2020-06-07 15:27:17 Office Visit Renetta Coon [facility] 1.0.114 350.1.13.10 4.2.7.2.686 [id number] [facility] 2020-06-07 15:00:00 2020-06-07 15:00:00 Outpatient R JAYMIE RENETTA [facility] [id number] [facility] 2020-05-24 05:58:00 2020-05-24 09:24:00 Hospital Encounter Les Huggins [facility] Surgical [place] 1..114 350.1.13.10 4.2.7.2.686 [id number] [facility] 2020-05-22 13:24:32 2020-05-22 13:44:32 Laboratory Only Lab, Adc Fam Pob I Adam [facility] Professio nal Office Building One 1..114 350.1.13.10 4.2.7.2.686 [id number] [facility] 2020-05-22 13:20:00 2020-05-22 13:20:00 Outpatient Cecily [facility] [id number] [facility] 2020-05-21 11:00:00 2020-05-21 11:00:00 Outpatient PANKAJ MYERS [facility] [id number] [facility] 2020-05-17 00:00:00 2020-05-17 00:00:00 Prep For Surgery Les Huggins [facility] Special[facility] yamilex [place] 1.2.840.114 350.1.13.10 4.2.7.2.686 [id number] [facility] 2020-05-13 11:14:45 2020-05-13 11:39:37 Office Visit Renetta Coon Craig L [facility] yamilex [place] 1.2.840.114 350.1.13.10 4.2.7.2.686 [id number] [facility] 2020-05-13 11:00:00 2020-05-13 11:00:00 Outpatient R LES HUGGINS [facility] [id number] [facility] 2020-05-13 00:00:00 2020-05-13 00:00:00 [facility] ([facility] 1.2.840.114 350.1.13.10 4.2.7.2.686 [id number] [facility] 2020-05-13 00:00:00 2020-05-13 00:00:00 Letter (Out) JaymieRenetta [facility] yamilex [place] 1.2.840.114 350.1.13.10 4.2.7.2.686 [id number] [facility] 2020-05-05 15:15:00 2020-05-05 23:59:00 Hospital Encounter Les Huggins [facility] 1.2.840.114 350.1.13.10 4.2.7.2.686 [id number] [facility] 2020-05-05 00:00:00 2020-05-05 00:00:00 Outpatient ELS SUTHERLAND [facility] [id number] [facility] 2020-04-15 00:00:00 2020-04-15 00:00:00 Orders Only Doctor Unassigned, Nenana [facility] 1.2.840.114 350.1.13.10 4.2.7.2.686 [id number] [facility] 2020-04-08 00:00:00 2020-04-08 00:00:00 Telephone HugginsLes David [facility] yamilex [place] 1.2.840.114 350.1.13.10 4.2.7.2.686 [id number] [facility] 2020-04-05 14:45:57 2020-04-05 15:00:57 Office Visit Renetta Coon [facility] Special y[place]ilex [place] 1.2.840.114 350.1.13.10 4.2.7.2.686 [id number] [facility] 2020-04-05 15:00:00 2020-04-05 15:00:00 Outpatient Cecily COON [facility] [id number] [facility] 2020-04-01 14:00:00 2020-04-01 14:00:00 Outpatient Cecily COON [facility] [id number] [facility] 2020 11:37:49 2020 13:13:00 Emergency Mariaa Rae [facility] 1.2.840.114 350.1.13.10 4.2.7.2.686 [id number] [facility] 2020 11:37:49 2020 13:13:00 Emergency X MARIAA RAE [facility] ERT [id number] [facility] Results Test Description Test Time Test Comments Results Result Co mments Source [facility] [id number] 21:20:00* Test Item Value Reference Range Interpretation Comme nts POCT PREG (test code = 1605) Negative On board controls acceptable with C Line (test code = 3574) Yes POCT PREG LOT # (test code = 9741) [id number] POCT PREG TEST DATE ( test code = 3576) 08/04/2025 Lab Interpretation (test cod e = 78398-6) Normal [facility], [id number] 04:54:53* Test Item Value Reference Range Interpretation Comme nts PREG SERUM (test code = 2683093306) Negative ZORAIDA (test code = ZORAIDA) Less than 10 IU/L. ?If low titer or ectopic is suspected, resubmit specimen in 48-72 hours. [facility]. Metabolic Panel ([id number])2023-10-27 04:49:57* Test Item Value Reference Range Interpretation Comme nts NA (test code = 0951690282) 139 mmol/L 135-145 K (test code = 2629106008) 4.0 mmol/L 3.5-5.0 CL (test code = 0599797732) 108 mmol/L 98-108 CO2 TOTAL (test code = 2285195682) 25 mmol/L 23-31 AGAP (test code = 9899355551) 6 2-16 BUN (test code = 5040135884) 14 mg/dL 7-23 GLUCOSE (test code = 1820763483) 97 mg/dL 70-110 CREATININE (test code = 2160-0) 0.56 mg/dL 0.50-1.04 TOTAL BILI (test code = 7979252556) 0.7 mg/dL 0.1-1.1 CALCIUM (test code = 8325241493) 8.8 mg/dL 8.6-10.6 T PROTEIN (test code = 5048215208) 8.4 g/dL 6.3-8.2 H ALBUMIN (test code = 0210628569) 4.1 g/dL 3.5-5.0 ALK PHOS (test code = 7023348179) 65 U/L 34-122 ALTv (test code = 1742-6) 21 U/L 5-35 AST(SGOT) (test code = 7767291678) 37 U/L 13-40 eGFR (test code = 37326-4) 134.2 mL/min/1.73m2 CKD-EPI eGFR (2020). Assuming creatinine has been stable day-to-day for at least three months, the eGFR indicates Category G1 (>= 90 mL/min/1.73 m2) Lab Interpretation (test code = 65438-8) Abnormal [facility] with [id number] 04:36:34* Test Item Value Reference Range Interpretation [...] 33.6 g/dL 31.6-35.1 RDW-SD (test code = 93541-1) 43.0 fL 39.0-49.9 RDW-CV (test code = 788-0) 13.5 % 12.0-15.5 PLT (test code = 777-3) 241 166-358 MPV (test code = 83970-2) 12.1 fL 9.5-12.9 NRBC/100 WBC (test code = 8710775660) 0.0 0.0-10.0 NRBC x10^3 (test code = 2824033403) See_Comment [Automated messa ge] The system which generated this result transmitted reference range: 10*3/?L. The reference range was not used to interpret this result as normal/abnormal. GRAN MAT (NEUT) % (test code = 770-8) 67.8 % IMM GRAN % (test code = 4659009306) 0.60 % LYMPH % (test code = 736-9) 21.2 % MONO % (test code = 5905-5) 8.9 % EOS % (test code = 713-8) 1.0 % BASO % (test code = 706-2) 0.5 % GRAN MAT x10^3(ANC) (test code = 6034531322) 8.58 10*3/uL 1.88-7.09 H IMM GRAN x10^3 (test code = 8531703667) 0.07 10*3/uL 0.00-0.06 H LYMPH x10^3 (test code = 731-0) 2.67 10*3/uL 1.32-3.29 MONO x10^3 (test code = 742-7) 1.12 10*3/uL 0.33-0.92 H EOS x10^3 (test code = 711-2) 0.12 10*3/uL 0.03-0.39 BASO x10^3 (test code = 704-7) 0.06 10*3/uL 0.01-0.07 Lab Interpretation (test code = 54472-0) Abnormal [facility] [id number] 04:27:00* Test Item Value Reference Range Interpretation Comme nts POCT PREG (test code = 1605) Negative On board controls acceptable with C Line (test code = 3574) Yes POCT PREG LOT # (test code = 3575) [id number] POCT PREG TEST DATE ( test code = 3576) 10-01-2024 Lab Interpretation (test cod e = 59285-2) Normal [facility]. METABOLIC PANEL (70539)2023-07-17 02:17:29* Test Item Value Reference Range Interpretation Comme nts NA (test code = 1523172098) 140 mmol/L 135-145 K (test code = 5219158790) 3.9 mmol/L 3.5-5.0 CL (test code = 0617126805) 103 mmol/L 98-108 CO2 TOTAL (test code = 0224399672) 29 mmol/L 23-31 AGAP (test code = 1624401116) 8 2-16 BUN (test code = 9346289269) 10 mg/dL 7-23 GLUCOSE (test code = 5207663942) 95 mg/dL 70-110 CREATININE (test code = 7493792533) 0.84 mg/dL 0.50-1.04 TOTAL BILI (test code = 4244994533) 0.3 mg/dL 0.1-1.1 CALCIUM (test code = 7719279545) 9.1 mg/dL 8.6-10.6 T PROTEIN (test code = 1351733815) 8.4 g/dL 6.3-8.2 H ALBUMIN (test code = 2041739346) 4.5 g/dL 3.5-5.0 ALK PHOS (test code = 3777293002) 80 U/L 34-122 ALTv (test code = 1742-6) 16 U/L 5-35 AST(SGOT) (test code = 6096806466) 22 U/L 13-40 eGFR (test code = 33073-9) 102.2 mL/min/1.73m2 CKD-EPI eGFR (2020). Assuming creatinine has been stable day-to-day for at least three months, the eGFR indicates Category G1 (>= 90 mL/min/1.73 m2) Lab Interpretation (test code = 21486-4) Abnormal [facility] WITH [id number] 02:15:48* Test Item Value Reference Range Interpretation Comme nts WBC (test code = 6690-2) 11.54 See_Comment H [Automated [employer] Sharypic] The system which generated this result transmitted reference range: 4.30 - 11.10 10*3/?L. The reference range was not used to interpret this result as normal/abnormal. RBC (test code = 789-8) 4.87 See_Comment [Automated [employer] Sharypic] The system which generated this result transmitted [...] 33.3 g/dL 31.6-35.1 RDW-SD (test code = 34752-5) 42.6 fL 39.0-49.9 RDW-CV (test code = 788-0) 13.2 % 12.0-15.5 PLT (test code = 777-3) 277 See_Comment [Automated messa ge] The system which generated this result transmitted reference range: 166 - 358 10*3/?L. The reference range was not used to interpret this result as normal/abnormal. MPV (test code = 99785-8) 10.5 fL 9.5-12.9 NRBC/100 WBC (test code = 9759341103) 0.0 See_Comment [Automated XOR.MOTORS ssage] The system which generated this result transmitted reference range: 0.0 - 10.0 /100 WBCs. The reference range was not used to interpret this result as normal/abnormal. NRBC x10^3 (test code = 0432069796) See_Comment [Automated messa ge] The system which generated this result transmitted reference range: 10*3/?L. The reference range was not used to interpret this result as normal/abnormal. GRAN MAT (NEUT) % (test code = 770-8) 60.3 % IMM GRAN % (test code = 4940070551) 0.30 % LYMPH % (test code = 736-9) 25.9 % MONO % (test code = 5905-5) 10.8 % EOS % (test code = 713-8) 2.0 % BASO % (test code = 706-2) 0.7 % GRAN MAT x10^3(ANC) (test code = 3325859885) 6.95 10*3/uL 1.88-7.09 IMM GRAN x10^3 (test code = 1176944903) 0.04 10*3/uL 0.00-0.06 LYMPH x10^3 (test code = 731-0) 2.99 10*3/uL 1.32-3.29 MONO x10^3 (test code = 742-7) 1.25 10*3/uL 0.33-0.92 H EOS x10^3 (test code = 711-2) 0.23 10*3/uL 0.03-0.39 BASO x10^3 (test code = 704-7) 0.08 10*3/uL 0.01-0.07 H Lab Interpretation (test code = 51214-7) Abnormal [facility] [id number] 01:53:00* Test Item Value Reference Range Interpretation Comme nts POCT PREG (test code = 1605) Negative On board controls acceptable with C Line (test code = 3574) Yes POCT PREG LOT # (test code = 3575) [id number] POCT PREG TEST DATE ( test code = 3576) 2024-11-29 Lab Interpretation (test cod e = 12678-8) Normal [facility] [id number] 20:06:00* Test Item Value Reference Range Interpretation Comme nts POCT PREG (test code = 1605) Negative On board controls acceptable with C Line (test code = 3574) Yes POCT PREG LOT # (test code = 3575) POCT PREG TEST DATE ( test code = 3576) [facility] URINALYSIS W SPECIFIC [id number] 20:01:00* Test Item Value Reference Range Interpretation [...] U APPEAR (test code = 3267) cloudy [facility] S[facility] (ANGELIC) [id number] 19:07:18 * Test Item Value Reference Range Interpretation Comme [facility] Rubella screen IgG (test code = 5266092647) Positive Negative ZORAIDA (test code = ZORAIDA) Positive - Indicat es the patient was exposed to Rubella through infection or vaccination.Negative - Indicates the patient could be susceptible to Rubella infection.Equivocal - A second specimen should be sent. [facility] S[facility] (ANGELIC) [id number] 19:07:18 * Test Item Value Reference Range Interpretation Comme [facility] Rubella screen IgG (test code = 4197129481) Positive Negative ZORAIDA (test code = ZORAIDA) Positive - Indicat es the patient was exposed to Rubella through infection or vaccination.Negative - Indicates the patient could be susceptible to Rubella infection.Equivocal - A second specimen should be sent. [facility] ONLY - SYPHILIS [id number] 17:26:01* Test Item Value Reference Range Interpretation Comme nts Syphilis IgG/IgM (test code = 92122-8) Non-reactive Non-reactive ZORAIDA (test code = ZORAIDA) Non-reactive - No serologic evidence of T. pallidum infection. Cannot exclude incubating or early syphilis. Submit a second specimen in 2-4 weeks if syphilis is clinically suspected. Equivocal - Further testing to follow. Reactive - Further testing to follow. Lab Interpretation (test code = 99226-3) Normal [facility] ONLY - SYPHILIS [id number] 17:26:01* Test Item Value Reference Range Interpretation Comme nts Syphilis IgG/IgM (test code = 27448-8) Non-reactive Non-reactive ZORAIDA (test code = ZORAIDA) Non-reactive - No serologic evidence of T. pallidum infection. Cannot exclude incubating or early syphilis. Submit a second specimen in 2-4 weeks if syphilis is clinically suspected. Equivocal - Further testing to follow. Reactive - Further testing to follow. Lab Interpretation (test code = 39344-8) Normal [facility]YCOS[facility] HEMOGLOBIN (A1C)2022-12-28 15:57:54* Test Item Value Reference Range Interpretation Comme nts HGB A1C (test code = 4548-4) 5.5 % 4.0-5.7 ZORAIDA (test code = ZORAIDA) Reference RangesNormal: <5.7%Prediabetes: 5.7 - 6.4%Diabetes: > 6.5% Lab Interpretation (test code = 87122-4) Normal [facility]YCOS[facility] HEMOGLOBIN (A1C)2022-12-28 15:57:54* Test Item Value Reference Range Interpretation Comme nts HGB A1C (test code = 4548-4) 5.5 % 4.0-5.7 ZORAIDA (test code = ZORAIDA) Reference RangesNormal: <5.7%Prediabetes: 5.7 - 6.4%Diabetes: > 6.5% Lab Interpretation (test code = 90960-5) Normal [facility] 1/2 AG-AB WITH [id number] 12:20:58* Test Item Value Reference Range Interpretation Comme nts HIV Semi-quantitative (test code = 27260-7) 0.07 Negative ZORAIDA (test code = ZORAIDA) Non-reactive for HIV-1 antigen and HIV-1/HIV-2 antibodies. ?No laboratory evidence of HIV infection. ?Repeat in 2-4 weeks if acute HIV infection is suspected. [facility] 1/2 AG-AB WITH [id number] 12:20:58* Test Item Value Reference Range Interpretation Comme [facility] HIV Semi-quantitative (test code = 90185-1) 0.07 Negative ZORAIDA (test code = ZORAIDA) Non-reactive for HIV-1 antigen and HIV-1/HIV-2 antibodies. ?No laboratory evidence of HIV infection. ?Repeat in 2-4 weeks if acute HIV infection is suspected. [facility] [id number] 09:03:31* Test Item Value Reference Range Interpretation Comme [facility] HCV Ab (test code = 80743-1) Negative HCV Semi-Quantitative (test code = 97211-8) 0.02 [facility] [id number] 09:03:31* Test Item Value Reference Range Interpretation Comme [facility] HCV Ab (test code = 85126-5) Negative HCV Semi-Quantitative (test code = 52923-1) 0.02 [facility] Temple[facility]YROID STIMULATING [id number] 08:28:04 * Test Item Value Reference Range Interpretation Comme nts TSH (test code = 9763105692) 0.99 See_Comment [Automated messa ge] The system which generated this result transmitted reference range: 0.45 - 4.70 mIU/L. The reference range was not used to interpret this result as normal/abnormal. Lab Interpretation (test code = 69020-1) Normal [facility] Temple[facility]YROID STIMULATING [id number] 08:28:04 * Test Item Value Reference Range Interpretation Comme nts TSH (test code = 4043155424) 0.99 See_Comment [Automated messa ge] The system which generated this result transmitted reference range: 0.45 - 4.70 mIU/L. The reference range was not used to interpret this result as normal/abnormal. Lab Interpretation (test code = 61877-2) Normal [facility] WITH [id number] 07:54:04* Test Item Value Reference Range Interpretation [...] 32.7 g/dL 31.6-35.1 RDW-SD (test code = 26727-2) 42.5 fL 39.0-49.9 RDW-CV (test code = 788-0) 13.0 % 12.0-15.5 PLT (test code = 777-3) 232 See_Comment [Automated messa ge] The system which generated this result transmitted reference range: 166 - 358 10*3/?L. The reference range was not used to interpret this result as normal/abnormal. MPV (test code = 01076-2) 11.5 fL 9.5-12.9 NRBC/100 WBC (test code = 2515349236) 0.0 See_Comment [Automated me ssage] The system which generated this result transmitted reference range: 0.0 - 10.0 /100 WBCs. The reference range was not used to interpret this result as normal/abnormal. NRBC x10^3 (test code = 5016682715) See_Comment [Automated messa ge] The system which generated this result transmitted reference range: 10*3/?L. The reference range was not used to interpret this result as normal/abnormal. GRAN MAT (NEUT) % (test code = 770-8) 57.6 % IMM GRAN % (test code = [id number]) 0.20 % LYMPH % (test code = 736-9) 29.9 % MONO % (test code = 5905-5) 8.6 % EOS % (test code = 713-8) 2.7 % BASO % (test code = 706-2) 1.0 % GRAN MAT x10^3(ANC) (test code = [id number]) 5.43 10*3/uL 1.88-7.09 IMM GRAN x10^3 (test code = [id number]) 0.00-0.06 LYMPH x10^3 (test code = 731-0) 2.81 10*3/uL 1.32-3.29 MONO x10^3 (test code = 742-7) 0.81 10*3/uL 0.33-0.92 EOS x10^3 (test code = 711-2) 0.25 10*3/uL 0.03-0.39 BASO x10^3 (test code = 704-7) 0.09 10*3/uL 0.01-0.07 H Lab Interpretation (test code = 14721-1) Abnormal [facility] WITH [id number] 07:54:04* Test Item Value Reference Range Interpretation [...] 32.7 g/dL 31.6-35.1 RDW-SD (test code = 33976-8) 42.5 fL 39.0-49.9 RDW-CV (test code = 788-0) 13.0 % 12.0-15.5 PLT (test code = 777-3) 232 See_Comment [Automated messa ge] The system which generated this result transmitted reference range: 166 - 358 10*3/?L. The reference range was not used to interpret this result as normal/abnormal. MPV (test code = 08531-6) 11.5 fL 9.5-12.9 NRBC/100 WBC (test code = 8035461441) 0.0 See_Comment [Automated XOR.MOTORS ssage] The system which generated this result transmitted reference range: 0.0 - 10.0 /100 WBCs. The reference range was not used to interpret this result as normal/abnormal. NRBC x10^3 (test code = 3531965788) See_Comment [Automated [employer] ge] The system which generated this result transmitted reference range: 10*3/?L. The reference range was not used to interpret this result as normal/abnormal. GRAN MAT (NEUT) % (test code = 770-8) 57.6 % IMM GRAN % (test code = 7830967561) 0.20 % LYMPH % (test code = 736-9) 29.9 % MONO % (test code = 5905-5) 8.6 % EOS % (test code = 713-8) 2.7 % BASO % (test code = 706-2) 1.0 % GRAN MAT x10^3(ANC) (test code = 8322712995) 5.43 10*3/uL 1.88-7.09 IMM GRAN x10^3 (test code = 9478617939) 0.00-0.06 LYMPH x10^3 (test code = 731-0) 2.81 10*3/uL 1.32-3.29 MONO x10^3 (test code = 742-7) 0.81 10*3/uL 0.33-0.92 EOS x10^3 (test code = 711-2) 0.25 10*3/uL 0.03-0.39 BASO x10^3 (test code = 704-7) 0.09 10*3/uL 0.01-0.07 H Lab Interpretation (test code = 96661-5) Abnormal [facility] [id number] 16:47:00* Test Item Value Reference Range Interpretation Comme nts POCT PREG (test code = 1605) Negative On board controls acceptable with C Line (test code = 3574) Yes POCT PREG LOT # (test code = 3575) POCT PREG TEST DATE ( test code = 3576) [facility] [id number] 16:47:00* Test Item Value Reference Range Interpretation Comme nts POCT PREG (test code = 1605) Negative On board controls acceptable with C Line (test code = 3574) Yes POCT PREG LOT # (test code = 3575) POCT PREG TEST DATE ( test code = 3576) [facility] [id number] 04:35:00* Test Item Value Reference Range Interpretation Comme nts POCT PREG (test code = 1605) negative On board controls acceptable with C Line (test code = 3574) present POCT PREG LOT # (test code = 3575) [id number] POCT PREG TEST DATE ( test code = 3576) 2023-11-25 Lab Interpretation (test cod e = 46830-5) [facility]* Test Item Value Reference Range Interpretation Comme nts SURGICAL (test code = SR) R UN DATE: 01/17/22 [facility] PAGE 1 RUN TIME: 1221 Specimen Inquiry RUN USER: INTERFACE P ATIENT: KATRIN PEREZ LOC: [facility] U #: [id number] AGE/SX: 16/F ROOM: RE01/06/22[facility] DR: Facundo Kwon MD : 03 BED: DIS: STATUS: [facility] TLOC: SPEC #: [id number] RECD: 01/09/22 STATUS: JORDAN LEAVITT #: [id number] KI: 01/06/[address] [facility] [address]: Faucndo Kwon MD ENTERED: 01/09/22 SP TYPE: SURGICAL OTHR DR: DOES_NOT KNOW ORDERED: 29046/2, 66412, ANATOMIC SPEC COPIES TO: DOES_NOT KNOW Facundo Kwon MD [address] [place] [address] PROCEDURES: 50407 (01/09/22-715) 29463 (01/10/22-1630) TISSUES: A. DUODENUM BIOPSY B. STOMACH [...] ON NEXT PAGE R UN DATE: 01/17/22 [facility] PAGE 2 RUN TIME: 1221 Specimen Inquiry RUN USER: INTERFACE S PEC #: [id number] PATIENT: KATRIN PEREZ #[id number] (Continued) GROSS DESCRIPTION (Continued) Technical component excluding immunohistochemistry is performed at [facility], [address], [place] [address] Technical component of all immunohistochemistry is performed at [facility], [address], [address], [place] [address] Immunohistochemistry: This test was developed and its [...] 01/17/22 1221 END OF REPORT UR HCG [id number] 12:02:00* Test Item Value Reference Range Interpretation Comme nts UR HCG QUAL (test code = HCGQLU) NEGATIVE This HCGQL test is NOT applicable for MALE patients.Check with nurse about probable order error.If Tumor Marker Test needed, nurse should order test "HCGTU"(Test #550.10374) Notes Date/Time Note Provider Source 2024-09-30 18:14:02 Patient eloped from [facility]. DATION MANAGER Joe Srinivasan RN [facility] 2024-09-30 14:37:43 Pt arrived ambulatory suprapubic pain, and breast pain since 09/08/2024, frequent urination, nausea. LMP 09/03/2024. DATION MANAGER Lynda Laird RN [facility] 2024-05-29 17:41:00 Not in lobby Lynda Mejia RN [facility] 2024-05-29 17:38:00 Not in lobby to discharge [facility] 2024-05-29 16:16:33 Summary: Triage CC: Patient vomited this morning and is late on her period, patient is here for a test PMHx: none PSH:none MEDS:none LMP: 04/19/24 Tetanus: UTD Awake, alert, oriented, resp reg unlabored, skin warm, color appropriate for race, moves all ext without difficulty, amb with out assistance Appears in no distress Shu Singh RN [facility] 2023-10-26 23:53:53 Pt discharged home following ERP eval. Pt given all education and information regarding s/s of worsening condition, the importance of follow up and prescription use and purpose. Pt verbalized understanding. Alert and ambulatory to pov with family. Romero RN [facility] 2023-10-26 21:57:03 Pt given urine cup and placed in the lobby, pt advice to notify nurse with any other concerns or if symptoms worsen. DATION MANAGER [facility] 2023-10-26 21:53:04 Vaginal bleeding that started today with clots, pt states that she has used 4 pads. Pt c/o lower pelvic and lower back pain. Pt states LMP: 10/13/2023 Nassar RN [facility] 2023-09-20 23:01:05 Pt given printed and [...] gait, in no apparent distress Leger RN [facility] 2023-09-20 22:13:39 Pt arrives ambulatory to ED reporting that her lymph nodes are swollen and has been since she was here last time. After review pt was seen here 07/16/2023. She also wanted to be checked for all STD's. DATION MANAGER Heidi Hall RN [facility] 2022-01-06 15:10:00 [facility] ([facility]) Post Anesthesia Evaluation REPORT#:[id number] REPORT STATUS: Signed DATE:01/06/22 TIME: 1510 PATIENT: KATRIN PEREZ UNIT #: [id number] ROOM/BED: : 03 AGE: 16 SEX: F [...] 01/06 141 O2 Delivery Room air 01/06 141 Temp [...] eval prior DC home at 1511 RPT #:[id number] END OF REPORT [facility] 2022-01-06 13:42:00 [id number] [facility] PATIENT NAME: KATRIN PEREZ ADMIT DATE: 01/06/22 ACCOUNT NO: [id number] ROOM NO: AGE: 16 REPORT TYPE: ENDOSCOPY [...] 1:42 PM Procedure Code(s): --- Professional --- 68063, Esophagogastroduodenoscopy, flexible, transoral; with biopsy, single or multiple Diagnosis Code(s): --- Professional --- K29.80, Duodenitis without bleeding R10.13, Epigastric pain K30, Functional dyspepsia CPT copyright 2020 [employer]. All rights reserved. The codes documented in this report are preliminary and upon oss architect review may be revised to meet current compliance requirements. Scope In: Scope Out: Provation {[id number]}. pdf ProVation FT PDF PATIENT NAME: KATRIN PEREZ at 1359 PATIENT NAME: KATRIN PEREZ [facility]
[2024-12-30] MEDS ORDERED: ONDANSETRON 4 MG/2 ML VIAL ONE (07:46)
[2024-12-30] MEDS ORDERED: FAMOTIDINE 20 MG/2 ML VIAL IV ONE (07:46)
[2024-12-30] MEDS ORDERED: NA CHLORIDE 0.9% 1,000 ML ONE (07:47)
--- NOTE | 2024-12-30 07:52 | RAD REPORT ---
EXAM: Right upper quadrant ultrasound. CLINICAL HISTORY: ABD PAIN COMPARISON: None. FINDINGS: Gallbladder: Normal. Bile ducts: No intrahepatic or extrahepatic biliary dilatation. Common bile duct measures 3 mm. Limited imaging of the liver shows no concerning finding. IMPRESSION: Unremarkable exam.
[2024-12-30 08:09] LABS: Absolute Basophils 0.1 K/uL (0-0.5); Absolute Eosinophils 0.1 K/uL (0-0.5); Absolute Lymphocytes (CBC) 2.4 K/uL (0.7-4.9); Basophils % 1.1 % (0-1.3); Eosinophils % 1.6 % (0-4.4); Hemoglobin 13.6 g/dL (12.0-15.0); Lymphocytes % 27.9 % (15.3-44.8); MCH 28.8 pg (27.0-35.0); MCV 84.7 fL (80-100); MPV 10.2 fL (7.6-11.3); Monocytes % 11.7 % (3.3-12.3); Neutrophils % 57.7 % (41.7-73.7); Platelets 174 thou/uL (152-406); RBC Red Blood Cell Count 4.72 M/uL (3.86-4.86); Red Cell Distribution Width 14.8 % (12.1-15.2)
[2024-12-30 08:20] LABS: Specific Gravity 1.027 (1.005-1.030); Urine Bacteria None Seen /HPF (<20); Urine Bilirubin NEGATIVE (Negative); Urine Blood Negative (Negative); Urine Clarity Extremely Turbid (Clear); Urine Color Light-Yellow (Yellow); Urine Culture Reflex Order NOT NEEDED; Urine Glucose NEGATIVE (Negative); Urine Ketones NEGATIVE (Negative); Urine Microscopic Reflex YN ORDER UMIC; Urine Mucus Slight /HPF (None Seen); Urine Nitrite NEGATIVE (Negative); Urine Protein NEGATIVE (Negative); Urine RBC <5 /HPF (None Seen); Urine Urobilinogen Normal (Normal); Urine WBC <5 /HPF (<5); Urine pH 6.5 (5.0-7.0)
[2024-12-30 08:25] LABS: Specific Gravity 1.027 (1.005-1.030)
[2024-12-30] MEDS ORDERED: NA CHLORIDE 0.9% 50 ML ONE (08:44)
[2024-12-30] MEDS ORDERED: CEFTRIAXONE 1000 MG/VIAL ONE (08:44)
--- NOTE | 2024-12-30 09:30 | RAD REPORT ---
EXAMINATION: CT ABDOMEN AND PELVIS WITH CONTRAST CLINICAL INDICATION: ABD PAIN TECHNIQUE: CT abdomen and pelvis was performed, after the administration of IV contrast, as per [facility] protocol. Axial, sagittal and coronal reconstructions were obtained. One or more of the following dose reduction techniques were used: Automated exposure control, adjustment of the mA and k V according to patient size, and iterative reconstruction. Unless otherwise specified, incidental findings do not require dedicated imaging follow-up. COMPARISON: No prior exam. FINDINGS: LOWER CHEST: The visualized lung bases are clear. LIVER: Normal in size and contour. No focal lesion. Grossly unremarkable gallbladder. SPLEEN: Normal size. No focal lesion. PANCREAS: No mass, ductal dilation, or kiran-pancreatic fluid. ADRENALS: Normal; no mass. KIDNEYS: Normal size and contour. No hydronephrosis. GASTROINTESTINAL TRACT: No evidence of free air, significant intra-abdominal free fluid, bowel obstru ction or abscess. APPENDIX: Normal appendix. LYMPH NODES: No lymphadenopathy. MUSCULOSKELETAL: No acute or suspicious osseous abnormality. IMPRESSION: No acute or concerning abnormalities seen in the abdomen or pelvis.
--- NOTE | 2024-12-30 10:02 | ER ---
Nurse's Notes [facility] Name: Lizzie Chase Age: 19 yrs Sex: Female : 2005 Arrival Date: 12/30/2024 Time: 07:03 Bed 13 Private MD: Diagnosis: Abdominal tenderness;UTI/ Urinary tract infection, site not specified Presentation: 12/30 07:28 Chief complaint: Lower abdominal pain and urinary frequency x 5 days. LMP 2 weeks ago. hb Coronavirus screen: At this time, the client does not indicate any symptoms associated with coronavirus-19. Ebola Screen: No symptoms or risks identified at this time. Initial Sepsis Screen: Does the patient meet any 2 criteria? No. Patient's initial sepsis screen is negative. Does the patient have a suspected source of infection? No. Patient's initial sepsis screen is negative. Risk Assessment: Do you want to hurt yourself or someone else? Patient reports no desire to harm self or others. Onset of symptoms was December 26, 2024. 07:28 Method Of Arrival: Ambulatory hb 07:28 Acuity: NACHO 3 hb Historical: - Allergies: 07:31 No Known Allergies; hb - PMHx: 07:31 pre-diabetic; hb - PSHx: 07:31 L knee surgery; hb - Immunization history:: Adult Immunizations up to date. - Infectious Disease History:: Denies. - Social history:: Smoking status: Patient reports the use of cigarette tobacco products. - Family history:: not pertinent. Screenin:59 [facility] ED Fall Risk Assessment (Adult) History of falling in the last 3 months, db including since admission No falls in past 3 months (0 pts) Confusion or Disorientation No (0 pts) Intoxicated or Sedated No (0 pts) Impaired Gait No (0 pts) Mobility Assist Device Used No (0 pt) Altered Elimination No (0 pt) Score/Fall Risk Level 0 - 2 = Low Risk Oriented to surroundings, Maintained a safe environment. Abuse screen: Denies threats or abuse. Denies injuries from another. Nutritional screening: No deficits noted. Tuberculosis screening: No symptoms or risk factors identified. Assessment: 07:50 Reassessment: Patient appears in no apparent distress at this time. Patient and/or db family updated on plan of care and expected duration. Pain level reassessed. Patient is alert, oriented x 3, equal unlabored respirations, skin warm/dry/pink. General: Appears in no apparent distress. comfortable, Behavior is calm, cooperative. Pain: Complains of pain in abdomen and right lower quadrant. Neuro: Level of Consciousness is awake, alert, obeys commands, Oriented to person, place, time, situation. Respiratory: Airway is patent Respiratory effort is even, unlabored, Respiratory pattern is regular, symmetrical. GI: Bowel sounds present X 4 quads. Abd is soft. : Reports urinary frequency, since YESTERDAY. 10:27 Reassessment: Patient appears in no apparent distress at this time. Patient and/or db family updated on plan of care and expected duration. Pain level reassessed. Patient is alert, oriented x 3, equal unlabored respirations, skin warm/dry/pink. Patient states feeling better. Patient states symptoms have improved. Vital Signs: 07:28 BP 122 / 96; Pulse 73; Resp 16; Temp 97.4(O); Pulse Ox 100% on R/A; Weight 72.57 kg; hb Height 4 ft. 11 in. ; Pain 6/10; 07:45 BP 119 / 90; Pulse 72; Resp 16; Pulse Ox 100% on R/A; db 09:55 BP 119 / 72; Pulse 63; Resp 16; Pulse Ox 100% on R/A; db 10:00 BP 116 / 77; Pulse 64; Resp 16; Pulse Ox 100% on R/A; db 07:28 Body Mass Index 32.32 (72.57 kg, 149.86 cm) hb 07:28 Pain Scale: Adult hb ED Course: 07:14 Patient arrived in ED. cj3 07:16 Samuel Stewart MD is Attending Physician. clarence 07:29 Ashley Dai, RN is Primary Nurse. db 07:31 Triage completed. hb 07:31 Arm band placed on. hb 07:40 Abdomen Limited US In Process Unspecified. EDMS 08:17 Accessed peripheral vein via ultrasound, utilizing dynamic ultrasound technique using per hospital protocol. Clean \T\ dry. Dressing intact. Good blood return. Flushes easily. 20g LFA. 08:[address] via wheelchair. db 08:56 CT Abd/Pelvis - IV Contrast Only In Process Unspecified. EDMS 10:00 Patient has correct armband on for positive identification. Bed in low position. Call db light in reach. Side rails up X 1. Warm blanket given. Pillow given. 10:27 Provided Education on: DISCHARGE AND FOLLOWUP. Pulse ox on. NIBP on. db 10:27 No provider procedures requiring assistance completed. IV discontinued, intact, db bleeding controlled, No redness/swelling at site. Administered Medications: 08:20 Drug: NS 0.9% IV 1000 ml IV at 1 bolus Per protocol; to be given as a bolus over 60 db minutes Route: IV; Rate: 1 bolus; Site: left antecubital; 10:23 Follow up: Response: No adverse reaction; IV Status: Completed infusion; IV Intake: db 1000ml 08:25 Drug: Famotidine IVP 20 mg IVP once; dilute with 10 mL 0.9% NaCl; give over 2 minutes db Route: IVP; Site: left forearm; 10:23 Follow up: Response: No adverse reaction db 08:30 Drug: Ondansetron IVP 4 mg IVP once; over 2 minutes Route: IVP; Site: left antecubital; db 10:23 Follow up: Response: No adverse reaction db 08:48 Drug: Rocephin IV 1 grams IV at per protocol once; Given slow IV push per pharmacy db instructions Route: IV; Rate: per protocol; Site: left forearm; 10:23 Follow up: Response: No adverse reaction; IV Status: Completed infusion; IV Intake: 50mldb Medication: 09:59 VIS not applicable for this client. db Intake: 10:23 IV: 50ml; Total: 50ml. db 10:23 IV: 1000ml; Total: 1050ml. db Outcome: 10:02 Discharge ordered by . clarence 10:27 Discharged to home ambulatory, with friend, db 10:27 Condition: stable 10:27 Discharge instructions given to patient, Demonstrated understanding of instructions, follow-up care, Prescriptions given X 4, 10:28 Patient left the ED. db Signatures: Dispatcher [employer] EDSamuel Allen MD MD cha Baxter, Heather, RN RN Ashley Patton, RADHA RN Tamie Zamarripa cj3
--- NOTE | 2024-12-30 10:02 | EDPHYS ---
Physician Documentation [facility] Name: Lizzie Chase Age: 19 yrs Sex: Female : 2005 Arrival Date: 12/30/2024 Time: 07:03 Bed 13 Private MD: ED Physician Samuel Stewart HPI: 12/30 08:05 This 19 yrs old Female presents to ER via Ambulatory with complaints of clarence Abdominal Pain. 08:05 The patient presents with abdominal pain in the lower abdomen. Onset: The clarence symptoms/episode began/occurred 2 day(s) ago. The symptoms do not radiate. Associated signs and symptoms: none. Modifying factors: The symptoms are alleviated by nothing, the symptoms are aggravated by nothing. Severity of pain: At its worst the pain was mild moderate in the emergency department the pain is unchanged. The patient has not experienced similar symptoms in the past. Historical: - Allergies: 07:31 No Known Allergies; hb - PMHx: 07:31 pre-diabetic; hb - PSHx: 07:31 L knee surgery; hb - Immunization history:: Adult Immunizations up to date. - Infectious Disease History:: Denies. - Social history:: Smoking status: Patient reports the use of cigarette tobacco products. - Family history:: not pertinent. ROS: 08:05 Constitutional: Negative for fever, chills, and weight loss, Eyes: Negative for injury, clarence pain, redness, and discharge, ENT: Negative for injury, pain, and discharge, Neck: Negative for injury, pain, and swelling, Cardiovascular: Negative for chest pain, palpitations, and edema, Respiratory: Negative for shortness of breath, cough, wheezing, and pleuritic chest pain, Back: Negative for injury and pain, : Negative for injury, bleeding, discharge, and swelling, MS/Extremity: Negative for injury and deformity, Skin: Negative for injury, rash, and discoloration, Neuro: Negative for headache, weakness, numbness, tingling, and seizure, Psych: Negative for depression, anxiety, suicide ideation, homicidal ideation, and hallucinations, Allergy/Immunology: Negative for hives, rash, and allergies, Endocrine: Negative for neck swelling, polydipsia, polyuria, polyphagia, and marked weight changes, Hematologic/Lymphatic: Negative for swollen nodes, abnormal bleeding, and unusual bruising, 08:05 Abdomen/GI: Positive for abdominal pain, of the right lower quadrant, Exam: 08:05 Constitutional: This is a well developed, well nourished patient who is awake, alert, clarence and in no acute distress. Head/Face: Normocephalic, atraumatic. Eyes: Pupils equal round and reactive to light, extra-ocular motions intact. Lids and lashes normal. Conjunctiva and sclera are non-icteric and not injected. Cornea within normal limits. Periorbital areas with no swelling, redness, or edema. ENT: Nares patent. No nasal discharge, no septal abnormalities noted. Tympanic membranes are normal and external auditory canals are clear. Oropharynx with no redness, swelling, or masses, exudates, or evidence of obstruction, uvula midline. Mucous membranes moist. Neck: Trachea midline, no thyromegaly or masses palpated, and no cervical lymphadenopathy. Supple, full range of motion without nuchal rigidity, or vertebral point tenderness. No Meningismus. Chest/axilla: Normal chest wall appearance and motion. Nontender with no deformity. No lesions are appreciated. Cardiovascular: Regular rate and rhythm with a normal S1 and S2. No gallops, murmurs, or rubs. Normal PMI, no JVD. No pulse deficits. Respiratory: Lungs have equal breath sounds bilaterally, clear to auscultation and percussion. No rales, rhonchi or wheezes noted. No increased work of breathing, no retractions or nasal flaring. Back: No spinal tenderness. No costovertebral tenderness. Full range of motion. Skin: Warm, dry with normal turgor. Normal color with no rashes, no lesions, and no evidence of cellulitis. MS/ Extremity: Pulses equal, no cyanosis. Neurovascular intact. Full, normal range of motion., bilateral aka Neuro: Awake and alert, GCS 15, oriented to person, place, time, and situation. Cranial nerves II-XII grossly intact. Motor strength 5/5 in all extremities. Sensory grossly intact. Cerebellar exam normal. Normal gait. Psych: Awake, alert, with orientation to person, place and time. Behavior, mood, and affect are within normal limits. 08:05 Abdomen/GI: Inspection: abdomen appears normal, Bowel sounds: normal, Palpation: mild abdominal tenderness, in the right lower quadrant, Liver: no appreciated palpable abnormalities, Hernia: not appreciated, Vital Signs: 07:28 BP 122 / 96; Pulse 73; Resp 16; Temp 97.4(O); Pulse Ox 100% on R/A; Weight 72.57 kg; hb Height 4 ft. 11 in. ; Pain 6/10; 07:45 BP 119 / 90; Pulse 72; Resp 16; Pulse Ox 100% on R/A; db 09:55 BP 119 / 72; Pulse 63; Resp 16; Pulse Ox 100% on R/A; db 10:00 BP 116 / 77; Pulse 64; Resp 16; Pulse Ox 100% on R/A; db 07:28 Body Mass Index 32.32 (72.57 kg, 149.86 cm) hb 07:28 Pain Scale: Adult hb MDM: 07:16 Medical Screening Exam initiated clarence 08:07 Differential diagnosis: appendicitis, cholecystitis, Cholelithiasis, gastritis, Pelvic clarence Inflammatory Disease, Pyelonephritis, Ureterolithiasis, urinary tract infection. Data reviewed: vital signs, nurses notes, lab test result(s), radiologic studies, CT scan, ultrasound. Consideration of Admission/Observation Escalation of care including admission/observation considered. I considered the following discharge prescriptions or medication management in the emergency department Medications were administered in the Emergency Department. See MAR. Independent interpretation of the following test(s) in the Emergency Department CT Scan: My interpretation is ct, usg. 12/30 07:18 Order name: CBC with Diff; Complete Time: 08:35 [facility] 12/30 07:18 Order name: CMP [facility] 12/30 07:18 Order name: Lipase [facility] 12/30 07:18 Order name: Test, Urine; Complete Time: 08:35 [facility] 12/30 07:18 Order name: UA Rfx Duy Cult if indicated; Complete Time: 08:35 [facility] 12/30 08:05 Order name: Test, Serum; Complete Time: 10:01 [facility] 12/30 07:18 Order name: Abdomen Limited US; Complete Time: 07:52 [facility] 12/30 07:18 Order name: CT Abd/Pelvis - IV Contrast Only; Complete Time: 10:01 [facility] 12/30 07:18 Order name: IV Saline Lock; Complete Time: 08:40 [facility] 12/30 07:18 Order name: Labs collected and sent; Complete Time: 08:40 [facility] 12/30 08:21 Order name: Labs - recollect needed: recollect green and collect red; Complete Time: bd 08:40 0506 09:09 Order name: Labs - recollect needed: RECOLLECT green top; Complete Time: 09:36 bd Administered Medications: 08:20 Drug: NS 0.9% IV 1000 ml IV at 1 bolus Per protocol; to be given as a bolus over 60 db minutes Route: IV; Rate: 1 bolus; Site: left antecubital; 10:23 Follow up: Response: No adverse reaction; IV Status: Completed infusion; IV Intake: db 1000ml 08:25 Drug: Famotidine IVP 20 mg IVP once; dilute with 10 mL 0.9% NaCl; give over 2 minutes db Route: IVP; Site: left forearm; 10:23 Follow up: Response: No adverse reaction db 08:30 Drug: Ondansetron IVP 4 mg IVP once; over 2 minutes Route: IVP; Site: left antecubital; db 10:23 Follow up: Response: No adverse reaction db 08:48 Drug: Rocephin IV 1 grams IV at per protocol once; Given slow IV push per pharmacy db instructions Route: IV; Rate: per protocol; Site: left forearm; 10:23 Follow up: Response: No adverse reaction; IV Status: Completed infusion; IV Intake: 50mldb Disposition Summary: 12/30/24 10:02 Discharge Ordered Notes: Location: Home clarence Problem: new clarence Symptoms: have improved clarence Condition: Serious clarence Diagnosis - Abdominal tenderness clarence - UTI/ Urinary tract infection, site not specified clarence Followup: clarence - With: Private Physician - When: 2 - 3 days - Reason: Recheck today's complaints, Continuance of care, Re-evaluation by your physician Discharge Instructions: - Discharge Summary Sheet clarence - Abdominal Pain, Adult clarence - Urinary Tract Infection, Adult clarence - Urinary Tract Infection, Adult, [id number] clarence - Abdominal Pain, Adult, [id number] clarence Forms: - Medication Reconciliation Form clarence - Antibiotic Education clarence - Prescription Opioid Use clarence - Patient Portal Instructions clarence - Leadership Thank You Letter clarence - Work release form db - Family Work Release db Prescriptions: - Pepcid 20 mg Oral Tablet - take 1 tablet ORAL route every 12 hours for 10 days; 20 tablet; Refills: 0, clarence Product Selection Permitted - Zofran 4 mg Oral Tablet - take 1 tablet ORAL route every 12 hours As needed; 20 tablet; Refills: 0, [facility] Product Selection Permitted - Bactrim DS 800-160 mg Oral tablet - take 1 tablet ORAL route every 12 hours for 5 days; 10 tablet; Refills: 0, [facility] Product Selection Permitted - dicyclomine 20 mg Oral tablet - take 1 tablet ORAL route 4 times per day; 28 tablet; Refills: 0, Product clarence Selection Permitted Signatures: Dispatcher [employer] Nicolasa May Corey, MD MD cha Baxter, Heather, RN RN hb Benton, Danielle, RN RN db Corrections: (The following items were deleted from the chart) 07:18 07:18 Abdomen Pelvis W [id number] ordered. EDIN EDMS
[2024-12-30 10:13] LABS: Albumin 2.9 g/dL (3.4-5.0); Albumin/Globulin Ratio 0.7 (1.1-1.8); Anion Gap 7.2 mEq/L (5.0-15.0); Bilirubin Total 0.2 mg/dL (0.2-1.0); Potassium 4.2 mEq/L (3.5-5.1); Protein, Total 6.9 g/dL (6.4-8.2)
[2024-12-30 13:20] VITALS: TEMP 97.4; O2SAT 100
[2024-12-30 13:26] VITALS: BP 116/77
== END 2024-12-30 10:28 | disposition home or self-care (01) ==
LOC: ER 07:03
DX: N39.0 Urinary tract infection, site not specified (principal); Z72.0 Tobacco use
CPT/HCPCS: 36415; 74177; 76705; 80053; 81001; 81025; 83690; 84703; 85025; 99285; J0696; J2405; J7030; Q9967

== ENCOUNTER 2025-01-15 20:25 | Emergency (ER) | payer SELFPAY ==
--- OUTSIDE RECORDS SUMMARY | 2025-01-15 20:31 | XMS REPORT | Continuity of Care Document ---
Author Name Unknown Address [address] [place] [address] [facility] [place] Address [address] [place] [address] Care Team Providers Care Asbestos Worker Helper Name Role Phone Nicole Keya GARCIA Primary Care Physician [phone] DIRK HUGGINS Attending Clinician UnavailGERARD Ngo Attending Clinician Unavailable GERARD NOBLES Attending Clinician Unavailable Gerard Suazo Attending Clinician [phone] PHAN RICHARDSON Attending Clinician Unavailable Kristian TERRELL Attending Clinician Unavailable Kristian TERRELL Attending Clinician Unavailable Kristian Denney Attending Clinician [phone] ALAN BAEZA Attending Clinician Unavailable CATRACHITA NGUYEN Attending Clinician Unavail able Doctor Unassigned, [place] Attending Clinician U ROBERTO Alegria Attending Clinician Unavailable Roberto Griffith MD Attending Clinician [phone] Sandi Cardooz NP Attending Clinician [phone] VIANEY GARCIA Attending Clinician Unavailable FAROOQ DAVIS Attending Clinician Unavailable Susan DORAN, Farooq Attending Clinician [phone] Unknown, Attending Attending Clinician Unavailab JOYCE Kumar Attending Clinician UnavailJoyce Fuentes CNM Attending Clinician WENDY JANE Attending Clinician UnavailWENDY Crane Attending Clinician Unavaila jennifer CAMPOSJOLENEYA S Attending Clinician Unavailable Campos PAC, Alexis S Attending Clinician [phone] ANNABELLE JO Attending Clinician Unavailable BANDAR CASTILLO Attending Clinician Unavailable Bandar Castillo MD Attending Clinician [phone] Facundo Kwon Attending Clinician Unavailable Jacques DORAN, Mayra Tony Attending Clinician + [phone] MAYRA SAAVEDRA Attending Clinician Unavailab RENETTA Lam S Attending Clinician Unavailable Renetta Clark S Attending Clinician [phone] , [facility] Attending Clinician Unavailable Annabelle Jo PA-C Attending Clinician [phone] Nurse, [facility] Attending Clinician Un available iVaney Garcia MD Attending Clinician [phone] Samanta Petty MD Attending Clinician [phone] Teri RN, Lucrecia M Attending Clinician Unavailable Belinda Hall DO Attending Clinician [phone] Dirk Huggins MD Attending Clinician [phone] Lab, [facility] Attending Clinician Unavailab niko DORAN Page Attending Clinician [phone] PAGE MEDINA Attending Clinician Unavailable PANKAJ REESE Attending Clinician UnavailMariaa Mccormack NP Attending Clinician [phone] MARIAA RAE Attending Clinician Unavailable DIRK HUGGINS Admitting Clinician UnavailSANDI Vaughan Admitting Clinician Unavailable KNOW, DOES_NOT Admitting Clinician Unavailable Dirk Huggins MD Admitting Clinician [phone] BELINDA HALL Admitting Clinician Unavailab niko Payers Payer Name Policy Type Policy Number Effective Date Expirati on Date Source [place] [facility] [id number] 2020 00:00:00 BETTYE W/ YADY LÓPEZ OOO [id number] 2023 00:00:00 [facility] [id number] 2024 00:00:00 [facility] SHAYLA [facility] [id number] 2023 00:00:00 Problems Condition Name Condition Details Condition Category Status Onset Date Resolution Date Last Treatment Date Treating Clinician Comments Source Obesity (BMI 30-39.9) Obesity (BMI 30-39.9) Disease Active 12-30 00:00: [address] [facility] BMI 29.0-29.9, adult BMI 29.0-29.9, adult Disease Active 12-29 00:00: 00 [facility] Menorrhagi a with irregular cycle Menorrhagi a with irregular cycle Disease Active 11-09 00:00: 00 [facility] Encounter for other general counseling or advice on contracept ion Encounter for other general counseling or advice on contracept ion Disease Resolve d 5-05 00:00: 00 2022-12-30 00:00:00 2022-12-30 11:00:[address] [facility] BMI 29.0-29.9, adult BMI 29.0-29.9, adult Disease Resolve d 5-05 00:00: 00 2022-12-30 00:00:00 2022-12-30 11:00:33 [facility] Vitamin D deficiency Vitamin D deficiency Disease Resolve d -16 00:00: 00 2022-12-30 00:00:00 2022-12-30 11:00:56 [facility] Depo-Prove ra contracept kamran status Depo-Prove ra contracept kamran status Disease Resolve d 3-16 00:00: 00 2022-12-30 00:00:00 2022-12-30 11:00:37 [facility] Acute medial meniscus tear, left, subsequent encounter Acute medial meniscus tear, left, subsequent encounter Disease Resolve d 9-22 00:00: 00 2022-12-30 00:00:00 2022-12-30 11:00:54 Overview: Formattin g of this note might be different from the original. Added automatic ally from request for surgery [id number] [facility] Allergies, Adverse Reactions, Alerts Allergy Name Allergy Type Status Severity Reaction(s) Onset Date Inactive Date Treating Clinician Comments Source No Known Allergie s DA Active U 5-13 00:00: 00 [facility] NO KNOWN ALLERGIE S Drug Class Active [facility] Social History Social Habit Start Date Stop Date Quantity Comments Source [facility] History SDOH Alcohol Comment [place] [facility] Alcoholic beverage intake 2024-05-31 00:00:00 2024-05-31 00:00:00 Lifetime non-drinker (finding) [facility] Alcohol intake 2023-10-26 00:00:00 2023-10-26 00:00:00 Lifetime non-drinker (finding) [facility] Exposure to SARS-CoV-2 (event) 2022-12-26 00:00:00 2023-01-05 08:00:00 Not sure [facility] Tobacco use and exposure 2022-12-27 00:00:00 2022-12-27 00:00:00 Smokeless tobacco non-user [facility] History of Social function 2022-12-27 00:00:00 2022-12-27 00:00:00 [facility] History SDOH Alcohol Frequency 2020-04-05 00:00:00 2020-04-05 00:00:00 1 [facility] History SDOH Alcohol Std Drinks 2020-04-05 00:00:00 2020-04-05 00:00:00 99 [facility] History SDOH Alcohol Binge 2020-04-05 00:00:00 2020-04-05 00:00:00 1 [facility] Sex assigned at 2003 00:00:00 2005 00:00:00 [facility] Smoking Status Start Date Stop Date Source Never smoked tobacco [facility] Medications Ordered Medication Name Filled Medication Name Start Date Stop Date Current Medication? Ordering Clinician Indication Dosage Frequency Signature (SIG) Comments Components Source cefdinir 300 mg capsule 2023-08 00:00: 00 06-09 04:59 :00 No [id number] 300mg Take 1 capsule by mouth every 12 (twelve) hours for 10 days. [facility] ketorolac (TORADOL) injection 30 mg 10-26 06:00: 00 10-26 05:23 :00 No 30mg 30 mg, Slow IV Push, ONCE, 1 dose, On 10/27/23 at 0000, Routine [facility] cefTRIAXone (ROCEPHIN) 1,000 mg in NaCl 0.9% (NS) 100 mL MINI-BAG 10-26 05:15: 00 10-26 05:52 :00 No 1000mg 1,000 mg, IV Piggyback, ONCE, 1 dose, On Sun10/26/23 at 2315, Administer over 30 Minutes, 100 mL
Reas on for Anti-Infec tive: Documented Infection< br>Documen christiano Infection Site: Urine
D uration of Therapy: Other (see Comments) [facility] cefdinir 300 mg capsule 10-25 00:00: 00 11-02 05:59 :00 No [id number] 300mg Take 1 capsule by mouth in the morning and 1 capsule in the evening. Do all this for 7 days. [facility] TAKE 1 TABLET DAILY DIRECTED. 10-16 00:00: 00 Yes [address] Tanner methylPREDN ISolone 4 mg tablets 09-20 00:00: 00 Yes [id number] Take by mouth SEE-INSTRU CTIONS. follow package directions [facility] amoxicillin -clavulanat e 875-125 mg per tablet 09-20 00:00: 00 Yes [id number] 1{tbl} Take 1 tablet by mouth every 12 (twelve) hours. [facility] iopamidol (ISOVUE 370-500 mL) injection 100 mL 2022-08 03:30: 00 07-17 03:30 :00 No [id number] 100mL 100 mL, Intravenou s, ONCE, 1 dose, On Sun07/16/23 at 2130, Routine [facility] methylPREDN ISolone 4 mg tablets 2022-08 00:00: 00 Yes [id number] Take by mouth SEE-INSTRU CTIONS. follow package directions [facility] clindamycin 300 mg capsule 2022-08 00:00: 00 07-27 05:59 :00 No [id number] 300mg Take 1 capsule by mouth 4 (four) times daily for 10 days. [facility] TAKE 2 CAPSULES BY MOUTH IN THE MORNING FOR 10 DAYS 05-17 00:00: 00 Yes Marquis Hart cefdinir 300 mg capsule 05-17 00:00: 00 05-28 04:59 :00 No [id number] 600mg Take 2 capsules by mouth in the morning for 10 days. [facility] DISSOLVE 1 TABLET IN MOUTH EVERY 6 HOURS NEEDED FOR ANXIETY 02-27 00:00: 00 Yes Marquis Hart TAKE 1 TABLET BY MOUTH EVERY 6 HOURS WITH FOOD NEEDED FOR PAIN 02-27 00:00: 00 Yes Marquis Hart TAKE 1 CAPSULE BY MOUTH THREE TIMES A DAY UNTIL FINISHED FOR TOOTH INFECTION 01-17 00:00: 00 Yes Marquis Hart TAKE 1 TABLET BY MOUTH EVERY 6 TO 8 HOURS NEEDED FOR PAIN 01-17 00:00: 00 Yes Marquis Hart acetaminoph en (TYLENOL) tablet 650 mg 01-05 13:15: 00 01-05 13:14 :00 No 650mg 650 mg, Oral, ONCE, 1 dose, On Sun01/05/23 at 0815, ALLI [facility] amoxicillin 500 mg capsule 01-05 00:00: 00 Yes [id number] 500mg Take 1 capsule by mouth in the morning and 1 capsule at noon and 1 capsule in the evening. [facility] ondansetron 4 mg disintegrat ing tablet 01-05 00:00: 00 Yes [id number] 4mg Take 1 tablet by mouth every 4 (four) hours as needed for Nausea and Vomiting (N/V). [facility] TAKE 1 TABLET BY MOUTH IN THE MORNING AND 1 IN THE EVENING WITH MEALS FOR 10 DAYS 01-05 00:00: 00 Yes Marquis Hart TAKE 1 CAPSULE BY MOUTH IN THE MORNING, 1 CAP AT NOON AND 1 CAP IN THE EVENING 01-05 00:00: 00 Yes Marquis Hart DISSOLVE 1 TABLET IN MOUTH EVERY 4 HOURS NEEDED FOR NAUSEA AND VOMITING 01-05 00:00: 00 Yes Marquis Hart naproxen 500 mg tablet 01-05 00:00: 00 01-16 04:59 :00 No [id number] 500mg Take 1 tablet by mouth in the morning and 1 tablet in the evening. Take with meals. Do all this for 10 days. [facility] norethindro ne-e.estrad ioL-iron (MICROGESTI N FE) 1.5 mg-30 mcg (21)/75 mg (7) per tablet 12-27 00:00: 00 Yes [id number] 1{tbl} Take 1 tablet by mouth in the morning. [facility] TAKE 1 TABLET BY MOUTH IN THE MORNING 12-27 00:00: 00 Yes Marquis Hart naproxen (NAPROSYN) 500 mg tablet 09-27 00:00: 00 12-27 00:00 :00 No [id number] 500mg Take 1 tablet by mouth in the morning and 1 tablet in the evening. Take with meals. [facility] ibuprofen (IBU) tablet 800 mg 09-25 04:30: 00 09-25 04:33 :00 No 800mg 800 mg, Oral, ONCE, 1 dose, On 09/24/22 at 2230, ALLI [facility] No known medications 12-29 16:08: 37 No [facility] pantoprazol e 40 mg EC tablet 4-11 00:00: 00 12-29 00:00 :00 No 40mg Take 40 mg by mouth daily. [facility] metroNIDAZO LE 500 mg tablet 3-23 00:00: 00 12-29 00:00 :00 No [id number] 500mg Take 1 tablet by mouth every 12 (twelve) hours. [facility] ergocalcife rol, vitamin d2, 1,250 mcg (50,000 unit) capsule 1-15 00:00: 00 12-29 00:00 :00 No [id number] 18890X Take 1 capsule by mouth weekly. [facility] ranitidine (ZANTAC) 150 mg tablet 2-11 00:00: 00 12-29 00:00 :00 No 150mg Take 1 tablet by mouth 2 (two) times daily. Follow up with your MD for further evaluation and treatment. [facility] Immunizations Ordered Immunization Name Filled Immunization Name Date Status Comments Source [facility] 2022-12-27 00:00:00 Completed [facility] 2022-12-27 00:00:00 Completed [facility] 2022-12-27 00:00:00 Completed [facility] HPV9 2022-12-27 00:00:00 Completed [facility] 2022-12-27 00:00:00 Completed [facility] Meningococcal Polysaccharide (groups A, C, Y and W-135) conjugate vaccine (MCV4P) 2020-03-30 00:00:00 Completed Meningococcal Polysaccharide (groups A, C, Y and W-135) conjugate vaccine (MCV4P) 2020-03-30 00:00:00 Completed Meningococcal Polysaccharide (groups A, C, Y and W-135) conjugate vaccine (MCV4P) 2020-03-30 00:00:00 Completed [facility] Meningococcal Polysaccharide (groups A, C, Y and W-135) conjugate vaccine (MCV4P) 2020-03-30 00:00:00 Completed [facility] Meningococcal Polysaccharide (groups A, C, Y and W-135) conjugate vaccine (MCV4P) 2020-03-30 00:00:00 Completed [facility] HPV9 2016-04-17 00:00:00 Completed Meningococcal Polysaccharide (groups A, C, Y and W-135) conjugate vaccine (MCV4P) 2016-04-17 00:00:00 Completed TDAP 2016-04-17 00:00:00 Completed HPV9 2016-04-17 00:00:00 Completed Meningococcal Polysaccharide (groups A, C, Y and W-135) conjugate vaccine (MCV4P) 2016-04-17 00:00:00 Completed TDAP 2016-04-17 00:00:00 Completed HPV9 2016-04-17 00:00:00 Completed [facility] Meningococcal Polysaccharide (groups A, C, Y and W-135) conjugate vaccine (MCV4P) 2016-04-17 00:00:00 Completed [facility] TDAP 2016-04-17 00:00:00 Completed [facility] HPV9 2016-04-17 00:00:00 Completed [facility] Meningococcal Polysaccharide (groups A, C, Y and W-135) conjugate vaccine (MCV4P) 2016-04-17 00:00:00 Completed [facility] TDAP 2016-04-17 00:00:00 Completed [facility] HPV9 2016-04-17 00:00:00 Completed [facility] Meningococcal Polysaccharide (groups A, C, Y and W-135) conjugate vaccine (MCV4P) 2016-04-17 00:00:00 Completed [facility] TDAP 2016-04-17 00:00:00 Completed [facility] HEPATITIS A 2009-06-30 00:00:00 Completed Varicella (varivax)(chicken pox) 2009-06-30 00:00:00 Completed HEPATITIS A 2009-06-30 00:00:00 Completed Varicella (varivax)(chicken pox) 2009-06-30 00:00:00 Completed HEPATITIS A 2009-06-30 00:00:00 Completed [facility] Varicella (varivax)(chicken pox) 2009-06-30 00:00:00 Completed [facility] HEPATITIS A 2009-06-30 00:00:00 Completed [facility] Varicella (varivax)(chicken pox) 2009-06-30 00:00:00 Completed [facility] HEPATITIS A 2009-06-30 00:00:00 Completed [facility] Varicella (varivax)(chicken pox) 2009-06-30 00:00:00 Completed [facility] DTaP, Unspecified Formulation 2007-06-10 00:00:00 [...] Completed DTaP, Unspecified Formulation 2007-06-10 00:00:00 Completed [facility] HEPATITIS A 2007-06-10 00:00:00 Completed [facility] Hib-HbOC 2007-06-10 00:00:00 Completed [facility] MMR 2007-06-10 00:00:00 Completed [facility] Pneumococcal 7 Conjugate, PCV7 (Prevnar7) 2007-06-10 00:00:00 Completed [facility] IPV 2007-06-10 00:00:00 Completed [facility] DTaP, Unspecified Formulation 2007-06-10 00:00:00 Completed [facility] HEPATITIS A 2007-06-10 00:00:00 Completed [facility] Hib-HbOC 2007-06-10 00:00:00 Completed [facility] MMR 2007-06-10 00:00:00 Completed [facility] Pneumococcal 7 Conjugate, PCV7 (Prevnar7) 2007-06-10 00:00:00 Completed [facility] IPV 2007-06-10 00:00:00 Completed [facility] DTaP, Unspecified Formulation 2007-06-10 00:00:00 Completed [facility] HEPATITIS A 2007-06-10 00:00:00 Completed [facility] Hib-HbOC 2007-06-10 00:00:00 Completed [facility] MMR 2007-06-10 00:00:00 Completed [facility] Pneumococcal 7 Conjugate, PCV7 (Prevnar7) 2007-06-10 00:00:00 Completed [facility] IPV 2007-06-10 00:00:00 Completed [facility] DTaP, Unspecified Formulation 2004-03-30 00:00:00 Completed [facility] HIB 4 Dose Schedule 2004-03-30 00:00:00 Completed MMR 2004-03-30 00:00:00 Completed IPV 2004-03-30 00:00:00 Completed Varicella (varivax)(chicken pox) 2004-03-30 00:00:00 Completed DTaP, Unspecified Formulation 2004-03-30 00:00:00 Completed [facility] HIB 4 Dose Schedule 2004-03-30 00:00:00 Completed MMR 2004-03-30 00:00:00 Completed IPV 2004-03-30 00:00:00 Completed Varicella (varivax)(chicken pox) 2004-03-30 00:00:00 Completed DTaP, Unspecified Formulation 2004-03-30 00:00:00 Completed [facility] HIB 4 Dose Schedule 2004-03-30 00:00:00 Completed [facility] MMR 2004-03-30 00:00:00 Completed [facility] IPV 2004-03-30 00:00:00 Completed [facility] Varicella (varivax)(chicken pox) 2004-03-30 00:00:00 Completed [facility] DTaP, Unspecified Formulation 2004-03-30 00:00:00 Completed [facility] HIB 4 Dose Schedule 2004-03-30 00:00:00 Completed [facility] MMR 2004-03-30 00:00:00 Completed [facility] IPV 2004-03-30 00:00:00 Completed [facility] Varicella (varivax)(chicken pox) 2004-03-30 00:00:00 Completed [facility] DTaP, Unspecified Formulation 2004-03-30 00:00:00 Completed [facility] HIB 4 Dose Schedule 2004-03-30 00:00:00 Completed [facility] MMR 2004-03-30 00:00:00 Completed [facility] IPV 2004-03-30 00:00:00 Completed [facility] Varicella (varivax)(chicken pox) 2004-03-30 00:00:00 Completed [facility] DTaP, Unspecified Formulation 2003 00:00:00 [...] Completed DTaP, Unspecified Formulation 2003 00:00:00 Completed [facility] Hep B, Adol or Pedi Dosage 2003 00:00:00 Completed [facility] HIB 4 Dose Schedule 2003 00:00:00 Completed [facility] Pneumococcal 7 Conjugate, PCV7 (Prevnar7) 2003 00:00:00 Completed [facility] IPV 2003 00:00:00 Completed [facility] DTaP, Unspecified Formulation 2003 00:00:00 Completed [facility] Hep B, Adol or Pedi Dosage 2003 00:00:00 Completed [facility] HIB 4 Dose Schedule 2003 00:00:00 Completed [facility] Pneumococcal 7 Conjugate, PCV7 (Prevnar7) 2003 00:00:00 Completed [facility] IPV 2003 00:00:00 Completed [facility] DTaP, Unspecified Formulation 2003 00:00:00 Completed [facility] Hep B, Adol or Pedi Dosage 2003 00:00:00 Completed [facility] HIB 4 Dose Schedule 2003 00:00:00 Completed [facility] Pneumococcal 7 Conjugate, PCV7 (Prevnar7) 2003 00:00:00 Completed [facility] IPV 2003 00:00:00 Completed [facility] DTaP, Unspecified Formulation 2003 00:00:00 [...] Completed DTaP, Unspecified Formulation 2003 00:00:00 Completed [facility] Hep B, Adol or Pedi Dosage 2003 00:00:00 Completed [facility] HIB 4 Dose Schedule 2003 00:00:00 Completed [facility] Pneumococcal 7 Conjugate, PCV7 (Prevnar7) 2003 00:00:00 Completed [facility] IPV 2003 00:00:00 Completed [facility] DTaP, Unspecified Formulation 2003 00:00:00 Completed [facility] Hep B, Adol or Pedi Dosage 2003 00:00:00 Completed [facility] HIB 4 Dose Schedule 2003 00:00:00 Completed [facility] Pneumococcal 7 Conjugate, PCV7 (Prevnar7) 2003 00:00:00 Completed [facility] IPV 2003 00:00:00 Completed [facility] DTaP, Unspecified Formulation 2003 00:00:00 Completed [facility] Hep B, Adol or Pedi Dosage 2003 00:00:00 Completed [facility] HIB 4 Dose Schedule 2003 00:00:00 Completed [facility] Pneumococcal 7 Conjugate, PCV7 (Prevnar7) 2003 00:00:00 Completed [facility] IPV 2003 00:00:00 Completed [facility] Hep B, Adol or Pedi Dosage 2003 00:00:00 Completed Hep B, Adol or Pedi Dosage 2003 00:00:00 Completed Hep B, Adol or Pedi Dosage 2003 00:00:00 Completed [facility] Hep B, Adol or Pedi Dosage 2003 00:00:00 Completed [facility] Hep B, Adol or Pedi Dosage 2003 00:00:00 Completed [facility] DTaP, Unspecified Formulation Unknown Completed [facility] HEPATITIS A Unknown Completed [facility] Hep B, Adol or Pedi Dosage Unknown Completed [facility] Hib-HbOC Unknown Completed [facility] HIB 4 Dose Schedule Unknown Completed [facility] HPV9 Unknown Completed [facility] Meningococcal Polysaccharide (groups A, C, Y and W-135) conjugate vaccine (MCV4P) Unknown Completed [facility] MMR Unknown Completed [facility] Pneumococcal 7 Conjugate, PCV7 (Prevnar7) Unknown Completed [facility] IPV Unknown Completed [facility] Varicella (varivax)(chicken pox) Unknown Completed [facility] TDAP Unknown Completed [facility] DTaP, Unspecified Formulation Unknown Completed [facility] HEPATITIS A Unknown Completed [facility] Hep B, Adol or Pedi Dosage Unknown Completed [facility] Hib-HbOC Unknown Completed [facility] HIB 4 Dose Schedule Unknown Completed [facility] HPV9 Unknown Completed [facility] Meningococcal Polysaccharide (groups A, C, Y and W-135) conjugate vaccine (MCV4P) Unknown Completed [facility] MMR Unknown Completed [facility] Pneumococcal 7 Conjugate, PCV7 (Prevnar7) Unknown Completed [facility] IPV Unknown Completed [facility] Varicella (varivax)(chicken pox) Unknown Completed [facility] TDAP Unknown Completed [facility] DTaP, Unspecified Formulation Unknown Completed [facility] HEPATITIS A Unknown Completed [facility] Hep B, Adol or Pedi Dosage Unknown Completed [facility] Hib-HbOC Unknown Completed [facility] HIB 4 Dose Schedule Unknown Completed [facility] HPV9 Unknown Completed [facility] Meningococcal Polysaccharide (groups A, C, Y and W-135) conjugate vaccine (MCV4P) Unknown Completed [facility] MMR Unknown Completed [facility] Pneumococcal 7 Conjugate, PCV7 (Prevnar7) Unknown Completed [facility] IPV Unknown Completed [facility] Varicella (varivax)(chicken pox) Unknown Completed [facility] TDAP Unknown Completed [facility] DTaP, Unspecified Formulation Unknown Completed [facility] HEPATITIS A Unknown Completed [facility] Hep B, Adol or Pedi Dosage Unknown Completed [facility] Hib-HbOC Unknown Completed [facility] HIB 4 Dose Schedule Unknown Completed [facility] HPV9 Unknown Completed [facility] Meningococcal Polysaccharide (groups A, C, Y and W-135) conjugate vaccine (MCV4P) Unknown Completed [facility] MMR Unknown Completed [facility] Pneumococcal 7 Conjugate, PCV7 (Prevnar7) Unknown Completed [facility] IPV Unknown Completed [facility] Varicella (varivax)(chicken pox) Unknown Completed [facility] TDAP Unknown Completed [facility] DTaP, Unspecified Formulation Unknown Completed [facility] HEPATITIS A Unknown Completed [facility] Hep B, Adol or Pedi Dosage Unknown Completed [facility] Hib-HbOC Unknown Completed [facility] HIB 4 Dose Schedule Unknown Completed [facility] HPV9 Unknown Completed [facility] Meningococcal Polysaccharide (groups A, C, Y and W-135) conjugate vaccine (MCV4P) Unknown Completed [facility] MMR Unknown Completed [facility] Pneumococcal 7 Conjugate, PCV7 (Prevnar7) Unknown Completed [facility] IPV Unknown Completed [facility] Varicella (varivax)(chicken pox) Unknown Completed [facility] TDAP Unknown Completed [facility] Vital Signs Vital Name Observation Time Observation Value Comments S ource Systolic blood pressure 2024-09-30 20:40:00 125 mm[Hg] [facility] Diastolic blood pressure 2024-09-30 20:40:00 85 mm[Hg] [facility] Heart rate 2024-09-30 20:40:00 78 /min [facility] Body temperature 2024-09-30 20:40:00 36.61 [place] [facility] Respiratory rate 2024-09-30 20:40:00 16 /min [facility] Oxygen saturation in Arterial blood by Pulse oximetry 2024-09-30 20:40:00 97 /min [facility] Body height 2024-09-30 20:37:00 152.4 cm [facility] acute hospital Body weight 2024-09-30 20:37:00 78.245 kg General acute hospital BMI 2024-09-30 20:37:00 33.69 kg/m2 General acute hospital Systolic blood pressure 2024-05-29 21:17:00 135 mm[Hg] [facility] Diastolic blood pressure 2024-05-29 21:17:00 91 mm[Hg] [facility] Heart rate 2024-05-29 21:17:00 102 /min [facility] Body temperature 2024-05-29 21:17:00 36.89 [place] [facility] Respiratory rate 2024-05-29 21:17:00 16 /min [facility] Body height 2024-05-29 21:17:00 152.4 cm [facility] acute hospital Body weight 2024-05-29 21:17:00 79.833 kg General acute hospital BMI 2024-05-29 21:17:00 34.37 kg/m2 General acute hospital Oxygen saturation in Arterial blood by Pulse oximetry 2024-05-29 21:17:00 100 /min [facility] Systolic blood pressure 2023-10-27 03:54:00 135 mm[Hg] [facility] Diastolic blood pressure 2023-10-27 03:54:00 103 mm[Hg] [facility] Heart rate 2023-10-27 03:54:00 95 /min [facility] Body temperature 2023-10-27 03:54:00 36.72 E[place] [facility] Respiratory rate 2023-10-27 03:54:00 18 /min [facility] Body height 2023-10-27 03:54:00 152.4 cm Univ [facility] Body weight 2023-10-27 03:54:00 70.761 kg [facility] BMI 2023-10-27 03:54:00 30.47 kg/m2 General acute hospital Oxygen saturation in Arterial blood by Pulse oximetry 2023-10-27 03:54:00 100 /min [facility] Systolic blood pressure 2023-09-21 04:15:00 120 mm[Hg] [facility] Diastolic blood pressure 2023-09-21 04:15:00 68 mm[Hg] [facility] Heart rate 2023-09-21 04:15:00 93 /min [facility] Body temperature 2023-09-21 04:15:00 36.89 [place] [facility] Respiratory rate 2023-09-21 04:15:00 16 /min [facility] Body height 2023-09-21 04:15:00 152.4 cm [facility] acute hospital Body weight 2023-09-21 04:15:00 70.761 kg General acute hospital BMI 2023-09-21 04:15:00 30.47 kg/m2 General acute hospital Oxygen saturation in Arterial blood by Pulse oximetry 2023-09-21 04:15:00 100 /min [facility] Systolic blood pressure 2023-07-17 03:00:00 122 mm[Hg] [facility] Diastolic blood pressure 2023-07-17 03:00:00 86 mm[Hg] [facility] Heart rate 2023-07-17 03:00:00 73 /min [facility] Respiratory rate 2023-07-17 03:00:00 16 /min [facility] Oxygen saturation in Arterial blood by Pulse oximetry 2023-07-17 03:00:00 100 /min [facility] Body weight 2023-07-17 00:43:00 69.854 kg [facility] BMI 2023-07-17 00:43:00 30.08 kg/m2 General acute hospital Body temperature 2023-07-17 00:43:00 36.78 [place] [facility] Body height 2023-07-17 00:43:00 152.4 cm General acute hospital Systolic blood pressure 2023-05-17 19:58:00 112 mm[Hg] [facility] Diastolic blood pressure 2023-05-17 19:58:00 76 mm[Hg] [facility] Heart rate 2023-05-17 19:58:00 71 /min [facility] Body temperature 2023-05-17 19:58:00 36.61 [place] [facility] Respiratory rate 2023-05-17 19:58:00 16 /min [facility] Body height 2023-05-17 19:58:00 152.4 cm General acute hospital Body weight 2023-05-17 19:58:00 66.225 kg General acute hospital BMI 2023-05-17 19:58:00 28.51 kg/m2 General acute hospital Oxygen saturation in Arterial blood by Pulse oximetry 2023-05-17 19:58:00 98 /min [facility] Body temperature 2023-01-05 14:10:13 37.72 [place] [facility] Systolic blood pressure 2023-01-05 14:00:00 119 mm[Hg] [facility] Diastolic blood pressure 2023-01-05 14:00:00 79 mm[Hg] [facility] Heart rate 2023-01-05 14:00:00 89 /min [facility] Respiratory rate 2023-01-05 14:00:00 15 /min [facility] Oxygen saturation in Arterial blood by Pulse oximetry 2023-01-05 14:00:00 96 /min [facility] Body height 2023-01-05 13:02:00 152.4 cm General acute hospital Body weight 2023-01-05 13:02:00 72.576 kg General acute hospital BMI 2023-01-05 13:02:00 31.25 kg/m2 General acute hospital Systolic blood pressure 2022-12-27 16:46:00 105 mm[Hg] [facility] Diastolic blood pressure 2022-12-27 16:46:00 70 mm[Hg] [facility] Heart rate 2022-12-27 16:46:00 71 /min [facility] Body temperature 2022-12-27 16:46:00 36.78 [place] [facility] Respiratory rate 2022-12-27 16:46:00 18 /min [facility] Body height 2022-12-27 16:46:00 152.4 cm General acute hospital Body weight 2022-12-27 16:46:00 73.539 kg General acute hospital BMI 2022-12-27 16:46:00 31.66 kg/m2 General acute hospital Systolic blood pressure 2022-09-28 02:27:00 133 mm[Hg] [facility] Diastolic blood pressure 2022-09-28 02:27:00 91 mm[Hg] [facility] Heart rate 2022-09-28 02:27:00 94 /min [facility] Body temperature 2022-09-28 02:27:00 37.39 [place] [facility] Respiratory rate 2022-09-28 02:27:00 16 /min [facility] Body height 2022-09-28 02:27:00 152.4 cm General acute hospital Body weight 2022-09-28 02:27:00 68.13 kg General acute hospital BMI 2022-09-28 02:27:00 29.33 kg/m2 General acute hospital Oxygen saturation in Arterial blood by Pulse oximetry 2022-09-28 02:27:00 100 /min [facility] Systolic blood pressure 2022-09-25 03:45:00 124 mm[Hg] [facility] Diastolic blood pressure 2022-09-25 03:45:00 79 mm[Hg] [facility] Heart rate 2022-09-25 03:45:00 81 /min [facility] Body temperature 2022-09-25 03:45:00 36.89 [place] [facility] Respiratory rate 2022-09-25 03:45:00 15 /min [facility] Body height 2022-09-25 03:45:00 152.4 cm General acute hospital Body weight 2022-09-25 03:45:00 68.04 kg General acute hospital BMI 2022-09-25 03:45:00 29.29 kg/m2 General acute hospital Oxygen saturation in Arterial blood by Pulse oximetry 2022-09-25 03:45:00 100 /min [facility] Systolic blood pressure 2021-12-29 20:04:00 134 mm[Hg] [facility] Diastolic blood pressure 2021-12-29 20:04:00 86 mm[Hg] [facility] Heart rate 2021-12-29 20:04:00 76 /min [facility] Body temperature 2021-12-29 20:04:00 36.94 [place] [facility] Respiratory rate 2021-12-29 20:04:00 18 /min [facility] Body height 2021-12-29 20:04:00 152.4 cm General acute hospital Body weight 2021-12-29 20:04:00 68.856 kg General acute hospital BMI 2021-12-29 20:04:00 29.65 kg/m2 General acute hospital Body mass index (BMI) [Percentile] Per age and sex 2021-12-29 20:04:00 93.49 % [facility] Body Temperature 2025-01-05 11:13:00 98.00 degrees Marquis Jairo Hart Heart Rate 2025-01-05 11:13:00 85.00 /min Kimsudheer Hart Respiratory Rate 2025-01-05 11:13:00 16.00 /min Marquis Jairo Hart BP Systolic 2025-01-05 11:13:00 106 mm[Hg] Step hen F Tanner BP Diastolic 2025-01-05 11:13:00 73 mm[Hg] João Hart Weight Measured 2025-01-05 11:13:00 172.40 pounds Marquis Hart Height Measured 2025-01-05 11:13:00 59.00 inches Marquis Hart BP Systolic 2024-07-28 09:33:00 131 mm[Hg] Step hen Jairo Hart BP Diastolic 2024-07-28 09:33:00 65 mm[Hg] João phen F Tanner Weight Measured 2024-07-28 09:33:00 173.60 pounds Marquis Hart Height Measured 2024-07-28 09:33:00 59.00 inches Marquis Jairo Hart Body Temperature 2024-07-28 09:33:00 98.20 degrees Marquis Jairo Hart Heart Rate 2024-07-28 09:33:00 85.00 /min Kim en F Tanner Respiratory Rate 2024-07-28 09:33:00 16.00 /min Marquis Jairo Hart BP Systolic 2023-10-16 16:10:00 118 mm[Hg] Step hen F Tanner BP Diastolic 2023-10-16 16:10:00 82 mm[Hg] João phen Jairo Hart Weight Measured 2023-10-16 16:10:00 155.00 pounds Marquis Hart Height Measured 2023-10-16 16:10:00 59.00 inches Marquis Hart Body Temperature 2023-10-16 16:10:00 97.40 degrees Marquis Hart Heart Rate 2023-10-16 16:10:00 83.00 /min Kim en F Tanner Respiratory Rate 2023-10-16 16:10:00 18.00 /min Marquis Jairo Hart Procedures Procedure Date / Time Performed Performing Clinician Source POCT TEST 2024-09-30 21:32:00 Darion Nobles [facility] URINALYSIS 2024-09-30 21:30:[address] [facility] INFLUENZA A/B RSV COVID NAAT 2024-09-30 21:30:00 Gerard Nobles [facility] URINALYSIS 2024-05-29 21:20:00 Kristian Terrell [facility] POCT TEST 2024-05-29 21:20:00 Kristian Terrell [facility] POCT TEST 2023-10-27 04:27:00 Darion Nobles [facility] TEST, SERUM 2023-10-27 04:26:00 Lory Nobles [facility] COMP. METABOLIC PANEL ([id number]) 2023-10-27 04:26:00 Gerard Nobles [facility] CBC WITH DIFF 2023-10-27 04:26:00 Gerard Nobles [facility] acute hospital URINALYSIS 2023-10-27 04:26:00 Gerard Nobles [facility] CONSENT/REFUSAL FOR DIAGNOSIS AND TREATMENT 2023-10-27 03:50:18 Doctor Unassigned, Haswell [facility] ASSIGNMENT OF BENEFITS 2023-09-28 16:03:04 Docto r Unassigned, Haswell [facility] NOTICE OF PRIVACY PRACTICES 2023-09-21 04:06:10 Doctor Unassigned, Haswell [facility] CONSENT/REFUSAL FOR DIAGNOSIS AND TREATMENT 2023-09-21 04:05:29 Doctor Unassigned, Haswell [facility] RAPID STREP SCREEN FOR GROUP A 2023-07-17 03:07:00 Roberto Griffith [facility] POCT TEST 2023-07-17 01:53:00 Marcelina Cardozo [facility] COMP. METABOLIC PANEL ([id number]) 2023-07-17 01:51:00 Sandi Cardozo [facility] CBC WITH DIFF 2023-07-17 01:51:00 Sandi Cardozo [facility] URINALYSIS 2023-07-17 01:51:00 Sandi Cardozo [facility] EBV-MONONUCLEOSIS SCREEN 2023-07-17 01:51:00 Roberto Griffith [facility] CONSENT/REFUSAL FOR DIAGNOSIS AND TREATMENT 2023-07-17 00:37:35 Doctor Unassigned, Haswell [facility] POCT TEST 2023-05-17 20:06:00 Farooq Davis [facility] POCT URINALYSIS 2023-05-17 20:00:00 Farooq Davis [facility] RAPID STREP SCREEN FOR GROUP A 2023-01-05 13:18:00 Roberto Griffith [facility] RAPID INFLUENZA A/B 2023-01-05 13:09:00 Aminah Griffith [facility] COVID-19 (ID NOW RAPID TESTING) 2023-01-05 13:09:00 Roberto Griffith [facility] THYROID STIMULATING HORMONE 2022-12-27 17:10:00 Joyce Lopez [facility] CBC WITH DIFF 2022-12-27 17:10:00 Joyce Lopez [facility] GLYCOSYLATED HEMOGLOBIN (A1C) 2022-12-27 17:10:00 Joyce Lopez [facility] RUBELLA SCREEN IGG 2022-12-27 17:10:00 Gretchen Lopez [facility] HCV ANTIBODY 2022-12-27 17:10:00 Joyce Lopez [facility] GC & CHLAMYDIA AMPLIFIED ASSAY 2022-12-27 17:10:00 Joyce Lopez [facility] HIV 1/2 AG-AB WITH REFLEX 2022-12-27 17:10:00 Joyce Lopez [facility] SYPHILIS IGG/IGM 2022-12-27 17:10:00 Joyce Lopez [facility] GARDASIL 9 (HPV 9V) VACCINE 2022-12-27 16:53:08 Joyce Lopez [facility] POCT TEST 2022-12-27 16:47:00 Vignesh Lopez [facility] ASSIGNMENT OF BENEFITS 2022-12-27 15:53:31 Docto r Unassigned, Haswell [facility] CONSENT/REFUSAL FOR DIAGNOSIS AND TREATMENT 2022-09-28 02:20:10 Doctor Unassigned, Haswell [facility] POCT TEST 2022-09-25 04:35:00 Bandar Castilol [facility] NOTICE OF PRIVACY PRACTICES 2022-09-25 03:45:44 Doctor Unassigned, Haswell [facility] CONSENT/REFUSAL FOR DIAGNOSIS AND TREATMENT 2022-09-25 03:44:56 Doctor Unassigned, Haswell [facility] Encounters Start Date/Time End Date/Time Encounter Type Admission Type Attending Clinicians Care Facility Care Department Encounter ID Source 2021-06-26 08:58:39 Emergency [facility] [id number] [facility] 2021-06-24 18:43:46 Outpatient DIRK HUGGINS [facility] [id number] [facility] 2025-01-05 10:57:57 2025-01-05 10:57:57 Outpatient SFA [facility] [id number] Marquis Gill Tanner 2025-01-05 00:00:00 2025-01-05 00:00:00 Outpatient Visit [facility] [id number] Marquis Gill Tanner 2024-09-30 14:42:00 2024-09-30 18:18:00 Emergency GERARD CRISTOBAL SHINTA [facility] ERT [id number] [facility] 2024-09-30 14:42:00 2024-09-30 18:18:00 Emergency Gerard Nobles [facility] AT [facility] .2.840.114 350.1.13.10 4.2.7.2.686 [id number] [facility] 2024-07-28 09:45:00 2024-07-28 09:45:00 Outpatient PHAN GARAY [facility] [id number] [facility] 2024-07-28 09:07:05 2024-07-28 09:07:05 Outpatient SFA [facility] [id number] Marquis Gill Tanner 2024-07-28 00:00:00 2024-07-28 00:00:00 Outpatient Visit [facility] [id number] Marquis Hart 2024-05-29 16:19:00 2024-05-29 17:53:00 Emergency X Kristian TERRELL K [facility] ERT [id number] [facility] 2024-05-29 16:19:00 2024-05-29 17:53:00 Emergency Kristian Terrell [facility] 1.2.840.114 350.1.13.10 4.2.7.2.686 [id number] [facility] 2023-11-29 15:30:00 2023-11-29 15:30:00 Outpatient ALAN BAEZA [id number] Yady López 2023-10-26 21:57:00 2023-10-26 23:58:00 Emergency X [facility]ARD NOBLES [facility] [id number] [facility] 2023-10-26 21:57:00 2023-10-26 23:58:00 Emergency Gerard Nobles [facility] 1.840.114 350.1.13.10 4.2.7.2.686 [id number] [facility] 2023-10-16 15:53:57 2023-10-16 15:53:57 Outpatient SFA [facility] [id number] Marquis Gill Tanner 2023-10-16 00:00:00 2023-10-16 00:00:00 Outpatient Visit [facility] [id number] Marquis Hart 2023-09-28 10:15:00 2023-09-28 10:15:00 Outpatient R CATRACHITA NGUYEN [facility] [id number] [facility] 2023-09-28 00:00:00 2023-09-28 00:00:00 Orders Only Doctor Unassigned, Haswell [facility] 1.840.114 350.1.13.10 4.2.7.2.686 [id number] [facility] 2023-09-20 22:18:00 2023-09-20 23:14:00 Emergency X ROBERTO GRIFFITH [facility] ERT [id number] [facility] 2023-09-20 22:18:00 2023-09-20 23:14:00 Emergency Roberto Griffith [facility] 1.840.114 350.1.13.10 4.2.7.2.686 [id number] [facility] 2023-07-16 18:45:00 2023-07-16 22:54:00 Emergency X ROBERTO GRIFFITH [facility] ERT [id number] [facility] 2023-07-16 18:45:00 2023-07-16 22:54:00 Emergency Cas Sandi Roberto Griffith [facility] ..840.114 350.1.13.10 4.2.7.2.686 [id number] [facility] 2023-07-03 14:00:00 2023-07-03 14:00:00 Outpatient R VIANEY GARCIA [facility] [id number] [facility] 2023-05-17 15:00:00 2023-05-17 15:24:56 Outpatient R FAROOQ DAVIS [facility] [id number] [facility] 2023-05-17 15:00:00 2023-05-17 15:20:00 Urgent Care Farooq Daivs Unknown, Attending [facility] ..840.114 350.1.13.10 4.2.7.2.686 [id number] [facility] 2023-03-27 13:30:00 2023-03-27 13:30:00 Outpatient R JOYCE LOPEZ [facility] [id number] [facility] 2023-03-13 00:00:00 2023-03-13 00:00:00 Telephone Joyce Lopez [facility] MUSICAL THERAPIST [facility] 1..840.114 350.1.13.10 4.2.7.2.686 [id number] [facility] 2023-01-05 08:03:00 2023-01-05 09:46:00 Emergency X ROBERTO GRIFFITH [facility] ERT [id number] [facility] 2023-01-05 08:03:00 2023-01-05 09:46:00 Emergency Roberto Griffith [facility] 1.2.840.114 350.1.13.10 4.2.7.2.686 [id number] [facility] 2022-12-27 11:00:00 2022-12-27 12:13:57 Outpatient R JOYCE LOPEZ [facility] [id number] [facility] 2022-12-27 11:00:00 2022-12-27 12:13:57 Office Visit Joyce Lopez [facility] MUSICAL THERAPIST [facility] 1.2840.114 350.1.13.10 4.2.7.2.686 [id number] [facility] 2022-12-27 00:00:00 2022-12-27 00:00:00 Orders Only Doctor Unassigned, Haswell [facility] 1.2840.114 350.1.13.10 4.2.7.2.686 [id number] [facility] 2022-09-27 20:33:00 2022-09-27 21:45:00 Emergency X ALEXIS CAMPOS [facility] ERT [id number] [facility] 2022-09-27 20:33:00 2022-09-27 21:45:00 Emergency Alexis Campos S [facility] 1.2840.114 350.1.13.10 4.2.7.2.686 [id number] [facility] 2022-09-27 10:15:00 2022-09-27 10:15:00 Outpatient ANNABELLE WISE [facility] [id number] [facility] 2022-09-24 21:55:00 2022-09-24 23:00:00 Emergency X BANDAR CASTILLO [facility] ERT [id number] [facility] 2022-09-24 21:55:00 2022-09-24 23:00:00 Emergency Bandar Castillo [facility] 1.2840.114 350.1.13.10 4.2.7.2.686 [id number] [facility] 2022-01-06 09:56:00 2022-01-06 09:56:00 Outpatient Facundo Almanzar [facility] [id number] [facility] 2021-12-30 00:00:00 2021-12-30 00:00:00 Telephone Mayra Saavedra [facility] MUSICAL THERAPIST [facility] 1.840.114 350.1.13.10 4.2.7.2.686 [id number] [facility] 2021-12-29 15:15:00 2021-12-29 15:46:42 Outpatient MAYRA THOMAS [facility] [id number] [facility] 2021-12-29 15:15:00 2021-12-29 15:46:42 Office Visit Mayra Saavedra [facility] MUSICAL THERAPIST [facility]ILD [facility] 1.840.114 350.1.13.10 4.2.7.2.686 [id number] [facility] 2021-12-29 00:00:00 2021-12-29 00:00:00 Orders Only Doctor Unassigned, Haswell [facility] 1.84.114 350.1.13.10 4.2.7.2.686 [id number] [facility] 2021-12-22 09:45:00 2021-12-22 09:45:00 Outpatient RENETTA JULIEN [facility] [id number] [facility] 2021-12-22 09:45:00 2021-12-22 09:45:00 Outpatient R RENETTA COON [facility] [id number] [facility] 2021-12-14 15:00:00 2021-12-14 15:00:00 Outpatient VIANEY RUIZ [facility] [id number] [facility] 2021-12-08 08:53:50 2021-12-08 23:59:00 Outpatient Cecily RENETTA COON [facility] [id number] [facility] 2021-12-08 08:45:00 2021-12-08 10:02:07 [id number] 2021-12-08 08:45:00 2021-12-08 10:02:07 [facility] [id number] [facility] 2021-12-08 08:45:00 2021-12-08 09:00:00 Office Visit Renetta Coon [facility] 1.2.840.114 350.1.13.10 4.2.7.2.686 [id number] [facility] 2021-12-01 14:15:00 2021-12-01 14:15:00 Outpatient RENETTA JULIEN [facility] [id number] [facility] 2021-12-01 14:15:00 2021-12-01 14:15:00 [facility] [id number] [facility] 2021-11-29 09:15:00 2021-11-29 09:30:00 Cage Operator Visit 2, [facility] Annabelle Jo [facility] NAL BUILD[facility] 1.2.840.114 350.1.13.10 4.2.7.2.686 [id number] [facility] 2021-11-29 09:15:00 2021-11-29 09:15:00 Outpatient ANNABELLE WISE [facility] [id number] [facility] 2021-11-29 09:15:00 2021-11-29 09:15:00 Outpatient Cecily JOANNABELLE [facility] [id number] [facility] 2021-11-29 08:30:00 2021-11-29 08:30:00 Office Visit Annabelle Jo [facility] 1.2.840.114 350.1.13.10 4.2.7.2.686 [id number] [facility] 2021-11-24 00:00:00 2021-11-24 00:00:00 Orders Only Doctor Unassigned, Haswell [facility] 1.2.840.114 350.1.13.10 4.2.7.2.686 [id number] [facility] 2021-11-17 15:00:00 2021-11-17 15:00:00 [facility] [id number] 2021-11-09 09:00:00 2021-11-09 09:00:00 Outpatient [facility] [id number] [facility] 2021-09-21 15:30:00 2021-09-21 15:41:13 Nurse Visit Nurse, [facility] Vianey Garcia [facility] 1.2.840.114 350.1.13.10 4.2.7.2.686 [id number] [facility] 2021-09-21 15:30:00 2021-09-21 15:30:00 Outpatient VIANEY RUIZ [facility] [id number] [facility] 2021-09-13 15:30:00 2021-09-13 15:30:00 Outpatient Cecily GARCIA VIANEY [facility] [id number] [facility] 2021-08-03 15:30:00 2021-08-03 15:30:00 Outpatient R [facility] [id number] [facility] 2021-05-11 15:44:35 2021-05-11 16:44:44 Nurse Visit Nurse, [facility] Samanta Petty [facility] Building 1..840.114 350.1.13.10 4.2.7.2.686 [id number] [facility] 2021-05-11 08:00:00 2021-05-11 08:00:00 Outpatient R [facility] [id number] [facility] 2021-05-11 00:00:00 2021-05-11 00:00:00 Orders Only Doctor Unassigned, Haswell [facility] 1.840.114 350.1.13.10 4.2.7.2.686 [id number] [id number] [facility] 2021-05-10 08:00:00 2021-05-10 08:00:00 Outpatient R [facility] [id number] [facility] 2021-05-03 15:00:00 2021-05-03 15:00:00 Outpatient R [facility] [id number] [facility] 2021-04-30 00:00:00 2021-04-30 00:00:00 Nurse Triage Lucrecia Williamson [facility] .840.114 350.1.13.10 4.2.7.2.686 [id number] [id number] [facility] 2021-03-18 15:30:00 2021-03-18 15:30:00 Outpatient R [facility] [id number] [facility] 2021-03-16 14:30:00 2021-03-16 14:30:00 Outpatient R [facility] [id number] [facility] 2021-03-16 00:00:00 2021-03-16 00:00:00 Telephone Vianey Garcia [facility] Building 1..840.114 350.1.13.10 4.2.7.2.686 [id number] [facility] 2021-02-25 10:15:00 2021-02-25 10:15:00 Outpatient RENETTA JULIEN [facility] [id number] [facility] 2021-02-17 15:00:00 2021-02-17 15:00:00 Outpatient RENETTA JULIEN [facility] [id number] [facility] 2021-02-11 10:00:00 2021-02-11 10:00:00 Outpatient Cecily COON [facility] [id number] [facility] 2020-12-15 14:23:49 2020-12-15 14:38:49 Cage Operator Visit 2, [facility] AdumVianey [facility] 1..840.114 350.1.13.10 4.2.7.2.686 [id number] [facility] 2020-12-15 13:51:57 2020-12-15 14:18:57 Nurse Visit Nurse, [facility], [facility] 1.2.840.114 350.1.13.10 4.2.7.2.686 [id number] [facility] 2020-12-15 14:00:00 2020-12-15 14:00:00 Outpatient Cecily GARCIA [facility] [id number] [facility] 2020-12-06 13:30:00 2020-12-06 13:30:00 Outpatient Cecily GARCIA [facility] [id number] [facility] 2020-11-20 17:26:00 2020-11-20 17:37:00 Emergency Belinda Hall [facility] 1..840.114 350.1.13.10 4.2.7.2.686 [id number] [facility] 2020-11-20 00:00:00 2020-11-20 00:00:00 Orders Only Doctor Unassigned, Haswell [facility] 1.2.114 350.1.13.10 4.2.7.2.686 [id number] [facility] 2020-11-16 00:00:00 2020-11-16 00:00:00 Case Management Adum Vianey [facility] 1.84.114 350.1.13.10 4.2.7.2.686 [id number] [facility] 2020-11-09 13:35:56 2020-11-09 15:09:56 Office Visit Adzahida Vianey [facility] 1.84.114 350.1.13.10 4.2.7.2.686 [id number] [facility] 2020-11-09 13:30:00 2020-11-09 13:30:00 Outpatient R JASPREET [facility] [id number] [facility] 2020-11-08 15:45:00 2020-11-08 15:45:00 Outpatient R ANNABELLE JO [facility] [id number] [facility] 2020-11-05 15:00:00 2020-11-05 15:00:00 Outpatient R JASPREET [facility] [id number] [facility] 2020-11-04 14:30:00 2020-11-04 14:30:00 Outpatient R JASPREET [facility] [id number] [facility] 2020-11-02 00:00:00 2020-11-02 00:00:00 Telephone Adzahida Vianey [facility] 1.2840.114 350.1.13.10 4.2.7.2.686 [id number] 134 [id number] [facility] 2020-09-23 00:00:00 2020-09-23 00:00:00 Orders Only Doctor Unassigned, Haswell [facility] 1.2.840.114 350.1.13.10 4.2.7.2.686 [id number] [id number] [facility] 2020-09-15 00:00:00 2020-09-15 00:00:00 Case Management Adum, Vianey Hernandez [facility] 1.2.840.114 350.1.13.10 4.2.7.2.686 [id number] 134 [id number] [facility] 2020-09-10 00:00:00 2020-09-10 00:00:00 Case Management Adzahida, Vianey Hernandez [facility] 1.2.840.114 350.1.13.10 4.2.7.2.686 [id number] 134 [id number] [facility] 2020-09-09 10:14:30 2020-09-09 10:29:30 Cage Operator Visit 2, Adc Lab AdVianey teague [facility] 1.2.840.114 350.1.13.10 4.2.7.2.686 [id number] [facility] 2020-09-09 08:31:02 2020-09-09 09:58:53 Office Visit Vianey Garcia [facility] 1.2.840.114 350.1.13.10 4.2.7.2.686 [id number] [facility] 2020-09-09 09:00:00 2020-09-09 09:00:00 Outpatient R JASPREET VIANEY [facility] [id number] [facility] 2020-09-09 00:00:00 2020-09-09 00:00:00 Orders Only Doctor Unassigned, Haswell [facility] 1.2.840.114 350.1.13.10 4.2.7.2.686 [id number] [id number] [facility] 2020-06-15 00:00:00 2020-06-15 00:00:00 Orders Only Doctor Unassigned, Haswell [facility] 1.2.840.114 350.1.13.10 4.2.7.2.686 [id number] [id number] [facility] 2020-06-07 15:12:17 2020-06-07 15:27:17 Office Visit Renetta Coon [facility] 1.840.114 350.1.13.10 4.2.7.2.686 [id number] [facility] 2020-06-07 15:00:00 2020-06-07 15:00:00 Outpatient RENETTA JULIEN [facility] [id number] [facility] 2020-05-24 05:58:00 2020-05-24 09:24:00 Hospital Encounter Dirk Huggins [facility] 1.84.114 350.1.13.10 4.2.7.2.686 [id number] 071 [id number] [facility] 2020-05-22 13:24:32 2020-05-22 13:44:32 Laboratory Only Lab, Adc Fam Pob Jasmina Medina [facility] 1.84.114 350.1.13.10 4.2.7.2.686 [id number] [facility] 2020-05-22 13:20:00 2020-05-22 13:20:00 Outpatient Cecily MEDINA PAGE [facility] [id number] [facility] 2020-05-21 11:00:00 2020-05-21 11:00:00 Outpatient PANKAJ MYERS [facility] [id number] [facility] 2020-05-17 00:00:00 2020-05-17 00:00:00 Prep For Surgery Dirk Huggins [facility] 1.2.840.114 350.1.13.10 4.2.7.2.686 [id number] [facility] 2020-05-13 11:14:45 2020-05-13 11:39:37 Office Visit Renetta Coon Dirk Huggins [facility] yamilex [place] 1.2.840.114 350.1.13.10 4.2.7.2.686 [id number] [facility] 2020-05-13 11:00:00 2020-05-13 11:00:00 Outpatient R DIRK HUGGINS [facility] [id number] [facility] 2020-05-13 00:00:00 2020-05-13 00:00:00 Letter (Out) Renetta Coon [facility] [place] 1.2.840.114 350.1.13.10 4.2.7.2.686 [id number] [facility] 2020-05-13 00:00:00 2020-05-13 00:00:00 Letter (Out) Renetta Coon [facility] 1.2.840.114 350.1.13.10 4.2.7.2.686 [id number] [facility] 2020-05-05 15:15:00 2020-05-05 23:59:00 Hospital Encounter Dirk Huggins [facility] 1.2.840.114 350.1.13.10 4.2.7.2.686 [id number] [facility] 2020-05-05 00:00:00 2020-05-05 00:00:00 Outpatient R DIRK HUGGINS [facility] [id number] [facility] 2020-04-15 00:00:00 2020-04-15 00:00:00 Orders Only Doctor Unassigned, Haswell [facility] 1.2.840.114 350.1.13.10 4.2.7.2.686 [id number] [id number] [facility] 2020-04-08 00:00:00 2020-04-08 00:00:00 Telephone Dirk Huggins [facility] yamilex [place] 1.2.840.114 350.1.13.10 4.2.7.2.686 [id number] [facility] 2020-04-05 14:45:57 2020-04-05 15:00:57 Office Visit Renetta Coon [facility] y[facility] [place] 1.2.840.114 350.1.13.10 4.2.7.2.686 [id number] [facility] 2020-04-05 15:00:00 2020-04-05 15:00:00 Outpatient RENETTA JULIEN [facility] [id number] [facility] 2020-04-01 14:00:00 2020-04-01 14:00:00 Outpatient RENETTA JULIEN [facility] [id number] [facility] 2020 11:37:49 2020 13:13:00 Emergency Mariaa Rae [facility] 1.284.114 350.1.13.10 4.2.7.2.686 [id number] [facility] 2020 11:37:49 2020 13:13:00 Emergency X MARIAA RAE [facility] [id number] [facility] Results Test Description Test Time Test Comments Results Result Co mments [facility], [facility], IMAGED REFLEX HPV HIGH RISK IF ASC/[id number] 00:00:00* Test Item Value Reference Range Interpretation Comme nts SOURCE: (test code = 8001) Unspecified SLIDES: (test code = 8011) 1 LMP: (test code = 8021) NOT GIVEN SPECIMEN ADEQUACY: (test code = 96017) (NOTE) INTERPRETATION: (test code = 32347) NILM/NO EPITH. ABNORMALITY;SEE BELOW CODING MANAGER: (test code = 8101) Akua Callejas LOCATION: (test code = 77869) (NOTE) CPT: (test code = 8140) 02785 HPV HIGH RISK IF ASC/LSIL, THINPREP (test code = 73733) CRITERIA NOT MET PDFE (test code = PDFReport) PDF Marquis HartHEMOGLOBIN [id number] 00:00:00* Test Item Value Reference Range Interpretation Comme nts HEMOGLOBIN A1c (test code = 97710) 5.7 % Marquis HartCOMPREHENSIVE METABOLIC [id number] 00:00:00* Test Item Value Reference Range Interpretation Comme nts GLUCOSE (test code = 2217) 93 MG/DL BUN (test code = 2208) 11 MG/DL CREATININE (test code = 2214) 0.64 MG/DL eGFR (2020 CKD-EPI) (test code = 62942) 129 ML/MIN/1.73 CALC BUN/CREAT (test code = 2235) 17 RATIO SODIUM (test code = 2231) 139 MEQ/L POTASSIUM (test code = 2228) 4.0 MEQ/L CHLORIDE (test code = 2215) 102 MEQ/L CARBON DIOXIDE (test code = 2206) 24 MEQ/L CALCIUM (test code = 2209) 9.2 MG/DL PROTEIN, TOTAL (test code = 2229) 7.4 G/DL ALBUMIN (test code = 2201) 4.4 G/DL CALC GLOBULIN (test code = 2240) 3.0 G/DL CALC A/G RATIO (test code = 2234) 1.5 RATIO BILIRUBIN, TOTAL (test code = 2207) 0.2 MG/DL ALKALINE PHOSPHATASE (test code = 2204) 99 U/L AST (test code = 2218) 35 U/L ALT (test code = 2219) 33 U/L Marquis HartLIPID [id number] 00:00:00* Test Item Value Reference Range Interpretation Comme nts CHOLESTEROL (test code = 2210) 171 MG/DL TRIGLYCERIDES (test code = 2232) 102 MG/DL HDL CHOLESTEROL (test code = 2220) 30 MG/DL CALC LDL CHOL (test code = 2237) 121 MG/DL RISK RATIO LDL/HDL (test cod e = 2238) 4.03 RATIO Marquis HartHIV 1/2 4TH GEN, RFLX [id number] 00:00:00* Test Item Value Reference Range Interpretation Comme nts HIV 1/2 4TH GEN, RFLX CONF ( test code = 3514) NON-REACTIVE Marquis Gill AustinCT/NG, NAAT, [id number] 00:00:00* Test Item Value Reference Range Interpretation Comme nts CHLAMYDIA, NAAT, URINE (test code = 52685) NEGATIVE GONORRHEA, NAAT, URINE (test code = 27393) NEGATIVE Marquis Gill AustinHEPATITIS PROFILE (A,B,C)2024-07-29 00:00:00* Test Item Value Reference Range Interpretation Comme nts HEPATITIS A TOTAL AB (test c ode = 2725) REACTIVE HEPATITIS B SURF AG (test co de = 2739) NON-REACTIVE HEP B CORE TOTAL AB (test co de = 2729) NON-REACTIVE HEPATITIS B SURFACE AB (test code = 2737) REACTIVE HEPATITIS C ANTIBODY (test c ode = 4675) NON-REACTIVE INTERPRETATION HEPATITIS A: (test code = 2552) (NOTE) INTERPRETATION HEPATITIS B: (test code = 76873) (NOTE) INTERPRETATION HEPATITIS C: (test code = 45932) (NOTE) Marquis HartRPR REFLEX TO T. PALLIDUM - [id number] 00:00:00* Test Item Value Reference Range Interpretation Comme nts RPR (test code = 02043) NON-REACTIVE RPR TITER (test code = 3500) NOT INDIC. TITER Marquis HartHEPATITIS A IgM [REFLEX]2024-07-29 00:00:00* Test Item Value Reference Range Interpretation Comme nts HEPATITIS A IgM (test code = 2728) NON-REACTIVE Marquis Gill TannerPAP TEST, THINPREP, IMAGED REFLEX HPV HIGH RISK IF ASC/LG 2024-07-29 00:00:00* Test Item Value Reference Range Interpretation Comme nts SOURCE: (test code = 8001) Unspecified SLIDES: (test code = 8011) 1 LMP: (test code = 8021) NOT GIVEN SPECIMEN ADEQUACY: (test code = 83500) (NOTE) INTERPRETATION: (test code = 08571) NILM/NO EPITH. ABNORMALITY;SEE BELOW CODING MANAGER: (test code = 8101) Akua Callejas LOCATION: (test code = 72514) (NOTE) CPT: (test code = 8140) 41064 HPV HIGH RISK IF ASC/LSIL, THINPREP (test code = 97053) CRITERIA NOT MET PDFE (test code = PDFReport) PDF Marquis HartHEMOGLOBIN [id number] 00:00:00* Test Item Value Reference Range Interpretation Comme nts HEMOGLOBIN A1c (test code = 57469) 5.7 % Marquis HartCOMPREHENSIVE METABOLIC [id number] 00:00:00* Test Item Value Reference Range Interpretation Comme nts GLUCOSE (test code = 2217) 93 MG/DL BUN (test code = 2208) 11 MG/DL CREATININE (test code = 2214) 0.64 MG/DL eGFR (2020 CKD-EPI) (test code = 14762) 129 ML/MIN/1.73 CALC BUN/CREAT (test code = 2235) 17 RATIO SODIUM (test code = 2231) 139 MEQ/L POTASSIUM (test code = 2228) 4.0 MEQ/L CHLORIDE (test code = 2215) 102 MEQ/L CARBON DIOXIDE (test code = 2206) 24 MEQ/L CALCIUM (test code = 2209) 9.2 MG/DL PROTEIN, TOTAL (test code = 2229) 7.4 G/DL ALBUMIN (test code = 2201) 4.4 G/DL CALC GLOBULIN (test code = 2240) 3.0 G/DL CALC A/G RATIO (test code = 2234) 1.5 RATIO BILIRUBIN, TOTAL (test code = 2207) 0.2 MG/DL ALKALINE PHOSPHATASE (test code = 2204) 99 U/L AST (test code = 2218) 35 U/L ALT (test code = 2219) 33 U/L Marquis HartLIPID [id number] 00:00:00* Test Item Value Reference Range Interpretation Comme nts CHOLESTEROL (test code = 2210) 171 MG/DL TRIGLYCERIDES (test code = 2232) 102 MG/DL HDL CHOLESTEROL (test code = 2220) 30 MG/DL CALC LDL CHOL (test code = 2237) 121 MG/DL RISK RATIO LDL/HDL (test cod e = 2238) 4.03 RATIO Marquis HartHIV 1/2 4TH GEN, RFLX [id number] 00:00:00* Test Item Value Reference Range Interpretation Comme nts HIV 1/2 4TH GEN, RFLX CONF ( test code = 3514) NON-REACTIVE Marquis Gill AustinCT/NG, NAAT, [id number] 00:00:00* Test Item Value Reference Range Interpretation Comme nts CHLAMYDIA, NAAT, URINE (test code = 45854) NEGATIVE GONORRHEA, NAAT, URINE (test code = 90537) NEGATIVE Marquis HartHEPATITIS PROFILE (A,B,C)2024-07-29 00:00:00* Test Item Value Reference Range Interpretation Comme nts HEPATITIS A TOTAL AB (test c ode = 2725) REACTIVE HEPATITIS B SURF AG (test co de = 2739) NON-REACTIVE HEP B CORE TOTAL AB (test co de = 2729) NON-REACTIVE HEPATITIS B SURFACE AB (test code = 2737) REACTIVE HEPATITIS C ANTIBODY (test c ode = 4675) NON-REACTIVE INTERPRETATION HEPATITIS A: (test code = 2552) (NOTE) INTERPRETATION HEPATITIS B: (test code = 85555) (NOTE) INTERPRETATION HEPATITIS C: (test code = 11235) (NOTE) Marquis HartRPR REFLEX TO T. PALLIDUM - [id number] 00:00:00* Test Item Value Reference Range Interpretation Comme nts RPR (test code = 24656) NON-REACTIVE RPR TITER (test code = 3500) NOT INDIC. TITER Marquis HartHEPATITIS A IgM [REFLEX]2024-07-29 00:00:00* Test Item Value Reference Range Interpretation Comme nts HEPATITIS A IgM (test code = 2728) NON-REACTIVE Marquis HartHEMOGLOBIN [id number] 00:00:00* Test Item Value Reference Range Interpretation Comme nts HEMOGLOBIN A1c (test code = 59555) 5.7 % Marquis HartPAP TEST, THINPREP, IMAGED REFLEX HPV HIGH RISK IF ASC/LG 2024-07-29 00:00:00* Test Item Value Reference Range Interpretation Comme nts SOURCE: (test code = 8001) Unspecified SLIDES: (test code = 8011) 1 LMP: (test code = 8021) NOT GIVEN SPECIMEN ADEQUACY: (test code = 83257) (NOTE) INTERPRETATION: (test code = 65427) NILM/NO EPITH. ABNORMALITY;SEE BELOW CODING MANAGER: (test code = 8101) Akua Callejas LOCATION: (test code = 56357) (NOTE) CPT: (test code = 8140) 17018 HPV HIGH RISK IF ASC/LSIL, THINPREP (test code = 59104) CRITERIA NOT MET PDFE (test code = PDFReport) PDF Marquis Gill TannerCOMPREHENSIVE METABOLIC [id number] 00:00:00* Test Item Value Reference Range Interpretation Comme nts GLUCOSE (test code = 2217) 93 MG/DL BUN (test code = 2208) 11 MG/DL CREATININE (test code = 2214) 0.64 MG/DL eGFR (2020 CKD-EPI) (test code = 18244) 129 ML/MIN/1.73 CALC BUN/CREAT (test code = 2235) 17 RATIO SODIUM (test code = 2231) 139 MEQ/L POTASSIUM (test code = 2228) 4.0 MEQ/L CHLORIDE (test code = 2215) 102 MEQ/L CARBON DIOXIDE (test code = 2206) 24 MEQ/L CALCIUM (test code = 2209) 9.2 MG/DL PROTEIN, TOTAL (test code = 2229) 7.4 G/DL ALBUMIN (test code = 2201) 4.4 G/DL CALC GLOBULIN (test code = 2240) 3.0 G/DL CALC A/G RATIO (test code = 2234) 1.5 RATIO BILIRUBIN, TOTAL (test code = 2207) 0.2 MG/DL ALKALINE PHOSPHATASE (test code = 2204) 99 U/L AST (test code = 2218) 35 U/L ALT (test code = 2219) 33 U/L Marquis Jairo TannerLIPID [id number] 00:00:00* Test Item Value Reference Range Interpretation Comme nts CHOLESTEROL (test code = 2210) 171 MG/DL TRIGLYCERIDES (test code = 2232) 102 MG/DL HDL CHOLESTEROL (test code = 2220) 30 MG/DL CALC LDL CHOL (test code = 2237) 121 MG/DL RISK RATIO LDL/HDL (test cod e = 2238) 4.03 RATIO Marquis HartHIV 1/2 4TH GEN, RFLX [id number] 00:00:00* Test Item Value Reference Range Interpretation Comme nts HIV 1/2 4TH GEN, RFLX CONF ( test code = 3514) NON-REACTIVE Marquis HartCT/NG, NAAT, [id number] 00:00:00* Test Item Value Reference Range Interpretation Comme nts CHLAMYDIA, NAAT, URINE (test code = 55041) NEGATIVE GONORRHEA, NAAT, URINE (test code = 57811) NEGATIVE Marquis HartHEPATITIS PROFILE (A,B,C)2024-07-29 00:00:00* Test Item Value Reference Range Interpretation Comme nts HEPATITIS A TOTAL AB (test c ode = 2725) REACTIVE HEPATITIS B SURF AG (test co de = 2739) NON-REACTIVE HEP B CORE TOTAL AB (test co de = 2729) NON-REACTIVE HEPATITIS B SURFACE AB (test code = 2737) REACTIVE HEPATITIS C ANTIBODY (test c ode = 4675) NON-REACTIVE INTERPRETATION HEPATITIS A: (test code = 2552) (NOTE) INTERPRETATION HEPATITIS B: (test code = 40987) (NOTE) INTERPRETATION HEPATITIS C: (test code = 24847) (NOTE) Marquis HartRPR REFLEX TO T. PALLIDUM - [id number] 00:00:00* Test Item Value Reference Range Interpretation Comme nts RPR (test code = 82947) NON-REACTIVE RPR TITER (test code = 3500) NOT INDIC. TITER Marquis HartHEPATITIS A IgM [REFLEX]2024-07-29 00:00:00* Test Item Value Reference Range Interpretation Comme nts HEPATITIS A IgM (test code = 2728) NON-REACTIVE Marquis HartPOCT [id number] 21:20:00* Test Item Value Reference Range Interpretation Comme nts POCT PREG (test code = 1605) Negative On board controls acceptable with C Line (test code = 3574) Yes POCT PREG LOT # (test code = 3575) [id number] POCT PREG TEST DATE ( test code = 3576) 08/04/2025 Lab Interpretation (test cod e = 70222-4) [facility] [id number] 04:54:53* Test Item Value Reference Range Interpretation Comme nts PREG SERUM (test code = 4347671233) Negative ZORAIDA (test code = ZORAIDA) Less than 10 IU/L. ?If low titer or ectopic is suspected, resubmit specimen in 48-72 hours. [facility]. Metabolic Panel (23063)2023-10-27 04:49:57* Test Item Value Reference Range Interpretation Comme nts NA (test code = 0130345336) 139 mmol/L 135-145 K (test code = 1711557525) 4.0 mmol/L 3.5-5.0 CL (test code = 7822113063) 108 mmol/L 98-108 CO2 TOTAL (test code = 2696688031) 25 mmol/L 23-31 AGAP (test code = 2432329708) 6 2-16 BUN (test code = 8101298611) 14 mg/dL 7-23 GLUCOSE (test code = 3000808660) 97 mg/dL 70-110 CREATININE (test code = 2160-0) 0.56 mg/dL 0.50-1.04 TOTAL BILI (test code = 5906932414) 0.7 mg/dL 0.1-1.1 CALCIUM (test code = 2750417560) 8.8 mg/dL 8.6-10.6 T PROTEIN (test code = 3577152516) 8.4 g/dL 6.3-8.2 H ALBUMIN (test code = 4805145870) 4.1 g/dL 3.5-5.0 ALK PHOS (test code = 2591968620) 65 U/L 34-122 ALTv (test code = 1742-6) 21 U/L 5-35 AST(SGOT) (test code = 3777665920) 37 U/L 13-40 eGFR (test code = 99211-9) 134.2 mL/min/1.73m2 CKD-EPI eGFR (2020). Assuming creatinine has been stable day-to-day for at least three months, the eGFR indicates Category G1 (>= 90 mL/min/1.73 m2) Lab Interpretation (test code = 29342-2) [facility]normal [facility] [id number] 04:36:34* Test Item Value Reference Range Interpretation [...] 33.6 g/dL 31.6-35.1 RDW-SD (test code = 49216-2) 43.0 fL 39.0-49.9 RDW-CV (test code = 788-0) 13.5 % 12.0-15.5 PLT (test code = 777-3) 241 166-358 MPV (test code = 51396-9) 12.1 fL 9.5-12.9 NRBC/100 WBC (test code = 0470345685) 0.0 0.0-10.0 NRBC x10^3 (test code = 5028293604) See_Comment [Automated messa ge] The system which generated this result transmitted reference range: 10*3/?L. The reference range was not used to interpret this result as normal/abnormal. GRAN MAT (NEUT) % (test code = 770-8) 67.8 % IMM GRAN % (test code = 6769455499) 0.60 % LYMPH % (test code = 736-9) 21.2 % MONO % (test code = 5905-5) 8.9 % EOS % (test code = 713-8) 1.0 % BASO % (test code = 706-2) 0.5 % GRAN MAT x10^3(ANC) (test code = 8504177181) 8.58 10*3/uL 1.88-7.09 H IMM GRAN x10^3 (test code = 4887774218) 0.07 10*3/uL 0.00-0.06 H LYMPH x10^3 (test code = 731-0) 2.67 10*3/uL 1.32-3.29 MONO x10^3 (test code = 742-7) 1.12 10*3/uL 0.33-0.92 H EOS x10^3 (test code = 711-2) 0.12 10*3/uL 0.03-0.39 BASO x10^3 (test code = 704-7) 0.06 10*3/uL 0.01-0.07 Lab Interpretation (test code = 89618-7) [id number]* Test Item Value Reference Range Interpretation Comme nts POCT PREG (test code = 1605) Negative On board controls acceptable with C Line (test code = 3574) Yes POCT PREG LOT # (test code = 3575) [id number] POCT PREG TEST DATE ( test code = 3576) 10-01-2024 Lab Interpretation (test cod e = 77688-6) Normal [facility]. METABOLIC PANEL (85571)2023-07-17 02:17:29* Test Item Value Reference Range Interpretation Comme nts NA (test code = 9939001911) 140 mmol/L 135-145 K (test code = 3383710830) 3.9 mmol/L 3.5-5.0 CL (test code = 4781444692) 103 mmol/L 98-108 CO2 TOTAL (test code = 0520653208) 29 mmol/L 23-31 AGAP (test code = 9730915125) 8 2-16 BUN (test code = 1978176033) 10 mg/dL 7-23 GLUCOSE (test code = 0913574843) 95 mg/dL 70-110 CREATININE (test code = 3042032665) 0.84 mg/dL 0.50-1.04 TOTAL BILI (test code = 7564261634) 0.3 mg/dL 0.1-1.1 CALCIUM (test code = 4923567031) 9.1 mg/dL 8.6-10.6 T PROTEIN (test code = 4605460913) 8.4 g/dL 6.3-8.2 H ALBUMIN (test code = 9698120023) 4.5 g/dL 3.5-5.0 ALK PHOS (test code = 6822334230) 80 U/L 34-122 ALTv (test code = 1744-6) 16 U/L 5-35 AST(SGOT) (test code = 7696194719) 22 U/L 13-40 eGFR (test code = 14411-7) 102.2 mL/min/1.73m2 CKD-EPI eGFR (2020). Assuming creatinine has been stable day-to-day for at least three months, the eGFR indicates Category G1 (>= 90 mL/min/1.73 m2) Lab Interpretation (test code = 28452-9) Abnormal [facility] WITH [id number] 02:15:48* Test Item Value Reference Range Interpretation Comme nts WBC (test code = 6690-2) 11.54 See_Comment H [Automated [employer]] The system which generated this result transmitted reference range: 4.30 - 11.10 10*3/?L. The reference range was not used to interpret this result as normal/abnormal. RBC (test code = 789-8) 4.87 See_Comment [Automated [employer]] The system which generated this result transmitted [...] 33.3 g/dL 31.6-35.1 RDW-SD (test code = 02453-8) 42.6 fL 39.0-49.9 RDW-CV (test code = 788-0) 13.2 % 12.0-15.5 PLT (test code = 777-3) 277 See_Comment [Automated [employer]] The system which generated this result transmitted reference range: 166 - 358 10*3/?L. The reference range was not used to interpret this result as normal/abnormal. MPV (test code = 60143-7) 10.5 fL 9.5-12.9 NRBC/100 WBC (test code = 1009023643) 0.0 See_Comment [Automated me ssage] The system which generated this result transmitted reference range: 0.0 - 10.0 /100 WBCs. The reference range was not used to interpret this result as normal/abnormal. NRBC x10^3 (test code = 0529280962) See_Comment [Automated messa ge] The system which generated this result transmitted reference range: 10*3/?L. The reference range was not used to interpret this result as normal/abnormal. GRAN MAT (NEUT) % (test code = 770-8) 60.3 % IMM GRAN % (test code = 1461931989) 0.30 % LYMPH % (test code = 736-9) 25.9 % MONO % (test code = 5905-5) 10.8 % EOS % (test code = 713-8) 2.0 % BASO % (test code = 706-2) 0.7 % GRAN MAT x10^3(ANC) (test code = 7498259286) 6.95 10*3/uL 1.88-7.09 IMM GRAN x10^3 (test code = 1120988162) 0.04 10*3/uL 0.00-0.06 LYMPH x10^3 (test code = 731-0) 2.99 10*3/uL 1.32-3.29 MONO x10^3 (test code = 742-7) 1.25 10*3/uL 0.33-0.92 H EOS x10^3 (test code = 711-2) 0.23 10*3/uL 0.03-0.39 BASO x10^3 (test code = 704-7) 0.08 10*3/uL 0.01-0.07 H Lab Interpretation (test code = 02894-9) Abnormal [facility] [id number] 01:53:00* Test Item Value Reference Range Interpretation Comme nts POCT PREG (test code = 1605) Negative On board controls acceptable with C Line (test code = 3574) Yes POCT PREG LOT # (test code = 3575) [id number] POCT PREG TEST DATE ( test code = 3576) 2024-11-29 Lab Interpretation (test cod e = 39720-4) [id number] 20:06:00* Test Item Value Reference Range Interpretation Comme nts POCT PREG (test code = 1605) Negative On board controls acceptable with C Line (test code = 3574) Yes POCT PREG LOT # (test code = 3575) POCT PREG TEST DATE ( test code = 3576) [facility] URINALYSIS W SPECIFIC [id number] 20:01:00* Test Item Value Reference Range Interpretation [...] U APPEAR (test code = 3267) cloudy [facility] [id number] 19:07:18 * Test Item Value Reference Range Interpretation Comme [facility] Rubella screen IgG (test code = 6375218750) Positive Negative ZORAIDA (test code = ZORAIDA) Positive - Indicat es the patient was exposed to Rubella through infection or vaccination.Negative - Indicates the patient could be susceptible to Rubella infection.Equivocal - A second specimen should be sent. [facility] [id number] 19:07:18 * Test Item Value Reference Range Interpretation Comme [facility] Rubella screen IgG (test code = 9744045679) Positive Negative ZORAIDA (test code = ZORAIDA) Positive - Indicat es the patient was exposed to Rubella through infection or vaccination.Negative - Indicates the patient could be susceptible to Rubella infection.Equivocal - A second specimen should be sent. [facility] ONLY - SYPHILIS [id number] 17:26:01* Test Item Value Reference Range Interpretation Comme nts Syphilis IgG/IgM (test code = 94966-9) Non-reactive Non-reactive ZORAIDA (test code = ZORAIDA) Non-reactive - No serologic evidence of T. pallidum infection. Cannot exclude incubating or early syphilis. Submit a second specimen in 2-4 weeks if syphilis is clinically suspected. Equivocal - Further testing to follow. Reactive - Further testing to follow. Lab Interpretation (test code = 17141-3) Normal [facility] ONLY - SYPHILIS [id number] 17:26:01* Test Item Value Reference Range Interpretation Comme nts Syphilis IgG/IgM (test code = 62549-5) Non-reactive Non-reactive ZORAIDA (test code = ZORAIDA) Non-reactive - No serologic evidence of T. pallidum infection. Cannot exclude incubating or early syphilis. Submit a second specimen in 2-4 weeks if syphilis is clinically suspected. Equivocal - Further testing to follow. Reactive - Further testing to follow. Lab Interpretation (test code = 37594-8) [facility]1C)2022-12-28 15:57:54* Test Item Value Reference Range Interpretation Comme nts HGB A1C (test code = 4548-4) 5.5 % 4.0-5.7 ZORAIDA (test code = ZORAIDA) Reference RangesNormal: <5.7%Prediabetes: 5.7 - 6.4%Diabetes: > 6.5% Lab Interpretation (test code = 48919-4) [facility]A1C)2022-12-28 15:57:54* Test Item Value Reference Range Interpretation Comme nts HGB A1C (test code = 4548-4) 5.5 % 4.0-5.7 ZORAIDA (test code = ZORAIDA) Reference RangesNormal: <5.7%Prediabetes: 5.7 - 6.4%Diabetes: > 6.5% Lab Interpretation (test code = 79734-4) [facility]-AB WITH [id number] 12:20:58* Test Item Value Reference Range Interpretation Comme nts HIV Semi-quantitative (test code = 88184-4) 0.07 Negative ZORAIDA (test code = ZORAIDA) Non-reactive for HIV-1 antigen and HIV-1/HIV-2 antibodies. ?No laboratory evidence of HIV infection. ?Repeat in 2-4 weeks if acute HIV infection is suspected. [facility] WITH [id number] 12:20:58* Test Item Value Reference Range Interpretation Comme nts HIV Semi-quantitative (test code = 44507-2) 0.07 Negative ZORAIDA (test code = ZORAIDA) Non-reactive for HIV-1 antigen and HIV-1/HIV-2 antibodies. ?No laboratory evidence of HIV infection. ?Repeat in 2-4 weeks if acute HIV infection is suspected. [facility] [id number] 09:03:31* Test Item Value Reference Range Interpretation Comme nts HCV Ab (test code = 40288-2) Negative HCV Semi-Quantitative (test code = 14138-4) 0.02 [facility] [id number] 09:03:31* Test Item Value Reference Range Interpretation Comme nts HCV Ab (test code = 04732-1) Negative HCV Semi-Quantitative (test code = 80627-4) 0.02 [facility] CenterTHY[facility] STIMULATING [id number] 08:28:04 * Test Item Value Reference Range Interpretation Comme nts TSH (test code = 0688871568) 0.99 See_Comment [Automated messa ge] The system which generated this result transmitted reference range: 0.45 - 4.70 mIU/L. The reference range was not used to interpret this result as normal/abnormal. Lab Interpretation (test code = 93015-7) Normal [facility] [id number] 08:28:04 * Test Item Value Reference Range Interpretation Comme nts TSH (test code = 2255555726) 0.99 See_Comment [Automated messa ge] The system which generated this result transmitted reference range: 0.45 - 4.70 mIU/L. The reference range was not used to interpret this result as normal/abnormal. Lab Interpretation (test code = 88885-1) Normal [facility] WITH [id number] 07:54:04* Test Item Value Reference Range Interpretation [...] 32.7 g/dL 31.6-35.1 RDW-SD (test code = 94409-3) 42.5 fL 39.0-49.9 RDW-CV (test code = 788-0) 13.0 % 12.0-15.5 PLT (test code = 777-3) 232 See_Comment [Automated messa ge] The system which generated this result transmitted reference range: 166 - 358 10*3/?L. The reference range was not used to interpret this result as normal/abnormal. MPV (test code = 68072-1) 11.5 fL 9.5-12.9 NRBC/100 WBC (test code = 6784707851) 0.0 See_Comment [Automated [employer] ssage] The system which generated this result transmitted reference range: 0.0 - 10.0 /100 WBCs. The reference range was not used to interpret this result as normal/abnormal. NRBC x10^3 (test code = 3439396535) See_Comment [Automated messa ge] The system which generated this result transmitted reference range: 10*3/?L. The reference range was not used to interpret this result as normal/abnormal. GRAN MAT (NEUT) % (test code = 770-8) 57.6 % IMM GRAN % (test code = 8059237410) 0.20 % LYMPH % (test code = 736-9) 29.9 % MONO % (test code = 5905-5) 8.6 % EOS % (test code = 713-8) 2.7 % BASO % (test code = 706-2) 1.0 % GRAN MAT x10^3(ANC) (test code = 0547429694) 5.43 10*3/uL 1.88-7.09 IMM GRAN x10^3 (test code = 6926757344) 0.00-0.06 LYMPH x10^3 (test code = 731-0) 2.81 10*3/uL 1.32-3.29 MONO x10^3 (test code = 742-7) 0.81 10*3/uL 0.33-0.92 EOS x10^3 (test code = 711-2) 0.25 10*3/uL 0.03-0.39 BASO x10^3 (test code = 704-7) 0.09 10*3/uL 0.01-0.07 H Lab Interpretation (test code = 67580-3) Abnormal [facility] WITH [id number] 07:54:04* Test Item Value Reference Range Interpretation [...] 32.7 g/dL 31.6-35.1 RDW-SD (test code = 53892-4) 42.5 fL 39.0-49.9 RDW-CV (test code = 788-0) 13.0 % 12.0-15.5 PLT (test code = 777-3) 232 See_Comment [Automated [employer] ge] The system which generated this result transmitted reference range: 166 - 358 10*3/?L. The reference range was not used to interpret this result as normal/abnormal. MPV (test code = 61712-8) 11.5 fL 9.5-12.9 NRBC/100 WBC (test code = 0301865950) 0.0 See_Comment [Automated [employer] ssage] The system which generated this result transmitted reference range: 0.0 - 10.0 /100 WBCs. The reference range was not used to interpret this result as normal/abnormal. NRBC x10^3 (test code = 9209799319) See_Comment [Automated [employer] ge] The system which generated this result transmitted reference range: 10*3/?L. The reference range was not used to interpret this result as normal/abnormal. GRAN MAT (NEUT) % (test code = 770-8) 57.6 % IMM GRAN % (test code = 8858510575) 0.20 % LYMPH % (test code = 736-9) 29.9 % MONO % (test code = 5905-5) 8.6 % EOS % (test code = 713-8) 2.7 % BASO % (test code = 706-2) 1.0 % GRAN MAT x10^3(ANC) (test code = 5056058483) 5.43 10*3/uL 1.88-7.09 IMM GRAN x10^3 (test code = 9153421193) 0.00-0.06 LYMPH x10^3 (test code = 731-0) 2.81 10*3/uL 1.32-3.29 MONO x10^3 (test code = 742-7) 0.81 10*3/uL 0.33-0.92 EOS x10^3 (test code = 711-2) 0.25 10*3/uL 0.03-0.39 BASO x10^3 (test code = 704-7) 0.09 10*3/uL 0.01-0.07 H Lab Interpretation (test code = 19809-8) Abnormal [facility] [id number] 16:47:00* Test Item Value Reference Range Interpretation Comme nts POCT PREG (test code = 1605) Negative On board controls acceptable with C Line (test code = 3574) Yes POCT PREG LOT # (test code = 3575) POCT PREG TEST DATE ( test code = 3576) [facility] [id number] 16:47:00* Test Item Value Reference Range Interpretation Comme nts POCT PREG (test code = 1605) Negative On board controls acceptable with C Line (test code = 3574) Yes POCT PREG LOT # (test code = 3575) POCT PREG TEST DATE ( test code = 3576) [facility] [id number] 04:35:00* Test Item Value Reference Range Interpretation Comme nts POCT PREG (test code = 1605) negative On board controls acceptable with C Line (test code = 3574) present POCT PREG LOT # (test code = 3575) [id number] POCT PREG TEST DATE ( test code = 3576) 2023-11-25 Lab Interpretation (test cod e = 88157-8) [facility] 12:21:00* Test Item Value Reference Range Interpretation Comme nts SURGICAL (test code = SR) R UN DATE: 01/17/22 [place] - Lab PAGE 1 RUN TIME: 1221 Specimen Inquiry RUN USER: INTERFACE P ATIENT: KATRIN PEREZ [facility] [place] [place] #: [id number] AGE/SX: 16/F ROOM: RE01/06/22REG DR: Facundo Kwon MD : 03 BED: DIS: STATUS: [facility] TLOC: SPEC #: [id number] RECD: 01/09/22 STATUS: [facility] #: [id number] KI: 01/06/22 [facility] DR: Facundo Kwon MD ENTERED: 01/09/22 SP TYPE: SURGICAL OTHR DR: DOES_NOT KNOW ORDERED: 79691/2 22132, ANATOMIC SPEC COPIES TO: DOES_NOT KNOW Facundo Kwon MD [address] [facility] [place] [address] PROCEDURES: 48868 (01/09/22) 24001 (01/10/22-1630) TISSUES: A. DUODENUM BIOPSY B. STOMACH [...] NEXT PAGE R UN DATE: 01/17/22 [facility] Lab PAGE 2 RUN TIME: 1221 Specimen Inquiry RUN USER: INTERFACE S TUSHAR #: [id number] PATIENT: KATRIN PEREZ #[id number] (Continued) GROSS DESCRIPTION (Continued) Technical component excluding immunohistochemistry is performed at [facility], [address] [place] [address] Technical component of all immunohistochemistry [facility] at [facility], [address] [place] [address], [address], [place] [address] Immunohistochemistry: This test was developed and its [...] 01/17/22 1221 END OF REPORT UR HCG [id number] 12:02:00* Test Item Value Reference Range Interpretation Comme nts UR HCG QUAL (test code = HCGQLU) NEGATIVE This HCGQL test is NOT applicable for MALE patients.Check with nurse about probable order error.If Tumor Marker Test needed, nurse should order test "HCGTU"(Test #550.21178) Notes Date/Time Note Provider Source Marquis Fung [facility]2025-02-04 18:14:02 [facility] Joe Srinivasan [place] 676365-02-04 14:37:43 Pt arrived ambulatory suprapubic pain, and breast pain since 09/08/2024, frequent urination, nausea. LMP 09/03/2024. R INSPECTOR Lynda Laird [facility]187[facility]93-21 00:00:00 Marquis Fung [facility]2024-10-03 17:41:00 Not in lobby Lynda Mejia [facility]Krpoxy1609-16-34 17:38:00 Not in lobby [facility] 16:16:33 Summary: Triage CC: Patient vomited this morning and is late on her period, patient is here for a test PMHx: none PSH:none MEDS:none LMP: 04/19/24 Tetanus: UTD Awake, alert, oriented, resp reg unlabored, skin warm, color appropriate for race, moves all ext without difficulty, amb with out assistance Appears in no distress Shu Singh [facility]villeQqzmsf1543-21-99 23:53:53 Pt discharged home following ERP eval. Pt given all education and information regarding s/s of worsening condition, the importance of follow up and prescription use and purpose. Pt verbalized understanding. Alert and ambulatory to pov with family. R INSPECTOR Charlie Romero [facility]Lxehzi8554-15-62 21:57:03 Pt given urine cup and placed in the lobby, pt advice to notify nurse with any other concerns or if symptoms worsen. [facility]2024-03-01 21:53:04 Vaginal bleeding that started today with clots, pt states that she has used 4 pads. Pt c/o lower pelvic and lower back pain. Pt states LMP: 10/13/2023 R INSPECTOR Cassandra Nassar [facility]bmxw0204-13-98 00:00:00 Marquis Fung [facility]2024-01-25 23:01:05 Pt given printed and verbal discharge [...] with steady gait, in no apparent distress R INSPECTOR Sulema Leger [facility]tooyw2487-02-82 22:13:39 Pt arrives ambulatory to ED reporting that her lymph nodes are swollen and has been since she was here last time. After review pt was seen here 07/16/2023. She also wanted to be checked for all STD's. Hall [facility]villeXbtiam3871-59-71 15:10:00 [facility] ([facility]) Post Anesthesia Evaluation REPORT#:[id number] REPORT STATUS: Signed DATE:01/06/22 TIME: 1510 PATIENT: KATRIN PEREZ UNIT #: [id number] ROOM/BED: : 03 AGE: 16 SEX: F [...] eval prior DC home at 1511 RPT #:[id number] END OF [id number] 13:42:908309-6696 [facility] PATIENT NAME: KATRIN PEREZ ADMIT DATE: 01/06/22 ACCOUNT NO: [id number] ROOM NO: AGE: 16 REPORT TYPE: ENDOSCOPY [...] 1:42 PM Procedure Code(s): --- Professional --- 37599, Esophagogastroduodenoscopy, flexible, transoral; with biopsy, single or multiple Diagnosis Code(s): --- Professional --- K29.80, Duodenitis without bleeding R10.13, Epigastric pain K30, Functional dyspepsia CPT copyright 2020 [employer]. All rights reserved. The codes documented in this report are preliminary and upon billing and quality technician review may be revised to meet current compliance requirements. Scope In: Scope Out: Provation {[id number]}.pdf ProVation FT PDF PATIENT NAME: KATRIN PEREZ at 1359 PATIENT NAME: KATRIN PEREZ
[2025-01-15] MEDS ORDERED: ACETAMINOPHEN 500 MG TAB ONE (21:37)
--- NOTE | 2025-01-15 22:08 | RAD REPORT ---
EXAMINATION: XR LEFT KNEE CLINICAL INDICATION: PAIN TECHNIQUE: Multiple projections of the left knee were obtained. COMPARISON: No prior exam. FINDINGS: No fracture or dislocation seen. Trace suprapatellar joint effusion.
--- NOTE | 2025-01-15 22:22 | EDPHYS ---
Physician Documentation [facility] Name: Lizzie Chase Age: 20 yrs Sex: Female : 2005 Arrival Date: 01/15/2025 Time: 20:25 Bed 10 Private MD: ED Physician Adin Lewis HPI: 01/16 04:16 This 20 yrs old Female presents to ER via EMS with complaints of Knee Injury. rt 04:16 Patient presents to the ED with pain to the left knee. Patient had a previous surgery rt to the knee, states that she felt a pop to the knee and had pain to the area. Worse with walking. Denies other injury, acute complaints, symptoms are moderate in severity, aching nature, nonradiating, no other aggravating alleviating factors.. Historical: - Allergies: 01/15 21:21 No Known Allergies; ha1 - PMHx: 21:21 pre-diabetic; ha1 - PSHx: 21:21 L knee surgery; ha1 - Immunization history:: Adult Immunizations up to date. - Infectious Disease History:: Denies. - Social history:: Smoking status: Patient denies any tobacco usage or history of. - Family history:: not pertinent. ROS: 01/16 04:16 Constitutional: Negative for fever, chills, and weight loss, Cardiovascular: Negative rt for chest pain, palpitations, and edema, Respiratory: Negative for shortness of breath, cough, wheezing, and pleuritic chest pain, Abdomen/GI: Negative for abdominal pain, nausea, vomiting, diarrhea, and constipation, MS/Extremity: Negative for injury and deformity, MS/extremity: Positive for pain, Negative for deformity, Exam: 04:16 Constitutional: This is a well developed, well nourished patient who is awake, alert, rt and in no acute distress. Head/Face: Normocephalic, atraumatic. Chest/axilla: Normal chest wall appearance and motion. Nontender with no deformity. No lesions are appreciated. Cardiovascular: Regular rate and rhythm with a normal S1 and S2. No gallops, murmurs, or rubs. Normal PMI, no JVD. No pulse deficits. Respiratory: Lungs have equal breath sounds bilaterally, clear to auscultation and percussion. No rales, rhonchi or wheezes noted. No increased work of breathing, no retractions or nasal flaring. Abdomen/GI: Soft, non-tender, with normal bowel sounds. No distension or tympany. No guarding or rebound. No evidence of tenderness throughout. 04:16 Musculoskeletal/extremity: Mild tenderness, swelling to the left knee, skin is intact, no erythema, pulses, motor, sensation intact. Vital Signs: 01/15 20:26 BP 142 / 85; Pulse 101; Resp 17 S; Temp 97(O); Pulse Ox 100% on R/A; Weight 81.19 kg; ha1 Height 5 ft. 7 in. ; Pain 10/; 23:00 BP 127 / 84; Pulse 98; Resp 17 S; Pulse Ox 100% on R/A; ha1 20:26 Body Mass Index 28.04 (81.19 kg, 170.18 cm) ha1 20:26 Pain Scale: Adult ha1 MDM: 20:31 Medical Screening Exam initiated rt 01/16 04:16 Differential Diagnosis Fracture, soft tissue injury. Data reviewed: vital signs, nurses rt notes, radiologic studies. Independent interpretation of the following test(s) in the Emergency Department X-Ray: My interpretation is No fracture seen on my interpretation of x-ray images. Counseling: I had a detailed discussion with the patient and/or guardian regarding the historical points, exam findings, and any diagnostic results supporting the discharge/admit diagnosis, radiology results, the need for outpatient follow up. Response to treatment: the patient's symptoms have mildly improved after treatment. 01/15 20:37 Order name: Knee Left 3 View XRAY; Complete Time: 22:10 rt 01/15 22:20 Order name: Knee Immobilizer; Complete Time: 23:34 rt 01/15 22:20 Order name: Crutches; Complete Time: 23:34 rt Administered Medications: 01/15 21:45 Drug: Acetaminophen PO 1000 mg PO once Route: PO; 1 22:30 Follow up: Response: No adverse reaction; Marked relief of symptoms; Pain is decreased ha1 Disposition Summary: 01/15/25 22:21 Discharge Ordered Notes: Location: Home rt Problem: new rt Symptoms: have improved rt Condition: Stable rt Diagnosis - Pain in left knee rt Followup: rt - With: Dirk Rodriguez MD - When: 2 - 3 days - Reason: Discharge Instructions: - Discharge Summary Sheet rt - Acute Knee Pain, Adult rt Forms: - Medication Reconciliation Form rt - Antibiotic Education rt - Prescription Opioid Use rt - Patient Portal Instructions rt - Leadership Thank You Letter rt Signatures: Dispatcher [employer] Fany Castellano RN RN ha1 Adin Lewis MD MD rt
--- NOTE | 2025-01-15 22:22 | ER ---
Nurse's Notes [facility] Name: Lizzie Chase Age: 20 yrs Sex: Female : 2005 Arrival Date: 01/15/2025 Time: 20:25 Bed 10 Private MD: Diagnosis: Pain in left knee Presentation: 01/15 20:26 Chief complaint: EMS states: FELL COMING DOWN THE STAIRS PAIN AND SWELLING ON THE LEFT ha1 KNEE. PREVIOUS INJURED ON THE LEFT KNEE ON 2015. 20:26 Coronavirus screen: Client denies travel out of the [place] in the last 14 days. Ebola ha1 Screen: No symptoms or risks identified at this time. Initial Sepsis Screen: Does the patient meet any 2 criteria? No. Patient's initial sepsis screen is negative. Does the patient have a suspected source of infection? No. Patient's initial sepsis screen is negative. Risk Assessment: Do you want to hurt yourself or someone else? Patient reports no desire to harm self or others. Onset of symptoms was January 15, 2025. 20:26 Method Of Arrival: EMS: [facility] ha1 20:26 Acuity: NACHO 3 ha1 Triage Assessment: 20:26 General: Appears uncomfortable, Behavior is calm, cooperative. Pain: Complains of pain ha1 in medial aspect of left knee Pain radiates to lateral aspect of left knee Pain currently is 10 out of 10 on a pain scale. Neuro: Level of Consciousness is awake, alert, obeys commands, Oriented to person, place, time, situation. Cardiovascular: Capillary refill < 3 seconds Patient's skin is warm and dry. Respiratory: Airway is patent Respiratory effort is even, unlabored, Respiratory pattern is regular, symmetrical. GI: No signs and/or symptoms were reported involving the gastrointestinal system. Abdomen is round non-distended. Musculoskeletal: Capillary refill < 3 seconds, Reports pain in lateral aspect of left knee. Historical: - Allergies: 21:21 No Known Allergies; ha1 - PMHx: 21:21 pre-diabetic; ha1 - PSHx: 21:21 L knee surgery; ha1 - Immunization history:: Adult Immunizations up to date. - Infectious Disease History:: Denies. - Social history:: Smoking status: Patient denies any tobacco usage or history of. - Family history:: not pertinent. Screenin:00 [facility] ED Fall Risk Assessment (Adult) History of falling in the last 3 months, ha1 including since admission Yes- single mechanical fall (1 pt) Confusion or Disorientation No (0 pts) Intoxicated or Sedated No (0 pts) Impaired Gait Yes (1 pt) Mobility Assist Device Used Yes (1 pt) Altered Elimination No (0 pt) Score/Fall Risk Level 3 or more points = High Risk Oriented to surroundings, Maintained a safe environment, Educated pt \T\ family on fall prevention, incl call for assistance when getting out of bed, Hourly rounding (assess needs \T\ fall precautionary measures) done. Abuse screen: Denies threats or abuse. Denies injuries from another. Nutritional screening: No deficits noted. Tuberculosis screening: No symptoms or risk factors identified. Assessment: 20:30 Reassessment: SEE TRIAGE ASSESSMENT. ha1 21:00 Reassessment: Patient and/or family updated on plan of care and expected duration. Pain ha1 level reassessed. Patient is alert, oriented x 3, equal unlabored respirations, skin warm/dry/pink. 22:00 Reassessment: Patient and/or family updated on plan of care and expected duration. Pain ha1 level reassessed. Patient is alert, oriented x 3, equal unlabored respirations, skin warm/dry/pink. 23:00 Reassessment: AWAITING ON TRANSPORTATION. ha1 Vital Signs: 20:26 BP 142 / 85; Pulse 101; Resp 17 S; Temp 97(O); Pulse Ox 100% on R/A; Weight 81.19 kg; ha1 Height 5 ft. 7 in. ; Pain 10/10; 23:00 BP 127 / 84; Pulse 98; Resp 17 S; Pulse Ox 100% on R/A; ha1 20:26 Body Mass Index 28.04 (81.19 kg, 170.18 cm) ha1 20:26 Pain Scale: Adult ha1 ED Course: 20:26 Patient arrived in ED. [id number] 20:26 Patient has correct armband on for positive identification. Placed in gown. Bed in low ha1 position. Call light in reach. Side rails up X2. 20:26 Provided Education on: PLAN OF CARE . ha1 20:26 Arm band placed on right wrist. ha1 20:29 Adin Lewis MD is Attending Physician. rt 21:21 Triage completed. ha1 21:33 Fany Quiroz RN is Primary Nurse. ha1 22:03 Knee Left 3 View XRAY In Process Unspecified. EDMS 22:21 Dirk Rodriguez MD is Referral Physician. rt 23:36 No provider procedures requiring assistance completed. Patient did not have IV access ha1 during this emergency room visit. Administered Medications: 21:45 Drug: Acetaminophen PO 1000 mg PO once Route: PO; ha1 22:30 Follow up: Response: No adverse reaction; Marked relief of symptoms; Pain is decreased ha1 Medication: 23:37 VIS not applicable for this client. ha1 Outcome: 22:21 Discharge ordered by MD. rt 23:36 Discharged to home via wheelchair, with crutches, with family, ha1 23:36 Condition: stable 23:36 Discharge instructions given to patient, Instructed on discharge instructions, follow up and referral plans. Demonstrated understanding of instructions, follow-up care, 23:37 Patient left the ED. ha1 Signatures: Dispatcher [employer] EDMS Miguel Johnna [email or web address] Fany Quiroz RN RN ha1 Adin Lewis MD MD rt Corrections: (The following items were deleted from the chart) 01/16 04:08 01/15 20:26 Reassessment: AWAITING ON TRANSPORTATION ha1 ha1
[2025-01-15 23:53] VITALS: TEMP 97; O2SAT 100
[2025-01-15 23:54] VITALS: BP 127/84
== END 2025-01-15 23:37 | disposition home or self-care (01) ==
LOC: ER 20:25
DX: M25.562 Pain in left knee (principal)
CPT/HCPCS: 99283